=== PATIENT | male | born 1985 | race Caucasian/White ===

== ENCOUNTER 2016-03-18 09:30 | Emergency (ER) | payer OTHER ==
[~2016-03-18] VITALS: Ht 185.4 cm; Wt 101.9 kg
[2016-03-18 09:34] VITALS: TEMP 36.8; Ht 185.4 cm; Wt 101.9 kg
[2016-03-18] MEDS ORDERED: MoRPHine SULFATE 4 MG/ML 1 ML CARP\\VIAL IV STA (10:01)
[2016-03-18] MEDS ORDERED: SODIUM CHLORIDE 0.9% 1000ML 1,000 ML IV STA (10:01)
--- NOTE | 2016-03-18 10:05 | EMERGENCY ROOM VISIT NOTE ---
History First contact with patient: 09:48 Chief Complaint: FLANK PAIN Stated Complaint: KIDNEY PAIN, BLOOD IN URINE History of Present Illness The patient is a 31 year old male who presents to the Emergency Room with complaints of bilateral flank pain. The patient states he has had pain over the last several days but is worse today. The pain radiates into the groin. The patient reports hematuria. He reports nausea secondary to pain. He rates his discomfort a 10/10. He denies any fevers. He denies any diarrhea. He denies any penile rash or discharge. He has a history of kidney stones. He denies any falls or injuries. He states that he just had his prostate checked by his family doctor. 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 He states that it stemmed from bilateral pneumonia. He states he was on dialysis for 2 weeks because of it. Review of Systems A 10 system review of systems was completed with positives and pertinent negatives listed in the HPI. Past Medical/Surgical History Medical Problems: (1) Asthma (2) Postconcussive syndrome (3) PTSD (post-traumatic stress disorder) Social History Smoking Status: Never Smoker Housing Status: lives with family Current/Historical Medications Scheduled Albuterol Hfa (Ventolin Hfa), 2-4 PUFFS INH BID Albuterol Sulf (Proventil 0.083% 2.5MG/3ML), 2.5 MG INH QID Fluticasone Furoate-Vilanterol (Breo Ellipta), 2 PUFFS INH BID Sertraline (Zoloft), 100 MG PO DAILY Scheduled PRN Oxycodone Ir (Roxicodone Ir), 1-2 TAB PO Q4H PRN for Pain Allergies Coded Allergies: Penicillins (Unverified Allergy, Intermediate, ITCHY BLOTCHES, 03/18/16) Physical Exam Vital Signs Date Time Temp Pulse Resp B/P Pulse Ox O2 Delivery O2 Flow Rate FiO2 03/18/16 14:27 101 20 133/75 96 Room Air 03/18/16 13:20 99 20 135/78 97 Room Air 03/18/16 11:30 92 20 128/72 97 Room Air 03/18/16 09:34 36.8 98 18 136/76 99 Room Air Physical Exam VITALS: Vitals are noted on the nurse's note and reviewed by myself. Vital signs stable. The patient afebrile. GENERAL:This is a 31 year old male, in no acute distress, nondiaphoretic, well- developed well-nourished. SKIN: The skin was without rashes, erythema, edema, or bruising. There is no tenting of the skin. Capillary reflex less than 2 seconds. HEAD: Normocephalic atraumatic. EARS: The external ears are normal in appearance. EYES: Pupils equal round and reactive to light and accommodation. Conjunctivae without injection, sclerae without icterus. Extraocular movements intact. NOSE: Patent, turbinates without inflammation or discharge. MOUTH: Mucous membranes moist. Tonsils are not enlarged. Pharynx without erythema or exudate. Uvula midline. Airway patent. Tongue does not deviate. NECK: Supple without nuchal rigidity. No lymphadenopathy. No thyromegaly. Cervical spine is nontender. No JVD. HEART: Regular rate and rhythm without murmurs gallops or rubs. LUNGS: Clear to auscultation bilaterally without wheezes, rales or rhonchi. No retractions or accessory muscle use. ABDOMEN: Positive bowel sounds x 4. Soft, diffuse lower abdominal tenderness, without masses or organomegaly. MUSCULOSKELETAL: No muscle atrophy, erythema, or edema noted. Full range of motion in all extremities. Normal gait. Strength 5/5 throughout. NEURO: Patient was alert and oriented to person place and time No focal neurological deficits. Medical Decision & Procedures ER Provider Diagnostic Interpretation: [~ rep ct add3]] ABDOMEN AND PELVIS CT WITHOUT CONTRAST CT DOSE: 617.04 mGy.cm HISTORY: flank pain, hematuria, h/o kidney stone TECHNIQUE: Multiaxial CT images of the abdomen and pelvis were performed without the use of intravenous and oral contrast according to the standard department stone protocol. COMPARISON STUDY: None. FINDINGS: Lung bases are clear. Liver spleen and pancreas appears unremarkable unremarkable. Several bilateral renal calcifications measuring 2 to 3 mm. No evidence for an obstructing urinary tract calculus. Bladder is midline. Bowel pattern is nonobstructive. Patient is status post prior appendectomy. Several scattered sigmoid diverticuli with no evidence for diverticulitis. IMPRESSION: 1. Several bilateral nonobstructing renal calcifications. 2. No evidence for an obstructing urinary tract calculus. 3. Nonobstructive bowel pattern. 4. Prior appendectomy. 5. Scattered clonic diverticuli with no evidence for acute diverticulitis. Laboratory Results 03/18/16 09:52 Red Blood Count 5.08, Mean Corpuscular Volume 68.3, Mean Corpuscular Hemoglobin 19.5, Mean Corpuscular Hemoglobin Concent 28.5, Mean Platelet Volume 9.6 03/18/16 09:52 Test 03/18/16 09:46 03/18/16 09:52 Urine Color RED Urine Appearance CLOUDY (CLEAR) Urine pH 6.5 (4.5-7.5) Urine Specific [place] 1.025 (1.000-1.030) Urine Protein TRACE (NEG) Urine Glucose (UA) NEG (NEG) Urine Ketones NEG (NEG) Urine Occult Blood 3+ (NEG) Urine Nitrite NEG (NEG) Urine Bilirubin NEG (NEG) Urine Urobilinogen NEG (NEG) Urine Leukocyte Esterase NEG (NEG) Urine RBC >30 /hpf (0-4) Urine WBC 5-10 /hpf (0-5) Urine Epithelial Cells 0-5 /lpf (0-5) Urine Bacteria NEG (NEG) White Blood Count 5.86 K/uL (4.8-10.8) Red Blood Count 5.08 M/uL (4.7-6.1) Hemoglobin 9.9 g/dL (14.0-18.0) Hematocrit 34.7 % (42-52) Mean Corpuscular Volume 68.3 fL (80-100) Mean Corpuscular Hemoglobin 19.5 pg (25-34) Mean Corpuscular Hemoglobin Concent 28.5 g/dl (32-36) Platelet Count 389 K/uL (130-400) Mean Platelet Volume 9.6 fL (7.4-10.4) RDW Standard Deviation 42.1 fL (36.4-46.3) RDW Coefficient of Variation 16.8 % (11.5-14.5) Neutrophils % (Manual) 49.6 % Lymphocytes % (Manual) 19.8 % Variant Lymphocytes % (manual) 24.3 % Monocytes % (Manual) 5.4 % Eosinophils % (Manual) 0.9 % Neutrophils # (Manual) 2.91 K/uL (1.4-6.5) Total Absolute Neutrophils 2.91 K/uL (1.4-6.5) Lymphocytes # (Manual) 1.16 K/uL (1.2-3.4) Absolute Variant Lymphocytes 1.42 K/uL Total Absolute Lymphocytes 2.58 K/uL (1.2-3.4) Monocytes # (Manual) 0.32 K/uL (0.11-0.59) Eosinophils # (Manual) 0.05 K/uL (0-0.5) Microcytosis PRESENT Ovalocytes 1+ Anion Gap 11.0 mmol/L (3-11) Est Creatinine Clear Calc Drug Dose 119.8 ml/min Estimated GFR () 101.7 Estimated GFR (Non- 87.7 BUN/Creatinine Ratio 13.0 (10-20) Calcium Level 8.9 mg/dl (8.5-10.1) Total Bilirubin 1.0 mg/dl (0.2-1) Aspartate Amino Transf (AST/SGOT) 35 U/L (15-37) Alanine Aminotransferase (ALT/SGPT) 50 U/L (12-78) Alkaline Phosphatase 113 U/L (45-117) Total Protein 8.0 gm/dl (6.4-8.2) Albumin 4.0 gm/dl (3.4-5.0) Globulin 4.0 gm/dl (2.5-4.0) Albumin/Globulin Ratio 1.0 (0.9-2) Medications Administered Medications (Trade) Dose Ordered Sig/Reena Route Start Time Stop Time Status Last Admin Dose Admin Sodium Chloride (Nss 1000ml) 1,000 ml @ 999 mls/hr Q1H1M STAT IV 03/18/16 10:01 03/18/16 11:01 DC 03/18/16 10:01 999 MLS/HR Morphine Sulfate (MoRPHine SULFATE INJ) 4 mg NOW STAT IV 03/18/16 10:01 03/18/16 10:04 DC 03/18/16 10:18 4 MG Hydromorphone HCl (Dilaudid Inj) 1 mg NOW STAT IV 03/18/16 12:04 03/18/16 12:05 DC 03/18/16 12:11 1 MG ED Course The patient was seen and examined. Previous visits were reviewed. The patient does not have a fever or leukocytosis. He is anemic with hemoglobin and hematocrit 9.9 and 34.7, respectively. He does not have any significant electrolyte abnormality. Urinalysis reveals hematuria. CT scan of the abdomen and pelvis was obtained as above and does not reveal any obvious cause for the hematuria and bilateral flank pain The patient was given 4 mg IV morphine with only minimal improvement in his pain He was given 1 mg IV Dilaudid with marked improvement in his pain He was hydrated with normal saline 1 L The patient has severe bilateral flank pain, hematuria and anemia. He has a history of "multisystem organ failure" secondary to pneumonia. I cannot find the exact etiology of his symptoms at this time. I did recommend that the patient stay in the hospital for further evaluation and management. He may need cystoscopy. The patient declines admission to the hospital. He prefers to follow-up with his family doctor. I feel that the patient does need to see urology in a timely manner if he will not stay in the hospital. Case management and I spoke with [facility] urology office and had some difficulty obtaining a timely appointment. I did ask Dr. Doshi to see the patient and he recommends that the patient be seen by urology on Monday or Monday in the office; otherwise, urology should come to the emergency Department today to see the patient. We were then able to obtain an appointment on Monday at 12:30 PM. The patient was advised of this. The patient was given a prescription for pain medication. The patient should return to the emergency Department with any worsening symptoms. The patient was also seen and examined by who agrees with the assessment and treatment plan. Medical Decision DIFFERENTIAL DIAGNOSIS: Hepatitis, cholecystitis, cholangitis, biliary colic, pancreatitis, pneumonia, subdiaphragmatic abscess, appendicitis, inguinal hernia , nephrolithiasis, inflammatory bowel disease, mesenteric adenitis, peptic ulcer disease, GERD, gastritis, pancreatitis, myocardial infarction, pericarditis, ruptured aortic aneurysm, appendicitis, gastroenteritis, bowel obstruction, splenic infarct, diverticulitis, mesenteric ischemia, metabolic, peritonitis, among others. [place] Drug Monitoring [place] Search Results: patient reviewed within database, see additional documentation Drug Monitoring Findings: The patient does receive pain medication somewhat regularly. However, given the patient's presentation and symptoms I did elect to give him a small prescription for pain medication. Impression Primary Impression: Flank pain Additional Impressions: Hematuria Anemia Departure Information Dispostion Home / Self-Care Condition GOOD Prescriptions Oxycodone Ir (Roxicodone Ir) 5 Mg Tab 1-2 TAB PO Q4H Y for Pain, #30 TAB For Initial Treatment Prov: Gertrude Perla PA-C 03/18/16 Referrals Michael Lee D.ORussell (PCP) Obed Noyola MD Patient Instructions ED Flank Pain Uncertain Cause, ED Hematuria, [facility] Additional Instructions Oxy IR 1-2 tablets every 4-6 hrs as needed for worse pain. No driving or alcohol use with Oxy IR. Follow-up with urology for further evaluation and management Return with any worsening pain, bleeding or generalized worsening symptoms Problem Qualifiers Additional Impressions:
[2016-03-18 10:27] LABS: CALCIUM 8.9 mg/dl (8.5-10.1); CREATININE 1.1 mg/dl (0.60-1.40); HEMATOCRIT 34.7 % (42-52); MEAN CELL VOLUME 68.3 fL (80-100); MEAN CORPUSCULAR HEMOGLOBIN 19.5 pg (25-34); MEAN CORPUSCULAR HGB CONC 28.5 g/dl (32-36); MEAN PLATELET VOLUME 9.6 fL (7.4-10.4); PLATELET COUNT 389 K/uL (130-400); POTASSIUM 3.8 mmol/L (3.5-5.1); RED BLOOD COUNT 5.08 M/uL (4.7-6.1); WHITE BLOOD COUNT 5.86 K/uL (4.8-10.8)
[2016-03-18 10:45] LABS: MANUAL MICROSCOPIC REQUIRED? YES; URINE APPEARANCE CLOUDY (CLEAR); URINE BILIRUBIN NEG (NEG); URINE COLOR RED; URINE NITRITE NEG (NEG); URINE PH 6.5 (4.5-7.5); URINE SPECIFIC GRAVITY 1.025 (1.000-1.030); UROBILINOGEN NEG (NEG)
[2016-03-18 10:48] LABS: COMPLETE YES; EOSINOPHIL % 0.9 %; LYMPH ABS # 1.16 K/uL (1.2-3.4); LYMPHOCYTE % 19.8 %; MICROCYTOSIS PRESENT; NEUTROPHILS % 49.6 %; OVALOCYTES 1+; VARIANT LYM ABS # 1.42 K/uL; VARIANT LYMPHOCYTE % 24.3 %
[2016-03-18 10:52] LABS: URINE RBC >30 /hpf (0-4)
[2016-03-18 10:53] LABS: REVIEW REQ? NO; URINE BACTERIA NEG (NEG)
[2016-03-18 10:54] LABS: ZZUR CULT IF INDIC CLEAN CATCH NO
--- NOTE | 2016-03-18 11:21 | DIAGNOSTIC IMAGING REPORT ---
ABDOMEN AND PELVIS CT WITHOUT CONTRAST CT DOSE: 617.04 mGy.cm HISTORY: flank pain, hematuria, h/o kidney stone TECHNIQUE: Multiaxial CT images of the abdomen and pelvis were performed without the use of intravenous and oral contrast according to the standard department stone protocol. COMPARISON STUDY: None. FINDINGS: Lung bases are clear. Liver spleen and pancreas appears unremarkable unremarkable. Several bilateral renal calcifications measuring 2 to 3 mm. No evidence for an obstructing urinary tract calculus. Bladder is midline. Bowel pattern is nonobstructive. Patient is status post prior appendectomy. Several scattered sigmoid diverticuli with no evidence for diverticulitis. IMPRESSION: 1. Several bilateral nonobstructing renal calcifications. 2. No evidence for an obstructing urinary tract calculus. 3. Nonobstructive bowel pattern. 4. Prior appendectomy. 5. Scattered clonic diverticuli with no evidence for acute diverticulitis. Electronically signed by: Derik Collier M.D. 03/18/2016 11:20 AM Dictated Date/Time: 03/18/2016 11:15 AM
[2016-03-18] MEDS ORDERED: HYDROmorphone INJ 1 MG/ML SYR IV STA (12:04)
[2016-03-18] MEDS ORDERED: OXYC1TAB3 PO (13:38)
[2016-03-18 14:27] VITALS: BP 133/75; PULSE 101; O2SAT 96
--- NOTE | 2016-03-19 08:20 | EMERGENCY ROOM VISIT NOTE ---
ED Visit Note First contact with patient: 09:48 31-year-old male with bilateral flank pain, hematuria and anemia was fully evaluated by Malathi Perla PA-C. Please see her note. I also independently evaluated the patient. We felt that the patient should be admitted but the patient declined. Urology follow-up was arranged. IMPRESSION: Hematuria Anemia
[2016-04-08] MEDS ORDERED: RXC5 PO (10:43)
[2016-04-08] MEDS ORDERED: SENN-65 PO (10:43)
[2016-05-13] MEDS ORDERED: TRAM-10 PO (09:32)
== END 2016-03-18 14:28 | disposition home or self-care (01) ==
LOC: C.EDB 09:34 → C.EDC 14:28
DX: R10.30 Lower abdominal pain, unspecified (principal); R31.9 Hematuria, unspecified; D64.9 Anemia, unspecified; J45.909 Unspecified asthma, uncomplicated; Z87.820 Personal history of traumatic brain injury; Z79.899 Other long term (current) drug therapy; Z88.0 Allergy status to penicillin

== ENCOUNTER → 2016-03-22 | Outpatient (CLI) | payer OTHER ==
[~2016-03-22] MED LIST: ACET-1311 PO; ADVIN25/60 INH; ALBINS/ INH; DICY20TA35 PO; FLUT1INH INH; ONDA4TAB10 SL; OXYC1TAB3 PO; RXC5 PO; SENN-65 PO; SERT-234 PO; TRAM-10 PO; VNTHFA/IN INH
== END | disposition home or self-care (01) ==
LOC: C.PATHSPEC 17:17
PROVIDERS: ATTEND Urology
DX: R31.0 Gross hematuria (principal); R82.8 Abnormal findings on cytological and histological examination of urine

== ENCOUNTER 2016-04-02 10:09 | Inpatient (IN) | payer OTHER ==
[~2016-04-02] VITALS: Ht 185.4 cm; Wt 96.0 kg
[~2016-04-02 10:09] MED LIST changes: -ACET-1311 PO; -ADVIN25/60 INH; -ALBINS/ INH; -DICY20TA35 PO; -FLUT1INH INH; -ONDA4TAB10 SL; -RXC5 PO; -SENN-65 PO; -SERT-234 PO; -TRAM-10 PO; -VNTHFA/IN INH
[2016-04-02] MEDS ORDERED: ACET-1311 PO (10:35)
[2016-04-02] MEDS ORDERED: SODIUM CHLORIDE 0.9% 1000ML 1,000 ML IV STA ×2 (10:50)
[2016-04-02] MEDS ORDERED: ONDANSETRON INJ 2 MG/ML 2 ML VIAL IV STA (10:50)
[2016-04-02 11:20] LABS: BASO % 0.7 %; BASO ABS # 0.04 K/uL (0-0.2); EOS % 2.2 %; HEMATOCRIT 32.7 % (42-52); IG% 0.5 %; LYMPH % 28.9 %; LYMPH ABS # 1.61 K/uL (1.2-3.4); MEAN CELL VOLUME 64.8 fL (80-100); MEAN CORPUSCULAR HEMOGLOBIN 19.4 pg (25-34); MEAN PLATELET VOLUME 9.2 fL (7.4-10.4); NEUT % 58.7 %; PLATELET COUNT 301 K/uL (130-400); RED BLOOD COUNT 5.05 M/uL (4.7-6.1); WHITE BLOOD COUNT 5.58 K/uL (4.8-10.8)
[2016-04-02] MEDS: MoRPHine SULFATE 10 MG/ML CARP/VIAL IV PRN ×3 (11:23→13:41)
[2016-04-02 11:40] LABS: PARTIAL THROMBOPLASTIN RATIO 0.9
[2016-04-02 11:45] LABS: BUN/CREATININE RATIO 11.6 (10-20); CALCIUM 9.1 mg/dl (8.5-10.1); CREATININE 1.1 mg/dl (0.60-1.40); POTASSIUM 3.6 mmol/L (3.5-5.1)
[2016-04-02 11:45] LABS: MANUAL MICROSCOPIC REQUIRED? YES; REVIEW REQ? NO; URINE APPEARANCE CLOUDY (CLEAR); URINE BILIRUBIN NEG (NEG); URINE COLOR RED; URINE NITRITE NEG (NEG); URINE PH 6.5 (4.5-7.5); UROBILINOGEN NEG (NEG)
[2016-04-02 11:46] LABS: COMPLETE YES; MICROCYTOSIS PRESENT; OVALOCYTES 1+
[2016-04-02 11:48] LABS: ALB/GLOB RATIO 1.1 (0.9-2)
[2016-04-02 11:49] LABS: URINE MUCUS PRESENT (NONE PRSENT); URINE RBC >30 /hpf (0-4); URINE WBC >30 /hpf (0-5)
[2016-04-02 11:50] LABS: URINE BACTERIA NEG (NEG); ZZUR CULT IF INDIC CLEAN CATCH YES
--- NOTE | 2016-04-02 12:14 | DIAGNOSTIC IMAGING REPORT ---
EXAMINATION: RENAL ULTRASOUND CLINICAL HISTORY: FLANK PAIN COMPARISON STUDY: CT scan dated to 1016. FINDINGS: The right kidney measures 12.2 cm. The left kidney measures 12.3 cm. There is no evidence of hydronephrosis. No renal masses are visualized. There is a 6 mm echogenic focus within the lower pole the right kidney suspicious for a calculus. There is an 8 mm echogenic focus within the midpole of the left kidney suspicious for a calculus. The bladder was not well-distended. Neither ureteral jet was visualized. IMPRESSION : Bilateral nephrolithiasis. No evidence of hydronephrosis. Electronically signed by: Ananda Jones M.D. 04/02/2016 12:13 PM Dictated Date/Time: 04/02/2016 12:11 PM
[2016-04-02] MEDS ORDERED: CEFTRIAXONE SOD INJ 1 GM ADDVIAL IV STA (12:57)
[2016-04-02] MEDS ORDERED: ALUMINUM/MAGNESIUM/SIMETH (MAALOX MAX) 30 ML UDC PO PRN (13:45)
[2016-04-02] MEDS ORDERED: ONDANSETRON INJ 2 MG/ML 2 ML VIAL IV PRN (13:45)
[2016-04-02] MEDS ORDERED: MAGNESIUM HYDROXIDE SUSP 30 ML UDC PO PRN (13:45)
[2016-04-02] MEDS ORDERED: ACETAMINOPHEN 325 MG TAB PO PRN (13:45)
[2016-04-02] MEDS ORDERED: POLYETHYLENE (MIRALAX) 17 GM PACK PO PRN (13:45)
[2016-04-02 14:00] VITALS: O2SAT 98; Ht 185.4 cm; Wt 96.0 kg
[2016-04-02 14:47] LABS: FERRITIN 4.6 ng/ml (8.0-388.0)
--- NOTE | 2016-04-02 14:51 | EMERGENCY ROOM VISIT NOTE ---
History Report prepared by Luz: Mone Montano Under the Supervision of: Dr. Compa Ponce M.D. First contact with patient: 10:47 Chief Complaint: URINARY SYMPTOMS Stated Complaint: SEVERE KIDNEY PAIN, BLOOD IN URINE Nursing Triage Summary: I was here couple weeks ago for same symptoms. I did follow up with urology. They placed me on antibiotics. They arent helping. my urine is so bloody it almost looks black in color History of Present Illness The patient is a 31 year old male who presents to the Emergency Room with complaints of worsening bilateral flank pain starting 2 week ago. The patient states his current pain is a 10/10 in severity. He states that he was seen at the ED on March 18 where he was diagnosed with kidney stones. He states that over the last 2 weeks he has been urinating blood and he has only been able to urinate very small amounts. He states that he saw his urologist on March 22 where he was prescribed Bactrim for a possible infection. He states his urologist also checked his prostate and he had a cystoscopy and the urologist was not able to determine where the blood was coming from. The patient denies any testicular pain. Source of History: patient Onset: 2 weeks [employer] Position: other (bilateral flank) Symptom Intensity: 10/10 Timing: worsening Note: Associated symptoms: urinating blood, only able to urinate small amounts. Patient denies testicular pain. Review of Systems See HPI for pertinent positives & negatives. A total of 10 systems reviewed and were otherwise negative. Past Medical & Surgical Medical Problems: (1) Asthma (2) Postconcussive syndrome (3) PTSD (post-traumatic stress disorder) Family History Diabetes mellitus FH: heart disease FHx: lung disease Hypertension Kidney disease Kidney stones Social History Smoking Status: Never Smoker Marital Status: single Housing Status: lives with family Occupation Status: unemployed Current/Historical Medications Scheduled Albuterol Hfa (Ventolin Hfa), 2-4 PUFFS INH BID Albuterol Sulf (Proventil 0.083% 2.5MG/3ML), 2.5 MG INH QID Fluticasone Furoate-Vilanterol (Breo Ellipta), 2 PUFFS INH BID Sertraline (Zoloft), 100 MG PO DAILY Scheduled PRN Acetaminophen (Tylenol), 650 MG PO DAILY PRN for Pain Allergies Coded Allergies: Penicillins (Unverified Allergy, Intermediate, ITCHY BLOTCHES, 04/02/16) Physical Exam Vital Signs Date Time Temp Pulse Resp B/P Pulse Ox O2 Delivery O2 Flow Rate FiO2 04/02/16 14:00 98 Room Air 04/02/16 13:30 85 18 135/95 98 Room Air 04/02/16 11:18 87 18 136/83 96 Room Air 04/02/16 10:19 37.1 99 18 133/101 99 Room Air Physical Exam GENERAL: Patient is in no acute distress. HEENT: No acute trauma, normocephalic atraumatic, mucous membranes moist, no nasal congestion, no scleral icterus. NECK: No stridor, no adenopathy, no meningismus, trachea is midline. LUNGS: Clear to auscultation bilaterally, no wheeze, no rhonchi, breath sounds equal. HEART: Without murmurs gallops or rubs, regular rate and rhythm. ABDOMEN: Soft, diffusely tender, bowel sounds positive, no hernias, no peritonitis. EXTREMITIES: No cyanosis or edema, full range of motion of all the joints without pain or difficulty, no signs for acute trauma. BACK: Bilateral flank discomfort with percussion. NEUROLOGIC: Oriented x 3, no acute motor or sensory deficits, no focal weakness. SKIN: No rash, no jaundice, no diaphoresis. Medical Decision & Procedures ER Provider Diagnostic Interpretation: US results as stated below per my review and radiologist interpretation: EXAMINATION: RENAL ULTRASOUND CLINICAL HISTORY: FLANK PAIN COMPARISON STUDY: CT scan dated to 1016. FINDINGS: The right kidney measures 12.2 cm. The left kidney measures 12.3 cm. There is no evidence of hydronephrosis. No renal masses are visualized. There is a 6 mm echogenic focus within the lower pole the right kidney suspicious for a calculus. There is an 8 mm echogenic focus within the midpole of the left kidney suspicious for a calculus. The bladder was not well-distended. Neither ureteral jet was visualized. IMPRESSION : Bilateral nephrolithiasis. No evidence of hydronephrosis. Electronically signed by: Ananda Jones M.D. 04/02/2016 12:13 PM Dictated Date/Time: 04/02/2016 12:11 PM Laboratory Results 04/02/16 10:40 Red Blood Count 5.05, Mean Corpuscular Volume 64.8, Mean Corpuscular Hemoglobin 19.4, Mean Corpuscular Hemoglobin Concent 30.0, Mean Platelet Volume 9.2, Neutrophils (%) (Auto) 58.7, Lymphocytes (%) (Auto) 28.9, Monocytes (%) (Auto) 9.0, Eosinophils (%) (Auto) 2.2, Basophils (%) (Auto) 0.7, Neutrophils # (Auto) 3.28, Lymphocytes # (Auto) 1.61, Monocytes # (Auto) 0.50, Eosinophils # (Auto) 0.12, Basophils # (Auto) 0.04 04/02/16 10:40 Test 04/02/16 10:30 04/02/16 10:40 04/02/16 13:09 04/02/16 13:51 Urine Color RED Urine Appearance CLOUDY (CLEAR) Urine pH 6.5 (4.5-7.5) Urine Specific [place] 1.020 (1.000-1.030) Urine Protein 2+ (NEG) Urine Glucose (UA) NEG (NEG) Urine Ketones NEG (NEG) Urine Occult Blood 3+ (NEG) Urine Nitrite NEG (NEG) Urine Bilirubin NEG (NEG) Urine Urobilinogen NEG (NEG) Urine Leukocyte Esterase NEG (NEG) Urine RBC >30 /hpf (0-4) Urine WBC >30 /hpf (0-5) Urine Epithelial Cells 5-10 /lpf (0-5) Urine Bacteria NEG (NEG) Urine Mucus PRESENT (NONE PRSENT) White Blood Count 5.58 K/uL (4.8-10.8) Red Blood Count 5.05 M/uL (4.7-6.1) Hemoglobin 9.8 g/dL (14.0-18.0) Hematocrit 32.7 % (42-52) Mean Corpuscular Volume 64.8 fL (80-100) Mean Corpuscular Hemoglobin 19.4 pg (25-34) Mean Corpuscular Hemoglobin Concent 30.0 g/dl (32-36) Platelet Count 301 K/uL (130-400) Mean Platelet Volume 9.2 fL (7.4-10.4) Neutrophils (%) (Auto) 58.7 % Lymphocytes (%) (Auto) 28.9 % Monocytes (%) (Auto) 9.0 % Eosinophils (%) (Auto) 2.2 % Basophils (%) (Auto) 0.7 % Neutrophils # (Auto) 3.28 K/uL (1.4-6.5) Lymphocytes # (Auto) 1.61 K/uL (1.2-3.4) Monocytes # (Auto) 0.50 K/uL (0.11-0.59) Eosinophils # (Auto) 0.12 K/uL (0-0.5) Basophils # (Auto) 0.04 K/uL (0-0.2) RDW Standard Deviation 38.5 fL (36.4-46.3) RDW Coefficient of Variation 16.5 % (11.5-14.5) Immature Granulocyte % (Auto) 0.5 % Immature Granulocyte # (Auto) 0.03 K/uL (0.00-0.02) Microcytosis PRESENT Ovalocytes 1+ Activated Partial Thromboplast Time 23.8 SECONDS (21.0-31.0) Partial Thromboplastin Ratio 0.9 Anion Gap 9.0 mmol/L (3-11) Est Creatinine Clear Calc Drug Dose 120.5 ml/min Estimated GFR () 101.7 Estimated GFR (Non- 87.7 BUN/Creatinine Ratio 11.6 (10-20) Calcium Level 9.1 mg/dl (8.5-10.1) Total Bilirubin 2.1 mg/dl (0.2-1) Aspartate Amino Transf (AST/SGOT) 16 U/L (15-37) Alanine Aminotransferase (ALT/SGPT) 27 U/L (12-78) Alkaline Phosphatase 101 U/L (45-117) Total Creatine Kinase 50 U/L (39-308) C-Reactive Protein < 0.29 mg/dl (0-0.29) Total Protein 7.7 gm/dl (6.4-8.2) Albumin 4.0 gm/dl (3.4-5.0) Globulin 3.7 gm/dl (2.5-4.0) Albumin/Globulin Ratio 1.1 (0.9-2) Lipase 123 U/L (73-393) Procalcitonin 0.08 ng/mL (0-0.5) Transferrin % Saturation % (20-50) Test 04/02/16 14:12 Laboratory results reviewed by me. Medications Administered Medications (Trade) Dose Ordered Sig/Reena Route Start Time Stop Time Status Last Admin Dose Admin Ondansetron HCl 4 mg 4 mg NOW STAT IV 04/02/16 10:50 04/02/16 10:55 DC 04/02/16 11:23 4 MG Sodium Chloride 1,000 ml @ 999 mls/hr Q1H1M STAT IV 04/02/16 10:50 04/02/16 11:50 DC 04/02/16 11:18 999 MLS/HR Sodium Chloride (Nss 1000ml) 1,000 ml @ 200 mls/hr Q5H STAT IV 04/02/16 10:50 04/02/16 15:49 04/02/16 12:11 200 MLS/HR Morphine Sulfate (MoRPHine SULFATE INJ) 6 mg Q15M PRN IV 04/02/16 11:00 04/16/16 10:59 04/02/16 13:41 6 MG Ceftriaxone Sodium (Rocephin Inj) 1 gm NOW STAT IV 04/02/16 12:57 04/02/16 12:59 DC 04/02/16 13:41 1 GM ED Course 1049: The patient was evaluated in room C5. A complete history and physical exam was performed. 1050: Ordered Sodium Chloride 1,000 ml @ 200 mls/hr IV, Sodium Chloride 1,000 ml @ 999 mls/hr IV, Zofran Inj 4 mg IV. 1100: Ordered Morphine Sulfate 6 mg IV. 1243: I discussed the case with Dr. Feng Urology. He review his records from his visit and did not think the patient's symptoms were from a stone but put the patient on Bactrim as a precaution. 1250: I reevaluated the patient and he was resting comfortably. I discussed with him the possibility of staying for further evaluation and he agreed. 1257: Ordered Rocephin Inj 1 gm IV. 1307: I discussed the case with Dr. Mendez [facility] Hospitalist. He agreed to evaluate the patient for further management and care. Medical Decision The patient is a 31 year old male who presents to the ED with complaints of urinary symptoms. Differential diagnoses considered include urinary retention, real colic, dehydration, electrolyte imbalance, anemia, urinary infection, and malignancy. There is no leukocytosis. The patient is quite anemic with a hemoglobin in the range of 9. No significant electrolyte abnormality, kidney failure or hepatitis. There is no pancreatitis, there is no coagulopathy. Urinalysis is consistent with possible infection with white cells and red cells. Urine culture is pending. Renal ultrasound does not show hydronephrosis. The patient presents with bilateral flank pain, hematuria. He is anemic with a dirty-appearing urine. He is already on Bactrim. He has been seen by urology as an outpatient. Given the circumstances, admission/observation is warranted. He may have glomerulonephritis, he may have a bilateral pyelonephritis. Further care and evaluation in the hospital is needed. He received IV saline, IV morphine and IV Zofran, he received IV ceftriaxone. I spoke with the patient and case management. The on-call hospitalist was consulted. Consults Time Called: 1242 Consulting Physician: Urology Returned Call: [phone] I discussed the case with Dr. Jung Quarles. He review his records from his visit and did not think the patient's symptoms were from a stone but put the patient on Bactrim as a precaution. Additional Consults: Time Called: 1257 Consulted Physician: Dr. Vanessa SCHWARTZ Hospitalist Returned Call: [phone] Additional Comments: I discussed the case with Dr. Vanessa SCHWARTZ Hospitalist. He agreed to evaluate the patient for further management and care. Impression Primary Impression: Bilateral flank pain Additional Impressions: Hematuria Anemia Scribe Attestation The scribe's documentation has been prepared under my direction and personally reviewed by me in its entirety. I confirm that the note above accurately reflects all work, treatment, procedures, and medical decision making performed by me. Departure Information Dispostion Being Evaluated By Hospitalist Referrals Michael Lee D.O. (PCP) Patient Instructions My [facility] Problem Qualifiers
[2016-04-02 15:06] LABS: ANTI-STREP O SCR: 5YRS OR > POS IU/ml (<200 IU)
[2016-04-02 15:07] LABS: ANTI-STREP O TITRE: 5YR OR > 800 IU/ml (<200 IU)
[2016-04-02] MEDS ORDERED: HYDROmorphone INJ 0.5 MG/0.5 ML SYR IV STA (15:08)
[2016-04-02] MEDS ORDERED: ALBUTEROL HFA 8 GM INHALER INH PRN (15:15)
--- NOTE | 2016-04-02 15:35 | History and Physical ---
History & Physical Date & Time of Service: Apr 02, 2016 at 15:33 Chief Complaint: Severe Kidney Pain, Blood In Urine Primary Care Physician: Michael Lee D.O. Family History Diabetes mellitus FH: heart disease FHx: lung disease Hypertension Kidney disease Kidney stones Social History Smoking Status: Never Smoker Marital Status: single Occupational Status: unemployed Allergies Coded Allergies: Penicillins (Unverified Allergy, Intermediate, ITCHY BLOTCHES, 04/02/16) Home Medications Scheduled Albuterol Hfa (Ventolin Hfa), 2-4 PUFFS INH BID Albuterol Sulf (Proventil 0.083% 2.5MG/3ML), 2.5 MG INH QID Fluticasone Furoate-Vilanterol (Breo Ellipta), 2 PUFFS INH BID Sertraline (Zoloft), 100 MG PO DAILY Scheduled PRN Acetaminophen (Tylenol), 650 MG PO DAILY PRN for Pain Physical Exam Vital Signs Date Time Temp Pulse Resp B/P Pulse Ox O2 Delivery O2 Flow Rate FiO2 04/02/16 14:54 83 18 162/98 96 Room Air 04/02/16 14:00 98 Room Air 04/02/16 13:30 85 18 135/95 98 Room Air 04/02/16 11:18 87 18 136/83 96 Room Air 04/02/16 10:19 37.1 99 18 133/101 99 Room Air Diagnostics Laboratory Results Results Past 24 Hours Test 04/02/16 10:30 04/02/16 10:40 04/02/16 14:12 Range/Units Urine Color RED Urine Appearance CLOUDY CLEAR Urine pH 6.5 4.5-7.5 Urine Specific [place] 1.020 1.000-1.030 Urine Protein 2+ NEG Urine Glucose (UA) NEG NEG Urine Ketones NEG NEG Urine Occult Blood 3+ NEG Urine Nitrite NEG NEG Urine Bilirubin NEG NEG Urine Urobilinogen NEG NEG Urine Leukocyte Esterase NEG NEG Urine RBC >30 0-4 /hpf Urine WBC >30 0-5 /hpf Urine Epithelial Cells 5-10 0-5 /lpf Urine Bacteria NEG NEG Urine Mucus PRESENT NONE PRSENT White Blood Count 5.58 4.8-10.8 K/uL Red Blood Count 5.05 4.7-6.1 M/uL Hemoglobin 9.8 14.0-18.0 g/dL Hematocrit 32.7 42-52 % Mean Corpuscular Volume 64.8 80-100 fL Mean Corpuscular Hemoglobin 19.4 25-34 pg Mean Corpuscular Hemoglobin Concent 30.0 32-36 g/dl Platelet Count 301 130-400 K/uL Mean Platelet Volume 9.2 7.4-10.4 fL Neutrophils (%) (Auto) 58.7 % Lymphocytes (%) (Auto) 28.9 % Monocytes (%) (Auto) 9.0 % Eosinophils (%) (Auto) 2.2 % Basophils (%) (Auto) 0.7 % Neutrophils # (Auto) 3.28 1.4-6.5 K/uL Lymphocytes # (Auto) 1.61 1.2-3.4 K/uL Monocytes # (Auto) 0.50 0.11-0.59 K/uL Eosinophils # (Auto) 0.12 0-0.5 K/uL Basophils # (Auto) 0.04 0-0.2 K/uL RDW Standard Deviation 38.5 36.4-46.3 fL RDW Coefficient of Variation 16.5 11.5-14.5 % Immature Granulocyte % (Auto) 0.5 % Immature Granulocyte # (Auto) 0.03 0.00-0.02 K/uL Microcytosis PRESENT Ovalocytes 1+ Erythrocyte Sedimentation Rate 4 0-14 mm/hr Absolute Reticulocyte Count 0.09 0.02-0.10 10^6/uL Percent Reticulocyte Count 1.7 0.5-2.0 % Activated Partial Thromboplast Time 23.8 21.0-31.0 SECONDS Partial Thromboplastin Ratio 0.9 Sodium Level 134 136-145 mmol/L Potassium Level 3.6 3.5-5.1 mmol/L Chloride Level 100 98-107 mmol/L Carbon Dioxide Level 25 21-32 mmol/L Anion Gap 9.0 3-11 mmol/L Blood Urea Nitrogen 13 7-18 mg/dl Creatinine 1.10 0.60-1.40 mg/dl Est Creatinine Clear Calc Drug Dose 120.5 ml/min Estimated GFR () 101.7 Estimated GFR (Non- 87.7 BUN/Creatinine Ratio 11.6 10-20 Random Glucose 99 70-99 mg/dl Calcium Level 9.1 8.5-10.1 mg/dl Total Bilirubin 2.1 0.2-1 mg/dl Aspartate Amino Transf (AST/SGOT) 16 15-37 U/L Alanine Aminotransferase (ALT/SGPT) 27 12-78 U/L Alkaline Phosphatase 101 45-117 U/L Total Creatine Kinase 50 39-308 U/L C-Reactive Protein < 0.29 0-0.29 mg/dl Total Protein 7.7 6.4-8.2 gm/dl Albumin 4.0 3.4-5.0 gm/dl Globulin 3.7 2.5-4.0 gm/dl Albumin/Globulin Ratio 1.1 0.9-2 Lipase 123 73-393 U/L Procalcitonin 0.08 0-0.5 ng/mL Iron Level 18 35-175 mcg/dl Total Iron Binding Capacity 429 250-450 mcg/dl Transferrin 344 200-360 mg/dl Transferrin % Saturation 4 20-50 % Ferritin 4.6 8.0-388.0 ng/ml Direct Bilirubin 0.3 0-0.2 mg/dl Lactate Dehydrogenase 136 87-241 U/L Anti-Streptolysin O Antibody Screen POS <200 IU IU/ml Anti-Streptolysin O Antibody Titer 800 <200 IU IU/ml Microbiology Results 04/02/16 Urine Culture, Received Pending Impression Assessment and Plan admit #[id number] Advanced Directives Existing Living Will: No Existing Power of Manager Life: No VTE Prophylaxis VTE Risk Assessment Done? Y/N: Yes Risk Level: Low Given or contraindicated: Contraindicated
[2016-04-02 15:47] VITALS: O2SAT 95
[2016-04-02 16:00] VITALS: BP 146/99; PULSE 83; TEMP 36.5; O2SAT 98
--- NOTE | 2016-04-02 16:25 | HISTORY & PHYSICAL EXAMINATION ---
DATE OF ADMISSION: 04/02/2016 CHIEF COMPLAINT: Flank pain and peeing blood. 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 One time he noted it was almost to the point of looking black. He came to the ER on March 18 after it had been going on he noted, probably 2 days or so. He did relate a history of kidney stones so he just figured he probably had a kidney stone, but once the pain and nausea were worse he came to the ER for further evaluation then. At that point in time CT abdomen and pelvis showed several bilateral renal calcifications measuring 2-3 mm, but no obstructing urinary tract calculus. His bladder was midline, bowel pattern nonobstructed, scattered diverticula without diverticulitis. His hemoglobin was about 10, his creatinine was 1.1. His urinalysis was red, cloudy, greater than 30 red cells, 5-10 white cells. It was recommended given that it was not clear why he was having hematuria and flank pain, it was recommended that he stay in the hospital to have more timely evaluation and treatment, but at that point he declined hospital admission, wanted to follow up with his primary and urology as an outpatient and this was arranged. He then followed up with urology in the office. They did a cystoscopy that was clean, not even seeing evidence of hematuria at the time, but then the patient's symptoms continued and worsened and progressed to where he came back to the ER today with again severe pain radiating bilaterally from his back around to his front and groin, constant pain but goes from probably moderate to severe whenever he has to void. No testicular pain. No penile discharge. No fevers, chills, or sweats. He had related chills and sweats to the ER physician, but after I clarify he notes this is really only whenever he is having severe pain and it seems to be more probably related to the pain than to the disease process itself. He had been on antibiotics, the antibiotics have not really helped at all. I believe he was on Bactrim. Cultures have been negative from the . In review of systems, most specifically he denies any rashes. Denies any upper respiratory symptoms or sore throat or even asthma issues through the fall. He relates probably his last upper respiratory infection was in December. No other focal symptoms. No fevers. REVIEW OF SYSTEMS: Otherwise entirely negative except for as above. PAST MEDICAL HISTORY: Includes asthma that sounds to be mild to moderate persistent, PTSD, post-concussive syndrome, nephrolithiasis, post-traumatic intracranial hemorrhage after a 17 foot fall that appeared to be nonsurgical and about 7 years ago what sounded to be septic shock and multiorgan failure related to bilateral pneumonia during which time he coded 4 times was resuscitated, had renal failure and was on dialysis for several weeks even after discharge before having renal recovery. MEDICATIONS: Brio 1 puff daily, Zoloft daily, albuterol p.r.n. shortness of breath or wheeze. ALLERGIES: INCLUDE PENICILLIN. PAST SURGICAL HISTORY: Includes cystoscopy about a week ago that had no significant findings. He has had previous cystoscopy and ureteral stentings for kidney stones, wisdom teeth extraction, tonsillectomy, adenoidectomy, myringotomy, right knee "reconstruction", a left shoulder "reconstruction", left elbow fracture due to trauma, appendectomy, clavicular fracture and while also not surgical with that fall from 17 feet he also had an L4-5 fracture and what sounds to be a sacral, coccygeal or both fracture. SOCIAL HISTORY: No current alcohol. No smoking. He does chew about a can of tobacco a week. 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 He is . ALLERGIES: LISTED PENICILLINS. FAMILY HISTORY: His father had an MS, it sounds like fairly young and then had carotid disease leading to a stroke which appears to be the reason he . His great grandfather had kidney problems, although it is not clear what, his mom notes that it was in the 1950s and she is not sure they really would have known what was going on with his kidneys then. His mom has some sort of anatomic anomaly with her kidneys, whether it is posterior urethral valves or an extra ureter but she notes that she has lot of kidney infections as a kid, but really nothing since and there is a distant history but apparently fairly strong, but second degree relatives and further of lupus on the maternal side. PHYSICAL EXAMINATION: VITAL SIGNS: Temperature 37.1, pulse 99, respiratory rate 18, blood pressure 133/101, pulse ox 99% on room air. GENERAL: He is awake, alert, oriented x3, pleasant, appears to be in a moderate degree of discomfort with very obvious waves of pain that cause him to appear in severe pain related distress, albeit briefly episodically throughout the interview and exam. HEAD, EYES, EARS, NOSE, AND THROAT: Normocephalic, atraumatic. Mucous membranes are moist. CARDIOVASCULAR: Regular without rubs, murmurs, or gallops. LUNGS: Clear to auscultation bilaterally. No rales, rhonchi, or wheezes with good effort. ABDOMEN: Soft, nondistended. He has tenderness pretty much everywhere, but the tenderness he notes really relates back to the fact that pushing just about anywhere causes back and flank pain. He has rather exquisitely bilateral CVA tenderness and maybe mild suprapubic tenderness. EXTREMITIES: Show no cyanosis, clubbing or edema. No calf tenderness. SKIN: Shows no rashes. No pallor or icterus. NEUROLOGIC: Shows cranial nerves II-XII to be grossly intact. Gross motor and sensory are intact. MUSCULOSKELETAL EXAMINATION: Yields no gross lesions, deformities or abnormalities. MENTAL STATE: Shows good recent and remote recall. Normal mood and affect. Good judgment and insight. LABORATORY AND DIAGNOSTICS: His CBC shows a white count of 5.58 with a hemoglobin of 9.8 with an MCV of 64.8, platelets 301. His previous CBC on record from the showed a hemoglobin of 9.9, MCV at the time was 68.3. Complete metabolic panel with sodium 134, potassium 3.6, chloride 100, CO2 25, BUN 13, creatinine 1.1, calcium 9.1, glucose 99. Iron 18, TIBC 429, transferrin 344%, saturation 4, ferritin 4.6, total bili 2.1 with a direct of 0.3, AST 16, ALT 27, alkaline phosphatase 101. LDH 136, CK total 50, CRP less than 0.29, total protein 7.7, albumin 4, lipase 123, procalcitonin 0.08, PTT of 23.8. Urinalysis is red, cloudy, specific gravity 1.020, 2+ protein, 3+ blood, greater than 30 red cells, greater than 30 white cells, 5-10 epithelial cells, mucous present. ASO titer is positive at greater than 800. Renal ultrasound done today shows the right kidney 12.2 cm and left 12.3, no evidence of hydronephrosis, no renal masses, 6 mm echogenic focus within the lower pole of the right kidney suspicious for a calculus, 8 mm echogenic focus mid pole of the left kidney suspicious for a calculus, bladder not well distended, neither ureteral jet visualized. CT abdomen and pelvis done on the and as described earlier showed several bilateral nonobstructing renal calcifications. No evidence for an obstructing urinary tract calculus, nonobstructive bowel pattern, prior appendectomy, scattered diverticuli but no evidence for diverticulitis. ASSESSMENT AND PLAN: 1. Hematuria and flank pain. 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 Fortunately, he has preserved and stable renal function given his creatinine is 1.1 and was 1.1 two weeks ago. Does not appear likely that he is going to have any acute deterioration in his GFR. With the ASO titer being elevated post-strep glomerulonephritis is possible. Certainly with his age, preserved kidney function and IgA nephropathy is possible. Complement levels are pending and with his somewhat distant but fairly strong family history of lupus, lupus nephritis is also possible, although I would probably expect worse kidney function with that, but an RANOLDO screening is pending. Will for now admit him to med/surg, continue to follow his kidney function, check a strep culture, although he has been given a gram of Rocephin already and he had been on Bactrim already so this may be negative anyway and research further the significance of the ASO. Manage pain with Tylenol, Percocet, or Dilaudid p.r.n. mild, moderate and severe pain respectively and keep him hydrated with maintenance fluids until it is clear that he is eating and drinking well enough to keep up. At some point here we may need to consider a renal biopsy. I discussed this with him, but first certainly will need to follow up on the above noted studies and again probably will need to have a nephrology consult, but given that he has got no deterioration of renal function we will follow closely first. Given his mildly elevated total bilirubin and anemia it is far less likely this is hemolytic process in disguise particularly given that he has got red cells on his urine, not just dipstick blood, but will keep that in mind. 2. Microcytic anemia. He definitely appears to be iron deficient, will need to replace this. Given his extremely small MCV as well as history of a rather surprising amount of comorbidities for what appears to be an otherwise healthy 31-year-old male will send a hemoglobin electrophoresis and follow his CBC. Fortunately, it does not appear he will need transfused and his hemoglobin is fairly stable from previous. Given that this is iron deficiency if no other etiology is unearthed certain for completeness sake he will need a colonoscopy at some point in the future. 3. Elevated bilirubin, see above. It may not be anything given that it is only 2, but will follow his hemoglobin. His LDH was normal. I doubt we have a hemolytic process going on, but will need to follow. 4. Mild hyponatremia. Follow up. 5. Asthma. Continue his Breo and albuterol p.r.n. 6. Pyuria, the white cells in his urine almost certainly relate to the more than likely nephrotic process at play. Given his CRP and procalcitonin values as well as the fact that he has been treated with antibiotics with no improvement in his symptoms, I doubt this is an atypical presentation of a pyelonephritis. 7. Nephrolithiasis. These appear to be silently present in his situation rather than active contributor. Obviously, we will need to continue to follow him clinically. 8. Deep venous thrombosis prophylaxis. Ambulation. Overall, he appears to be low risk and beyond that pharmacologic prophylaxis would be obviously contraindicated given his hematuria. 9. Elevated blood pressures. They have been up and down, as high as 162 systolic and 101 diastolic, although at separate times, but as low as 136/83. Given the episodic nature of it it is more likely related to pain then the nephrotic syndrome but obviously will need to continue to follow. 10. Posttraumatic stress disorder. Continue his Zoloft.
[2016-04-02 17:20] VITALS: BP 159/73; PULSE 79; O2SAT 98
[2016-04-02 17:40] LABS: MANUAL MICROSCOPIC REQUIRED? NO; REVIEW REQ? NO; URINE APPEARANCE TURBID (CLEAR); URINE BILIRUBIN NEG (NEG); URINE COLOR RED; URINE NITRITE POS (NEG); URINE SPECIFIC GRAVITY 1.014 (1.000-1.030); UROBILINOGEN NEG (NEG)
[2016-04-02] MEDS: HYDROmorphone INJ 0.5 MG/0.5 ML SYR IV PRN ×2 (20:01→23:55)
[2016-04-02] MEDS: OXYCODONE/ACETAMINOPHEN 5-325 TAB PO PRN (21:05)
[2016-04-02 23:30] VITALS: BP 156/91; PULSE 88; TEMP 36.8; O2SAT 96
[2016-04-03] MEDS: OXYCODONE/ACETAMINOPHEN 5-325 TAB PO PRN ×4 (02:11→23:24)
[2016-04-03] MEDS: HYDROmorphone INJ 0.5 MG/0.5 ML SYR IV PRN ×2 (05:08→10:47)
[2016-04-03 06:41] LABS: HEMATOCRIT 29.1 % (42-52); MEAN CELL VOLUME 66.9 fL (80-100); MEAN CORPUSCULAR HEMOGLOBIN 19.3 pg (25-34); MEAN CORPUSCULAR HGB CONC 28.9 g/dl (32-36); MEAN PLATELET VOLUME 8.8 fL (7.4-10.4); PLATELET COUNT 233 K/uL (130-400); RED BLOOD COUNT 4.35 M/uL (4.7-6.1); WHITE BLOOD COUNT 4.77 K/uL (4.8-10.8)
[2016-04-03 07:00] LABS: BUN/CREATININE RATIO 8.6 (10-20); CALCIUM 8.6 mg/dl (8.5-10.1); CREATININE 1.2 mg/dl (0.60-1.40)
[2016-04-03 07:01] LABS: BASO % 0.8 %; BASO ABS # 0.04 K/uL (0-0.2); COMPLETE YES; IG% 0.4 %; LYMPH % 44.9 %; LYMPH ABS # 2.14 K/uL (1.2-3.4); MICROCYTOSIS PRESENT; MONO % 7.5 %; NEUT % 41.4 %; OVALOCYTES 1+; POLYCHROMASIA 1+
[2016-04-03 07:09] VITALS: BP 116/74; PULSE 77; TEMP 36.6; O2SAT 99
[2016-04-03] MEDS: SERTRALINE HCL 100 MG TAB PO SCH (07:31)
--- NOTE | 2016-04-03 07:47 | Progress Note ---
Subjective Date of Service: Apr 03, 2016. Subjective this pt is with some persistent flank pain, also persistent hematuria Problem List Medical Problems: (1) Anemia Status: Acute (2) Anemia Status: Acute (3) Bilateral flank pain Status: Acute (4) Flank pain Status: Acute (5) Hematuria Status: Acute (6) Hematuria Status: Acute Review of Systems Constitutional: + weakness, No chills, No fever Respiratory: No cough, No shortness of breath Cardiac: No chest pain, No edema Abdomen: + pain, No diarrhea, No nausea, No vomiting Male : + hematuria, No dysuria Objective Vital Signs Date Time Temp Pulse Resp B/P Pulse Ox O2 Delivery O2 Flow Rate FiO2 04/03/16 07:09 36.6 77 19 116/74 99 Room Air 04/02/16 23:50 Room Air 04/02/16 23:30 36.8 88 18 156/91 96 Room Air 04/02/16 16:50 Room Air 04/02/16 16:00 36.5 83 18 146/99 98 Room Air 04/02/16 15:47 88 18 138/91 95 Room Air 04/02/16 14:54 83 18 162/98 96 Room Air 04/02/16 14:00 98 Room Air 04/02/16 13:30 85 18 135/95 98 Room Air 04/02/16 11:18 87 18 136/83 96 Room Air 04/02/16 10:19 37.1 99 18 133/101 99 Room Air Physical Exam General Appearance: WD/WN, + mild distress Neck: supple, no JVD Respiratory/Chest: chest non-tender, lungs clear, normal breath sounds Cardiovascular: regular rate, rhythm, no murmur Abdomen: normal bowel sounds, soft, + tenderness (cva b/l L>R) Extremities: no pedal edema, no calf tenderness Neurologic/Psychiatric: alert, oriented x 3 Laboratory Results Last 24 Hours Test 04/02/16 10:30 04/02/16 10:40 04/02/16 14:12 04/02/16 17:23 Urine Color RED RED Urine Appearance CLOUDY TURBID Urine pH 6.5 6.0 Urine Specific [place] 1.020 1.014 Urine Protein 2+ 1+ Urine Glucose (UA) NEG NEG Urine Ketones NEG NEG Urine Occult Blood 3+ 3+ Urine Nitrite NEG POS Urine Bilirubin NEG NEG Urine Urobilinogen NEG NEG Urine Leukocyte Esterase NEG SMALL Urine RBC >30 /hpf Urine WBC >30 /hpf Urine Epithelial Cells 5-10 /lpf Urine Bacteria NEG Urine Mucus PRESENT White Blood Count 5.58 K/uL Red Blood Count 5.05 M/uL Hemoglobin 9.8 g/dL Hematocrit 32.7 % Mean Corpuscular Volume 64.8 fL Mean Corpuscular Hemoglobin 19.4 pg Mean Corpuscular Hemoglobin Concent 30.0 g/dl Platelet Count 301 K/uL Mean Platelet Volume 9.2 fL Neutrophils (%) (Auto) 58.7 % Lymphocytes (%) (Auto) 28.9 % Monocytes (%) (Auto) 9.0 % Eosinophils (%) (Auto) 2.2 % Basophils (%) (Auto) 0.7 % Neutrophils # (Auto) 3.28 K/uL Lymphocytes # (Auto) 1.61 K/uL Monocytes # (Auto) 0.50 K/uL Eosinophils # (Auto) 0.12 K/uL Basophils # (Auto) 0.04 K/uL RDW Standard Deviation 38.5 fL RDW Coefficient of Variation 16.5 % Immature Granulocyte % (Auto) 0.5 % Immature Granulocyte # (Auto) 0.03 K/uL Microcytosis PRESENT Ovalocytes 1+ Erythrocyte Sedimentation Rate 4 mm/hr Absolute Reticulocyte Count 0.09 10^6/uL Percent Reticulocyte Count 1.7 % Activated Partial Thromboplast Time 23.8 SECONDS Partial Thromboplastin Ratio 0.9 Sodium Level 134 mmol/L Potassium Level 3.6 mmol/L Chloride Level 100 mmol/L Carbon Dioxide Level 25 mmol/L Anion Gap 9.0 mmol/L Blood Urea Nitrogen 13 mg/dl Creatinine 1.10 mg/dl Est Creatinine Clear Calc Drug Dose 120.5 ml/min Estimated GFR () 101.7 Estimated GFR (Non- 87.7 BUN/Creatinine Ratio 11.6 Random Glucose 99 mg/dl Calcium Level 9.1 mg/dl Total Bilirubin 2.1 mg/dl Aspartate Amino Transf (AST/SGOT) 16 U/L Alanine Aminotransferase (ALT/SGPT) 27 U/L Alkaline Phosphatase 101 U/L Total Creatine Kinase 50 U/L C-Reactive Protein < 0.29 mg/dl Total Protein 7.7 gm/dl Albumin 4.0 gm/dl Globulin 3.7 gm/dl Albumin/Globulin Ratio 1.1 Lipase 123 U/L 25-Hydroxy Vitamin D Total 9.9 ng/ml Procalcitonin 0.08 ng/mL Iron Level 18 mcg/dl Total Iron Binding Capacity 429 mcg/dl Transferrin 344 mg/dl Transferrin % Saturation 4 % Ferritin 4.6 ng/ml Direct Bilirubin 0.3 mg/dl Lactate Dehydrogenase 136 U/L Anti-Streptolysin O Antibody Screen POS IU/ml Anti-Streptolysin O Antibody Titer 800 IU/ml Urine WBC (Auto) 5-10 /hpf Urine RBC (Auto) >30 /hpf Urine Hyaline Casts (Auto) 0 /lpf Urine Epithelial Cells (Auto) 5-10 /lpf Urine Bacteria (Auto) NEG Test 04/03/16 06:10 White Blood Count 4.77 K/uL Red Blood Count 4.35 M/uL Hemoglobin 8.4 g/dL Hematocrit 29.1 % Mean Corpuscular Volume 66.9 fL Mean Corpuscular Hemoglobin 19.3 pg Mean Corpuscular Hemoglobin Concent 28.9 g/dl Platelet Count 233 K/uL Mean Platelet Volume 8.8 fL Neutrophils (%) (Auto) 41.4 % Lymphocytes (%) (Auto) 44.9 % Monocytes (%) (Auto) 7.5 % Eosinophils (%) (Auto) 5.0 % Basophils (%) (Auto) 0.8 % Neutrophils # (Auto) 1.97 K/uL Lymphocytes # (Auto) 2.14 K/uL Monocytes # (Auto) 0.36 K/uL Eosinophils # (Auto) 0.24 K/uL Basophils # (Auto) 0.04 K/uL RDW Standard Deviation 40.5 fL RDW Coefficient of Variation 16.4 % Immature Granulocyte % (Auto) 0.4 % Immature Granulocyte # (Auto) 0.02 K/uL Polychromasia 1+ Microcytosis PRESENT Ovalocytes 1+ Sodium Level 140 mmol/L Potassium Level 4.0 mmol/L Chloride Level 103 mmol/L Carbon Dioxide Level 27 mmol/L Anion Gap 10.0 mmol/L Blood Urea Nitrogen 10 mg/dl Creatinine 1.20 mg/dl Est Creatinine Clear Calc Drug Dose 110.4 ml/min Estimated GFR () 91.5 Estimated GFR (Non- 79.0 BUN/Creatinine Ratio 8.6 Random Glucose 86 mg/dl Calcium Level 8.6 mg/dl Assessment and Plan 31 M presentes with b/l flank pain and gross hematuria for 2 weeks with an outpt cystoscopy by urology that was unrevealing for source and imaging that does not suggest significant stone disease( there are kidney stones present but non obstructing). Has continue to drop hgb, on urine analysis not an "active sediment" but does have only some epi casts and gross blood. Serologically no elevated esr, mild elevated bili, mostly indirect but with normal LDH After discussion with urology they do not feel gross hematuria from renal stones , nephrology does not feel fits with nephritis, will pursue IVP to eval for AVM , supportive are with parenteral opiate pain control I personally reviewed labs and CT scan 04/03 as well has had conversations with Dr Barker from nephrology and Dr Feng from urology for approxamately 30 minutes
--- NOTE | 2016-04-03 11:57 | Urology Consultation ---
History General Date of Service: Apr 03, 2016. Primary Care Physician: Michael Lee D.O. Pt seen a urologist before?: Yes If yes, why?: hematuria; kidney stones History of Present Illness 31y/o male w/ hematuria and b/l flank pain for the past several months - pain begins in the costovertebral area and wraps around his flanks to the groin b/l - similar level of pain on both sides - full hematuria w/u (CT, cysto, cytology, culture) completed in the office without identification of any structural/surgically correctable issues - he does have b/l stones, however, these are small and non-obstructing - he was treated empirically with bactrim after his w/u last week - this did not affect his symptoms at all - he is afebrile - no leukocytosis - he is anemic - which seems to be somewhat chronic - denies any aberrant bowel function or other symptomatology -he has an interesting overall hx related to a fall from height several years ago - subsequent renal failure (rhabdo?) with need for HD Vital Signs Past 12 Hours Date Time Temp Pulse Resp B/P Pulse Ox O2 Delivery O2 Flow Rate FiO2 04/03/16 07:40 Room Air 04/03/16 07:09 36.6 77 19 116/74 99 Room Air 04/03/16 06:10 Red Blood Count 4.35, Mean Corpuscular Volume 66.9, Mean Corpuscular Hemoglobin 19.3, Mean Corpuscular Hemoglobin Concent 28.9, Mean Platelet Volume 8.8, Neutrophils (%) (Auto) 41.4, Lymphocytes (%) (Auto) 44.9, Monocytes (%) (Auto) 7.5, Eosinophils (%) (Auto) 5.0, Basophils (%) (Auto) 0.8, Neutrophils # (Auto) 1.97, Lymphocytes # (Auto) 2.14, Monocytes # (Auto) 0.36, Eosinophils # (Auto) 0.24, Basophils # (Auto) 0.04 04/03/16 06:10 Test 04/02/16 14:12 04/02/16 17:23 04/03/16 06:10 Iron Level 18 mcg/dl (35-175) Total Iron Binding Capacity 429 mcg/dl (250-450) Transferrin 344 mg/dl (200-360) Transferrin % Saturation 4 % (20-50) Ferritin 4.6 ng/ml (8.0-388.0) Direct Bilirubin 0.3 mg/dl (0-0.2) Lactate Dehydrogenase 136 U/L (87-241) Anti-Streptolysin O Antibody Screen POS IU/ml (<200 IU) Anti-Streptolysin O Antibody Titer 800 IU/ml (<200 IU) Urine Color RED Urine Appearance TURBID (CLEAR) Urine pH 6.0 (4.5-7.5) Urine Specific [place] 1.014 (1.000-1.030) Urine Protein 1+ (NEG) Urine Glucose (UA) NEG (NEG) Urine Ketones NEG (NEG) Urine Occult Blood 3+ (NEG) Urine Nitrite POS (NEG) Urine Bilirubin NEG (NEG) Urine Urobilinogen NEG (NEG) Urine Leukocyte Esterase SMALL (NEG) Urine WBC (Auto) 5-10 /hpf (0-5) Urine RBC (Auto) >30 /hpf (0-4) Urine Hyaline Casts (Auto) 0 /lpf (0-5) Urine Epithelial Cells (Auto) 5-10 /lpf (0-5) Urine Bacteria (Auto) NEG (NEG) White Blood Count 4.77 K/uL (4.8-10.8) Red Blood Count 4.35 M/uL (4.7-6.1) Hemoglobin 8.4 g/dL (14.0-18.0) Hematocrit 29.1 % (42-52) Mean Corpuscular Volume 66.9 fL (80-100) Mean Corpuscular Hemoglobin 19.3 pg (25-34) Mean Corpuscular Hemoglobin Concent 28.9 g/dl (32-36) Platelet Count 233 K/uL (130-400) Mean Platelet Volume 8.8 fL (7.4-10.4) Neutrophils (%) (Auto) 41.4 % Lymphocytes (%) (Auto) 44.9 % Monocytes (%) (Auto) 7.5 % Eosinophils (%) (Auto) 5.0 % Basophils (%) (Auto) 0.8 % Neutrophils # (Auto) 1.97 K/uL (1.4-6.5) Lymphocytes # (Auto) 2.14 K/uL (1.2-3.4) Monocytes # (Auto) 0.36 K/uL (0.11-0.59) Eosinophils # (Auto) 0.24 K/uL (0-0.5) Basophils # (Auto) 0.04 K/uL (0-0.2) RDW Standard Deviation 40.5 fL (36.4-46.3) RDW Coefficient of Variation 16.4 % (11.5-14.5) Immature Granulocyte % (Auto) 0.4 % Immature Granulocyte # (Auto) 0.02 K/uL (0.00-0.02) Polychromasia 1+ Microcytosis PRESENT Ovalocytes 1+ Anion Gap 10.0 mmol/L (3-11) Est Creatinine Clear Calc Drug Dose 110.4 ml/min Estimated GFR () 91.5 Estimated GFR (Non- 79.0 BUN/Creatinine Ratio 8.6 (10-20) Calcium Level 8.6 mg/dl (8.5-10.1) Laboratory Labs were reviewed and are within normal limits unless listed below. Labs are available in the chart and at [facility] Problem List Medical Problems: (1) Anemia Status: Acute (2) Anemia Status: Acute (3) Bilateral flank pain Status: Acute (4) Flank pain Status: Acute (5) Hematuria Status: Acute (6) Hematuria Status: Acute Past History asthma, dialysis (previously - but no longer ), kidney stones, other (PTSD) Past Surgical History: orthopedic surgery, other (severe trauma necessitating surgical correction of several associated issues) Family History Diabetes mellitus FH: heart disease FHx: lung disease Hypertension Kidney disease Kidney stones Social History Smoking: no current use Marital status: single Occupation status: unemployed Allergies Coded Allergies: Penicillins (Unverified Allergy, Intermediate, ITCHY BLOTCHES, 04/02/16) Medications Home Medications: Home Meds and Scripts Medications Dose Route/Sig Max Daily Dose Days Date Category Tylenol (Acetaminophen) 325 Mg Tab 650 Mg PO DAILY PRN 04/02/16 Reported Proventil 0.083% 2.5MG/3ML (Albuterol Sulf) 2.5 Mg/3 Ml Nebu 2.5 Mg INH QID 03/18/16 Reported Ventolin Hfa (Albuterol) 200 Puffs/68226 Mcg Aers 2-4 Puffs INH BID 03/18/16 Reported Breo Ellipta (Fluticasone Furoate-Vilanterol) 1 Inh Inh 2 Puffs INH BID 03/18/16 Reported Zoloft (Sertraline HCl) 100 Mg Tab 100 Mg PO DAILY 03/18/16 Reported Inpatient Medications: Current Inpatient Medications Medications (Trade) Dose Ordered Sig/Reena Route Start Time Stop Time Status Last Admin Dose Admin Acetaminophen (Tylenol Tab) 650 mg Q4H PRN PO 04/02/16 13:45 05/02/16 13:44 Al Hydrox/Mg Hydrox/Simethicone (Maalox Max Susp) 15 ml Q4H PRN PO 04/02/16 13:45 05/02/16 13:44 Magnesium Hydroxide (Milk Of Magnesia Susp) 30 ml Q6H PRN PO 04/02/16 13:45 05/02/16 13:44 Polyethylene (Miralax Powder Packet) 17 gm DAILY PRN PO 04/02/16 13:45 05/02/16 13:44 Ondansetron HCl (Zofran Inj) 4 mg Q6H PRN IV 04/02/16 13:45 05/02/16 13:44 Oxycodone/ Acetaminophen (Percocet 5-325mg Tab) 1 tab Q4H PRN PO 04/02/16 15:15 04/16/16 15:14 04/03/16 07:32 1 TAB Hydromorphone HCl (Dilaudid Inj) 0.5 mg Q4 PRN IV 04/02/16 15:15 04/16/16 15:14 04/03/16 10:47 0.5 MG Albuterol (Ventolin Hfa Inhaler) 1 puffs Q4 PRN INH 04/02/16 15:15 05/02/16 15:14 Sertraline HCl (Zoloft Tab) 100 mg DAILY PO 04/03/16 09:00 05/03/16 08:59 04/03/16 07:31 100 MG Miscellaneous Information (Order Awaiting Action) 1 ea QS N/A 04/02/16 16:00 05/02/16 15:59 Review of Systems Review of Systems Constitutional: No chills, No fever, No frequent headaches, No problem reported , No see HPI, No weight loss Eyes: No blurred vision, No double vision, No eye pain, No loss of night vision , No problem reported, No see HPI Neurological: No dizzy, No numbness/tingling, No passing out, No problem reported, No see HPI, No seizures Endocrine: No excessive thirst, No problem reported, No see HPI, No tired/ sluggish, No too cold, No too hot Gastrointestinal: + abdominal pain, No constipation, No diarrhea Cardiovascular: No angina, No chest pain, No heart murmur, No irregular heartbeat, No palpitations, No problem reported, No see HPI, No swelling ankles/ feet Respiratory: No chronic cough, No coughing up blood, No problem reported, No see HPI, No shortness of breath, No wheezing Skin: No boils, No dry skin, No problem reported, No rash, No see HPI Musculoskeletal: No arthritis, No back pain, No joint pain, No neck pain, No problem reported, No see HPI Blood / Lymphatic: No bleed easily, No bruise easily, No problem reported, No see HPI, No swollen glands Ears / Nose / Throat: No hearing loss, No hoarse voice, No problem reported, No see HPI, No sinus, No sore throat Male : + blood in urine, + kidney stones, + problem reported All Other Systems: Reviewed and Negative Physical Exam Vital Signs: Vital Signs Past 12 Hours Date Time Temp Pulse Resp B/P Pulse Ox O2 Delivery O2 Flow Rate FiO2 04/03/16 07:40 Room Air 04/03/16 07:09 36.6 77 19 116/74 99 Room Air 04/02/16 23:50 Room Air Physical Exam: General Appearance: WD/WN, no apparent distress Eyes: bilateral eyes normal inspection ENT: hearing grossly normal Neck: no adenopathy Respiratory/Chest: no respiratory distress, no accessory muscle use Cardiovascular: regular rate, rhythm, no edema Gastrointestinal: Bladder: normal bladder (tender to palpation) Renal: cva tenderness (tender with even light palpation over the skin b/l) Extremities: no pedal edema, no calf tenderness Neurologic/Psychiatric: alert, normal mood/affect, oriented x 3 Skin: normal color, warm/dry Lymphatic: no adenopathy Assessment & Plan Assessment & Plan Hematuria; flank pain - he has recently had a complete w/u that has been unremarkable except for some b/l kidney stones (small in size and non-obstructing) - based on their appearance, I think it is very unlikely that these stones are causal for his symptoms - from a urologic standpoint - there are no particular surgical interventions that seem to be necessary or appropriate - he has had some proteinuria on UA and has some chronic anemia; with his hx of HD and prior renal dysfunction, I wonder if there is an intrinsic renal cause, however, his initial labs are not overwhelming for a major nephropathy - recommend pain control now, uncertain there is more to offer from an interventional standpoint at present
[2016-04-03] MEDS ORDERED: ACETAMINOPHEN 500 MG TAB PO PRN (13:15)
[2016-04-03] MEDS: OXYCODONE HCL IR 5 MG TAB (IMMEDIATE RELEASE) PO PRN (13:24)
[2016-04-03 13:31] LABS: URINE BILIRUBIN NEG (NEG); URINE NITRITE NEG (NEG); URINE PH 5.5 (4.5-7.5); URINE SPECIFIC GRAVITY 1.015 (1.000-1.030); UROBILINOGEN NEG (NEG)
[2016-04-03 13:32] LABS: MANUAL MICROSCOPIC REQUIRED? NO; REVIEW REQ? YES; URINE APPEARANCE CLOUDY (CLEAR); URINE COLOR RED
[2016-04-03 13:40] LABS: URINE PROTIEN/CREAT RATIO 0.5 (0-0.2); URINE TOTAL PROTEIN 84.7 mg/dl (0-11.9)
[2016-04-03] MEDS: SODIUM CHLORIDE 0.9% 1000ML 1,000 ML IV SCH ×2 (13:53→22:01)
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
[2016-04-03 14:52] VITALS: BP 134/79; PULSE 85; TEMP 36.8; O2SAT 97
[2016-04-03] MEDS: HYDROmorphone INJ 1 MG/ML SYR IV PRN ×2 (16:08→20:05)
[2016-04-03 22:52] VITALS: BP 153/98; PULSE 79; TEMP 36.6; O2SAT 96
[2016-04-04] MEDS: HYDROmorphone INJ 1 MG/ML SYR IV PRN ×4 (01:41→19:28)
[2016-04-04 03:00] LABS: URINE APPEARANCE CLEAR (CLEAR); URINE BILIRUBIN NEG (NEG); URINE COLOR RED; URINE EPITHELIAL CELL AUTO 0-5 /lpf (0-5); URINE NITRITE NEG (NEG); URINE SPECIFIC GRAVITY 1.004 (1.000-1.030); UROBILINOGEN NEG (NEG)
[2016-04-04 03:02] LABS: MANUAL MICROSCOPIC REQUIRED? NO; REVIEW REQ? NO
[2016-04-04 03:12] LABS: URINE PROTIEN/CREAT RATIO 2.1 (0-0.2); URINE TOTAL PROTEIN 69.9 mg/dl (0-11.9)
[2016-04-04] MEDS: SODIUM CHLORIDE 0.9% 1000ML 1,000 ML IV SCH ×3 (05:17→21:05)
[2016-04-04] MEDS: OXYCODONE HCL IR 5 MG TAB (IMMEDIATE RELEASE) PO PRN ×2 (05:25→23:35)
[2016-04-04 07:08] LABS: HEMATOCRIT 29.3 % (42-52); MEAN CELL VOLUME 67.5 fL (80-100); MEAN CORPUSCULAR HEMOGLOBIN 19.1 pg (25-34); MEAN CORPUSCULAR HGB CONC 28.3 g/dl (32-36); MEAN PLATELET VOLUME 9.1 fL (7.4-10.4); PLATELET COUNT 232 K/uL (130-400); RED BLOOD COUNT 4.34 M/uL (4.7-6.1); WHITE BLOOD COUNT 4.36 K/uL (4.8-10.8)
[2016-04-04 07:09] VITALS: BP 118/67; PULSE 80; TEMP 36.3; O2SAT 94
[2016-04-04 07:17] LABS: CREATININE 1.1 mg/dl (0.60-1.40)
[2016-04-04 07:18] LABS: BUN/CREATININE RATIO 9.8 (10-20); CALCIUM 8.3 mg/dl (8.5-10.1); POTASSIUM 4.4 mmol/L (3.5-5.1)
[2016-04-04 07:20] LABS: ALB/GLOB RATIO 1.2 (0.9-2)
[2016-04-04] MEDS: SERTRALINE HCL 100 MG TAB PO SCH (07:48)
--- NOTE | 2016-04-04 08:33 | Progress Note ---
Subjective Date of Service: Apr 04, 2016. Subjective Pt evaluation today including: conversation w/ patient, chart review, lab review Voiding: no voiding problems 31 yo male with bilateral back and flank pain and gross hematuria. Pt continues to c/o pain 9/10 this morning in addition to gross hematuria. He also c/o some dysuria today. Cr remains normal. IVP pending this morning. Problem List Medical Problems: (1) Anemia Status: Acute (2) Anemia Status: Acute (3) Bilateral flank pain Status: Acute (4) Flank pain Status: Acute (5) Hematuria Status: Acute (6) Hematuria Status: Acute Review of Systems Constitutional: No chills, No fever Respiratory: No shortness of breath Cardiac: No chest pain Abdomen: + pain (suprapubic and groin pain ), No nausea, No vomiting Male : + dysuria, + hematuria Heme: + abnormal bleeding/bruising Objective Vital Signs Date Time Temp Pulse Resp B/P Pulse Ox O2 Delivery O2 Flow Rate FiO2 04/04/16 07:09 36.3 80 16 118/67 94 Room Air 04/03/16 23:27 Room Air 04/03/16 22:52 36.6 79 17 153/98 96 Room Air 04/03/16 19:59 Room Air 04/03/16 14:52 36.8 85 16 134/79 97 Room Air Physical Exam General Appearance: no apparent distress Eyes: normal inspection ENT: hearing grossly normal Neck: no JVD Respiratory/Chest: no respiratory distress, no accessory muscle use Cardiovascular: no JVD Extremities: normal inspection Neurologic/Psychiatric: alert, normal mood/affect, oriented x 3 Skin: normal color Comments: + bilateral CVA tenderness on exam today Laboratory Results Last 24 Hours Test 04/04/16 00:15 04/04/16 06:15 Urine Color RED Urine Appearance CLEAR Urine pH 6.0 Urine Specific [place] 1.004 Urine Protein 2+ Urine Glucose (UA) NEG Urine Ketones NEG Urine Occult Blood 3+ Urine Nitrite NEG Urine Bilirubin NEG Urine Urobilinogen NEG Urine Leukocyte Esterase TRACE Urine WBC (Auto) 1-5 /hpf Urine RBC (Auto) >30 /hpf Urine Hyaline Casts (Auto) 0 /lpf Urine Epithelial Cells (Auto) 0-5 /lpf Urine Bacteria (Auto) NEG Urine Random Creatinine 33.0 mg/dl Urine Random Total Protein 69.9 mg/dl Urine Protein/Creatinine Ratio 2.1 White Blood Count 4.36 K/uL Red Blood Count 4.34 M/uL Hemoglobin 8.3 g/dL Hematocrit 29.3 % Mean Corpuscular Volume 67.5 fL Mean Corpuscular Hemoglobin 19.1 pg Mean Corpuscular Hemoglobin Concent 28.3 g/dl RDW Standard Deviation 40.5 fL RDW Coefficient of Variation 16.4 % Platelet Count 232 K/uL Mean Platelet Volume 9.1 fL Sodium Level 139 mmol/L Potassium Level 4.4 mmol/L Chloride Level 105 mmol/L Carbon Dioxide Level 27 mmol/L Anion Gap 7.0 mmol/L Blood Urea Nitrogen 11 mg/dl Creatinine 1.10 mg/dl Est Creatinine Clear Calc Drug Dose 120.4 ml/min Estimated GFR () 101.7 Estimated GFR (Non- 87.7 BUN/Creatinine Ratio 9.8 Random Glucose 88 mg/dl Calcium Level 8.3 mg/dl Total Bilirubin 1.7 mg/dl Aspartate Amino Transf (AST/SGOT) 13 U/L Alanine Aminotransferase (ALT/SGPT) 25 U/L Alkaline Phosphatase 74 U/L Total Protein 6.5 gm/dl Albumin 3.5 gm/dl Globulin 3.0 gm/dl Albumin/Globulin Ratio 1.2 Assessment and Plan A/P: Bilateral low back and flank pain, gross hematuria, nephrolithiasis AFVSS. Pt with persistent pain this morning. + bilateral CVA tenderness. Etiology remains unclear. UC&S reincubating at this time. IVP pending. If ureteral stone or obstruction found on IVP, consider stent placement for pain. Otherwise, consider other etiology for pt's pain. Could consider repeating a cath UC&S. Would check for fungal UTI as well. Appreciate nephrology input. ? referral for renal bx. Will continue to follow along with primary service at this time.
--- NOTE | 2016-04-04 10:17 | Nephrology Progress Note ---
Nephrology Progress Note Date of Service Apr 04, 2016. Chief Complaint Hematuria, flank pain Subjective Mr. To was seen and examined in his hospital room with his mother at the bedside. Tip was sleeping initially. His mother reports a family history in her family of neurologic and kidney disease which only affects the men. She describes hematuria associated with the condition but no renal failure. Her brother suffers from chronic pain and ambulatory dysfunction related to the condition. Tip continues to experience intermittent pain. He describes excrutiating pain when he voids his urine. The symptoms prevent him from doing much walking. The pain feels like a knife tearing up his kidneys. He voided bright red blood this morning at 4AM. Review of Systems A complete review of systems was performed. Pertinent positives are noted above. All other systems are negative. Vital Signs Last 8 Hrs Date Time Temp Pulse Resp B/P Pulse Ox O2 Delivery O2 Flow Rate FiO2 04/04/16 07:40 Room Air 04/04/16 07:09 36.3 80 16 118/67 94 Room Air I & O 24-Hour Column 04/04/16 08:00 Intake Total 2204 ml Output Total 700 ml Balance 1504 ml Last Recorded Weight Weight (Kilograms): 103.000 Physical Exam General Appearance: WD/WN, no apparent distress Head: normocephalic, atraumatic Eyes: normal inspection, sclerae normal ENT: normal ENT inspection, pharynx normal Neck: supple, no JVD Respiratory/Chest: lungs clear, no respiratory distress, no accessory muscle use Cardiovascular: regular rate, rhythm, no murmur Back: no muscle spasm, + left CVA tenderness, + right CVA tenderness Abdomen/GI: non tender, soft Extremities/Musculoskelatal: normal inspection, no pedal edema Neurologic/Psych: alert, oriented x 3 Family History Diabetes mellitus FH: heart disease FHx: lung disease Hypertension Kidney disease Kidney stones Negative for CKD / ESRD Social History Marital Status: single Occupation: unemployed . No children. Denies tobacco or alcohol use Laboratory Results Past 24 Hours 04/04/16 06:15 04/04/16 06:15 Test 04/04/16 00:15 04/04/16 06:15 Urine Color RED Urine Appearance CLEAR (CLEAR) Urine pH 6.0 (4.5-7.5) Urine Specific [place] 1.004 (1.000-1.030) Urine Protein 2+ (NEG) Urine Glucose (UA) NEG (NEG) Urine Ketones NEG (NEG) Urine Occult Blood 3+ (NEG) Urine Nitrite NEG (NEG) Urine Bilirubin NEG (NEG) Urine Urobilinogen NEG (NEG) Urine Leukocyte Esterase TRACE (NEG) Urine WBC (Auto) 1-5 /hpf (0-5) Urine RBC (Auto) >30 /hpf (0-4) Urine Hyaline Casts (Auto) 0 /lpf (0-5) Urine Epithelial Cells (Auto) 0-5 /lpf (0-5) Urine Bacteria (Auto) NEG (NEG) Urine Random Creatinine 33.0 mg/dl Urine Random Total Protein 69.9 mg/dl (0-11.9) Urine Protein/Creatinine Ratio 2.1 (0-0.2) Red Blood Count 4.34 M/uL (4.7-6.1) Mean Corpuscular Volume 67.5 fL (80-100) Mean Corpuscular Hemoglobin 19.1 pg (25-34) Mean Corpuscular Hemoglobin Concent 28.3 g/dl (32-36) RDW Standard Deviation 40.5 fL (36.4-46.3) RDW Coefficient of Variation 16.4 % (11.5-14.5) Mean Platelet Volume 9.1 fL (7.4-10.4) Anion Gap 7.0 mmol/L (3-11) Est Creatinine Clear Calc Drug Dose 120.4 ml/min Estimated GFR () 101.7 Estimated GFR (Non- 87.7 BUN/Creatinine Ratio 9.8 (10-20) Calcium Level 8.3 mg/dl (8.5-10.1) Total Bilirubin 1.7 mg/dl (0.2-1) Aspartate Amino Transf (AST/SGOT) 13 U/L (15-37) Alanine Aminotransferase (ALT/SGPT) 25 U/L (12-78) Alkaline Phosphatase 74 U/L (45-117) Total Protein 6.5 gm/dl (6.4-8.2) Albumin 3.5 gm/dl (3.4-5.0) Globulin 3.0 gm/dl (2.5-4.0) Albumin/Globulin Ratio 1.2 (0.9-2) Allergies Coded Allergies: Penicillins (Unverified Allergy, Intermediate, ITCHY BLOTCHES, 04/02/16) Medications Current Inpatient Medications Medications (Trade) Dose Ordered Sig/Reena Route Start Time Stop Time Status Last Admin Dose Admin Al Hydrox/Mg Hydrox/Simethicone (Maalox Max Susp) 15 ml Q4H PRN PO 04/02/16 13:45 05/02/16 13:44 Magnesium Hydroxide (Milk Of Magnesia Susp) 30 ml Q6H PRN PO 04/02/16 13:45 05/02/16 13:44 Polyethylene (Miralax Powder Packet) 17 gm DAILY PRN PO 04/02/16 13:45 05/02/16 13:44 Ondansetron HCl (Zofran Inj) 4 mg Q6H PRN IV 04/02/16 13:45 05/02/16 13:44 Oxycodone/ Acetaminophen (Percocet 5-325mg Tab) 1 tab Q4H PRN PO 04/02/16 15:15 04/16/16 15:14 04/03/16 23:24 1 TAB Hydromorphone HCl (Dilaudid Inj) 0.5 mg Q4 PRN IV 04/02/16 15:15 04/16/16 15:14 04/03/16 10:47 0.5 MG Albuterol (Ventolin Hfa Inhaler) 1 puffs Q4 PRN INH 04/02/16 15:15 05/02/16 15:14 Sertraline HCl (Zoloft Tab) 100 mg DAILY PO 04/03/16 09:00 05/03/16 08:59 04/04/16 07:48 100 MG Miscellaneous Information (Order Awaiting Action) 1 ea QS N/A 04/02/16 16:00 05/02/16 15:59 Hydromorphone HCl (Dilaudid Inj) 1 mg Q4 PRN IV 04/03/16 13:15 04/17/16 13:14 04/04/16 07:49 1 MG Acetaminophen (Tylenol Tab) 1,000 mg Q6H PRN PO 04/03/16 13:15 05/03/16 13:14 Oxycodone HCl 10 mg 10 mg Q6 PRN PO 04/03/16 13:15 04/17/16 13:14 04/04/16 05:25 10 MG Sodium Chloride (Nss 1000ml) 1,000 ml @ 125 mls/hr Q8H IV 04/03/16 13:30 05/03/16 13:29 04/04/16 05:17 125 MLS/HR Fluticasone/ Vilanterol (Breo Ellipta 100-25 Mcg/Inh) 2 puffs BID INH 04/04/16 21:00 05/04/16 20:59 UNV Impression (1) Hematuria (2) Bilateral flank pain (3) Anemia (4) PTSD (post-traumatic stress disorder) (5) Asthma (6) Postconcussive syndrome Patient admitted to the hospital for evaluation of 16 day h/o gross hematuria with bilateral flank pain radiating to the groin. Abodominal CT has revealed bilateral nonobstructing kidney stones. There was no cyst or mass. Cystoscopy 03/22 was negative for bladder lesion. Urine cytology was negative. Urine culture has been negative for infection. Urine microscopy has been negative for RBC casts. He did have pyuria. Kidney function remains well preserved. Clinical picture does not fit with nephritic syndrome (PSGN, SLE) due to the absence of RBC casts, peripheral edema, accelerated HTN and worsening kidney function. Differential diagnosis includes thin basement membrane, IgA nephropathy, AVM, hypercalcuria and hyperuricosuria. Would not pursue kidney biopsy unless kidney function declines (creatinine 1.8 or greater) or the patient develops significant proteinuria. Recommendations -- IVP to evaluate for AVM, renal infarct, ureteral lesion today -- Urology note reviewed and consult appreciated -- Repeat urine CS pending -- Serologic evaluation pending -- Abdominal CT films and US films reviewed. Patient does have bilateral nonobstructing kidney stones. No mass or cyst evident -- Recommend avoiding NSAIDS, RANDA inhibitor, potential nephrotoxic agents -- A diagnosis of exclusion would be Loin Pain Hematuria Syndrome (LPHS). Typically these patients have flank pain related to intratubular crystal deposition. Nonobstructing kidney stones may be present. Patients present with gross or microscopic hematuria and flank pain. Unless kidney function is declining or patient has proteinuria they are usually treated with supportive care. The patient's pain typically resolves within several days. If pain is persistent or cannot be controlled, then consideration should be given to transfer to a tertiary care facility for renal biopsy to confirm intratubular blood and or possible renal denervation.
[2016-04-04] MEDS ORDERED: OPTIRAY 300 IV PRN (15:00)
--- NOTE | 2016-04-04 15:25 | Progress Note ---
Subjective Date of Service: Apr 04, 2016. Subjective Just came back from IVP. Urine in urinal noted to be bright red. Still reports worsening flank pain with voiding. Otherwise, no chest pain, no sob. Problem List Medical Problems: (1) Anemia Status: Acute (2) Anemia Status: Acute (3) Bilateral flank pain Status: Acute (4) Flank pain Status: Acute (5) Hematuria Status: Acute (6) Hematuria Status: Acute Review of Systems All Other Systems: Reviewed and Negative Medications Acetaminophen (Tylenol Tab) 1,000 mg Q6H PRN PO; Start 04/03/16 at 13:15; Stop 05/03/16 at 13:14 Al Hydrox/Mg Hydrox/Simethicone (Maalox Max Susp) 15 ml Q4H PRN PO; Start 04/02 at 13:45; Stop 05/02/16 at 13:44 Albuterol (Ventolin Hfa Inhaler) 1 puffs Q4 PRN INH; Start 04/02/16 at 15:15; Stop 05/02/16 at 15:14 Fluticasone/ Vilanterol (Breo Ellipta 100-25 Mcg/Inh) 2 puffs BID INH; Start at 21:00; Stop 05/04/16 at 20:59 Hydromorphone HCl (Dilaudid Inj) 0.5 mg Q4 PRN IV Last administered on t 10:47; Admin Dose 0.5 MG; Start 04/02/16 at 15:15; Stop 04/16/16 at 15:14 Hydromorphone HCl (Dilaudid Inj) 1 mg Q4 PRN IV Last administered on 04/04/16 13:03; Admin Dose 1 MG; Start 04/03/16 at 13:15; Stop 04/17/16 at 13:14 Ioversol (Optiray 300) 100 ml UD PRN IV; Start 04/04/16 at 15:00; Stop 04/08/16 at 14:59; Status UNV Magnesium Hydroxide (Milk Of Magnesia Susp) 30 ml Q6H PRN PO; Start 04/02/16 at 13:45; Stop 05/02/16 at 13:44 Ondansetron HCl (Zofran Inj) 4 mg Q6H PRN IV; Start 04/02/16 at 13:45; Stop at 13:44 Oxycodone HCl 10 mg 10 mg Q6 PRN PO Last administered on 04/04/16 05:25; Admin Dose 10 MG; Start 04/03/16 at 13:15; Stop 04/17/16 at 13:14 Oxycodone/ Acetaminophen (Percocet 5-325mg Tab) 1 tab Q4H PRN PO Last administered on 04/03/16 23:24; Admin Dose 1 TAB; Start 04/02/16 at 15:15; Stop 04/16/16 at 15:14 Polyethylene (Miralax Powder Packet) 17 gm DAILY PRN PO; Start 04/02/16 at 13: 45; Stop 05/02/16 at 13:44 Sertraline HCl (Zoloft Tab) 100 mg DAILY PO Last administered on 04/04/16 07:48 ; Admin Dose 100 MG; Start 04/03/16 at 09:00; Stop 05/03/16 at 08:59 Sodium Chloride (Nss 1000ml) 1,000 ml @ 125 mls/hr Q8H IV Last administered on 04/04/16 13:03; Admin Dose 125 MLS/HR; Start 04/03/16 at 13:30; Stop 05/03/16 at 13:29 Objective Vital Signs Date Time Temp Pulse Resp B/P Pulse Ox O2 Delivery O2 Flow Rate FiO2 04/04/16 07:40 Room Air 04/04/16 07:09 36.3 80 16 118/67 94 Room Air 04/03/16 23:27 Room Air 04/03/16 22:52 36.6 79 17 153/98 96 Room Air 04/03/16 19:59 Room Air Physical Exam Comments: nad, aox3 eomi, perrl, anicteric s1 s2 rrr, no m/r/g ctab no w/r/r abd soft, nd +BS +cva tenderness b/l no LE edema Laboratory Results Last 24 Hours Test 04/04/16 00:15 04/04/16 06:15 Urine Color RED Urine Appearance CLEAR Urine pH 6.0 Urine Specific [place] 1.004 Urine Protein 2+ Urine Glucose (UA) NEG Urine Ketones NEG Urine Occult Blood 3+ Urine Nitrite NEG Urine Bilirubin NEG Urine Urobilinogen NEG Urine Leukocyte Esterase TRACE Urine WBC (Auto) 1-5 /hpf Urine RBC (Auto) >30 /hpf Urine Hyaline Casts (Auto) 0 /lpf Urine Epithelial Cells (Auto) 0-5 /lpf Urine Bacteria (Auto) NEG Urine Random Creatinine 33.0 mg/dl Urine Random Total Protein 69.9 mg/dl Urine Protein/Creatinine Ratio 2.1 White Blood Count 4.36 K/uL Red Blood Count 4.34 M/uL Hemoglobin 8.3 g/dL Hematocrit 29.3 % Mean Corpuscular Volume 67.5 fL Mean Corpuscular Hemoglobin 19.1 pg Mean Corpuscular Hemoglobin Concent 28.3 g/dl RDW Standard Deviation 40.5 fL RDW Coefficient of Variation 16.4 % Platelet Count 232 K/uL Mean Platelet Volume 9.1 fL Sodium Level 139 mmol/L Potassium Level 4.4 mmol/L Chloride Level 105 mmol/L Carbon Dioxide Level 27 mmol/L Anion Gap 7.0 mmol/L Blood Urea Nitrogen 11 mg/dl Creatinine 1.10 mg/dl Est Creatinine Clear Calc Drug Dose 120.4 ml/min Estimated GFR () 101.7 Estimated GFR (Non- 87.7 BUN/Creatinine Ratio 9.8 Random Glucose 88 mg/dl Calcium Level 8.3 mg/dl Total Bilirubin 1.7 mg/dl Aspartate Amino Transf (AST/SGOT) 13 U/L Alanine Aminotransferase (ALT/SGPT) 25 U/L Alkaline Phosphatase 74 U/L Total Protein 6.5 gm/dl Albumin 3.5 gm/dl Globulin 3.0 gm/dl Albumin/Globulin Ratio 1.2 SPEC #: [id number] ZURDO: 04/03/16-UNK STATUS: RES REQ #: [id number] RECD: 04/03/16 [facility] DR: Boris Barker M.D. SOURCE: UR, CC ENTR: 04/03/16 [facility] DR: Tab Mendoza M.D. SPDESC: Pete Oconnor MD Johnson, Richard A., D.O. Ridenour, Ryan, D.O. Yingling, Christopher T. M.D. ORDERED: CULTURE URCLEAN COMMENTS: Has Specimen Been Obtained/Collected? Y Procedure Result Verified Site URINE CULTURE Preliminary 04/04/16-5522 NO GROWTH - LESS THAN 1,000 COLONIES/ML, Final Report to Follow. Assessment and Plan 31M PTSD, asthma, h/o sepsis with CHEKO req [employer] now admitted with recurrent gross hematuria 1. Gross hematuria - no recent URI or skin/soft tissues infections - persistent hematuria - awaiting IVP results/findings - urology on board - nephrology on board - holding off on renal biopsy especially with preserved renal function; need to r/o obstructive nephrolithiasis first 2. Asthma -stable - prn nebs - cont breo 3. PTSD - cont zoloft 4. HOMERO with blood loss - low iron levels with low Tsat and ferritin - give one dose venofer and q48hrs for 3-5 doses
--- NOTE | 2016-04-04 15:41 | DIAGNOSTIC IMAGING REPORT ---
IVP W/OR W/O TOMOGRAMS CLINICAL HISTORY: Gross hematuria. Kidney stones. COMPARISON STUDY: CT scan dated to 1016 FINDINGS: Is a 5 mm mid pole left renal calculus. The punctate calculi described on the prior CT scan within the right kidney are not visualized. The patient was injected with 100 cc of Optiray 300. The 1 minute film reveals prompt bilateral nephrograms. There is prompt bilateral excretion. Single nondilated ureters drain each kidney. No ureteral filling defects are visualized. There are no obstructive changes. No bladder abnormalities are visualized. The request states there is concern over the presence of an arteriovenous malformation. This would likely not be visualized on IVP. IMPRESSION: Left-sided nephrolithiasis. No evidence of obstruction. No uroepithelial lesions are visualized Electronically signed by: Ananda Jones M.D. 04/04/2016 3:40 PM Dictated Date/Time: 04/04/2016 3:38 PM
[2016-04-04 15:50] VITALS: BP 139/91; PULSE 82; TEMP 36.9; O2SAT 96
[2016-04-04] MEDS: OXYCODONE/ACETAMINOPHEN 5-325 TAB PO PRN (15:50)
[2016-04-04] MEDS ORDERED: IRON SUCROSE INJ 100 MG in SODIUM CHLORIDE 0.9% 100ML 100 ML IV SCH (20:00)
[2016-04-04] MEDS: FLUTICASONE FUROATE-VILANTEROL 30 PUFFS/INHALER INH INH SCH (21:04)
[2016-04-05] MEDS: SODIUM CHLORIDE 0.9% 1000ML 1,000 ML IV SCH (05:01)
[2016-04-05] MEDS: HYDROmorphone INJ 1 MG/ML SYR IV PRN ×4 (07:12→20:03)
[2016-04-05 07:14] VITALS: BP 139/89; PULSE 62; TEMP 36.6; O2SAT 98
--- NOTE | 2016-04-05 07:35 | Progress Note ---
Subjective Date of Service: Apr 05, 2016. Subjective Pt evaluation today including: conversation w/ patient, chart review, lab review Voiding: no voiding problems 31 yo male with bilateral low back pain and gross hematuria. The pt reports his pain persists this AM 10/16. Pain improved with pain medication. He continues to have gross hematuria. IVP yesterday negative for ureteral stone, obstruction, hydronephrosis, or obvious urothelial lesions. Labs pending this morning. Repeat UC&S preliminarily negative. Problem List Medical Problems: (1) Anemia Status: Acute (2) Anemia Status: Acute (3) Bilateral flank pain Status: Acute (4) Flank pain Status: Acute (5) Hematuria Status: Acute (6) Hematuria Status: Acute Review of Systems Constitutional: No chills, No fever Respiratory: No shortness of breath Cardiac: No chest pain Abdomen: No nausea, No pain, No vomiting Musculoskeletal: + problem reported (bilateral mid-low back pain 10/16) Male : + dysuria, + hematuria Heme: No abnormal bleeding/bruising Objective Vital Signs Date Time Temp Pulse Resp B/P Pulse Ox O2 Delivery O2 Flow Rate FiO2 04/05/16 07:15 Room Air 04/04/16 23:38 Room Air 04/04/16 20:00 Room Air 04/04/16 15:50 36.9 82 16 139/91 96 Room Air 04/04/16 07:40 Room Air Physical Exam General Appearance: no apparent distress Eyes: normal inspection ENT: hearing grossly normal Neck: no JVD Respiratory/Chest: no respiratory distress, no accessory muscle use Cardiovascular: no JVD Extremities: normal inspection Neurologic/Psychiatric: alert, normal mood/affect, oriented x 3 Skin: normal color Laboratory Results Last 24 Hours Test 04/05/16 04:44 Assessment and Plan A/P: Bilateral low back and flank pain, gross hematuria, nephrolithiasis AFVSS. Pt with persistent pain this morning. Etiology remains unclear. No obvious obstruction noted on IVP. Surgical management with stent placement not felt warranted in this setting. Repeat UC&S preliminarily negative. Appreciate nephrology input. ? Loin Pain Hematuria Syndrome (LPHS) ? referral for renal bx. Will continue to follow along with primary service.
[2016-04-05 07:56] LABS: HEMATOCRIT 29.4 % (42-52); MEAN CELL VOLUME 66.2 fL (80-100); MEAN CORPUSCULAR HEMOGLOBIN 18.9 pg (25-34); MEAN CORPUSCULAR HGB CONC 28.6 g/dl (32-36); MEAN PLATELET VOLUME 8.8 fL (7.4-10.4); PLATELET COUNT 233 K/uL (130-400); RED BLOOD COUNT 4.44 M/uL (4.7-6.1); WHITE BLOOD COUNT 4.36 K/uL (4.8-10.8)
[2016-04-05 08:09] LABS: BASO % 0.7 %; BASO ABS # 0.03 K/uL (0-0.2); COMPLETE YES; EOS % 6.9 %; IG% 0.2 %; LYMPH % 39.7 %; LYMPH ABS # 1.73 K/uL (1.2-3.4); MICROCYTOSIS PRESENT; MONO % 10.8 %; NEUT % 41.7 %; OVALOCYTES 1+
[2016-04-05 08:10] LABS: BUN/CREATININE RATIO 7.2 (10-20); CALCIUM 8.6 mg/dl (8.5-10.1); CREATININE 1.1 mg/dl (0.60-1.40); POTASSIUM 4.1 mmol/L (3.5-5.1)
[2016-04-05] MEDS: FLUTICASONE FUROATE-VILANTEROL 30 PUFFS/INHALER INH INH SCH ×2 (08:34→20:04)
[2016-04-05] MEDS: SERTRALINE HCL 100 MG TAB PO SCH (08:34)
[2016-04-05] MEDS: OXYCODONE/ACETAMINOPHEN 5-325 TAB PO PRN ×2 (08:37→18:18)
--- NOTE | 2016-04-05 10:49 | Nephrology Progress Note ---
Nephrology Progress Note Date of Service Apr 05, 2016. Chief Complaint Hematuria, flank pain Subjective No acute events overnight. Bilateral flank pain persists. Hematuria persists. Reports persistent pain in both kidneys radiating from flanks to abdomen. Sharp/stabbing pain. Symptoms are worse when standing and when voiding. No fevers or chills. No clots in urine. No additional information regarding family history at this time. Review of Systems A complete review of systems was performed. Pertinent positives are noted above. All other systems are negative. Vital Signs Last 8 Hrs Date Time Temp Pulse Resp B/P Pulse Ox O2 Delivery O2 Flow Rate FiO2 04/05/16 07:15 Room Air 04/05/16 07:14 36.6 62 16 139/89 98 Room Air I & O 24-Hour Column 04/05/16 07:59 Intake Total 2682 ml Output Total 925 ml Balance 1757 ml Last Recorded Weight Weight (Kilograms): 96.000 Physical Exam General Appearance: WD/WN, no apparent distress Head: normocephalic, atraumatic Eyes: normal inspection, sclerae normal ENT: normal ENT inspection, pharynx normal Neck: supple, no JVD Respiratory/Chest: lungs clear, no respiratory distress, no accessory muscle use Cardiovascular: regular rate, rhythm, no murmur Back: normal inspection, no muscle spasm, + left CVA tenderness, + right CVA tenderness Abdomen/GI: non tender, soft Extremities/Musculoskelatal: normal inspection, no pedal edema Neurologic/Psych: alert, oriented x 3 Family History Diabetes mellitus FH: heart disease FHx: lung disease Hypertension Kidney disease Kidney stones Negative for CKD / ESRD Social History Marital Status: single Occupation: unemployed . No children. Denies tobacco or alcohol use Laboratory Results Past 24 Hours 04/05/16 07:26 Red Blood Count 4.44, Mean Corpuscular Volume 66.2, Mean Corpuscular Hemoglobin 18.9, Mean Corpuscular Hemoglobin Concent 28.6, Mean Platelet Volume 8.8, Neutrophils (%) (Auto) 41.7, Lymphocytes (%) (Auto) 39.7, Monocytes (%) (Auto) 10.8, Eosinophils (%) (Auto) 6.9, Basophils (%) (Auto) 0.7, Neutrophils # (Auto ) 1.82, Lymphocytes # (Auto) 1.73, Monocytes # (Auto) 0.47, Eosinophils # (Auto ) 0.30, Basophils # (Auto) 0.03 04/05/16 07:26 Test 04/05/16 07:26 04/05/16 09:47 White Blood Count 4.36 K/uL (4.8-10.8) Red Blood Count 4.44 M/uL (4.7-6.1) Hemoglobin 8.4 g/dL (14.0-18.0) Hematocrit 29.4 % (42-52) Mean Corpuscular Volume 66.2 fL (80-100) Mean Corpuscular Hemoglobin 18.9 pg (25-34) Mean Corpuscular Hemoglobin Concent 28.6 g/dl (32-36) Platelet Count 233 K/uL (130-400) Mean Platelet Volume 8.8 fL (7.4-10.4) Neutrophils (%) (Auto) 41.7 % Lymphocytes (%) (Auto) 39.7 % Monocytes (%) (Auto) 10.8 % Eosinophils (%) (Auto) 6.9 % Basophils (%) (Auto) 0.7 % Neutrophils # (Auto) 1.82 K/uL (1.4-6.5) Lymphocytes # (Auto) 1.73 K/uL (1.2-3.4) Monocytes # (Auto) 0.47 K/uL (0.11-0.59) Eosinophils # (Auto) 0.30 K/uL (0-0.5) Basophils # (Auto) 0.03 K/uL (0-0.2) RDW Standard Deviation 40.1 fL (36.4-46.3) RDW Coefficient of Variation 16.8 % (11.5-14.5) Immature Granulocyte % (Auto) 0.2 % Immature Granulocyte # (Auto) 0.01 K/uL (0.00-0.02) Microcytosis PRESENT Ovalocytes 1+ Anion Gap 9.0 mmol/L (3-11) Est Creatinine Clear Calc Drug Dose 116.6 ml/min Estimated GFR () 101.7 Estimated GFR (Non- 87.7 BUN/Creatinine Ratio 7.2 (10-20) Calcium Level 8.6 mg/dl (8.5-10.1) Allergies Coded Allergies: Penicillins (Unverified Allergy, Intermediate, ITCHY BLOTCHES, 2/25/17) Medications Current Inpatient Medications Medications (Trade) Dose Ordered Sig/Reena Route Start Time Stop Time Status Last Admin Dose Admin Al Hydrox/Mg Hydrox/Simethicone (Maalox Max Susp) 15 ml Q4H PRN PO 04/02/16 13:45 05/02/16 13:44 Magnesium Hydroxide (Milk Of Magnesia Susp) 30 ml Q6H PRN PO 04/02/16 13:45 05/02/16 13:44 Polyethylene (Miralax Powder Packet) 17 gm DAILY PRN PO 04/02/16 13:45 05/02/16 13:44 Ondansetron HCl (Zofran Inj) 4 mg Q6H PRN IV 04/02/16 13:45 05/02/16 13:44 Oxycodone/ Acetaminophen (Percocet 5-325mg Tab) 1 tab Q4H PRN PO 04/02/16 15:15 04/16/16 15:14 04/05/16 08:37 1 TAB Hydromorphone HCl (Dilaudid Inj) 0.5 mg Q4 PRN IV 04/02/16 15:15 04/16/16 15:14 04/03/16 10:47 0.5 MG Albuterol (Ventolin Hfa Inhaler) 1 puffs Q4 PRN INH 04/02/16 15:15 05/02/16 15:14 Sertraline HCl (Zoloft Tab) 100 mg DAILY PO 04/03/16 09:00 05/03/16 08:59 04/05/16 08:34 100 MG Hydromorphone HCl (Dilaudid Inj) 1 mg Q4 PRN IV 04/03/16 13:15 04/17/16 13:14 04/05/16 07:12 1 MG Acetaminophen (Tylenol Tab) 1,000 mg Q6H PRN PO 04/03/16 13:15 05/03/16 13:14 Oxycodone HCl 10 mg 10 mg Q6 PRN PO 04/03/16 13:15 04/17/16 13:14 04/04/16 23:35 10 MG Sodium Chloride (Nss 1000ml) 1,000 ml @ 125 mls/hr Q8H IV 04/03/16 13:30 05/03/16 13:29 04/05/16 05:01 125 MLS/HR Fluticasone/ Vilanterol (Breo Ellipta 100-25 Mcg/Inh) 2 puffs BID INH 04/04/16 21:00 05/04/16 20:59 04/05/16 08:34 2 PUFFS Ioversol (Optiray 300) 100 ml UD PRN IV 04/04/16 15:00 04/08/16 14:59 Impression (1) Hematuria (2) Bilateral flank pain (3) Anemia (4) PTSD (post-traumatic stress disorder) (5) Asthma (6) Postconcussive syndrome Patient admitted to the hospital for evaluation of 16 day h/o gross hematuria with bilateral flank pain radiating to the groin. Abdominal CT revealed nonobstructing kidney stones. There was no cyst or mass. Cystoscopy 03/22 was negative for bladder lesion. Urine cytology was negative. Urine culture has been negative for infection. Urine microscopy was negative for RBC casts. He did have pyuria. Kidney function remains well preserved. Clinical picture does not fit with nephritic syndrome (PSGN, SLE) due to the absence of RBC casts , peripheral edema, accelerated HTN and worsening kidney function. Differential diagnosis includes thin basement membrane, IgA nephropathy, AVM, hypercalcuria and hyperuricosuria. Would not pursue kidney biopsy unless kidney function declines (creatinine 1.8 or greater) or the patient develops significant proteinuria. IVP negative for pathologic lesions. Given family history of neurologic symptoms and kidney disease without any additional information at this time, we could consider Fabry disease but it would be very unusual to present with gross hematuria. Alpha-galactosidase activity level sent today. 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 Would continue to hold renal biopsy option at this time. Recommendations -- IVP reviewed this morning. Cannot exclude AVM or similar undocumented lesion. -- Hematuria with pain to this extent is unlikely to be glomerular. Cannot exclude LPHS but clinical presentation - in which case may continue to observe for potential improvement. -- ARNOLDO and complement levels pending -- Abdominal CT films and US films reviewed. Patient does have nonobstructing kidney stones. No mass or cyst evident -- Will check alpha-galactosidase activity level -- Stop NSS infusion
--- NOTE | 2016-04-05 14:40 | DIAGNOSTIC IMAGING REPORT ---
DOPPLER ULTRASOUND OF THE RENAL ARTERIES CLINICAL HISTORY: Hematuria. Flank pain. COMPARISON STUDY: Abdominal CT dated to. TECHNIQUE: Doppler sonography of the renal arteries was performed to assess renal artery stenosis. Images are reviewed in the transverse and longitudinal planes. FINDINGS: The kidneys appear normal in size and echotexture. Right kidney measures 11.2 cm in length and the left kidney measures 13.1 cm in length. There is no hydronephrosis. On the right, intrarenal arterial resistive indices range from 0.56 to 0.58. Intrarenal arterial waveforms are normal with brisk upstrokes. The right renal arterial waveform is normal, and velocities within the right renal artery measure up to 55 cm/sec. The right renal vein is patent. On the left, intrarenal arterial resistive indices range from 0.56 to 0.60. Intrarenal arterial waveforms are normal with brisk upstrokes. The left renal arterial waveform is normal, and velocities within the left renal artery measure up to 69 cm/sec. The left renal vein is patent. The abdominal aorta is patent. Velocities within the abdominal aorta measure up to 97 cm/s. IMPRESSION: There is no sonographic evidence of renal artery stenosis. Electronically signed by: Compa Ortez M.D. 04/05/2016 2:39 PM Dictated Date/Time: 04/05/2016 2:37 PM
--- NOTE | 2016-04-05 15:22 | Progress Note ---
Subjective Date of Service: Apr 05, 2016. Subjective Pt evaluation today including: conversation w/ patient, conversation w/ family , physical exam, chart review, lab review, review of studies, review of inpatient medication list Just came back from renal US with dopplers. STill has flank pain worse with voiding. STill with hematuria. NO fevers, no chest pain, no sob. Fair appetite. Problem List Medical Problems: (1) Anemia Status: Acute (2) Anemia Status: Acute (3) Bilateral flank pain Status: Acute (4) Flank pain Status: Acute (5) Hematuria Status: Acute (6) Hematuria Status: Acute Review of Systems All Other Systems: Reviewed and Negative Medications Acetaminophen (Tylenol Tab) 1,000 mg Q6H PRN PO; Start 04/03/16 at 13:15; Stop 05/03/16 at 13:14 Al Hydrox/Mg Hydrox/Simethicone (Maalox Max Susp) 15 ml Q4H PRN PO; Start 04/02 at 13:45; Stop 05/02/16 at 13:44 Albuterol (Ventolin Hfa Inhaler) 1 puffs Q4 PRN INH; Start 04/02/16 at 15:15; Stop 05/02/16 at 15:14 Fluticasone/ Vilanterol (Breo Ellipta 100-25 Mcg/Inh) 2 puffs BID INH Last administered on 04/05/16 08:34; Admin Dose 2 PUFFS; Start 04/04/16 at 21:00; Stop 05/04/16 at 20:59 Hydromorphone HCl (Dilaudid Inj) 0.5 mg Q4 PRN IV Last administered on 10:47; Admin Dose 0.5 MG; Start 04/02/16 at 15:15; Stop 04/16/16 at 15:14 Hydromorphone HCl (Dilaudid Inj) 1 mg Q4 PRN IV Last administered on 04/05/16 15:22; Admin Dose 1 MG; Start 04/03/16 at 13:15; Stop 04/17/16 at 13:14 Ioversol (Optiray 300) 100 ml UD PRN IV; Start 04/04/16 at 15:00; Stop 04/08/16 at 14:59 Magnesium Hydroxide (Milk Of Magnesia Susp) 30 ml Q6H PRN PO; Start 04/02/16 at 13:45; Stop 05/02/16 at 13:44 Ondansetron HCl (Zofran Inj) 4 mg Q6H PRN IV; Start 04/02/16 at 13:45; Stop at 13:44 Oxycodone HCl (Roxicodone Immediate Rel Tab) 10 mg Q6 PRN PO Last administered on 04/04/16 23:35; Admin Dose 10 MG; Start 04/03/16 at 13:15; Stop 04/17/16 at 13:14 Oxycodone/ Acetaminophen (Percocet 5-325mg Tab) 1 tab Q4H PRN PO Last administered on 04/05/16 08:37; Admin Dose 1 TAB; Start 04/02/16 at 15:15; Stop 04/16/16 at 15:14 Polyethylene (Miralax Powder Packet) 17 gm DAILY PRN PO; Start 04/02/16 at 13: 45; Stop 05/02/16 at 13:44 Sertraline HCl (Zoloft Tab) 100 mg DAILY PO Last administered on 04/05/16 08:34 ; Admin Dose 100 MG; Start 04/03/16 at 09:00; Stop 05/03/16 at 08:59 Objective Vital Signs Date Time Temp Pulse Resp B/P Pulse Ox O2 Delivery O2 Flow Rate FiO2 04/05/16 07:15 Room Air 04/05/16 07:14 36.6 62 16 139/89 98 Room Air 04/04/16 23:38 Room Air 04/04/16 20:00 Room Air 04/04/16 15:50 36.9 82 16 139/91 96 Room Air Physical Exam Comments: nad, aox3 eomi, perrl, anicteric s1 s2 rrr, no murmurs appreciated ctab no w/r/r abd soft, nd +BS, +cva tenderness b/l no LE edema cn 2-12 grossly intact Laboratory Results Last 24 Hours Test 04/05/16 07:26 04/05/16 09:47 White Blood Count 4.36 K/uL Red Blood Count 4.44 M/uL Hemoglobin 8.4 g/dL Hematocrit 29.4 % Mean Corpuscular Volume 66.2 fL Mean Corpuscular Hemoglobin 18.9 pg Mean Corpuscular Hemoglobin Concent 28.6 g/dl Platelet Count 233 K/uL Mean Platelet Volume 8.8 fL Neutrophils (%) (Auto) 41.7 % Lymphocytes (%) (Auto) 39.7 % Monocytes (%) (Auto) 10.8 % Eosinophils (%) (Auto) 6.9 % Basophils (%) (Auto) 0.7 % Neutrophils # (Auto) 1.82 K/uL Lymphocytes # (Auto) 1.73 K/uL Monocytes # (Auto) 0.47 K/uL Eosinophils # (Auto) 0.30 K/uL Basophils # (Auto) 0.03 K/uL RDW Standard Deviation 40.1 fL RDW Coefficient of Variation 16.8 % Immature Granulocyte % (Auto) 0.2 % Immature Granulocyte # (Auto) 0.01 K/uL Microcytosis PRESENT Ovalocytes 1+ Sodium Level 141 mmol/L Potassium Level 4.1 mmol/L Chloride Level 106 mmol/L Carbon Dioxide Level 26 mmol/L Anion Gap 9.0 mmol/L Blood Urea Nitrogen 8 mg/dl Creatinine 1.10 mg/dl Est Creatinine Clear Calc Drug Dose 116.6 ml/min Estimated GFR () 101.7 Estimated GFR (Non- 87.7 BUN/Creatinine Ratio 7.2 Random Glucose 80 mg/dl Calcium Level 8.6 mg/dl Assessment and Plan 31M PTSD, asthma, h/o sepsis with CHEKO req [employer] now admitted with recurrent gross hematuria 1. Gross hematuria - no recent URI or skin/soft tissues infections - persistent hematuria - IVP without any e/o obstruction, punctate 5mm left renal calculi - no urological intervention would benefit patient at this point - nephrology on board, appreciate recs. awaiting serologies including ARNOLDO, alpha -GLuc1, and complements 2. Asthma - stable - prn nebs - cont breo 3. PTSD - cont zoloft 4. HOMERO with blood loss - low iron levels with low Tsat and ferritin - give one dose venofer and q48hrs for 3-5 doses - will give another dose venofer tomorrow
[2016-04-05 17:28] VITALS: BP 147/86; PULSE 85; TEMP 36.9; O2SAT 96
[2016-04-05 18:15] LABS: BUN/CREATININE RATIO 7.1 (10-20); CALCIUM 8.5 mg/dl (8.5-10.1); CREATININE 1.1 mg/dl (0.60-1.40); POTASSIUM 3.4 mmol/L (3.5-5.1)
[2016-04-05 18:53] LABS: HEMATOCRIT 30.4 % (42-52); MEAN CELL VOLUME 65.9 fL (80-100); MEAN CORPUSCULAR HEMOGLOBIN 18.9 pg (25-34); MEAN CORPUSCULAR HGB CONC 28.6 g/dl (32-36); MEAN PLATELET VOLUME 8.6 fL (7.4-10.4); PLATELET COUNT 247 K/uL (130-400); RED BLOOD COUNT 4.61 M/uL (4.7-6.1); WHITE BLOOD COUNT 4.29 K/uL (4.8-10.8)
[2016-04-05 23:40] VITALS: BP_SYST 145; BP_SYST 151; BP_DIAS 105; BP_DIAS 91; PULSE 77; TEMP 36.9; O2SAT 98
[2016-04-06] MEDS: HYDROmorphone INJ 1 MG/ML SYR IV PRN ×3 (00:03→09:32)
[2016-04-06 05:00] VITALS: BP 134/84; PULSE 71
[2016-04-06] MEDS: SERTRALINE HCL 100 MG TAB PO SCH (07:41)
[2016-04-06] MEDS: FLUTICASONE FUROATE-VILANTEROL 30 PUFFS/INHALER INH INH SCH ×2 (07:42→21:10)
--- NOTE | 2016-04-06 07:55 | Progress Note ---
Subjective Date of Service: Apr 06, 2016. Subjective Pt evaluation today including: conversation w/ patient, chart review, lab review Voiding: no voiding problems Pt continues to c/o bilateral low back pain 09/15 this morning. He reports receiving pain medication at 0530 this morning. He denies improvement in his pain since admission. Gross hematuria persists as well. Denies n/v this morning. Problem List Medical Problems: (1) Anemia Status: Acute (2) Anemia Status: Acute (3) Bilateral flank pain Status: Acute (4) Flank pain Status: Acute (5) Hematuria Status: Acute (6) Hematuria Status: Acute Review of Systems Constitutional: No chills, No fever Respiratory: No shortness of breath Cardiac: No chest pain Abdomen: No nausea, No pain, No vomiting Musculoskeletal: + problem reported (bilateral low back pain ) Male : + hematuria Heme: + abnormal bleeding/bruising Objective Vital Signs Date Time Temp Pulse Resp B/P Pulse Ox O2 Delivery O2 Flow Rate FiO2 04/06/16 05:00 71 134/84 04/05/16 23:40 36.9 77 18 151/105 98 Room Air 145/91 04/05/16 20:00 Room Air 04/05/16 17:28 36.9 85 18 147/86 96 Room Air Physical Exam General Appearance: no apparent distress Eyes: normal inspection ENT: hearing grossly normal Neck: no JVD Respiratory/Chest: no respiratory distress, no accessory muscle use Cardiovascular: no JVD Extremities: normal inspection Neurologic/Psychiatric: alert, normal mood/affect, oriented x 3 Skin: normal color Laboratory Results Last 24 Hours Test 04/05/16 09:47 04/05/16 16:58 White Blood Count 4.29 K/uL Red Blood Count 4.61 M/uL Hemoglobin 8.7 g/dL Hematocrit 30.4 % Mean Corpuscular Volume 65.9 fL Mean Corpuscular Hemoglobin 18.9 pg Mean Corpuscular Hemoglobin Concent 28.6 g/dl RDW Standard Deviation 39.2 fL RDW Coefficient of Variation 16.7 % Platelet Count 247 K/uL Mean Platelet Volume 8.6 fL Sodium Level 136 mmol/L Potassium Level 3.4 mmol/L Chloride Level 103 mmol/L Carbon Dioxide Level 25 mmol/L Anion Gap 8.0 mmol/L Blood Urea Nitrogen 8 mg/dl Creatinine 1.10 mg/dl Est Creatinine Clear Calc Drug Dose 116.6 ml/min Estimated GFR () 101.7 Estimated GFR (Non- 87.7 BUN/Creatinine Ratio 7.1 Random Glucose 126 mg/dl Calcium Level 8.5 mg/dl Assessment and Plan A/P: Bilateral low back and flank pain, gross hematuria, nephrolithiasis AFVSS. Pt with persistent pain this morning. Pt remains calm without distress despite persistent severe pain throughout his admission. Etiology remains unclear. No obvious obstruction noted on IVP. Renal stones noted. Not clear that a URS and stent placement for removal of stones would be of any benefit to the pt at this point. Appreciate nephrology input. ? Loin Pain Hematuria Syndrome (LPHS). Further immunology labs pending for further evaluation of other cause. Could also consider cryptic bacterial or fungal UTI? Urology meeting pending this morning. Will have the urologists discuss this pt' s case for further input. Will continue to follow along with primary service.
[2016-04-06 08:04] VITALS: BP 139/85; PULSE 72; TEMP 36.9; O2SAT 96
[2016-04-06] MEDS: IRON SUCROSE INJ 200 MG in SODIUM CHLORIDE 0.9% 100ML 100 ML IV SCH (09:17)
--- NOTE | 2016-04-06 09:19 | Nephrology Progress Note ---
Nephrology Progress Note Date of Service Apr 06, 2016. Chief Complaint Hematuria, flank pain Subjective No acute events overnight. Persistent bilateral pain. The intensity is slightly worse this morning. Voided red urine at 6 AM. No improvement in hematuria. Small clot strained from urine this morning. Denies fevers or chills. Denies shortness of breath. Review of Systems A complete review of systems was performed. Pertinent positives are noted above. All other systems are negative. Vital Signs Last 8 Hrs Date Time Temp Pulse Resp B/P Pulse Ox O2 Delivery O2 Flow Rate FiO2 04/06/16 08:04 36.9 72 16 139/85 96 Room Air 04/06/16 08:00 Room Air 04/06/16 05:00 71 134/84 I & O 24-Hour Column 04/06/16 08:00 Intake Total 1395 ml Output Total 550 ml Balance 845 ml Last Recorded Weight Weight (Kilograms): 96.000 Physical Exam General Appearance: WD/WN, no apparent distress Head: normocephalic, atraumatic Eyes: normal inspection, sclerae normal ENT: normal ENT inspection, pharynx normal Neck: supple, no JVD Respiratory/Chest: lungs clear, no respiratory distress, no accessory muscle use Cardiovascular: regular rate, rhythm, no murmur Back: normal inspection, no muscle spasm, + left CVA tenderness, + right CVA tenderness Abdomen/GI: soft, + tenderness Extremities/Musculoskelatal: normal inspection, no pedal edema Neurologic/Psych: alert, oriented x 3 Family History Diabetes mellitus FH: heart disease FHx: lung disease Hypertension Kidney disease Kidney stones Negative for CKD / ESRD Social History Marital Status: single Occupation: unemployed . No children. Denies tobacco or alcohol use Laboratory Results Past 24 Hours 04/05/16 16:58 04/05/16 16:58 Test 04/05/16 09:47 04/05/16 16:58 Red Blood Count 4.61 M/uL (4.7-6.1) Mean Corpuscular Volume 65.9 fL (80-100) Mean Corpuscular Hemoglobin 18.9 pg (25-34) Mean Corpuscular Hemoglobin Concent 28.6 g/dl (32-36) RDW Standard Deviation 39.2 fL (36.4-46.3) RDW Coefficient of Variation 16.7 % (11.5-14.5) Mean Platelet Volume 8.6 fL (7.4-10.4) Anion Gap 8.0 mmol/L (3-11) Est Creatinine Clear Calc Drug Dose 116.6 ml/min Estimated GFR () 101.7 Estimated GFR (Non- 87.7 BUN/Creatinine Ratio 7.1 (10-20) Calcium Level 8.5 mg/dl (8.5-10.1) Allergies Coded Allergies: Penicillins (Unverified Allergy, Intermediate, ITCHY BLOTCHES, 04/02/16) Medications Current Inpatient Medications Medications (Trade) Dose Ordered Sig/Reena Route Start Time Stop Time Status Last Admin Dose Admin Al Hydrox/Mg Hydrox/Simethicone (Maalox Max Susp) 15 ml Q4H PRN PO 04/02/16 13:45 05/02/16 13:44 Magnesium Hydroxide (Milk Of Magnesia Susp) 30 ml Q6H PRN PO 04/02/16 13:45 05/02/16 13:44 Polyethylene (Miralax Powder Packet) 17 gm DAILY PRN PO 04/02/16 13:45 05/02/16 13:44 Ondansetron HCl (Zofran Inj) 4 mg Q6H PRN IV 04/02/16 13:45 05/02/16 13:44 Oxycodone/ Acetaminophen (Percocet 5-325mg Tab) 1 tab Q4H PRN PO 04/02/16 15:15 04/16/16 15:14 04/05/16 18:18 1 TAB Hydromorphone HCl (Dilaudid Inj) 0.5 mg Q4 PRN IV 04/02/16 15:15 04/16/16 15:14 04/03/16 10:47 0.5 MG Albuterol (Ventolin Hfa Inhaler) 1 puffs Q4 PRN INH 04/02/16 15:15 05/02/16 15:14 Sertraline HCl (Zoloft Tab) 100 mg DAILY PO 04/03/16 09:00 05/03/16 08:59 04/06/16 07:41 100 MG Hydromorphone HCl (Dilaudid Inj) 1 mg Q4 PRN IV 04/03/16 13:15 04/17/16 13:14 04/06/16 05:25 1 MG Acetaminophen (Tylenol Tab) 1,000 mg Q6H PRN PO 04/03/16 13:15 05/03/16 13:14 Oxycodone HCl (Roxicodone Immediate Rel Tab) 10 mg Q6 PRN PO 04/03/16 13:15 04/17/16 13:14 04/04/16 23:35 10 MG Fluticasone/ Vilanterol (Breo Ellipta 100-25 Mcg/Inh) 2 puffs BID INH 04/04/16 21:00 05/04/16 20:59 04/06/16 07:42 2 PUFFS Ioversol 100 ml 100 ml UD PRN IV 04/04/16 15:00 04/08/16 14:59 Iron Sucrose/ Sodium Chloride (Venofer Inj/Nss 100ml) 110 ml @ 420 mls/hr DAILY@0900 IV 04/06/16 09:00 04/10/16 12:00 Impression (1) Hematuria (2) Bilateral flank pain (3) Anemia (4) PTSD (post-traumatic stress disorder) (5) Asthma (6) Postconcussive syndrome Patient admitted to the hospital for evaluation of 16 day h/o gross hematuria with bilateral flank pain radiating to the groin. Abdominal CT revealed nonobstructing kidney stones. There was no cyst or mass. Cystoscopy 03/22 was negative for bladder lesion. Urine cytology was negative. Urine culture has been negative for infection. Urine microscopy was negative for RBC casts. He did have pyuria. Kidney function remains well preserved. Clinical picture does not fit with nephritic syndrome (PSGN, SLE) due to the absence of RBC casts , peripheral edema, accelerated HTN and worsening kidney function. Differential diagnosis includes thin basement membrane, IgA nephropathy, AVM, hypercalcuria and hyperuricosuria. Would not pursue kidney biopsy unless kidney function declines (creatinine 1.8 or greater) or the patient develops significant proteinuria. IVP negative for pathologic lesions. Given family history of neurologic symptoms and kidney disease without any additional information at this time, we could consider Fabry disease but it would be very unusual to present with gross hematuria. Alpha-galactosidase activity level sent today. 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 Would continue to hold renal biopsy option at this time. Recommendations -- Renal duplex negative for renal artery compression or stenosis. Renal veins patent bilaterally. -- Small clot strained from urine this morning. This is not consistent with glomerular hematuria. -- Still cannot exclude LPHS but but clinical presentation very atypical - in which case may continue to observe for potential improvement. -- ARNOLDO, alpha-galactosidase activity level and complement levels pending -- Discussed with SOURAV Wood this morning. Await additional recs from urology -- For iron deficiency venofer 200 mg daily x 5 ordered
[2016-04-06] MEDS: OXYCODONE/ACETAMINOPHEN 5-325 TAB PO PRN ×3 (11:20→23:23)
--- NOTE | 2016-04-06 13:11 | Progress Note ---
Subjective Date of Service: Apr 06, 2016. Subjective Pt evaluation today including: conversation w/ patient, physical exam, review of studies, review of inpatient medication list Persistent flank pain No chest pain, no sob. Persistent gross hematuria. Otherwise, good appetite. Problem List Medical Problems: (1) Anemia Status: Acute (2) Anemia Status: Acute (3) Bilateral flank pain Status: Acute (4) Flank pain Status: Acute (5) Hematuria Status: Acute (6) Hematuria Status: Acute Review of Systems All Other Systems: Reviewed and Negative Medications Acetaminophen (Tylenol Tab) 1,000 mg Q6H PRN PO; Start 04/03/16 at 13:15; Stop 05/03/16 at 13:14 Al Hydrox/Mg Hydrox/Simethicone (Maalox Max Susp) 15 ml Q4H PRN PO; Start 04/02 at 13:45; Stop 05/02/16 at 13:44 Albuterol (Ventolin Hfa Inhaler) 1 puffs Q4 PRN INH; Start 04/02/16 at 15:15; Stop 05/02/16 at 15:14 Fluticasone/ Vilanterol (Breo Ellipta 100-25 Mcg/Inh) 2 puffs BID INH Last administered on 04/06/16 07:42; Admin Dose 2 PUFFS; Start 04/04/16 at 21:00; Stop 05/04/16 at 20:59 Hydromorphone HCl (Dilaudid Tab) 2 mg Q6H PRN PO Last administered on 04/06/16 13:20; Admin Dose 2 MG; Start 04/06/16 at 13:15; Stop 04/20/16 at 13:14 Ioversol 100 ml 100 ml UD PRN IV; Start 04/04/16 at 15:00; Stop 04/08/16 at 14: 59 Iron Sucrose/ Sodium Chloride (Venofer Inj/Nss 100ml) 110 ml @ 420 mls/hr DAILY @0900 IV Last administered on 04/06/16 09:17; Admin Dose 420 MLS/HR; Start at 09:00; Stop 04/10/16 at 12:00 Magnesium Hydroxide (Milk Of Magnesia Susp) 30 ml Q6H PRN PO; Start 04/02/16 at 13:45; Stop 05/02/16 at 13:44 Ondansetron HCl (Zofran Inj) 4 mg Q6H PRN IV; Start 04/02/16 at 13:45; Stop at 13:44 Oxycodone HCl (Roxicodone Immediate Rel Tab) 10 mg Q6 PRN PO Last administered on 04/04/16 23:35; Admin Dose 10 MG; Start 04/03/16 at 13:15; Stop 04/17/16 at 13:14 Oxycodone/ Acetaminophen (Percocet 5-325mg Tab) 1 tab Q4H PRN PO Last administered on 04/06/16 17:18; Admin Dose 1 TAB; Start 04/02/16 at 15:15; Stop 04/16/16 at 15:14 Polyethylene (Miralax Powder Packet) 17 gm DAILY PRN PO; Start 04/02/16 at 13: 45; Stop 05/02/16 at 13:44 Sertraline HCl (Zoloft Tab) 100 mg DAILY PO Last administered on 04/06/16 07:41 ; Admin Dose 100 MG; Start 04/03/16 at 09:00; Stop 05/03/16 at 08:59 Objective Vital Signs Date Time Temp Pulse Resp B/P Pulse Ox O2 Delivery O2 Flow Rate FiO2 04/06/16 11:18 Room Air 04/06/16 08:04 36.9 72 16 139/85 96 Room Air 04/06/16 08:00 Room Air 04/06/16 05:00 71 134/84 04/05/16 23:40 36.9 77 18 151/105 98 Room Air 145/91 04/05/16 20:00 Room Air 04/05/16 17:28 36.9 85 18 147/86 96 Room Air Physical Exam Comments: nad, aox3 eomi, perrl, anicteric s1 s2 rrr, no murmurs appreciated ctab no w/r/r abd soft, + b/l cva tenderness, +BS no LE edema cn 2-12 grossly intact without facial drooping Laboratory Results Last 24 Hours Test 04/05/16 16:58 White Blood Count 4.29 K/uL Red Blood Count 4.61 M/uL Hemoglobin 8.7 g/dL Hematocrit 30.4 % Mean Corpuscular Volume 65.9 fL Mean Corpuscular Hemoglobin 18.9 pg Mean Corpuscular Hemoglobin Concent 28.6 g/dl RDW Standard Deviation 39.2 fL RDW Coefficient of Variation 16.7 % Platelet Count 247 K/uL Mean Platelet Volume 8.6 fL Sodium Level 136 mmol/L Potassium Level 3.4 mmol/L Chloride Level 103 mmol/L Carbon Dioxide Level 25 mmol/L Anion Gap 8.0 mmol/L Blood Urea Nitrogen 8 mg/dl Creatinine 1.10 mg/dl Est Creatinine Clear Calc Drug Dose 116.6 ml/min Estimated GFR () 101.7 Estimated GFR (Non- 87.7 BUN/Creatinine Ratio 7.1 Random Glucose 126 mg/dl Calcium Level 8.5 mg/dl CLINICAL HISTORY: Hematuria. Flank pain. COMPARISON STUDY: Abdominal CT dated to. TECHNIQUE: Doppler sonography of the renal arteries was performed to assess renal artery stenosis. Images are reviewed in the transverse and longitudinal planes. FINDINGS: The kidneys appear normal in size and echotexture. Right kidney measures 11.2 cm in length and the left kidney measures 13.1 cm in length. There is no hydronephrosis. On the right, intrarenal arterial resistive indices range from 0.56 to 0.58. Intrarenal arterial waveforms are normal with brisk upstrokes. The right renal arterial waveform is normal, and velocities within the right renal artery measure up to 55 cm/sec. The right renal vein is patent. On the left, intrarenal arterial resistive indices range from 0.56 to 0.60. Intrarenal arterial waveforms are normal with brisk upstrokes. The left renal arterial waveform is normal, and velocities within the left renal artery measure up to 69 cm/sec. The left renal vein is patent. The abdominal aorta is patent. Velocities within the abdominal aorta measure up to 97 cm/s. IMPRESSION: There is no sonographic evidence of renal artery stenosis. Electronically signed by: Compa Ortez M.D. 04/05/2016 2:39 PM Assessment and Plan 31M PTSD, asthma, h/o sepsis with CHEKO req [employer] now admitted with recurrent gross hematuria 1. Gross hematuria - no recent URI or skin/soft tissues infections - persistent hematuria - IVP without any e/o obstruction, punctate 5mm left renal calculi - no urological intervention would benefit patient at this point - no [facility] on renal US - would consider MRI for evaluation of RAVM vs digital subtraction angio if available - nephrology on board, appreciate recs. awaiting serologies including alpha- GLuc1 2. Asthma - stable - prn nebs - cont breo 3. PTSD - cont zoloft 4. HOMERO with blood loss - low iron levels with low Tsat and ferritin - venofer per nephro
[2016-04-06] MEDS: HYDROmorphone HCL 2 MG TAB PO PRN ×2 (13:20→19:24)
[2016-04-06 16:23] VITALS: BP 131/83; PULSE 76; TEMP 36.9; O2SAT 98
[2016-04-06 17:35] LABS: HCT 29.3 % (38.5-50.0); HEMOGLOBIN A2 1.9 % (1.8-3.5); HGB 8.6 g/dL (13.2-17.1); MCH 19.1 pg (27.0-33.0); RBC 4.51 Mill/uL (4.20-5.80); RDW 17.8 % (11.0-15.0)
[2016-04-06 23:04] VITALS: BP 144/79; PULSE 75; TEMP 36.8; O2SAT 96
[2016-04-07] MEDS: HYDROmorphone HCL 2 MG TAB PO PRN ×3 (03:25→20:47)
[2016-04-07 06:16] LABS: BUN/CREATININE RATIO 8.4 (10-20); CALCIUM 8.6 mg/dl (8.5-10.1); CREATININE 1.1 mg/dl (0.60-1.40); MAGNESIUM 2.2 mg/dl (1.8-2.4); POTASSIUM 3.8 mmol/L (3.5-5.1)
[2016-04-07 06:18] LABS: ALB/GLOB RATIO 1.2 (0.9-2)
[2016-04-07 07:01] LABS: HEMATOCRIT 30.5 % (42-52); MEAN CELL VOLUME 66.9 fL (80-100); MEAN CORPUSCULAR HEMOGLOBIN 19.1 pg (25-34); MEAN CORPUSCULAR HGB CONC 28.5 g/dl (32-36); MEAN PLATELET VOLUME 9.1 fL (7.4-10.4); PLATELET COUNT 271 K/uL (130-400); RED BLOOD COUNT 4.56 M/uL (4.7-6.1); WHITE BLOOD COUNT 4.72 K/uL (4.8-10.8)
[2016-04-07] MEDS: OXYCODONE/ACETAMINOPHEN 5-325 TAB PO PRN ×4 (08:15→23:36)
[2016-04-07] MEDS: FLUTICASONE FUROATE-VILANTEROL 30 PUFFS/INHALER INH INH SCH ×2 (08:15→20:49)
[2016-04-07] MEDS: IRON SUCROSE INJ 200 MG in SODIUM CHLORIDE 0.9% 100ML 100 ML IV SCH (08:15)
[2016-04-07] MEDS: SERTRALINE HCL 100 MG TAB PO SCH (08:15)
--- NOTE | 2016-04-07 08:19 | Progress Note ---
Subjective Date of Service: Apr 07, 2016. Subjective Pt evaluation today including: conversation w/ patient, chart review, lab review 31 yo male with bilateral back pain, gross hematuria, and nephrolithiasis. Pt continues to report gross hematuria this morning. Urine strainer noted to be bloody in the bathroom, but no other urine available to view. The pt continues to c/o persistent back pain / this morning. Denies n/v. Denies dysuria. H&H and Cr noted to be stable. Positive ARNOLDO. Problem List Medical Problems: (1) Anemia Status: Acute (2) Anemia Status: Acute (3) Bilateral flank pain Status: Acute (4) Flank pain Status: Acute (5) Hematuria Status: Acute (6) Hematuria Status: Acute Review of Systems Constitutional: No chills, No fever Respiratory: No shortness of breath Cardiac: No chest pain Abdomen: No nausea, No pain, No vomiting Musculoskeletal: + problem reported (bilateral low back pain 09/15) Male : + hematuria Heme: + abnormal bleeding/bruising Objective Vital Signs Date Time Temp Pulse Resp B/P Pulse Ox O2 Delivery O2 Flow Rate FiO2 04/06/16 23:20 Room Air 04/06/16 23:04 36.8 75 19 144/79 96 Room Air 04/06/16 16:23 36.9 76 17 131/83 98 Room Air 04/06/16 16:00 Room Air 04/06/16 11:18 Room Air Physical Exam General Appearance: no apparent distress Eyes: normal inspection ENT: hearing grossly normal Neck: no JVD Respiratory/Chest: no respiratory distress, no accessory muscle use Cardiovascular: no JVD Extremities: normal inspection Neurologic/Psychiatric: alert, normal mood/affect, oriented x 3 Skin: normal color Laboratory Results Last 24 Hours Test 04/07/16 05:11 White Blood Count 4.72 K/uL Red Blood Count 4.56 M/uL Hemoglobin 8.7 g/dL Hematocrit 30.5 % Mean Corpuscular Volume 66.9 fL Mean Corpuscular Hemoglobin 19.1 pg Mean Corpuscular Hemoglobin Concent 28.5 g/dl RDW Standard Deviation 40.5 fL RDW Coefficient of Variation 17.7 % Platelet Count 271 K/uL Mean Platelet Volume 9.1 fL Sodium Level 141 mmol/L Potassium Level 3.8 mmol/L Chloride Level 105 mmol/L Carbon Dioxide Level 28 mmol/L Anion Gap 8.0 mmol/L Blood Urea Nitrogen 9 mg/dl Creatinine 1.10 mg/dl Est Creatinine Clear Calc Drug Dose 116.6 ml/min Estimated GFR () 101.7 Estimated GFR (Non- 87.7 BUN/Creatinine Ratio 8.4 Random Glucose 86 mg/dl Calcium Level 8.6 mg/dl Magnesium Level 2.2 mg/dl Total Bilirubin 1.2 mg/dl Aspartate Amino Transf (AST/SGOT) 16 U/L Alanine Aminotransferase (ALT/SGPT) 31 U/L Alkaline Phosphatase 73 U/L Total Protein 6.9 gm/dl Albumin 3.8 gm/dl Globulin 3.1 gm/dl Albumin/Globulin Ratio 1.2 Assessment and Plan A/P: Bilateral low back and flank pain, gross hematuria, nephrolithiasis AFVSS. Pt with persistent pain this morning. Pt remains calm without distress despite persistent severe pain throughout his admission. Etiology for pain and gross hematuria remains unclear. No obvious obstruction, renal or ureteral masses noted on IVP or CT. Renal stones noted. Previous outpatient hematuria eval with cysto noted to be negative. From a perspective , no evidence for surgical management at this time. Renal stones unlikely source for bilateral severe pain and gross hematuria, and a URS with stent placement likely to cause worsening pain and hematuria. Would avoid for now. Appreciate nephrology input. ? Loin Pain Hematuria Syndrome (LPHS). Further immunology labs pending for further evaluation of other cause. ARNOLDO noted to be positive this morning. Could also consider cryptic bacterial or fungal UTI? Consider sending repeat cath UC&S for fungal culture? Unfortunately urology has little more to offer in regards to this case. Would observe for now, and allow further evaluation per nephrology.
[2016-04-07 08:23] VITALS: BP 110/66; PULSE 63; TEMP 36.8; O2SAT 97
--- NOTE | 2016-04-07 09:23 | Nephrology Progress Note ---
Nephrology Progress Note Date of Service Apr 07, 2016. Chief Complaint Hematuria, flank pain Subjective Tip continues to struggle with significant voiding pain. He describes the feeling of razor blades in his kidneys and abdomen when he voids. He has intermittent sharp-stabbing pain throughout the day as well. No fevers or chills. Appetite is good. He was in the bathroom this morning but had recently disposed of his urine. Urine reported as persistent dark red without any additional clots. I discussed the plan of care in detail with his nurse. Review of Systems A complete review of systems was performed. Pertinent positives are noted above. All other systems are negative. Vital Signs Last 8 Hrs Date Time Temp Pulse Resp B/P Pulse Ox O2 Delivery O2 Flow Rate FiO2 04/07/16 08:23 36.8 63 16 110/66 97 Room Air 04/07/16 08:20 Room Air I & O 24-Hour Column 04/07/16 08:00 Intake Total 905 ml Output Total 675 ml Balance 230 ml Last Recorded Weight Weight (Kilograms): 96.000 Physical Exam General Appearance: WD/WN, no apparent distress Head: normocephalic, atraumatic Eyes: normal inspection, sclerae normal ENT: normal ENT inspection, pharynx normal Neck: supple, no JVD Respiratory/Chest: lungs clear, no respiratory distress, no accessory muscle use Cardiovascular: regular rate, rhythm, no murmur Abdomen/GI: non tender, soft Extremities/Musculoskelatal: normal inspection, no pedal edema Neurologic/Psych: alert, oriented x 3 Family History Diabetes mellitus FH: heart disease FHx: lung disease Hypertension Kidney disease Kidney stones Negative for CKD / ESRD Social History Marital Status: single Occupation: unemployed . No children. Denies tobacco or alcohol use Laboratory Results Past 24 Hours 04/07/16 05:11 04/07/16 05:11 Test 04/07/16 05:11 Red Blood Count 4.56 M/uL (4.7-6.1) Mean Corpuscular Volume 66.9 fL (80-100) Mean Corpuscular Hemoglobin 19.1 pg (25-34) Mean Corpuscular Hemoglobin Concent 28.5 g/dl (32-36) RDW Standard Deviation 40.5 fL (36.4-46.3) RDW Coefficient of Variation 17.7 % (11.5-14.5) Mean Platelet Volume 9.1 fL (7.4-10.4) Anion Gap 8.0 mmol/L (3-11) Est Creatinine Clear Calc Drug Dose 116.6 ml/min Estimated GFR () 101.7 Estimated GFR (Non- 87.7 BUN/Creatinine Ratio 8.4 (10-20) Calcium Level 8.6 mg/dl (8.5-10.1) Magnesium Level 2.2 mg/dl (1.8-2.4) Total Bilirubin 1.2 mg/dl (0.2-1) Aspartate Amino Transf (AST/SGOT) 16 U/L (15-37) Alanine Aminotransferase (ALT/SGPT) 31 U/L (12-78) Alkaline Phosphatase 73 U/L (45-117) Total Protein 6.9 gm/dl (6.4-8.2) Albumin 3.8 gm/dl (3.4-5.0) Globulin 3.1 gm/dl (2.5-4.0) Albumin/Globulin Ratio 1.2 (0.9-2) Allergies Coded Allergies: Penicillins (Unverified Allergy, Intermediate, ITCHY BLOTCHES, 04/02/16) Medications Current Inpatient Medications Medications (Trade) Dose Ordered Sig/Reena Route Start Time Stop Time Status Last Admin Dose Admin Al Hydrox/Mg Hydrox/Simethicone (Maalox Max Susp) 15 ml Q4H PRN PO 04/02/16 13:45 05/02/16 13:44 Magnesium Hydroxide (Milk Of Magnesia Susp) 30 ml Q6H PRN PO 04/02/16 13:45 05/02/16 13:44 Polyethylene (Miralax Powder Packet) 17 gm DAILY PRN PO 04/02/16 13:45 05/02/16 13:44 Ondansetron HCl (Zofran Inj) 4 mg Q6H PRN IV 04/02/16 13:45 05/02/16 13:44 Oxycodone/ Acetaminophen (Percocet 5-325mg Tab) 1 tab Q4H PRN PO 04/02/16 15:15 04/16/16 15:14 04/07/16 08:15 1 TAB Albuterol (Ventolin Hfa Inhaler) 1 puffs Q4 PRN INH 04/02/16 15:15 05/02/16 15:14 Sertraline HCl (Zoloft Tab) 100 mg DAILY PO 04/03/16 09:00 05/03/16 08:59 04/07/16 08:15 100 MG Acetaminophen (Tylenol Tab) 1,000 mg Q6H PRN PO 04/03/16 13:15 05/03/16 13:14 Oxycodone HCl (Roxicodone Immediate Rel Tab) 10 mg Q6 PRN PO 04/03/16 13:15 04/17/16 13:14 04/04/16 23:35 10 MG Fluticasone/ Vilanterol (Breo Ellipta 100-25 Mcg/Inh) 2 puffs BID INH 04/04/16 21:00 05/04/16 20:59 04/07/16 08:15 2 PUFFS Ioversol 100 ml 100 ml UD PRN IV 04/04/16 15:00 04/08/16 14:59 Iron Sucrose/ Sodium Chloride (Venofer Inj/Nss 100ml) 110 ml @ 420 mls/hr DAILY@0900 IV 04/06/16 09:00 04/10/16 12:00 04/07/16 08:15 420 MLS/HR Hydromorphone HCl (Dilaudid Tab) 2 mg Q6H PRN PO 04/06/16 13:15 04/20/16 13:14 04/07/16 03:25 2 MG Impression (1) Hematuria (2) Bilateral flank pain (3) Anemia (4) PTSD (post-traumatic stress disorder) (5) Asthma (6) Postconcussive syndrome Patient admitted to the hospital for evaluation of 16 day h/o gross hematuria with bilateral flank pain radiating to the groin. Abdominal CT revealed nonobstructing kidney stones. There was no cyst or mass. Renal duplex negative for renal artery compression or stenosis. Renal veins patent bilaterally. Cystoscopy 03/22 was negative for bladder lesion. Urine cytology was negative. Urine culture has been negative for infection. Urine microscopy was negative for RBC casts or crystals. He did have pyuria. Kidney function remains well preserved. Clinical picture does not fit with nephritic syndrome ( PSGN, SLE) due to the absence of RBC casts, peripheral edema, accelerated HTN and worsening kidney function. ARNOLDO is positive (1:160 homogeneous). ESR was 4 and complement levels are normal. This is not consistent with lupus nephritis. Differential diagnosis for hematuria includes thin basement membrane, LPHS, IgA nephropathy, AVM, hypercalcuria and hyperuricosuria. Glomerular hematuria generally would not persist for this many days. There was a reported clot filtered from the urine yesterday. Obtaining a 24 hour urine collection is complicated by persistent gross hematuria. Urology note reviewed and repeat UA.micro with fungal culture ordered. Would not pursue kidney biopsy unless kidney function declines (creatinine 1.8 or greater) or the patient develops significant proteinuria. IVP negative for pathologic lesions. If urine starts to clear will order 24 hour collection. Recommendations -- Alpha-galactosidase activity level pending -- For iron deficiency venofer 200 mg daily x 5 ordered -- Obtain urine cath sample for fungal culture and repeat UA/microscopy -- 24 hour urine collection when urine starts to clear
[2016-04-07 10:35] LABS: MANUAL MICROSCOPIC REQUIRED? NO; REVIEW REQ? NO; URINE APPEARANCE CLEAR (CLEAR); URINE BILIRUBIN NEG (NEG); URINE COLOR YELLOW; URINE EPITHELIAL CELL AUTO 20-30 /lpf (0-5); URINE NITRITE NEG (NEG); URINE SPECIFIC GRAVITY 1.012 (1.000-1.030); UROBILINOGEN NEG (NEG); ZZURINE CULT IF INDIC CATH NO
--- NOTE | 2016-04-07 11:58 | Progress Note ---
Subjective Date of Service: Apr 07, 2016. Subjective Pt evaluation today including: conversation w/ patient, conversation w/ family , physical exam, lab review, review of studies, conversation w/ banking consultant, review of inpatient medication list Spoke with Dr. Thaddeus Hernandez re: management and plan. Patient has persistent hematuria and bilateral flank pain. Otherwise, no chest pain, no sob. Good appetite. CUrrently having 24-hour urine collection done. Problem List Medical Problems: (1) Anemia Status: Acute (2) Anemia Status: Acute (3) Bilateral flank pain Status: Acute (4) Flank pain Status: Acute (5) Hematuria Status: Acute (6) Hematuria Status: Acute Review of Systems All Other Systems: Reviewed and Negative Medications Acetaminophen (Tylenol Tab) 1,000 mg Q6H PRN PO; Start 04/03/16 at 13:15; Stop 05/03/16 at 13:14 Al Hydrox/Mg Hydrox/Simethicone (Maalox Max Susp) 15 ml Q4H PRN PO; Start 04/02 at 13:45; Stop 05/02/16 at 13:44 Albuterol (Ventolin Hfa Inhaler) 1 puffs Q4 PRN INH; Start 04/02/16 at 15:15; Stop 05/02/16 at 15:14 Fluticasone/ Vilanterol (Breo Ellipta 100-25 Mcg/Inh) 2 puffs BID INH Last administered on 04/07/16 08:15; Admin Dose 2 PUFFS; Start 04/04/16 at 21:00; Stop 05/04/16 at 20:59 Hydromorphone HCl (Dilaudid Tab) 2 mg Q6H PRN PO Last administered on 04/07/16 10:13; Admin Dose 2 MG; Start 04/06/16 at 13:15; Stop 04/20/16 at 13:14 Ioversol 100 ml 100 ml UD PRN IV; Start 04/04/16 at 15:00; Stop 04/08/16 at 14: 59 Iron Sucrose/ Sodium Chloride (Venofer Inj/Nss 100ml) 110 ml @ 420 mls/hr DAILY @0900 IV Last administered on 04/07/16 08:15; Admin Dose 420 MLS/HR; Start at 09:00; Stop 04/10/16 at 12:00 Magnesium Hydroxide (Milk Of Magnesia Susp) 30 ml Q6H PRN PO; Start 04/02/16 at 13:45; Stop 05/02/16 at 13:44 Ondansetron HCl (Zofran Inj) 4 mg Q6H PRN IV; Start 04/02/16 at 13:45; Stop at 13:44 Oxycodone HCl (Roxicodone Immediate Rel Tab) 10 mg Q6 PRN PO Last administered on 04/04/16 23:35; Admin Dose 10 MG; Start 04/03/16 at 13:15; Stop 04/17/16 at 13:14 Oxycodone/ Acetaminophen (Percocet 5-325mg Tab) 1 tab Q4H PRN PO Last administered on 04/07/16 11:48; Admin Dose 1 TAB; Start 04/02/16 at 15:15; Stop 04/16/16 at 15:14 Polyethylene (Miralax Powder Packet) 17 gm DAILY PRN PO; Start 04/02/16 at 13: 45; Stop 05/02/16 at 13:44 Sertraline HCl (Zoloft Tab) 100 mg DAILY PO Last administered on 04/07/16 08:15 ; Admin Dose 100 MG; Start 04/03/16 at 09:00; Stop 05/03/16 at 08:59 Objective Vital Signs Date Time Temp Pulse Resp B/P Pulse Ox O2 Delivery O2 Flow Rate FiO2 04/07/16 08:23 36.8 63 16 110/66 97 Room Air 04/07/16 08:20 Room Air 04/06/16 23:20 Room Air 04/06/16 23:04 36.8 75 19 144/79 96 Room Air 04/06/16 16:23 36.9 76 17 131/83 98 Room Air 04/06/16 16:00 Room Air Physical Exam Comments: nad, aox3 eomi, perrl, anicteric s1 s2 rrr, no murmurs appreciated ctab no w/r/r abd soft ,nt nd +BS +b/l cva tend no LE edema cn2-12 grossly intact without facial drooping Laboratory Results Last 24 Hours Test 04/07/16 05:11 04/07/16 09:25 04/07/16 10:57 White Blood Count 4.72 K/uL Red Blood Count 4.56 M/uL Hemoglobin 8.7 g/dL Hematocrit 30.5 % Mean Corpuscular Volume 66.9 fL Mean Corpuscular Hemoglobin 19.1 pg Mean Corpuscular Hemoglobin Concent 28.5 g/dl RDW Standard Deviation 40.5 fL RDW Coefficient of Variation 17.7 % Platelet Count 271 K/uL Mean Platelet Volume 9.1 fL Sodium Level 141 mmol/L Potassium Level 3.8 mmol/L Chloride Level 105 mmol/L Carbon Dioxide Level 28 mmol/L Anion Gap 8.0 mmol/L Blood Urea Nitrogen 9 mg/dl Creatinine 1.10 mg/dl Est Creatinine Clear Calc Drug Dose 116.6 ml/min Estimated GFR () 101.7 Estimated GFR (Non- 87.7 BUN/Creatinine Ratio 8.4 Random Glucose 86 mg/dl Calcium Level 8.6 mg/dl Magnesium Level 2.2 mg/dl Total Bilirubin 1.2 mg/dl Aspartate Amino Transf (AST/SGOT) 16 U/L Alanine Aminotransferase (ALT/SGPT) 31 U/L Alkaline Phosphatase 73 U/L Total Protein 6.9 gm/dl Albumin 3.8 gm/dl Globulin 3.1 gm/dl Albumin/Globulin Ratio 1.2 Urine Color YELLOW Urine Appearance CLEAR Urine pH 6.0 Urine Specific [place] 1.012 Urine Protein NEG Urine Glucose (UA) NEG Urine Ketones NEG Urine Occult Blood NEG Urine Nitrite NEG Urine Bilirubin NEG Urine Urobilinogen NEG Urine Leukocyte Esterase NEG Urine WBC (Auto) 1-5 /hpf Urine RBC (Auto) 0-4 /hpf Urine Hyaline Casts (Auto) 1-5 /lpf Urine Epithelial Cells (Auto) 20-30 /lpf Urine Bacteria (Auto) NEG Assessment and Plan 31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 Gross hematuria - no recent URI or skin/soft tissues infections - persistent hematuria - IVP without any e/o obstruction, punctate 5mm left renal calculi - no urological intervention would benefit patient at this point - no [facility] on renal US - appreciated nephro and urology input. 24-hour urine collection in progress, fungal ucx pending 2. Asthma - stable - prn nebs - cont breo 3. PTSD - cont zoloft 4. HOMERO with blood loss - low iron levels with low Tsat and ferritin - venofer per nephro
[2016-04-07] MEDS: OXYCODONE HCL IR 5 MG TAB (IMMEDIATE RELEASE) PO PRN (14:26)
[2016-04-07 14:58] VITALS: BP 147/80; PULSE 80; TEMP 36.9; O2SAT 96
[2016-04-07 23:31] VITALS: BP 138/84; PULSE 62; TEMP 36.5; O2SAT 98
[2016-04-08 07:21] LABS: BASO % 0.7 %; BASO ABS # 0.03 K/uL (0-0.2); HEMATOCRIT 31.7 % (42-52); IG% 0.2 %; LYMPH % 43.3 %; LYMPH ABS # 1.91 K/uL (1.2-3.4); MEAN CELL VOLUME 67.7 fL (80-100); MEAN CORPUSCULAR HEMOGLOBIN 19.7 pg (25-34); MEAN PLATELET VOLUME 8.9 fL (7.4-10.4); MONO % 7.9 %; NEUT % 37.9 %; PLATELET COUNT 244 K/uL (130-400); RED BLOOD COUNT 4.68 M/uL (4.7-6.1); WHITE BLOOD COUNT 4.41 K/uL (4.8-10.8)
[2016-04-08] MEDS: OXYCODONE/ACETAMINOPHEN 5-325 TAB PO PRN ×3 (07:27→23:25)
[2016-04-08] MEDS: SERTRALINE HCL 100 MG TAB PO SCH (07:28)
[2016-04-08] MEDS: FLUTICASONE FUROATE-VILANTEROL 30 PUFFS/INHALER INH INH SCH ×2 (07:28→21:03)
[2016-04-08 07:55] LABS: BUN/CREATININE RATIO 10.7 (10-20); CALCIUM 8.9 mg/dl (8.5-10.1); CREATININE 1.1 mg/dl (0.60-1.40); POTASSIUM 3.9 mmol/L (3.5-5.1)
[2016-04-08 08:22] LABS: COMPLETE YES; MICROCYTOSIS PRESENT; POLYCHROMASIA 1+
[2016-04-08] MEDS: HYDROmorphone HCL 2 MG TAB PO PRN ×3 (08:59→21:02)
[2016-04-08] MEDS: IRON SUCROSE INJ 200 MG in SODIUM CHLORIDE 0.9% 100ML 100 ML IV SCH (09:00)
--- NOTE | 2016-04-08 09:24 | Progress Note ---
Subjective Date of Service: Apr 08, 2016. (Emily Robert CRNP) Subjective Pt evaluation today including: conversation w/ patient, physical exam, chart review 31 year old male with gross hematuria Previous workup negative for hematuria. Continues to complain of constant bilateral flank pain that radiates around to front of abdomen. Stabbing not burning pain with voiding. Position change, heat or ice is not helpful to alleviate pain. Has tried pyridium in past for pain with voiding without success. Prelim urine bacterial and fungal cultures showing no growth. CT abd/pelvis- no urologic pathology- no masses, obstructions or stones. Question if Loin Pain Hematuria syndrome- immunology labs pending. ARNOLDO is positive. Afebrile VSS Hemodynamically stable. (Emily Robert CRNP) Problem List Medical Problems: (1) Anemia Status: Acute (2) Anemia Status: Acute (3) Bilateral flank pain Status: Acute (4) Flank pain Status: Acute (5) Hematuria Status: Acute (6) Hematuria Status: Acute (Emily Robert CRNP) Review of Systems Constitutional: No chills, No fever ENT: No hearing loss Respiratory: No cough, No shortness of breath Cardiac: No chest pain Abdomen: + pain, + see HPI Male : + dysuria, + hematuria, + see HPI, + urinary frequency Psychiatric: No depression symptoms Heme: + abnormal bleeding/bruising Endo: + fatigue (Emily Robert CRNP) Objective Vital Signs Date Time Temp Pulse Resp B/P Pulse Ox O2 Delivery O2 Flow Rate FiO2 04/08/16 07:32 Room Air 04/07/16 23:37 Room Air 04/07/16 23:31 36.5 62 18 138/84 98 Room Air 04/07/16 15:45 Room Air 04/07/16 14:58 36.9 80 16 147/80 96 Room Air (Emily Robert CRNP) Physical Exam General Appearance: WD/WN, no apparent distress Eyes: normal inspection ENT: hearing grossly normal Neck: no JVD Respiratory/Chest: no respiratory distress, no accessory muscle use Abdomen: soft Extremities: normal range of motion, non-tender, normal inspection, no pedal edema, no calf tenderness Neurologic/Psychiatric: alert, normal mood/affect, oriented x 3 Skin: normal color, warm/dry, no rash (Emily Robert CRNP) Laboratory Results Last 24 Hours Test 04/07/16 09:25 04/07/16 10:57 04/08/16 06:42 Urine Color YELLOW Urine Appearance CLEAR Urine pH 6.0 Urine Specific [place] 1.012 Urine Protein NEG Urine Glucose (UA) NEG Urine Ketones NEG Urine Occult Blood NEG Urine Nitrite NEG Urine Bilirubin NEG Urine Urobilinogen NEG Urine Leukocyte Esterase NEG Urine WBC (Auto) 1-5 /hpf Urine RBC (Auto) 0-4 /hpf Urine Hyaline Casts (Auto) 1-5 /lpf Urine Epithelial Cells (Auto) 20-30 /lpf Urine Bacteria (Auto) NEG White Blood Count 4.41 K/uL Red Blood Count 4.68 M/uL Hemoglobin 9.2 g/dL Hematocrit 31.7 % Mean Corpuscular Volume 67.7 fL Mean Corpuscular Hemoglobin 19.7 pg Mean Corpuscular Hemoglobin Concent 29.0 g/dl Platelet Count 244 K/uL Mean Platelet Volume 8.9 fL Neutrophils (%) (Auto) 37.9 % Lymphocytes (%) (Auto) 43.3 % Monocytes (%) (Auto) 7.9 % Eosinophils (%) (Auto) 10.0 % Basophils (%) (Auto) 0.7 % Neutrophils # (Auto) 1.67 K/uL Lymphocytes # (Auto) 1.91 K/uL Monocytes # (Auto) 0.35 K/uL Eosinophils # (Auto) 0.44 K/uL Basophils # (Auto) 0.03 K/uL RDW Standard Deviation 41.4 fL RDW Coefficient of Variation 18.7 % Immature Granulocyte % (Auto) 0.2 % Immature Granulocyte # (Auto) 0.01 K/uL Polychromasia 1+ Microcytosis PRESENT Sodium Level 141 mmol/L Potassium Level 3.9 mmol/L Chloride Level 106 mmol/L Carbon Dioxide Level 25 mmol/L Anion Gap 10.0 mmol/L Blood Urea Nitrogen 12 mg/dl Creatinine 1.10 mg/dl Est Creatinine Clear Calc Drug Dose 116.6 ml/min Estimated GFR () 101.7 Estimated GFR (Non- 87.7 BUN/Creatinine Ratio 10.7 Random Glucose 80 mg/dl Calcium Level 8.9 mg/dl (Emily Robert CRNP) Assessment and Plan Hematuria w/pain His urine cultures both bacterial and fungal are showing no growth on the prelim. No urologic surgical intervention. Question of Loin Pain Hematuria Syndrome- immunology labs pending- Given the amount of pain he has with voiding may consider inserting a chapa- this could alleviate pain and could monitor hematuria. Have discussed case with Dr. Martinez. He will stop to see pt later today. (Emily Robert CRNP) Spoke with Dr. Hernandez who plans on discharging pt for possible bx in [place] next week .I suggested a second opinion there as there has not been a clear explanation of this pts symptoms . He agreed with this. Rene Martinez (Rene Martinez M.D.)
--- NOTE | 2016-04-08 10:17 | Discharge Summary ---
Discharge Summary Date of Service Apr 08, 2016. 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 Gross hematuria - no recent URI or skin/soft tissues infections - persistent hematuria - IVP without any e/o obstruction, punctate 5mm left renal calculi - no urological intervention would benefit patient at this point - no [facility] on renal US - appreciated nephro and urology input. 24-hour urine collection in progress, fungal ucx pending 2. Asthma - stable - prn nebs - cont breo 3. PTSD - cont zoloft 4. HOMERO with blood loss - low iron levels with low Tsat and ferritin - venofer per nephro This includes examination of the patient, discharge planning, medication reconciliation, and communication with other providers. Discharge Instructions Please refer to the electronic Patient Visit Report (Discharge Instructions) for additional information.
--- NOTE | 2016-04-08 10:41 | Discharge Summary ---
Discharge Summary Date of Service Apr 08, 2016. Discharge Summary Admission Date: Apr 02, 2016 at 13:44 Discharge Date: Apr 08, 2016 Discharge Disposition: Home Principal Diagnosis: gross hematuria Problems/Secondary Diagnoses: DOPPLER ULTRASOUND OF THE RENAL ARTERIES CLINICAL HISTORY: Hematuria. Flank pain. COMPARISON STUDY: Abdominal CT dated . TECHNIQUE: Doppler sonography of the renal arteries was performed to assess renal artery stenosis. Images are reviewed in the transverse and longitudinal planes. FINDINGS: The kidneys appear normal in size and echotexture. Right kidney measures 11.2 cm in length and the left kidney measures 13.1 cm in length. There is no hydronephrosis. On the right, intrarenal arterial resistive indices range from 0.56 to 0.58. Intrarenal arterial waveforms are normal with brisk upstrokes. The right renal arterial waveform is normal, and velocities within the right renal artery measure up to 55 cm/sec. The right renal vein is patent. On the left, intrarenal arterial resistive indices range from 0.56 to 0.60. Intrarenal arterial waveforms are normal with brisk upstrokes. The left renal arterial waveform is normal, and velocities within the left renal artery measure up to 69 cm/sec. The left renal vein is patent. The abdominal aorta is patent. Velocities within the abdominal aorta measure up to 97 cm/s. IMPRESSION: There is no sonographic evidence of renal artery stenosis. Electronically signed by: Compa Ortez M.D. 04/05/2016 2:39 PM Procedures: IVP W/OR W/O TOMOGRAMS CLINICAL HISTORY: Gross hematuria. Kidney stones. COMPARISON STUDY: CT scan dated to 1016 FINDINGS: Is a 5 mm mid pole left renal calculus. The punctate calculi described on the prior CT scan within the right kidney are not visualized. The patient was injected with 100 cc of Optiray 300. The 1 minute film reveals prompt bilateral nephrograms. There is prompt bilateral excretion. Single nondilated ureters drain each kidney. No ureteral filling defects are visualized. There are no obstructive changes. No bladder abnormalities are visualized. The request states there is concern over the presence of an arteriovenous malformation. This would likely not be visualized on IVP. IMPRESSION: Left-sided nephrolithiasis. No evidence of obstruction. No uroepithelial lesions are visualized Medication Reconciliation New Medications: Oxycodone HCl (Oxycodone HCl) 5 Mg Tab 5 MG PO TID PRN for severe pain for 14 Days, #42 Sennosides-Docusate Sodium (Senokot S) 1 Tab Tab 1 TAB PO DAILY for Constipation for 14 Days, #14 TAB take when taking pain medication Continued Medications: Acetaminophen (Tylenol) 325 Mg Tab 650 MG PO DAILY PRN for Pain, TAB Albuterol Hfa (Ventolin Hfa) 200 Puffs/85710 Mcg Aers 2-4 PUFFS INH BID, #1 INHALER Albuterol Sulf (Proventil 0.083% 2.5MG/3ML) 2.5 Mg/3 Ml Nebu 2.5 MG INH QID, EA Fluticasone Furoate-Vilanterol (Breo Ellipta) 1 Inh Inh 2 PUFFS INH BID Sertraline (Zoloft) 100 Mg Tab 100 MG PO DAILY, TAB Hospital Course 31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 Gross hematuria - no recent URI or skin/soft tissues infections - persistent hematuria, of note however is a straight cath urine sample that had no e/o hematuria - IVP without any e/o obstruction, punctate 5mm left renal calculi - no urological intervention would benefit patient at this point - no [facility] on renal US, ARNOLDO positive but complements wnl and unlikely to be normal if it were active lupus - renal function preserved, holding off on biopsy for now - appreciated nephro and urology input. 24-hour urine collection in progress, will f/u with nephrology as outpatient for results along with results of other serologies - will f/u with urology as well - also advised to f/u with Dr. Lee or establish with another primary care physician 2. Asthma - stable - prn nebs - cont breo 3. PTSD - cont zoloft 4. HOMERO with blood loss - low iron levels with low Tsat and ferritin - venofer per nephro 5. Flank pain - unclear etiology - may be related to gross hematuria however with straight cath UA without e/o hematuria, it is unclear if the two are related - on review of pain medication prescriptions on the database, patient seems to consistently have been on pain medications with oxycodone or percocet or tylenol with codeine since may of 2015 - will provide enough pain medications for 2 weeks until he sees his primary care physician who will resume pain management Total Time Spent: Less than 30 minutes This includes examination of the patient, discharge planning, medication reconciliation, and communication with other providers. Discharge Instructions Please refer to the electronic Patient Visit Report (Discharge Instructions) for additional information. Follow-Up Nephrology [phone] Urology PCP Additional Copies To Michael Lee D.O.
[2016-04-08] MEDS ORDERED: SENN-65 PO (10:43)
[2016-04-08] MEDS ORDERED: RXC5 PO (10:43)
--- NOTE | 2016-04-08 10:45 | Discharge Instructions ---
Discharge Instructions Admission Reason for Admission: Anemia, Hematuria Discharge Discharge Diagnosis / Problem: gross hematuria Discharge Goals Goal(s): Decrease discomfort, Improve disease control Activity Recommendations Activity Limitations: resume your previous activity . Current Hospital Diet Patient's current hospital diet: Regular Diet Discharge Diet Recommended Diet: Regular Diet Pending Studies Studies pending at discharge: yes List of pending studies: 24-hour urine collection, serologies Medical Emergencies . Who to Call and When: Medical Emergencies: If at any time you feel your situation is an emergency, please call 911 immediately. . Non-Emergent Contact Non-Emergency issues call your: Primary Care Provider, Bottle Washer (Dr. [phone]), Urologist Call Non-Emergent contact if: your pain is worsening . . "Provider Documentation" section prepared by Mamta Manrique. VTE Core Measure Inpt VTE Proph given/why not?: Contraindicated
--- NOTE | 2016-04-08 10:49 | Nephrology Progress Note ---
Nephrology Progress Note Date of Service Apr 08, 2016. Chief Complaint Hematuria, flank pain Subjective No acute events overnight. Flank pain persists. The symptoms remain bilateral and worse when he voids. He continues to suffer from intermittent pain radiating to the abdomen as well. Plan of care was discussed in detail with Dr. Manrique as well as urology. Mr. To is comfortable with discharge home today pending he completes his 24 hour urine collection. He states urine remains gross hematuria. He continues to strain all urine. There have not been any additional clots. He does not have fevers or chills. Review of Systems A complete review of systems was performed. Pertinent positives are noted above. All other systems are negative. Vital Signs Last 8 Hrs Date Time Temp Pulse Resp B/P Pulse Ox O2 Delivery O2 Flow Rate FiO2 04/08/16 07:32 Room Air I & O 24-Hour Column 04/08/16 08:00 Intake Total 720 ml Balance 720 ml Last Recorded Weight Weight (Kilograms): 96.000 Physical Exam General Appearance: WD/WN, no apparent distress Head: normocephalic, atraumatic Eyes: normal inspection, sclerae normal ENT: normal ENT inspection, pharynx normal Neck: supple, no JVD Respiratory/Chest: lungs clear, no respiratory distress, no accessory muscle use Cardiovascular: regular rate, rhythm, no gallop Abdomen/GI: non tender, soft Extremities/Musculoskelatal: normal inspection, no pedal edema Neurologic/Psych: alert, oriented x 3 Family History Diabetes mellitus FH: heart disease FHx: lung disease Hypertension Kidney disease Kidney stones Negative for CKD / ESRD Social History Marital Status: single Occupation: unemployed . No children. Denies tobacco or alcohol use Laboratory Results Past 24 Hours 04/08/16 06:42 Red Blood Count 4.68, Mean Corpuscular Volume 67.7, Mean Corpuscular Hemoglobin 19.7, Mean Corpuscular Hemoglobin Concent 29.0, Mean Platelet Volume 8.9, Neutrophils (%) (Auto) 37.9, Lymphocytes (%) (Auto) 43.3, Monocytes (%) (Auto) 7.9, Eosinophils (%) (Auto) 10.0, Basophils (%) (Auto) 0.7, Neutrophils # (Auto ) 1.67, Lymphocytes # (Auto) 1.91, Monocytes # (Auto) 0.35, Eosinophils # (Auto ) 0.44, Basophils # (Auto) 0.03 04/08/16 06:42 Test 04/07/16 10:57 04/08/16 06:42 White Blood Count 4.41 K/uL (4.8-10.8) Red Blood Count 4.68 M/uL (4.7-6.1) Hemoglobin 9.2 g/dL (14.0-18.0) Hematocrit 31.7 % (42-52) Mean Corpuscular Volume 67.7 fL (80-100) Mean Corpuscular Hemoglobin 19.7 pg (25-34) Mean Corpuscular Hemoglobin Concent 29.0 g/dl (32-36) Platelet Count 244 K/uL (130-400) Mean Platelet Volume 8.9 fL (7.4-10.4) Neutrophils (%) (Auto) 37.9 % Lymphocytes (%) (Auto) 43.3 % Monocytes (%) (Auto) 7.9 % Eosinophils (%) (Auto) 10.0 % Basophils (%) (Auto) 0.7 % Neutrophils # (Auto) 1.67 K/uL (1.4-6.5) Lymphocytes # (Auto) 1.91 K/uL (1.2-3.4) Monocytes # (Auto) 0.35 K/uL (0.11-0.59) Eosinophils # (Auto) 0.44 K/uL (0-0.5) Basophils # (Auto) 0.03 K/uL (0-0.2) RDW Standard Deviation 41.4 fL (36.4-46.3) RDW Coefficient of Variation 18.7 % (11.5-14.5) Immature Granulocyte % (Auto) 0.2 % Immature Granulocyte # (Auto) 0.01 K/uL (0.00-0.02) Polychromasia 1+ Microcytosis PRESENT Anion Gap 10.0 mmol/L (3-11) Est Creatinine Clear Calc Drug Dose 116.6 ml/min Estimated GFR () 101.7 Estimated GFR (Non- 87.7 BUN/Creatinine Ratio 10.7 (10-20) Calcium Level 8.9 mg/dl (8.5-10.1) Allergies Coded Allergies: Penicillins (Unverified Allergy, Intermediate, ITCHY BLOTCHES, 04/02/16) Medications Current Inpatient Medications Medications (Trade) Dose Ordered Sig/Reena Route Start Time Stop Time Status Last Admin Dose Admin Al Hydrox/Mg Hydrox/Simethicone (Maalox Max Susp) 15 ml Q4H PRN PO 04/02/16 13:45 05/02/16 13:44 Magnesium Hydroxide (Milk Of Magnesia Susp) 30 ml Q6H PRN PO 04/02/16 13:45 05/02/16 13:44 Polyethylene (Miralax Powder Packet) 17 gm DAILY PRN PO 04/02/16 13:45 05/02/16 13:44 Ondansetron HCl (Zofran Inj) 4 mg Q6H PRN IV 04/02/16 13:45 05/02/16 13:44 Oxycodone/ Acetaminophen (Percocet 5-325mg Tab) 1 tab Q4H PRN PO 04/02/16 15:15 04/16/16 15:14 04/08/16 07:27 1 TAB Albuterol (Ventolin Hfa Inhaler) 1 puffs Q4 PRN INH 04/02/16 15:15 05/02/16 15:14 Sertraline HCl (Zoloft Tab) 100 mg DAILY PO 04/03/16 09:00 05/03/16 08:59 04/08/16 07:28 100 MG Acetaminophen (Tylenol Tab) 1,000 mg Q6H PRN PO 04/03/16 13:15 05/03/16 13:14 Oxycodone HCl (Roxicodone Immediate Rel Tab) 10 mg Q6 PRN PO 04/03/16 13:15 04/17/16 13:14 04/07/16 14:26 10 MG Fluticasone/ Vilanterol (Breo Ellipta 100-25 Mcg/Inh) 2 puffs BID INH 04/04/16 21:00 05/04/16 20:59 04/08/16 07:28 2 PUFFS Ioversol 100 ml 100 ml UD PRN IV 04/04/16 15:00 04/08/16 14:59 Iron Sucrose/ Sodium Chloride (Venofer Inj/Nss 100ml) 110 ml @ 420 mls/hr DAILY@0900 IV 04/06/16 09:00 04/10/16 12:00 04/08/16 09:00 420 MLS/HR Hydromorphone HCl (Dilaudid Tab) 2 mg Q6H PRN PO 04/06/16 13:15 04/20/16 13:14 04/08/16 08:59 2 MG Impression (1) Hematuria (2) Bilateral flank pain (3) Anemia (4) PTSD (post-traumatic stress disorder) (5) Asthma (6) Postconcussive syndrome Patient admitted to the hospital for evaluation of 16 day h/o gross hematuria with bilateral flank pain radiating to the groin. Abdominal CT revealed nonobstructing kidney stones. There was no cyst or mass. Renal duplex negative for renal artery compression or stenosis. Renal veins patent bilaterally. Cystoscopy 03/22 was negative for bladder lesion. Urine cytology was negative. Urine culture has been negative for infection. Urine microscopy was negative for RBC casts or crystals. He did have pyuria. Kidney function remains well preserved. Clinical picture does not fit with nephritic syndrome ( PSGN, SLE) due to the absence of RBC casts, peripheral edema, accelerated HTN and worsening kidney function. ARNOLDO is positive (1:160 homogeneous). ESR was 4 and complement levels are normal. This is not consistent with lupus nephritis. Differential diagnosis for hematuria includes thin basement membrane, LPHS, IgA nephropathy, AVM, hypercalcuria and hyperuricosuria. Glomerular hematuria generally would not persist for this many days. There is a clot that was filtered from the urine 2 days ago. 24 hour urine collection has been started. Fungal culture negative. Interesting that catheterized urine sample from yesterday is negative for any evidence of hematuria. IVP negative for pathologic lesions. Plan to discharge home today. Follow up in the nephrology clinic will be arranged within the next week to follow up pending 24 hour urine studies. After discussion with Dr. Martinez today, it seems the best course would be to pursue second opinion evaluation at [facility] or [facility] with consideration for kidney biopsy at their facility. Recommendations -- Alpha-galactosidase activity level pending -- Complete IV iron infusions for HOMERO today -- Complete 24 hour urine collection -- Arrange outpatient follow up as above
[2016-04-08 14:57] VITALS: BP 119/73; PULSE 70; TEMP 36.9; O2SAT 97
[2016-04-08 16:55] LABS: PATIENT HEIGHT 185.4 cm
[2016-04-08 17:07] LABS: CALCIUM URINE 5.4 mg/dl; URINE TOTAL PROTEIN 33.4 mg/dl (0-11.9)
[2016-04-08] MEDS: OXYCODONE HCL IR 5 MG TAB (IMMEDIATE RELEASE) PO PRN (17:08)
[2016-04-08 17:34] LABS: URINE TOTAL PROTEIN CALC 273.9 mg/24 hr (0-149.1)
[2016-04-08 17:36] LABS: CREATININE 1.1 mg/dl (0.6-1.4)
[2016-04-08 22:52] VITALS: BP 135/79; PULSE 62; TEMP 37; O2SAT 99
[2016-04-09 06:54] VITALS: BP 120/82; PULSE 54; TEMP 36.5; O2SAT 96
[2016-04-09] MEDS: OXYCODONE/ACETAMINOPHEN 5-325 TAB PO PRN ×2 (07:14→15:53)
[2016-04-09 07:17] LABS: CREATININE 1.2 mg/dl (0.60-1.40)
[2016-04-09] MEDS: FLUTICASONE FUROATE-VILANTEROL 30 PUFFS/INHALER INH INH SCH (09:00)
[2016-04-09] MEDS: IRON SUCROSE INJ 200 MG in SODIUM CHLORIDE 0.9% 100ML 100 ML IV SCH (09:18)
[2016-04-09] MEDS: HYDROmorphone HCL 2 MG TAB PO PRN ×2 (09:18→17:44)
--- NOTE | 2016-04-09 09:30 | Discharge Summary ---
Discharge Summary Date of Service Apr 09, 2016. Discharge Summary Admission Date: Apr 02, 2016 at 13:44 Discharge Date: Apr 09, 2016 Discharge Disposition: Home Principal Diagnosis: gross hematuria Procedures: DOPPLER ULTRASOUND OF THE RENAL ARTERIES CLINICAL HISTORY: Hematuria. Flank pain. COMPARISON STUDY: Abdominal CT dated to. TECHNIQUE: Doppler sonography of the renal arteries was performed to assess renal artery stenosis. Images are reviewed in the transverse and longitudinal planes. FINDINGS: The kidneys appear normal in size and echotexture. Right kidney measures 11.2 cm in length and the left kidney measures 13.1 cm in length. There is no hydronephrosis. On the right, intrarenal arterial resistive indices range from 0.56 to 0.58. Intrarenal arterial waveforms are normal with brisk upstrokes. The right renal arterial waveform is normal, and velocities within the right renal artery measure up to 55 cm/sec. The right renal vein is patent. On the left, intrarenal arterial resistive indices range from 0.56 to 0.60. Intrarenal arterial waveforms are normal with brisk upstrokes. The left renal arterial waveform is normal, and velocities within the left renal artery measure up to 69 cm/sec. The left renal vein is patent. The abdominal aorta is patent. Velocities within the abdominal aorta measure up to 97 cm/s. IMPRESSION: There is no sonographic evidence of renal artery stenosis. Electronically signed by: Compa Ortez M.D. 04/05/2016 2:39 PM Procedures: IVP W/OR W/O TOMOGRAMS CLINICAL HISTORY: Gross hematuria. Kidney stones. COMPARISON STUDY: CT scan dated to 101 FINDINGS: Is a 5 mm mid pole left renal calculus. The punctate calculi described on the prior CT scan within the right kidney are not visualized. The patient was injected with 100 cc of Optiray 300. The 1 minute film reveals prompt bilateral nephrograms. There is prompt bilateral excretion. Single nondilated ureters drain each kidney. No ureteral filling defects are visualized. There are no obstructive changes. No bladder abnormalities are visualized. The request states there is concern over the presence of an arteriovenous malformation. This would likely not be visualized on IVP. IMPRESSION: Left-sided nephrolithiasis. No evidence of obstruction. No uroepithelial lesions are visualized Medication Reconciliation New Medications: Oxycodone HCl (Oxycodone HCl) 5 Mg Tab 5 MG PO TID PRN for severe pain for 14 Days, #42 Sennosides-Docusate Sodium (Senokot S) 1 Tab Tab 1 TAB PO DAILY for Constipation for 14 Days, #14 TAB take when taking pain medication Continued Medications: Acetaminophen (Tylenol) 325 Mg Tab 650 MG PO DAILY PRN for Pain, TAB Albuterol Hfa (Ventolin Hfa) 200 Puffs/45372 Mcg Aers 2-4 PUFFS INH BID, #1 INHALER Albuterol Sulf (Proventil 0.083% 2.5MG/3ML) 2.5 Mg/3 Ml Nebu 2.5 MG INH QID, EA Fluticasone Furoate-Vilanterol (Breo Ellipta) 1 Inh Inh 2 PUFFS INH BID Sertraline (Zoloft) 100 Mg Tab 100 MG PO DAILY, TAB Hospital Course 31M PTSD, asthma, h/o sepsis with CHEKO req [employer] now admitted with recurrent gross hematuria Vital Signs Date Time Temp Pulse Resp B/P Pulse Ox O2 Delivery O2 Flow Rate FiO2 04/09/16 07:44 Room Air 04/09/16 06:54 36.5 54 19 120/82 96 On day of discharge, still with persistent hematuria. Few more hours until 2nd 24-hour urine collection will be completed. Still with b/l flank pain and suprapubic pain with voiding. Otherwise, good appetite. No fevers. Fungal urine culture negative. nad, aox3 eomi perrl s1 s2 rrr ctab no w/r/r abd soft, nt/nd +BS no LE edema 1. Gross hematuria - no recent URI or skin/soft tissues infections - persistent hematuria, of note however is a straight cath urine sample that had no e/o hematuria - IVP without any e/o obstruction, punctate 5mm left renal calculi - no urological intervention would benefit patient at this point - no [facility] on renal US, ARNOLDO positive but complements wnl and unlikely to be normal if it were active lupus - renal function preserved, holding off on biopsy for now - appreciated nephro and urology input. 24-hour urine collection in progress, will f/u with nephrology as outpatient for results along with results of other serologies - will f/u with urology as well - also advised to f/u with Dr. Lee or establish with another primary care physician 2. Asthma - stable - prn nebs - cont breo 3. PTSD - cont zoloft 4. HOMERO with blood loss - low iron levels with low Tsat and ferritin - venofer per nephro 5. Flank pain - unclear etiology - may be related to gross hematuria however with straight cath UA without e/o hematuria, it is unclear if the two are related - on review of pain medication prescriptions on the database, patient seems to consistently have been on pain medications with oxycodone or percocet or tylenol with codeine since may of 2015 - will provide enough pain medications for 2 weeks until he sees his primary care physician who will resume pain management Total Time Spent: Less than 30 minutes This includes examination of the patient, discharge planning, medication reconciliation, and communication with other providers. Discharge Instructions Please refer to the electronic Patient Visit Report (Discharge Instructions) for additional information.
[2016-04-09] MEDS: SERTRALINE HCL 100 MG TAB PO SCH (10:00)
[2016-04-09] MEDS: OXYCODONE HCL IR 5 MG TAB (IMMEDIATE RELEASE) PO PRN (12:53)
[2016-04-09 15:09] VITALS: BP 154/83; PULSE 85; TEMP 36.7; O2SAT 96
[2016-04-09 19:29] VITALS: BP 154/83; PULSE 85; TEMP 36.7; O2SAT 96
[2016-04-14 05:27] LABS: OXALATE 24 HR UR/GRAM CREAT 18.3 mg/g creat (1.6-37.0)
[2016-05-13] MEDS ORDERED: TRAM-10 PO (09:32)
== END 2016-04-09 19:50 | disposition home or self-care (01) | DRG 696 ==
LOC: ENRESERVDT → ENRESERVTM → C.EDC 10:10 → C.MSW 13:44
PROVIDERS: ADMIT Family Medicine; ATTEND Internal Medicine
DX: R31.0 Gross hematuria (principal); E87.1 Hypo-osmolality and hyponatremia; D50.9 Iron deficiency anemia, unspecified; J45.909 Unspecified asthma, uncomplicated; F43.10 Post-traumatic stress disorder, unspecified; Z83.3 Family history of diabetes mellitus; Z88.0 Allergy status to penicillin; N20.0 Calculus of kidney

== ENCOUNTER 2016-04-24 11:12 | Emergency (ER) | payer OTHER ==
[~2016-04-24] VITALS: Ht 185.4 cm; Wt 104.5 kg
[~2016-04-24 11:12] MED LIST changes: +ACET-1311 PO; -OXYC1TAB3 PO; +RXC5 PO
[2016-04-24 11:36] VITALS: TEMP 37; Ht 185.4 cm; Wt 104.5 kg
[2016-04-24] MEDS ORDERED: SODIUM CHLORIDE 0.9% 1000ML 500 ML IV ONE (12:30)
[2016-04-24 12:37] LABS: HEMATOCRIT 38.7 % (42-52); MEAN CELL VOLUME 72.3 fL (80-100); MEAN CORPUSCULAR HEMOGLOBIN 21.9 pg (25-34); MEAN CORPUSCULAR HGB CONC 30.2 g/dl (32-36); MEAN PLATELET VOLUME 9.3 fL (7.4-10.4); PLATELET COUNT 302 K/uL (130-400); RED BLOOD COUNT 5.35 M/uL (4.7-6.1); WHITE BLOOD COUNT 6.25 K/uL (4.8-10.8)
[2016-04-24] MEDS ORDERED: MoRPHine SULFATE 10 MG/ML CARP/VIAL IV STA (12:50)
[2016-04-24] MEDS ORDERED: SODIUM CHLORIDE 0.9% 1000ML 1,000 ML IV STA (12:50)
[2016-04-24] MEDS ORDERED: ONDANSETRON INJ 2 MG/ML 2 ML VIAL ONE (12:53)
[2016-04-24 12:54] LABS: BUN/CREATININE RATIO 15.5 (10-20); CALCIUM 8.9 mg/dl (8.5-10.1); CREATININE 0.97 mg/dl (0.60-1.40)
[2016-04-24 12:59] LABS: MANUAL MICROSCOPIC REQUIRED? YES; URINE APPEARANCE TURBID (CLEAR); URINE BILIRUBIN NEG (NEG); URINE NITRITE NEG (NEG); URINE SPECIFIC GRAVITY 1.025 (1.000-1.030); UROBILINOGEN NEG (NEG)
[2016-04-24] MEDS ORDERED: OPTIRAY 320 IV PRN (13:00)
[2016-04-24 13:01] LABS: REVIEW REQ? NO; URINE COLOR RED
[2016-04-24 13:04] LABS: URINE BACTERIA NEG (NEG); URINE RBC >30 /hpf (0-4); ZZUR CULT IF INDIC CLEAN CATCH NO
--- NOTE | 2016-04-24 14:07 | DIAGNOSTIC IMAGING REPORT ---
ABDOMEN AND PELVIS CT WITH IV CONTRAST CT DOSE: 605.08 mGy.cm HISTORY: Hematuria persistent hematuria TECHNIQUE: Multiaxial CT images of the abdomen and pelvis were performed following the use of intravenous contrast. COMPARISON STUDY: 03/18/2016 FINDINGS: Lung bases are clear. Several nonobstructing calcifications are present bilaterally. These are unchanged. There is no evidence for hydronephrosis. The kidneys enhance uniformly. Liver spleen and pancreas are otherwise unremarkable. Bowel pattern is considered nonobstructive throughout. Bladder is midline. IMPRESSION: 1. Several nonobstructing renal calcifications bilaterally. 2. No change from the prior study. 3. No acute process Electronically signed by: Derik Collier M.D. 04/24/2016 2:06 PM Dictated Date/Time: 04/24/2016 2:04 PM
[2016-04-24] MEDS ORDERED: MoRPHine SULFATE 4 MG/ML 1 ML CARP\\VIAL IV STA (14:46)
[2016-04-24 14:50] VITALS: BP 132/91; PULSE 79; O2SAT 96
[2016-04-24] MEDS ORDERED: OXYC1TAB3 PO (15:07)
--- NOTE | 2016-04-24 17:54 | EMERGENCY ROOM VISIT NOTE ---
History Report prepared by Luz: Viraj Mittal Under the Supervision of: Dr. Vic Espinoza D.O. First contact with patient: 12:35 Chief Complaint: URINARY SYMPTOMS Stated Complaint: SEVERE KIDNEY PAIN/BLOOD IN URINE Nursing Triage Summary: pt report bilat kidney pain has frequent urination and has blood in urine was admitted in mar sx have persisted and now worse. has vomited History of Present Illness The patient is a 31 year old male who presents to the Emergency Room with complaints of urinary symptoms that began a couple of weeks ago. The patient rates his pain a 10/10 in severity. He was admitted into the ED a couple of weeks ago with similar symptoms. They believed that he had a kidney stone. He is supposed to get a kidney biopsy in the future but has not received one yet. He is experiencing burning upon urination and he is urinating blood. His pain radiates from his bilateral flanks into his pelvis. He does not have his appendix, but he still has his gallbladder. Patient denies headache, change in vision, fevers, chest pain, shortness of breath, nausea, vomiting, diarrhea, and melena. He notes that his symptoms have not changed since he was discharged and he has slightly more blood in the urine and when he was discharged and that is why he came in today. He has been following with urology and nephrology here and is scheduled to have a biopsy at [facility] next week. Source of History: patient Onset: a couple of weeks ago Position: other () Symptom Intensity: 10/10 Quality: sharp Timing: worsening Associated Symptoms: + back pain, + urinary symptoms, No SOB, No abdominal pain, No chest pain, No cough, No fevers, No headache, No melena, No nausea, No sorethroat, No vomiting Review of Systems See HPI for pertinent positives & negatives. A total of 10 systems reviewed and were otherwise negative. Past Medical & Surgical Medical Problems: (1) Asthma (2) Postconcussive syndrome (3) PTSD (post-traumatic stress disorder) Family History Diabetes mellitus FH: heart disease FHx: lung disease Hypertension Kidney disease Kidney stones Social History Smoking Status: Never Smoker Marital Status: single Housing Status: lives with family Occupation Status: unemployed Current/Historical Medications Scheduled Albuterol Hfa (Ventolin Hfa), 2-4 PUFFS INH BID Albuterol Sulf (Proventil 0.083% 2.5MG/3ML), 2.5 MG INH QID Fluticasone Furoate-Vilanterol (Breo Ellipta), 2 PUFFS INH BID Sertraline (Zoloft), 100 MG PO DAILY Scheduled PRN Oxycodone Immediate Rel Tab (Roxicodone Ir), 5 MG PO Q6H PRN for Pain Allergies Coded Allergies: Penicillins (Unverified Allergy, Intermediate, ITCHY BLOTCHES, 04/24/16) Physical Exam Vital Signs Date Time Temp Pulse Resp B/P Pulse Ox O2 Delivery O2 Flow Rate FiO2 04/24/16 14:50 79 20 132/91 96 Room Air 04/24/16 13:28 87 20 143/101 96 Room Air 04/24/16 11:36 37.0 93 20 152/98 98 Room Air Physical Exam GENERAL: Sitting up in bed, anxious and disheveled, alert, well nourished, non- toxic EYE EXAM: normal conjunctiva OROPHARYNX: no exudate, no erythema, lips, buccal mucosa, and tongue normal and mucous membranes are moist NECK: supple, no nuchal rigidity, no adenopathy, non-tender LUNGS: Clear to auscultation. Normal chest wall mechanics HEART: no murmurs, S1 normal and S2 normal ABDOMEN: abdomen soft, non-tender, normo-active bowel sounds, no masses, no rebound or guarding. BACK: Back is symmetrical on inspection and there is no deformity, no midline tenderness, mild CVA tenderness. SKIN: no rashes and no bruising UPPER EXTREMITIES: upper extremities are grossly normal. LOWER EXTREMITIES: No pitting edema. NEURO EXAM: Normal sensorium, cranial nerves II-XII grossly intact, normal speech, no gross weakness of arms, no gross weakness of legs. Medical Decision & Procedures ER Provider Diagnostic Interpretation: Xray results per the radiologist and my interpretation. Other results have been interpreted by the radiologist and reviewed by me. ABDOMEN AND PELVIS CT WITH IV CONTRAST CT DOSE: 605.08 mGy.cm HISTORY: Hematuria persistent hematuria TECHNIQUE: Multiaxial CT images of the abdomen and pelvis were performed following the use of intravenous contrast. COMPARISON STUDY: 03/18/2016 FINDINGS: Lung bases are clear. Several nonobstructing calcifications are present bilaterally. These are unchanged. There is no evidence for hydronephrosis. The kidneys enhance uniformly. Liver spleen and pancreas are otherwise unremarkable. Bowel pattern is considered nonobstructive throughout. Bladder is midline. IMPRESSION: 1. Several nonobstructing renal calcifications bilaterally. 2. No change from the prior study. 3. No acute process Electronically signed by: Derik Collier M.D. 04/24/2016 2:06 PM Dictated Date/Time: 04/24/2016 2:04 PM Laboratory Results 04/24/16 12:30 04/24/16 12:30 Test 04/24/16 12:20 04/24/16 12:30 Urine Color RED Urine Appearance TURBID (CLEAR) Urine pH 6.0 (4.5-7.5) Urine Specific [place] 1.025 (1.000-1.030) Urine Protein 2+ (NEG) Urine Glucose (UA) NEG (NEG) Urine Ketones NEG (NEG) Urine Occult Blood 3+ (NEG) Urine Nitrite NEG (NEG) Urine Bilirubin NEG (NEG) Urine Urobilinogen NEG (NEG) Urine Leukocyte Esterase NEG (NEG) Urine RBC >30 /hpf (0-4) Urine WBC 5-10 /hpf (0-5) Urine Epithelial Cells 5-10 /lpf (0-5) Urine Bacteria NEG (NEG) Red Blood Count 5.35 M/uL (4.7-6.1) Mean Corpuscular Volume 72.3 fL (80-100) Mean Corpuscular Hemoglobin 21.9 pg (25-34) Mean Corpuscular Hemoglobin Concent 30.2 g/dl (32-36) RDW Standard Deviation 63.5 fL (36.4-46.3) RDW Coefficient of Variation 25.2 % (11.5-14.5) Mean Platelet Volume 9.3 fL (7.4-10.4) Anion Gap 11.0 mmol/L (3-11) Est Creatinine Clear Calc Drug Dose 137.5 ml/min Estimated GFR () 118.4 Estimated GFR (Non- 102.2 BUN/Creatinine Ratio 15.5 (10-20) Calcium Level 8.9 mg/dl (8.5-10.1) Total Bilirubin 0.8 mg/dl (0.2-1) Direct Bilirubin 0.2 mg/dl (0-0.2) Aspartate Amino Transf (AST/SGOT) 16 U/L (15-37) Alanine Aminotransferase (ALT/SGPT) 47 U/L (12-78) Alkaline Phosphatase 78 U/L (45-117) Total Protein 7.7 gm/dl (6.4-8.2) Albumin 4.1 gm/dl (3.4-5.0) Lipase 246 U/L (73-393) Laboratory results per my review. Medications Administered Medications (Trade) Dose Ordered Sig/Reena Route Start Time Stop Time Status Last Admin Dose Admin Sodium Chloride (Nss 1000ml) 1,000 ml @ 999 mls/hr Q1H1M STAT IV 04/24/16 12:50 04/24/16 13:50 DC 04/24/16 13:01 999 MLS/HR Morphine Sulfate (MoRPHine SULFATE INJ) 6 mg NOW STAT IV 04/24/16 12:50 04/24/16 12:51 DC 04/24/16 13:01 6 MG Ondansetron HCl (Zofran Inj) 4 mg STK-MED ONCE .ROUTE 04/24/16 12:53 04/24/16 12:57 DC 04/24/16 13:00 4 MG Morphine Sulfate (MoRPHine SULFATE INJ) 4 mg NOW STAT IV 04/24/16 14:46 04/24/16 14:47 DC 04/24/16 14:56 4 MG ED Course ED COURSE: Vital signs were reviewed and showed hypertension. The patients medical record was reviewed The above diagnostic studies were performed and reviewed. ED treatments and interventions as stated above. 1230: Sodium Chloride 500 ml @ 999 mls/hr IV 1235: The patient was evaluated in room B5. A complete history and physical examination was performed. 1250: Ordered Morphine Sulfate 6 mg IV, Sodium Chloride 1000 ml @ 999 mls/hr IV 1253: Zofran Inj 4 mg .ROUTE 1441: His pain has worsened. 1446: Ordered Morphine Sulfate 4 mg IV 1500: At this time, I spoke with Dr. Barker of Nephrology. The patient had an extensive work up for hematuria. We are unsure of the source. His workups were unremarkable. He has a normal creatinine. He should follow up as out patient unless he needs pain control before then. I offered admission to the patient, he declined. 1520: Upon reevaluation, the patient is resting.I discussed my findings with the patient and he understands and agrees with the treatment plan. The patient remained stable while under my care. The patient appeared well at the time of discharge. Medical Decision Differential diagnoses includes but is not limited to gastritis, peptic ulcer disease, GERD, gallbladder disease, pancreatitis, small bowel obstruction, acute coronary syndrome, pericarditis, ischemic bowel, irritable bowel disease, irritable bowel syndrome, appendicitis, diverticulitis, malignancy, hernia, urinary tract infection, torsion, perforation, trauma, infectious. Patient is a 31-year-old male who presents the ER for bilateral lower back pain associated with hematuria which has been present since his last admission at the end of March. Patient was admitted and evaluated by nephrology and urology. He is still following with nephrology as an outpatient so than this past Monday. Patient notes he presents today as the blood in his urine has slightly worsened. Labs show no significant leukocytosis or anemia. BMP along with LFTs, bilirubin and lipase was unremarkable. UA shows no signs of infection but greater than 30 red cells with the accompanying 5-10 white cells has expected with that many red cells. I discussed this case following a negative CT of the abdomen and pelvis with nephrology. The resource specialist teacher is well aware of this patient and notes that if the gentleman needs pain control he should be admitted but from a medical workup he needs a biopsy and this can be done as an outpatient with his normal creatinine. Following this I discussed this with the patient and he preferred to be discharged and worked up as an outpatient. He is discharged with OxyIR instructed to continue following up with nephrology and urology. He has had multiple testing done here and both nephrology and urology appear to believe that he needs a biopsy to finally complete his workup. As nephrology is the expert I felt it was reasonable to discharge him as patient refused admission to have him follow-up with them as an outpatient. Discussed with Pt concerning signs and symptoms to watch out for. Pt was instructed to follow up with their PCP and discussed with the patient their option to return to the ED at anytime for persistent or worsening symptoms. The appropriate anticipatory guidance and out-patient management, including indications for return to the emergency department, were explained at length to the patient and understood. Consults Time Called: 1515 Consulting Physician: Dr. Barker - Nephrology Returned Call: [phone] We discussed the patient's case. Impression Primary Impression: Hematuria Additional Impression: Back pain Scribe Attestation The scribe's documentation has been prepared under my direction and personally reviewed by me in its entirety. I confirm that the note above accurately reflects all work, treatment, procedures, and medical decision making performed by me. Departure Information Dispostion Home / Self-Care Prescriptions Oxycodone Immediate Rel Tab (ROXICODONE IR) 5 Mg Tab 5 MG PO Q6H Y for Pain, #15 TAB Prov: EspinozaVic, DO 04/24/16 Referrals Michael Lee D.O. (PCP) Boris Barker M.D. Forms HOME CARE DOCUMENTATION FORM, IMPORTANT VISIT INFORMATION Patient Instructions ED Hematuria, My [facility] Additional Instructions Please follow up with your primary care doctor with in the next 24 hours. Any worsening of your symptoms, please return to the ED immediately. This includes fevers greater than 100.4, worsening pain, passing out, chest pain or shortness breath, or any other concerning signs or symptoms from your standpoint. Please make sure you follow up with urology and nephrology as previously set up following your discharge. You were given medications during this visit that will inhibit your ability to drive, operate machinery and work. Please do NOT drive, operate machinery or work for the next 12hrs. You were also given a prescription for a narcotic/oxy ir. While taking this medication you should also not drive, operate machinery and or work. Problem Qualifiers Additional Impression: Back pain Back pain location: low back pain Chronicity: acute Back pain laterality: bilateral Sciatica presence: without sciatica Qualified Codes: M54.5 - Low back pain
[2016-05-13] MEDS ORDERED: TRAM-10 PO (09:32)
== END 2016-04-24 15:10 | disposition home or self-care (01) ==
LOC: C.EDB 11:20
DX: R31.9 Hematuria, unspecified (principal); M54.5 Low back pain; J45.909 Unspecified asthma, uncomplicated; F07.81 Postconcussional syndrome; F43.10 Post-traumatic stress disorder, unspecified; Z83.3 Family history of diabetes mellitus; Z82.49 Family history of ischemic heart disease and other diseases of the circulatory system; Z83.6 Family history of other diseases of the respiratory system; Z84.1 Family history of disorders of kidney and ureter; Z79.899 Other long term (current) drug therapy

== ENCOUNTER 2016-05-09 10:04 | Observation (INO) | payer OTHER ==
[~2016-05-09] VITALS: Ht 185.4 cm; Wt 106.1 kg
[~2016-05-09 10:04] MED LIST changes: -ACET-1311 PO; +OXYC1TAB3 PO; -RXC5 PO
[2016-05-09] MEDS ORDERED: FLUT1INH INH (10:17)
[2016-05-09] MEDS ORDERED: ALBINS/ INH (10:17)
[2016-05-09] MEDS ORDERED: SERT-234 PO (10:17)
[2016-05-09] MEDS ORDERED: VNTHFA/IN INH (10:17)
[2016-05-09] MEDS ORDERED: HYDROmorphone INJ 1 MG/ML SYR IV STA ×3 (10:58→13:13)
[2016-05-09] MEDS ORDERED: SODIUM CHLORIDE 0.9% 1000ML 1,000 ML IV STA (10:58)
--- NOTE | 2016-05-09 11:04 | EMERGENCY ROOM VISIT NOTE ---
History First contact with patient: 10:22 Chief Complaint: URINARY SYMPTOMS Stated Complaint: SEVERE KIDNEY PAIN, SEVERE BLEEDING WHEN URINATING History of Present Illness The patient is a 31 year old male who presents to the Emergency Room with complaints of bilateral flank pain and hematuria. The patient has had ongoing bilateral flank pain and gross hematuria. He has been thoroughly evaluated for similar in the past without diagnosis. He has seen urology and nephrology. He recently saw a specialist at [facility] last week for a renal biopsy. He states that the procedure was not performed because of the hematuria. The patient states the pain worsened last night. He rates his discomfort a 10/10. He denies any fevers. He denies any chest pain or trouble breathing. He sees Dr. Feng. Review of Systems A 10 system review of systems was completed with positives and pertinent negatives listed in the HPI. Past Medical/Surgical History Medical Problems: (1) Asthma (2) Bilateral flank pain (3) Postconcussive syndrome (4) PTSD (post-traumatic stress disorder) Family History Diabetes mellitus FH: heart disease FHx: lung disease Hypertension Kidney disease Kidney stones Social History Smoking Status: Never Smoker Marital Status: single Housing Status: lives with family Occupation Status: unemployed Current/Historical Medications Scheduled Albuterol Hfa (Ventolin Hfa), 2-4 PUFFS INH BID Albuterol Sulf (Proventil 0.083% 2.5MG/3ML), 2.5 MG INH QID Fluticasone Furoate-Vilanterol (Breo Ellipta), 2 PUFFS INH BID Sertraline (Zoloft), 100 MG PO DAILY Allergies Coded Allergies: Penicillins (Unverified Allergy, Intermediate, ITCHY BLOTCHES, 05/09/16) Red Dye (Unverified Allergy, Unknown, HIVES, 05/09/16) Physical Exam Vital Signs Date Time Temp Pulse Resp B/P Pulse Ox O2 Delivery O2 Flow Rate FiO2 05/09/16 13:48 88 16 125/93 95 Room Air 05/09/16 11:20 97 16 149/97 96 Room Air 05/09/16 10:08 37.0 104 20 176/117 100 Room Air Physical Exam VITALS: Vitals are noted on the nurse's note and reviewed by myself. Vital signs stable. The patient is afebrile. GENERAL: This is a 31-year-old male, in no acute distress, nondiaphoretic, well- developed well-nourished. SKIN: The skin was without rashes, erythema, edema, or bruising. There is no tenting of the skin. Capillary reflex less than 2 seconds. HEAD: Normocephalic atraumatic. EARS: The external ears are normal in appearance. EYES: Pupils equal round and reactive to light and accommodation. Conjunctivae without injection, sclerae without icterus. Extraocular movements intact. NOSE: Patent, turbinates without inflammation or discharge. MOUTH: Mucous membranes moist. Tonsils are not enlarged. Pharynx without erythema or exudate. Uvula midline. Airway patent. Tongue does not deviate. NECK: Supple without nuchal rigidity. No lymphadenopathy. No thyromegaly. Cervical spine is nontender. No JVD. HEART: Regular rate and rhythm without murmurs gallops or rubs. LUNGS: Clear to auscultation bilaterally without wheezes, rales or rhonchi. No retractions or accessory muscle use. ABDOMEN: Positive bowel sounds x 4. Soft, diffuse abdominal tenderness, without masses or organomegaly. MUSCULOSKELETAL: No muscle atrophy, erythema, or edema noted. Full range of motion in all extremities. Normal gait. Strength 5/5 throughout. NEURO: Patient was alert and oriented to person place and time. No focal neurological deficits. Medical Decision & Procedures ER Provider Diagnostic Interpretation: KUB CLINICAL HISTORY: flank pain pain COMPARISON STUDY: 04/04/2016 FINDINGS: 4 mm calcification medial left kidney unchanged from the prior study. No significant paravertebral calcifications. Pelvic vascular calcifications on the left unchanged. Nonobstructive bowel pattern. IMPRESSION: 1. 4 mm nonobstructing calcification medial left kidney. 2. No change from the prior study. 3. Nonobstructive bowel pattern. Laboratory Results 05/09/16 11:10 Red Blood Count 5.10, Mean Corpuscular Volume 74.3, Mean Corpuscular Hemoglobin 23.1, Mean Corpuscular Hemoglobin Concent 31.1, Mean Platelet Volume 8.9, Neutrophils (%) (Auto) 56.9, Lymphocytes (%) (Auto) 28.4, Monocytes (%) (Auto) 7.2, Eosinophils (%) (Auto) 6.3, Basophils (%) (Auto) 0.7, Neutrophils # (Auto) 4.16, Lymphocytes # (Auto) 2.08, Monocytes # (Auto) 0.53, Eosinophils # (Auto) 0.46, Basophils # (Auto) 0.05 05/09/16 11:10 Test 05/09/16 10:26 05/09/16 11:10 Urine Color RED Urine Appearance CLOUDY (CLEAR) Urine pH 6.0 (4.5-7.5) Urine Specific [place] >= 1.030 (1.000-1.030) Urine Protein 2+ (NEG) Urine Glucose (UA) NEG (NEG) Urine Ketones NEG (NEG) Urine Occult Blood 3+ (NEG) Urine Nitrite NEG (NEG) Urine Bilirubin NEG (NEG) Urine Urobilinogen NEG (NEG) Urine Leukocyte Esterase NEG (NEG) Urine RBC >30 /hpf (0-4) Urine WBC 1-5 /hpf (0-5) Urine Epithelial Cells 0-5 /lpf (0-5) Urine Bacteria NEG (NEG) White Blood Count 7.32 K/uL (4.8-10.8) Red Blood Count 5.10 M/uL (4.7-6.1) Hemoglobin 11.8 g/dL (14.0-18.0) Hematocrit 37.9 % (42-52) Mean Corpuscular Volume 74.3 fL (80-100) Mean Corpuscular Hemoglobin 23.1 pg (25-34) Mean Corpuscular Hemoglobin Concent 31.1 g/dl (32-36) Platelet Count 257 K/uL (130-400) Mean Platelet Volume 8.9 fL (7.4-10.4) Neutrophils (%) (Auto) 56.9 % Lymphocytes (%) (Auto) 28.4 % Monocytes (%) (Auto) 7.2 % Eosinophils (%) (Auto) 6.3 % Basophils (%) (Auto) 0.7 % Neutrophils # (Auto) 4.16 K/uL (1.4-6.5) Lymphocytes # (Auto) 2.08 K/uL (1.2-3.4) Monocytes # (Auto) 0.53 K/uL (0.11-0.59) Eosinophils # (Auto) 0.46 K/uL (0-0.5) Basophils # (Auto) 0.05 K/uL (0-0.2) RDW Standard Deviation 64.4 fL (36.4-46.3) RDW Coefficient of Variation 24.0 % (11.5-14.5) Immature Granulocyte % (Auto) 0.5 % Immature Granulocyte # (Auto) 0.04 K/uL (0.00-0.02) Anisocytosis PRESENT Microcytosis PRESENT Prothrombin Time 11.0 SECONDS (9.0-12.0) Prothromb Time International Ratio 1.0 (0.9-1.1) Activated Partial Thromboplast Time 24.6 SECONDS (21.0-31.0) Partial Thromboplastin Ratio 0.9 Anion Gap 13.0 mmol/L (3-11) Est Creatinine Clear Calc Drug Dose 103.3 ml/min Estimated GFR () 83.1 Estimated GFR (Non- 71.7 BUN/Creatinine Ratio 8.2 (10-20) Calcium Level 8.2 mg/dl (8.5-10.1) Total Bilirubin 0.9 mg/dl (0.2-1) Aspartate Amino Transf (AST/SGOT) 35 U/L (15-37) Alanine Aminotransferase (ALT/SGPT) 63 U/L (12-78) Alkaline Phosphatase 79 U/L (45-117) Total Creatine Kinase 72 U/L (39-308) Total Protein 7.4 gm/dl (6.4-8.2) Albumin 4.0 gm/dl (3.4-5.0) Globulin 3.4 gm/dl (2.5-4.0) Albumin/Globulin Ratio 1.2 (0.9-2) Lipase 128 U/L (73-393) Medications Administered Medications (Trade) Dose Ordered Sig/Reena Route Start Time Stop Time Status Last Admin Dose Admin Sodium Chloride (Nss 1000ml) 1,000 ml @ 999 mls/hr Q1H1M STAT IV 05/09/16 10:58 05/09/16 11:58 DC 05/09/16 10:58 999 MLS/HR Hydromorphone HCl (Dilaudid Inj) 1 mg NOW STAT IV 05/09/16 10:58 05/09/16 11:00 DC 05/09/16 11:20 1 MG Hydromorphone HCl (Dilaudid Inj) 1 mg NOW STAT IV 05/09/16 12:19 05/09/16 12:20 DC 05/09/16 12:32 1 MG Hydromorphone HCl 1 mg 1 mg NOW STAT IV 05/09/16 13:13 05/09/16 13:14 DC 05/09/16 13:47 1 MG Sodium Chloride (Nss 1000ml) 1,000 ml @ 150 mls/hr Q6H40M IV 05/09/16 14:30 06/08/16 14:29 05/09/16 16:31 150 MLS/HR ED Course The patient was seen and examined. Previous visits were reviewed. The patient does not have a fever or leukocytosis. He does have a stable anemia. There is no significant electrolyte abnormality. Lipase was not elevated. INR was 1.0. Urinalysis reveals hematuria and proteinuria. KUB is similar in appearance to previous The patient was hydrated with normal saline He was given a total of 3 mg IV Dilaudid The patient presents to the emergency department with chronic bilateral flank pain and gross hematuria. The patient has had extensive evaluation without diagnosis. The patient stated his pain persisted and was not controlled at home last night and today. The patient would benefit from further evaluation and management in the hospital. The case was discussed with the [facility] hospitalist service and they will evaluate the patient. The case was discussed with Dr. Triplett who agrees with the assessment and treatment plan Medical Decision DIFFERENTIAL DIAGNOSIS: Hepatitis, cholecystitis, cholangitis, biliary colic, pancreatitis, pneumonia, subdiaphragmatic abscess, appendicitis, inguinal hernia , nephrolithiasis, inflammatory bowel disease, mesenteric adenitis, peptic ulcer disease, GERD, gastritis, pancreatitis, myocardial infarction, pericarditis, ruptured aortic aneurysm, appendicitis, gastroenteritis, bowel obstruction, splenic infarct, diverticulitis, mesenteric ischemia, metabolic, peritonitis, among others. Impression Primary Impression: Bilateral flank pain Additional Impression: Hematuria Departure Information Referrals Michael Lee D.O. (PCP) Patient Instructions My [facility] Problem Qualifiers
[2016-05-09 11:23] LABS: BASO % 0.7 %; BASO ABS # 0.05 K/uL (0-0.2); EOS % 6.3 %; HEMATOCRIT 37.9 % (42-52); IG% 0.5 %; LYMPH % 28.4 %; LYMPH ABS # 2.08 K/uL (1.2-3.4); MEAN CELL VOLUME 74.3 fL (80-100); MEAN CORPUSCULAR HEMOGLOBIN 23.1 pg (25-34); MEAN CORPUSCULAR HGB CONC 31.1 g/dl (32-36); MEAN PLATELET VOLUME 8.9 fL (7.4-10.4); MONO % 7.2 %; NEUT % 56.9 %; PLATELET COUNT 257 K/uL (130-400); WHITE BLOOD COUNT 7.32 K/uL (4.8-10.8)
[2016-05-09 11:27] LABS: MANUAL MICROSCOPIC REQUIRED? YES; URINE APPEARANCE CLOUDY (CLEAR); URINE BILIRUBIN NEG (NEG); URINE COLOR RED; URINE NITRITE NEG (NEG); URINE SPECIFIC GRAVITY >= 1.030 (1.000-1.030); UROBILINOGEN NEG (NEG)
[2016-05-09 11:30] LABS: REVIEW REQ? NO
[2016-05-09 11:35] LABS: PARTIAL THROMBOPLASTIN RATIO 0.9
[2016-05-09 11:40] LABS: URINE RBC >30 /hpf (0-4)
[2016-05-09 11:41] LABS: BUN/CREATININE RATIO 8.2 (10-20); CALCIUM 8.2 mg/dl (8.5-10.1); CREATININE 1.3 mg/dl (0.60-1.40); POTASSIUM 3.5 mmol/L (3.5-5.1)
[2016-05-09 11:42] LABS: URINE BACTERIA NEG (NEG)
[2016-05-09 11:43] LABS: ALB/GLOB RATIO 1.2 (0.9-2)
[2016-05-09 11:43] LABS: ZZUR CULT IF INDIC CLEAN CATCH NO
[2016-05-09 11:53] LABS: ANISOCYTOSIS PRESENT; COMPLETE YES; MICROCYTOSIS PRESENT
--- NOTE | 2016-05-09 11:53 | DIAGNOSTIC IMAGING REPORT ---
KUB CLINICAL HISTORY: flank pain pain COMPARISON STUDY: 04/04/2016 FINDINGS: 4 mm calcification medial left kidney unchanged from the prior study. No significant paravertebral calcifications. Pelvic vascular calcifications on the left unchanged. Nonobstructive bowel pattern. IMPRESSION: 1. 4 mm nonobstructing calcification medial left kidney. 2. No change from the prior study. 3. Nonobstructive bowel pattern. Electronically signed by: Derik Collier M.D. 05/09/2016 11:52 AM Dictated Date/Time: 05/09/2016 11:49 AM
[2016-05-09] MEDS ORDERED: MAGNESIUM HYDROXIDE SUSP 30 ML UDC PO PRN (14:30)
[2016-05-09] MEDS ORDERED: ALUMINUM/MAGNESIUM/SIMETH (MAALOX MAX) 30 ML UDC PO PRN (14:30)
[2016-05-09] MEDS ORDERED: ACETAMINOPHEN 325 MG TAB PO PRN (14:30)
[2016-05-09] MEDS ORDERED: ALBUTEROL HFA 8 GM INHALER INH PRN (14:30)
[2016-05-09] MEDS ORDERED: POLYETHYLENE (MIRALAX) 17 GM PACK PO PRN (14:30)
[2016-05-09] MEDS ORDERED: ONDANSETRON INJ 2 MG/ML 2 ML VIAL IV PRN (14:30)
[2016-05-09] MEDS ORDERED: OPTIRAY 320 IV PRN (14:45)
--- NOTE | 2016-05-09 15:13 | History and Physical ---
History & Physical Date & Time of Service: May 09, 2016 at 14:39 Chief Complaint: Severe Kidney Pain, Severe Bleeding When Urinating Primary Care Physician: Michael Lee D.O. History of Present Illness Source: patient, clinic records, hospital records This is a 31 y/o male with a history of asthma, PTSD and h/o postconcussive syndrome who presented to the ED on 05/09 with severe bilateral flank pain and gross hematuria. The patient has a history of persistent bilateral flank pain and hematuria for the last year and has had extensive workup done by both urology and nephrology without any definitive answers. An outpatient cystoscopy on 03/22/16 was normal. Patient found to have elevated ASO titers as an outpatient. The patient had been referred to nephrology specialist at [facility] in [place] for renal biopsy; however, due to the hematuria, the procedure was not done. The patient was recently admitted to this hospital on April 02 with similar symptoms. The patient presented today after experiencing worsening pain last night prior to arrival. The patient states that when he went to the bathroom last night, his urine was a dark red color and "as thick as molasses." The patient then experienced severe pain in his legs bilaterally during urination which took him to his knees. The patient vomited once after the onset of the pain. The patient denies any nausea and has not vomited since. The patient currently rates his pain as a 9/10 sharp pain in his lower back bilaterally that wraps around his flanks and down into his groin. This pain is exacerbated by urination and standing. The patient is some very minimal relief when sitting or laying down. Patient also notes some wheezing, which he attributes to his asthma. The patient denies fevers, chills, sweats, chest pain, palpitations, claudication, cough, shortness of breath, nausea, urinary retention, paralysis, weakness, numbness and tingling. Past Medical/Surgical History Asthma PTSD History of postconcussive syndrome Family History Asthma Cancer Diabetes mellitus FH: heart disease FHx: lung disease Hypertension Kidney disease Kidney stones Stroke Social History Smoking Status: Never Smoker Smokeless Tobacco Use: No Alcohol Use: none Drug Use: none Marital Status: single Housing status: lives with family (with mother) Occupational Status: unemployed Allergies Coded Allergies: Penicillins (Unverified Allergy, Intermediate, ITCHY BLOTCHES, 05/09/16) Red Dye (Unverified Allergy, Unknown, HIVES, 05/09/16) Home Medications Scheduled Albuterol Hfa (Ventolin Hfa), 2-4 PUFFS INH BID Albuterol Sulf (Proventil 0.083% 2.5MG/3ML), 2.5 MG INH QID Fluticasone Furoate-Vilanterol (Breo Ellipta), 2 PUFFS INH BID Sertraline (Zoloft), 100 MG PO DAILY Review of Systems Constitutional: No chills, No fever, No sweats Eyes: No diplopia, No eye pain, No worsening of vision ENT: No hearing loss, No sore throat, No trouble swallowing Respiratory: + wheezing, No cough, No shortness of breath Cardiovascular: No chest pain, No claudication, No palpitations Abdomen: + pain (bilateral flank pain and lower abdominal pain), + vomiting (1 episode after initial onset of severe pain), No GI bleeding, No constipation, No diarrhea, No nausea Musculoskeletal: No calf pain, No joint pain, No muscle pain Genitourinary - Male: + dysuria (severe pain with urination), + hematuria, No urinary incontinence, No urinary retention Neurologic: No numbness/tingling, No paralysis, No weakness Integumentary: No color change, No itch, No rash Physical Exam Vital Signs Date Time Temp Pulse Resp B/P Pulse Ox O2 Delivery O2 Flow Rate FiO2 05/09/16 13:48 88 16 125/93 95 Room Air 05/09/16 11:20 97 16 149/97 96 Room Air 05/09/16 10:08 37.0 104 20 176/117 100 Room Air General Appearance: WD/WN, + moderate distress (patient appears uncomfortable secondary to pain), + obese Head: normocephalic, atraumatic Eyes: normal inspection, PERRL, EOMI ENT: normal ENT inspection, hearing grossly normal, pharynx normal Neck: supple, no JVD, trachea midline Respiratory/Chest: normal breath sounds, no respiratory distress, + wheezing ( scattered) Cardiovascular: regular rate, rhythm, no gallop, no murmur Abdomen/GI: normal bowel sounds, soft, + tenderness (bilateral flanks and suprapubic area TTP) Back: normal inspection, + left CVA tenderness, + right CVA tenderness Extremities/Musculoskelatal: normal inspection, no calf tenderness, no pedal edema Neurologic/Psych: alert, normal mood/affect, oriented x 3 Skin: normal color, warm/dry, no rash Diagnostics Laboratory Results Results Past 24 Hours Test 05/09/16 10:26 05/09/16 11:10 Range/Units Urine Color RED Urine Appearance CLOUDY CLEAR Urine pH 6.0 4.5-7.5 Urine Specific [place] >= 1.030 1.000-1.030 Urine Protein 2+ NEG Urine Glucose (UA) NEG NEG Urine Ketones NEG NEG Urine Occult Blood 3+ NEG Urine Nitrite NEG NEG Urine Bilirubin NEG NEG Urine Urobilinogen NEG NEG Urine Leukocyte Esterase NEG NEG Urine RBC >30 0-4 /hpf Urine WBC 1-5 0-5 /hpf Urine Epithelial Cells 0-5 0-5 /lpf Urine Bacteria NEG NEG White Blood Count 7.32 4.8-10.8 K/uL Red Blood Count 5.10 4.7-6.1 M/uL Hemoglobin 11.8 14.0-18.0 g/dL Hematocrit 37.9 42-52 % Mean Corpuscular Volume 74.3 80-100 fL Mean Corpuscular Hemoglobin 23.1 25-34 pg Mean Corpuscular Hemoglobin Concent 31.1 32-36 g/dl Platelet Count 257 130-400 K/uL Mean Platelet Volume 8.9 7.4-10.4 fL Neutrophils (%) (Auto) 56.9 % Lymphocytes (%) (Auto) 28.4 % Monocytes (%) (Auto) 7.2 % Eosinophils (%) (Auto) 6.3 % Basophils (%) (Auto) 0.7 % Neutrophils # (Auto) 4.16 1.4-6.5 K/uL Lymphocytes # (Auto) 2.08 1.2-3.4 K/uL Monocytes # (Auto) 0.53 0.11-0.59 K/uL Eosinophils # (Auto) 0.46 0-0.5 K/uL Basophils # (Auto) 0.05 0-0.2 K/uL RDW Standard Deviation 64.4 36.4-46.3 fL RDW Coefficient of Variation 24.0 11.5-14.5 % Immature Granulocyte % (Auto) 0.5 % Immature Granulocyte # (Auto) 0.04 0.00-0.02 K/uL Anisocytosis PRESENT Microcytosis PRESENT Prothrombin Time 11.0 9.0-12.0 SECONDS Prothromb Time International Ratio 1.0 0.9-1.1 Activated Partial Thromboplast Time 24.6 21.0-31.0 SECONDS Partial Thromboplastin Ratio 0.9 Sodium Level 141 136-145 mmol/L Potassium Level 3.5 3.5-5.1 mmol/L Chloride Level 106 98-107 mmol/L Carbon Dioxide Level 22 21-32 mmol/L Anion Gap 13.0 3-11 mmol/L Blood Urea Nitrogen 11 7-18 mg/dl Creatinine 1.30 0.60-1.40 mg/dl Est Creatinine Clear Calc Drug Dose 103.3 ml/min Estimated GFR () 83.1 Estimated GFR (Non- 71.7 BUN/Creatinine Ratio 8.2 10-20 Random Glucose 100 70-99 mg/dl Calcium Level 8.2 8.5-10.1 mg/dl Total Bilirubin 0.9 0.2-1 mg/dl Aspartate Amino Transf (AST/SGOT) 35 15-37 U/L Alanine Aminotransferase (ALT/SGPT) 63 12-78 U/L Alkaline Phosphatase 79 45-117 U/L Total Creatine Kinase 72 39-308 U/L Total Protein 7.4 6.4-8.2 gm/dl Albumin 4.0 3.4-5.0 gm/dl Globulin 3.4 2.5-4.0 gm/dl Albumin/Globulin Ratio 1.2 0.9-2 Lipase 128 73-393 U/L Microbiology Results 05/09/16 Urine Culture, Received Pending Diagnostic Radiology Reviewed the following studies and agree with interpretation as follows: Patient Name: MAIA OBRIEN Unit Number: [id number] Dictated: 05/09/16 114 Transcribed: 05/09/16 114 MS Printed Date/Time: [~ rep prt dt]/[~ rep prt tm] [~ rep ct labl] - [~ rep ct ivnm] [facility] [place] [address] Dictated: 05/09/16 1149 Transcribed: 05/09/16 1149 MS Printed Date/Time: [~ rep prt dt]/[~ rep prt tm] [~ rep ct labl] - [~ rep ct ivnm] Patient: MAIA OBRIEN A Address1: [address] Rec: [id number] Address2: [address] Acct ID: [id number] [facility] Zip: [place] [address] Date: 1985 Sex: M Room/Bed: Ref Phy: Michael Lee D.O. SC: LOGANB Att Phy: Report #: [id number] Kassandra Phy: Michael Lee D.O. Test: KUB Admit Phy: Social Staff Worker: ISABELLA Interpreting Phy: Derik Collier M.D. Diagnosis: SEVERE KIDNEY PAIN, SEVERE BLEEDING WHEN URINATING Ordering Phy: Gertrude Perla PA-C Service Date: 05/09/16 Admit Date: 05/09/16 MNE: [id number] CONF: DICTATED BY: Derik Collier M.D.]] CC: Philippe Triplett, Michael Lara D.O. Royer, Elizabeth A., PA-C Endcc: [~ rep ct add3]] KUB CLINICAL HISTORY: flank pain pain COMPARISON STUDY: 04/04/2016 FINDINGS: 4 mm calcification medial left kidney unchanged from the prior study. No significant paravertebral calcifications. Pelvic vascular calcifications on the left unchanged. Nonobstructive bowel pattern. IMPRESSION: 1. 4 mm nonobstructing calcification medial left kidney. 2. No change from the prior study. 3. Nonobstructive bowel pattern. Electronically signed by: Derik Collier M.D. 05/09/2016 11:52 AM Dictated Date/Time: 05/09/2016 11:49 AM The status of this report is Signed. Draft = Not yet reviewed or approved by Radiologist. Signed = Reviewed and approved by Radiologist. <AttendingPhy></AttendingPhy> <FamilyPhy>Michael Lee D.O.</FamilyPhy> < PrimaryPhy>Michael Lee D.O.</PrimaryPhy> <UnitNumber>[id number]</ UnitNumber> <VisitNumber>[id number]</VisitNumber> <PatientName>MICAHMAIA King</PatientName> <DateOfBirth>1985</DateOfBirth> <Location>C.EDB</Location > <ServiceDate>05/09/16</ServiceDate> <MNE>ESINDI</MNE> <OrderingPhy>Gertrude Perla PA-C</OrderingPhy> <OrderingPhyMNE>f rep ord dr thompson</OrderingPhyMNE > <DictatingPhyMNE>f rep dict dr thompson</DictatingPhyMNE> <CCListMNE>f rep ct josee</ CCListMNE> <AdmittingPhyMNE>f pt admit dr thompson</AdmittingPhyMNE> <AttendingPhyMNE >f pt attend dr thompson</AttendingPhyMNE> <ConsultingPhyMNE>f pt consult dr thompson</ConsultingPhyMNE> <FamilyPhyMNE>f pt fam dr thompson</FamilyPhyMNE> <OtherPhyMNE>f pt other dr thompson</OtherPhyMNE> < PrimaryPhyMNE>f pt prim care dr thompson</PrimaryPhyMNE> <ReferringPhyMNE>f pt referring dr thompson</ReferringPhyMNE> Impression Assessment and Plan 31 y/o male with a history of asthma, PTSD and h/o postconcussive syndrome who presented to the ED on 05/09 with severe bilateral flank pain and gross hematuria. Patient tachycardic and hypertensive on arrival with a heart rate of 104 and BP of 176/117, vital signs otherwise stable, afebrile. Hemoglobin stable at 11.8. No leukocytosis. UA positive for 2+ protein and 3+ blood. Labs otherwise grossly unremarkable. KUB shows 4 mm calcification of medial left kidney that is unchanged from 04/04/16 study. Bilateral flank pain and hematuria--symptoms first began one year ago. Patient has received extensive outpatient workup with no known etiology. Symptoms acutely worse one day prior to arrival -Admit to [facility] for observation -CT abdomen and pelvis with IV contrast only to assess vasculature for possible renal infarct as well as stones -Pain control with Dilaudid 1 mg q3h prn pain -IV fluid hydration with NSS at 150 cc/hr -Consult nephrology, appreciate recs. Patient follows with Dr. Barker. -Consult urology, appreciate recs. Patient follows with Dr. Feng. -Urine culture pending Anemia, likely secondary to acute blood loss--hemoglobin 8-9 in March during last admission. No records prior to determine baseline -Hemoglobin stable at 11.8 on arrival -Continue to monitor Asthma--Patient with wheezes on exam -Duonebs QIDR and q2h prn SOB/wheezing -Continue Breo 2 puffs inh BID and albuterol inhaler q4-6h prn SOB/wheezing PTSD -Continue Zoloft 100 mg PO qd DVT prophylaxis -Hold chemical prophylaxis due to bleeding -NANDINI kelidevin and SCDs Code Status -Level I, FULL RESUSCITATION STATUS This chart was completed in part utilizing [employer] Speech Voice Recognition software. Attempts were made to minimize the grammatical errors, random word insertions, pronoun errors and incomplete sentences. Any formal questions or concerns about the content, text or information contained within the body of this dictation should be directly addressed to the provider for clarification. PA Physician Supervision Note: I interviewed and examined the patient. Discussed with Viry JONES and agree with findings and plan as documented in the note. Any exceptions or clarifications are listed here: None Pt presents with persistent gross hematuria and flank pain failing outpt treatment. Did Recently see [facility] without confirmed diagnosis of issue. Is well known to nephrology and urology here at [facility]. Pt states his pain escalated over last day and that his urine is now as thick as molasses, pain required parenteral pain medication for comfort vitals stable car is regular, CVA is tender L>R I did personally call and discuss this case with Urology PA welding machine operator electron beam and ask about CBI, she stated that would hold on chapa placement in ch of being seem by urology first, will provide IVF, IV pain medication repeat CT of abdomen ( history of stones) and culture urine Documented By: Tab Mendoza Level of Care Med/Surg (observation) Resuscitation Status FULL RESUSCITATION VTE Prophylaxis VTE Risk Assessment Done? Y/N: Yes Risk Level: Moderate Given or contraindicated: T.E.D. Stockings, SCD's
[2016-05-09] MEDS ORDERED: IV FLUIDS COMPLETED PRN (15:30)
[2016-05-09] MEDS ORDERED: HYDROmorphone INJ 0.5 MG/0.5 ML SYR IV PRN (15:30)
[2016-05-09 16:00] VITALS: BP 125/93; PULSE 88; TEMP 37; Ht 185.4 cm; Wt 106.1 kg
[2016-05-09] MEDS: ALBUT/IPRATROP 3MG/0.5MG NEB 3 ML VIAL INH SCH ×2 (16:00→20:04)
[2016-05-09] MEDS: OXYCODONE HCL IR 5 MG TAB (IMMEDIATE RELEASE) PO PRN (16:28)
[2016-05-09] MEDS: SODIUM CHLORIDE 0.9% 1000ML 1,000 ML IV SCH ×2 (16:31→21:34)
--- NOTE | 2016-05-09 17:10 | DIAGNOSTIC IMAGING REPORT ---
CT OF THE ABDOMEN AND PELVIS WITH CONTRAST CLINICAL HISTORY: Bilateral flank pain. Hematuria. COMPARISON STUDY: CT of the abdomen and pelvis April 24, 2016 TECHNIQUE: Following IV administration of 116 mL of Optiray-320, axial images of the abdomen and pelvis were obtained from the lung bases to the proximal femurs. Images were reviewed in the axial, sagittal, and coronal planes. IV contrast was administered without complication. CT DOSE: 748.29 mGy.cm FINDINGS: Lung bases are clear. There is bilateral gynecomastia. A 1.3 cm hypodense right hepatic lobe lesion shown on image 19 of 106 is unchanged since prior exam. The spleen, adrenal glands and pancreas are normal. There are multiple small bilateral renal calculi which measure up to 5 mm. There are no ureteral calculi. There is no hydronephrosis. There are no solid renal lesions. Sensitivity for detection of urothelial lesions is diminished on this exam given lack of delayed phase imaging. The bladder is decompressed and suboptimally assessed. There is no evidence for a bowel obstruction. The appendix is surgically absent. IMPRESSION: 1. Bilateral nephrolithiasis. No ureteral calculi or hydronephrosis. 2. Suboptimal evaluation for urothelial lesions given lack of delayed phase imaging and underdistended bladder. 3. Fatty liver. 4. 1.3 cm hypodense right hepatic lobe lesion. This lesion is unchanged since recent exam but is indeterminate. A follow-up right upper quadrant ultrasound in 6 months is recommended. Electronically signed by: Jose C De Jesus M.D. 05/09/2016 5:09 PM Dictated Date/Time: 05/09/2016 5:02 PM
[2016-05-09] MEDS: HYDROmorphone INJ 1 MG/ML SYR IV PRN ×2 (17:52→21:31)
[2016-05-09 20:05] VITALS: PULSE 73; O2SAT 98
[2016-05-09 23:14] VITALS: BP 139/85; PULSE 84; TEMP 36.7; O2SAT 95
[2016-05-10] VITALS (8 sets, daily range): BP systolic 143–148; BP diastolic 84–89; PULSE 82–97; TEMP 36.6–36.9; O2SAT 94–98
[2016-05-10] MEDS: HYDROmorphone INJ 1 MG/ML SYR IV PRN ×7 (00:45→23:44)
[2016-05-10] MEDS: ALBUT/IPRATROP 3MG/0.5MG NEB 3 ML VIAL INH SCH ×5 (01:21→20:00)
[2016-05-10] MEDS: SODIUM CHLORIDE 0.9% 1000ML 1,000 ML IV SCH ×4 (04:01→23:44)
[2016-05-10] MEDS: [UNRECOGNIZED DRUG - OTHER] SCH ×4 (08:00→23:46)
[2016-05-10] MEDS: SERTRALINE HCL 100 MG TAB PO SCH (09:21)
--- NOTE | 2016-05-10 09:44 | Urology Consultation ---
History General Date of Service: May 10, 2016. Chief Complaint: gross hematuria, back pain Primary Care Physician: Michael Lee D.O. Pt seen a urologist before?: Yes (Dr. Feng, Dr. Noyola) If yes, why?: gross hematuria History of Present Illness 31 yo male presents to [facility] with worsening gross hematuria and back pain. He is known to our service and has been seen both at past inpatient admissions and as an outpatient. He reports intermittent hematuria x 9 months. His urine became dark red over the past 2 days, and has been accompanied by bilateral lower back pain similar to previous occurrences. He reports pain 9/10 this morning. Denies n/v. + dysuria. White count and Cr have been normal. He has been afebrile. Previous outpatient cysto on 03-22 was negative. He was also referred to [facility] for renal bx by nephrology last week. Per the pt, they refused to do a bx. No ureteral stones or hydro seen on CT this admission. Imaging Imaging: CT, KUB Laboratory Last 24 Hours Test 05/09/16 10:26 05/09/16 11:10 05/10/16 04:44 Urine Color RED Urine Appearance CLOUDY Urine pH 6.0 Urine Specific [place] >= 1.030 Urine Protein 2+ Urine Glucose (UA) NEG Urine Ketones NEG Urine Occult Blood 3+ Urine Nitrite NEG Urine Bilirubin NEG Urine Urobilinogen NEG Urine Leukocyte Esterase NEG Urine RBC >30 /hpf Urine WBC 1-5 /hpf Urine Epithelial Cells 0-5 /lpf Urine Bacteria NEG White Blood Count 7.32 K/uL Red Blood Count 5.10 M/uL Hemoglobin 11.8 g/dL Hematocrit 37.9 % Mean Corpuscular Volume 74.3 fL Mean Corpuscular Hemoglobin 23.1 pg Mean Corpuscular Hemoglobin Concent 31.1 g/dl Platelet Count 257 K/uL Mean Platelet Volume 8.9 fL Neutrophils (%) (Auto) 56.9 % Lymphocytes (%) (Auto) 28.4 % Monocytes (%) (Auto) 7.2 % Eosinophils (%) (Auto) 6.3 % Basophils (%) (Auto) 0.7 % Neutrophils # (Auto) 4.16 K/uL Lymphocytes # (Auto) 2.08 K/uL Monocytes # (Auto) 0.53 K/uL Eosinophils # (Auto) 0.46 K/uL Basophils # (Auto) 0.05 K/uL RDW Standard Deviation 64.4 fL RDW Coefficient of Variation 24.0 % Immature Granulocyte % (Auto) 0.5 % Immature Granulocyte # (Auto) 0.04 K/uL Anisocytosis PRESENT Microcytosis PRESENT Prothrombin Time 11.0 SECONDS Prothromb Time International Ratio 1.0 Activated Partial Thromboplast Time 24.6 SECONDS Partial Thromboplastin Ratio 0.9 Sodium Level 141 mmol/L Potassium Level 3.5 mmol/L Chloride Level 106 mmol/L Carbon Dioxide Level 22 mmol/L Anion Gap 13.0 mmol/L Blood Urea Nitrogen 11 mg/dl Creatinine 1.30 mg/dl Est Creatinine Clear Calc Drug Dose 103.3 ml/min Estimated GFR () 83.1 Estimated GFR (Non- 71.7 BUN/Creatinine Ratio 8.2 Random Glucose 100 mg/dl Calcium Level 8.2 mg/dl Total Bilirubin 0.9 mg/dl Aspartate Amino Transf (AST/SGOT) 35 U/L Alanine Aminotransferase (ALT/SGPT) 63 U/L Alkaline Phosphatase 79 U/L Total Creatine Kinase 72 U/L Total Protein 7.4 gm/dl Albumin 4.0 gm/dl Globulin 3.4 gm/dl Albumin/Globulin Ratio 1.2 Lipase 128 U/L Problem List Medical Problems: (1) Anemia Status: Acute (2) Back pain Status: Acute (3) Bilateral flank pain Status: Acute (4) Flank pain Status: Acute (5) Hematuria Status: Acute (6) Hematuria Status: Acute Past History asthma, kidney stones, other (PTSD, post-concussive syndrome) Past Surgical History: lithotripsy, orthopedic surgery, ureteral stent, other Family History Asthma Cancer Diabetes mellitus FH: heart disease FHx: lung disease Hypertension Kidney disease Kidney stones Stroke Social History Hx Tobacco Use In Past Year?: No Smoking: no current use Marital status: single Housing status: lives with family (with mother) Occupation status: unemployed Allergies Coded Allergies: Penicillins (Unverified Allergy, Intermediate, ITCHY BLOTCHES, 05/09/16) Red Dye (Unverified Allergy, Unknown, HIVES, 05/09/16) Medications Home Medications: Home Meds and Scripts Medications Dose Route/Sig Max Daily Dose Days Date Category Proventil 0.083% 2.5MG/3ML (Albuterol Sulf) 2.5 Mg/3 Ml Nebu 2.5 Mg INH QID 03/18/16 Reported Ventolin Hfa (Albuterol) 200 Puffs/45725 Mcg Aers 2-4 Puffs INH BID 03/18/16 Reported Breo Ellipta (Fluticasone Furoate-Vilanterol) 1 Inh Inh 2 Puffs INH BID 03/18/16 Reported Zoloft (Sertraline HCl) 100 Mg Tab 100 Mg PO DAILY 03/18/16 Reported Inpatient Medications: Current Inpatient Medications Medications (Trade) Dose Ordered Sig/Reena Route Start Time Stop Time Status Last Admin Dose Admin Acetaminophen (Tylenol Tab) 650 mg Q4H PRN PO 05/09/16 14:30 06/08/16 14:29 Al Hydrox/Mg Hydrox/Simethicone (Maalox Max Susp) 15 ml Q4H PRN PO 05/09/16 14:30 06/08/16 14:29 Magnesium Hydroxide (Milk Of Magnesia Susp) 30 ml Q6H PRN PO 05/09/16 14:30 06/08/16 14:29 Polyethylene (Miralax Powder Packet) 17 gm DAILY PRN PO 05/09/16 14:30 06/08/16 14:29 Ondansetron HCl (Zofran Inj) 4 mg Q6H PRN IV 05/09/16 14:30 06/08/16 14:29 Albuterol (Ventolin Hfa Inhaler) 2 puffs BID PRN INH 05/09/16 14:30 06/08/16 14:29 Sertraline HCl (Zoloft Tab) 100 mg DAILY PO 05/10/16 09:00 06/09/16 08:59 05/10/16 09:21 100 MG Miscellaneous Information (Order Awaiting Action) 1 ea QS N/A 05/10/16 00:00 06/09/16 00:00 Hydromorphone HCl 1 mg 1 mg Q3H PRN IV 05/09/16 14:30 05/23/16 14:29 05/10/16 08:13 1 MG Sodium Chloride (Nss 1000ml) 1,000 ml @ 150 mls/hr Q6H40M IV 05/09/16 14:30 06/08/16 14:29 05/10/16 04:01 150 MLS/HR Albuterol/ Ipratropium (Duoneb) 3 ml QIDR INH 05/09/16 16:00 06/08/16 15:59 05/10/16 07:41 3 ML Ioversol (Optiray 320) 100 ml UD PRN IV 05/09/16 14:45 05/13/16 14:44 Miscellaneous (Iv Fluids Completed) 1 ea PRN PRN N/A 05/09/16 15:30 05/09/17 15:29 Hydromorphone HCl (Dilaudid Inj) 0.5 mg Q3H PRN IV 05/09/16 15:30 05/23/16 15:29 Oxycodone HCl (Roxicodone Immediate Rel Tab) 10 mg Q6 PRN PO 05/09/16 15:30 05/23/16 15:29 05/09/16 16:28 10 MG Review of Systems Review of Systems Constitutional: No chills, No fever Eyes: No double vision Neurological: No dizzy Endocrine: No excessive thirst Gastrointestinal: No abdominal pain, No nausea, No vomiting Cardiovascular: No chest pain Respiratory: No shortness of breath Skin: No rash Musculoskeletal: + back pain (low back 9/10), + see HPI Male : + blood in urine, + kidney stones, + painful urination Physical Exam Vital Signs: Vital Signs Past 12 Hours Date Time Temp Pulse Resp B/P Pulse Ox O2 Delivery O2 Flow Rate FiO2 05/10/16 07:41 91 16 98 Room Air 05/10/16 07:19 36.6 82 16 143/89 97 Room Air 05/10/16 01:22 89 16 97 Room Air 05/10/16 00:40 Room Air 05/09/16 23:14 36.7 84 16 139/85 95 Room Air Physical Exam: General Appearance: no apparent distress Eyes: bilateral eyes normal inspection ENT: hearing grossly normal Neck: no JVD Respiratory/Chest: no respiratory distress, no accessory muscle use Cardiovascular: no JVD Extremities: normal inspection Neurologic/Psychiatric: alert, normal mood/affect, oriented x 3 Skin: normal color Assessment & Plan Assessment & Plan A/P: Gross hematuria AFVSS. Gross hematuria of uncertain etiology. Suspected as originating from the kidneys. Would avoid chapa and CBI placement for now as bleeding suspected to be originating from the kidneys rather than the bladder. Can offer a repeat cysto as and outpatient, but little more to offer at this time. Will repeat a urine cytology as well. UC&S is pending. Plan of care discussed with Dr. Feng and Dr. Noyola. Thanks for the consult. Will continue to follow along with primary service. Pt seen, still having bilateral flank pain radiating around to abdomen an hematuria out pt work up failed to reveal source of problem will discuss patient with my partners to see if they have any other ideas on further evaluation I reviewed the chart and ct and saw pt . This case is unclear and consideration of pain management should be given until a definitive cause is found
[2016-05-10 10:20] LABS: HEMATOCRIT 35.8 % (42-52); MEAN CELL VOLUME 74.4 fL (80-100); MEAN CORPUSCULAR HEMOGLOBIN 23.1 pg (25-34); MEAN PLATELET VOLUME 8.8 fL (7.4-10.4); PLATELET COUNT 205 K/uL (130-400); RED BLOOD COUNT 4.81 M/uL (4.7-6.1); WHITE BLOOD COUNT 5.48 K/uL (4.8-10.8)
[2016-05-10 10:57] LABS: BUN/CREATININE RATIO 7.1 (10-20); CALCIUM 8.8 mg/dl (8.5-10.1); CREATININE 1.3 mg/dl (0.60-1.40); POTASSIUM 3.5 mmol/L (3.5-5.1)
--- NOTE | 2016-05-10 11:39 | Nephrology Consultation ---
Nephrology Consultation Date & Providers Date of Consultation: May 10, 2016. Primary Care Provider: Michael Lee D.O. Referring Provider: Reason for Consultation Evaluation management for recurrent flank pain and hematuria History of Present Illness Adin is a 31-year-old gentlemen with a history of for of recurrent flank pain and hematuria ppm for last almost 9 months admitted to the hospital with another episode for last few days. Nephrologic consult was requested for further evaluation management. Electronic medical records including labs and imaging are reviewed in detail during patient's visit. Adin has history of for of recurrent gross hematuria and flank pain for last almost 9 months requiring repeated hospital admission. He has been seeing Dr. Barker did extensive workup over last few hospital and office visit all of which came back negative. Was seen by Urology as an outpatient had cystoscopy, urine cytology and IVP, came back negative. Had a CT scan of chest abdomen and pelvis on admission yesterday showing bilateral nephrolithiasis but no ureteral calculi or other pathology. Urinalysis has low grade proteinuria, hematuria but no crystal or pyuria. His has well preserved GFR and baseline creatinine has been 1.1-1.2. Blood pressure has been well controlled, proteinuria low grade. There was concern for possible loin pain hematuria or glomerular pathology such as thin basement membrane disease or IgA nephropathy. He was referred to [facility] for further evaluation with possible renal biopsy. Patient mentioned that he went to [facility] but they refused to do biopsy but unclear why. Currently he continues to have severe bilateral back and flank pain. denies any fever, chills, anorexia, nausea, chest pain or shortness of breath. 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 Has history of posttraumatic stress disorder and asthma. No family history of chronic kidney disease or end-stage renal disease. Allergies Coded Allergies: Penicillins (Unverified Allergy, Intermediate, ITCHY BLOTCHES, 05/09/16) Red Dye (Unverified Allergy, Unknown, HIVES, 05/09/16) Inpatient Medications Current Inpatient Medications Medications (Trade) Dose Ordered Sig/Reena Route Start Time Stop Time Status Last Admin Dose Admin Acetaminophen (Tylenol Tab) 650 mg Q4H PRN PO 05/09/16 14:30 06/08/16 14:29 Al Hydrox/Mg Hydrox/Simethicone (Maalox Max Susp) 15 ml Q4H PRN PO 05/09/16 14:30 06/08/16 14:29 Magnesium Hydroxide (Milk Of Magnesia Susp) 30 ml Q6H PRN PO 05/09/16 14:30 06/08/16 14:29 Polyethylene (Miralax Powder Packet) 17 gm DAILY PRN PO 05/09/16 14:30 06/08/16 14:29 Ondansetron HCl (Zofran Inj) 4 mg Q6H PRN IV 05/09/16 14:30 06/08/16 14:29 Albuterol (Ventolin Hfa Inhaler) 2 puffs BID PRN INH 05/09/16 14:30 06/08/16 14:29 Sertraline HCl (Zoloft Tab) 100 mg DAILY PO 05/10/16 09:00 06/09/16 08:59 05/10/16 09:21 100 MG Miscellaneous Information (Order Awaiting Action) 1 ea QS N/A 05/10/16 00:00 06/09/16 00:00 Hydromorphone HCl 1 mg 1 mg Q3H PRN IV 05/09/16 14:30 05/23/16 14:29 05/10/16 11:22 1 MG Sodium Chloride (Nss 1000ml) 1,000 ml @ 150 mls/hr Q6H40M IV 05/09/16 14:30 06/08/16 14:29 05/10/16 10:30 150 MLS/HR Albuterol/ Ipratropium (Duoneb) 3 ml QIDR INH 05/09/16 16:00 06/08/16 15:59 05/10/16 07:41 3 ML Ioversol (Optiray 320) 100 ml UD PRN IV 05/09/16 14:45 05/13/16 14:44 Miscellaneous (Iv Fluids Completed) 1 ea PRN PRN N/A 05/09/16 15:30 05/09/17 15:29 Hydromorphone HCl (Dilaudid Inj) 0.5 mg Q3H PRN IV 05/09/16 15:30 05/23/16 15:29 Oxycodone HCl (Roxicodone Immediate Rel Tab) 10 mg Q6 PRN PO 05/09/16 15:30 05/23/16 15:29 05/09/16 16:28 10 MG Family History Asthma Cancer Diabetes mellitus FH: heart disease FHx: lung disease Hypertension Kidney disease Kidney stones Stroke Social History Smoking Status: Never Smoker Smokeless Tobacco Use: No Alcohol Use: none Drug Use: none Marital Status: single Housing Status: lives with family (with mother) Occupation: unemployed Review of Systems A complete review of systems was performed. Pertinent positives are noted above. All other systems are negative. Physical Exam Date Time Temp Pulse Resp B/P Pulse Ox O2 Delivery O2 Flow Rate FiO2 05/10/16 07:41 91 16 98 Room Air 05/10/16 07:30 Room Air 05/10/16 07:19 36.6 82 16 143/89 97 Room Air 05/10/16 01:22 89 16 97 Room Air 05/10/16 00:40 Room Air 05/09/16 23:14 36.7 84 16 139/85 95 Room Air 05/09/16 20:05 73 16 98 Room Air 05/09/16 16:00 37.0 88 16 125/93 Room Air 05/09/16 13:48 88 16 125/93 95 Room Air GENERAL: Young male, AAA x 3, pleasant, healthy-appearing, not in any distress. HEENT: Atraumatic, normocephalic. NECK: Supple, no JVD, no carotid bruit appreciated. ENT: No sinus tenderness MOUTH and THROAT: Moist oral mucosa, no oral ulcer or pharyngeal erythema RESPIRATORY: Normal breathing efforts, no accessory muscle use, clear to auscultation bilaterally, no wheezes or rales. CARDIOVASCULAR: S1, S2 normal, rate rhythm regular. ABDOMEN: Soft, nontender, positive bowel sound. MUSCULOSKELETAL: positive for bilateral CVA tenderness. No joint swelling, erythema or tenderness. Normal range of motion. SKIN: No skin rash EXTREMITY: No lower extremity edema NEURO: No gross focal neurological deficit, speech fluent. PSYCHIATRY: Normal mood and judgment Laboratory Results Last 24 Hours Test 05/10/16 10:02 White Blood Count 5.48 K/uL Red Blood Count 4.81 M/uL Hemoglobin 11.1 g/dL Hematocrit 35.8 % Mean Corpuscular Volume 74.4 fL Mean Corpuscular Hemoglobin 23.1 pg Mean Corpuscular Hemoglobin Concent 31.0 g/dl RDW Standard Deviation 63.2 fL RDW Coefficient of Variation 23.4 % Platelet Count 205 K/uL Mean Platelet Volume 8.8 fL Sodium Level 140 mmol/L Potassium Level 3.5 mmol/L Chloride Level 106 mmol/L Carbon Dioxide Level 27 mmol/L Anion Gap 7.0 mmol/L Blood Urea Nitrogen 9 mg/dl Creatinine 1.30 mg/dl Est Creatinine Clear Calc Drug Dose 103.3 ml/min Estimated GFR () 83.1 Estimated GFR (Non- 71.7 BUN/Creatinine Ratio 7.1 Random Glucose 110 mg/dl Calcium Level 8.8 mg/dl Impression (1) Bilateral flank pain (2) Hematuria (3) Anemia (4) PTSD (post-traumatic stress disorder) (5) Asthma 31-year-old young male with of bilateral flank pain and recurrent gross hematuria for last almost 9 months, extensive urological and nephrology workup was unremarkable. Recently he was referred to [facility] for further evaluation and biopsy but according to the patient the refused to do biopsy. he was admitted yesterday with another episode of gross hematuria for 3-4 days and flank pain. Urinalysis on admission positive for low grade proteinuria but hematuria no urinary crystal or pathological casts. Has well preserved GFR, renal function at baseline creatinine 1.12-1.3, blood pressure well control. CT abdomen pelvis with bilateral nephrolithiasis but no ureteral calculi. unclear etiology for ongoing hematuria and flank pain, differentials include loin pain hematuria, thin basement membrane disease, IgA nephropathy however these glomerular pathology should not cause significant flank pain. Recommendations --agree with continuing with supportive care --discussed about possible referral to [facility] for further evaluation and management --patient mention patient will discuss with his family and think about it --no other recommendations at this point as extensive workup has already been done except kidney biopsy --Will continue to follow along while inpatient Thank you for allowing me to participate in your patient's care. It was a pleasure to see Tip This chart was completed utilizing [employer] Speech and voice recognition software. Grammatical errors, random word insertions, pronoun errors and incomplete sentences are occasional consequences of this system. Any questions or concerns about the content, text or information contained within the body of this dictation should be addressed directly to the physician for clarification.
[2016-05-10] MEDS: OXYCODONE HCL IR 5 MG TAB (IMMEDIATE RELEASE) PO PRN (16:13)
--- NOTE | 2016-05-10 22:26 | Family Medicine Progress Note ---
Progress Note Date of Service May 10, 2016. Subjective Pt evaluation today including: conversation w/ patient, physical exam Pain: 8/10 PO Intake: low appetite Patient continues to have pain but medicines are helping. Patient review his course. Has had workup by urology and nephrology at [facility] with recenty referral to [facility] for renal biopsy. Ultimately biopsy was not done. The patient is quite upset and feels that [facility] treated him as a drug addict. States that he has a high pain thresshold but abdominal pain can bring him to tears. States that it feels like someone is reaching into him and tearing his guts out. Notes having molasses color urine that has the color or tomato juice. Patient very hopeful that he can get answers. States that he has bypassed more local hospitals because friends told him [facility] would be able to provide him with answers. Constitutional: No chills, No fever Eyes: No redness, No worsening of vision ENT: No hearing loss, No nasal symptoms, No sore throat Respiratory: No cough, No shortness of breath, No sputum, No wheezing Cardiovascular: No chest pain, No edema, No palpitations Abdomen: No constipation, No diarrhea, No nausea, No pain, No vomiting Musculoskeletal: No joint pain, No muscle pain Male : + dysuria, + hematuria, No incontinence, No slowing stream Neurologic: No numbness/tingling, No vertigo, No weakness Psychiatric: + anxiety Heme: No clotting problems, No swollen lymph nodes Endo: No fatigue Skin: No rash All Other Systems: Reviewed and Negative Medications Current Inpatient Medications Medications (Trade) Dose Ordered Sig/Reena Route Start Time Stop Time Status Last Admin Dose Admin Acetaminophen (Tylenol Tab) 650 mg Q4H PRN PO 05/09/16 14:30 06/08/16 14:29 Al Hydrox/Mg Hydrox/Simethicone (Maalox Max Susp) 15 ml Q4H PRN PO 05/09/16 14:30 06/08/16 14:29 Magnesium Hydroxide (Milk Of Magnesia Susp) 30 ml Q6H PRN PO 05/09/16 14:30 06/08/16 14:29 Polyethylene (Miralax Powder Packet) 17 gm DAILY PRN PO 05/09/16 14:30 06/08/16 14:29 Ondansetron HCl (Zofran Inj) 4 mg Q6H PRN IV 05/09/16 14:30 06/08/16 14:29 Albuterol (Ventolin Hfa Inhaler) 2 puffs BID PRN INH 05/09/16 14:30 06/08/16 14:29 Sertraline HCl (Zoloft Tab) 100 mg DAILY PO 05/10/16 09:00 06/09/16 08:59 05/10/16 09:21 100 MG Miscellaneous Information (Order Awaiting Action) 1 ea QS N/A 05/10/16 00:00 06/09/16 00:00 Hydromorphone HCl 1 mg 1 mg Q3H PRN IV 05/09/16 14:30 05/23/16 14:29 05/10/16 18:08 1 MG Sodium Chloride (Nss 1000ml) 1,000 ml @ 150 mls/hr Q6H40M IV 05/09/16 14:30 06/08/16 14:29 05/10/16 16:09 150 MLS/HR Albuterol/ Ipratropium (Duoneb) 3 ml QIDR INH 05/09/16 16:00 06/08/16 15:59 05/10/16 20:00 3 ML Ioversol (Optiray 320) 100 ml UD PRN IV 05/09/16 14:45 05/13/16 14:44 Miscellaneous (Iv Fluids Completed) 1 ea PRN PRN N/A 05/09/16 15:30 05/09/17 15:29 Hydromorphone HCl (Dilaudid Inj) 0.5 mg Q3H PRN IV 05/09/16 15:30 05/23/16 15:29 Oxycodone HCl (Roxicodone Immediate Rel Tab) 10 mg Q6 PRN PO 05/09/16 15:30 05/23/16 15:29 05/10/16 16:13 10 MG Objective Vital Signs Date Time Temp Pulse Resp B/P Pulse Ox O2 Delivery O2 Flow Rate FiO2 05/10/16 20:54 88 16 98 Room Air 05/10/16 16:15 Room Air 05/10/16 16:02 93 16 96 Room Air 05/10/16 14:59 36.9 97 18 147/84 94 Room Air 05/10/16 11:00 93 16 96 Room Air 05/10/16 07:41 91 16 98 Room Air 05/10/16 07:30 Room Air 05/10/16 07:19 36.6 82 16 143/89 97 Room Air 05/10/16 01:22 89 16 97 Room Air 05/10/16 00:40 Room Air 05/09/16 23:14 36.7 84 16 139/85 95 Room Air Physical Exam General Appearance: WD/WN, + moderate distress Eyes: normal inspection, EOMI ENT: normal ENT inspection, hearing grossly normal, pharynx normal Neck: supple, no adenopathy, no JVD Respiratory/Chest: lungs clear, no respiratory distress Cardiovascular: regular rate, rhythm, no gallop, no murmur Abdomen: normal bowel sounds, soft, + tenderness (diffuse abdominal tenderness ; bilateral CVA tenderness) Extremities: non-tender, no pedal edema Neurologic/Psychiatric: alert, oriented x 3, + depressed affect (and anxious affect) Skin: normal color, warm/dry, no rash Lymphatic: no adenopathy Laboratory Results Last 24 Hours Test 05/10/16 10:02 White Blood Count 5.48 K/uL Red Blood Count 4.81 M/uL Hemoglobin 11.1 g/dL Hematocrit 35.8 % Mean Corpuscular Volume 74.4 fL Mean Corpuscular Hemoglobin 23.1 pg Mean Corpuscular Hemoglobin Concent 31.0 g/dl RDW Standard Deviation 63.2 fL RDW Coefficient of Variation 23.4 % Platelet Count 205 K/uL Mean Platelet Volume 8.8 fL Sodium Level 140 mmol/L Potassium Level 3.5 mmol/L Chloride Level 106 mmol/L Carbon Dioxide Level 27 mmol/L Anion Gap 7.0 mmol/L Blood Urea Nitrogen 9 mg/dl Creatinine 1.30 mg/dl Est Creatinine Clear Calc Drug Dose 103.3 ml/min Estimated GFR () 83.1 Estimated GFR (Non- 71.7 BUN/Creatinine Ratio 7.1 Random Glucose 110 mg/dl Calcium Level 8.8 mg/dl Assessment and Plan 31 year old male who presents for intractable abdominal pain and gross hematuria at home. Patient has had recent evaluation from nephrology standpoint. Noted to have ARNOLDO positive titres with subsequent renal biopsy that was deferred for unknown reasons. Patient presents with abnormal urinalysis and CT that has stable findings of bilateral His problem list includes: - Asthma - PTSD - Chronic anemia Bilateral flank pain and hematuria - Previously followed by nephrology and urology at [facility] Was recommended for biopsy at [facility] which was not done Will re-consult nephrology and urology for further recommendations - CT scan is remarkable for bilateral stones without evidence of obstruction - Has had cystoscopy that was grossly unremarkable and urine cytology that was negative - Continue pain management with Dilaudid and IV rehydration - Patient UA remarkable for urine and protein; has had positive ARNOLDO screen; glomerular pathology would require renal biopsy - Urine culture pending - Creatinine remains stable Anemia - Improving, Hb was as low as 8 as far back as 03/2016 - No records prior to 2016 so baseline remains unclear - Daily CBC Asthma - No wheezing on exam today; - Continue Duonebs - Continue home Breo PTSD -Continue Zoloft DVT prophylaxis - NANDINI and SCD - Pharmacological means are contra-indicated Code Status -Level I Disposition - Med/Surg Discharge planning: uncertain Reviewed: Pt Seen/Exam by Me History continues to have pain. pain medication are helping with pain control Constitutional: denies: fever Respiratory: negative: short of breath Cardiovascular: denies chest pain Gastrointestinal/Abdominal: positive: other (flank and back pain +) General Appearance: mild distress Respiratory: lungs clear, no respiratory distress Cardiovascular: regular rate, rhythm Gastrointestinal: normal bowel sounds, non tender, soft Neurologic/Psychiatric: alert, oriented x 3 Skin Characteristics: warm/dry Assessment/Plan I have reviewed the medical record and performed a history and physical examination of this patient today. I have discussed the case with Dr. Flores. The above note reflects my findings, conclusions, and recommendations.
[2016-05-11] VITALS (9 sets, daily range): BP systolic 120–145; BP diastolic 72–93; PULSE 77–104; TEMP 36.6–36.7; O2SAT 92–98
[2016-05-11] MEDS: OXYCODONE HCL IR 5 MG TAB (IMMEDIATE RELEASE) PO PRN ×4 (01:43→23:41)
[2016-05-11] MEDS: HYDROmorphone INJ 1 MG/ML SYR IV PRN ×5 (05:17→22:25)
[2016-05-11] MEDS: SODIUM CHLORIDE 0.9% 1000ML 1,000 ML IV SCH ×3 (06:37→20:24)
[2016-05-11] MEDS: ALBUT/IPRATROP 3MG/0.5MG NEB 3 ML VIAL INH SCH ×4 (07:45→20:10)
[2016-05-11] MEDS: [UNRECOGNIZED DRUG - OTHER] SCH ×3 (08:00→23:39)
[2016-05-11] MEDS ORDERED: LABETALOL HCL 100 MG TAB PO SCH (08:00)
[2016-05-11 08:07] LABS: HEMATOCRIT 35.2 % (42-52); MEAN CELL VOLUME 75.1 fL (80-100); MEAN CORPUSCULAR HEMOGLOBIN 23.5 pg (25-34); MEAN CORPUSCULAR HGB CONC 31.3 g/dl (32-36); MEAN PLATELET VOLUME 8.8 fL (7.4-10.4); PLATELET COUNT 207 K/uL (130-400); RED BLOOD COUNT 4.69 M/uL (4.7-6.1); WHITE BLOOD COUNT 4.99 K/uL (4.8-10.8)
--- NOTE | 2016-05-11 08:07 | Progress Note ---
Subjective Date of Service: May 11, 2016. Subjective Pt evaluation today including: conversation w/ patient, chart review, lab review Pt continues to c/o gross hematuria this morning. "2 shades darker than V8." Some small clots noted in urine strainer this morning. Bilateral lower back pain 9/10 persists this morning. Denies n/v. H&H pending this morning. Problem List Medical Problems: (1) Anemia Status: Acute (2) Back pain Status: Acute (3) Bilateral flank pain Status: Acute (4) Flank pain Status: Acute (5) Hematuria Status: Acute (6) Hematuria Status: Acute Review of Systems Constitutional: No chills, No fever Respiratory: No shortness of breath Cardiac: No chest pain Abdomen: No nausea, No pain, No vomiting Male : + hematuria Heme: + abnormal bleeding/bruising Objective Vital Signs Date Time Temp Pulse Resp B/P Pulse Ox O2 Delivery O2 Flow Rate FiO2 05/11/16 07:46 77 16 98 Room Air 05/10/16 23:50 Room Air 05/10/16 23:08 36.6 83 20 148/87 95 Room Air 05/10/16 20:54 88 16 98 Room Air 05/10/16 16:15 Room Air 05/10/16 16:02 93 16 96 Room Air 05/10/16 14:59 36.9 97 18 147/84 94 Room Air 05/10/16 11:00 93 16 96 Room Air Physical Exam General Appearance: no apparent distress Eyes: normal inspection ENT: hearing grossly normal Neck: no JVD Respiratory/Chest: no respiratory distress, no accessory muscle use Cardiovascular: no JVD Extremities: normal inspection Neurologic/Psychiatric: alert, normal mood/affect, oriented x 3 Skin: normal color Laboratory Results Last 24 Hours Test 05/10/16 10:02 05/11/16 07:50 White Blood Count 5.48 K/uL Red Blood Count 4.81 M/uL Hemoglobin 11.1 g/dL Hematocrit 35.8 % Mean Corpuscular Volume 74.4 fL Mean Corpuscular Hemoglobin 23.1 pg Mean Corpuscular Hemoglobin Concent 31.0 g/dl RDW Standard Deviation 63.2 fL RDW Coefficient of Variation 23.4 % Platelet Count 205 K/uL Mean Platelet Volume 8.8 fL Sodium Level 140 mmol/L Potassium Level 3.5 mmol/L Chloride Level 106 mmol/L Carbon Dioxide Level 27 mmol/L Anion Gap 7.0 mmol/L Blood Urea Nitrogen 9 mg/dl Creatinine 1.30 mg/dl Est Creatinine Clear Calc Drug Dose 103.3 ml/min Estimated GFR () 83.1 Estimated GFR (Non- 71.7 BUN/Creatinine Ratio 7.1 Random Glucose 110 mg/dl Calcium Level 8.8 mg/dl Assessment and Plan A/P: Gross hematuria AFVSS. Gross hematuria persists. UC&S preliminarily negative. Repeat cytology pending. Recommend supportive management with pain control and transfusions PRN. From perspective we can offer a repeat outpatient cysto for further evaluation of hematuria. Uncertain if this would provide any benefit as previous cystos have been negative. I do not feel his small stones are the source for this type of bleeding. No ureteral stones seen on CT. Appreciate nephrology input. Consider referral to [facility]. Will continue to follow along with primary service at this time. ADDENDUM: Discussed with Dr. Feng today. Will plan for inpatient cysto tomorrow in the OR. Plan for bilateral retrogrades, possible bilateral ureteroscopy and stent placement, possible fulguration, possible bladder biopsy. Continued [facility] stay due to: inadequate oral pain control Discharge planning: uncertain
[2016-05-11 08:54] LABS: BUN/CREATININE RATIO 9.3 (10-20); CALCIUM 8.4 mg/dl (8.5-10.1); CREATININE 0.94 mg/dl (0.60-1.40)
[2016-05-11] MEDS: SERTRALINE HCL 100 MG TAB PO SCH (09:03)
--- NOTE | 2016-05-11 10:54 | Nephrology Progress Note ---
Nephrology Progress Note Date of Service May 11, 2016. Chief Complaint F/U for recurrent flank pain and hematuria Subjective Tip was seen and examined in his room this morning. He feels about the same and continues to have severe bilateral flank pain and gross hematuria and he reports few blood clots this morning. blood pressure remained stable, renal function normal creatinine 0.9, electrolyte stable, hemoglobin stable. Review of Systems A complete review of systems was performed. Pertinent positives are noted above. All other systems are negative. Vital Signs Last 8 Hrs Date Time Temp Pulse Resp B/P Pulse Ox O2 Delivery O2 Flow Rate FiO2 05/11/16 07:46 77 16 98 Room Air 05/11/16 07:30 Room Air 05/11/16 07:20 36.7 87 15 120/72 92 Room Air I & O 24-Hour Column 05/11/16 08:00 Intake Total 4225 ml Output Total 2300 ml Balance 1925 ml Last Recorded Weight Weight (Kilograms): 106.100 Physical Exam GENERAL: young male , AAA x 3, pleasant, healthy-appearing, not in any distress. NECK: Supple, no JVD. RESPIRATORY: Normal breathing efforts, no accessory muscle use, clear to auscultation bilaterally, no wheezes or rales. CARDIOVASCULAR: S1, S2 normal, rate rhythm regular. EXTREMITY: No lower extremity edema NEURO: speech fluent. PSYCHIATRY: Normal mood and judgment Family History Asthma Cancer Diabetes mellitus FH: heart disease FHx: lung disease Hypertension Kidney disease Kidney stones Stroke Social History Smokeless Tobacco Use: No Alcohol Use: none Drug Use: none Marital Status: single Housing Status: lives with family (with mother) Occupation: unemployed Laboratory Results Past 24 Hours 05/10/16 10:02 05/11/16 07:50 05/10/16 10:02 Test 05/10/16 10:02 05/11/16 07:50 Red Blood Count 4.81 M/uL (4.7-6.1) 4.69 M/uL (4.7-6.1) Mean Corpuscular Volume 74.4 fL (80-100) 75.1 fL (80-100) Mean Corpuscular Hemoglobin 23.1 pg (25-34) 23.5 pg (25-34) Mean Corpuscular Hemoglobin Concent 31.0 g/dl (32-36) 31.3 g/dl (32-36) RDW Standard Deviation 63.2 fL (36.4-46.3) 63.1 fL (36.4-46.3) RDW Coefficient of Variation 23.4 % (11.5-14.5) 23.2 % (11.5-14.5) Mean Platelet Volume 8.8 fL (7.4-10.4) 8.8 fL (7.4-10.4) Anion Gap 7.0 mmol/L (3-11) Est Creatinine Clear Calc Drug Dose 103.3 ml/min Estimated GFR () 83.1 Estimated GFR (Non- 71.7 BUN/Creatinine Ratio 7.1 (10-20) Calcium Level 8.8 mg/dl (8.5-10.1) Allergies Coded Allergies: Penicillins (Unverified Allergy, Intermediate, ITCHY BLOTCHES, 05/09/16) Red Dye (Unverified Allergy, Unknown, HIVES, 05/09/16) Medications Current Inpatient Medications Medications (Trade) Dose Ordered Sig/Reena Route Start Time Stop Time Status Last Admin Dose Admin Acetaminophen (Tylenol Tab) 650 mg Q4H PRN PO 05/09/16 14:30 06/08/16 14:29 Al Hydrox/Mg Hydrox/Simethicone (Maalox Max Susp) 15 ml Q4H PRN PO 05/09/16 14:30 06/08/16 14:29 Magnesium Hydroxide (Milk Of Magnesia Susp) 30 ml Q6H PRN PO 05/09/16 14:30 06/08/16 14:29 Polyethylene (Miralax Powder Packet) 17 gm DAILY PRN PO 05/09/16 14:30 06/08/16 14:29 Ondansetron HCl (Zofran Inj) 4 mg Q6H PRN IV 05/09/16 14:30 06/08/16 14:29 Albuterol (Ventolin Hfa Inhaler) 2 puffs BID PRN INH 05/09/16 14:30 06/08/16 14:29 Sertraline HCl (Zoloft Tab) 100 mg DAILY PO 05/10/16 09:00 06/09/16 08:59 05/10/16 09:21 100 MG Miscellaneous Information (Order Awaiting Action) 1 ea QS N/A 05/10/16 00:00 06/09/16 00:00 Hydromorphone HCl 1 mg 1 mg Q3H PRN IV 05/09/16 14:30 05/23/16 14:29 05/11/16 05:17 1 MG Sodium Chloride (Nss 1000ml) 1,000 ml @ 150 mls/hr Q6H40M IV 05/09/16 14:30 06/08/16 14:29 05/11/16 06:37 150 MLS/HR Albuterol/ Ipratropium (Duoneb) 3 ml QIDR INH 05/09/16 16:00 06/08/16 15:59 05/11/16 07:45 3 ML Ioversol (Optiray 320) 100 ml UD PRN IV 05/09/16 14:45 05/13/16 14:44 Miscellaneous (Iv Fluids Completed) 1 ea PRN PRN N/A 05/09/16 15:30 05/09/17 15:29 Hydromorphone HCl (Dilaudid Inj) 0.5 mg Q3H PRN IV 05/09/16 15:30 05/23/16 15:29 Oxycodone HCl (Roxicodone Immediate Rel Tab) 10 mg Q6 PRN PO 05/09/16 15:30 05/23/16 15:29 05/11/16 01:43 10 MG Impression (1) Bilateral flank pain (2) Hematuria (3) Anemia (4) PTSD (post-traumatic stress disorder) (5) Asthma 31-year-old young male with of bilateral flank pain and recurrent gross hematuria for last almost 9 months, extensive urological and nephrology workup was unremarkable. Recently he was referred to [facility] for further evaluation and biopsy but according to the patient the refused to do biopsy. he was admitted yesterday with another episode of gross hematuria for 3-4 days and flank pain. Urinalysis on admission positive for low grade proteinuria but hematuria no urinary crystal or pathological casts. Has well preserved GFR, renal function at baseline creatinine 1.12-1.3, blood pressure well control. CT abdomen pelvis with bilateral nephrolithiasis but no ureteral calculi. unclear etiology for ongoing hematuria and flank pain, differentials include loin pain hematuria, thin basement membrane disease, IgA nephropathy however these glomerular pathology should not cause significant flank pain. Recommendations --reviewed the song writer visit report from [facility]. Waste Collector from [facility] commended evaluation by Urology at the [facility] and follow-up with Nephrology after that and if urology evaluation otherwise unremarkable, they will schedule for biopsy. Also discussed to the patient that if patient is not happy with the [facility] can consider a visit to [facility] for further evaluation --if Urology here wants to do any intervention for his nephrolithiasis, that would be fine from nephrology standpoint and however do not feel that that is going to address patient's symptoms. --no other recommendations at this point as extensive workup has already been done except kidney biopsy Will sign off. patient will continue to follow up with Dr. Barker as an outpatient as scheduled. This chart was completed utilizing [employer] Speech and voice recognition software. Grammatical errors, random word insertions, pronoun errors and incomplete sentences are occasional consequences of this system. Any questions or concerns about the content, text or information contained within the body of this dictation should be addressed directly to the physician for clarification.
--- NOTE | 2016-05-11 11:24 | Family Medicine Progress Note ---
Progress Note Date of Service May 11, 2016. Subjective Pt evaluation today including: conversation w/ patient, physical exam, chart review, lab review Pain: 7 Patient continues to complain of pain Dilaudid is helping Continues to feel that he is being labelled as a drug seeker Continues to have hematuria. Notes he is passing clots Constitutional: No chills, No fever, No sweats Eyes: No eye pain, No redness ENT: No hearing loss, No nasal symptoms, No sore throat, No tinnitus Respiratory: No cough, No shortness of breath, No sputum Cardiovascular: No chest pain, No claudication, No palpitations Abdomen: + pain, No diarrhea, No nausea, No vomiting Musculoskeletal: No joint pain, No muscle pain Male : + dysuria, + hematuria, No urinary frequency Neurologic: No numbness/tingling, No vertigo, No weakness Psychiatric: No depression symptoms Heme: No clotting problems, No swollen lymph nodes Skin: No color change, No new/changing skin lesions, No rash Medications Current Inpatient Medications Medications (Trade) Dose Ordered Sig/Reena Route Start Time Stop Time Status Last Admin Dose Admin Acetaminophen (Tylenol Tab) 650 mg Q4H PRN PO 05/09/16 14:30 06/08/16 14:29 Al Hydrox/Mg Hydrox/Simethicone (Maalox Max Susp) 15 ml Q4H PRN PO 05/09/16 14:30 06/08/16 14:29 Magnesium Hydroxide (Milk Of Magnesia Susp) 30 ml Q6H PRN PO 05/09/16 14:30 06/08/16 14:29 Polyethylene (Miralax Powder Packet) 17 gm DAILY PRN PO 05/09/16 14:30 06/08/16 14:29 Ondansetron HCl (Zofran Inj) 4 mg Q6H PRN IV 05/09/16 14:30 06/08/16 14:29 Albuterol (Ventolin Hfa Inhaler) 2 puffs BID PRN INH 05/09/16 14:30 06/08/16 14:29 Sertraline HCl (Zoloft Tab) 100 mg DAILY PO 05/10/16 09:00 06/09/16 08:59 05/11/16 09:03 100 MG Miscellaneous Information (Order Awaiting Action) 1 ea QS N/A 05/10/16 00:00 06/09/16 00:00 Hydromorphone HCl 1 mg 1 mg Q3H PRN IV 05/09/16 14:30 05/23/16 14:29 05/11/16 10:36 1 MG Sodium Chloride (Nss 1000ml) 1,000 ml @ 150 mls/hr Q6H40M IV 05/09/16 14:30 06/08/16 14:29 05/11/16 06:37 150 MLS/HR Albuterol/ Ipratropium (Duoneb) 3 ml QIDR INH 05/09/16 16:00 06/08/16 15:59 05/11/16 07:45 3 ML Ioversol (Optiray 320) 100 ml UD PRN IV 05/09/16 14:45 05/13/16 14:44 Miscellaneous (Iv Fluids Completed) 1 ea PRN PRN N/A 05/09/16 15:30 05/09/17 15:29 Hydromorphone HCl (Dilaudid Inj) 0.5 mg Q3H PRN IV 05/09/16 15:30 05/23/16 15:29 Oxycodone HCl (Roxicodone Immediate Rel Tab) 10 mg Q6 PRN PO 05/09/16 15:30 05/23/16 15:29 05/11/16 09:26 10 MG Objective Vital Signs Date Time Temp Pulse Resp B/P Pulse Ox O2 Delivery O2 Flow Rate FiO2 05/11/16 09:23 104 05/11/16 09:02 142/92 05/11/16 07:46 77 16 98 Room Air 05/11/16 07:30 Room Air 05/11/16 07:20 36.7 87 15 120/72 92 Room Air 05/10/16 23:50 Room Air 05/10/16 23:08 36.6 83 20 148/87 95 Room Air 05/10/16 20:54 88 16 98 Room Air 05/10/16 16:15 Room Air 05/10/16 16:02 93 16 96 Room Air 05/10/16 14:59 36.9 97 18 147/84 94 Room Air Physical Exam General Appearance: WD/WN, + mild distress Eyes: normal inspection, EOMI ENT: normal ENT inspection, hearing grossly normal, pharynx normal, + nasal congestion Neck: supple, no adenopathy, no JVD Respiratory/Chest: lungs clear, no respiratory distress Cardiovascular: regular rate, rhythm, no gallop, no murmur Abdomen: normal bowel sounds, soft, + tenderness (diffuse tenderness including flanks and CVAs) Extremities: non-tender, no pedal edema Neurologic/Psychiatric: alert, normal mood/affect, oriented x 3, + pertinent finding (upset) Skin: normal color, warm/dry, no rash Lymphatic: no adenopathy Assessment and Plan 31 year old male who presents for intractable abdominal pain and gross hematuria at home Currently day 2 of admission. Minimal improvement in pain despite round the clock dilaudid. History is remarkable for positive ARNOLDO positive titres and proteinuria and hematuria with subsequent renal biopsy that was deferred for unknown reasons. Interestingly, very rare that glomerular disease would cause pain. Subsequent question is whether his proteinuria and hematuria are linked to single etiology or both separate etiologies, are urological etiology may be more likely to cause pain. Patient presents with abnormal urinalysis and CT that has stable findings of bilateral stones. His problem list includes: - Asthma - PTSD - Chronic anemia Bilateral flank pain and hematuria - Previously followed by nephrology and urology at [facility] - Patient UA remarkable for urine and protein; has had positive ARNOLDO screen; glomerular pathology would require renal biopsy - Was recommended for biopsy at [facility] which was not done; patient states that physician labelled him as drug seeking - CT scan is remarkable for bilateral stones without evidence of obstruction - Has had cystoscopy that was grossly unremarkable and urine cytology that was negative - Reviewed UA; patient does have elevated urine specific gravity, which is reassuring in that it suggests kidney have good concentrating capabilities despite concern for underlying glomerular disease; patient also has improved Cr , suggesting intact renal function. - Nephrology recommendations appreciated Supportive treatments recommended at this time Ultimately renal biopsy recommended for definitive diagnosis Will arrange for outpatient follow-up - Urology consulted; recommendations appreciated Repeat urine cytology Plan for repeat cystoscopy tomorrow. - Continue pain management with Dilaudid and IV rehydration - Urine culture pending - Creatinine improved to 0.9 today Elevated BP - Patient has had elevated BPs during admission, going to 140/90 systolically - Likely in-part due to anxiety and pain Consider relation to renal disease, though patient has good Cr and overall renal function - Will continue to monitor - Hydralazine 10 mg q4h PRN for sBP > 160 or dBP > 110 Anemia - Stable since admission, remains at 11 today; was as low as 8 as far back as 2016 - No records prior to 2017 so baseline remains unclear - Daily CBC - No indication for transfusion at this time, continue to monitor Asthma - Wheezing on exam today; - Continue Duonebs and Breo PTSD -Continue Zoloft DVT prophylaxis - NANDINI and SCD - Pharmacological means are contra-indicated Code Status -Level I Disposition - Med/Surg - Anticipate Cystoscopy tomorrow Continued [facility] stay due to: other (awaits procedure) Discharge planning: uncertain Reviewed: Pt Seen/Exam by Me History continues to have back pain Constitutional: denies: fever Respiratory: negative: short of breath Cardiovascular: denies chest pain Genitourinary: positive hematuria, positive pain (flank) General Appearance: no apparent distress Respiratory: lungs clear, no respiratory distress Cardiovascular: regular rate, rhythm Gastrointestinal: normal bowel sounds, non tender, soft, other (flank tenderness) Neurologic/Psychiatric: alert, oriented x 3 Skin Characteristics: warm/dry Assessment/Plan I have reviewed the medical record and performed a history and physical examination of this patient today. I have discussed the case with Dr. Flores. The above note reflects my findings, conclusions, and recommendations.
[2016-05-11] MEDS ORDERED: HydrALAZINE HCL 20 MG/ML VIAL IV. PRN (11:30)
--- NOTE | 2016-05-11 13:11 | Medical Student: [facility] ---
Med Student Progress Note Date of Service May 11, 2016. Subjective Pt evaluation today including: conversation w/ patient, lab review, review of studies Pain: 9/10 This is a 31 year old male with a history of flank pain and hematuria who presented to the ED on 05/09 for worsening bilateral flank pain and hematuria. No improvement overnight. Pain is still 9/10. It drops to 7/10 when he takes medication. Patient is still peeing blood "thick as molasses" and red as " tomato juice." Pain gets worse when he urinates and when he stands up. He has been wheezing a little secondary to his asthma. He denies chest pain, palpitations shortness of breath, nausea, vomiting, and pain or blood with defecation. Review of Systems Constitutional: + weight loss, No chills, No fever, No sweats, No weakness Respiratory: + wheezing, No cough, No dyspnea at rest, No dyspnea on exertion, No shortness of breath, No sputum Cardiac: No chest pain, No edema Abdomen: + pain, No constipation, No diarrhea, No nausea, No vomiting Male : + dysuria, + hematuria ("thick as molasses, red as V8 tomator juice") Objective Vital Signs Date Time Temp Pulse Resp B/P Pulse Ox O2 Delivery O2 Flow Rate FiO2 05/11/16 11:08 78 16 98 Room Air 05/11/16 09:23 104 05/11/16 09:02 142/92 05/11/16 07:46 77 16 98 Room Air 05/11/16 07:30 Room Air 05/11/16 07:20 36.7 87 15 120/72 92 Room Air 05/10/16 23:50 Room Air 05/10/16 23:08 36.6 83 20 148/87 95 Room Air 05/10/16 20:54 88 16 98 Room Air 05/10/16 16:15 Room Air 05/10/16 16:02 93 16 96 Room Air 05/10/16 14:59 36.9 97 18 147/84 94 Room Air Physical Exam General Appearance: WD/WN, + moderate distress ENT: hearing grossly normal Neck: supple, no adenopathy, no JVD, no carotid bruits Respiratory/Chest: chest non-tender, normal breath sounds, no respiratory distress, no accessory muscle use, + wheezing Cardiovascular: regular rate, rhythm, no edema, no gallop, no JVD, no murmur Abdomen: normal bowel sounds, non tender, soft, no organomegaly Extremities: no calf tenderness, + pedal edema (+1 bilaterally) Neurologic/Psychiatric: alert, normal mood/affect, oriented x 3 Skin: normal color, warm/dry, no rash Laboratory Results Last 24 Hours Test 05/11/16 07:50 White Blood Count 4.99 K/uL Red Blood Count 4.69 M/uL Hemoglobin 11.0 g/dL Hematocrit 35.2 % Mean Corpuscular Volume 75.1 fL Mean Corpuscular Hemoglobin 23.5 pg Mean Corpuscular Hemoglobin Concent 31.3 g/dl RDW Standard Deviation 63.1 fL RDW Coefficient of Variation 23.2 % Platelet Count 207 K/uL Mean Platelet Volume 8.8 fL Sodium Level 140 mmol/L Potassium Level 4.0 mmol/L Chloride Level 108 mmol/L Carbon Dioxide Level 25 mmol/L Anion Gap 7.0 mmol/L Blood Urea Nitrogen 9 mg/dl Creatinine 0.94 mg/dl Est Creatinine Clear Calc Drug Dose 142.9 ml/min Estimated GFR () 123.0 Estimated GFR (Non- 106.1 BUN/Creatinine Ratio 9.3 Random Glucose 91 mg/dl Calcium Level 8.4 mg/dl Assessment and Plan Assessment and Plan: ASSESSMENT This is a 31 year old male with a history of flank pain and hematuria who presented to the ED on 05/09 for worsening bilateral flank pain and hematuria. Currently on day 2 of his admission with minimal improvement in pain with Dilaudid. His history is significant proteinuria, hematuria, and positive ARNOLDO titres. It would be unusual for glomerular disease to cause pain. This leads to the question of whether his proteinuria and hematuria are being caused by separate problems. Renal biopsy would be needed to rule out glomerular disease. Patient was denied renal biopsy at [facility] due to possiblity of drug seeking. Patient was seen by nephrology who recommended transfer to [facility] for renal biopsy. Patient was seen by urology who plan to do a cystoscopy in the OR tomorrow with bilateral retrogrades and possible stenting. PLAN 1) bilateral flank pain and hematuria -Previously followed by [facility] nephrology and urology - CT scan showed bilateral stones without evidence of obstruction - UA showed elevated urine specific gravity which suggests good kidney function -Nephrology will follow as outpatient. -Urology plans for repeat cystoscopy tomorrow with possible stents. - Continue pain management with Dilaudid and IV rehydration 2) Hypertension -Continue to monitor - Hydralazine 10 mg q4h PRN for sBP > 160 or dBP > 110 3) Anemia - Stable since admission -11 today - Daily CBC - No indication for transfusion at this time. 4) Asthma -Duoneb -Breo 5) PTSD -Zoloft 6) DVT prophylaxis -SCD -pharmacological anticoagulation contraindicated 7) Code -level I Continued [facility] stay due to: other (awaits procedure) Discharge planning: uncertain
[2016-05-12] VITALS (12 sets, daily range): BP systolic 120–142; BP diastolic 70–80; PULSE 74–90; TEMP 36.5–37; O2SAT 92–97
[2016-05-12] MEDS: ALBUT/IPRATROP 3MG/0.5MG NEB 3 ML VIAL INH SCH ×6 (00:41→18:50)
[2016-05-12] MEDS: SODIUM CHLORIDE 0.9% 1000ML 1,000 ML IV SCH ×4 (01:31→21:25)
[2016-05-12] MEDS: HYDROmorphone INJ 1 MG/ML SYR IV PRN ×2 (02:25→08:08)
[2016-05-12] MEDS: OXYCODONE HCL IR 5 MG TAB (IMMEDIATE RELEASE) PO PRN ×2 (06:15→23:31)
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
[2016-05-12 07:46] LABS: MEAN CELL VOLUME 75.2 fL (80-100); MEAN CORPUSCULAR HEMOGLOBIN 22.6 pg (25-34); MEAN PLATELET VOLUME 9.2 fL (7.4-10.4); PLATELET COUNT 216 K/uL (130-400); RED BLOOD COUNT 4.52 M/uL (4.7-6.1); WHITE BLOOD COUNT 4.82 K/uL (4.8-10.8)
[2016-05-12] MEDS: [UNRECOGNIZED DRUG - OTHER] SCH ×3 (07:49→23:30)
[2016-05-12 07:52] LABS: BUN/CREATININE RATIO 9.4 (10-20); CALCIUM 8.3 mg/dl (8.5-10.1); POTASSIUM 4.1 mmol/L (3.5-5.1)
--- NOTE | 2016-05-12 08:08 | Progress Note ---
Subjective Date of Service: May 12, 2016. Subjective Pt evaluation today including: conversation w/ patient, chart review, lab review Hematuria persists this morning. Back pain 9/10 persists this morning. Pt denies any n/v. H&H of 10.2 and 34.0 this morning. Problem List Medical Problems: (1) Anemia Status: Acute (2) Back pain Status: Acute (3) Bilateral flank pain Status: Acute (4) Flank pain Status: Acute (5) Hematuria Status: Acute (6) Hematuria Status: Acute Review of Systems Constitutional: No chills, No fever Respiratory: No shortness of breath Cardiac: No chest pain Abdomen: No nausea, No pain, No vomiting Musculoskeletal: + problem reported (low back pain /) Male : + hematuria Heme: + abnormal bleeding/bruising Objective Vital Signs Date Time Temp Pulse Resp B/P Pulse Ox O2 Delivery O2 Flow Rate FiO2 05/12/16 07:05 36.5 90 16 127/79 97 Room Air 05/12/16 05:35 74 16 93 Room Air 05/12/16 00:42 79 16 93 Room Air 05/11/16 23:45 Room Air 05/11/16 23:22 36.6 81 16 145/93 94 Room Air 05/11/16 20:10 79 16 97 Room Air 05/11/16 15:50 36.7 88 16 134/78 92 Room Air 05/11/16 15:33 77 16 97 Room Air 05/11/16 15:15 Room Air 05/11/16 11:08 78 16 98 Room Air 05/11/16 09:23 104 05/11/16 09:02 142/92 Physical Exam General Appearance: no apparent distress Eyes: normal inspection ENT: hearing grossly normal Neck: no JVD Respiratory/Chest: no respiratory distress, no accessory muscle use Cardiovascular: no JVD Extremities: normal inspection Neurologic/Psychiatric: alert, normal mood/affect, oriented x 3 Skin: normal color Laboratory Results Last 24 Hours Test 05/12/16 07:00 White Blood Count 4.82 K/uL Red Blood Count 4.52 M/uL Hemoglobin 10.2 g/dL Hematocrit 34.0 % Mean Corpuscular Volume 75.2 fL Mean Corpuscular Hemoglobin 22.6 pg Mean Corpuscular Hemoglobin Concent 30.0 g/dl RDW Standard Deviation 63.9 fL RDW Coefficient of Variation 23.3 % Platelet Count 216 K/uL Mean Platelet Volume 9.2 fL Sodium Level 142 mmol/L Potassium Level 4.1 mmol/L Chloride Level 109 mmol/L Carbon Dioxide Level 27 mmol/L Anion Gap 6.0 mmol/L Blood Urea Nitrogen 9 mg/dl Creatinine 1.00 mg/dl Est Creatinine Clear Calc Drug Dose 134.3 ml/min Estimated GFR () 114.1 Estimated GFR (Non- 98.5 BUN/Creatinine Ratio 9.4 Random Glucose 89 mg/dl Calcium Level 8.3 mg/dl Assessment and Plan A/P: Gross hematuria AFVSS. Gross hematuria persists. UC&S negative. Cytology negative for high grade carcinoma. Recommend supportive management with pain control and transfusions PRN. Will plan for cysto in the OR today with possible fulguration, biopsy, ureteroscopy, and stent placement. Risks and benefits of the procedure discussed with the pt. All questions answered. Pt agrees to the procedure at this time. Consent obtained. Appreciate nephrology input. Consider referral to [facility] if no obvious findings for hematuria during cysto today. Will continue to follow along with primary service at this time. Continued [facility] stay due to: other (awaits procedure) Discharge planning: uncertain
[2016-05-12] MEDS ORDERED: CIPROFLOXACIN 400MG / 200ML D5W IV SCH (08:15)
[2016-05-12] MEDS: SERTRALINE HCL 100 MG TAB PO SCH (09:00)
[2016-05-12] MEDS ORDERED: MoRPHine SULFATE 4 MG/ML 1 ML CARP\\VIAL IV PRN (11:45)
[2016-05-12] MEDS: TRAMADOL HCL 50 MG TAB PO PRN ×2 (14:44→21:25)
[2016-05-12] MEDS ORDERED: CONRAY 30% 150ML BOTTLE ONE (16:31)
[2016-05-12] MEDS ORDERED: LIDOCAINE HCL 2% 2 ML VIAL (20MG/ML) ONE (16:39)
[2016-05-12] MEDS ORDERED: DEXAMETHASONE SOD INJ 4 MG/ML VIAL ONE (16:39)
[2016-05-12] MEDS ORDERED: PROPOFOL IV EMULSION 10 MG/ML 20 ML VIAL IV ONE (16:39)
[2016-05-12] MEDS ORDERED: ONDANSETRON INJ 2 MG/ML 2 ML VIAL ONE (16:39)
[2016-05-12] MEDS ORDERED: MIDAZOLAM HCL 1 MG/ML 2ML VIAL ONE (16:40)
[2016-05-12] MEDS ORDERED: FENTANYL CITRATE INJ 50 MCG/1 ML 2 ML VIAL ONE ×2 (16:40→17:58)
[2016-05-12] MEDS ORDERED: ONDANSETRON INJ 2 MG/ML 2 ML VIAL IV PRN (17:00)
[2016-05-12] MEDS ORDERED: ATROPINE SULFATE 0.1 MG/ML 5ML SYR IV PRN (17:00)
[2016-05-12] MEDS ORDERED: FENTANYL CITRATE INJ 50 MCG/1 ML 2 ML VIAL IV PRN (17:00)
[2016-05-12] MEDS ORDERED: EpHEDrine SULFATE INJ 50 MG/ML AMP IV PRN (17:00)
--- NOTE | 2016-05-12 18:33 | DIAGNOSTIC IMAGING REPORT ---
RETROGRADE INCLUDES KUB CLINICAL HISTORY: Bilateral retrograde and stent placement. Bilateral nephrolithiasis COMPARISON STUDY: CT scan dated 05/09/2016 FINDINGS: 9 fluoroscopic spot images are provided for interpretation. 37 seconds of fluoroscopic time was utilized. The right ureter was catheterized in a retrograde fashion. No filling defects are visualized. The left ureter was catheterized in a retrograde fashion. There is a mid left ureteral filling defect which likely represents either a air bubble or calculus. Image #9 demonstrates the proximal pigtail of a right-sided nephroureteral stent. Image #10 demonstrates the proximal pigtail of a left-sided nephroureteral stent. The pigtail is not fully formed. The distal aspect of either stent was not imaged. IMPRESSION: Intraprocedural fluoroscopic spot images as described above. Electronically signed by: Ananda Jones M.D. 05/12/2016 6:31 PM Dictated Date/Time: 05/12/2016 6:29 PM
--- NOTE | 2016-05-12 18:44 | [facility] Post Operative Brief Note ---
Immediate Operative Summary Operative Date May 12, 2016. Pre-Operative Diagnosis Hematuria Post-Operative Diagnosis Same and bilateral renal stones Procedure(s) Performed Cystoscopy, Bilateral Retrograde Pyelogram, Bilateral Flexible Ureteroscopy, Bilateral Laser lithotripsy renal stones , Bilateral stent placement Surgeon Dr Feng Him Director Surgeon(s) none Estimated Blood Loss 0 ml Findings No abnormalities of the bladder. Clear efflux from each UO. Right ureteroscopy - no evidence of any blood within the kidney, no irritated areas. No abnormalities at all that can explain his hematuria. He has 2-3 extremely small amairani's plaques/stones - these were lasered off of their attachments and fragmented. Left ureteroscopy - no evidence of any blood within the kidney, no irritated areas. No abnormalities at all that can explain his hematuria. He had 2 small stones/amairani's plaques - these were fragmented and freed from their attachments. Of note, as the case progressed and the findings were less and less revealing, I asked the SENIOR CAREGIVER to check his fingers for cuts, etc. He was found to have numerous (10+ finger pricks on the tip of all 10 fingers). I documented this with the intraoperative camera. The lack of findings and the strange symptoms lead me to now suspect his primary pathology may be psychological/malingering. Specimens none per surgeon Drains [id number] bilateral ureteral stents; chapa cath Anesthesia Gen Complication(s) None Disposition Recovery Room / PACU (stable)
[2016-05-12] MEDS ORDERED: ALBUTEROL 0.083% NEBU SOLN 3 ML VIAL INH ONE (19:10)
--- NOTE | 2016-05-12 19:13 | Anesthesiology Progress Note ---
Anesthesia Post Op Note Date & Time May 12, 2016 at 19:10 Vital Signs Pain Intensity: 5 Vital Signs Past 12 Hours Date Time Temp Pulse Resp B/P Pulse Ox O2 Delivery O2 Flow Rate FiO2 05/12/16 19:05 85 14 125/71 94 7 05/12/16 18:55 98 18 126/71 89 7 05/12/16 18:45 83 17 131/89 93 Mask 10 05/12/16 18:35 81 18 125/96 95 Mask 10 05/12/16 18:25 83 17 107/78 94 Mask 10 05/12/16 18:17 36.8 83 21 104/84 94 Mask 10 05/12/16 15:35 88 16 93 Room Air 05/12/16 15:11 36.8 78 18 121/72 95 Room Air 05/12/16 11:23 76 16 93 Room Air 05/12/16 07:45 Room Air 05/12/16 07:34 76 16 93 Room Air Notes Mental Status: alert / awake / arousable, participated in evaluation Pt Amnestic to Procedure: Yes Nausea / Vomiting: adequately controlled Pain: adequately controlled Airway Patency, RR, SpO2: see Notes BP & HR: stable & adequate Hydration State: stable & adequate Anesthetic Complications: no major complications apparent Patient with hx/o asthma who in PACU was noted to have expiratory wheezes. I prescribed breathing treatments for him, which he tolerated well. Wheezing improved and patient's SpO2 improved to mid 90's on [place] oxygen. He is already written for duoneb and albuterol MDI on the floor and I wrote for continuous pulse oximetry for him. Breathing non-labored and his only complaint is the sensation from the chapa catheter. Will be ok for transfer back to the floor soon.
[2016-05-12] MEDS ORDERED: ALBUTEROL 0.083% NEBU SOLN 3 ML VIAL INH PRN (19:15)
[2016-05-12] MEDS ORDERED: ALBUT/IPRATROP 3MG/0.5MG NEB 3 ML VIAL INH PRN (19:15)
--- NOTE | 2016-05-12 22:04 | OPERATIVE REPORT ---
DATE OF OPERATION: 05/12/2016 PREOPERATIVE DIAGNOSIS: Bilateral hematuria. 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 PROCEDURE PERFORMED: Cystoscopy, bilateral retrograde pyelogram, bilateral ureteroscopy, bilateral laser lithotripsy, bilateral ureteral stent placement, 6-Palestinian 26 cm, Harris catheter placement. SPECIMENS: There were no specimens. COMPLICATIONS: There were no complications. DESCRIPTION OF THE PROCEDURE: Tip To was identified in the preoperative holding area. Appropriate informed consents were reviewed and completed and the patient was transported to the operating suite. Following induction of general anesthesia and administration of appropriate antibiotics, I began the case. I passed a 22-Palestinian cystoscope per urethra. There was no abnormality of the urethra noted. He has no stricture disease. He has a small prostate, appropriate for age. A full inspection of the bladder was carried out. There was no blood within the bladder, there were no residual clots or other evidence of past bleeding within the bladder. Ureteral orifices were easily identified in orthotopic position. I observed each of these and saw clear efflux from both the right and left ureteral orifices. This was an entirely normal bladder with normal clear efflux from both kidneys. I then placed a cone tip catheter per the cystoscope. Again, I intubated the distal aspect of the right ureteral orifice and I performed a retrograde pyelogram. There were no filling defects or other abnormalities of the right ureter nor renal pelvis. I pulled the catheter and observed prompt drainage from the right kidney. I then intubated the left ureteral orifice and performed a retrograde pyelogram. There were no filling defects noted within the distal left ureter, mid ureter or proximal ureter. The renal pelvis was entirely normal without hydronephrosis or other abnormality. I pulled this catheter and saw prompt drainage from the left side. I then guided a sensor wire into the right ureteral orifice and up to the kidney. I passed a flexible ureteroscope over the top of this wire and performed a full renoscopy. There was no blood within the kidney and there was no evidence of past or recent bleeding within the kidney. There were no visible abnormalities that could explain bleeding within the kidney. Of note, he has several small Darrian's plaques, which certainly would not explain the bleeding; however, given the past, history of numerous admissions and constant right and left flank pain, I passed a 200 micron laser fiber and I fragmented and treated the small stones in the right kidney. There was still no bleeding at the conclusion of this case and following a careful exit ureteroscopy that revealed no abnormalities of the ureter, I placed a 6-Palestinian, 26 cm double-J ureteral stent. I then turned my attention to the left ureteral orifice. I cannulated this with a sensor wire and advanced it to the kidney. I then placed a flexible ureteroscope over the top of this sensor wire and advanced it to the kidney. I again performed a Harris renoscopy. There was no evidence of any active or recent bleeding within the kidney. There are no abnormalities appreciated to suggest a vascular abnormality or tumor or other source of bleeding. He, again, has several small Darrian's plaques, the largest of which is in the lower pole of the kidney. I used the same 200 micron laser fiber to fragment these Darrian's plaques and free them from their adhesions. These stones and Darrian's plaques, again, do not explain the bleeding that was appreciated preoperatively. I performed a careful exit ureteroscopy and saw no ureteral tumors or other abnormalities. I placed a second 6-Palestinian, 26 cm double-J ureteral stent. Of note, at that time, I began to question whether this presentation of gross hematuria may, in fact, be artifactual or malingering. I asked the RESIDENT ADVISOR to inspect the patient's fingers to see if any cuts or other abnormalities and amazingly, he has numerous pinpricks on each finger tip of both the left and right hands. This leads me to strongly suspect that he may be, in fact, adding blood to his urine, as there is no evidence, intraoperatively, of any source of bleeding from the urinary system. To further confirm this, I did place a Harris catheter with a closed system, which will be left overnight. I do expect some bleeding from the procedure today; however, we will be able to compare to see if this is in line with the bleeding he has had over the past several days. At the conclusion of the case, the patient was extubated and taken to the PACU in stable condition. I attest to the content of the Intraoperative Record and any orders documented therein. Any exceptio ns are noted below.
[2016-05-13] VITALS (7 sets, daily range): BP systolic 127–141; BP diastolic 77–80; PULSE 82–97; TEMP 36.6–36.9; O2SAT 91–95
[2016-05-13] MEDS: SODIUM CHLORIDE 0.9% 1000ML 1,000 ML IV SCH ×2 (02:51→11:33)
[2016-05-13] MEDS: TRAMADOL HCL 50 MG TAB PO PRN ×2 (03:35→12:00)
[2016-05-13] MEDS: ALBUT/IPRATROP 3MG/0.5MG NEB 3 ML VIAL INH SCH ×3 (03:56→11:06)
[2016-05-13 08:07] LABS: HEMATOCRIT 35.9 % (42-52); MEAN CELL VOLUME 76.9 fL (80-100); MEAN CORPUSCULAR HEMOGLOBIN 23.6 pg (25-34); MEAN CORPUSCULAR HGB CONC 30.6 g/dl (32-36); MEAN PLATELET VOLUME 9.2 fL (7.4-10.4); PLATELET COUNT 250 K/uL (130-400); RED BLOOD COUNT 4.67 M/uL (4.7-6.1); WHITE BLOOD COUNT 10.75 K/uL (4.8-10.8)
[2016-05-13] MEDS: [UNRECOGNIZED DRUG - OTHER] SCH (08:31)
--- NOTE | 2016-05-13 08:36 | Anesthesiology Progress Note ---
Anesthesia Post Op Note Date & Time May 13, 2016 at 08:35 Vital Signs Pain Intensity: 8.0 Vital Signs Past 12 Hours Date Time Temp Pulse Resp B/P Pulse Ox O2 Delivery O2 Flow Rate FiO2 05/13/16 07:50 87 16 92 Nasal Cannula 1.0 05/13/16 07:00 36.6 83 16 141/77 94 Nasal Cannula 2.0 05/13/16 03:56 82 16 95 Room Air 05/13/16 03:51 36.9 83 16 127/80 94 Nasal Cannula 2.0 05/12/16 23:30 92 Nasal Cannula 2.0 05/12/16 23:30 16 92 Nasal Cannula 2.0 05/12/16 22:52 36.8 89 18 142/80 94 Nasal Cannula 4.0 05/12/16 21:40 37.0 85 18 123/80 93 Nasal Cannula 4.0 05/12/16 20:42 36.5 86 18 130/70 94 Nasal Cannula 4.0 Notes Mental Status: alert / awake / arousable, participated in evaluation Pt Amnestic to Procedure: Yes Nausea / Vomiting: adequately controlled Pain: adequately controlled Airway Patency, RR, SpO2: stable & adequate BP & HR: stable & adequate Hydration State: stable & adequate Anesthetic Complications: no major complications apparent
[2016-05-13 08:44] LABS: BUN/CREATININE RATIO 10.2 (10-20); CALCIUM 8.7 mg/dl (8.5-10.1); CREATININE 1.2 mg/dl (0.60-1.40); POTASSIUM 4.5 mmol/L (3.5-5.1)
[2016-05-13] MEDS: SERTRALINE HCL 100 MG TAB PO SCH (08:57)
--- NOTE | 2016-05-13 09:31 | Progress Note ---
Subjective Date of Service: May 13, 2016. Subjective Pt evaluation today including: conversation w/ patient, physical exam, chart review Voiding: chapa catheter in place 31 year old male POD#1 cystoscopy bilateral ureteroscopy laser litho of amairani' s plaques with bilateral ureteral stents. No findings to explain his hematuria. He has bilateral ureteral stents and indwelling catheter and urine is very clear this morning. Unfortunately suspect malingering. Pt has multiple pinpricks on his fingers. This morning he complains of discomfort but this has been ongoing. PDMP was checked and pt has had multiple rx for narcotics. Problem List Medical Problems: (1) Anemia Status: Acute (2) Back pain Status: Acute (3) Bilateral flank pain Status: Acute (4) Flank pain Status: Acute (5) Hematuria Status: Acute (6) Hematuria Status: Acute Review of Systems Constitutional: No chills, No fever Eyes: No worsening of vision ENT: No hearing loss Respiratory: No cough, No shortness of breath Cardiac: No chest pain Abdomen: + see HPI, No nausea Male : + see HPI, No hematuria Neurologic: No memory loss Psychiatric: + see HPI Heme: No abnormal bleeding/bruising Endo: No fatigue Objective Vital Signs Date Time Temp Pulse Resp B/P Pulse Ox O2 Delivery O2 Flow Rate FiO2 05/13/16 07:50 87 16 92 Nasal Cannula 1.0 05/13/16 07:00 36.6 83 16 141/77 94 Nasal Cannula 2.0 05/13/16 03:56 82 16 95 Room Air 05/13/16 03:51 36.9 83 16 127/80 94 Nasal Cannula 2.0 05/12/16 23:30 92 Nasal Cannula 2.0 05/12/16 23:30 16 92 Nasal Cannula 2.0 05/12/16 22:52 36.8 89 18 142/80 94 Nasal Cannula 4.0 05/12/16 21:40 37.0 85 18 123/80 93 Nasal Cannula 4.0 05/12/16 20:42 36.5 86 18 130/70 94 Nasal Cannula 4.0 05/12/16 20:20 36.9 87 18 120/76 94 Nasal Cannula 4.0 05/12/16 19:40 94 Nasal Cannula 4.0 05/12/16 19:25 83 17 122/79 94 Nasal Cannula 4 4/6/17 19:15 36.7 96 20 119/84 93 Nasal Cannula 4 05/12/16 19:05 85 14 125/71 94 7 05/12/16 18:55 98 18 126/71 89 7 05/12/16 18:45 83 17 131/89 93 Mask 10 05/12/16 18:35 81 18 125/96 95 Mask 10 05/12/16 18:25 83 17 107/78 94 Mask 10 05/12/16 18:17 36.8 83 21 104/84 94 Mask 10 05/12/16 15:35 88 16 93 Room Air 05/12/16 15:11 36.8 78 18 121/72 95 Room Air 05/12/16 11:23 76 16 93 Room Air Physical Exam General Appearance: WD/WN, no apparent distress Eyes: normal inspection ENT: hearing grossly normal Neck: no JVD Respiratory/Chest: no respiratory distress, no accessory muscle use Abdomen: soft Extremities: normal range of motion, non-tender, normal inspection, no pedal edema, no calf tenderness Neurologic/Psychiatric: alert, normal mood/affect, oriented x 3 Skin: normal color, warm/dry Laboratory Results Last 24 Hours Test 05/13/16 07:42 White Blood Count 10.75 K/uL Red Blood Count 4.67 M/uL Hemoglobin 11.0 g/dL Hematocrit 35.9 % Mean Corpuscular Volume 76.9 fL Mean Corpuscular Hemoglobin 23.6 pg Mean Corpuscular Hemoglobin Concent 30.6 g/dl RDW Standard Deviation 64.4 fL RDW Coefficient of Variation 23.5 % Platelet Count 250 K/uL Mean Platelet Volume 9.2 fL Sodium Level 142 mmol/L Potassium Level 4.5 mmol/L Chloride Level 106 mmol/L Carbon Dioxide Level 25 mmol/L Anion Gap 11.0 mmol/L Blood Urea Nitrogen 12 mg/dl Creatinine 1.20 mg/dl Est Creatinine Clear Calc Drug Dose 111.9 ml/min Estimated GFR () 91.5 Estimated GFR (Non- 79.0 BUN/Creatinine Ratio 10.2 Random Glucose 121 mg/dl Calcium Level 8.7 mg/dl Assessment and Plan Hematuria s/p cysto bilateral ureteroscopy laser litho with bilateral stents. No urologic findings to explain hematuria- suspect malingering- See HPI. Discussed with Dr. Camarena and Dr. Flores. Consider psych consult. Urine is clear today with chapa and bilateral ureteral stents. D/C chapa. If has stent discomfort recommend oxybutynin 5 mg q8h prn Ok to discharge home from urology standpoint. We will follow up in office in 7-10 days to pull stents.Our office will contact. Continued [facility] stay due to: multiple IV medications needed, other (plan for cystoscopy today) Discharge planning: uncertain
[2016-05-13] MEDS ORDERED: TRAM-10 PO (09:32)
--- NOTE | 2016-05-13 09:33 | Discharge Instructions ---
Discharge Instructions Date of Service May 13, 2016. Admission Reason for Admission: Bilateral Flank Pain, Hematuria Discharge Discharge Diagnosis / Problem: Bilateral Flank pain Discharge Goals Goal(s): Improve function Activity Recommendations Activity Limitations: resume your previous activity . Current Hospital Diet Patient's current hospital diet: Regular Diet Discharge Diet Recommended Diet: Regular Diet Procedures Procedures Performed: Cystoscopy, Bilateral Retrograde Pyelogram, Bilateral Flexible Ureteroscopy, Bilateral Laser lithotripsy renal stones , Bilateral stent placement Pending Studies Studies pending at discharge: no Medical Emergencies . Who to Call and When: Medical Emergencies: If at any time you feel your situation is an emergency, please call 911 immediately. . Non-Emergent Contact Non-Emergency issues call your: Primary Care Provider . . "Provider Documentation" section prepared by Charis Camarena. VTE Core Measure Inpt VTE Proph given/why not?: Sherron Latham, SCD's
--- NOTE | 2016-05-13 11:06 | Discharge Summary ---
Discharge Summary Date of Service May 13, 2016. (Andrea Flores MD) Discharge Summary Admission Date: May 09, 2016 at 14:59 Discharge Date: May 13, 2016 Discharge Disposition: Home Principal Diagnosis: Bilateral Flank Pain, Hematuria Procedures: DICTATED BY: Marky Feng M.D. DATE OF OPERATION: 05/12/2016 PREOPERATIVE DIAGNOSIS: Bilateral hematuria. 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 PROCEDURE PERFORMED: Cystoscopy, bilateral retrograde pyelogram, bilateral ureteroscopy, bilateral laser lithotripsy, bilateral ureteral stent placement, 6-Guamanian 26 cm, Harris catheter placement. SPECIMENS: There were no specimens. COMPLICATIONS: There were no complications. DESCRIPTION OF THE PROCEDURE: Tip To was identified in the preoperative holding area. Appropriate informed consents were reviewed and completed and the patient was transported to the operating suite. Following induction of general anesthesia and administration of appropriate antibiotics, I began the case. I passed a 22-Guamanian cystoscope per urethra. There was no abnormality of the urethra noted. He has no stricture disease. He has a small prostate, appropriate for age. A full inspection of the bladder was carried out. There was no blood within the bladder, there were no residual clots or other evidence of past bleeding within the bladder. Ureteral orifices were easily identified in orthotopic position. I observed each of these and saw clear efflux from both the right and left ureteral orifices. This was an entirely normal bladder with normal clear efflux from both kidneys. I then placed a cone tip catheter per the cystoscope. Again, I intubated the distal aspect of the right ureteral orifice and I performed a retrograde pyelogram. There were no filling defects or other abnormalities of the right ureter nor renal pelvis. I pulled the catheter and observed prompt drainage from the right kidney. I then intubated the left ureteral orifice and performed a retrograde pyelogram. There were no filling defects noted within the distal left ureter, mid ureter or proximal ureter. The renal pelvis was entirely normal without hydronephrosis or other abnormality. I pulled this catheter and saw prompt drainage from the left side. I then guided a sensor wire into the right ureteral orifice and up to the kidney. I passed a flexible ureteroscope over the top of this wire and performed a full renoscopy. There was no blood within the kidney and there was no evidence of past or recent bleeding within the kidney. There were no visible abnormalities that could explain bleeding within the kidney. Of note, he has several small Darrian's plaques, which certainly would not explain the bleeding; however, given the past, history of numerous admissions and constant right and left flank pain, I passed a 200 micron laser fiber and I fragmented and treated the small stones in the right kidney. There was still no bleeding at the conclusion of this case and following a careful exit ureteroscopy that revealed no abnormalities of the ureter, I placed a 6-Guamanian, 26 cm double-J ureteral stent. I then turned my attention to the left ureteral orifice. I cannulated this with a sensor wire and advanced it to the kidney. I then placed a flexible ureteroscope over the top of this sensor wire and advanced it to the kidney. I again performed a Harris renoscopy. There was no evidence of any active or recent bleeding within the kidney. There are no abnormalities appreciated to suggest a vascular abnormality or tumor or other source of bleeding. He, again, has several small Darrian's plaques, the largest of which is in the lower pole of the kidney. I used the same 200 micron laser fiber to fragment these Darrian's plaques and free them from their adhesions. These stones and Darrian's plaques, again, do not explain the bleeding that was appreciated preoperatively. I performed a careful exit ureteroscopy and saw no ureteral tumors or other abnormalities. I placed a second 6-Guamanian, 26 cm double-J ureteral stent. Of note, at that time, I began to question whether this presentation of gross hematuria may, in fact, be artifactual or malingering. I asked the [employer] to inspect the patient's fingers to see if any cuts or other abnormalities and amazingly, he has numerous pinpricks on each finger tip of both the left and right hands. This leads me to strongly suspect that he may be, in fact, adding blood to his urine, as there is no evidence, intraoperatively, of any source of bleeding from the urinary system. To further confirm this, I did place a Harris catheter with a closed system, which will be left overnight. I do expect some bleeding from the procedure today; however, we will be able to compare to see if this is in line with the bleeding he has had over the past several days. At the conclusion of the case, the patient was extubated and taken to the PACU in stable condition. I attest to the content of the Intraoperative Record and any orders documented therein. Any exceptions are noted below. Consultations: Urology Nephrology (Andrea Flores MD) Medication Reconciliation New Medications: Tramadol (Ultram) 50 Mg Tab 1 TAB PO TID PRN for Pain for 5 Days, #10 TAB Continued Medications: Albuterol Hfa (Ventolin Hfa) 200 Puffs/73697 Mcg Aers 2-4 PUFFS INH BID, #1 INHALER Albuterol Sulf (Proventil 0.083% 2.5MG/3ML) 2.5 Mg/3 Ml Nebu 2.5 MG INH QID, EA Fluticasone Furoate-Vilanterol (Breo Ellipta) 1 Inh Inh 2 PUFFS INH BID Sertraline (Zoloft) 100 Mg Tab 100 MG PO DAILY, TAB Discharge Exam Review of Systems: Constitutional: No chills, No fever, No sweats Eyes: No eye pain, No redness ENT: No nasal symptoms, No sore throat, No tinnitus Respiratory: No cough, No dyspnea on exertion, No shortness of breath, No sputum, No wheezing Cardiovascular: No chest pain, No orthopnea, No palpitations Abdomen: No constipation, No diarrhea, No nausea, No pain, No vomiting Musculoskeletal: No joint pain, No muscle pain Genitourinary - Male: + dysuria (improved), No hematuria Neurologic: No memory loss, No paralysis Psychiatric: No depression symptoms Endocrine: No fatigue Hematologic / Lymphatic: No abnormal bleeding/bruising, No clotting problems , No night sweats, No swollen lymph nodes Integumentary: No color change, No new/changing skin lesions, No rash Physical Exam: General Appearance: WD/WN, no apparent distress Eyes: normal inspection, EOMI ENT: hearing grossly normal, pharynx normal Neck: supple, no adenopathy, no JVD Respiratory/Chest: lungs clear, no respiratory distress Cardiovascular: regular rate, rhythm, no gallop, no murmur Abdomen / GI: normal bowel sounds, non tender, soft Extremities: no calf tenderness, no pedal edema Neurologic/Psychiatric: alert, normal mood/affect, oriented x 3 Skin: normal color, warm/dry, no rash (Andrea Flores MD) Review of Systems: Constitutional: No fever Respiratory: No shortness of breath Cardiovascular: No chest pain Abdomen: No pain Physical Exam: General Appearance: no apparent distress Respiratory/Chest: lungs clear, no respiratory distress Cardiovascular: regular rate, rhythm Abdomen / GI: normal bowel sounds, non tender, soft Neurologic/Psychiatric: alert, oriented x 3 (Charis Camarena M.D.) Hospital Course The patient is 31-year-old male, presented to the emergency department with acute worsening of ongoing bilateral flank pain. He states that he's been having flank pain for the past year and was being worked up at [facility]. He notes a history of urinating molasses consistency urine, with blood and clot. He has been followed extensively by urology and nephrology, who were consult during this admission. History is remarkable for positive ANAs screen, and he was due to have a renal biopsy done at [facility] but states that they declined to do the procedure because they felt he was "drug-seeking". He did have a negative cystoscopy in March, and is noted to have bilateral nonobstructive renal stones. Due to the ongoing severity of his pain a repeat cystoscopy was performed. Intraoperatively no associated bleeding was identified, however the nurse noted that he had multiple punctures to the tips of his fingers. He did have a catheter placed postop, which ultimately drained clear yellow urine. With these findings, it was felt that the patient was malingering and was not having true hematuria as he maintains. At this point all IV opioids were stopped. When asked about the pinpricks on his fingers, the patient states that his cat bites his fingers constantly. The patient was reviewed and the PDMP and it is noted that he obtains opioids from multiple providers. His creatinine remained steady throughout the admission, and there is no evidence that he has renal dysfunction. He does have a hemoglobin of 11, though review of hemoglobins earlier in the year revealed that his hemoglobin was as low as 8 in March but is actually improving. Unfortunately, this admission was marked with evidence of malingering and drug- seeking behavior. We discharged the patient, who will follow up with urology and nephrology. We will inform the emergency department of this patient's that he can be placed on a narcotic contract if he is to return to the ED. The patient was discharged in stable condition. Total Time Spent: Less than 30 minutes This includes examination of the patient, discharge planning, medication reconciliation, and communication with other providers. (Andrea Flores MD) I have reviewed the medical record and performed a history and physical examination of this patient today. I have discussed the case with Dr. Flores. The above note reflects my findings, conclusions, and recommendations Clear urine drained post operatively in the OR. noted cut reagan in finger. blood in urine is likely added by patient for drug seeking behavior No narcotics given on discharge except 10 tablets of tramadol to avoid withdrawal. f/u with primary care physician. Total Time Spent: Greater than 30 minutes (40) (Charis Camarena M.D.) Discharge Instructions Please refer to the electronic Patient Visit Report (Discharge Instructions) for additional information. (Andrea Flores MD) Follow-Up Urology Nephrology (Andrea Flores MD) Additional Copies To Boris Barker M.D.; Marky Feng M.D.
== END 2016-05-13 14:07 | disposition home or self-care (01) ==
LOC: ENRESERVDT → ENRESERVTM → C.EDB 10:06 → EDBEDREQ 14:59 → C.MSN 14:59
PROVIDERS: ADMIT Internal Medicine; ATTEND Family Medicine
DX: R31.9 Hematuria, unspecified (principal); R10.9 Unspecified abdominal pain; R03.0 Elevated blood-pressure reading, without diagnosis of hypertension; D64.9 Anemia, unspecified; G89.29 Other chronic pain; J45.909 Unspecified asthma, uncomplicated; F43.10 Post-traumatic stress disorder, unspecified; Z83.3 Family history of diabetes mellitus; Z82.49 Family history of ischemic heart disease and other diseases of the circulatory system; Z82.3 Family history of stroke

== ENCOUNTER 2016-05-26 08:55 | Emergency (ER) | payer OTHER ==
[~2016-05-26] VITALS: Ht 185.4 cm; Wt 106.1 kg
[~2016-05-26 08:55] MED LIST changes: +ALBINS/ INH; +FLUT1INH INH; -OXYC1TAB3 PO; +SERT-234 PO; +VNTHFA/IN INH
[2016-05-26 08:59] VITALS: TEMP 37; Ht 185.4 cm; Wt 106.1 kg
[2016-05-26] MEDS ORDERED: SODIUM CHLORIDE 0.9% 1000ML 1,000 ML IV STA (09:09)
[2016-05-26] MEDS ORDERED: KETOROLAC TROMETHAMINE 30 MG/ML VIAL IV STA (09:09)
[2016-05-26] MEDS ORDERED: PROCHLORPERAZINE 5 MG/ML 2 ML VIAL IV STA (09:09)
[2016-05-26] MEDS ORDERED: DiphenhydrAMINE HCL 50 MG/ML VIAL IV STA (09:09)
--- NOTE | 2016-05-26 09:25 | EMERGENCY ROOM VISIT NOTE ---
History Report prepared by Luz: Lulu Crump Under the Supervision of: Dr. Thaddeus Levi M.D. First contact with patient: 09:02 Chief Complaint: URINARY SYMPTOMS Stated Complaint: SEVERE KIDNEY PAIN,BLOOD IN URINE History of Present Illness The patient is a 31 year old male who presents to the Emergency Room with complaints of worsening left flank pain that began a few days ago. The patient states that he has been dealing with kidney stones and hematuria since last May. He was following up with Dr. Vila from [facility] initially and had multiple stents placed; however, his kidney stones were never expelled. The patient was in the emergency room on March 18 for bilateral flank pain and had a abdomen and pelvis CT that revealed renal calcifications, but no obstructing urinary tract calculus. He was discharged on oxycodone. He was hospitalized on April 02 for hematuria and flank pain. He was seen in the emergency room again on April 24 for hematuria and had an abdomen and pelvis CT again, which was unchanged from previous. He was discharged with Oxycodone. The patient was hospitalized on May 09 for hematuria and flank pain. On May 12, Dr. Feng performed a lithotripsy and bilateral stent placement. The patient was feeling well upon discharge from the hospital. A few days ago, he developed left flank pain. He has not had any right flank pain since his surgery. He also has continued to have hematuria.The patient is scheduled for stent removal with Dr. Feng on June 06. The patient has been taking Tylenol for his discomfort, which he describes as a "twisting" pain. Source of History: patient Onset: a few days ago Position: other (left flank pain) Quality: other (twisting) Timing: worsening Associated Symptoms: + urinary symptoms (hematuria) Review of Systems See HPI for pertinent positives & negatives. A total of 10 systems reviewed and were otherwise negative. Past Medical & Surgical Medical Problems: (1) Asthma (2) Bilateral flank pain (3) Malingerer (4) Postconcussive syndrome (5) PTSD (post-traumatic stress disorder) Social History Problems: (1) Drug-seeking behavior Family History Asthma Cancer Diabetes mellitus FH: heart disease FHx: lung disease Hypertension Kidney disease Kidney stones Stroke Social History Smoking Status: Never Smoker Drug Use: none Marital Status: single Housing Status: lives with family Occupation Status: unemployed Current/Historical Medications Scheduled Albuterol Hfa (Ventolin Hfa), 2-4 PUFFS INH BID Albuterol Sulf (Proventil 0.083% 2.5MG/3ML), 2.5 MG INH PRN Dicyclomine Hcl (Bentyl), 20 MG PO Q6 Fluticasone Furoate-Vilanterol (Breo Ellipta), 2 PUFFS INH BID Sertraline (Zoloft), 100 MG PO DAILY Allergies Coded Allergies: Penicillins (Verified Allergy, Intermediate, ITCHY BLOTCHES, 05/26/16) Red Dye (Verified Allergy, Unknown, HIVES, 05/26/16) Physical Exam Vital Signs Date Time Temp Pulse Resp B/P Pulse Ox O2 Delivery O2 Flow Rate FiO2 05/26/16 11:08 89 131/83 97 05/26/16 10:27 86 130/86 98 05/26/16 08:59 37.0 97 18 157/100 99 Room Air Physical Exam GENERAL: Patient is a healthy-appearing well-nourished 31 year old male. HEAD: Normocephalic atraumatic EYES: Ocular movements intact pupils equal and react to light OROPHARYNX mucous membranes are moist no exudates present no erythema or edema present NECK: Supple no nuchal rigidity CHEST: Good equal expansion LUNGS: Clear and equal to auscultation CARDIAC: Normal S1 and S2 ABDOMEN: Soft nontender no guarding BACK: No CVA tenderness EXTREMITIES: No pain upon palpation normal muscle strength in all groups no clubbing cyanosis or edema NEURO: Patient is following commands is answering questions appropriately. Alert and oriented x3 Cranial Nerves 2-12 grossly intact Medical Decision & Procedures ER Provider Diagnostic Interpretation: Radiology results as stated below per my review and radiologist interpretation: KUB CLINICAL HISTORY: Pt c/o left sided flank pin pain COMPARISON STUDY: 05/09/2016 FINDINGS: Interval placement of bilateral ureteral stents. Bilateral punctate nephrocalcinosis. 2.5 mm calcification mid left ureter. IMPRESSION: 2.5 mm calcification mid left ureter adjacent to the left ureteral stent. Interval placement of bilateral ureteral stents. Nephrocalcinosis. Electronically signed by: Derik Collier M.D. 05/26/2016 10:07 AM Dictated Date/Time: 05/26/2016 10:03 AM ULTRASOUND KIDNEYS AND BLADDER CLINICAL HISTORY: Right flank pain. COMPARISON STUDY: Abdominal CT dated 05/09/2016. TECHNIQUE: Real-time, grayscale, and color flow sonography of the kidneys and bladder is performed. Images are reviewed in the transverse and longitudinal planes. FINDINGS: Kidneys: The kidneys are normal in size and echotexture. The right kidney measures 12.7 cm in length and the left kidney measures 13.6 cm in length. Bilateral ureteral stents are noted. There is no hydronephrosis. Tiny nonobstructing calculi are suggested bilaterally. There is no sonographic evidence of contour deforming renal mass lesion. No perinephric fluid is identified. Bladder: The bladder contains the dens of both ureteral stents. The bladder was largely decompressed, and ureteral jets were not seen. Upper abdomen: Survey images of the upper abdomen show evidence of hepatic steatosis. IMPRESSION: 1. The kidneys are normal in size and without hydronephrosis. 2. Bilateral ureteral stents are identified. 3. The bladder was partially decompressed and grossly unremarkable. Electronically signed by: Compa Ortez M.D. 05/26/2016 10:27 AM Dictated Date/Time: 05/26/2016 10:24 AM Laboratory Results 05/26/16 09:30 Red Blood Count 4.88, Mean Corpuscular Volume 76.2, Mean Corpuscular Hemoglobin 24.0, Mean Corpuscular Hemoglobin Concent 31.5, Mean Platelet Volume 9.1, Neutrophils (%) (Auto) 58.3, Lymphocytes (%) (Auto) 32.6, Monocytes (%) (Auto) 5.8, Eosinophils (%) (Auto) 2.3, Basophils (%) (Auto) 0.6, Neutrophils # (Auto) 4.83, Lymphocytes # (Auto) 2.70, Monocytes # (Auto) 0.48, Eosinophils # (Auto) 0.19, Basophils # (Auto) 0.05 05/26/16 09:30 Test 05/26/16 09:30 White Blood Count 8.28 K/uL (4.8-10.8) Red Blood Count 4.88 M/uL (4.7-6.1) Hemoglobin 11.7 g/dL (14.0-18.0) Hematocrit 37.2 % (42-52) Mean Corpuscular Volume 76.2 fL (80-100) Mean Corpuscular Hemoglobin 24.0 pg (25-34) Mean Corpuscular Hemoglobin Concent 31.5 g/dl (32-36) Platelet Count 313 K/uL (130-400) Mean Platelet Volume 9.1 fL (7.4-10.4) Neutrophils (%) (Auto) 58.3 % Lymphocytes (%) (Auto) 32.6 % Monocytes (%) (Auto) 5.8 % Eosinophils (%) (Auto) 2.3 % Basophils (%) (Auto) 0.6 % Neutrophils # (Auto) 4.83 K/uL (1.4-6.5) Lymphocytes # (Auto) 2.70 K/uL (1.2-3.4) Monocytes # (Auto) 0.48 K/uL (0.11-0.59) Eosinophils # (Auto) 0.19 K/uL (0-0.5) Basophils # (Auto) 0.05 K/uL (0-0.2) RDW Standard Deviation 61.8 fL (36.4-46.3) RDW Coefficient of Variation 22.4 % (11.5-14.5) Immature Granulocyte % (Auto) 0.4 % Immature Granulocyte # (Auto) 0.03 K/uL (0.00-0.02) Anisocytosis PRESENT Stomatocytes 1+ Urine Color RED Urine Appearance CLOUDY (CLEAR) Urine pH 6.5 (4.5-7.5) Urine Specific [place] 1.025 (1.000-1.030) Urine Protein 2+ (NEG) Urine Glucose (UA) NEG (NEG) Urine Ketones NEG (NEG) Urine Occult Blood 3+ (NEG) Urine Nitrite NEG (NEG) Urine Bilirubin NEG (NEG) Urine Urobilinogen NEG (NEG) Urine Leukocyte Esterase NEG (NEG) Urine RBC >30 /hpf (0-4) Urine WBC >30 /hpf (0-5) Urine Epithelial Cells 5-10 /lpf (0-5) Urine Bacteria NEG (NEG) Anion Gap 10.0 mmol/L (3-11) Est Creatinine Clear Calc Drug Dose 111.9 ml/min Estimated GFR () 91.5 Estimated GFR (Non- 79.0 BUN/Creatinine Ratio 15.5 (10-20) Calcium Level 8.7 mg/dl (8.5-10.1) Total Bilirubin 1.0 mg/dl (0.2-1) Direct Bilirubin 0.1 mg/dl (0-0.2) Aspartate Amino Transf (AST/SGOT) 34 U/L (15-37) Alanine Aminotransferase (ALT/SGPT) 70 U/L (12-78) Alkaline Phosphatase 86 U/L (45-117) Total Protein 7.0 gm/dl (6.4-8.2) Albumin 3.8 gm/dl (3.4-5.0) Lipase 128 U/L (73-393) Labs reviewed by ED physician. Medications Administered Medications (Trade) Dose Ordered Sig/Reena Route Start Time Stop Time Status Last Admin Dose Admin Sodium Chloride (Nss 1000ml) 1,000 ml @ 999 mls/hr Q1H1M STAT IV 05/26/16 09:09 05/26/16 10:09 DC 05/26/16 09:42 999 MLS/HR Ketorolac Tromethamine (Toradol Inj) 30 mg NOW STAT IV 05/26/16 09:09 05/26/16 09:12 DC 05/26/16 09:44 30 MG Prochlorperazine Edisylate (Compazine Inj) 10 mg NOW STAT IV 05/26/16 09:09 05/26/16 09:13 DC 05/26/16 09:44 10 MG Diphenhydramine HCl (Benadryl Inj) 50 mg NOW STAT IV 05/26/16 09:09 05/26/16 09:13 DC 05/26/16 09:43 50 MG Dicyclomine HCl 20 mg 20 mg NOW STAT IM 05/26/16 10:28 05/26/16 10:30 DC 05/26/16 10:43 20 MG Promethazine HCl/ Sodium Chloride (Phenergan Inj/ Nss 50ml) 51 ml @ 204 mls/hr NOW STAT IV 05/26/16 10:28 05/26/16 10:42 DC 05/26/16 10:42 204 MLS/HR ED Course 0902: Past medical records reviewed. The patient was evaluated in room B4. A complete history and physical examination was performed. 0909: Ordered Benadryl Inj 50 mg IV, Compazine Inj 10 mg IV, Toradol Inj 30 mg IV NSS 1000 ml @ 999 mls/hr IV. 1028: Ordered Promethazine HCl 25 mg/NSS 51 ml @ 204 mls/hr IV, Bentyl Inj 20 mg IM. 1045: Upon reexamination the patient is feeling better. I discussed results and treatment plan with the patient. He verbalizes agreement and understanding. The patient is ready for discharge. Medical Decision Differential diagnosis: Etiologies such as renal colic, appendicitis, diverticulitis, mesenteric ischemia, aortic pathology, infections, inflammatory bowel disease, PUD, biliary pathology, UTI, as well as others were entertained. This is a 31-year-old male who presents emergency department. The patient recently had stents placed in his ureters and had a cystoscopy performed at that time. At the time there is no evidence of bleeding and it was felt that the patient was malingering. The request was made to the emergency department to place the patient on the no narcotics list. The patient presents again with hematuria. He was given normal saline bolus, Toradol, Benadryl and Compazine. Repeat examination revealed improvement patient's symptoms. The patient was also given Bentyl. His ultrasound shows no evidence of hydronephrosis and a KUB shows a 2 mm calcification outside a stent. Based on these findings I feel that the patient is safe enough to be discharged home. He was placed on the no narcotics list. [place] Drug Monitoring Program Search Results: patient reviewed within database Drug Monitoring Findings: 10 tramadol prescribed on May 13, 15 oxycodone on April 25, 42 oxycodone on April 08, 30 Oxycodone on March 18. Impression Primary Impression: Hematuria Scribe Attestation The scribe's documentation has been prepared under my direction and personally reviewed by me in its entirety. I confirm that the note above accurately reflects all work, treatment, procedures, and medical decision making performed by me. Departure Information Dispostion Home / Self-Care Prescriptions Dicyclomine Hcl (BENTYL) 20 Mg Tab 20 MG PO Q6, #14 TAB Prov: Thaddeus Levi MD 05/26/16 Referrals Michael Lee D.O. (PCP) Marky Feng M.D. Forms HOME CARE DOCUMENTATION FORM, IMPORTANT VISIT INFORMATION Patient Instructions ED Hematuria, Hematuria Poss Causes, My [facility] Additional Instructions Take 600 mg Ibuprofen every 6 hours Take Bentyl for breakthrough pain Culture results are usually available in approx 48 hours You have been examined and treated today on an emergency basis only. This is not a substitute for, or an effort to provide, complete comprehensive medical care. It is impossible to recognize and treat all injuries or illnesses in a single emergency department visit. It is therefore important that you follow up closely with Dr Feng. Call as soon as possible for an appointment. Thank you for your time and consideration. I look forward to speaking with you again soon. Please don't hesitate to call us if you have any questions.
[2016-05-26 09:53] LABS: BASO % 0.6 %; BASO ABS # 0.05 K/uL (0-0.2); EOS % 2.3 %; HEMATOCRIT 37.2 % (42-52); IG% 0.4 %; LYMPH % 32.6 %; MEAN CELL VOLUME 76.2 fL (80-100); MEAN CORPUSCULAR HGB CONC 31.5 g/dl (32-36); MEAN PLATELET VOLUME 9.1 fL (7.4-10.4); MONO % 5.8 %; NEUT % 58.3 %; PLATELET COUNT 313 K/uL (130-400); RED BLOOD COUNT 4.88 M/uL (4.7-6.1); WHITE BLOOD COUNT 8.28 K/uL (4.8-10.8)
[2016-05-26 09:54] LABS: MANUAL MICROSCOPIC REQUIRED? YES; URINE APPEARANCE CLOUDY (CLEAR); URINE BILIRUBIN NEG (NEG); URINE COLOR RED; URINE NITRITE NEG (NEG); URINE PH 6.5 (4.5-7.5); URINE SPECIFIC GRAVITY 1.025 (1.000-1.030); UROBILINOGEN NEG (NEG)
[2016-05-26 09:55] LABS: REVIEW REQ? NO
--- NOTE | 2016-05-26 10:10 | DIAGNOSTIC IMAGING REPORT ---
KUB CLINICAL HISTORY: Pt c/o left sided flank pin pain COMPARISON STUDY: 05/09/2016 FINDINGS: Interval placement of bilateral ureteral stents. Bilateral punctate nephrocalcinosis. 2.5 mm calcification mid left ureter. IMPRESSION: 2.5 mm calcification mid left ureter adjacent to the left ureteral stent. Interval placement of bilateral ureteral stents. Nephrocalcinosis. Electronically signed by: Derik Collier M.D. 05/26/2016 10:07 AM Dictated Date/Time: 05/26/2016 10:03 AM
[2016-05-26 10:11] LABS: BUN/CREATININE RATIO 15.5 (10-20); CALCIUM 8.7 mg/dl (8.5-10.1); CREATININE 1.2 mg/dl (0.60-1.40); POTASSIUM 3.4 mmol/L (3.5-5.1)
[2016-05-26 10:20] LABS: ANISOCYTOSIS PRESENT; COMPLETE YES; STOMATOCYTE 1+
[2016-05-26 10:21] LABS: URINE BACTERIA NEG (NEG); URINE RBC >30 /hpf (0-4); URINE WBC >30 /hpf (0-5)
[2016-05-26 10:22] LABS: ZZUR CULT IF INDIC CLEAN CATCH YES
[2016-05-26] MEDS ORDERED: DICYCLOMINE HCL 10 MG/ML 2 ML AMP IM STA (10:28)
[2016-05-26] MEDS ORDERED: PROMETHAZINE HCL INJ 25 MG in SODIUM CHLORIDE 0.9% 50ML 50 ML IV STA (10:28)
--- NOTE | 2016-05-26 10:29 | DIAGNOSTIC IMAGING REPORT ---
ULTRASOUND KIDNEYS AND BLADDER CLINICAL HISTORY: Right flank pain. COMPARISON STUDY: Abdominal CT dated 05/09/2016. TECHNIQUE: Real-time, grayscale, and color flow sonography of the kidneys and bladder is performed. Images are reviewed in the transverse and longitudinal planes. FINDINGS: Kidneys: The kidneys are normal in size and echotexture. The right kidney measures 12.7 cm in length and the left kidney measures 13.6 cm in length. Bilateral ureteral stents are noted. There is no hydronephrosis. Tiny nonobstructing calculi are suggested bilaterally. There is no sonographic evidence of contour deforming renal mass lesion. No perinephric fluid is identified. Bladder: The bladder contains the dens of both ureteral stents. The bladder was largely decompressed, and ureteral jets were not seen. Upper abdomen: Survey images of the upper abdomen show evidence of hepatic steatosis. IMPRESSION: 1. The kidneys are normal in size and without hydronephrosis. 2. Bilateral ureteral stents are identified. 3. The bladder was partially decompressed and grossly unremarkable. Electronically signed by: Compa Ortez M.D. 05/26/2016 10:27 AM Dictated Date/Time: 05/26/2016 10:24 AM
[2016-05-26] MEDS ORDERED: DICY20TA35 PO (10:49)
[2016-05-26 11:08] VITALS: BP 131/83; PULSE 89; O2SAT 97
== END 2016-05-26 11:10 | disposition home or self-care (01) ==
LOC: C.EDB 08:56
DX: R31.9 Hematuria, unspecified (principal); J45.909 Unspecified asthma, uncomplicated; F43.10 Post-traumatic stress disorder, unspecified; Z79.899 Other long term (current) drug therapy; Z88.0 Allergy status to penicillin; Z91.09 Other allergy status, other than to drugs and biological substances; Z80.9 Family history of malignant neoplasm, unspecified; Z83.3 Family history of diabetes mellitus; Z82.49 Family history of ischemic heart disease and other diseases of the circulatory system; Z84.1 Family history of disorders of kidney and ureter; Z82.3 Family history of stroke

== ENCOUNTER 2016-06-18 06:41 | Emergency (ER) | payer OTHER ==
[~2016-06-18] VITALS: Ht 185.4 cm; Wt 106.0 kg
[2016-06-18 06:49] VITALS: TEMP 36.7; Ht 185.4 cm; Wt 106.0 kg
[2016-06-18] MEDS ORDERED: OXYCODONE HCL IR 5 MG TAB (IMMEDIATE RELEASE) PO STA (06:57)
--- NOTE | 2016-06-18 07:25 | EMERGENCY ROOM VISIT NOTE ---
History Report prepared by Luz: Jonathan Stout Under the Supervision of: Dr. Vic Espinoza D.O. First contact with patient: 06:47 Chief Complaint: FOOT PAIN Stated Complaint: POSSIBLE BROKEN LEFT FOOT History of Present Illness The patient is a 31 year old male who presents to the Emergency Room with complaints of persistent left foot pain that started two days ago. The patient stepped down on a step and heard a "crack" in his foot. He did not fall or hit his head. He vomited right afterwards. He has some tingling and numbness in his toes on the left foot. The pain is worsened when he puts weight on the foot. Patient denies headache, neck pain, change in vision, fevers, chest pain, shortness of breath, and nausea.. Source of History: patient Onset: two days ago Position: foot (left) Timing: other (persistent) Modifying Factors (Worsening): other (putting weight on the foot) Associated Symptoms: + numbness, + vomiting, No SOB, No chest pain, No fevers, No headache, No melena, No nausea, No neck pain, No urinary symptoms Review of Systems See HPI for pertinent positives & negatives. A total of 10 systems reviewed and were otherwise negative. Past Medical & Surgical Medical Problems: (1) Asthma (2) Bilateral flank pain (3) Malingerer (4) Postconcussive syndrome (5) PTSD (post-traumatic stress disorder) Social History Problems: (1) Drug-seeking behavior Family History Asthma Cancer Diabetes mellitus FH: heart disease FHx: lung disease Hypertension Kidney disease Kidney stones Stroke Social History Smoking Status: Never Smoker Drug Use: none Marital Status: single Housing Status: lives with family Occupation Status: unemployed Current/Historical Medications Scheduled Albuterol Hfa (Ventolin Hfa), 2-4 PUFFS INH BID Albuterol Sulf (Proventil 0.083% 2.5MG/3ML), 2.5 MG INH PRN Fluticasone Furoate-Vilanterol (Breo Ellipta), 2 PUFFS INH BID Sertraline (Zoloft), 100 MG PO DAILY Allergies Coded Allergies: Penicillins (Verified Allergy, Intermediate, ITCHY BLOTCHES, 06/18/16) Red Dye (Verified Allergy, Unknown, HIVES, 06/18/16) Physical Exam Vital Signs Date Time Temp Pulse Resp B/P Pulse Ox O2 Delivery O2 Flow Rate FiO2 06/18/16 08:00 98 141/107 96 Room Air 06/18/16 06:49 36.7 93 18 164/106 98 Room Air Physical Exam GENERAL: Sitting up in chair, holding left knee, disheveled. EYE EXAM: normal conjunctiva. OROPHARYNX: Moist mucous membranes. LUNGS: Clear to auscultation. Normal chest wall mechanics HEART: no murmurs, S1 normal and S2 normal BACK: Back is symmetrical on inspection and there is no deformity, no midline tenderness, no CVA tenderness. SKIN: no rashes and no bruising UPPER EXTREMITIES: upper extremities are grossly normal. LOWER EXTREMITIES: Left lower extremity with full active and passive range of motion of left hip, knee, and ankle. Acute reproducible tenderness left first MTP to the mid arch of left foot, no bruising or induration. DPs 2/4, gross sensation intact, skin is intact. NEURO EXAM: Normal sensorium. Medical Decision & Procedures ER Provider Diagnostic Interpretation: Radiology results as stated below per my review and the radiologist's interpretation: LEFT FOOT 3 VIEWS HISTORY: severe pain 1st mtp to mid foot step and heard pop COMPARISON: None. FINDINGS: There is no fracture or dislocation. Mild soft tissue swelling along the medial aspect of the foot and first MTP joint. Mild degenerative changes at the first MTP joint. Small bony bunion. No radiopaque foreign bodies. IMPRESSION: No fractures. Soft tissue swelling. Electronically signed by: Edwin Nails M.D. 06/18/2016 7:52 AM Dictated Date/Time: 06/18/2016 7:50 AM Medications Administered Medications (Trade) Dose Ordered Sig/Reena Route Start Time Stop Time Status Last Admin Dose Admin Oxycodone HCl (Roxicodone Immediate Rel Tab) 5 mg NOW STAT PO 06/18/16 06:57 06/18/16 06:58 DC 06/18/16 07:02 5 MG ED Course ED COURSE: Vital signs were reviewed and showed hypertension. The patients medical record was reviewed The above diagnostic studies were performed and reviewed. ED treatments and interventions as stated above. 0653: The patient was evaluated in room A3. A complete history and physical examination was performed. 0657: Oxycodone IR 5 mg PO. 0755: Upon reevaluation, the patient is doing well.I discussed my findings with the patient and he understands and agrees with the treatment plan. Based on the patients age, coexisting illnesses, exam and lab findings the decision to treat as an outpatient was made. The patient remained stable while under my care. The patient appeared well at the time of discharge. Medical Decision Differential diagnosis: Etiologies such as fracture, dislocation, neurovascular compromise, compartment syndrome, soft tissue injury, as well as others were entertained. Patient is a 31-year-old male who presents the ER following a 2 day history of left foot pain. He notes that he stepped off the deck and heard a pop in his foot. He is neurovascularly intact. There is no significant edema or obvious trauma. X-ray shows no acute fracture. Patient was given OxyIR while in the ER was discharged to take Motrin/Tylenol. If his pain continues he was instructed to have repeat x-rays in 4-5 days. Patient was discharged with crutches. I do not feel this consistent with gout since this occurred while stepping downstairs any following audible pop followed by shooting pain. Discussed with Pt concerning signs and symptoms to watch out for. Pt was instructed to follow up with their PCP and discussed with the patient their option to return to the ED at anytime for persistent or worsening symptoms. The appropriate anticipatory guidance and out-patient management, including indications for return to the emergency department, were explained at length to the patient and understood. Impression Primary Impression: Contusion of foot Scribe Attestation The scribe's documentation has been prepared under my direction and personally reviewed by me in its entirety. I confirm that the note above accurately reflects all work, treatment, procedures, and medical decision making performed by me. Departure Information Dispostion Home / Self-Care Referrals Michael Lee D.O. (PCP) Forms HOME CARE DOCUMENTATION FORM, IMPORTANT VISIT INFORMATION Patient Instructions My [facility] Additional Instructions Please follow up with your primary care doctor with in the next 24 hours. Any worsening of your symptoms, please return to the ED immediately. This includes fevers greater than 100.4, worsening pain, passing out, chest pain, shortness breath or any other concerning signs or symptoms from your standpoint. If you continue to have pain over the next 4-5 days you will need repeat x-rays to make sure you do not have a missed fracture. Problem Qualifiers Primary Impression: Contusion of foot Encounter type: initial encounter Laterality: left Qualified Codes: S90.32XA - Contusion of left foot, initial encounter
--- NOTE | 2016-06-18 07:53 | DIAGNOSTIC IMAGING REPORT ---
LEFT FOOT 3 VIEWS HISTORY: severe pain 1st mtp to mid foot step and heard pop COMPARISON: None. FINDINGS: There is no fracture or dislocation. Mild soft tissue swelling along the medial aspect of the foot and first MTP joint. Mild degenerative changes at the first MTP joint. Small bony bunion. No radiopaque foreign bodies. IMPRESSION: No fractures. Soft tissue swelling. Electronically signed by: Edwin Nails M.D. 06/18/2016 7:52 AM Dictated Date/Time: 06/18/2016 7:50 AM
[2016-06-18 08:00] VITALS: BP 141/107; PULSE 98; O2SAT 96
== END 2016-06-18 08:05 | disposition home or self-care (01) ==
LOC: C.EDB 06:42 → C.EDA 08:05
DX: S90.32XA Contusion of left foot, initial encounter (principal); X58.XXXA Exposure to other specified factors, initial encounter; R11.10 Vomiting, unspecified; J45.909 Unspecified asthma, uncomplicated; Z87.820 Personal history of traumatic brain injury; Z83.3 Family history of diabetes mellitus; Z82.49 Family history of ischemic heart disease and other diseases of the circulatory system; Z84.1 Family history of disorders of kidney and ureter; Z82.3 Family history of stroke

== ENCOUNTER 2016-08-14 08:59 | Emergency (ER) | payer OTHER ==
[~2016-08-14] VITALS: Ht 185.4 cm; Wt 109.7 kg
[2016-08-14 09:05] VITALS: TEMP 37; Ht 185.4 cm; Wt 109.7 kg
[2016-08-14] MEDS ORDERED: KETOROLAC TROMETHAMINE 60 MG/2 ML VIAL IM STA (10:08)
[2016-08-14] MEDS ORDERED: PROMETHAZINE HCL INJ 25 MG/ML 1 ML VIAL IM STA (10:08)
[2016-08-14] MEDS ORDERED: HYDROmorphone INJ 1 MG/ML SYR IM STA ×2 (10:08→11:16)
[2016-08-14] MEDS ORDERED: ADVIN25/60 INH (10:20)
[2016-08-14 11:02] VITALS: BP 163/114; PULSE 100; O2SAT 97
[2016-08-14] MEDS ORDERED: ONDA4TAB10 SL (11:48)
--- NOTE | 2016-08-14 12:49 | EMERGENCY ROOM VISIT NOTE ---
History Report prepared by Luz: Marj Choudhury Under the Supervision of: Dr. Philippe Triplett D.O. First contact with patient: 09:56 Chief Complaint: HEADACHE Stated Complaint: HEADACHE AND VOMITING History of Present Illness The patient is a 31 year old male who presents to the Emergency Room with complaints of persistent headache starting 4 days ago. The patient has a history of headaches which started after he fell 17 feet and had a concussion and brain bleed. He has been diagnosed post concussion syndrome. He gets headaches 1-2 times a month. He usually goes to his doctor to receive a shot. He has not seen his doctor in 6-7 months. His headache is in the back of his head where he was injured during his fall. He describes his pain as pounding. He also reports numbness which comes into his face and down his arms with his headaches. He denies any swelling in the legs. He has a history of asthma. Source of History: patient Onset: 4 days ago Position: head Quality: ache, other (poudning) Timing: other (persistent) Associated Symptoms: + numbness Note: Pt denies swelling in the legs. Review of Systems See HPI for pertinent positives & negatives. A total of 10 systems reviewed and were otherwise negative. Past Medical & Surgical Medical Problems: (1) Asthma (2) Bilateral flank pain (3) Malingerer (4) Postconcussive syndrome (5) PTSD (post-traumatic stress disorder) Social History Problems: (1) Drug-seeking behavior Family History Asthma Cancer Diabetes mellitus FH: heart disease FHx: lung disease Hypertension Kidney disease Kidney stones Stroke Social History Smoking Status: Never Smoker Drug Use: none Marital Status: single Housing Status: lives with family Occupation Status: unemployed Current/Historical Medications Scheduled Albuterol Hfa (Ventolin Hfa), 2-4 PUFFS INH BID Albuterol Sulf (Proventil 0.083% 2.5MG/3ML), 2.5 MG INH PRN Fluticasone Prop/Salmeterol (Advair Diskus 250/50 60 Dose), 2 PUFF INH BID Ondasetron Odt (Zofran Odt), 4 MG SL Q6H Sertraline (Zoloft), 100 MG PO DAILY Allergies Coded Allergies: Penicillins (Verified Allergy, Intermediate, ITCHY BLOTCHES, 08/14/16) Naproxen (Unverified Allergy, Unknown, ITCHY, 08/14/16) Red Dye (Verified Allergy, Unknown, HIVES, 08/14/16) Physical Exam Vital Signs Date Time Temp Pulse Resp B/P (MAP) Pulse Ox O2 Delivery O2 Flow Rate FiO2 08/14/16 11:02 100 16 163/114 97 Room Air 08/14/16 09:05 37.0 91 20 148/101 96 Room Air Physical Exam GENERAL: Patient is awake, alert, somewhat anxious and uncomfortable appearing. EYES: The conjunctivae are clear. The pupils are round and reactive. EARS, NOSE, MOUTH AND THROAT: The nose is without any evidence of any deformity. Mucous membranes are moist tongue is midline NECK: The neck is nontender and supple. RESPIRATORY: Normal respiratory effort is noted there is no evidence of wheezing rhonchi or rales CARDIOVASCULAR: Regular rate and rhythm noted there no murmurs rubs or gallops normal S1 normal S2 GASTROINTESTINAL: The abdomen is soft. Bowel sounds are present in all quadrants. Abdomen is nontender MUSCULOSKELETAL/EXTREMITIES: There is no evidence of gross deformity full range of motion is noted in the hips and shoulders SKIN: There is no obvious evidence of any rash. There are no petechiae, pallor or cyanosis noted. NEUROLOGIC: Patient is awake alert and oriented x3 strength is symmetric patellar reflexes are 2+ bilaterally Medical Decision & Procedures Medications Administered Medications (Trade) Dose Ordered Sig/Reena Route Start Time Stop Time Status Last Admin Dose Admin Hydromorphone HCl (Dilaudid Inj) 1 mg NOW STAT IM 08/14/16 10:08 08/14/16 10:09 DC 08/14/16 10:08 1 MG Ketorolac Tromethamine (Toradol Inj) 60 mg NOW STAT IM 08/14/16 10:08 08/14/16 10:09 DC 08/14/16 10:08 60 MG Promethazine HCl (Phenergan Inj) 25 mg NOW STAT IM 08/14/16 10:08 08/14/16 10:09 DC 08/14/16 10:08 25 MG Hydromorphone HCl (Dilaudid Inj) 1 mg NOW STAT IM 08/14/16 11:16 08/14/16 11:17 DC 08/14/16 11:23 1 MG ED Course 1003: The patient was evaluated in room C6. A complete history and physical examination were performed. 1008: Phenergan Inj 25 mg IM, Toradol Inj 60 mg IM, Dilaudid Inj 1 mg IM. 1116: Dilaudid Inj 1 mg IM. 1146: Upon reevaluation, the patient is doing well. I discussed the results and treatment plan with him. He verbalized agreement of the treatment plan. He was discharged home. Medical Decision Prior records/ancillary studies reviewed. Additional history obtained from family. Triage Nursing notes reviewed. The patient's history was concerning for headache. Differential diagnosis: Etiologies such as migraine headache, meningitis, sinusitis, CO exposure, ICH, SAH, infection, tumor, headache, sinus thrombosis, arterial dissection, as well as others were entertained. Medication Reconciliation: I attest that I have personally reviewed the patient' s current medications list. Patient was found to have a slightly elevated blood pressure due to circumstances. I do not believe that the patient requires hypertension monitoring. The patient is a 31-year-old male who presented to the emergency department for an evaluation of headache. The patient complains of headache which she states is chronic in nature. He has had similar episodes in the past. The headache was not acute in onset. The patient did not have any meningismus fever or focal neurologic deficit. He was treated with medications in the emergency department and on subsequent reevaluation was feeling much better. The patient was encouraged to rest and avoid any strenuous activity. He was encouraged to follow -up with his primary neurologist this week and continue to take all medications as prescribed. He was also encouraged to return the emergency Department immediately if symptoms change worsen or if the need arises. [place] Drug Monitoring Program Search Results: patient reviewed within database Drug Monitoring Findings: Patient has had multiple different prescribers in . Impression Primary Impression: Chronic headache Scribe Attestation The scribe's documentation has been prepared under my direction and personally reviewed by me in its entirety. I confirm that the note above accurately reflects all work, treatment, procedures, and medical decision making performed by me. Departure Information Dispostion Home / Self-Care Prescriptions Ondasetron Odt (ZOFRAN ODT) 4 Mg Tab 4 MG SL Q6H for Nausea, #20 TAB Prov: Philippe Triplett, 08/14/16 Referrals Gertrude Lee PA-C (PCP) Forms HOME CARE DOCUMENTATION FORM, IMPORTANT VISIT INFORMATION Patient Instructions My [facility] Additional Instructions Call your neurologist tomorrow to schedule a follow-up appointment. Rest and avoid any strenuous activity. Continue all medications as prescribed. Problem Qualifiers Primary Impression: Chronic headache Headache type: unspecified Intractability: not intractable Qualified Codes : R51 - Headache
== END 2016-08-14 12:02 | disposition home or self-care (01) ==
LOC: C.EDB 09:00 → C.EDC 12:02
DX: R51 Headache (principal); J45.909 Unspecified asthma, uncomplicated; Z87.820 Personal history of traumatic brain injury; F43.10 Post-traumatic stress disorder, unspecified; Z80.9 Family history of malignant neoplasm, unspecified; Z83.3 Family history of diabetes mellitus; Z82.49 Family history of ischemic heart disease and other diseases of the circulatory system; Z84.1 Family history of disorders of kidney and ureter; Z82.3 Family history of stroke; Z82.5 Family history of asthma and other chronic lower respiratory diseases; Z76.5 Malingerer [conscious simulation]; Z72.89 Other problems related to lifestyle; Z79.899 Other long term (current) drug therapy

== ENCOUNTER 2016-09-07 12:21 | Emergency (ER) | payer OTHER ==
[~2016-09-07] VITALS: Ht 185.4 cm; Wt 107.5 kg
[2016-09-07 12:25] VITALS: TEMP 36.8; Ht 185.4 cm; Wt 107.5 kg
[2016-09-07] MEDS ORDERED: PROCHLORPERAZINE 5 MG/ML 2 ML VIAL IV STA (12:46)
--- NOTE | 2016-09-07 12:54 | EMERGENCY ROOM VISIT NOTE ---
History Report prepared by Luz: Adin Sommer Under the Supervision of: Dr. Timothy Doshi M.D. First contact with patient: 12:37 Chief Complaint: HEADACHE Stated Complaint: POST CONCUSSION SYNDROME,VOMITING,NUMBNESS History of Present Illness The patient is a 31 year old male who presents to the Emergency Room with complaints of a constant headache starting earlier this morning. The patient states that 4 years ago he fell and hit the back of his head, and afterwards he was diagnosed with post-concussion syndrome. He states that he commonly gets headaches, though today was much worse than usual. He additionally states that he has been vomiting today, and he cannot keep anything down. Also, he states that sometimes it is very difficult for him to talk, and he has some numbness. He denies any abdominal pain or current nausea. The patient states that he is currently taking Tylenol for the pain since that is all that he has. He states when he was diagnosed he took hydrocodone. Also, the patient states that he was on dialysis for pneumonia and sepsis, though he is no longer on it. He states that he has not been able to see his neurologist lately. Source of History: patient Onset: this morning Position: head Quality: ache Timing: constant Associated Symptoms: + vomiting, + numbness, No nausea, No abdominal pain Note: Associated symptoms: Difficulty speaking Review of Systems All systems have been listed, reviewed, and are negative other than those previously mentioned. Please see Additional Medical History Sheet. Past Medical & Surgical Medical Problems: (1) Asthma (2) Bilateral flank pain (3) Malingerer (4) Postconcussive syndrome (5) PTSD (post-traumatic stress disorder) Social History Problems: (1) Drug-seeking behavior Family History Asthma Cancer Diabetes mellitus FH: heart disease FHx: lung disease Hypertension Kidney disease Kidney stones Stroke Social History Smoking Status: Never Smoker Drug Use: none Marital Status: single Housing Status: lives with family Occupation Status: unemployed Current/Historical Medications Scheduled Albuterol Hfa (Ventolin Hfa), 2-4 PUFFS INH BID Albuterol Sulf (Proventil 0.083% 2.5MG/3ML), 2.5 MG INH PRN Fluticasone Prop/Salmeterol (Advair Diskus 250/50 60 Dose), 2 PUFF INH BID Ondasetron Odt (Zofran Odt), 4 MG SL Q6H Sertraline (Zoloft), 100 MG PO DAILY Allergies Coded Allergies: Penicillins (Verified Allergy, Intermediate, ITCHY BLOTCHES, 08/14/16) Naproxen (Unverified Allergy, Unknown, ITCHY, 08/14/16) Red Dye (Verified Allergy, Unknown, HIVES, 08/14/16) Physical Exam Vital Signs Date Time Temp Pulse Resp B/P (MAP) Pulse Ox O2 Delivery O2 Flow Rate FiO2 09/07/16 14:08 09/07/16 14:08 97 18 156/102 97 Room Air 09/07/16 12:25 36.8 112 20 176/107 97 Room Air Physical Exam GENERAL:Patient appears despondent and in moderate distress. Patient is adequately hydrated and well-nourished. SKIN: No erythema, pallor, cyanosis or rash HEENT: Normal head, pupils equal, reactive to light and accommodation. Ears normal. Oral cavity and posterior pharynx appear normal. Neck: Without adenopathy, no neck vein distention. LUNGS: Clear to auscultation. No wheezes, no rales, no rhonchi. HEART: No murmurs. No gallops. No rubs ABDOMEN: No masses, no rebound, no hepatomegaly or splenomegaly. EXTREMITIES: No signs of trauma. No pedal or pretibial edema. No calf or thigh tenderness. NEUROLOGIC: Awake, alert and appears despondent. The patient does not appear to have suicidal or homicidal ideations. Cranial nerves II-XII within normal limits. No gross motor sensory function deficits. Medical Decision & Procedures Laboratory Results 09/07/16 12:55 09/07/16 12:55 Test 09/07/16 12:55 Red Blood Count 4.84 M/uL (4.7-6.1) Mean Corpuscular Volume 79.8 fL (80-100) Mean Corpuscular Hemoglobin 25.6 pg (25-34) Mean Corpuscular Hemoglobin Concent 32.1 g/dl (32-36) RDW Standard Deviation 51.2 fL (36.4-46.3) RDW Coefficient of Variation 18.9 % (11.5-14.5) Mean Platelet Volume 9.3 fL (7.4-10.4) Anion Gap 9.0 mmol/L (3-11) Est Creatinine Clear Calc Drug Dose 103.9 ml/min Estimated GFR () 83.1 Estimated GFR (Non- 71.7 BUN/Creatinine Ratio 6.1 (10-20) Calcium Level 9.2 mg/dl (8.5-10.1) Laboratory results as stated above per my review. Medications Administered Medications (Trade) Dose Ordered Sig/Reena Route Start Time Stop Time Status Last Admin Dose Admin Prochlorperazine Edisylate (Compazine Inj) 10 mg NOW STAT IV 09/07/16 12:46 09/07/16 12:48 DC 09/07/16 13:15 10 MG Sodium Chloride 1,000 ml @ 1,000 mls/hr Q1H ONCE IV 09/07/16 13:00 09/07/16 13:59 DC 09/07/16 13:15 1,000 MLS/HR ED Course 1237: Past medical records reviewed. The patient was evaluated in room C7. A complete history and physical examination was performed. 1246: Compazine Inj 10mg IV 1300: Sodium Chloride 1000 ml @ 1000 mls/hr IV 1339: I reevaluated the patient, and he was feeling better. He is getting the rest of fluids. Once his fluids are done the patient will be discharged home. He understands his discharge instructions. Medical Decision Nurses notes reviewed. Medical history sheet reviewed. Differential diagnosis includes but is not limited to: post-concussive syndrome, depression, and recurrent headaches. The patient was given IV fluids and Compazine which did seem to help his headache. Multiple labs were evaluated. Please see above. Potassium is slightly low. I do not believe the patient needs another imaging study at this time. His problems began 4 years ago. The patient is on the pain management list and is to receive no narcotics. I believe the patient may have postconcussive syndrome but also has significant depression. He should follow-up with his neurologist and possibly psychiatry. Medication Reconcilliation Current Medication List: was personally reviewed by me Blood Pressure Screening Patient's blood pressure: Elevated blood pressure Blood pressure disposition: Referred to PCP Impression Primary Impression: PTSD (post-traumatic stress disorder) Additional Impressions: Hypokalemia Hypertension Scribe Attestation The scribe's documentation has been prepared under my direction and personally reviewed by me in its entirety. I confirm that the note above accurately reflects all work, treatment, procedures, and medical decision making performed by me. Departure Information Dispostion Home / Self-Care Referrals Gertrude Lee .MAVIS (PCP) Forms HOME CARE DOCUMENTATION FORM, IMPORTANT VISIT INFORMATION Patient Instructions ED Diet High Potassium, My [facility] Additional Instructions Drink extra fluids. Follow-up with your neurologist as soon as possible. Increase potassium in your diet. Follow-up with your family physician regarding your elevated blood pressure. Problem Qualifiers
[2016-09-07] MEDS ORDERED: SODIUM CHLORIDE 0.9% 1000ML 1,000 ML IV ONE (13:00)
[2016-09-07 13:09] LABS: HEMATOCRIT 38.6 % (42-52); MEAN CELL VOLUME 79.8 fL (80-100); MEAN CORPUSCULAR HEMOGLOBIN 25.6 pg (25-34); MEAN CORPUSCULAR HGB CONC 32.1 g/dl (32-36); MEAN PLATELET VOLUME 9.3 fL (7.4-10.4); PLATELET COUNT 199 K/uL (130-400); RED BLOOD COUNT 4.84 M/uL (4.7-6.1); WHITE BLOOD COUNT 6.04 K/uL (4.8-10.8)
[2016-09-07 13:28] LABS: BUN/CREATININE RATIO 6.1 (10-20); CALCIUM 9.2 mg/dl (8.5-10.1); CREATININE 1.3 mg/dl (0.60-1.40); POTASSIUM 3.3 mmol/L (3.5-5.1)
[2016-09-07 14:08] VITALS: BP 156/102; PULSE 97; O2SAT 97
== END 2016-09-07 14:33 | disposition home or self-care (01) ==
LOC: C.EDB 12:23 → C.EDC 14:33
DX: F43.10 Post-traumatic stress disorder, unspecified (principal); E87.6 Hypokalemia; I10 Essential (primary) hypertension; R51 Headache; R11.10 Vomiting, unspecified; R20.0 Anesthesia of skin; J45.909 Unspecified asthma, uncomplicated; Z79.899 Other long term (current) drug therapy; Z82.3 Family history of stroke; Z82.49 Family history of ischemic heart disease and other diseases of the circulatory system; Z83.3 Family history of diabetes mellitus; Z83.6 Family history of other diseases of the respiratory system; Z84.1 Family history of disorders of kidney and ureter

== ENCOUNTER → 2016-09-07 | Outpatient (CLI) | payer OTHER ==
[~2016-09-07] MED LIST changes: +ADVIN25/60 INH; -FLUT1INH INH; +ONDA4TAB10 SL
[2016-09-07 13:03] LABS: ALT/SGPT 96 U/L (12-78); AST/SGOT 95 U/L (15-37); BLOOD UREA NITROGEN 9 mg/dl (7-18); BUN/CREATININE RATIO 6.1 (10-20); CALCIUM 9.3 mg/dl (8.5-10.1); CARBON DIOXIDE 29 mmol/L (21-32); CHLORIDE 102 mmol/L (98-107); CHOLESTEROL 172 mg/dl (0-200); GLUCOSE,FASTING 102 mg/dl (70-99); POTASSIUM 3.4 mmol/L (3.5-5.1); SODIUM 139 mmol/L (136-145)
[2016-09-07 13:06] LABS: ALB/GLOB RATIO 1.1 (0.9-2); ALKALINE PHOSPHATASE 62 U/L (45-117); CHOLESTEROL/HDL RATIO 4.2; HDL CHOLESTEROL 41 mg/dl; TRIGLYCERIDES 401 mg/dl (0-150)
== END | disposition home or self-care (01) ==
LOC: C.LABPBG 10:32
PROVIDERS: ATTEND Physician Assistant
DX: Z00.00 Encounter for general adult medical examination without abnormal findings (principal)

== ENCOUNTER 2016-11-30 11:50 | Emergency (ER) | payer OTHER ==
[~2016-11-30] VITALS: Ht 182.9 cm; Wt 103.0 kg
[2016-11-30 12:00] VITALS: Ht 182.9 cm; Wt 103.0 kg
[2016-11-30] MEDS ORDERED: ONDANSETRON INJ 2 MG/ML 2 ML VIAL IV STA (12:27)
[2016-11-30] MEDS ORDERED: SODIUM CHLORIDE 0.9% 1000ML 1,000 ML IV STA (12:27)
[2016-11-30] MEDS ORDERED: MoRPHine SULFATE 4 MG/ML 1 ML CARP\\VIAL IV STA ×2 (12:27→13:41)
--- NOTE | 2016-11-30 12:30 | EMERGENCY ROOM VISIT NOTE ---
History Report prepared by Luz: Kelin Rivas Under the Supervision of: Dr. Kyle Helm M.D. First contact with patient: 12:18 Chief Complaint: OTHER COMPLAINT Stated Complaint: ILLNESS History of Present Illness The patient is a 31 year old male who presents to the Emergency Room with complaints of generalized illness. The patient notes that he fell 4 years ago and hit the back of his head. The patient has had intermittent numbness on the left side of his body since the fall. He also notes stuttering and slurred speech which has been intermittent for the past week. He went to his family doctor today for a check up and was referred to the ED because his "heart rate and blood pressure were high" . He notes a headache and denies shortness of breath, abdominal pain, or chest pain. The patient states he has had migraines for the past couple years. Source of History: patient Position: other (generalized) Quality: other (illness) Associated Symptoms: No chest pain, No SOB, No abdominal pain Review of Systems See HPI for pertinent positives & negatives. A total of 10 systems reviewed and were otherwise negative. Past Medical & Surgical Medical Problems: (1) Asthma (2) Bilateral flank pain (3) Malingerer (4) Postconcussive syndrome (5) PTSD (post-traumatic stress disorder) Social History Problems: (1) Drug-seeking behavior Old medical records were reviewed. Nurse's notes were reviewed and I agree with. Family History Asthma Cancer Diabetes mellitus FH: heart disease FHx: lung disease Hypertension Kidney disease Kidney stones Stroke Social History Smoking Status: Never Smoker Drug Use: none Marital Status: single Housing Status: lives with family Occupation Status: unemployed Current/Historical Medications Scheduled Albuterol Hfa (Ventolin Hfa), 2-4 PUFFS INH BID Albuterol Sulf (Proventil 0.083% 2.5MG/3ML), 2.5 MG INH PRN Fluticasone Prop/Salmeterol (Advair Diskus 250/50 60 Dose), 2 PUFF INH BID Allergies Coded Allergies: Penicillins (Verified Allergy, Intermediate, ITCHY BLOTCHES, 08/14/16) Naproxen (Unverified Allergy, Unknown, ITCHY, 08/14/16) Red Dye (Verified Allergy, Unknown, HIVES, 08/14/16) Physical Exam Vital Signs Date Time Temp Pulse Resp B/P (MAP) Pulse Ox O2 Delivery O2 Flow Rate FiO2 11/30/16 16:14 36.7 120 151/99 95 Room Air 11/30/16 13:59 120 12 129/96 96 Room Air 11/30/16 13:15 126 136/93 96 11/30/16 12:28 130 11/30/16 12:00 36.7 128 20 153/115 97 Room Air Physical Exam General: Non-ill appearing young male in no acute distress. HEENT: Normal cephalic atraumatic. Pupils are equal round and reactive to light. Extraocular movements are intact. Oropharynx is pink with moist mucous membranes. No swelling of the mouth lips or tongue. Neck: Supple with a midline trachea. No meningeal signs or stiffness, no JVD or bruits. No Stridor. Chest: Clear to auscultation bilaterally. No wheezes or rhonchi. No increased work of breathing. Heart: regular rate and rhythm. Abdomen: Soft nontender, nondistended without rebound guarding or rigidity. Extremities: No cyanosis clubbing or edema. No calf tenderness or assymetry Spine/Back. Non tender to palpation. No CVA tenderness Skin: Good turgor without rashes. Neurologic exam: Cranial nerves two through 12 are intact. Motor and sensation are intact and symmetrical throughout. Subjective left arm numbness. Medical Decision & Procedures ER Provider Diagnostic Interpretation: Radiology results as stated below per my review and radiologist interpretation: CHEST ONE VIEW PORTABLE FINDINGS: The cardiac and mediastinal contours are normal. There is no evidence of focal pulmonary consolidation. There is no evidence of failure. No pleural effusions are visualized.[ IMPRESSION: No active disease in the chest. Electronically signed by: Ananda Jones M.D. CT SCAN OF THE BRAIN WITHOUT IV CONTRAST FINDINGS: Brain parenchyma: The brain parenchyma is normal in appearance. There is no hemorrhage, mass effect, or evidence of acute territorial ischemia by CT criteria. Roldan-white matter is preserved. No extra-axial fluid collection is seen. Ventricles, sulci, cisterns: Normal in configuration. Intracranial vasculature: The visualized intracranial vasculature at the skull base is normal in appearance. Calvarium: Unremarkable. Sinuses and mastoids: The visualized paranasal sinuses are clear. The mastoid air cells are well pneumatized. Orbits: The bony orbits are grossly intact. IMPRESSION: No acute intracranial abnormality. Electronically signed by: Compa Vilbert, M.D. BILIARY ULTRASOUND FINDINGS: There is increased hepatic echogenicity, nonspecific finding most often seen in hepatic steatosis. Hepatic echotexture is also coarsened. There is a 1 cm hypodensity within the right lobe of the liver, similar in size to the prior CT scan. There is no intra or extrahepatic biliary ductal dilatation. The common buttock measures 5 mm. The gallbladder appears sonographically normal. There is no right-sided hydronephrosis. There is a 4 mm echogenic focus in the right kidney likely representing a calculus. The pancreas was poorly visualized. IMPRESSION: 1. Suboptimal evaluation of the pancreas 2. No gallstones identified. No ductal dilatation 3. Suspected 4 mm right renal calculus 5. Increased hepatic echogenicity, most likely secondary to hepatic steatosis. Stable 1 cm lesion within the right hepatic lobe Electronically signed by: Ananda Jones M.D. Laboratory Results 11/30/16 11:22 Red Blood Count 6.15, Mean Corpuscular Volume 83.6, Mean Corpuscular Hemoglobin 26.7, Mean Corpuscular Hemoglobin Concent 31.9, Mean Platelet Volume 10.4, Neutrophils (%) (Auto) 62.8, Lymphocytes (%) (Auto) 27.4, Monocytes (%) (Auto) 7.7, Eosinophils (%) (Auto) 0.8, Basophils (%) (Auto) 0.8, Neutrophils # (Auto) 5.43, Lymphocytes # (Auto) 2.37, Monocytes # (Auto) 0.67, Eosinophils # (Auto) 0.07, Basophils # (Auto) 0.07 11/30/16 13:27 Test 11/30/16 11:22 11/30/16 13:27 White Blood Count 8.65 K/uL (4.8-10.8) Red Blood Count 6.15 M/uL (4.7-6.1) Hemoglobin 16.4 g/dL (14.0-18.0) Hematocrit 51.4 % (42-52) Mean Corpuscular Volume 83.6 fL (80-100) Mean Corpuscular Hemoglobin 26.7 pg (25-34) Mean Corpuscular Hemoglobin Concent 31.9 g/dl (32-36) Platelet Count 364 K/uL (130-400) Mean Platelet Volume 10.4 fL (7.4-10.4) Neutrophils (%) (Auto) 62.8 % Lymphocytes (%) (Auto) 27.4 % Monocytes (%) (Auto) 7.7 % Eosinophils (%) (Auto) 0.8 % Basophils (%) (Auto) 0.8 % Neutrophils # (Auto) 5.43 K/uL (1.4-6.5) Lymphocytes # (Auto) 2.37 K/uL (1.2-3.4) Monocytes # (Auto) 0.67 K/uL (0.11-0.59) Eosinophils # (Auto) 0.07 K/uL (0-0.5) Basophils # (Auto) 0.07 K/uL (0-0.2) RDW Standard Deviation 45.8 fL (36.4-46.3) RDW Coefficient of Variation 15.2 % (11.5-14.5) Immature Granulocyte % (Auto) 0.5 % Immature Granulocyte # (Auto) 0.04 K/uL (0.00-0.02) Nucleated RBC Absolute Count (auto) 0.02 K/uL (0-0) Nucleated Red Blood Cells % 0.3 % Total Bilirubin 2.9 mg/dl (0.2-1) Direct Bilirubin 0.8 mg/dl (0-0.2) Aspartate Amino Transf (AST/SGOT) 138 U/L (15-37) Alanine Aminotransferase (ALT/SGPT) 106 U/L (12-78) Alkaline Phosphatase 103 U/L (45-117) Troponin I < 0.015 ng/ml (0-0.045) Total Protein 8.9 gm/dl (6.4-8.2) Albumin 4.8 gm/dl (3.4-5.0) Lipase 125 U/L (73-393) Anion Gap 12.0 mmol/L (3-11) Est Creatinine Clear Calc Drug Dose 93.2 ml/min Estimated GFR () 76.0 Estimated GFR (Non- 65.5 BUN/Creatinine Ratio 7.4 (10-20) Calcium Level 9.3 mg/dl (8.5-10.1) Laboratory studies as stated above per my review. Medications Administered Medications (Trade) Dose Ordered Sig/Reena Route Start Time Stop Time Status Last Admin Dose Admin Sodium Chloride 1,000 ml @ 999 mls/hr Q1H1M STAT IV 11/30/16 12:27 11/30/16 13:27 DC 11/30/16 12:53 999 MLS/HR Morphine Sulfate (MoRPHine SULFATE INJ) 4 mg NOW STAT IV 11/30/16 12:27 11/30/16 12:29 DC 11/30/16 12:56 4 MG Ondansetron HCl (Zofran Inj) 4 mg NOW STAT IV 11/30/16 12:27 11/30/16 12:29 DC 11/30/16 12:54 4 MG Morphine Sulfate (MoRPHine SULFATE INJ) 4 mg NOW STAT IV 11/30/16 13:41 11/30/16 13:46 DC 11/30/16 13:51 4 MG Hydromorphone HCl (Dilaudid Inj) 1 mg NOW STAT IV 11/30/16 15:09 11/30/16 15:10 DC 11/30/16 15:09 1 MG Potassium Chloride (Klor-Con M10) 40 meq NOW STAT PO 11/30/16 15:38 11/30/16 15:40 DC 11/30/16 16:01 40 MEQ ECG Indication: other (headache) Rate (beats per minute): 120 Rhythm: sinus tachycardia Findings: other (nonspecific ST abnormality) Comparison ECG Date: no prior available ED Course 1219: Past medical records reviewed. The patient was evaluated in room A12A, and a complete history and physical examination were performed. 1227: Zofran HCl 4 mg IV, Morphine Sulfate 4 mg IV, Sodium Chloride 1000 ml @ 999 mls/hr IV. 1341: I talked to patient and his mother. He reports no abdominal pain. 1341: Morphine Sulfate 4 mg IV. 1509: Dilaudid Inj 1 mg IV. 1538: Potassium Chloride 40 meq PO. 1553: Upon reevaluation, the patient is resting. I discussed the results and treatment plan with the patient. He verbalized agreement of the treatment plan. The patient was discharged home. Medical Decision Differential diagnosis includes: intracranial process, acute exacerbation of chronic medical problem, arrhythmia, migraine, electrolyte metabolic abnormality. This patient comes in as described above. He was placed in room a 12. He has some tingling in his left side that's been going on for 4 years . It comes and goes since he had a head injury . He also has trouble finding words again this comes and goes as well as the sensory and nothing acute today. He does not have any new any symptoms that would suggest acute stroke. He had a new doctor' s appointment today and was noted that he was tachycardic is also complains of a headache which he suffers from chronically. He is not driving. IV access established a did a CAT scan of his head EKG and multiple blood testing was obtained he was also given IV hydration as well as morphine 4 mg IV and Zofran 4 mg IV. He was reassessed frequently. EKG does not show any definite ischemic changes or significant arrhythmia. CAT scan his has unremarkable. Chest x-ray was unremarkable. His potassium was mildly low, he was repleted with oral potassium. He shows abnormalities. No other significant electrolyte or metabolic abdomen is. Liver functions are mildly elevated and ultrasound there is no abnormalities. He denies taking any Tylenol. He was given additional IV morphine. He also received Dilaudid 1 mg IV is feeling much better. He is a lot of symptoms which seem to be chronic. I do think he should follow-up with his regular doctor and return if: increasing pain, worsening of symptoms, any new problems or concerns. Medication Reconcilliation Current Medication List: was personally reviewed by me Blood Pressure Screening Patient's blood pressure: Elevated blood pressure Blood pressure disposition: Elevated BP felt to be situational Impression Primary Impression: Headache Scribe Attestation The scribe's documentation has been prepared under my direction and personally reviewed by me in its entirety. I confirm that the note above accurately reflects all work, treatment, procedures, and medical decision making performed by me. Departure Information Dispostion Home / Self-Care Referrals Gertrude Lee .MAVIS (PCP) Forms HOME CARE DOCUMENTATION FORM, IMPORTANT VISIT INFORMATION, WORK / SCHOOL INSTRUCTIONS Patient Instructions [facility] [employer] Additional Instructions Rest. Drink plenty of fluids. Increase your dietary potassium Return to the ER if: Increasing pain, worsening of symptoms, fever or chills, increasing numbness or weakness, any new problems or concerns. Follow-up with your doctor in 1-2 days for recheck
--- NOTE | 2016-11-30 12:48 | DIAGNOSTIC IMAGING REPORT ---
CHEST ONE VIEW PORTABLE CLINICAL HISTORY: Atypical chest pain COMPARISON STUDY: No previous studies for comparison. FINDINGS: The cardiac and mediastinal contours are normal. There is no evidence of focal pulmonary consolidation. There is no evidence of failure. No pleural effusions are visualized.[ IMPRESSION: No active disease in the chest. Electronically signed by: Ananda Jones M.D. 11/30/2016 12:47 PM Dictated Date/Time: 11/30/2016 12:47 PM
[2016-11-30 12:54] LABS: BASO % 0.8 %; BASO ABS # 0.07 K/uL (0-0.2); COMPLETE YES; EOS % 0.8 %; HEMATOCRIT 51.4 % (42-52); IG% 0.5 %; LYMPH % 27.4 %; LYMPH ABS # 2.37 K/uL (1.2-3.4); MEAN CELL VOLUME 83.6 fL (80-100); MEAN CORPUSCULAR HEMOGLOBIN 26.7 pg (25-34); MEAN CORPUSCULAR HGB CONC 31.9 g/dl (32-36); MEAN PLATELET VOLUME 10.4 fL (7.4-10.4); MONO % 7.7 %; NEUT % 62.8 %; PLATELET COUNT 364 K/uL (130-400); RED BLOOD COUNT 6.15 M/uL (4.7-6.1); WHITE BLOOD COUNT 8.65 K/uL (4.8-10.8)
[2016-11-30 13:13] LABS: ALKALINE PHOSPHATASE 103 U/L (45-117); ALT/SGPT 106 U/L (12-78); AST/SGOT 138 U/L (15-37)
--- NOTE | 2016-11-30 13:22 | DIAGNOSTIC IMAGING REPORT ---
CT SCAN OF THE BRAIN WITHOUT IV CONTRAST CLINICAL HISTORY: Headache. Chronic left arm numbness. COMPARISON STUDY: No priors. TECHNIQUE: Unenhanced axial CT scan of the brain is performed from the vertex to the skull base. A dose lowering technique was utilized adhering to the principles of ALARA. CT DOSE: 638.84 mGy.cm FINDINGS: Brain parenchyma: The brain parenchyma is normal in appearance. There is no hemorrhage, mass effect, or evidence of acute territorial ischemia by CT criteria. Roldan-white matter is preserved. No extra-axial fluid collection is seen. Ventricles, sulci, cisterns: Normal in configuration. Intracranial vasculature: The visualized intracranial vasculature at the skull base is normal in appearance. Calvarium: Unremarkable. Sinuses and mastoids: The visualized paranasal sinuses are clear. The mastoid air cells are well pneumatized. Orbits: The bony orbits are grossly intact. IMPRESSION: No acute intracranial abnormality. Electronically signed by: Compa Ortez M.D. 11/30/2016 1:21 PM Dictated Date/Time: 11/30/2016 1:10 PM
[2016-11-30 14:04] LABS: BUN/CREATININE RATIO 7.4 (10-20); CALCIUM 9.3 mg/dl (8.5-10.1); CREATININE 1.4 mg/dl (0.60-1.40); POTASSIUM 3.2 mmol/L (3.5-5.1)
--- NOTE | 2016-11-30 14:57 | DIAGNOSTIC IMAGING REPORT ---
BILIARY ULTRASOUND CLINICAL HISTORY: Epigastric pain COMPARISON STUDY: CT scan dated 05/09/2016 FINDINGS: There is increased hepatic echogenicity, nonspecific finding most often seen in hepatic steatosis. Hepatic echotexture is also coarsened. There is a 1 cm hypodensity within the right lobe of the liver, similar in size to the prior CT scan. There is no intra or extrahepatic biliary ductal dilatation. The common buttock measures 5 mm. The gallbladder appears sonographically normal. There is no right-sided hydronephrosis. There is a 4 mm echogenic focus in the right kidney likely representing a calculus. The pancreas was poorly visualized. IMPRESSION: 1. Suboptimal evaluation of the pancreas 2. No gallstones identified. No ductal dilatation 3. Suspected 4 mm right renal calculus 5. Increased hepatic echogenicity, most likely secondary to hepatic steatosis. Stable 1 cm lesion within the right hepatic lobe Electronically signed by: Ananda Jones M.D. 11/30/2016 2:55 PM Dictated Date/Time: 11/30/2016 2:52 PM
[2016-11-30] MEDS ORDERED: HYDROmorphone INJ 1 MG/ML SYR IV STA (15:09)
[2016-11-30] MEDS ORDERED: POTASSIUM CHLORIDE 10 MEQ TABCR PO STA (15:38)
[2016-11-30 16:14] VITALS: BP 151/99; PULSE 120; TEMP 36.7; O2SAT 95
== END 2016-11-30 16:15 | disposition home or self-care (01) ==
LOC: EDBD 11:50 → C.EDA 11:51
DX: R51 Headache (principal); R00.0 Tachycardia, unspecified; J45.909 Unspecified asthma, uncomplicated; Z87.820 Personal history of traumatic brain injury; Z88.0 Allergy status to penicillin; Z88.8 Allergy status to other drugs, medicaments and biological substances; Z80.9 Family history of malignant neoplasm, unspecified; Z83.3 Family history of diabetes mellitus; Z82.49 Family history of ischemic heart disease and other diseases of the circulatory system; Z84.1 Family history of disorders of kidney and ureter; Z82.3 Family history of stroke; Z82.5 Family history of asthma and other chronic lower respiratory diseases

== ENCOUNTER 2016-12-14 12:18 | Inpatient (IN) | payer OTHER ==
[~2016-12-14] VITALS: Ht 185.4 cm; Wt 97.3 kg
[~2016-12-14 12:18] MED LIST changes: -ONDA4TAB10 SL; -SERT-234 PO
[2016-12-14] MEDS ORDERED: ONDANSETRON INJ 2 MG/ML 2 ML VIAL IV STA (12:53)
[2016-12-14] MEDS ORDERED: SODIUM CHLORIDE 0.9% 500ML 500 ML IV STA ×2 (12:53→14:50)
[2016-12-14] MEDS ORDERED: MoRPHine SULFATE 4 MG/ML 1 ML CARP\\VIAL IV STA ×3 (12:53→17:06)
[2016-12-14] MEDS ORDERED: VERA1CAP5 PO (12:56)
[2016-12-14] MEDS ORDERED: AMIT25TA9 PO (12:56)
[2016-12-14] MEDS ORDERED: D5W AND NSS 1,000 ML IV SCH (13:00)
[2016-12-14 13:35] LABS: BASO % 0.6 %; BASO ABS # 0.06 K/uL (0-0.2); COMPLETE YES; EOS % 0.4 %; HEMATOCRIT 47.7 % (42-52); IG% 0.2 %; LYMPH % 29.3 %; LYMPH ABS # 2.88 K/uL (1.2-3.4); MEAN CELL VOLUME 82.8 fL (80-100); MEAN CORPUSCULAR HEMOGLOBIN 27.3 pg (25-34); MEAN CORPUSCULAR HGB CONC 32.9 g/dl (32-36); MEAN PLATELET VOLUME 10.5 fL (7.4-10.4); MONO % 9.3 %; NEUT % 60.2 %; PLATELET COUNT 317 K/uL (130-400); RED BLOOD COUNT 5.76 M/uL (4.7-6.1); WHITE BLOOD COUNT 9.84 K/uL (4.8-10.8)
[2016-12-14 13:42] LABS: URINE APPEARANCE CLOUDY (CLEAR); URINE COLOR ORANGE; URINE EPITHELIAL CELL AUTO 0-5 /lpf (0-5); URINE NITRITE POS (NEG); URINE PH 8.5 (4.5-7.5); URINE SPECIFIC GRAVITY 1.018 (1.000-1.030); UROBILINOGEN NEG (NEG); ZZUR CULT IF INDIC CLEAN CATCH YES
[2016-12-14 13:55] LABS: BUN/CREATININE RATIO 8.7 (10-20); CALCIUM 9.1 mg/dl (8.5-10.1); CREATININE 1.45 mg/dl (0.60-1.40); MAGNESIUM 1.5 mg/dl (1.8-2.4); POTASSIUM 2.8 mmol/L (3.5-5.1)
[2016-12-14 14:02] LABS: MANUAL MICROSCOPIC REQUIRED? NO; REVIEW REQ? NO; SULFASALICYLIC ACID NEG (NEG); URINE BILIRUBIN 1+ (NEG)
--- NOTE | 2016-12-14 14:12 | EMERGENCY ROOM VISIT NOTE ---
History Report prepared by Luz: Karla Chris Under the Supervision of: Dr. Radha Lira M.D. First contact with patient: 12:40 Chief Complaint: VOMITING Stated Complaint: VOMITING BILE, BLOOD W/SEVERE RT SIDE PAIN Nursing Triage Summary: pt to the ED with RUQ pain with n/v bile and blood for the past 4 days History of Present Illness The patient is a 31 year old male who presents to the Emergency Room with complaints of intermittent vomiting for the past 4 days. He states that he has been projectile vomiting bright green bile. He has noticed some blood in his vomit as well. He has been unable to keep and food or fluids down. The patient also reports nausea, RUQ abdominal pain, and right flank pain. His pain is worsened with palpation. He rates his pain as a 9/10 in severity. The patient denies diarrhea. He was seen in the ED on 11/30/16. He had imaging done at that time that showed a kidney stone within the right kidney. He called his PCP today with his symptoms and was advised to come to the ED for further evaluation. Source of History: patient Onset: 4 days ago Position: abdomen Symptom Intensity: 9/10 Quality: other (vomiting) Timing: intermittent Modifying Factors (Worsening): eating, drinking Associated Symptoms: + nausea, + abdominal pain, No diarrhea Note: Pt has right flank pain. Review of Systems See HPI for pertinent positives & negatives. A total of 10 systems reviewed and were otherwise negative. Past Medical & Surgical Medical Problems: (1) Abdominal pain (2) Asthma (3) Bilateral flank pain (4) Malingerer (5) Postconcussive syndrome (6) PTSD (post-traumatic stress disorder) Social History Problems: (1) Drug-seeking behavior Family History Asthma Cancer Diabetes mellitus FH: heart disease FHx: lung disease Hypertension Kidney disease Kidney stones Stroke Social History Smoking Status: Current Every Day Smoker Drug Use: none Marital Status: single Housing Status: lives with family Occupation Status: unemployed Current/Historical Medications Scheduled Albuterol Hfa (Ventolin Hfa), 2-4 PUFFS INH BID Albuterol Sulf (Proventil 0.083% 2.5MG/3ML), 2.5 MG INH PRN Amitriptyline Hcl (Elavil), 25 MG PO HS Fluticasone Prop/Salmeterol (Advair Diskus 250/50 60 Dose), 2 PUFF INH BID Verapamil (Verelan Pm), 100 MG PO QAM Allergies Coded Allergies: Penicillins (Verified Allergy, Intermediate, ITCHY BLOTCHES, 12/14/16) Naproxen (Unverified Allergy, Unknown, ITCHY, 12/14/16) Red Dye (Verified Allergy, Unknown, HIVES, 12/14/16) Physical Exam Vital Signs Date Time Temp Pulse Resp B/P (MAP) Pulse Ox O2 Delivery O2 Flow Rate FiO2 12/14/16 15:41 118 20 131/108 95 Room Air 12/14/16 14:35 120 18 132/86 92 Room Air 12/14/16 13:36 125 12/14/16 12:26 37.1 140 18 129/95 98 Physical Exam Vital signs reviewed. General: Well-appearing male, in no significant distress. HEENT: No scleral icterus, PERRLA, neck supple. Atraumatic. Cardiovascular: Tachycardic rate and regular rhythm, no extra sounds. Pulmonary: Clear to auscultation bilaterally, normal work of breathing. Abdomen: Soft, positive RUQ tenderness, positive right CVA tenderness, nondistended, positive bowel sounds. Musculoskeletal: Atraumatic, no peripheral edema. Neurologic: Patient awake alert and oriented x 3 Skin: Warm, dry, no rash Medical Decision & Procedures ER Provider Diagnostic Interpretation: Radiology results as stated below per my review and radiologist interpretation: (RENAL)RETROPERITON COMP CLINICAL HISTORY: 31 years-old Male presenting with right renal calculus. TECHNIQUE: Real-time grayscale ultrasound imaging of the kidneys and bladder was performed. COMPARISON: 05/26/2016. FINDINGS: Right kidney: Normal echogenicity. Right kidney measures 11.4 cm. No hydronephrosis. No convincing evidence of calculus or mass. Left kidney: Normal echogenicity. Left kidney measures 11.8 cm. No hydronephrosis. No convincing evidence of calculus or mass. Bladder: Decompressed. Other: Hyperechogenicity of the liver could suggest hepatic steatosis. IMPRESSION: 1. Normal renal ultrasound. No obstruction. 2. Suggestion of hepatic steatosis. Electronically signed by: Mo Parry M.D. 12/14/2016 2:40 PM Dictated Date/Time: 12/14/2016 2:39 PM KUB CLINICAL HISTORY: vomiting, R renal calculus nausea COMPARISON STUDY: 05/26/2016 FINDINGS: Interval removal of the bilateral ureteral stents. No significant current nephrocalcinosis. Density immediately adjacent to the right transverse process of L3 felt to represent artifact with the tip of the transverse process and interposed bowel. No definite urinary tract calcification is appreciated. IMPRESSION: Normal study. Interval removal of the ureteral stents. No definite urinary tract calcifications The above report was generated using voice recognition software. It may contain grammatical, syntax or spelling errors. Electronically signed by: Derik Collier M.D. 12/14/2016 2:14 PM Dictated Date/Time: 12/14/2016 2:12 PM Laboratory Results 12/14/16 13:13 Red Blood Count 5.76, Mean Corpuscular Volume 82.8, Mean Corpuscular Hemoglobin 27.3, Mean Corpuscular Hemoglobin Concent 32.9, Mean Platelet Volume 10.5, Neutrophils (%) (Auto) 60.2, Lymphocytes (%) (Auto) 29.3, Monocytes (%) (Auto) 9.3, Eosinophils (%) (Auto) 0.4, Basophils (%) (Auto) 0.6, Neutrophils # (Auto) 5.92, Lymphocytes # (Auto) 2.88, Monocytes # (Auto) 0.92, Eosinophils # (Auto) 0.04, Basophils # (Auto) 0.06 12/14/16 13:13 Test 12/14/16 13:13 12/14/16 13:20 White Blood Count 9.84 K/uL (4.8-10.8) Red Blood Count 5.76 M/uL (4.7-6.1) Hemoglobin 15.7 g/dL (14.0-18.0) Hematocrit 47.7 % (42-52) Mean Corpuscular Volume 82.8 fL (80-100) Mean Corpuscular Hemoglobin 27.3 pg (25-34) Mean Corpuscular Hemoglobin Concent 32.9 g/dl (32-36) Platelet Count 317 K/uL (130-400) Mean Platelet Volume 10.5 fL (7.4-10.4) Neutrophils (%) (Auto) 60.2 % Lymphocytes (%) (Auto) 29.3 % Monocytes (%) (Auto) 9.3 % Eosinophils (%) (Auto) 0.4 % Basophils (%) (Auto) 0.6 % Neutrophils # (Auto) 5.92 K/uL (1.4-6.5) Lymphocytes # (Auto) 2.88 K/uL (1.2-3.4) Monocytes # (Auto) 0.92 K/uL (0.11-0.59) Eosinophils # (Auto) 0.04 K/uL (0-0.5) Basophils # (Auto) 0.06 K/uL (0-0.2) RDW Standard Deviation 44.9 fL (36.4-46.3) RDW Coefficient of Variation 15.0 % (11.5-14.5) Immature Granulocyte % (Auto) 0.2 % Immature Granulocyte # (Auto) 0.02 K/uL (0.00-0.02) Anion Gap 13.0 mmol/L (3-11) Est Creatinine Clear Calc Drug Dose 90.5 ml/min Estimated GFR () 72.8 Estimated GFR (Non- 62.8 BUN/Creatinine Ratio 8.7 (10-20) Calcium Level 9.1 mg/dl (8.5-10.1) Magnesium Level 1.5 mg/dl (1.8-2.4) Total Bilirubin 4.7 mg/dl (0.2-1) Direct Bilirubin 0.9 mg/dl (0-0.2) Aspartate Amino Transf (AST/SGOT) 83 U/L (15-37) Alanine Aminotransferase (ALT/SGPT) 75 U/L (12-78) Alkaline Phosphatase 126 U/L (45-117) Total Protein 8.0 gm/dl (6.4-8.2) Albumin 4.0 gm/dl (3.4-5.0) Lipase 133 U/L (73-393) Urine Color ORANGE Urine Appearance CLOUDY (CLEAR) Urine pH 8.5 (4.5-7.5) Urine Specific [place] 1.018 (1.000-1.030) Urine Protein NEG (NEG) Urine Glucose (UA) NEG (NEG) Urine Ketones TRACE (NEG) Urine Occult Blood TRACE (NEG) Urine Nitrite POS (NEG) Urine Bilirubin 1+ (NEG) Urine Urobilinogen NEG (NEG) Urine Leukocyte Esterase LARGE (NEG) Urine WBC (Auto) >30 /hpf (0-5) Urine RBC (Auto) 5-10 /hpf (0-4) Urine Hyaline Casts (Auto) 1-5 /lpf (0-5) Urine Epithelial Cells (Auto) 0-5 /lpf (0-5) Urine Bacteria (Auto) NEG (NEG) Laboratory results per my review. Medications Administered Medications (Trade) Dose Ordered Sig/Reena Route Start Time Stop Time Status Last Admin Dose Admin Sodium Chloride 500 ml @ 999 mls/hr Q31M STAT IV 12/14/16 12:53 12/14/16 13:23 DC 12/14/16 13:25 999 MLS/HR Dextrose/Sodium Chloride 1,000 ml @ 150 mls/hr Q6H40M IV 12/14/16 13:00 01/13/17 12:59 12/14/16 13:25 150 MLS/HR Ondansetron HCl (Zofran Inj) 4 mg NOW STAT IV 12/14/16 12:53 12/14/16 12:58 DC 12/14/16 13:24 4 MG Morphine Sulfate (MoRPHine SULFATE INJ) 4 mg NOW STAT IV 12/14/16 12:53 12/14/16 12:58 DC 12/14/16 13:25 4 MG Potassium Chloride (Klor-Con M10) 40 meq NOW STAT PO 12/14/16 14:37 12/14/16 14:38 DC 12/14/16 15:29 40 MEQ Ciprofloxacin/ Dextrose (Cipro / D5W) 400 mg NOW STAT IV 12/14/16 14:49 12/14/16 14:50 DC 12/14/16 15:37 400 MG Morphine Sulfate (MoRPHine SULFATE INJ) 4 mg NOW STAT IV 12/14/16 14:50 12/14/16 14:52 DC 12/14/16 15:27 4 MG Sodium Chloride 500 ml @ 999 mls/hr Q31M STAT IV 12/14/16 14:50 12/14/16 15:20 DC 12/14/16 14:50 999 MLS/HR Magnesium Sulfate (Magnesium Sulfate) 2 gm NOW STAT IV 12/14/16 15:10 12/14/16 15:11 DC 12/14/16 15:30 2 GM Potassium Chloride 10 meq/ Prmx 100 ml @ 100 mls/hr Q1H IV 12/14/16 16:00 12/14/16 17:59 12/14/16 15:51 100 MLS/HR ED Course 1240: Past medical records reviewed. The patient was evaluated in room A3. A complete history and physical examination was performed. 1253: Morphine sulfate 4 mg IV, Zofran 4 mg IV, NSS 500 ml @ 999 mls/hr IV 1300: Dextrose/Sodium 1000 ml @ 150 mls/hr IV 1437: Klor-Con M10 40 meq PO 1448: I reassessed the patient at this time. He is still having pain. I discussed the results and treatment plan with the patient. I answered all pertaining questions that he had. He expressed understanding and verbalized agreement. 1449: Cipro 400 mg IV 1450: NSS 500 ml @ 999 mls/hr IV, Morphine sulfate 4 mg IV 1510: Magnesium Sulfate 2 gm IV, Kcl 10 meq/wtr 20 meq IV 1513: I spoke with Dr. Carlson. We discussed the patient's case. The patient will be evaluated by the [facility] for further management. Medical Decision The patient is a 31 year old male who presents to the ED with complaints of vomiting. Differentials include gastroenteritis, food borne illness, infections , appendicitis, diverticulitis, inflammatory bowel disease, obstruction, GI bleed, biliary pathology, as well as others were entertained. This patient was evaluated and appeared to be in no significant distress. IV access was obtained and laboratory work was drawn. The patient is noted to be tachycardic. He is tender to palpation the right upper quadrant with right CVA tenderness. There is a previously documented kidney stone on ultrasound. A repeat ultrasound was performed and reveals no evidence of urinary obstruction. KUB was performed with no evidence of stone and no significant bowel obstruction. Patient was hydrated with normal saline solution. His laboratory work reveals a hypokalemia at 2.8, hypomagnesemia and an elevated total bilirubin of 4.7. Etiology of the elevated bilirubin is unclear. An ultrasound of right upper quadrant was then performed and reveals no evidence of acute cholecystitis and no obstruction of the common bile duct. Urinalysis reveals UTI. He was given 1 g of IV ceftriaxone. Given the patient's findings and symptoms. He will be evaluated by the hospitalist service for admission and further management. Medication Reconcilliation Current Medication List: was personally reviewed by me Blood Pressure Screening Patient's blood pressure: Normal blood pressure Consults Time Called: 1510 Consulting Physician: Dr. Carlson Returned Call: [address] Carlson. We discussed the patient's case. The patient will be evaluated by the [facility] for further management. Impression Primary Impression: Vomiting Additional Impressions: Elevated bilirubin Hypokalemia Hypomagnesemia UTI (urinary tract infection) Scribe Attestation The scribe's documentation has been prepared under my direction and personally reviewed by me in its entirety. I confirm that the note above accurately reflects all work, treatment, procedures, and medical decision making performed by me. Departure Information Dispostion Being Evaluated By Hospitalist Referrals Noemy Lombardi DO (PCP) Patient Instructions My [facility] Problem Qualifiers
--- NOTE | 2016-12-14 14:16 | DIAGNOSTIC IMAGING REPORT ---
KUB CLINICAL HISTORY: vomiting, R renal calculus nausea COMPARISON STUDY: 05/26/2016 FINDINGS: Interval removal of the bilateral ureteral stents. No significant current nephrocalcinosis. Density immediately adjacent to the right transverse process of L3 felt to represent artifact with the tip of the transverse process and interposed bowel. No definite urinary tract calcification is appreciated. IMPRESSION: Normal study. Interval removal of the ureteral stents. No definite urinary tract calcifications The above report was generated using voice recognition software. It may contain grammatical, syntax or spelling errors. Electronically signed by: Derik Collier M.D. 12/14/2016 2:14 PM Dictated Date/Time: 12/14/2016 2:12 PM
[2016-12-14] MEDS ORDERED: POTASSIUM CHLORIDE 10 MEQ TABCR PO STA (14:37)
--- NOTE | 2016-12-14 14:42 | DIAGNOSTIC IMAGING REPORT ---
(RENAL)RETROPERITON COMP CLINICAL HISTORY: 31 years-old Male presenting with right renal calculus. TECHNIQUE: Real-time grayscale ultrasound imaging of the kidneys and bladder was performed. COMPARISON: 05/26/2016. FINDINGS: Right kidney: Normal echogenicity. Right kidney measures 11.4 cm. No hydronephrosis. No convincing evidence of calculus or mass. Left kidney: Normal echogenicity. Left kidney measures 11.8 cm. No hydronephrosis. No convincing evidence of calculus or mass. Bladder: Decompressed. Other: Hyperechogenicity of the liver could suggest hepatic steatosis. IMPRESSION: 1. Normal renal ultrasound. No obstruction. 2. Suggestion of hepatic steatosis. Electronically signed by: Mo Parry M.D. 12/14/2016 2:40 PM Dictated Date/Time: 12/14/2016 2:39 PM
[2016-12-14] MEDS ORDERED: CIPROFLOXACIN 400MG / 200ML D5W IV STA (14:49)
[2016-12-14] MEDS ORDERED: POTASSIUM CHLORIDE 10 MEQ / 100ML WTR IV STA (15:10)
[2016-12-14] MEDS ORDERED: MAGNESIUM SULFATE 1GM / D5W 1 GM BAG IV STA (15:10)
[2016-12-14] MEDS: POTASSIUM CHLR 10MEQ / WTR IV SCH ×2 (15:51→18:55)
--- NOTE | 2016-12-14 16:36 | DIAGNOSTIC IMAGING REPORT ---
ABDOMEN LIMITED (US) HISTORY: 31 years-old Male RUQ, elevated total bilirubin acute right upper quadrant abdominal pain COMPARISON: Renal ultrasound of same day, right upper quadrant ultrasound 11/30/2016, CT abdomen and pelvis 05/09/2016 TECHNIQUE: Multiple real-time sonographic images of the abdominal right upper quadrant were obtained assessing grayscale appearance and color flow FINDINGS: Pancreas is obscured by bowel gas. Liver demonstrates increased echogenicity measuring up to 21.6 cm in length. There is also poor through transmission of the liver. No intrahepatic biliary ductal dilation. Gallbladder is unremarkable without shadowing cholelithiasis, gallbladder wall thickening or pericholecystic fluid collections. Common bile duct is normal, 0.5 cm. Previously noted right renal calculi are not identified on this study. No right-sided hydronephrosis. IMPRESSION: 1. Probable fatty infiltration of the liver. 2. No cholelithiasis or sonographic evidence of acute cholecystitis. 3. No biliary ductal dilation. The above report was generated using voice recognition software. It may contain grammatical, syntax or spelling errors. Electronically signed by: Ovidio Rodriguez M.D. 12/14/2016 4:35 PM Dictated Date/Time: 12/14/2016 4:32 PM
[2016-12-14] MEDS ORDERED: ALUMINUM/MAGNESIUM/SIMETH (MAALOX MAX) 30 ML UDC PO PRN (17:15)
[2016-12-14] MEDS ORDERED: ALBUTEROL 0.083% NEBU SOLN 3 ML VIAL INH PRN (17:15)
[2016-12-14] MEDS ORDERED: MoRPHine SULFATE 2 MG/ML CARP IV PRN (17:15)
[2016-12-14] MEDS ORDERED: MAGNESIUM HYDROXIDE SUSP 30 ML UDC PO PRN (17:15)
[2016-12-14] MEDS ORDERED: POLYETHYLENE (MIRALAX) 17 GM PACK PO PRN (17:15)
[2016-12-14] MEDS ORDERED: ALBUTEROL HFA 8 GM INHALER INH PRN (17:15)
--- NOTE | 2016-12-14 17:32 | History and Physical ---
History & Physical Date & Time of Service: Dec 14, 2016 at 17:18 Chief Complaint: Vomiting Bile, Blood W/Severe Rt Side Pain Primary Care Physician: Noemy Lombardi DO History of Present Illness Source: patient, family 31 year old male with a PMH of PE, Kidney stones, HTN , Asthma, PTSD, Bipolar, and ADHD presented to [facility] on 12/14 with a 4 day history of vomiting The vomiting started gradually 4 days ago. He has been vomiting several times per day. It has been bile in colour and has had small amount of blood in the vomitus. He has had associated abdominal pain in the RUQ which also started 4 days ago. It radiates around the back and down to his groin. He says that pain meds have helped. He says the pain is constant and he rates it as a 9/10 His only associated symptoms include loss of appetite and he has also felt warm He denies any recent sick contact, recent illness', recent take out food or recent travel or camping Past Medical/Surgical History PE 6 years ago ICU 7 years ago due to bilateral pneumonia Kidney stones 1 year ago HTN Asthma PTSD Bipolar ADHD Family History Asthma Cancer Diabetes mellitus FH: heart disease FHx: lung disease Hypertension Kidney disease Kidney stones Stroke Social History Smoking Status: Never Smoker Alcohol Use: none Drug Use: none Marital Status: single Housing status: lives with family Occupational Status: unemployed Allergies Coded Allergies: Penicillins (Verified Allergy, Intermediate, ITCHY BLOTCHES, 12/14/16) Naproxen (Unverified Allergy, Unknown, ITCHY, 12/14/16) Red Dye (Verified Allergy, Unknown, HIVES, 12/14/16) Home Medications Scheduled Albuterol Hfa (Ventolin Hfa), 2-4 PUFFS INH BID Albuterol Sulf (Proventil 0.083% 2.5MG/3ML), 2.5 MG INH PRN Amitriptyline Hcl (Elavil), 25 MG PO HS Fluticasone Prop/Salmeterol (Advair Diskus 250/50 60 Dose), 2 PUFF INH BID Verapamil (Verelan Pm), 100 MG PO QAM Review of Systems Constitutional: + problem reported (felt warm), No fever, No chills, No sweats Respiratory: No cough, No sputum, No shortness of breath, No dyspnea on exertion Cardiovascular: No chest pain, No palpitations Abdomen: + pain, + nausea, + vomiting, No diarrhea, No constipation, No GI bleeding Musculoskeletal: No joint pain, No muscle pain Genitourinary - Male: No hematuria, No dysuria Endocrine: No fatigue Hematologic / Lymphatic: No abnormal bleeding/bruising, No clotting problems Physical Exam Vital Signs Date Time Temp Pulse Resp B/P (MAP) Pulse Ox O2 Delivery O2 Flow Rate FiO2 12/14/16 15:41 118 20 131/108 95 Room Air 12/14/16 14:35 120 18 132/86 92 Room Air 12/14/16 13:36 125 12/14/16 12:26 37.1 140 18 129/95 98 General Appearance: + mild distress ENT: hearing grossly normal, pharynx normal Respiratory/Chest: lungs clear, normal breath sounds, no respiratory distress, no accessory muscle use Cardiovascular: regular rate, rhythm, no edema, no murmur, normal peripheral pulses Abdomen/GI: normal bowel sounds, soft, + tenderness (in the RUQ and Right middle quadrant) Back: + right CVA tenderness Extremities/Musculoskelatal: no pedal edema, normal range of motion, non-tender Neurologic/Psych: alert, normal mood/affect, oriented x 3 Skin: normal color, warm/dry, no rash Diagnostics Laboratory Results Results Past 24 Hours Test 12/14/16 13:13 12/14/16 13:20 Range/Units White Blood Count 9.84 4.8-10.8 K/uL Red Blood Count 5.76 4.7-6.1 M/uL Hemoglobin 15.7 14.0-18.0 g/dL Hematocrit 47.7 42-52 % Mean Corpuscular Volume 82.8 80-100 fL Mean Corpuscular Hemoglobin 27.3 25-34 pg Mean Corpuscular Hemoglobin Concent 32.9 32-36 g/dl Platelet Count 317 130-400 K/uL Mean Platelet Volume 10.5 7.4-10.4 fL Neutrophils (%) (Auto) 60.2 % Lymphocytes (%) (Auto) 29.3 % Monocytes (%) (Auto) 9.3 % Eosinophils (%) (Auto) 0.4 % Basophils (%) (Auto) 0.6 % Neutrophils # (Auto) 5.92 1.4-6.5 K/uL Lymphocytes # (Auto) 2.88 1.2-3.4 K/uL Monocytes # (Auto) 0.92 0.11-0.59 K/uL Eosinophils # (Auto) 0.04 0-0.5 K/uL Basophils # (Auto) 0.06 0-0.2 K/uL RDW Standard Deviation 44.9 36.4-46.3 fL RDW Coefficient of Variation 15.0 11.5-14.5 % Immature Granulocyte % (Auto) 0.2 % Immature Granulocyte # (Auto) 0.02 0.00-0.02 K/uL Sodium Level 134 136-145 mmol/L Potassium Level 2.8 3.5-5.1 mmol/L Chloride Level 92 98-107 mmol/L Carbon Dioxide Level 29 21-32 mmol/L Anion Gap 13.0 3-11 mmol/L Blood Urea Nitrogen 13 7-18 mg/dl Creatinine 1.45 0.60-1.40 mg/dl Est Creatinine Clear Calc Drug Dose 90.5 ml/min Estimated GFR () 72.8 Estimated GFR (Non- 62.8 BUN/Creatinine Ratio 8.7 10-20 Random Glucose 113 70-99 mg/dl Calcium Level 9.1 8.5-10.1 mg/dl Magnesium Level 1.5 1.8-2.4 mg/dl Total Bilirubin 4.7 0.2-1 mg/dl Direct Bilirubin 0.9 0-0.2 mg/dl Aspartate Amino Transf (AST/SGOT) 83 15-37 U/L Alanine Aminotransferase (ALT/SGPT) 75 12-78 U/L Alkaline Phosphatase 126 45-117 U/L Total Protein 8.0 6.4-8.2 gm/dl Albumin 4.0 3.4-5.0 gm/dl Lipase 133 73-393 U/L Urine Color ORANGE Urine Appearance CLOUDY CLEAR Urine pH 8.5 4.5-7.5 Urine Specific [place] 1.018 1.000-1.030 Urine Protein NEG NEG Urine Glucose (UA) NEG NEG Urine Ketones TRACE NEG Urine Occult Blood TRACE NEG Urine Nitrite POS NEG Urine Bilirubin 1+ NEG Urine Urobilinogen NEG NEG Urine Leukocyte Esterase LARGE NEG Urine WBC (Auto) >30 0-5 /hpf Urine RBC (Auto) 5-10 0-4 /hpf Urine Hyaline Casts (Auto) 1-5 0-5 /lpf Urine Epithelial Cells (Auto) 0-5 0-5 /lpf Urine Bacteria (Auto) NEG NEG Microbiology Results 12/14/16 Urine Culture, Received Pending Impression Assessment and Plan 31 year old female with 4 day history of vomiting. He has a lack of a WCC, and is afebrile. Initial ultrasound of kidneys and gallbladder has been within normal limits. He had a infectious UA and has been started on cipro. Ongoing differential includes gastroenteritis, pyelonephritis, cholecystitis and complicated cystitis. Abdominal pain renal and gallbladder US both wnl HIDA ordered morphine 2mg and 4mg Q2 for pain zofran prn for nausea patient started on IV PPI UTI UA was positive for infection started patient on IV cipro follow cultures HTN continue verapamil Asthma continue advair daily and albuterol prn PTSD/Bipolar/ADHD continue elvil Diet: NPO DVT: SCD's Code: FULL Level of Care Med/Surg Resuscitation Status FULL RESUSCITATION VTE Prophylaxis VTE Risk Assessment Done? Y/N: Yes Risk Level: Low Given or contraindicated: SCD's Assessment/Plan Resident Physician Supervision Note: I was present with Dr. Katz during the history and exam. I discussed the case with the resident and agree with the findings and plan as documented in the note. Any exceptions or clarifications are listed here. 31 y/o male h/o HTN, asthma, bipolar d/o, PTSD presents w/ 4 days N/V/abd pain without apparent trigger or association with food. Bilious, nonbloody vomiting which is copious and with significant eructation. Reports no etOH or substance use, nor changes in diet. On examination, significant TTP of the RUQ without Browning's sign which radiates locally to the flank. No suprapubic TTP. CTAB, S1/ S2 nl RRR no MCG. Abdominal complaint is concerning for gastritis v. cholecystitis upon clinical presentation w/ mild elevation in LFTs without WBC count. UA concerning for UTI. At present, will treat empirically for ascended UTI as well as gastritis w / IV PPI and ondansetron while evaluation for occult GB disease is underway. Pain management to be expanded as needed. Can broaden abx coverage as needed as well.
[2016-12-14 18:37] VITALS: BP 127/87; PULSE 126; TEMP 37; O2SAT 99
[2016-12-14] MEDS: MAGNESIUM SULFATE 1GM / D5W 1 GM in PREMIXED IN D5W 100 ML IV SCH ×2 (19:03→20:26)
[2016-12-14] MEDS: POTASSIUM CHLORIDE INJ 40 MEQ in SODIUM CHLORIDE 0.9% 1000ML 1,000 ML IV SCH (19:10)
[2016-12-14 19:25] VITALS: BP 127/87; PULSE 126; TEMP 37; O2SAT 99; Ht 185.4 cm; Wt 97.3 kg
[2016-12-14] MEDS: AMITRIPTYLINE HCL 25 MG TAB PO SCH (20:26)
[2016-12-14] MEDS: PANTOprazole INJ 40 MG in SYRINGE 0 ML IV SCH (20:26)
[2016-12-14] MEDS: FLUTICASONE/SALMETEROL 250/50 (ADVAIR) 14 PUFF/1 INHALER INH SCH (20:26)
[2016-12-14] MEDS: ONDANSETRON INJ 2 MG/ML 2 ML VIAL IV PRN (20:31)
[2016-12-14] MEDS ORDERED: PANTOprazole INJ 40 MG in DEXTROSE 5% 100ML 100 ML IV SCH (21:00)
[2016-12-14] MEDS: MoRPHine SULFATE 4 MG/ML 1 ML CARP\\VIAL IV PRN (23:58)
[2016-12-15 00:06] VITALS: BP 130/90; PULSE 105; TEMP 36.6; O2SAT 98
[2016-12-15] MEDS: MoRPHine SULFATE 4 MG/ML 1 ML CARP\\VIAL IV PRN ×7 (02:19→23:54)
[2016-12-15] MEDS: CIPROFLOXACIN / D5W 400 MG in PREMIXED IN D5W 200 ML IV SCH ×2 (03:20→15:37)
[2016-12-15] MEDS: POTASSIUM CHLORIDE INJ 40 MEQ in SODIUM CHLORIDE 0.9% 1000ML 1,000 ML IV SCH ×3 (03:21→23:48)
[2016-12-15 07:16] VITALS: BP 133/90; PULSE 98; TEMP 36.6; O2SAT 99
[2016-12-15] MEDS: FLUTICASONE/SALMETEROL 250/50 (ADVAIR) 14 PUFF/1 INHALER INH SCH ×2 (07:49→21:16)
[2016-12-15] MEDS ORDERED: NURSING VERBAL MED ORDER ONE (08:15)
[2016-12-15] MEDS: PANTOprazole INJ 40 MG in SYRINGE 0 ML IV SCH ×2 (08:36→21:16)
[2016-12-15] MEDS: VERAPAMIL HCL 120 MG TABCR PO SCH (09:07)
[2016-12-15 09:19] LABS: BUN/CREATININE RATIO 10.2 (10-20); CALCIUM 8.4 mg/dl (8.5-10.1); CREATININE 1.21 mg/dl (0.60-1.40); POTASSIUM 3.3 mmol/L (3.5-5.1)
[2016-12-15 10:47] LABS: BASO % 0.4 %; BASO ABS # 0.02 K/uL (0-0.2); COMPLETE YES; EOS % 1.4 %; HEMATOCRIT 36.8 % (42-52); IG% 0.2 %; LYMPH % 30.7 %; LYMPH ABS # 1.58 K/uL (1.2-3.4); MEAN CELL VOLUME 84.6 fL (80-100); MEAN CORPUSCULAR HEMOGLOBIN 26.9 pg (25-34); MEAN CORPUSCULAR HGB CONC 31.8 g/dl (32-36); MEAN PLATELET VOLUME 10.1 fL (7.4-10.4); MONO % 10.5 %; NEUT % 56.8 %; PLATELET COUNT 183 K/uL (130-400); RED BLOOD COUNT 4.35 M/uL (4.7-6.1); WHITE BLOOD COUNT 5.14 K/uL (4.8-10.8)
--- NOTE | 2016-12-15 12:54 | Family Medicine Progress Note ---
Progress Note Date of Service Dec 15, 2016.
--- NOTE | 2016-12-15 13:06 | Family Medicine Progress Note ---
Progress Note Date of Service Dec 15, 2016. Subjective Pt evaluation today including: conversation w/ patient, physical exam, chart review, lab review, conversation w/ clinical practice consultant, review of inpatient medication list Pain: moderate PO Intake: NPO Voiding: no voiding problems Patient with continued RUQ pain overnight. Did receive morphine and zofran overnight Has been feeling nauseated but is no longer vomiting HIDA scan results pending this afternoon On further history this morning patient does note that he has had red/orange urine Constitutional: No fever, No chills, No sweats Respiratory: No cough, No sputum, No wheezing, No shortness of breath Cardiovascular: No chest pain, No edema, No palpitations Abdomen: + pain, + nausea, No vomiting, No diarrhea, No constipation, No GI bleeding Male : + hematuria, No dysuria, No urinary frequency, No nocturia more than once/night Heme: + abnormal bleeding/bruising (urine) Skin: No rash, No itch Medications Current Inpatient Medications Medications (Trade) Dose Ordered Sig/Reena Route Start Time Stop Time Status Last Admin Dose Admin Al Hydrox/Mg Hydrox/Simethicone (Maalox Max Susp) 15 ml Q4H PRN PO 12/14/16 17:15 01/13/17 17:14 Magnesium Hydroxide (Milk Of Magnesia Susp) 30 ml Q6H PRN PO 12/14/16 17:15 01/13/17 17:14 Polyethylene (Miralax Powder Packet) 17 gm DAILY PRN PO 12/14/16 17:15 01/13/17 17:14 Ondansetron HCl (Zofran Inj) 4 mg Q6H PRN IV 12/14/16 17:15 01/13/17 17:14 12/14/16 20:31 4 MG Ciprofloxacin/ Dextrose 400 mg/ Prmx 200 ml @ 100 mls/hr Q12@0400,1600 IV 12/15/16 04:00 12/24/16 15:59 12/15/16 03:20 100 MLS/HR Potassium Chloride 40 meq/ Sodium Chloride 1,020 ml @ 125 mls/hr Q8H10M IV 12/14/16 18:48 01/13/17 18:47 12/15/16 03:21 125 MLS/HR Morphine Sulfate (MoRPHine SULFATE INJ) 4 mg Q2HWA PRN IV 12/14/16 17:15 12/28/16 17:14 12/15/16 05:25 4 MG Morphine Sulfate (MoRPHine SULFATE INJ) 2 mg Q2HWA PRN IV 12/14/16 17:15 12/28/16 17:14 12/14/16 21:48 2 MG Albuterol (Ventolin Hfa Inhaler) PRN Q6 PRN INH 12/14/16 17:15 01/13/17 17:14 Albuterol Sulfate (Ventolin 0.083% 2.5MG/3ML Neb) 2.5 mg Q4H PRN INH 12/14/16 17:15 01/13/17 17:14 Amitriptyline HCl (Elavil Tab) 25 mg HS PO 12/14/16 21:00 01/13/17 20:59 12/14/16 20:26 25 MG Salmeterol Xinafoate/ Fluticasone (Advair Diskus 250/50 Inh) 2 puff BID INH 12/14/16 20:00 01/13/17 20:59 12/15/16 07:49 2 PUFF Pantoprazole Sodium 40 mg/ Syringe 10 ml @ 5 mls/min BID@, IV 12/14/16 21:00 01/13/17 20:59 12/15/16 08:36 5 MLS/MIN Verapamil HCl (Calan-Sr Tab) 120 mg DAILY PO 12/15/16 08:30 01/14/17 08:29 12/15/16 09:07 120 MG Objective Vital Signs Date Time Temp Pulse Resp B/P (MAP) Pulse Ox O2 Delivery O2 Flow Rate FiO2 12/15/16 08:30 Room Air 12/15/16 07:16 36.6 98 20 133/90 (104) 99 Room Air 12/15/16 00:06 36.6 105 20 130/90 (103) 98 Room Air 12/15/16 00:00 Room Air 12/14/16 19:25 37.0 126 20 127/87 99 Room Air 12/14/16 18:37 37.0 126 20 127/87 (100) 99 Room Air 12/14/16 18:21 101 19 129/94 95 Room Air 12/14/16 17:00 107 18 127/97 96 Room Air 12/14/16 15:41 118 20 131/108 95 Room Air 12/14/16 14:35 120 18 132/86 92 Room Air 12/14/16 13:36 125 Physical Exam General Appearance: WD/WN, + mild distress Respiratory/Chest: chest non-tender, lungs clear, no respiratory distress, no accessory muscle use Cardiovascular: regular rate, rhythm, no edema, no murmur Abdomen: normal bowel sounds, + tenderness (RUQ), + pertinent finding (no CVA tenderness noted) Extremities: normal range of motion, non-tender, no calf tenderness, normal capillary refill Neurologic/Psychiatric: alert, normal mood/affect, oriented x 3 Skin: normal color, warm/dry, no rash Laboratory Results Results Past 24 Hours Test 12/14/16 13:13 12/14/16 13:20 12/15/16 08:20 Range/Units White Blood Count 9.84 5.14 4.8-10.8 K/uL Red Blood Count 5.76 4.35 4.7-6.1 M/uL Hemoglobin 15.7 11.7 14.0-18.0 g/dL Hematocrit 47.7 36.8 42-52 % Mean Corpuscular Volume 82.8 84.6 80-100 fL Mean Corpuscular Hemoglobin 27.3 26.9 25-34 pg Mean Corpuscular Hemoglobin Concent 32.9 31.8 32-36 g/dl Platelet Count 317 183 130-400 K/uL Mean Platelet Volume 10.5 10.1 7.4-10.4 fL Neutrophils (%) (Auto) 60.2 56.8 % Lymphocytes (%) (Auto) 29.3 30.7 % Monocytes (%) (Auto) 9.3 10.5 % Eosinophils (%) (Auto) 0.4 1.4 % Basophils (%) (Auto) 0.6 0.4 % Neutrophils # (Auto) 5.92 2.92 1.4-6.5 K/uL Lymphocytes # (Auto) 2.88 1.58 1.2-3.4 K/uL Monocytes # (Auto) 0.92 0.54 0.11-0.59 K/uL Eosinophils # (Auto) 0.04 0.07 0-0.5 K/uL Basophils # (Auto) 0.06 0.02 0-0.2 K/uL RDW Standard Deviation 44.9 46.2 36.4-46.3 fL RDW Coefficient of Variation 15.0 15.0 11.5-14.5 % Immature Granulocyte % (Auto) 0.2 0.2 % Immature Granulocyte # (Auto) 0.02 0.01 0.00-0.02 K/uL Sodium Level 134 137 136-145 mmol/L Potassium Level 2.8 3.3 3.5-5.1 mmol/L Chloride Level 92 100 98-107 mmol/L Carbon Dioxide Level 29 27 21-32 mmol/L Anion Gap 13.0 10.0 3-11 mmol/L Blood Urea Nitrogen 13 12 7-18 mg/dl Creatinine 1.45 1.21 0.60-1.40 mg/dl Est Creatinine Clear Calc Drug Dose 90.5 106.7 ml/min Estimated GFR () 72.8 90.6 Estimated GFR (Non- 62.8 78.2 BUN/Creatinine Ratio 8.7 10.2 10-20 Random Glucose 113 90 70-99 mg/dl Calcium Level 9.1 8.4 8.5-10.1 mg/dl Magnesium Level 1.5 1.8-2.4 mg/dl Total Bilirubin 4.7 4.4 0.2-1 mg/dl Direct Bilirubin 0.9 0-0.2 mg/dl Aspartate Amino Transf (AST/SGOT) 83 61 15-37 U/L Alanine Aminotransferase (ALT/SGPT) 75 50 12-78 U/L Alkaline Phosphatase 126 96 45-117 U/L Total Protein 8.0 6.4 6.4-8.2 gm/dl Albumin 4.0 3.2 3.4-5.0 gm/dl Lipase 133 73-393 U/L Urine Color ORANGE Urine Appearance CLOUDY CLEAR Urine pH 8.5 4.5-7.5 Urine Specific [place] 1.018 1.000-1.030 Urine Protein NEG NEG Urine Glucose (UA) NEG NEG Urine Ketones TRACE NEG Urine Occult Blood TRACE NEG Urine Nitrite POS NEG Urine Bilirubin 1+ NEG Urine Urobilinogen NEG NEG Urine Leukocyte Esterase LARGE NEG Urine WBC (Auto) >30 0-5 /hpf Urine RBC (Auto) 5-10 0-4 /hpf Urine Hyaline Casts (Auto) 1-5 0-5 /lpf Urine Epithelial Cells (Auto) 0-5 0-5 /lpf Urine Bacteria (Auto) NEG NEG Globulin 3.2 2.5-4.0 gm/dl Albumin/Globulin Ratio 1.0 0.9-2 Procalcitonin 0.34 0-0.5 ng/ml Microbiology Results 12/14/16 Urine Culture, Received Pending Assessment and Plan Assessment: 31 year old female with 4 day history of vomiting. He has a lack of a WCC, and is afebrile. Initial ultrasound of kidneys and gallbladder has been within normal limits. He had a infectious UA and has been started on cipro. Ongoing differential includes gastroenteritis, pyelonephritis, cholecystitis and complicated cystitis. Patient has continued to have RUQ abdominal pain overnight. We ordered a HIDA scan and are awaiting results. He did have red/orange urine this morning so this could indicate that he may have a kidney stone but kidney US did not show anything and his pain is more indicative of gallbladder pathology than renal pathology. Plan: Abdominal pain renal and gallbladder US both wnl HIDA ordered and results pending morphine 2mg and 4mg Q2 for pain zofran prn for nausea patient started on IV PPI If HIDA normal will consider kidney stone CT scan UTI UA was positive for infection started patient on IV cipro follow cultures HTN continue verapamil Asthma continue advair daily and albuterol prn PTSD/Bipolar/ADHD continue elvil Diet: NPO DVT: SCD's Code: FULL Assessment/Plan Resident Physician Supervision Note: I was present with Dr. Katz during the history and exam. I discussed the case with the resident and agree with the findings and plan as documented in the note. Any exceptions or clarifications are listed here. 31 y/o male h/o HTN, asthma, bipolar d/o, PTSD presents w/ 4 days N/V/abd pain without apparent trigger or association with food. Pt reports mild improvement in RUQ abdominal pain and decreased nausea, no new episodes of vomiting. Significant TTP of the RUQ without Browning's sign which radiates locally to the flank with considerable apprehension and guarding. No suprapubic TTP. CTAB, S1/ S2 nl RRR no MCG. Urine at bedside is ORANGE. Regarding the abdominal pain, nausea and vomiting, HIDA showed no overt abnormalities but a sphincter delay would warrant further investigation by either MRCP or CT, which would be done with renal protocol to evaluate for occult nephrolithiasis in the setting of flank pain and abn UA. Cultures pending. Pain controlled with present regimen and will continue. Still on PPI IV as well
--- NOTE | 2016-12-15 13:33 | DIAGNOSTIC IMAGING REPORT ---
HEPATOBILIARY HIDA IMAGING HISTORY: Pain. Nausea. RUQ pain with nausea and vomiting COMPARISON: None. TECHNIQUE: Immediately following the intravenous administration of 5.2 mCi Tc-99m Choletec, dynamic anterior abdominal imaging was performed. FINDINGS: Uniform hepatic tracer accumulation is shown. Prompt intrahepatic biliary excretion is seen. The gallbladder, common bile duct, and small bowel are all visualized by 55 minutes. IMPRESSION: No evidence for cystic duct obstruction. Slight delay in small bowel activity at 55 minutes. This may indicate a component of distal common bile duct sphincter dysfunction The above report was generated using voice recognition software. It may contain grammatical, syntax or spelling errors. Electronically signed by: Derik Collier M.D. 12/15/2016 1:32 PM Dictated Date/Time: 12/15/2016 1:30 PM
[2016-12-15 15:52] VITALS: BP 145/87; PULSE 96; TEMP 36.8; O2SAT 98
[2016-12-15] MEDS: ONDANSETRON INJ 2 MG/ML 2 ML VIAL IV PRN ×2 (16:48→23:53)
--- NOTE | 2016-12-15 18:32 | DIAGNOSTIC IMAGING REPORT ---
MRCP CLINICAL HISTORY: Right upper quadrant abdominal pain. COMPARISON STUDY: Abdominal ultrasound dated 12/14/2016. Nuclear hepatobiliary scan dated 12/15/2016. Abdominal CT dated 05/09/2016. TECHNIQUE: Abdominal MRCP is performed utilizing various T2-weighted sequences in the axial and coronal planes. IV contrast was not administered for this examination. 3-D reformats are created and assessed. FINDINGS: The gallbladder is normal in appearance. No gallstones are identified. No gallbladder wall thickening is seen. There is no intra or extrahepatic biliary ductal dilatation. The common bile duct measures up to 6 mm. No filling defects are identified to suggest choledocholithiasis. The pancreatic duct is normal in caliber. The liver is enlarged measuring 21.7 cm in length. Steatosis was shown by ultrasound. A 1.3 cm T2 hyperintense focus in the right lobe seen on axial image #10 likely represents a hemangioma when correlated with the prior CT scan. The spleen is enlarged, measuring 14.1 cm in length. The pancreas, adrenal glands, and kidneys are normal as visualized. The abdominal aorta is normal in caliber. There is no abdominal ascites. No evidence of bowel obstruction is seen. No pleural effusion is identified. IMPRESSION: 1. The gallbladder is normal in appearance. There are no gallstones identified, no intra or extrahepatic biliary ductal dilatation is seen, and there is no evidence of choledocholithiasis. 2. The liver is enlarged and steatotic. 3. Mild splenomegaly. Electronically signed by: Compa Ortez M.D. 12/15/2016 6:31 PM Dictated Date/Time: 12/15/2016 6:24 PM
[2016-12-15] MEDS: AMITRIPTYLINE HCL 25 MG TAB PO SCH (21:16)
[2016-12-15 23:14] VITALS: BP 129/86; PULSE 90; TEMP 37; O2SAT 98
[2016-12-16] MEDS ORDERED: NURSING DECISION MEDICATION ORDER SCH (01:15)
[2016-12-16] MEDS: MoRPHine SULFATE 4 MG/ML 1 ML CARP\\VIAL IV PRN ×6 (04:07→21:26)
[2016-12-16] MEDS: CIPROFLOXACIN / D5W 400 MG in PREMIXED IN D5W 200 ML IV SCH ×2 (04:07→16:02)
[2016-12-16 06:08] LABS: HEMATOCRIT 32.6 % (42-52); MEAN CELL VOLUME 86.2 fL (80-100); MEAN CORPUSCULAR HEMOGLOBIN 27.2 pg (25-34); MEAN CORPUSCULAR HGB CONC 31.6 g/dl (32-36); MEAN PLATELET VOLUME 9.4 fL (7.4-10.4); PLATELET COUNT 156 K/uL (130-400); RED BLOOD COUNT 3.78 M/uL (4.7-6.1); WHITE BLOOD COUNT 4.67 K/uL (4.8-10.8)
[2016-12-16 06:48] LABS: BUN/CREATININE RATIO 8.6 (10-20); CALCIUM 7.9 mg/dl (8.5-10.1); CREATININE 1.15 mg/dl (0.60-1.40); POTASSIUM 3.8 mmol/L (3.5-5.1)
[2016-12-16] MEDS: PANTOprazole INJ 40 MG in SYRINGE 0 ML IV SCH ×2 (07:24→20:43)
[2016-12-16] MEDS: FLUTICASONE/SALMETEROL 250/50 (ADVAIR) 14 PUFF/1 INHALER INH SCH ×2 (07:24→20:43)
[2016-12-16] MEDS: VERAPAMIL HCL 120 MG TABCR PO SCH (07:24)
[2016-12-16 08:00] VITALS: BP 147/104; PULSE 93; TEMP 36.7; O2SAT 98
[2016-12-16 13:31] VITALS: BP 138/89
--- NOTE | 2016-12-16 14:29 | Family Medicine Progress Note ---
Progress Note Date of Service Dec 16, 2016. Subjective Pt evaluation today including: conversation w/ patient, conversation w/ family , physical exam, chart review, conversation w/ healthcare risk control consultant, review of inpatient medication list Pain: 9/10 PO Intake: NPO Patient continues to have 9/10 pain at rest Urine continues to remain orange/red Tried eating yesterday but vomited the food up and then vomited bile Patient was made NPO after midnight Constitutional: No fever, No chills, No sweats Respiratory: No cough, No sputum, No wheezing, No shortness of breath Cardiovascular: No chest pain, No orthopnea, No edema, No palpitations Abdomen: + pain, + nausea, + vomiting, No diarrhea, No constipation, No GI bleeding Male : + hematuria, No dysuria, No urinary frequency Medications Current Inpatient Medications Medications (Trade) Dose Ordered Sig/Reena Route Start Time Stop Time Status Last Admin Dose Admin Al Hydrox/Mg Hydrox/Simethicone (Maalox Max Susp) 15 ml Q4H PRN PO 12/14/16 17:15 01/13/17 17:14 Magnesium Hydroxide (Milk Of Magnesia Susp) 30 ml Q6H PRN PO 12/14/16 17:15 01/13/17 17:14 Polyethylene (Miralax Powder Packet) 17 gm DAILY PRN PO 12/14/16 17:15 01/13/17 17:14 Ondansetron HCl (Zofran Inj) 4 mg Q6H PRN IV 12/14/16 17:15 01/13/17 17:14 12/15/16 23:53 4 MG Ciprofloxacin/ Dextrose 400 mg/ Prmx 200 ml @ 100 mls/hr Q12@0400,1600 IV 12/15/16 04:00 12/24/16 15:59 12/16/16 04:07 100 MLS/HR Morphine Sulfate (MoRPHine SULFATE INJ) 4 mg Q2HWA PRN IV 12/14/16 17:15 12/28/16 17:14 12/16/16 13:28 4 MG Morphine Sulfate (MoRPHine SULFATE INJ) 2 mg Q2HWA PRN IV 12/14/16 17:15 12/28/16 17:14 12/14/16 21:48 2 MG Albuterol (Ventolin Hfa Inhaler) PRN Q6 PRN INH 12/14/16 17:15 01/13/17 17:14 Albuterol Sulfate (Ventolin 0.083% 2.5MG/3ML Neb) 2.5 mg Q4H PRN INH 12/14/16 17:15 01/13/17 17:14 Amitriptyline HCl (Elavil Tab) 25 mg HS PO 12/14/16 21:00 01/13/17 20:59 12/15/16 21:16 25 MG Salmeterol Xinafoate/ Fluticasone (Advair Diskus 250/50 Inh) 2 puff BID INH 12/14/16 20:00 01/13/17 20:59 12/16/16 07:24 2 PUFF Pantoprazole Sodium 40 mg/ Syringe 10 ml @ 5 mls/min BID@, IV 12/14/16 21:00 01/13/17 20:59 12/16/16 07:24 5 MLS/MIN Verapamil HCl (Calan-Sr Tab) 120 mg DAILY PO 12/15/16 08:30 01/14/17 08:29 12/16/16 07:24 120 MG Objective Vital Signs Date Time Temp Pulse Resp B/P (MAP) Pulse Ox O2 Delivery O2 Flow Rate FiO2 12/16/16 13:31 138/89 (105) 12/16/16 08:00 36.7 93 20 147/104 (118) 98 12/16/16 08:00 Room Air 12/16/16 00:15 Room Air 12/15/16 23:14 37.0 90 20 129/86 (100) 98 Room Air 12/15/16 19:30 Room Air 12/15/16 17:20 Room Air 12/15/16 15:52 36.8 96 18 145/87 (106) 98 Room Air Physical Exam Notes: General Appearance: WD/WN, + mild distress Respiratory/Chest: chest non-tender, lungs clear, no respiratory distress, no accessory muscle use Cardiovascular: regular rate, rhythm, no edema, no murmur Abdomen: normal bowel sounds, + tenderness (RUQ), + pertinent finding (no CVA tenderness noted) Extremities: normal range of motion, non-tender, no calf tenderness, normal capillary refill Neurologic/Psychiatric: alert, normal mood/affect, oriented x 3 Skin: normal color, warm/dry, no rash Laboratory Results Results Past 24 Hours Test 12/16/16 05:53 Range/Units White Blood Count 4.67 4.8-10.8 K/uL Red Blood Count 3.78 4.7-6.1 M/uL Hemoglobin 10.3 14.0-18.0 g/dL Hematocrit 32.6 42-52 % Mean Corpuscular Volume 86.2 80-100 fL Mean Corpuscular Hemoglobin 27.2 25-34 pg Mean Corpuscular Hemoglobin Concent 31.6 32-36 g/dl RDW Standard Deviation 46.9 36.4-46.3 fL RDW Coefficient of Variation 15.1 11.5-14.5 % Platelet Count 156 130-400 K/uL Mean Platelet Volume 9.4 7.4-10.4 fL Sodium Level 137 136-145 mmol/L Potassium Level 3.8 3.5-5.1 mmol/L Chloride Level 104 98-107 mmol/L Carbon Dioxide Level 25 21-32 mmol/L Anion Gap 8.0 3-11 mmol/L Blood Urea Nitrogen 10 7-18 mg/dl Creatinine 1.15 0.60-1.40 mg/dl Est Creatinine Clear Calc Drug Dose 112.2 ml/min Estimated GFR () 96.4 Estimated GFR (Non- 83.2 BUN/Creatinine Ratio 8.6 10-20 Random Glucose 84 70-99 mg/dl Calcium Level 7.9 8.5-10.1 mg/dl Total Bilirubin 3.5 0.2-1 mg/dl Direct Bilirubin 1.8 0-0.2 mg/dl Aspartate Amino Transf (AST/SGOT) 66 15-37 U/L Alanine Aminotransferase (ALT/SGPT) 46 12-78 U/L Alkaline Phosphatase 91 45-117 U/L Total Protein 6.0 6.4-8.2 gm/dl Albumin 3.0 3.4-5.0 gm/dl Hepatitis B Surface Antigen NEG NEG Hepatitis C Antibody NEG NEG Assessment and Plan Assessment: 31 year old female with 4 day history of vomiting. He has a lack of a WCC, and is afebrile. Initial ultrasound of kidneys and gallbladder has been within normal limits. He had a infectious UA and has been started on cipro. 12/15 : Patient has continued to have RUQ abdominal pain overnight. We ordered a HIDA scan and are awaiting results. He did have red/orange urine this morning so this could indicate that he may have a kidney stone but kidney US did not show anything and his pain is more indicative of gallbladder pathology than renal pathology. 12/16: Patient with continued pain overnight, was unable to eat last night. Had a HIDA scan yesterday which did show slowing at the sphincter of at the bile duct outlet, therefore MRCP was ordered yesterday and that returned as unremarkable. Patient had a decrease in total bili to 3.5 and an increase in his direct bili to 1.8. We are unsure as to what is causing his continued nausea and abdominal pain. We have consulted GI for further workup and possible upper endoscopy Plan: Abdominal pain renal and gallbladder US both wnl HIDA ordered and showed delayed emptying at sphincter tbili slightly decreased to 3.5 morphine 2mg and 4mg Q2 for pain zofran prn for nausea patient on IV PPI GI consult made today UTI UA was positive for infection started patient on IV cipro cultures have shown staph HTN continue verapamil Asthma continue advair daily and albuterol prn PTSD/Bipolar/ADHD continue elvil Diet: NPO DVT: SCD's Code: FULL Continued [facility] stay due to: multiple IV medications needed Assessment/Plan Resident Physician Supervision Note: I was present with Dr. Katz during the history and exam. I discussed the case with the resident and agree with the findings and plan as documented in the note. Any exceptions or clarifications are listed here. 31 y/o male h/o HTN, asthma, bipolar d/o, PTSD presents w/ 4 days N/V/abd pain without apparent trigger or association with food. Unchanged right upper quadrant focal pain w/ single episode of N/V overnight after dinner without apparent impact in pain. Still with TTP of the RUQ without Browning's sign which radiates locally to the flank with considerable apprehension and guarding. No suprapubic TTP. CTAB, S1/S2 nl RRR no MCG. Urine at bedside is ORANGE. Regarding the abdominal pain, nausea and vomiting, US, HIDA, MRCP. Without significant improvement w/ PPI IV, tolerating IV zofran, defers carafate today. Urine culture +ve for coag neg staph. Pain controlled with present regimen and will continue. GI consulted today for further evaluation of abd pain n/v.
[2016-12-16 15:30] VITALS: BP_SYST 156; BP_SYST 160; BP_DIAS 100; BP_DIAS 96; PULSE 104; TEMP 37; O2SAT 98
[2016-12-16 16:00] VITALS: O2SAT 98
--- NOTE | 2016-12-16 16:12 | Gastrointestinal Consultation ---
Gastrointestinal Consultation Date of Consultation: Dec 16, 2016 Attending Physician: DR Marky Sam Consulting Physician: Dr Kyle Baer Reason for Consultation: RUQ pain History of Present Illness Patient is a 31 year old male with CC of RUQ pain. HPI: Pt with problems with n/ v few years ago with unclear etiology but EGD in [place] done then showed yeast in esophagus per patient report. NO further problems until 8 days ago noted to have n/v and RUQ pain. RUQ no improvement except with pain meds. Tried to eat solid food last night and vomited that back up. On 09/07/16 had LFTS TB 1.1 and alk phos 62 normal but AST 95 and ALT 96 elevated. on admit TB 4.7 with some improvement to 3.5, AST 83 improved to 66 and alk phos 126 improved to 91. lipase normal. UA >30 WBCs. Renal u/s fatty liver. KUB normal. RUQ u/s fatty liver. HIDA scan no cystic duct obstruction but some delayed SB image. MRCP hepatomegaly, splenomegaly, fatty liver, liver hemangiioma. Pt denies any ETOH use currently and 5 years ago only occosional use. He is unaware of any liver problems in the past or fhx of liver problems. no dysphagia, no change in bowels, no fever, no gerd, has lost weight. Past Medical/Surgical History Medical Problems: (1) Anemia Status: Acute (2) Back pain Status: Acute (3) Bilateral flank pain Status: Acute (4) Contusion of foot Status: Acute (5) Elevated bilirubin Status: Acute (6) Flank pain Status: Acute (7) Headache Status: Acute (8) Hematuria Status: Acute (9) Hematuria Status: Acute (10) Hypertension Status: Acute (11) Hypokalemia Status: Acute (12) Hypokalemia Status: Acute (13) Hypomagnesemia Status: Acute (14) UTI (urinary tract infection) Status: Acute (15) Vomiting Status: Acute Family History Asthma Cancer Diabetes mellitus FH: heart disease FHx: lung disease Hypertension Kidney disease Kidney stones Stroke Social History Smoking Status: Never Smoker Drug Use: none Marital Status: single Housing Status: lives with family Occupation Status: unemployed Allergies Coded Allergies: Penicillins (Verified Allergy, Intermediate, ITCHY BLOTCHES, 12/14/16) Naproxen (Unverified Allergy, Unknown, ITCHY, 12/14/16) Red Dye (Verified Allergy, Unknown, HIVES, 12/14/16) Current Medications Home Meds and Scripts Medications Dose Route/Sig Max Daily Dose Days Date Category Elavil (Amitriptyline Hcl) 25 Mg Tab 25 Mg PO HS 12/14/16 Reported Verelan Pm (Verapamil HCl) 100 Mg Ercap 100 Mg PO QAM 12/14/16 Reported Advair Diskus 250/50 60 Dose (Fluticasone Prop/Salmeterol) 1 Ea Aerp 2 Puff INH BID 08/14/16 Reported Proventil 0.083% 2.5MG/3ML (Albuterol Sulf) 2.5 Mg/3 Ml Nebu 2.5 Mg INH PRN 03/18/16 Reported Ventolin Hfa (Albuterol) 200 Puffs/39200 Mcg Aers 2-4 Puffs INH BID 03/18/16 Reported Review of Systems see HPI .Otherwise 10 ROS negative. Physical Exam Date Time Temp Pulse Resp B/P (MAP) Pulse Ox O2 Delivery O2 Flow Rate FiO2 12/16/16 13:31 138/89 (105) 12/16/16 08:00 36.7 93 20 147/104 (118) 98 12/16/16 08:00 Room Air 12/16/16 00:15 Room Air 12/15/16 23:14 37.0 90 20 129/86 (100) 98 Room Air 12/15/16 19:30 Room Air 12/15/16 17:20 Room Air General Appearance: WD/WN, no apparent distress ENT: hearing grossly normal, pharynx normal Neck: supple, trachea midline Respiratory/Chest: lungs clear, normal breath sounds Cardiovascular: no edema, no murmur Abdomen: normal bowel sounds, soft, no organomegaly, no pulsatile mass, + guarding (in RUQ but no rebound) Extremities: non-tender, normal inspection Neurologic/Psych: pipe liner II-XII nml as tested, normal mood/affect, oriented x 3 Skin: normal color, warm/dry Laboratory Results Last 24 Hours Test 12/16/16 05:53 White Blood Count 4.67 K/uL Red Blood Count 3.78 M/uL Hemoglobin 10.3 g/dL Hematocrit 32.6 % Mean Corpuscular Volume 86.2 fL Mean Corpuscular Hemoglobin 27.2 pg Mean Corpuscular Hemoglobin Concent 31.6 g/dl RDW Standard Deviation 46.9 fL RDW Coefficient of Variation 15.1 % Platelet Count 156 K/uL Mean Platelet Volume 9.4 fL Sodium Level 137 mmol/L Potassium Level 3.8 mmol/L Chloride Level 104 mmol/L Carbon Dioxide Level 25 mmol/L Anion Gap 8.0 mmol/L Blood Urea Nitrogen 10 mg/dl Creatinine 1.15 mg/dl Est Creatinine Clear Calc Drug Dose 112.2 ml/min Estimated GFR () 96.4 Estimated GFR (Non- 83.2 BUN/Creatinine Ratio 8.6 Random Glucose 84 mg/dl Calcium Level 7.9 mg/dl Total Bilirubin 3.5 mg/dl Direct Bilirubin 1.8 mg/dl Aspartate Amino Transf (AST/SGOT) 66 U/L Alanine Aminotransferase (ALT/SGPT) 46 U/L Alkaline Phosphatase 91 U/L Total Protein 6.0 gm/dl Albumin 3.0 gm/dl Hepatitis B Surface Antigen NEG Hepatitis C Antibody NEG Impression RUQ pain--GB imaging negative so far. Did not do EF on HIDA to look for chronic cholecystitis but otherwise all normal. R/O PUD. Continue PPI. If no significant improvement over the weekend then do EGD monday. Proc and risks explained to patient which include but not limited to med reaction, bleeding, perforation, aspiration. elev LFTS--no obstruction. Acute hep panel so far ok but need rest, Check ARNOLDO ( noted to be elevated to 1:160 on 03/25), ASMA, AMA, EBV, CMV. anemia--no of black or bloody stools, minor hemetemesis--check EGD, also check fe sat, b12, folate and ferritin fatty liver denies ETOH use, can be from increased weight of hyperlipidemia-- check lipid panel abnormal HIDA--delay in flow to SB rather nonspecific and MRCP did not show any obstruction n/v PPI and EGD as above.
[2016-12-16] MEDS: SODIUM CHLORIDE 0.9% 1000ML 1,000 ML IV SCH (18:32)
[2016-12-16] MEDS: AMITRIPTYLINE HCL 25 MG TAB PO SCH (20:43)
[2016-12-16] MEDS: ONDANSETRON INJ 2 MG/ML 2 ML VIAL IV PRN (20:47)
[2016-12-16 20:49] VITALS: BP 144/92; O2SAT 95
[2016-12-17 00:01] VITALS: O2SAT 96
[2016-12-17 00:16] VITALS: BP 159/99; PULSE 106; TEMP 37.2; O2SAT 96
[2016-12-17] MEDS: MoRPHine SULFATE 4 MG/ML 1 ML CARP\\VIAL IV PRN ×6 (00:37→21:31)
[2016-12-17] MEDS: CIPROFLOXACIN / D5W 400 MG in PREMIXED IN D5W 200 ML IV SCH ×2 (03:50→15:54)
[2016-12-17] MEDS: SODIUM CHLORIDE 0.9% 1000ML 1,000 ML IV SCH ×3 (05:26→23:16)
[2016-12-17 05:33] LABS: BASO % 0.5 %; BASO ABS # 0.02 K/uL (0-0.2); COMPLETE YES; EOS % 1.9 %; HEMATOCRIT 32.1 % (42-52); IG% 0.7 %; LYMPH ABS # 1.22 K/uL (1.2-3.4); MEAN CELL VOLUME 85.4 fL (80-100); MEAN CORPUSCULAR HEMOGLOBIN 27.1 pg (25-34); MEAN CORPUSCULAR HGB CONC 31.8 g/dl (32-36); MEAN PLATELET VOLUME 9.7 fL (7.4-10.4); MONO % 9.3 %; NEUT % 58.6 %; PLATELET COUNT 155 K/uL (130-400); RED BLOOD COUNT 3.76 M/uL (4.7-6.1)
[2016-12-17 05:44] LABS: PARTIAL THROMBOPLASTIN RATIO 0.9; PROTHROMBIN TIME (PATIENT) 10.9 SECONDS (9.0-12.0)
[2016-12-17 05:58] LABS: BUN/CREATININE RATIO 8.2 (10-20); CALCIUM 8.3 mg/dl (8.5-10.1); CREATININE 0.95 mg/dl (0.60-1.40); POTASSIUM 3.7 mmol/L (3.5-5.1)
[2016-12-17 06:04] LABS: FERRITIN 301.7 ng/ml (8.0-388.0)
[2016-12-17 08:39] VITALS: BP 159/109; PULSE 99; TEMP 36.4; O2SAT 99
[2016-12-17] MEDS: FLUTICASONE/SALMETEROL 250/50 (ADVAIR) 14 PUFF/1 INHALER INH SCH ×2 (08:58→20:30)
[2016-12-17] MEDS: VERAPAMIL HCL 120 MG TABCR PO SCH (08:58)
[2016-12-17] MEDS: PANTOprazole INJ 40 MG in SYRINGE 0 ML IV SCH ×2 (08:58→20:32)
[2016-12-17] MEDS ORDERED: FAMOTIDINE IV INJ 20 MG in DEXTROSE 5% 100ML 100 ML IV SCH (10:30)
[2016-12-17] MEDS ORDERED: LOSARTAN POTASSIUM 25 MG TAB PO ONE (10:30)
[2016-12-17] MEDS ORDERED: HYDROCHLOROTHIAZIDE 25 MG TAB PO STA (10:36)
--- NOTE | 2016-12-17 10:46 | Family Medicine Progress Note ---
Progress Note Date of Service Dec 17, 2016. Subjective Pt evaluation today including: conversation w/ patient, physical exam, chart review, lab review The patient was seen and examined at bedside. Pt continues to have RUQ pain. He is getting regular doses of 4mg IV Morphine. In the AM he was NPO and was very hungry. Bilirubin continues to trend down. CT Abdomen and Pelvis was suspicious for bronchitis. Pt had 4 BM yesterday that were small and hard. Plan of care was described to the patient and all questions were answered. Constitutional: No fever, No chills, No sweats, No weight loss ENT: No hearing loss Respiratory: No cough, No sputum, No wheezing, No shortness of breath Abdomen: No pain, No nausea, No vomiting, No diarrhea Musculoskeletal: No joint pain Male : No dysuria Objective Physical Exam General Appearance: WD/WN, no apparent distress Respiratory/Chest: chest non-tender, lungs clear, normal breath sounds, no respiratory distress, no accessory muscle use Cardiovascular: regular rate, rhythm, no edema, no JVD, no murmur Abdomen: normal bowel sounds, soft, no pulsatile mass, + pertinent finding ( positive richard's sign - was able to reproduce the pt's pain on epigastric deep palpation.) Extremities: normal range of motion, non-tender, normal inspection, no pedal edema, no calf tenderness 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 Vague groundglass nodularity in the superior segments of the lower lobes raises concern for infectious bronchiolitis. The report will be called/faxed according to standard departmental protocol. Electronically signed by: Mo Parry M.D. 12/17/2016 12:14 PM Dictated Date/Time: 12/17/2016 12:13 PM ORIGINAL REPORT ANGIO ABD/PELVIS WITH CONTRAST CLINICAL HISTORY: 31 years-old Male presenting with abdominal pain, nausea, vomiting. TECHNIQUE: Multidetector CT angiography of the abdomen and pelvis was performed after the administration of intravenous contrast. 3-D volumetric and/or maximum intensity projection (MIP) images were subsequently reconstructed for review. IV contrast: 94 mL of Optiray 320. A dose lowering technique was used consistent with the principles of ALARA (as low as reasonably achievable). Stenosis measurements were based on NASCET-like criteria. COMPARISON: 05/09/2016. CT DOSE (mGy.cm): The estimated cumulative dose is 1096.14 mGy.cm. FINDINGS: [facility] topogram: Unremarkable. Lung bases: Minimal groundglass opacity noted in the superior segments of the bilateral lower lobes with associated bronchial wall thickening. Mosaic attenuation also noted which could suggest small airways disease. Normal heart size. No pericardial or pleural effusion. Liver: Normal morphology. Severe hepatic steatosis, which has progressed since the prior exam. Hyperdense lesion in the right hepatic lobe measuring 12 mm, indeterminate but possibly hemangioma. Patent hepatic vasculature. Conventional hepatic arterial anatomy. Biliary: No intrahepatic or extrahepatic biliary ductal dilatation. Mild distention of the otherwise normal-appearing gallbladder, likely physiologic. Pancreas: Mild parenchymal atrophy. Relative hyperdensity in the region of the pancreatic head may relate to relative sparing of atrophic change within a portion of the pancreas (series 2 image 172). Spleen: Normal. Adrenal glands: Normal. Kidneys and ureters: Normal. No hydronephrosis. Bladder: Mild circumferential bladder wall thickening. Pelvic organs: Prostate and seminal vesicles normal. Bowel: Post surgical changes of prior appendectomy. No bowel obstruction. Intramural fat deposition in the distal small bowel, nonspecific but can be seen in the setting of chronic inflammation, extended exposure steroids, or obesity. Peritoneal cavity: No free fluid or intraperitoneal gas. Lymph nodes: Multiple subcentimeter prominent retroperitoneal and upper abdominal lymph nodes. The largest lymph node is located in the region of the celiac axis and measures 9 mm in the short axis (series 2 image 121). Vasculature: Aorta and major branch vessels patent. No evidence of acute aortic injury or vessel occlusion. Due to the phase of contrast the veins cannot be assessed. Abdominal wall: Normal. Musculoskeletal: Normal. IMPRESSION: 1. Patent vasculature without evidence of acute injury or occlusion. 2. Severe hepatic steatosis, progressed since the prior exam. 3. Indeterminate 12 mm liver lesion, possibly hemangioma. 4. Mild circumstantial bladder wall thickening. This may be due to underdistention, however, correlate with urinalysis to exclude cystitis. 5. Multiple prominent retroperitoneal lymph nodes, possibly reactive. Assessment and Plan 31M p/w RUQ pain and a 4 day history of vomiting. Labs were significant for a bilirubin of 4.7 (direct of 0.9). Pt also had a UTI that is being treated with Cipro. Abdo US, HIDA and MRCP was normal (although no EF was measured). Abdominal US did not visualize a renal calculi that was seen previously. We are treating as PUD on Monday and Monday with Pepsid and PPI IV pushes and NPO to see if that relieves the pain. If that does not relieve the pain likely will have an EGD on Monday. CT Abdo and Pelvis today showed possible bronchitis. Bilirubin is downtrending and we are replacing folate with 1mg daily. RUQ Abdominal Pain 2/2 GI Pathology vs * Continues to have pain, not improving, not worsening. * Patient is getting 4mg of IV Morphine approximately every 3 hours. * Renal and gallbladder US both WNL. * HIDA ordered and showed delayed emptying at sphincter but the EF was not measured. * Total bilirubin downtrending from 4.7 to 2.9 * c/w morphine 2mg and 4mg Q2 for pain * Zofran prn for nausea * GI Recs - * Hepatitis neg, mono neg, ARNOLDO, ASMA,AMA, CMV, rest of EBV pending * anemia--Fe sat low so needs EGD, B12 normal. Folate low * EGD on Monday. * Getting a TSH and Morning Cortisol. * Carafate Solution today. * Repleting Folate with 1mg daily. * Adding Pepsid IV BID + PPI IV Push BID. Anemia * FOBT Today Pending. UTI * Afebrile, pt has no urinary symptoms, no elevated WBC. * UA was positive for infection, * Cultures have shown Coag Negative Staph, resistant to Bactrim, sensitive to Oxacillin (pt is allergic), Tetracycline, Vanco and Dapto. * c/w Cipro 400mg BID IV , Day #3. HTN * Holding the Verapamil because it can cause gastritis. * Starting on HCTZ 25mg daily. Asthma * Continue Advair BID and Albuterol prn PTSD/Bipolar/ADHD * Continue Amitriptyline 25mg daily. Diet: Full Liquid DVT: Hep SQ TID Code: FULL Resident Involvement: Resident Care Provided Care Provided: Adult [facility] Medicine Assessment/Plan Resident Physician Supervision Note: I was present with Dr. Altamirano during the history and exam. I discussed the case with the resident and agree with the findings and plan as documented in the note. Any exceptions or clarifications are listed here. 31 y/o male h/o HTN, asthma, bipolar d/o, PTSD presents w/ 4 days N/V/abd pain without apparent trigger or association with food. Mildly improved pain which pt reports is controlled with present medication with nausea w/o vomiting. RUQ TTP which radiates locally to the flank with considerable apprehension and guarding. No suprapubic TTP. CTAB, S1/S2 nl RRR no MCG. Regarding the abdominal pain, nausea and vomiting, US, HIDA, MRCP completed. GI consulted. CT today shows hepatosteatosis with further lab studies pending. Will likely need EGD on Monday. Continue PPI IV, zofran, with ranitidine and carafate. Urine culture +ve for coag neg staph on cipro day 3. Pain controlled with present regimen and will continue.
[2016-12-17] MEDS: FAMOTIDINE IV INJ 20 MG in SYRINGE 3 ML IV SCH ×2 (11:22→23:32)
--- NOTE | 2016-12-17 11:48 | DIAGNOSTIC IMAGING REPORT ---
ADDENDUM ADDITIONAL IMPRESSION: 6. Vague groundglass nodularity in the superior segments of the lower lobes raises concern for infectious bronchiolitis. The report will be called/faxed according to standard departmental protocol. Electronically signed by: Mo Parry M.D. 12/17/2016 12:14 PM Dictated Date/Time: 12/17/2016 12:13 PM ORIGINAL REPORT ANGIO ABD/PELVIS WITH CONTRAST CLINICAL HISTORY: 31 years-old Male presenting with abdominal pain, nausea, vomiting. TECHNIQUE: Multidetector CT angiography of the abdomen and pelvis was performed after the administration of intravenous contrast. 3-D volumetric and/or maximum intensity projection (MIP) images were subsequently reconstructed for review. IV contrast: 94 mL of Optiray 320. A dose lowering technique was used consistent with the principles of ALARA (as low as reasonably achievable). Stenosis measurements were based on NASCET-like criteria. COMPARISON: 05/09/2016. CT DOSE (mGy.cm): The estimated cumulative dose is 1096.14 mGy.cm. FINDINGS: [employer] topogram: Unremarkable. Lung bases: Minimal groundglass opacity noted in the superior segments of the bilateral lower lobes with associated bronchial wall thickening. Mosaic attenuation also noted which could suggest small airways disease. Normal heart size. No pericardial or pleural effusion. Liver: Normal morphology. Severe hepatic steatosis, which has progressed since the prior exam. Hyperdense lesion in the right hepatic lobe measuring 12 mm, indeterminate but possibly hemangioma. Patent hepatic vasculature. Conventional hepatic arterial anatomy. Biliary: No intrahepatic or extrahepatic biliary ductal dilatation. Mild distention of the otherwise normal-appearing gallbladder, likely physiologic. Pancreas: Mild parenchymal atrophy. Relative hyperdensity in the region of the pancreatic head may relate to relative sparing of atrophic change within a portion of the pancreas (series 2 image 172). Spleen: Normal. Adrenal glands: Normal. Kidneys and ureters: Normal. No hydronephrosis. Bladder: Mild circumferential bladder wall thickening. Pelvic organs: Prostate and seminal vesicles normal. Bowel: Post surgical changes of prior appendectomy. No bowel obstruction. Intramural fat deposition in the distal small bowel, nonspecific but can be seen in the setting of chronic inflammation, extended exposure steroids, or obesity. Peritoneal cavity: No free fluid or intraperitoneal gas. Lymph nodes: Multiple subcentimeter prominent retroperitoneal and upper abdominal lymph nodes. The largest lymph node is located in the region of the celiac axis and measures 9 mm in the short axis (series 2 image 121). Vasculature: Aorta and major branch vessels patent. No evidence of acute aortic injury or vessel occlusion. Due to the phase of contrast the veins cannot be assessed. Abdominal wall: Normal. Musculoskeletal: Normal. IMPRESSION: 1. Patent vasculature without evidence of acute injury or occlusion. 2. Severe hepatic steatosis, progressed since the prior exam. 3. Indeterminate 12 mm liver lesion, possibly hemangioma. 4. Mild circumstantial bladder wall thickening. This may be due to underdistention, however, correlate with urinalysis to exclude cystitis. 5. Multiple prominent retroperitoneal lymph nodes, possibly reactive. Electronically signed by: Mo Parry M.D. 12/17/2016 11:47 AM Dictated Date/Time: 12/17/2016 11:33 AM
--- NOTE | 2016-12-17 12:43 | Gastroenterology Progress Note ---
Progress Note Date of Service: Dec 17, 2016 Subjective Pt evaluation today including: conversation w/ patient, physical exam, chart review, lab review, review of studies, review of inpatient medication list CC f/u RUQ pain HPI Abd pain about the same. Some nausea in last 24 hours but no vomiting. Review of Systems Respiratory: No shortness of breath Cardiac: No chest pain Medications Current Inpatient Medications Medications (Trade) Dose Ordered Sig/Reena Route Start Time Stop Time Status Last Admin Dose Admin Al Hydrox/Mg Hydrox/Simethicone (Maalox Max Susp) 15 ml Q4H PRN PO 12/14/16 17:15 01/13/17 17:14 Magnesium Hydroxide (Milk Of Magnesia Susp) 30 ml Q6H PRN PO 12/14/16 17:15 01/13/17 17:14 Polyethylene (Miralax Powder Packet) 17 gm DAILY PRN PO 12/14/16 17:15 01/13/17 17:14 Ondansetron HCl (Zofran Inj) 4 mg Q6H PRN IV 12/14/16 17:15 01/13/17 17:14 12/16/16 20:47 4 MG Ciprofloxacin/ Dextrose 400 mg/ Prmx 200 ml @ 100 mls/hr Q12@0400,1600 IV 12/15/16 04:00 12/24/16 15:59 12/17/16 03:50 100 MLS/HR Morphine Sulfate (MoRPHine SULFATE INJ) 4 mg Q2HWA PRN IV 12/14/16 17:15 12/28/16 17:14 12/17/16 09:03 4 MG Morphine Sulfate (MoRPHine SULFATE INJ) 2 mg Q2HWA PRN IV 12/14/16 17:15 12/28/16 17:14 12/14/16 21:48 2 MG Albuterol (Ventolin Hfa Inhaler) PRN Q6 PRN INH 12/14/16 17:15 01/13/17 17:14 Albuterol Sulfate (Ventolin 0.083% 2.5MG/3ML Neb) 2.5 mg Q4H PRN INH 12/14/16 17:15 01/13/17 17:14 Amitriptyline HCl (Elavil Tab) 25 mg HS PO 12/14/16 21:00 01/13/17 20:59 12/16/16 20:43 25 MG Salmeterol Xinafoate/ Fluticasone (Advair Diskus 250/50 Inh) 2 puff BID INH 12/14/16 20:00 01/13/17 20:59 12/17/16 08:58 2 PUFF Pantoprazole Sodium 40 mg/ Syringe 10 ml @ 5 mls/min BID@09,21 IV 12/14/16 21:00 01/13/17 20:59 12/17/16 08:58 5 MLS/MIN Sodium Chloride 1,000 ml @ 80 mls/hr [id number] IV 12/16/16 17:00 01/15/17 16:59 12/17/16 05:26 80 MLS/HR Sucralfate (Carafate Tab) 1 gm QID PO 12/17/16 12:00 01/16/17 11:59 Hydrochlorothiazide (Hydrochlorothiazide Tab) 25 mg QAM PO 12/18/16 08:00 01/17/17 07:59 Folic Acid (Folvite Tab) 1 mg QAM PO 12/18/16 08:00 01/17/17 07:59 Famotidine 20 mg/ Syringe 5 ml @ 2.5 mls/min Q12H IV 12/17/16 12:00 01/16/17 11:59 12/17/16 11:22 2.5 MLS/MIN Heparin Sodium (Porcine) (Heparin Sq 5000 Unit/0.5ml) 5,000 unit Q8 SQ 12/17/16 14:00 01/16/17 13:59 Objective Vital Signs Date Time Temp Pulse Resp B/P (MAP) Pulse Ox O2 Delivery O2 Flow Rate FiO2 12/17/16 08:39 36.4 99 20 159/109 (126) 99 12/17/16 07:45 Room Air 12/17/16 00:16 37.2 106 20 159/99 (119) 96 Room Air 12/17/16 00:01 96 Room Air 12/16/16 20:49 17 144/92 (109) 95 Room Air 12/16/16 16:00 98 Room Air 12/16/16 15:30 37.0 104 18 156/100 (118) 98 Room Air 160/96 (117) 12/16/16 13:31 138/89 (105) Physical Exam General Appearance: WD/WN, no apparent distress Respiratory/Chest: lungs clear, no respiratory distress Cardiovascular: regular rate, rhythm, no murmur Abdomen: normal bowel sounds, soft, no organomegaly, no pulsatile mass, + pertinent finding (subjective RUQ pain but no guarding) Neurologic/Psych: alert, normal mood/affect, oriented x 3 Laboratory Results Last 24 Hours Test 12/16/16 16:17 12/17/16 05:16 White Blood Count 4.20 K/uL Red Blood Count 3.76 M/uL Hemoglobin 10.2 g/dL Hematocrit 32.1 % Mean Corpuscular Volume 85.4 fL Mean Corpuscular Hemoglobin 27.1 pg Mean Corpuscular Hemoglobin Concent 31.8 g/dl Platelet Count 155 K/uL Mean Platelet Volume 9.7 fL Neutrophils (%) (Auto) 58.6 % Lymphocytes (%) (Auto) 29.0 % Monocytes (%) (Auto) 9.3 % Eosinophils (%) (Auto) 1.9 % Basophils (%) (Auto) 0.5 % Neutrophils # (Auto) 2.46 K/uL Lymphocytes # (Auto) 1.22 K/uL Monocytes # (Auto) 0.39 K/uL Eosinophils # (Auto) 0.08 K/uL Basophils # (Auto) 0.02 K/uL RDW Standard Deviation 46.9 fL RDW Coefficient of Variation 15.2 % Immature Granulocyte % (Auto) 0.7 % Immature Granulocyte # (Auto) 0.03 K/uL Prothrombin Time 10.9 SECONDS Prothromb Time International Ratio 1.0 Activated Partial Thromboplast Time 22.4 SECONDS Partial Thromboplastin Ratio 0.9 Sodium Level 137 mmol/L Potassium Level 3.7 mmol/L Chloride Level 105 mmol/L Carbon Dioxide Level 24 mmol/L Anion Gap 8.0 mmol/L Blood Urea Nitrogen 8 mg/dl Creatinine 0.95 mg/dl Est Creatinine Clear Calc Drug Dose 135.8 ml/min Estimated GFR () 121.4 Estimated GFR (Non- 104.8 BUN/Creatinine Ratio 8.2 Random Glucose 79 mg/dl Calcium Level 8.3 mg/dl Iron Level 38 mcg/dl Total Iron Binding Capacity 285 mcg/dl Transferrin 236 mg/dl Transferrin % Saturation 12 % Ferritin 301.7 ng/ml Total Bilirubin 2.7 mg/dl Aspartate Amino Transf (AST/SGOT) 84 U/L Alanine Aminotransferase (ALT/SGPT) 52 U/L Alkaline Phosphatase 114 U/L Total Protein 6.2 gm/dl Albumin 3.1 gm/dl Globulin 3.1 gm/dl Albumin/Globulin Ratio 1.0 Vitamin B12 Level 792 pg/mL Folate 4.92 ng/mL Monoscreen NEG Assessment and Plan RUQ pain--CTA A/P I ordered today negative for vascular cause. Continue PPI, Anticipate EGD monday will need done elev LFTS acute hep neg, mono neg, ARNOLDO, ASMA,AMA, CMV, rest of EBV pending-- improved anemia--Fe sat low so needs EGD, B12 normal. Folate low folate deficiency supplement possible Bronchiolitis on CT scan--he denies cough so or other pulm symptoms so clinically does not seem to have it--defer to primary team
[2016-12-17] MEDS: SUCRALFATE 1 GM TAB PO SCH ×3 (14:04→20:31)
[2016-12-17] MEDS: HEPARIN SOD 5000 UNIT/0.5 ML CARP SQ SCH ×2 (14:08→20:30)
[2016-12-17 15:24] VITALS: BP 137/96; PULSE 95; TEMP 37.2; O2SAT 98
[2016-12-17 16:00] VITALS: O2SAT 98
[2016-12-17] MEDS ORDERED: DOCUSATE SODIUM 100 MG/10 ML UDC PO STA (19:28)
[2016-12-17] MEDS ORDERED: POLYETHYLENE (MIRALAX) 17 GM PACK PO ONE (19:30)
[2016-12-17] MEDS: AMITRIPTYLINE HCL 25 MG TAB PO SCH (20:31)
[2016-12-17 23:39] VITALS: BP 146/93; PULSE 95; TEMP 36.7; O2SAT 95
[2016-12-18] MEDS: CIPROFLOXACIN / D5W 400 MG in PREMIXED IN D5W 200 ML IV SCH ×2 (04:15→16:13)
[2016-12-18] MEDS: HEPARIN SOD 5000 UNIT/0.5 ML CARP SQ SCH ×3 (05:50→22:14)
[2016-12-18] MEDS ORDERED: DOCUSATE SODIUM 100 MG/10 ML UDC PO STA (07:12)
--- NOTE | 2016-12-18 07:15 | Family Medicine Progress Note ---
Progress Note Date of Service Dec 18, 2016. Subjective Pt evaluation today including: conversation w/ patient, physical exam, chart review, lab review The patient was seen and examined at bedside. No acute overnight events. Patient is resting comfortably in bed. COntinues to have abdominal pain, slightly improved, 7/10 in the RUQ. Tolerating a full liquid diet. Pooped this AM. FOBT negative. Plan of care was described to the patient and all questions were answered. Constitutional: No fever, No chills, No sweats ENT: No hearing loss Respiratory: No cough, No sputum, No wheezing, No shortness of breath Cardiovascular: No chest pain Abdomen: No pain, No nausea, No vomiting, No diarrhea Musculoskeletal: No joint pain, No muscle pain Male : No dysuria, No incontinence Neurologic: No memory loss Endo: No fatigue Objective Physical Exam Notes: General Appearance: WD/WN, no apparent distress. Similar exam to previous day. 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 Labs were significant for a bilirubin of 4.7 (direct of 0.9). Pt also had a UTI that is being treated with Cipro. Abdo US, HIDA and MRCP was normal (although no EF was measured). Abdominal US did not visualize a renal calculi that was seen previously. We are treating as PUD on Monday and Monday with Pepsid and PPI IV pushes and NPO to see if that relieves the pain. If that does not relieve the pain likely will have an EGD on Monday. CT Abdo and Pelvis today showed possible bronchitis. Bilirubin is downtrending and we are replacing folate with 1mg daily. RUQ Abdominal Pain 2/2 GI Pathology vs * Continues to have pain, not improving, not worsening. * Patient is getting 4mg of IV Morphine approximately every 3 hours. * Renal and gallbladder US both WNL. * HIDA ordered and showed delayed emptying at sphincter but the EF was not measured. * Total bilirubin downtrending from 4.7 to 2.9 * c/w morphine 2mg and 4mg Q2 for pain * Zofran prn for nausea * GI Recs - * Hepatitis neg, mono neg, ARNOLDO, ASMA,AMA, CMV, rest of EBV pending * anemia--Fe sat low so needs EGD, B12 normal. Folate low * EGD on Monday. * TSH and Morning Cortisol within normal limits. * Carafate held because of EGD tomorrow. * c/w Folate with 1mg daily. * c/w Pepsid IV BID + PPI IV Push BID. Anemia * FOBT negative. * c/w Folate. UTI * Afebrile, pt has no urinary symptoms, no elevated WBC. * UA was positive for infection, * Cultures have shown Coag Negative Staph, resistant to Bactrim, sensitive to Oxacillin (pt is allergic), Tetracycline, Vanco and Dapto. * c/w Cipro 400mg BID IV , Day #4. HTN * Holding the Verapamil because it can cause gastritis. * c/w HCTZ 25mg daily. Asthma * Continue Advair BID and Albuterol prn PTSD/Bipolar/ADHD * Continue Amitriptyline 25mg daily. Diet: Full Liquid DVT: Hep SQ TID Code: FULL Resident Involvement: Resident Care Provided Care Provided: Adult Hospital Medicine Assessment/Plan Resident Physician Supervision Note: I was present with Dr. Altamirano during the history and exam. I discussed the case with the resident and agree with the findings and plan as documented in the note. Any exceptions or clarifications are listed here. 31 y/o male h/o HTN, asthma, bipolar d/o, PTSD presents w/ 4 days N/V/abd pain without apparent trigger or association with food. Mildly improved pain which pt reports is controlled with present medication with nausea w/o vomiting. RUQ TTP which radiates locally to the flank with considerable apprehension and guarding. No suprapubic TTP. CTAB, S1/S2 nl RRR no MCG. Regarding the abdominal pain, nausea and vomiting, US, HIDA, MRCP completed. GI consulted. CT w/ hepatosteatosis with further lab studies pending. EGD on Monday. Continue PPI IV, zofran, with ranitidine and carafate. Urine culture + ve for coag neg staph on cipro day 3. Pain controlled with present regimen and will continue.
[2016-12-18 07:20] VITALS: BP 132/86; PULSE 77; TEMP 36.6; O2SAT 98
[2016-12-18 07:28] LABS: BASO ABS # 0.04 K/uL (0-0.2); COMPLETE YES; EOS % 2.9 %; HEMATOCRIT 37.9 % (42-52); IG% 0.8 %; LYMPH % 35.9 %; LYMPH ABS # 1.37 K/uL (1.2-3.4); MEAN CELL VOLUME 86.9 fL (80-100); MEAN CORPUSCULAR HEMOGLOBIN 26.8 pg (25-34); MEAN CORPUSCULAR HGB CONC 30.9 g/dl (32-36); MEAN PLATELET VOLUME 9.8 fL (7.4-10.4); MONO % 11.8 %; NEUT % 47.6 %; PLATELET COUNT 216 K/uL (130-400); RED BLOOD COUNT 4.36 M/uL (4.7-6.1); WHITE BLOOD COUNT 3.82 K/uL (4.8-10.8)
[2016-12-18] MEDS: MoRPHine SULFATE 4 MG/ML 1 ML CARP\\VIAL IV PRN ×4 (07:57→20:08)
[2016-12-18] MEDS ORDERED: LOSARTAN POTASSIUM 25 MG TAB PO SCH (08:00)
[2016-12-18 08:01] LABS: CALCIUM 8.8 mg/dl (8.5-10.1); CREATININE 1.02 mg/dl (0.60-1.40); POTASSIUM 3.8 mmol/L (3.5-5.1)
[2016-12-18] MEDS: HYDROCHLOROTHIAZIDE 25 MG TAB PO SCH (08:02)
[2016-12-18] MEDS: SUCRALFATE 1 GM TAB PO SCH ×2 (08:02→12:11)
[2016-12-18 08:12] LABS: THYROID STIMULATING HORMONE 1.99 uIu/ml (0.300-4.500)
[2016-12-18] MEDS: FLUTICASONE/SALMETEROL 250/50 (ADVAIR) 14 PUFF/1 INHALER INH SCH ×2 (08:57→20:11)
[2016-12-18] MEDS: POLYETHYLENE (MIRALAX) 17 GM PACK PO SCH (08:58)
[2016-12-18] MEDS: PANTOprazole INJ 40 MG in SYRINGE 0 ML IV SCH ×2 (08:58→22:13)
[2016-12-18] MEDS: FAMOTIDINE IV INJ 20 MG in SYRINGE 3 ML IV SCH (12:10)
--- NOTE | 2016-12-18 12:37 | Gastroenterology Progress Note ---
Progress Note Date of Service: Dec 18, 2016 Subjective Pt evaluation today including: conversation w/ patient, conversation w/ family (mother), physical exam, chart review, lab review, review of studies, review of inpatient medication list CC f/u RUQ pain HPI Pt states RUQ pain about the same. Tolerating limited diet but still nausated. No vomiting. Review of Systems Respiratory: No shortness of breath Cardiac: No chest pain Medications Current Inpatient Medications Medications (Trade) Dose Ordered Sig/Reena Route Start Time Stop Time Status Last Admin Dose Admin Al Hydrox/Mg Hydrox/Simethicone (Maalox Max Susp) 15 ml Q4H PRN PO 12/14/16 17:15 01/13/17 17:14 Magnesium Hydroxide (Milk Of Magnesia Susp) 30 ml Q6H PRN PO 12/14/16 17:15 01/13/17 17:14 Polyethylene (Miralax Powder Packet) 17 gm DAILY PRN PO 12/14/16 17:15 01/13/17 17:14 Ondansetron HCl (Zofran Inj) 4 mg Q6H PRN IV 12/14/16 17:15 01/13/17 17:14 12/16/16 20:47 4 MG Ciprofloxacin/ Dextrose 400 mg/ Prmx 200 ml @ 100 mls/hr Q12@0400,1600 IV 12/15/16 04:00 12/24/16 15:59 12/18/16 04:15 100 MLS/HR Morphine Sulfate (MoRPHine SULFATE INJ) 4 mg Q2HWA PRN IV 12/14/16 17:15 12/28/16 17:14 12/18/16 12:10 4 MG Morphine Sulfate (MoRPHine SULFATE INJ) 2 mg Q2HWA PRN IV 12/14/16 17:15 12/28/16 17:14 12/14/16 21:48 2 MG Albuterol (Ventolin Hfa Inhaler) PRN Q6 PRN INH 12/14/16 17:15 01/13/17 17:14 Albuterol Sulfate (Ventolin 0.083% 2.5MG/3ML Neb) 2.5 mg Q4H PRN INH 12/14/16 17:15 01/13/17 17:14 Amitriptyline HCl (Elavil Tab) 25 mg HS PO 12/14/16 21:00 01/13/17 20:59 12/17/16 20:31 25 MG Salmeterol Xinafoate/ Fluticasone (Advair Diskus 250/50 Inh) 2 puff BID INH 12/14/16 20:00 01/13/17 20:59 12/18/16 08:57 2 PUFF Pantoprazole Sodium 40 mg/ Syringe 10 ml @ 5 mls/min BID@09,21 IV 12/14/16 21:00 01/13/17 20:59 12/18/16 08:58 5 MLS/MIN Sodium Chloride 1,000 ml @ 80 mls/hr [id number] IV 12/16/16 17:00 01/15/17 16:59 12/17/16 23:16 80 MLS/HR Sucralfate (Carafate Tab) 1 gm QID PO 12/17/16 12:00 01/16/17 11:59 12/18/16 12:11 1 GM Hydrochlorothiazide (Hydrochlorothiazide Tab) 25 mg QAM PO 12/18/16 08:00 01/17/17 07:59 12/18/16 08:02 25 MG Folic Acid (Folvite Tab) 1 mg QAM PO 12/18/16 08:00 01/17/17 07:59 12/18/16 07:59 1 MG Famotidine 20 mg/ Syringe 5 ml @ 2.5 mls/min Q12H IV 12/17/16 12:00 01/16/17 11:59 12/18/16 12:10 2.5 MLS/MIN Heparin Sodium (Porcine) (Heparin Sq 5000 Unit/0.5ml) 5,000 unit Q8 SQ 12/17/16 14:00 01/16/17 13:59 12/18/16 05:50 5,000 UNIT Folic Acid (Folvite Tab) 1 mg QAM PO 12/17/16 12:45 01/16/17 12:44 12/18/16 08:00 1 MG Polyethylene (Miralax Powder Packet) 17 gm DAILY PO 12/18/16 07:12 01/17/17 07:11 12/18/16 08:58 17 GM Objective Vital Signs Date Time Temp Pulse Resp B/P (MAP) Pulse Ox O2 Delivery O2 Flow Rate FiO2 11/12/17 07:20 36.6 77 20 132/86 (101) 98 12/18/16 00:00 Room Air 12/17/16 23:39 36.7 95 20 146/93 (110) 95 Room Air 12/17/16 16:00 98 Room Air 12/17/16 15:24 37.2 95 18 137/96 (110) 98 Room Air Physical Exam General Appearance: WD/WN, no apparent distress Respiratory/Chest: lungs clear, no respiratory distress Cardiovascular: regular rate, rhythm, no edema, no murmur Abdomen: normal bowel sounds, soft, no organomegaly, no pulsatile mass, + guarding (RUQ but no rebound) Extremities: normal inspection Neurologic/Psych: normal mood/affect, oriented x 3 Laboratory Results Last 24 Hours Test 12/18/16 07:12 12/18/16 11:20 White Blood Count 3.82 K/uL Red Blood Count 4.36 M/uL Hemoglobin 11.7 g/dL Hematocrit 37.9 % Mean Corpuscular Volume 86.9 fL Mean Corpuscular Hemoglobin 26.8 pg Mean Corpuscular Hemoglobin Concent 30.9 g/dl Platelet Count 216 K/uL Mean Platelet Volume 9.8 fL Neutrophils (%) (Auto) 47.6 % Lymphocytes (%) (Auto) 35.9 % Monocytes (%) (Auto) 11.8 % Eosinophils (%) (Auto) 2.9 % Basophils (%) (Auto) 1.0 % Neutrophils # (Auto) 1.82 K/uL Lymphocytes # (Auto) 1.37 K/uL Monocytes # (Auto) 0.45 K/uL Eosinophils # (Auto) 0.11 K/uL Basophils # (Auto) 0.04 K/uL RDW Standard Deviation 48.0 fL RDW Coefficient of Variation 15.4 % Immature Granulocyte % (Auto) 0.8 % Immature Granulocyte # (Auto) 0.03 K/uL Sodium Level 139 mmol/L Potassium Level 3.8 mmol/L Chloride Level 104 mmol/L Carbon Dioxide Level 25 mmol/L Anion Gap 10.0 mmol/L Blood Urea Nitrogen 5 mg/dl Creatinine 1.02 mg/dl Est Creatinine Clear Calc Drug Dose 126.5 ml/min Estimated GFR () 111.4 Estimated GFR (Non- 96.1 BUN/Creatinine Ratio 5.0 Random Glucose 84 mg/dl Calcium Level 8.8 mg/dl Total Bilirubin 2.2 mg/dl Aspartate Amino Transf (AST/SGOT) 124 U/L Alanine Aminotransferase (ALT/SGPT) 72 U/L Alkaline Phosphatase 145 U/L Total Protein 7.1 gm/dl Albumin 3.5 gm/dl Globulin 3.6 gm/dl Albumin/Globulin Ratio 1.0 Thyroid Stimulating Hormone (TSH) 1.990 uIu/ml Cortisol AM Sample 18.90 mcg/dl Assessment and Plan RUQ pain---ongoing, EGD for tomorrow (monday). elev LFTS acute hep neg, mono neg, ARNOLDO, ASMA,AMA, CMV, rest of EBV pending-- improved Fe def anemia--- EGD, folate deficiency--- supplement possible Bronchiolitis on CT scan--he denies cough so or other pulm symptoms so clinically does not seem to have it--defer to primary team DCed carafate because will inhibit viewing of mucosa time of EGD
[2016-12-18 14:50] VITALS: BP 151/100; PULSE 120; TEMP 36.7; O2SAT 97
[2016-12-18] MEDS: SODIUM CHLORIDE 0.9% 1000ML 1,000 ML IV SCH (19:00)
[2016-12-18] MEDS: AMITRIPTYLINE HCL 25 MG TAB PO SCH (22:13)
[2016-12-18 22:57] VITALS: BP 160/105; PULSE 115; TEMP 36.9; O2SAT 98
[2016-12-19] MEDS: FAMOTIDINE IV INJ 20 MG in SYRINGE 3 ML IV SCH ×2 (00:07→11:23)
[2016-12-19] MEDS: MoRPHine SULFATE 4 MG/ML 1 ML CARP\\VIAL IV PRN ×2 (00:38→04:26)
[2016-12-19] MEDS: CIPROFLOXACIN / D5W 400 MG in PREMIXED IN D5W 200 ML IV SCH ×2 (04:25→16:34)
[2016-12-19] MEDS: HEPARIN SOD 5000 UNIT/0.5 ML CARP SQ SCH ×2 (06:06→13:36)
[2016-12-19 06:40] VITALS: BP 130/91; PULSE 81; TEMP 36.5; O2SAT 97
[2016-12-19 06:49] VITALS: BP 130/91; PULSE 81; TEMP 36.5; O2SAT 97
[2016-12-19 07:22] LABS: BASO % 0.8 %; BASO ABS # 0.03 K/uL (0-0.2); COMPLETE YES; EOS % 3.2 %; HEMATOCRIT 33.3 % (42-52); IG% 1.1 %; LYMPH % 38.6 %; LYMPH ABS # 1.44 K/uL (1.2-3.4); MEAN CELL VOLUME 86.5 fL (80-100); MEAN CORPUSCULAR HEMOGLOBIN 27.3 pg (25-34); MEAN CORPUSCULAR HGB CONC 31.5 g/dl (32-36); MEAN PLATELET VOLUME 9.4 fL (7.4-10.4); MONO % 12.3 %; PLATELET COUNT 191 K/uL (130-400); RED BLOOD COUNT 3.85 M/uL (4.7-6.1); WHITE BLOOD COUNT 3.73 K/uL (4.8-10.8)
[2016-12-19] MEDS ORDERED: MoRPHine SULFATE 2 MG/ML CARP IV PRN ×3 (07:45→12:00)
[2016-12-19 08:00] LABS: BUN/CREATININE RATIO 2.4 (10-20); CREATININE 0.94 mg/dl (0.60-1.40); POTASSIUM 3.7 mmol/L (3.5-5.1)
[2016-12-19] MEDS: POLYETHYLENE (MIRALAX) 17 GM PACK PO SCH (08:00)
[2016-12-19] MEDS: HYDROCHLOROTHIAZIDE 25 MG TAB PO SCH (08:21)
[2016-12-19] MEDS: SODIUM CHLORIDE 0.9% 1000ML 1,000 ML IV SCH (08:21)
[2016-12-19] MEDS: FLUTICASONE/SALMETEROL 250/50 (ADVAIR) 14 PUFF/1 INHALER INH SCH (08:21)
[2016-12-19] MEDS: PANTOprazole INJ 40 MG in SYRINGE 0 ML IV SCH (08:22)
[2016-12-19 10:48] LABS: BENZODIAZEPINE, URINE NEG (NEG); COCAINE,URINE NEG (NEG); PHENCYCLIDINE, URINE NEG (NEG)
[2016-12-19] MEDS ORDERED: LIDOCAINE HCL 2% 2 ML VIAL (20MG/ML) ONE (14:39)
[2016-12-19] MEDS ORDERED: MIDAZOLAM HCL 1 MG/ML 2ML VIAL ONE (14:39)
[2016-12-19] MEDS ORDERED: PROPOFOL IV EMULSION 10 MG/ML 20 ML VIAL IV ONE (14:39)
--- NOTE | 2016-12-19 14:42 | Endo History and Physical ---
History & Physical Date of Service: Dec 19, 2016. Chief Complaint: RUq pain Referring Physician: History of Present Illness Ongoing RUQ pain for EGD today Past Surgical History Hx Cardiac Surgery: No Hx Abdominal Surgery: Yes (Appendectomy) Hx Post-Op Nausea and Vomiting: No Hx Cancer Surgery: No Hx Thoracic Surgery: No Hx Orthopedic: Yes (right elbow, left shoulder, right knee) Hx Urinary Tract Surgery: No Social History Smoking Status: Never Smoker Hx Substance Use: No Hx Alcohol Use: No Allergies Coded Allergies: Penicillins (Verified Allergy, Intermediate, ITCHY BLOTCHES, 12/14/16) Naproxen (Unverified Allergy, Unknown, ITCHY, 12/14/16) Red Dye (Verified Allergy, Unknown, HIVES, 12/14/16) Current Medications Reported Home Medications Medications Dose Route/Sig Max Daily Dose Days Date Category Elavil (Amitriptyline Hcl) 25 Mg Tab 25 Mg PO HS 12/14/16 Reported Verelan Pm (Verapamil HCl) 100 Mg Ercap 100 Mg PO QAM 12/14/16 Reported Advair Diskus 250/50 60 Dose (Fluticasone Prop/Salmeterol) 1 Ea Aerp 2 Puff INH BID 08/14/16 Reported Proventil 0.083% 2.5MG/3ML (Albuterol Sulf) 2.5 Mg/3 Ml Nebu 2.5 Mg INH PRN 03/18/16 Reported Ventolin Hfa (Albuterol) 200 Puffs/99179 Mcg Aers 2-4 Puffs INH BID 03/18/16 Reported Vital Signs Weight (Kilograms): 97.270 Height (Feet): 6 Height (Inches): 1.00 Date Time Temp Pulse Resp B/P (MAP) Pulse Ox O2 Delivery O2 Flow Rate FiO2 12/19/16 08:00 Room Air 12/19/16 06:49 36.5 81 16 130/91 (104) 97 Room Air 12/19/16 06:40 36.5 81 16 130/91 97 Room Air 12/19/16 00:00 Room Air 12/18/16 22:57 36.9 115 20 160/105 (123) 98 Room Air 12/18/16 20:00 Room Air 12/18/16 16:00 Room Air 12/18/16 14:50 36.7 120 20 151/100 (117) 97 Physical Exam General Appearance: WD/WN, no apparent distress Respiratory/Chest: Respiratory effort: no dyspnea Auscultation: breath sounds normal Cardiovascular: Heart Auscultation: no murmurs Abdomen: Bowel Sounds: normal Inspection & Palpation: soft, non-distended, pertinent finding (subjective RUQ pain but no guarding.) Assessment and Plan RUQ pain--for EGD today. Proc and risks explained to patient which include but not limited to med reaction, bleeding, perforation, and aspiration.
--- NOTE | 2016-12-19 15:44 | GI REPORT ---
Procedure Date: 12/19/2016 3:05 PM Procedure: Upper GI endoscopy Indications: Abdominal pain in the right upper quadrant Medicines: Monitored Anesthesia Care Complications: No immediate complications. Estimated blood loss: Minimal. Estimated Blood Loss: Estimated blood loss was minimal. Procedure: Pre-Anesthesia Assessment: - The risks and benefits of the procedure and the sedation options and risks were discussed with the patient. All questions were answered and informed consent was obtained. - Patient identification and proposed procedure were verified prior to the procedure by the physician, the nurse and the neck skewer. The procedure was verified in the procedure room. After obtaining informed consent, the endoscope was passed under direct vision. Throughout the procedure, the patient's blood pressure, pulse, and oxygen saturations were monitored continuously. The scope was introduced through the mouth, and advanced to the second part of duodenum. The upper GI endoscopy was accomplished without difficulty. The patient tolerated the procedure well. Procedure and risks explained to patient which include but not limited to medication reaction, bleeding, perforation, aspiration , and missed lesions. Judicious gas insufflation was used and gas removal done on the way out. The lumen was always visualized when advancing the scope. Prep was good. Washes and suctioning used as needed to get good visualization of the mucosa. Retroflexion to look at the fundus and cardia of the stomach and GE junction was done. Findings: LA Grade B (one or more mucosal breaks greater than 5 mm, not extending between the tops of two mucosal folds) esophagitis was found. Biopsies were taken with a cold forceps for histology of GE junction where some nodular eryethema was as well as lower esophagus. Estimated blood loss was minimal. Esophagogastric landmarks were identified: the Z-line was found at 36 cm from the incisors. The gastric antrum was normal. Biopsies were taken with a cold forceps for Helicobacter pylori testing. Estimated blood loss was minimal. The examined duodenum was normal including normal visualized major papilla. The exam was otherwise without abnormality. Impression: - LA Grade B reflux esophagitis. Biopsied. - Esophagogastric landmarks identified. - Normal antrum. Biopsied. - Normal examined duodenum. - The examination was otherwise normal. Recommendation: - Return patient to hospital [facility] for ongoing care. - Continue PPI for esophagitis. Endoscopic findings do not explain the patients abdominal pain so recommend his back be investigated to look for nerve compression causing neuropathic pain. Kyle D. Mcdaniels, M.Michelle Mcdaniels MD 12/19/2016 3:43:30 PM This report has been signed electronically. Note Initiated On: 12/19/2016 3:05 PM I attest to the content of the Intraoperative Record and orders documented therein, exceptions below
--- NOTE | 2016-12-19 16:02 | Anesthesiology Progress Note ---
Anesthesia Post Op Note Date & Time Dec 19, 2016 at 16:02 Vital Signs Pain Intensity: 0 Vital Signs Past 12 Hours Date Time Temp Pulse Resp B/P (MAP) Pulse Ox O2 Delivery O2 Flow Rate FiO2 12/19/16 15:56 80 18 124/78 (93) 95 Room Air 12/19/16 15:40 85 18 124/84 (97) 97 Room Air 12/19/16 14:49 36.9 90 20 154/105 (121) 98 Room Air 12/19/16 08:00 Room Air 12/19/16 06:49 36.5 81 16 130/91 (104) 97 Room Air 12/19/16 06:40 36.5 81 16 130/91 97 Room Air Notes Mental Status: alert / awake / arousable, participated in evaluation Pt Amnestic to Procedure: Yes Nausea / Vomiting: adequately controlled Pain: adequately controlled Airway Patency, RR, SpO2: stable & adequate BP & HR: stable & adequate Hydration State: stable & adequate Anesthetic Complications: no major complications apparent
[2016-12-19 16:23] VITALS: BP 152/100; PULSE 79; TEMP 36.5; O2SAT 100
[2016-12-19] MEDS ORDERED: FLV1 PO (16:24)
[2016-12-19] MEDS ORDERED: CIPR1TAB11 PO (16:24)
[2016-12-19] MEDS ORDERED: PANT40TA PO (16:24)
[2016-12-19] MEDS ORDERED: HYDR25TA5 PO (16:24)
--- NOTE | 2016-12-19 16:28 | Discharge Instructions ---
Discharge Instructions Date of Service Dec 19, 2016. Admission Reason for Admission: Abdominal Pain Discharge Discharge Diagnosis / Problem: RUQ abdominal pain/ esophagitis Discharge Goals Goal(s): Diagnostic testing, Therapeutic intervention Activity Recommendations Activity Limitations: per Instructions/Follow-up section . Instructions / Follow-Up Instructions / Follow-Up You were found to have mild inflammation of your esophagus when you had your endoscopy They recommend that you take a PPI daily in order to prevent worsening reflux We have also changed your blood pressure medication Please follow up with your PCP If you have any worsening abdominal pain, vomiting, fevers, or chills then please come back to the emergency department Current Hospital Diet Patient's current hospital diet: Regular Diet Discharge Diet Recommended Diet: Regular Diet Procedures Procedures Performed: EGD WITH BX Pending Studies Studies pending at discharge: yes List of pending studies: ARNOLDO Anti-smooth muscle antibody CMV EBV Medical Emergencies . Who to Call and When: Medical Emergencies: If at any time you feel your situation is an emergency, please call 911 immediately. . Non-Emergent Contact Non-Emergency issues call your: Primary Care Provider . . "Provider Documentation" section prepared by Bala Katz. . VTE Core Measure Inpt VTE Proph given/why not?: SCD's
[2016-12-19 16:42] VITALS: BP 152/100; PULSE 79; TEMP 36.5; O2SAT 100
--- NOTE | 2016-12-19 16:49 | Discharge Summary ---
Discharge Summary Date of Service Dec 19, 2016. (Bala Katz MD) Discharge Summary Admission Date: Dec 14, 2016 at 17:15 Discharge Date: Dec 19, 2016 Discharge Disposition: Home Principal Diagnosis: Esophagitis Problems/Secondary Diagnoses: UTI, RUQ abdominal pain Procedures: Upper endoscopy Consultations: GI (Bala Katz MD) Medication Reconciliation New Medications: Ciprofloxacin Tab (Cipro) 250 Mg Tab 1 TAB PO BID for 2 Days, #4 TAB Pantoprazole (Protonix) 40 Mg Tab 40 MG PO DAILY, #30 TAB Folic Acid (Folic Acid) 1 Mg Tab 1 MG PO QAM for 30 Days, #30 TAB Hydrochlorothiazide (Hydrochlorothiazide) 25 Mg Tab 25 MG PO QAM for 30 Days, #30 TAB Continued Medications: Albuterol Hfa (Ventolin Hfa) 200 Puffs/50356 Mcg Aers 2-4 PUFFS INH BID, #1 INHALER Albuterol Sulf (Proventil 0.083% 2.5MG/3ML) 2.5 Mg/3 Ml Nebu 2.5 MG INH PRN, EA Amitriptyline Hcl (Elavil) 25 Mg Tab 25 MG PO HS, TAB Fluticasone Prop/Salmeterol (Advair Diskus 250/50 60 Dose) 1 Ea Aerp 2 PUFF INH BID, INHALER Discontinued Medications: Verapamil (Verelan Pm) 100 Mg Ercap 100 MG PO QAM, CAP Discharge Exam Patient able to eat and without any vomiting Rates pain as a 6-9/10 Went for EGD which showed esophagitis Review of Systems: Constitutional: No fever, No chills, No sweats Respiratory: No cough, No sputum, No shortness of breath, No dyspnea on exertion Cardiovascular: No chest pain, No claudication, No palpitations Abdomen: + pain, No nausea, No vomiting, No diarrhea, No constipation Musculoskeletal: No joint pain, No muscle pain Genitourinary - Female: No dysuria, No urinary frequency, No hematuria Physical Exam: General Appearance: WD/WN, no apparent distress Respiratory/Chest: lungs clear, no respiratory distress, no accessory muscle use Cardiovascular: regular rate, rhythm, no murmur, normal peripheral pulses Abdomen / GI: normal bowel sounds, soft, + tenderness (RUQ tenderness) Extremities: normal inspection, no calf tenderness, no pedal edema, non- tender Neurologic/Psychiatric: normal mood/affect, oriented x 3 Skin: normal color, warm/dry, no rash (Bala Katz MD) right upper abdomen pain present but not severe Review of Systems: Constitutional: No fever Respiratory: No shortness of breath Cardiovascular: No chest pain Physical Exam: General Appearance: no apparent distress Respiratory/Chest: lungs clear, no respiratory distress Cardiovascular: regular rate, rhythm Abdomen / GI: normal bowel sounds, soft, + pertinent finding (? RUQ pain) Neurologic/Psychiatric: alert, oriented x 3 Skin: warm/dry (Charis Camarena M.D.) Hospital Course 31M p/w RUQ pain and a 4 day history of vomiting. Labs were significant for a bilirubin of 4.7 (direct of 0.9). Pt also had a UTI that is being treated with Cipro. Abdo US, HIDA and MRCP was normal (although no EF was measured). Abdominal US did not visualize a renal calculi that was seen previously. We were treating as PUD on Monday and Monday with Pepsid and PPI IV pushes and NPO to see if that relieves the pain. Patient went for an upper endoscopy which showed mild esophagitis and it was suggested that the patient continue a PPI as an outpatient RUQ Abdominal Pain 2/2 GI Pathology vs * Renal and gallbladder US both WNL. * HIDA ordered and showed delayed emptying at sphincter but the EF was not measured. * Total bilirubin downtrending from 4.7 to 2.9 and 1.6 on discharge * GI Recs - * Hepatitis neg, mono neg, ARNOLDO, ASMA,AMA, CMV, rest of EBV pending at discharge * EGD showed esophagitis, will be discharged on pantoprazole * TSH and Morning Cortisol within normal limit * Patient will get CMP with PCP on monday- this week. AST, ALT slightly elevated on discharge Anemia * FOBT negative. * c/w Folate. UTI * Afebrile, pt has no urinary symptoms, no elevated WBC. * UA was positive for infection, * Cultures have shown Coag Negative Staph, resistant to Bactrim, sensitive to Oxacillin (pt is allergic), Tetracycline, Vanco and Dapto. * c/w Cipro 400mg BID IV , Day #5 * discharged with 2 more days of cipro PO to finish 7 day course HTN * Holding the Verapamil because it can cause gastritis. * c/w HCTZ 25mg daily on discharge Asthma * Continue Advair BID and Albuterol prn PTSD/Bipolar/ADHD * Continue Amitriptyline 25mg daily. DVT: Hep SQ TID Total Time Spent: Less than 30 minutes This includes examination of the patient, discharge planning, medication reconciliation, and communication with other providers. (Bala Katz MD) Resident Physician Supervision Note: I independently interviewed and examined the patient and verified the barcenas history and physical, reviewed labs and image studies, discussed the case with the resident Dr. Katz and agree with the findings and care plan. Further evaluation of hyperbilirubinemia as outpatient. Bilirubin better on discharge. Tip has h/o pain medicine seeking behavior - In past admission he was admitted for flank pain. He cutting his finger and putting the blood in urine. Total Time Spent: Greater than 30 minutes (35) (Charis Camarena M.D.) Discharge Instructions Please refer to the electronic Patient Visit Report (Discharge Instructions) for additional information. (Bala Katz MD) Additional Copies To Noemy Lombardi DO
[2016-12-20 10:16] LABS: EBV EARLY ANTIGEN AB < 9.00 U/ML; EPSTEIN BARR VIR CAPSID IGG >750.00 U/ML
[2016-12-21 09:41] LABS: COD UR NEGATIVE NG/ML (CUTOFF=50); HYDROCOD UR NEGATIVE NG/ML (CUTOFF=50); HYDROMOR UR NEGATIVE NG/ML (CUTOFF=50); MORPHINE UR 5160 NG/ML (CUTOFF=50); NORHYDROCODONE CONF UR NEGATIVE NG/ML (CUTOFF=50); OXYMORPH UR NEGATIVE NG/ML (CUTOFF=50)
== END 2016-12-19 17:05 | disposition home or self-care (01) | DRG 392 ==
LOC: C.EDB 12:25 → C.MS4W 17:15 → ENRESERV 17:26
PROVIDERS: ADMIT Family Medicine; ATTEND Family Medicine
PROC: 0DB48ZX Excision of Esophagogastric Junction, Via Natural or Artificial Opening Endoscopic, Diagnostic (ICD-10-PCS; principal; 2016-12-19 14:39)
PROC: 0DB68ZX Excision of Stomach, Via Natural or Artificial Opening Endoscopic, Diagnostic (ICD-10-PCS; principal; 2016-12-19 14:39)
PROC: 0DB38ZX Excision of Lower Esophagus, Via Natural or Artificial Opening Endoscopic, Diagnostic (ICD-10-PCS; principal; 2016-12-19 14:39)
DX: K21.0 Gastro-esophageal reflux disease with esophagitis (principal); N39.0 Urinary tract infection, site not specified; R11.10 Vomiting, unspecified; R10.11 Right upper quadrant pain; D50.9 Iron deficiency anemia, unspecified; F43.10 Post-traumatic stress disorder, unspecified; I10 Essential (primary) hypertension; F90.9 Attention-deficit hyperactivity disorder, unspecified type; F31.9 Bipolar disorder, unspecified; J45.909 Unspecified asthma, uncomplicated; Z79.899 Other long term (current) drug therapy; F17.200 Nicotine dependence, unspecified, uncomplicated

== ENCOUNTER → 2016-12-26 | Outpatient (CLI) | payer OTHER ==
[~2016-12-26] MED LIST changes: +AMIT25TA9 PO; +FLV1 PO; +HYDR25TA5 PO; +PANT40TA PO
[2016-12-26 13:34] LABS: ALKALINE PHOSPHATASE 113 U/L (45-117); ALT/SGPT 48 U/L (12-78); AST/SGOT 41 U/L (15-37); BLOOD UREA NITROGEN 10 mg/dl (7-18); BUN/CREATININE RATIO 9.4 (10-20); CALCIUM 8.9 mg/dl (8.5-10.1); CARBON DIOXIDE 27 mmol/L (21-32); CHLORIDE 103 mmol/L (98-107); CREATININE 1.07 mg/dl (0.60-1.40); GLUCOSE 112 mg/dl (70-99); MAGNESIUM 2.1 mg/dl (1.8-2.4); POTASSIUM 3.5 mmol/L (3.5-5.1); SODIUM 139 mmol/L (136-145)
[2016-12-26 13:36] LABS: ALB/GLOB RATIO 0.9 (0.9-2)
== END | disposition home or self-care (01) ==
LOC: C.LABPBG 09:53
PROVIDERS: ATTEND Family Medicine
DX: I10 Essential (primary) hypertension (principal); R74.8 Abnormal levels of other serum enzymes; E87.6 Hypokalemia

== ENCOUNTER → 2017-01-26 | Outpatient (CLI) | payer OTHER ==
[~2017-01-26] MED LIST changes: +CLN150 PO; +CYCL10TA6 PO; +HYDR-5688 PO; +LISI-461 PO; +PRED10TA PO
[2017-01-26 12:59] LABS: ALT/SGPT 67 U/L (12-78); BLOOD UREA NITROGEN 12 mg/dl (7-18); BUN/CREATININE RATIO 9.7 (10-20); CARBON DIOXIDE 28 mmol/L (21-32); CHLORIDE 93 mmol/L (98-107); CREATININE 1.28 mg/dl (0.60-1.40); GLUCOSE 117 mg/dl (70-99); MAGNESIUM 1.8 mg/dl (1.8-2.4); POTASSIUM 3.6 mmol/L (3.5-5.1); SODIUM 133 mmol/L (136-145)
[2017-01-26 13:02] LABS: ALB/GLOB RATIO 1.1 (0.9-2); ALKALINE PHOSPHATASE 120 U/L (45-117); AST/SGOT 95 U/L (15-37)
== END | disposition home or self-care (01) ==
LOC: C.LABPBG 10:26
PROVIDERS: ATTEND Family Medicine
DX: R11.2 Nausea with vomiting, unspecified (principal)

== ENCOUNTER 2017-01-28 11:38 | Emergency (ER) | payer OTHER ==
[~2017-01-28] VITALS: Ht 185.4 cm; Wt 102.4 kg
[~2017-01-28 11:38] MED LIST changes: -CLN150 PO; -CYCL10TA6 PO; -HYDR-5688 PO; -LISI-461 PO; -PRED10TA PO
[2017-01-28 11:41] VITALS: TEMP 37.2; Ht 185.4 cm; Wt 102.4 kg
[2017-01-28] MEDS ORDERED: CYCLOBENZAPRINE HCL 10 MG TAB PO STA (12:29)
[2017-01-28] MEDS ORDERED: ONDANSETRON 4MG OD TAB PO STA (12:29)
[2017-01-28] MEDS ORDERED: HYDROmorphone INJ 1 MG/ML SYR IM STA (12:29)
--- NOTE | 2017-01-28 12:29 | EMERGENCY ROOM VISIT NOTE ---
History Report prepared by Luz: iWll Arboleda Under the Supervision of: Dr. Radha Lira M.D. First contact with patient: 12:06 Chief Complaint: BACK PAIN Stated Complaint: NUMBESS IN LEGS,SEVERE BACK PAIN Nursing Triage Summary: pt reports his legs were numb has hx of broke l4-l5 4-5 years ago. no incontinence. fell this am nerves in spinal cord are being pinch. was admitted 1 month ago and had those findings History of Present Illness The patient is a 31 year old male who presents to the Emergency Room with complaints of constant back pain beginning today. The patient states that he fell 17 feet four years ago, and was diagnosed with a concussion, brain bleed, and a broken back. He notes that he was admitted a month ago, and told that the nerves in his spinal cord were being squeezed from when he broke his back. He reports that his pain is worse along his lower back around his spine. The patient states that his legs began to feel numb this morning, mostly in his left leg. He notes that he is unable to walk, and fell on the way to the bathroom this morning. He also complains of vomiting, but reports that he has not lost control of his bowels and bladder. The patient states that he has been experiencing pain for months, but notes that the pain and the addition of the leg numbness prompted him to come to the emergency department. He rates his pain as a 10/10. Source of History: patient Onset: this morning Position: back Symptom Intensity: 10/10 Timing: constant Associated Symptoms: + vomiting, + numbness (legs) Note: He denies losing control of his bowels and bladder. Review of Systems See HPI for pertinent positives & negatives. A total of 10 systems reviewed and were otherwise negative. Past Medical & Surgical Medical Problems: (1) Abdominal pain (2) Asthma (3) Bilateral flank pain (4) Brain bleed (5) Broken back (6) Malingerer (7) Postconcussive syndrome (8) PTSD (post-traumatic stress disorder) Social History Problems: (1) Drug-seeking behavior Family History Asthma Cancer Diabetes mellitus FH: heart disease FHx: lung disease Hypertension Kidney disease Kidney stones Stroke Social History Smoking Status: Never Smoker Drug Use: none Marital Status: single Housing Status: lives with family Occupation Status: unemployed Current/Historical Medications Scheduled Albuterol Hfa (Ventolin Hfa), 2-4 PUFFS INH BID Albuterol Sulf (Proventil 0.083% 2.5MG/3ML), 2.5 MG INH PRN Amitriptyline Hcl (Elavil), 50 MG PO HS Fluticasone Prop/Salmeterol (Advair Diskus 250/50 60 Dose), 2 PUFF INH BID Folic Acid (Folic Acid), 1 MG PO QAM Lisinopril (Lisinopril), 10 MG PO DAILY Pantoprazole (Protonix), 40 MG PO DAILY Prednisone (Prednisone), 10 MG PO DIRECTED Sulindac (Sulindac), 150 MG PO BID Scheduled PRN Cyclobenzaprine Hcl (Flexeril), 10 MG PO TID PRN for Muscle Spasms Hydrocodone/Acetaminophen 5MG/325MG ([place] 5MG/325MG), 1 TABLET PO Q6 PRN for Pain Allergies Coded Allergies: Penicillins (Verified Allergy, Intermediate, ITCHY BLOTCHES, 01/28/17) Naproxen (Unverified Allergy, Unknown, ITCHY, 01/28/17) Red Dye (Verified Allergy, Unknown, HIVES, 01/28/17) Physical Exam Vital Signs Date Time Temp Pulse Resp B/P (MAP) Pulse Ox O2 Delivery O2 Flow Rate FiO2 01/28/17 15:32 102 20 105/68 97 01/28/17 14:53 101 20 96/64 95 Room Air 01/28/17 13:21 124 16 101/71 96 Room Air 01/28/17 11:41 37.2 145 22 110/72 96 Room Air Physical Exam Vital signs reviewed. General: Well-appearing 31 year old male, in no significant distress. HEENT: No scleral icterus, PERRLA, neck supple. Atraumatic. Cardiovascular: Regular rate and rhythm, no extra sounds. Pulmonary: Clear to auscultation bilaterally, normal work of breathing. Abdomen: Soft, nontender, nondistended, positive bowel sounds. Musculoskeletal: Atraumatic, no peripheral edema. Tender along lumbar spine diffusely with no swelling, stepoff, or deformity, some lumbar perispinal tenderness. Negative straight leg raise bilaterally. Neurologic: Patient awake alert and oriented x 3, full strength in all 4 extremities. Cranial nerves 2 through 12 grossly intact. Skin: Warm, dry, no rash Medical Decision & Procedures ER Provider Diagnostic Interpretation: Radiology results as stated below per my review and radiologist interpretation: LUMBAR SPINE CT FINDINGS: Hepatic steatosis. Bilateral nephrolithiasis. No hydronephrosis. Paraspinal soft tissues are unremarkable. No acute fracture or subluxation within the lumbar spine. No significant central canal or neural foraminal narrowing by CT technique. Bilateral L3 spondylolysis. IMPRESSION: 1. No acute fractures within the lumbar spine. 2. Bilateral L3 spondylolysis. No spondylolisthesis. 3. Bilateral nephrolithiasis. No hydronephrosis. Electronically signed by: Edwin Nails M.D. 01/28/2017 1:16 PM Medications Administered Medications (Trade) Dose Ordered Sig/Reena Route Start Time Stop Time Status Last Admin Dose Admin Cyclobenzaprine HCl (Flexeril Tab) 10 mg NOW STAT PO 01/28/17 12:29 01/28/17 12:33 DC 01/28/17 12:54 10 MG Hydromorphone HCl (Dilaudid Inj) 1 mg NOW STAT IM 01/28/17 12:29 01/28/17 12:33 DC 01/28/17 12:55 1 MG Ondansetron HCl (Zofran Odt) 4 mg NOW STAT PO 01/28/17 12:29 01/28/17 12:33 DC 01/28/17 12:55 4 MG Methylprednisolone Sodium Succinate (Solu-Medrol IV) 125 mg NOW STAT IM 01/28/17 14:31 01/28/17 14:32 DC 01/28/17 14:53 125 MG ED Course 1219: Past medical records reviewed. The patient was evaluated in room A11. A complete history and physical examination was performed. 1229: Zofran Odt 4mg PO, Dilaudid Inj 1mg IM, Flexeril Tab 10mg PO 1431: Solu-Medrol IV 125mg IM 1449: I reevaluated and updated the patient. 1511: Upon reevaluation, the patient appeared to have improvement of his symptoms. I discussed findings with him. He verbalized agreement of the treatment plan. The patient was discharged home. Medical Decision Differential diagnosis: Etiologies such as musculoskeletal, disc herniation, fracture, aortic disease, metastatic disease, cord compression, discitis, infection, renal colic, gastrointestinal, acute exacerbation of chronic back pain, sciatica, cauda equina, as well as others were entertained. This patient was evaluated and appeared to be in some discomfort. Patient was given Dilaudid 1 mg IM, Flexeril 10 mg and Zofran [address] orally initially. [address] scan of the lumbar spine was performed and is read as above. There is no significant acute fracture or malalignment appreciated. The patient has not shown any signs of cauda equina. Patient was reevaluated was feeling improved. He was given Solu-Medrol 125 mg IM. Patient will be discharged with [place] to be used as needed and Flexeril to be used as needed. He was given a short prescription of each medication. The patient will follow-up with his PCP this week and return to the ER for worsening of symptoms or any medical concerns. Medication Reconcilliation Current Medication List: was personally reviewed by me Blood Pressure Screening Patient's blood pressure: Low blood pressure Blood pressure disposition: Elevated BP felt to be situational Impression Primary Impression: Lumbar back pain Scribe Attestation The scribe's documentation has been prepared under my direction and personally reviewed by me in its entirety. I confirm that the note above accurately reflects all work, treatment, procedures, and medical decision making performed by me. Departure Information Dispostion Home / Self-Care Prescriptions Hydrocodone/Acetaminophen 5MG/325MG ([place] 5MG/325MG) Tab 1 TABLET PO Q6 Y for Pain, #10 TAB Prov: Radha Lira M.D. 01/28/17 Prednisone (Prednisone) 10 Mg Tab 10 MG PO DIRECTED, #31 TAB Prov: Radha Lira M.D. 01/28/17 Cyclobenzaprine Hcl (FLEXERIL) 10 Mg Tab 10 MG PO TID Y for Muscle Spasms, #15 TAB Prov: Radha Lira M.D. 01/28/17 Referrals Noemy Lombardi DO (PCP) Forms HOME CARE DOCUMENTATION FORM, IMPORTANT VISIT INFORMATION Patient Instructions My [facility] Additional Instructions Diagnosis: Lumbar back pain Prednisone 40 mg daily for 4 days, 30 mg daily for 3 days, 20 mg daily for 2 days, 10 mg daily for 2 days Flexeril 10 mg every 8 hours as needed for muscular spasm. [place] one tablet every 6 hours as needed for severe pain. Do not drive or take Tylenol with this medication. Warm compresses and gentle stretching for relief of your pain. Follow-up with Dr. Lombardi this week for reevaluation. Return to the ER for worsening of symptoms or any medical concerns.
[2017-01-28] MEDS ORDERED: LISI-461 PO (12:44)
[2017-01-28] MEDS ORDERED: AMIT25TA9 PO (12:44)
[2017-01-28] MEDS ORDERED: CLN150 PO (12:44)
--- NOTE | 2017-01-28 13:17 | DIAGNOSTIC IMAGING REPORT ---
LUMBAR SPINE CT CT DOSE: 804.60 mGy.cm HISTORY: Lumbar radiculopathy TECHNIQUE: Multiaxial CT images of the lumbar spine were performed and reformatted in the sagittal and coronal plane without the use of contrast. A dose lowering technique was utilized adhering to the principles of ALARA. COMPARISON: Lumbar spine 01/05/2017. FINDINGS: Hepatic steatosis. Bilateral nephrolithiasis. No hydronephrosis. Paraspinal soft tissues are unremarkable. No acute fracture or subluxation within the lumbar spine. No significant central canal or neural foraminal narrowing by CT technique. Bilateral L3 spondylolysis. IMPRESSION: 1. No acute fractures within the lumbar spine. 2. Bilateral L3 spondylolysis. No spondylolisthesis. 3. Bilateral nephrolithiasis. No hydronephrosis. Electronically signed by: Edwin Nails M.D. 01/28/2017 1:16 PM Dictated Date/Time: 01/28/2017 1:10 PM
[2017-01-28] MEDS ORDERED: METHYLPREDNISOLONE 125 MG VIAL IM STA (14:31)
[2017-01-28] MEDS ORDERED: PRED10TA PO (15:09)
[2017-01-28] MEDS ORDERED: HYDR-5688 PO (15:09)
[2017-01-28] MEDS ORDERED: CYCL10TA6 PO (15:09)
[2017-01-28 15:32] VITALS: BP 105/68; PULSE 102; O2SAT 97
== END 2017-01-28 15:34 | disposition home or self-care (01) ==
LOC: C.EDB 11:38 → C.EDA 15:34
DX: M54.5 Low back pain (principal); M47.896 Other spondylosis, lumbar region; J45.909 Unspecified asthma, uncomplicated; Z79.51 Long term (current) use of inhaled steroids; Z82.5 Family history of asthma and other chronic lower respiratory diseases; Z80.9 Family history of malignant neoplasm, unspecified; Z83.3 Family history of diabetes mellitus; Z82.49 Family history of ischemic heart disease and other diseases of the circulatory system; Z84.1 Family history of disorders of kidney and ureter; Z82.3 Family history of stroke

== ENCOUNTER 2017-03-08 16:45 | Inpatient (IN) | payer OTHER ==
[~2017-03-08] VITALS: Ht 185.4 cm; Wt 101.5 kg
[~2017-03-08 16:45] MED LIST changes: +CLN150 PO; +HYDR-5688 PO; -HYDR25TA5 PO; +LISI-461 PO; +PRED10TA PO
--- NOTE | 2017-03-08 17:12 | EMERGENCY ROOM VISIT NOTE ---
History Report prepared by Scribe: Barbara Moran Under the Supervision of: Dr. Charles Granados M.D. 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 He believes he has been vomiting up to 10 times a day. Positive headache, back pain, abdominal pain, rash on chest and abdomen. He states the rash started on February 19 after eating blue cheese , and admits to a "dairy allergy". Negative fevers, urinary symptoms. The patient denies any recent travel, bug bites, hunting, camping, hiking or drinking from a stream or well. 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 He denies any ETOH use, drug use or drug allergies. The patient denies any recent loss of bowel or bladder function. He notes he did become dizzy approximately 1 week ago and fell, but denies any LOC. 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 A total of ten systems were reviewed and were otherwise negative. Past Medical & Surgical Medical Problems: (1) Abdominal pain (2) Asthma (3) Bilateral flank pain (4) Brain bleed (5) Broken back (6) Malingerer (7) Postconcussive syndrome (8) PTSD (post-traumatic stress disorder) Social History Problems: (1) Drug-seeking behavior Family History Asthma Cancer Diabetes mellitus FH: heart disease FHx: lung disease Hypertension Kidney disease Kidney stones Stroke Social History Smoking Status: Never Smoker Alcohol Use: none Drug Use: none Marital Status: single Housing Status: lives with family Occupation Status: unemployed Current/Historical Medications Scheduled Albuterol Hfa (Ventolin Hfa), 2-4 PUFFS INH BID Albuterol Sulf (Proventil 0.083% 2.5MG/3ML), 2.5 MG INH PRN Amitriptyline Hcl (Elavil), 50 MG PO HS Fluticasone Prop/Salmeterol (Advair Diskus 250/50 60 Dose), 2 PUFF INH BID Folic Acid (Folic Acid), 1 MG PO QAM Lisinopril (Lisinopril), 10 MG PO DAILY Pantoprazole (Protonix), 40 MG PO DAILY Allergies Coded Allergies: Penicillins (Verified Allergy, Intermediate, ITCHY BLOTCHES, 01/28/17) Naproxen (Unverified Allergy, Unknown, ITCHY, 01/28/17) Red Dye (Verified Allergy, Unknown, HIVES, 01/28/17) Physical Exam Vital Signs Date Time Temp Pulse Resp B/P (MAP) Pulse Ox O2 Delivery O2 Flow Rate FiO2 03/08/17 20:30 102/68 03/08/17 20:24 117 20 122/72 96 Nasal Cannula 2.0 03/08/17 20:22 122/72 03/08/17 20:00 112 14 136/75 97 03/08/17 19:49 101/73 03/08/17 19:00 119 20 129/68 96 03/08/17 18:00 119 20 90/62 95 Room Air 03/08/17 17:45 128 20 93 03/08/17 17:42 110/78 03/08/17 17:13 126 03/08/17 17:00 98/84 03/08/17 16:55 36.9 128 20 110/74 Room Air Physical Exam GENERAL: Awake, alert, well-appearing, NAD HENT: Normocephalic, atraumatic. EYES: Normal conjunctiva. Scleral icterus NECK: Supple. No nuchal rigidity. FROM. No signs of meningismus. RESPIRATORY: CTAB, no rhonchi, wheezing, crackles CARDIAC: Tachycardic and regular, no MRG ABDOMEN: Soft, RUQ TTP, ND, BS+, negative obturator's, negative psoas. MSK: Mild reproducible midline low back pain. No chest wall TTP, no LE edema, NVI distally, no saddle anesthesia, negative straight leg raise bilaterally. NEURO: GCS 15, CN 2-12 intact, moves all 4s on command SKIN: No rash or jaundice noted. Medical Decision & Procedures ER Provider Diagnostic Interpretation: Radiology results as stated below per my review and radiologist interpretation: ABDOMINAL ULTRASOUND, RIGHT UPPER QUADRANT HISTORY: Right upper quadrant pain. Jaundice.. COMPARISON: Abdomen and pelvis CT 12/17/2016. FINDINGS: Pancreas: The pancreatic head is obscured by overlying bowel gas. The remaining portions of the pancreas are within normal limits. Liver: The liver is echogenic consistent with fatty change. The liver is enlarged measuring 25 cm in length. Gallbladder: No gallbladder wall thickening. No gallstones. Gallbladder sludge. CBD: 6 mm. Right kidney: No hydronephrosis. IMPRESSION: 1. No gallbladder wall thickening. No gallstones. Gallbladder sludge is present. 2. Hepatomegaly demonstrating fatty change. Electronically signed by: Edwin Nails M.D. 03/08/2017 7:49 PM CHEST ONE VIEW PORTABLE HISTORY: Generalized abdominal pain. COMPARISON: Chest 11/30/2016. FINDINGS: There are low lung findings with mild elevation of the right hemidiaphragm. The heart is normal in size. Retrocardiac lucency consistent with a moderate hiatus hernia. The lungs are clear. No pleural effusions. No pneumothorax. IMPRESSION: 1. No acute process within the chest. 2. Moderate hiatus hernia. 3. Low lung volumes with mild elevation of the right hemidiaphragm. Electronically signed by: Edwin Nails M.D. 03/08/2017 6:14 PM Laboratory Results 03/08/17 17:09 Red Blood Count 4.59, Mean Corpuscular Volume 85.8, Mean Corpuscular Hemoglobin 28.8, Mean Corpuscular Hemoglobin Concent 33.5, Mean Platelet Volume 10.9, Neutrophils (%) (Auto) 61.4, Lymphocytes (%) (Auto) 27.1, Monocytes (%) (Auto) 7.8, Eosinophils (%) (Auto) 0.1, Basophils (%) (Auto) 0.7, Neutrophils # (Auto) 4.27, Lymphocytes # (Auto) 1.88, Monocytes # (Auto) 0.54, Eosinophils # (Auto) 0.01, Basophils # (Auto) 0.05 03/08/17 17:09 Test 03/08/17 17:09 03/08/17 17:18 03/08/17 18:01 03/08/17 20:20 White Blood Count 6.95 K/uL (4.8-10.8) Red Blood Count 4.59 M/uL (4.7-6.1) Hemoglobin 13.2 g/dL (14.0-18.0) Hematocrit 39.4 % (42-52) Mean Corpuscular Volume 85.8 fL (80-100) Mean Corpuscular Hemoglobin 28.8 pg (25-34) Mean Corpuscular Hemoglobin Concent 33.5 g/dl (32-36) Platelet Count 180 K/uL (130-400) Mean Platelet Volume 10.9 fL (7.4-10.4) Neutrophils (%) (Auto) 61.4 % Lymphocytes (%) (Auto) 27.1 % Monocytes (%) (Auto) 7.8 % Eosinophils (%) (Auto) 0.1 % Basophils (%) (Auto) 0.7 % Neutrophils # (Auto) 4.27 K/uL (1.4-6.5) Lymphocytes # (Auto) 1.88 K/uL (1.2-3.4) Monocytes # (Auto) 0.54 K/uL (0.11-0.59) Eosinophils # (Auto) 0.01 K/uL (0-0.5) Basophils # (Auto) 0.05 K/uL (0-0.2) RDW Standard Deviation 58.9 fL (36.4-46.3) RDW Coefficient of Variation 19.2 % (11.5-14.5) Immature Granulocyte % (Auto) 2.9 % Immature Granulocyte # (Auto) 0.20 K/uL (0.00-0.02) Anion Gap 15.0 mmol/L (3-11) Est Creatinine Clear Calc Drug Dose 56.4 ml/min Estimated GFR () 41.2 Estimated GFR (Non- 35.5 BUN/Creatinine Ratio 4.7 (10-20) Calcium Level 8.7 mg/dl (8.5-10.1) Phosphorus Level 2.6 mg/dl (2.5-4.9) Magnesium Level 1.6 mg/dl (1.8-2.4) Total Bilirubin 7.5 mg/dl (0.2-1) Direct Bilirubin 5.5 mg/dl (0-0.2) Aspartate Amino Transf (AST/SGOT) 351 U/L (15-37) Alanine Aminotransferase (ALT/SGPT) 192 U/L (12-78) Alkaline Phosphatase 182 U/L (45-117) Total Protein 7.0 gm/dl (6.4-8.2) Albumin 3.3 gm/dl (3.4-5.0) Lipase 894 U/L (73-393) Bedside Lactic Acid Venous 3.48 mmol/L (0.90-1.70) Venous Blood pH 7.42 (7.36-7.41) Venous Blood Partial Pressure CO2 41 mmHg (38.0-50.0) Venous Blood Partial Pressure O2 64 mmHg Venous Blood HCO3 26 mmol/L Venous Blood Oxygen Saturation 90.2 % Venous Blood Base Excess 1.1 mEq/L Urine Color DK YELLOW Urine Appearance TURBID (CLEAR) Urine pH 5.0 (4.5-7.5) Urine Specific [place] 1.025 (1.000-1.030) Urine Protein 2+ (NEG) Urine Glucose (UA) NEG (NEG) Urine Ketones TRACE (NEG) Urine Occult Blood 2+ (NEG) Urine Nitrite POS (NEG) Urine Bilirubin 3+ (NEG) Urine Urobilinogen POS (NEG) Urine Leukocyte Esterase MODERATE (NEG) Urine WBC (Auto) >30 /hpf (0-5) Urine RBC (Auto) 10-30 /hpf (0-4) Urine Hyaline Casts (Auto) >30 /lpf (0-5) Urine Epithelial Cells (Auto) >30 /lpf (0-5) Urine Bacteria (Auto) NEG (NEG) Urine Crystals AMORPHOUS SEDIMENT (NONE Urine Pathogenic Casts See comments /lpf (0) Urine Yeast (Auto) (NONE PRSENT) Laboratory results reviewed by me Medications Administered Medications (Trade) Dose Ordered Sig/Reena Route Start Time Stop Time Status Last Admin Dose Admin Sodium Chloride 1,000 ml @ 999 mls/hr Q1H1M STAT IV 03/08/17 17:15 03/08/17 18:15 DC 03/08/17 18:02 999 MLS/HR Ondansetron HCl (Zofran Inj) 4 mg NOW STAT IV 03/08/17 17:15 03/08/17 17:17 DC 03/08/17 18:01 4 MG Sodium Chloride 1,000 ml @ 999 mls/hr Q1H1M STAT IV 03/08/17 17:15 03/08/17 18:15 DC 03/08/17 18:03 999 MLS/HR Cefepime HCl 2000 mg/Dextrose 112.5 ml @ 200 mls/hr ONE STAT IV 03/08/17 17:38 03/08/17 18:11 DC 03/08/17 18:19 200 MLS/HR Metronidazole (Flagyl / Nss) 500 mg NOW STAT IV 03/08/17 17:38 03/08/17 17:41 DC 03/08/17 18:01 500 MG Hydromorphone HCl (Dilaudid Inj) 1 mg NOW STAT IV 03/08/17 17:57 03/08/17 17:58 DC 03/08/17 18:10 1 MG Fentanyl Citrate (Fentanyl Inj) 100 mcg STK-MED ONCE .ROUTE 03/08/17 19:54 03/08/17 19:55 DC 03/08/17 19:58 50 MCG Sodium Chloride 1,000 ml @ 999 mls/hr Q1H1M STAT IV 03/08/17 20:06 03/08/17 21:06 DC 03/08/17 20:06 999 MLS/HR Hydromorphone HCl (Dilaudid Inj) 0.5 mg STK-MED ONCE .ROUTE 03/08/17 20:29 03/08/17 20:30 DC 03/08/17 20:42 0.5 MG ECG Indication: vomiting Rate (beats per minute): 115 Rhythm: sinus tachycardia Findings: T-wave inversion (T-wave flattening in lead 3), other (Prolonged QT) Comparison ECG Date: No other STS or TWI Change: Patient's electrocardiogram interpreted by me. ED Course 170: The patient was evaluated in room B5. A complete history and physical exam was performed. 1849: I reevaluated the patient. He is still in pain but feeling a little better. 2014: I reevaluated the patient. I discussed his results and my recommendation he remain in the hospital for further evaluation and management and he verbalized complete understanding and agreement. 2011: I discussed the patients case with Dr. Live, [facility] Hospitalist. The patient will be further evaluated. 2038: I discussed the patients case with [facility]. She recommends an MRCP tomorrow. 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 Triage Nursing notes reviewed. The patient's presentation and history were concerning for vomiting. Differential diagnosis: Etiologies such as gastroenteritis, food borne illness, infections, appendicitis , diverticulitis, inflammatory bowel disease, obstruction, GI bleed, biliary pathology, as well as others were entertained. Patient was seen and evaluated at the bedside. Patient had been complaining some right upper quadrant pain as well as some low back pain. Patient did have blood work completed along with EKG, and given pain medications IVF and BS abx to cover for abdominal iris. Patient does have normal white blood cell count. Patient showed a fairly normal hemoglobin. Patient did have elevations in his LFTs and T bili. Patient did have a right upper quadrant ultrasound which did show some gallbladder sludge but without any CBD dilatation or gallbladder wall thickness or pericholecystic fluid. Patient did have some acute renal failure. Creatinine of 2.1. Patient still making urine. Patient did have a urinalysis which doesn't show any acute infection. Patient did have a CT noncontrast of the abdomen pelvis given the patient's acute renal failure. This did show a possible lesion in the liver. I did speak with the on-call secret service agent recommended MRCP tomorrow for further evaluation. We also did add an alcohol. Patient's alcohol was normal. I did speak with the primary team going to further evaluate and treat the patient. Patient's UA was crushable for UTIs patient did have multiple findings concerning for possible UTI but without any urine bacteria. The patient's presentation metabolic should cover for this and is pending a urine culture. Of note the patient also did have blood cultures pending. Patient was admitted. Medication Reconcilliation Current Medication List: was personally reviewed by me Blood Pressure Screening Patient's blood pressure: Low blood pressure Consults Time Called: 2011 Consulting Physician: Dr. Live [facility] Hospitalist Returned Call: 2011 I discussed the patients case with Dr. Live [facility] Hospitalist. The patient will be further evaluated. Additional Consults: Time Called: 2034 Consulted Physician: [facility] Returned Call: 2038 Additional Comments: I discussed the patients case with [facility]. She recommends an MRCP tomorrow. Impression Primary Impression: Acute renal failure Additional Impressions: Hyperbilirubinemia Elevated liver enzymes UTI (urinary tract infection) Critical Care I have personally spent greater than 60 minutes of critical care time in the direct management of this patient. This includes bedside care, interpretation of diagnostic studies, and testing, discussion with consultants, patient, and family members, and other required patient management activities. This 60 minutes is in excess of all separately billable procedures. Scribe Attestation The scribe's documentation has been prepared under my direction and personally reviewed by me in its entirety. I confirm that the note above accurately reflects all work, treatment, procedures, and medical decision making performed by me. Departure Information Dispostion Being Evaluated By Hospitalist Referrals Noemy Lombardi DO (PCP) Patient Instructions My [facility] Problem Qualifiers Primary Impression: Acute renal failure Acute renal failure type: unspecified Qualified Codes: N17.9 - Acute kidney failure, unspecified Additional Impressions: UTI (urinary tract infection) Urinary tract infection type: site unspecified Hematuria presence: with hematuria Qualified Codes: N39.0 - Urinary tract infection, site not specified ; R31.9 - Hematuria, unspecified
[2017-03-08] MEDS ORDERED: SODIUM CHLORIDE 0.9% 1000ML 1,000 ML IV STA ×3 (17:15→20:06)
[2017-03-08] MEDS ORDERED: ONDANSETRON INJ 2 MG/ML 2 ML VIAL IV STA (17:15)
[2017-03-08 17:27] LABS: BASO % 0.7 %; BASO ABS # 0.05 K/uL (0-0.2); EOS % 0.1 %; EOS ABS # 0.01 K/uL (0-0.5); HEMATOCRIT 39.4 % (42-52); HEMOGLOBIN 13.2 g/dL (14.0-18.0); LYMPH % 27.1 %; LYMPH ABS # 1.88 K/uL (1.2-3.4); MEAN CELL VOLUME 85.8 fL (80-100); MEAN CORPUSCULAR HEMOGLOBIN 28.8 pg (25-34); MEAN CORPUSCULAR HGB CONC 33.5 g/dl (32-36); MEAN PLATELET VOLUME 10.9 fL (7.4-10.4); MONO % 7.8 %; MONO ABS # 0.54 K/uL (0.11-0.59); NEUT % 61.4 %; NEUT ABS # 4.27 K/uL (1.4-6.5); PLATELET COUNT 180 K/uL (130-400); RED CELL DISTRIBUTION WIDTH CV 19.2 % (11.5-14.5); RED CELL DISTRIBUTION WIDTH SD 58.9 fL (36.4-46.3); WHITE BLOOD COUNT 6.95 K/uL (4.8-10.8)
[2017-03-08] MEDS ORDERED: OPTIRAY 320 IV PRN (17:30)
[2017-03-08] MEDS ORDERED: CEFEPIME IV 2,000 MG in DEXTROSE 5% 100ML 100 ML IV STA (17:38)
[2017-03-08] MEDS ORDERED: METRONIDAZOLE 500MG / 100ML NSS IV STA (17:38)
[2017-03-08] MEDS ORDERED: HYDROmorphone INJ 1 MG/ML SYR IV STA (17:57)
--- NOTE | 2017-03-08 18:15 | DIAGNOSTIC IMAGING REPORT ---
CHEST ONE VIEW PORTABLE HISTORY: Generalized abdominal pain. COMPARISON: Chest 11/30/2016. FINDINGS: There are low lung findings with mild elevation of the right hemidiaphragm. The heart is normal in size. Retrocardiac lucency consistent with a moderate hiatus hernia. The lungs are clear. No pleural effusions. No pneumothorax. IMPRESSION: 1. No acute process within the chest. 2. Moderate hiatus hernia. 3. Low lung volumes with mild elevation of the right hemidiaphragm. Electronically signed by: Edwin Nails M.D. 03/08/2017 6:14 PM Dictated Date/Time: 03/08/2017 6:13 PM
[2017-03-08 18:22] LABS: ALBUMIN 3.3 gm/dl (3.4-5.0); CALCIUM 8.7 mg/dl (8.5-10.1); CREATININE 2.31 mg/dl (0.60-1.40); PHOSPHORUS 2.6 mg/dl (2.5-4.9); POTASSIUM 2.8 mmol/L (3.5-5.1)
--- NOTE | 2017-03-08 19:50 | DIAGNOSTIC IMAGING REPORT ---
ABDOMINAL ULTRASOUND, RIGHT UPPER QUADRANT HISTORY: Right upper quadrant pain. Jaundice.. COMPARISON: Abdomen and pelvis CT 12/17/2016. FINDINGS: Pancreas: The pancreatic head is obscured by overlying bowel gas. The remaining portions of the pancreas are within normal limits. Liver: The liver is echogenic consistent with fatty change. The liver is enlarged measuring 25 cm in length. Gallbladder: No gallbladder wall thickening. No gallstones. Gallbladder sludge. CBD: 6 mm. Right kidney: No hydronephrosis. IMPRESSION: 1. No gallbladder wall thickening. No gallstones. Gallbladder sludge is present. 2. Hepatomegaly demonstrating fatty change. Electronically signed by: Edwin Nails M.D. 03/08/2017 7:49 PM Dictated Date/Time: 03/08/2017 7:47 PM
[2017-03-08] MEDS ORDERED: FENTANYL CITRATE INJ 50 MCG/1 ML 2 ML VIAL ONE (19:54)
[2017-03-08] MEDS ORDERED: NURSING VERBAL MED ORDER ONE ×2 (20:00→20:30)
[2017-03-08] MEDS ORDERED: HYDROmorphone INJ 0.5 MG/0.5 ML SYR ONE (20:29)
[2017-03-08] MEDS ORDERED: ZOLPIDEM TARTRATE 5 MG TAB PO PRN (20:45)
[2017-03-08] MEDS ORDERED: ONDANSETRON INJ 2 MG/ML 2 ML VIAL IV PRN (20:45)
[2017-03-08] MEDS ORDERED: ALBUTEROL HFA 8 GM INHALER INH PRN (20:45)
--- NOTE | 2017-03-08 21:00 | History and Physical ---
History & Physical Date & Time of Service: Mar 08, 2017 at 20:42 Chief Complaint: Nausea, Vomiting, Back Pain Primary Care Physician: Noemy Lombardi DO History of Present Illness Source: patient 32 y/o M Hx HTN, bipolar disease, asthma, low back pain, RUQ pain with LFT abnormalities. Pt was admitted for RUQ pain and elevated LFTs including a Tbili of 4,7 12/23. No etiology was confirmed on extensive workup which included EGD and MRCP. The bilirubin gradually normalized without intervention and the pt was DCd. He presents with recurrence of RUQ pain, nausea and vomiting x 1 week. Initial labs reveal transaminitis and a bilirubin of 7.5 in addition to CHEKO. The pt is visibly jaundice. An US obtained in the ER did not show a dilated CBD or evidence of biliary obstruction. 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 of 17 ft 2012 7) Esophagitis on EGD 12/23 Family History Asthma Cancer Diabetes mellitus FH: heart disease FHx: lung disease Hypertension Kidney disease Kidney stones Stroke Social History Smoking Status: Never Smoker Drug Use: none Marital Status: single Housing status: lives with family Occupational Status: unemployed Allergies Coded Allergies: Penicillins (Verified Allergy, Intermediate, ITCHY BLOTCHES, 01/28/17) Naproxen (Unverified Allergy, Unknown, ITCHY, 01/28/17) Red Dye (Verified Allergy, Unknown, HIVES, 01/28/17) Home Medications Scheduled Albuterol Hfa (Ventolin Hfa), 2-4 PUFFS INH BID Albuterol Sulf (Proventil 0.083% 2.5MG/3ML), 2.5 MG INH PRN Amitriptyline Hcl (Elavil), 50 MG PO HS Fluticasone Prop/Salmeterol (Advair Diskus 250/50 60 Dose), 2 PUFF INH BID Folic Acid (Folic Acid), 1 MG PO QAM Lisinopril (Lisinopril), 10 MG PO DAILY Pantoprazole (Protonix), 40 MG PO DAILY Review of Systems Constitutional: No fever, No chills, No sweats Eyes: No worsening of vision ENT: No hearing loss, No nasal symptoms Respiratory: No cough, No sputum, No wheezing Cardiovascular: No chest pain, No orthopnea, No PND Abdomen: + pain, + nausea, + vomiting Musculoskeletal: + muscle pain (chronic low back pain), No joint pain Genitourinary - Male: No hematuria, No dysuria Neurologic: No memory loss, No paralysis, No weakness Psychiatric: No depression symptoms Endocrine: No fatigue Hematologic / Lymphatic: No abnormal bleeding/bruising Integumentary: No rash Allergic / Immunologic: No environmental allergies Physical Exam Vital Signs Date Time Temp Pulse Resp B/P (MAP) Pulse Ox O2 Delivery O2 Flow Rate FiO2 03/08/17 20:24 117 20 122/72 96 Nasal Cannula 2.0 03/08/17 18:00 119 20 90/62 95 Room Air 03/08/17 17:45 128 20 93 03/08/17 17:42 110/78 03/08/17 17:13 126 03/08/17 17:00 98/84 03/08/17 16:55 36.9 128 20 110/74 Room Air General Appearance: WD/WN, no apparent distress, + pertinent finding (Jaundice) Head: normocephalic, atraumatic Eyes: + pertinent finding (Icterus) ENT: normal ENT inspection, pharynx normal Neck: supple, no JVD Respiratory/Chest: chest non-tender, lungs clear, normal breath sounds Cardiovascular: regular rate, rhythm, no edema, no gallop Abdomen/GI: normal bowel sounds, soft, + pertinent finding (RUQ pain to palpation - no additional findings) Back: normal inspection, no CVA tenderness Extremities/Musculoskelatal: normal inspection, no calf tenderness, normal capillary refill Neurologic/Psych: board certified family physician II-XII nml as tested, no motor/sensory deficits, alert, oriented x 3 Skin: + jaundice Diagnostics Laboratory Results Results Past 24 Hours Test 03/08/17 17:09 03/08/17 17:18 03/08/17 18:01 03/08/17 20:20 Range/Units White Blood Count 6.95 4.8-10.8 K/uL Red Blood Count 4.59 4.7-6.1 M/uL Hemoglobin 13.2 14.0-18.0 g/dL Hematocrit 39.4 42-52 % Mean Corpuscular Volume 85.8 80-100 fL Mean Corpuscular Hemoglobin 28.8 25-34 pg Mean Corpuscular Hemoglobin Concent 33.5 32-36 g/dl Platelet Count 180 130-400 K/uL Mean Platelet Volume 10.9 7.4-10.4 fL Neutrophils (%) (Auto) 61.4 % Lymphocytes (%) (Auto) 27.1 % Monocytes (%) (Auto) 7.8 % Eosinophils (%) (Auto) 0.1 % Basophils (%) (Auto) 0.7 % Neutrophils # (Auto) 4.27 1.4-6.5 K/uL Lymphocytes # (Auto) 1.88 1.2-3.4 K/uL Monocytes # (Auto) 0.54 0.11-0.59 K/uL Eosinophils # (Auto) 0.01 0-0.5 K/uL Basophils # (Auto) 0.05 0-0.2 K/uL RDW Standard Deviation 58.9 36.4-46.3 fL RDW Coefficient of Variation 19.2 11.5-14.5 % Immature Granulocyte % (Auto) 2.9 % Immature Granulocyte # (Auto) 0.20 0.00-0.02 K/uL Sodium Level 135 136-145 mmol/L Potassium Level 2.8 3.5-5.1 mmol/L Chloride Level 98 98-107 mmol/L Carbon Dioxide Level 22 21-32 mmol/L Anion Gap 15.0 3-11 mmol/L Blood Urea Nitrogen 11 7-18 mg/dl Creatinine 2.31 0.60-1.40 mg/dl Est Creatinine Clear Calc Drug Dose 56.4 ml/min Estimated GFR () 41.2 Estimated GFR (Non- 35.5 BUN/Creatinine Ratio 4.7 10-20 Random Glucose 121 70-99 mg/dl Calcium Level 8.7 8.5-10.1 mg/dl Phosphorus Level 2.6 2.5-4.9 mg/dl Magnesium Level 1.6 1.8-2.4 mg/dl Total Bilirubin 7.5 0.2-1 mg/dl Direct Bilirubin 5.5 0-0.2 mg/dl Aspartate Amino Transf (AST/SGOT) 351 15-37 U/L Alanine Aminotransferase (ALT/SGPT) 192 12-78 U/L Alkaline Phosphatase 182 45-117 U/L Total Protein 7.0 6.4-8.2 gm/dl Albumin 3.3 3.4-5.0 gm/dl Lipase 894 73-393 U/L Bedside Lactic Acid Venous 3.48 0.90-1.70 mmol/L Venous Blood pH 7.42 7.36-7.41 Venous Blood Partial Pressure CO2 41 38.0-50.0 mmHg Venous Blood Partial Pressure O2 64 mmHg Venous Blood HCO3 26 mmol/L Venous Blood Oxygen Saturation 90.2 % Venous Blood Base Excess 1.1 mEq/L Microbiology Results 03/08/17 Blood Culture, Received Pending 03/08/17 Blood Culture, Received Pending Diagnostic Radiology Gallbladder US: 1. No gallbladder wall thickening. No gallstones. Gallbladder sludge is present. 2. Hepatomegaly demonstrating fatty change. 3. CBD 6mm Impression Assessment and Plan 32 y/o M Hx HTN, bipolar disease, asthma, low back pain, RUQ pain with LFT abnormalities. Pt was admitted for RUQ pain and elevated LFTs including a Tbili of 4,7 12/23. No etiology was confirmed on extensive workup which included EGD and MRCP. The bilirubin gradually normalized without intervention and the pt was DCd. He presents with recurrence of RUQ pain, nausea and vomiting x 1 week. Initial labs reveal transaminitis and a bilirubin of 7.5 in addition to CHEKO, hypoK, hypoMg. The pt is visibly jaundice. An US obtained in the ER did not show a dilated CBD or evidence of biliary obstruction. 1) Jaundice, RUQ pain - elevated LFTs - We will obtain an additional MRCP and consult GI. He will be kept NPO and aggressively hydrated overnight. Analgesics, antiemetics will provided PRN. LFTs will be trended - there is no current evidence of obstruction on US although labs are consistent with obstructive etiology 2) CHEKO - dehydration - aggressive IVF provided - trend BMP. 3) HypoK, HypoMg - replaced - repeat labs AM 4) Bipolar - cont Amitriptyline 5) Lipase is increased - likely due to vomiting - do not suspect pancreatitis - will trend AM 6) HTN - RANDA held due to CHEKO - resume when corrected Full code - SCDs pending GI eval Total time for this admit including review of labs, meds, imaging - discussion with pt and ER attending - 38 min Level of Care Med/Surg Resuscitation Status FULL RESUSCITATION VTE Prophylaxis VTE Risk Assessment Done? Y/N: Yes Risk Level: Low Given or contraindicated: SCD's
--- NOTE | 2017-03-08 21:07 | DIAGNOSTIC IMAGING REPORT ---
ABDOMEN AND PELVIS CT WITHOUT CONTRAST CT DOSE: 668.92 mGy.cm HISTORY: Right upper quadrant pain. Jaundice. TECHNIQUE: Multiaxial CT images of the abdomen and pelvis were performed without contrast. A dose lowering technique was utilized adhering to the principles of ALARA. COMPARISON STUDY: Abdomen and pelvis CT 12/17/2016. FINDINGS: Groundglass nodular airspace opacities seen within the right middle and lower lobes. This likely represents a pneumonia. Small hiatus hernia. No pneumoperitoneum. No pneumatosis. Bilateral gynecomastia. Mild thickening of the distal esophagus, unchanged. Severe hepatic steatosis. Stable 12 mm hyperdense lesion within the right hepatic lobe. The liver is enlarged. The spleen, adrenal glands, and pancreas are unremarkable. Increased density within the gallbladder lumen likely representing sludge. No gallbladder wall thickening. There are few punctate stones within the kidneys. The kidneys enhance normally. No ureteral stones. No hydronephrosis. The bladder is completely decompressed and not well visualized. No retroperitoneal lymphadenopathy. Prior appendectomy. No bowel wall thickening or obstruction. Minimal fat stranding surrounding the celiac axis, unchanged. This is likely chronic. IMPRESSION: 1. No bowel wall thickening or obstruction. 2. Groundglass nodular densities within the right lung base likely representing a pneumonia. 3. Severe hepatic steatosis and a 12 mm lesion within the right hepatic lobe, unchanged. 4. Greater than expected density within the gallbladder likely representing sludge. No gallbladder wall thickening. 5. Bilateral nephrolithiasis. No ureteral stones. No hydronephrosis. 6. Prior appendectomy. 7. Minimal nonspecific fat stranding surrounding the celiac axis, unchanged. Electronically signed by: Edwin Nails M.D. 03/08/2017 9:06 PM Dictated Date/Time: 03/08/2017 8:44 PM
[2017-03-08] MEDS: AMITRIPTYLINE HCL 50 MG TAB PO SCH (21:18)
[2017-03-08] MEDS: MAGNESIUM SULFATE 1GM / D5W 1 GM in PREMIXED IN D5W 100 ML IV SCH ×2 (21:18→22:32)
[2017-03-08] MEDS: POTASSIUM CHLR 10 MEQ / WTR 10 MEQ in PREMIXED WATER 100 ML IV SCH ×3 (21:19→23:53)
[2017-03-08 22:00] VITALS: BP 120/78; PULSE 109; TEMP 36.8; Ht 185.4 cm; Wt 101.5 kg
[2017-03-08 23:11] VITALS: BP 118/76; PULSE 106; TEMP 36.6; O2SAT 96
[2017-03-08] MEDS: D5NSS + 20MEQ KCL 1,000 ML IV SCH (23:18)
[2017-03-08] MEDS: FLUTICASONE/SALMETEROL 250/50 (ADVAIR) 14 PUFF/1 INHALER INH SCH (23:18)
[2017-03-08] MEDS: MoRPHine SULFATE 4 MG/ML 1 ML CARP\\VIAL IV PRN (23:21)
[2017-03-09 00:06] LABS: INFLUENZA B ANTIGEN Neg for Influ B (NEG)
[2017-03-09] MEDS: POTASSIUM CHLR 10 MEQ / WTR 10 MEQ in PREMIXED WATER 100 ML IV SCH (01:09)
[2017-03-09] MEDS: MoRPHine SULFATE 4 MG/ML 1 ML CARP\\VIAL IV PRN ×5 (03:33→20:00)
[2017-03-09] MEDS: D5NSS + 20MEQ KCL 1,000 ML IV SCH (05:37)
--- NOTE | 2017-03-09 06:48 | DIAGNOSTIC IMAGING REPORT ---
MRCP CLINICAL HISTORY: Abdominal pain, jaundice, nausea, vomiting. COMPARISON STUDY: Noncontrast CT scan dated 03/08/2017 FINDINGS: There is an 11 mm T2 bright lesion within the right hepatic lobe. This remains unchanged in size from the preceding CT scan. There is hepatic steatosis. No gallbladder filling defects are visualized. There is no erosive intra or extrahepatic biliary ductal dilatation. The common bile duct measures 5 mm. No ductal filling defects are visualized. The pancreatic duct appears normal. IMPRESSION: 1. Hepatic steatosis 2. 12 mm T2 bright right lobe hepatic lesion 3. No evidence of ductal dilatation. No ductal filling defects identified. Electronically signed by: Ananda Jones M.D. 03/09/2017 6:47 AM Dictated Date/Time: 03/09/2017 6:43 AM
[2017-03-09 08:07] VITALS: BP 123/84; PULSE 99; TEMP 37.1; O2SAT 100
[2017-03-09 08:10] LABS: HEMATOCRIT 34.5 % (42-52); MEAN CELL VOLUME 89.8 fL (80-100); MEAN CORPUSCULAR HEMOGLOBIN 28.6 pg (25-34); MEAN CORPUSCULAR HGB CONC 31.9 g/dl (32-36); MEAN PLATELET VOLUME 11.4 fL (7.4-10.4); PLATELET COUNT 134 K/uL (130-400); RED CELL DISTRIBUTION WIDTH CV 19.5 % (11.5-14.5); RED CELL DISTRIBUTION WIDTH SD 62.4 fL (36.4-46.3); WHITE BLOOD COUNT 5.99 K/uL (4.8-10.8)
[2017-03-09 08:43] LABS: ALBUMIN 2.9 gm/dl (3.4-5.0); CALCIUM 8.1 mg/dl (8.5-10.1); CREATININE 1.79 mg/dl (0.60-1.40); POTASSIUM 3.2 mmol/L (3.5-5.1)
[2017-03-09 08:48] LABS: TOTAL PROTEIN 6.2 gm/dl (6.4-8.2)
[2017-03-09] MEDS: PANTOprazole SOD 40 MG TAB PO SCH (10:18)
[2017-03-09] MEDS: FLUTICASONE/SALMETEROL 250/50 (ADVAIR) 14 PUFF/1 INHALER INH SCH ×2 (10:18→20:03)
[2017-03-09 15:14] VITALS: BP 135/85; PULSE 105; TEMP 36.9; O2SAT 99
--- NOTE | 2017-03-09 16:42 | Progress Note ---
Subjective Date of Service: Mar 09, 2017. Subjective Pt evaluation today including: conversation w/ patient, physical exam Patient reports having headache which is chronic. And is not worse. Patient also reports having back pain which is also chronic. Patient reports having RUQ abd. pain. This is about the same intensity as it was yesterday. Patient reports having nausea, and vomiting. Patient reports that the vomiting was dark green. Patient denies any fever, chills. Problem List Medical Problems: (1) Acute renal failure Status: Acute (2) Anemia Status: Acute (3) Back pain Status: Acute (4) Bilateral flank pain Status: Acute (5) Biliary obstruction Status: Acute (6) Contusion of foot Status: Acute (7) Elevated bilirubin Status: Acute (8) Flank pain Status: Acute (9) Headache Status: Acute (10) Hematuria Status: Acute (11) Hematuria Status: Acute (12) Hypertension Status: Acute (13) Hypokalemia Status: Acute (14) Hypokalemia Status: Acute (15) Hypomagnesemia Status: Acute (16) Lumbar back pain Status: Acute (17) UTI (urinary tract infection) Status: Acute (18) Vomiting Status: Acute Review of Systems Constitutional: No fever, No chills Eyes: No worsening of vision Respiratory: No cough, No sputum Cardiac: No chest pain, No orthopnea Abdomen: + pain, + nausea, + vomiting Musculoskeletal: No joint pain Neurologic: No memory loss, No paralysis Heme: + abnormal bleeding/bruising Endo: No fatigue Skin: No rash, No itch All Other Systems: Reviewed and Negative Medications Current Inpatient Medications Medications (Trade) Dose Ordered Sig/Reena Route Start Time Stop Time Status Last Admin Dose Admin Ioversol (Optiray 320) 111 ml UD PRN IV 03/08/17 17:30 03/12/17 17:29 Albuterol (Ventolin Hfa Inhaler) 2 puffs Q6H PRN INH 03/08/17 20:45 04/07/17 20:44 Amitriptyline HCl (Elavil Tab) 50 mg HS PO 03/08/17 21:00 04/07/17 20:59 03/09/17 20:03 50 MG Salmeterol Xinafoate/ Fluticasone (Advair Diskus 250/50 Inh) 2 puff BID INH 03/08/17 21:00 04/07/17 20:59 03/10/17 09:31 2 PUFF Folic Acid (Folvite Tab) 1 mg QAM PO 03/09/17 09:00 04/08/17 08:59 03/10/17 09:31 1 MG Pantoprazole Sodium (Protonix Tab) 40 mg DAILY PO 03/09/17 09:00 04/08/17 08:59 03/10/17 09:31 40 MG Zolpidem Tartrate (Ambien Tab) 5 mg HSZ PRN PO 03/08/17 20:45 04/07/17 20:44 Ondansetron HCl (Zofran Inj) 4 mg Q6H PRN IV 03/08/17 20:45 04/07/17 20:44 Morphine Sulfate (MoRPHine SULFATE INJ) 4 mg Q4H PRN IV 03/08/17 22:45 03/22/17 22:44 03/10/17 16:12 4 MG Objective Vital Signs Date Time Temp Pulse Resp B/P (MAP) Pulse Ox O2 Delivery O2 Flow Rate FiO2 03/09/17 15:14 36.9 105 18 135/85 (102) 99 Room Air 03/09/17 08:07 37.1 99 16 123/84 (97) 100 2.0 03/08/17 23:55 Nasal Cannula 2.0 03/08/17 23:11 36.6 106 16 118/76 (90) 96 Nasal Cannula 2.0 03/08/17 22:00 Nasal Cannula 2.0 03/08/17 22:00 36.8 109 16 120/78 Nasal Cannula 2.0 03/08/17 20:30 102/68 03/08/17 20:24 117 20 122/72 96 Nasal Cannula 2.0 03/08/17 20:22 122/72 03/08/17 20:00 112 14 136/75 97 03/08/17 19:49 101/73 03/08/17 19:00 119 20 129/68 96 03/08/17 18:00 119 20 90/62 95 Room Air 03/08/17 17:45 128 20 93 03/08/17 17:42 110/78 03/08/17 17:13 126 03/08/17 17:00 98/84 03/08/17 16:55 36.9 128 20 110/74 Room Air Physical Exam General Appearance: WD/WN, no apparent distress Eyes: EOMI, + abnormal sclerae exam (juandiced) ENT: normal ENT inspection Neck: supple, no adenopathy Respiratory/Chest: chest non-tender, lungs clear, normal breath sounds Cardiovascular: regular rate, rhythm, no edema Abdomen: soft (no rebound), + tenderness (in epigastric and RUQ.) Extremities: normal range of motion Skin: normal color Lymphatic: no adenopathy Laboratory Results Last 24 Hours Test 03/08/17 17:09 03/08/17 17:18 03/08/17 18:01 03/08/17 20:20 White Blood Count 6.95 K/uL Red Blood Count 4.59 M/uL Hemoglobin 13.2 g/dL Hematocrit 39.4 % Mean Corpuscular Volume 85.8 fL Mean Corpuscular Hemoglobin 28.8 pg Mean Corpuscular Hemoglobin Concent 33.5 g/dl Platelet Count 180 K/uL Mean Platelet Volume 10.9 fL Neutrophils (%) (Auto) 61.4 % Lymphocytes (%) (Auto) 27.1 % Monocytes (%) (Auto) 7.8 % Eosinophils (%) (Auto) 0.1 % Basophils (%) (Auto) 0.7 % Neutrophils # (Auto) 4.27 K/uL Lymphocytes # (Auto) 1.88 K/uL Monocytes # (Auto) 0.54 K/uL Eosinophils # (Auto) 0.01 K/uL Basophils # (Auto) 0.05 K/uL RDW Standard Deviation 58.9 fL RDW Coefficient of Variation 19.2 % Immature Granulocyte % (Auto) 2.9 % Immature Granulocyte # (Auto) 0.20 K/uL Sodium Level 135 mmol/L Potassium Level 2.8 mmol/L Chloride Level 98 mmol/L Carbon Dioxide Level 22 mmol/L Anion Gap 15.0 mmol/L Blood Urea Nitrogen 11 mg/dl Creatinine 2.31 mg/dl Est Creatinine Clear Calc Drug Dose 56.4 ml/min Estimated GFR () 41.2 Estimated GFR (Non- 35.5 BUN/Creatinine Ratio 4.7 Random Glucose 121 mg/dl Calcium Level 8.7 mg/dl Phosphorus Level 2.6 mg/dl Magnesium Level 1.6 mg/dl Total Bilirubin 7.5 mg/dl Direct Bilirubin 5.5 mg/dl Aspartate Amino Transf (AST/SGOT) 351 U/L Alanine Aminotransferase (ALT/SGPT) 192 U/L Alkaline Phosphatase 182 U/L Total Protein 7.0 gm/dl Albumin 3.3 gm/dl Lipase 894 U/L Bedside Lactic Acid Venous 3.48 mmol/L Venous Blood pH 7.42 Venous Blood Partial Pressure CO2 41 mmHg Venous Blood Partial Pressure O2 64 mmHg Venous Blood HCO3 26 mmol/L Venous Blood Oxygen Saturation 90.2 % Venous Blood Base Excess 1.1 mEq/L Urine Color DK YELLOW Urine Appearance TURBID Urine pH 5.0 Urine Specific Tyner 1.025 Urine Protein 2+ Urine Glucose (UA) NEG Urine Ketones TRACE Urine Occult Blood 2+ Urine Nitrite POS Urine Bilirubin 3+ Urine Urobilinogen POS Urine Leukocyte Esterase MODERATE Urine WBC (Auto) >30 /hpf Urine RBC (Auto) 10-30 /hpf Urine Hyaline Casts (Auto) >30 /lpf Urine Epithelial Cells (Auto) >30 /lpf Urine Bacteria (Auto) NEG Urine Crystals AMORPHOUS SEDIMENT Urine Pathogenic Casts See comments /lpf Urine Yeast (Auto) Test 03/08/17 21:24 03/08/17 22:26 03/09/17 07:36 Ethyl Alcohol mg/dL < 3.0 mg/dl Influenza Type A Antigen Neg for Influ A Influenza Type B Antigen Neg for Influ B White Blood Count 5.99 K/uL Red Blood Count 3.84 M/uL Hemoglobin 11.0 g/dL Hematocrit 34.5 % Mean Corpuscular Volume 89.8 fL Mean Corpuscular Hemoglobin 28.6 pg Mean Corpuscular Hemoglobin Concent 31.9 g/dl RDW Standard Deviation 62.4 fL RDW Coefficient of Variation 19.5 % Platelet Count 134 K/uL Mean Platelet Volume 11.4 fL Sodium Level 138 mmol/L Potassium Level 3.2 mmol/L Chloride Level 104 mmol/L Carbon Dioxide Level 26 mmol/L Anion Gap 8.0 mmol/L Blood Urea Nitrogen 12 mg/dl Creatinine 1.79 mg/dl Est Creatinine Clear Calc Drug Dose 72.8 ml/min Estimated GFR () 56.1 Estimated GFR (Non- 48.4 BUN/Creatinine Ratio 6.8 Random Glucose 134 mg/dl Calcium Level 8.1 mg/dl Magnesium Level 1.9 mg/dl Total Bilirubin 6.6 mg/dl Direct Bilirubin 5.0 mg/dl Aspartate Amino Transf (AST/SGOT) 216 U/L Alanine Aminotransferase (ALT/SGPT) 153 U/L Alkaline Phosphatase 146 U/L Total Protein 6.2 gm/dl Albumin 2.9 gm/dl Lipase 1702 U/L Assessment and Plan 32 y/o M Hx HTN, bipolar disease, asthma, low back pain, RUQ pain with LFT abnormalities. Pt was admitted for RUQ pain and elevated LFTs including a Tbili of 4,7 12/23. No etiology was confirmed on extensive workup which included EGD and MRCP. The bilirubin gradually normalized without intervention and the pt was DCd. He presents with recurrence of RUQ pain, nausea and vomiting x 1 week. . 1) Jaundice, RUQ pain - elevated LFTs - Initial labs reveal transaminitis and a bilirubin of 7.5 in addition to CHEKO, hypoK, hypoMg. The pt continues to be visably visibly jaundice. An US obtained in the ER did not show a dilated CBD or evidence of biliary obstruction MRCP showed no signs of biliary obstruction He will continue to be NPO. GI saw patient and stated that he may benefit from cholecystectomy. Analgesics, antiemetics will provided PRN. LFTs continue to be elevated Will consult Surgery for cholecystecomy. 2) CHEKO - dehydration - aggressive IVF provided - trend BMP. 3) HypoK, HypoMg - again are replaced - repeat labs AM 4) Bipolar - cont Amitriptyline 5) Lipase is increased - likely due to vomiting - do not suspect pancreatitis - will trend AM 6) HTN - RANDA held due to CHEKO - resume when corrected Spent 40 minutes on the management of this case. Continued [facility] stay due to: abnormal vital signs, inadequate oral pain control , other (abd. pain)
--- NOTE | 2017-03-09 18:35 | Surgery Consultation ---
Consultation Date of Consultation: Mar 09, 2017. Attending Physician: Mulugeta Alvarez M.D. History of Present Illness The patient is a 32 year old white male with a past medical history of asthma, concussion and fracture of L4 and L5, who presents to the ED with a cc of persistent vomiting beginning 1 week BOTTOM [employer] SHO[employer]. He believes he has been vomiting up to 10 times a day. Positive headache, back pain, abdominal pain, rash on chest and abdomen. He states the rash started on February 19 after eating blue cheese , and admits to a "dairy allergy". Negative fevers, urinary symptoms. The patient denies any recent travel, bug bites, hunting, camping, hiking or drinking from a stream or well. 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 He denies any ETOH use, drug use or drug allergies. The patient denies any recent loss of bowel or bladder function. He notes he did become dizzy approximately 1 week ago and fell, but denies any LOC. I saw pt at bedside, I reviewed pt's H/P with pt, pt has high T Bilirubin since 12/2016, some RUQ pain, pt denies fever, no diarrhea, Past Medical/Surgical History Medical Problems: (1) Acute renal failure Status: Acute (2) Anemia Status: Acute (3) Back pain Status: Acute (4) Bilateral flank pain Status: Acute (5) Biliary obstruction Status: Acute (6) Contusion of foot Status: Acute (7) Elevated bilirubin Status: Acute (8) Flank pain Status: Acute (9) Headache Status: Acute (10) Hematuria Status: Acute (11) Hematuria Status: Acute (12) Hypertension Status: Acute (13) Hypokalemia Status: Acute (14) Hypokalemia Status: Acute (15) Hypomagnesemia Status: Acute (16) Lumbar back pain Status: Acute (17) UTI (urinary tract infection) Status: Acute (18) Vomiting Status: Acute Family History Asthma Cancer Diabetes mellitus FH: heart disease FHx: lung disease Hypertension Kidney disease Kidney stones Stroke Social History Smoking Status: Never Smoker Smokeless Tobacco Use: No Alcohol Use: none Drug Use: none Marital Status: single Housing Status: lives with family Occupation Status: unemployed Allergies Coded Allergies: Penicillins (Verified Allergy, Intermediate, ITCHY BLOTCHES, 01/28/17) Naproxen (Unverified Allergy, Unknown, ITCHY, 01/28/17) Red Dye (Verified Allergy, Unknown, HIVES, 01/28/17) Home Medications Scheduled Albuterol Hfa (Ventolin Hfa), 2-4 PUFFS INH BID Albuterol Sulf (Proventil 0.083% 2.5MG/3ML), 2.5 MG INH PRN Amitriptyline Hcl (Elavil), 50 MG PO HS Fluticasone Prop/Salmeterol (Advair Diskus 250/50 60 Dose), 2 PUFF INH BID Folic Acid (Folic Acid), 1 MG PO QAM Lisinopril (Lisinopril), 10 MG PO DAILY Pantoprazole (Protonix), 40 MG PO DAILY Current Inpatient Medications Current Inpatient Medications Medications (Trade) Dose Ordered Sig/Reena Route Start Time Stop Time Status Last Admin Dose Admin Ioversol (Optiray 320) 111 ml UD PRN IV 03/08/17 17:30 03/12/17 17:29 Albuterol (Ventolin Hfa Inhaler) 2 puffs Q6H PRN INH 03/08/17 20:45 04/07/17 20:44 Amitriptyline HCl (Elavil Tab) 50 mg HS PO 03/08/17 21:00 04/07/17 20:59 03/08/17 21:18 50 MG Salmeterol Xinafoate/ Fluticasone (Advair Diskus 250/50 Inh) 2 puff BID INH 03/08/17 21:00 04/07/17 20:59 03/09/17 10:18 2 PUFF Folic Acid (Folvite Tab) 1 mg QAM PO 03/09/17 09:00 04/08/17 08:59 03/09/17 10:18 1 MG Pantoprazole Sodium (Protonix Tab) 40 mg DAILY PO 03/09/17 09:00 04/08/17 08:59 03/09/17 10:18 40 MG Zolpidem Tartrate (Ambien Tab) 5 mg HSZ PRN PO 03/08/17 20:45 04/07/17 20:44 Ondansetron HCl (Zofran Inj) 4 mg Q6H PRN IV 03/08/17 20:45 04/07/17 20:44 Morphine Sulfate (MoRPHine SULFATE INJ) 4 mg Q4H PRN IV 03/08/17 22:45 2 22:44 03/09/17 15:43 4 MG Review of Systems Constitutional: No fever, No chills, No sweats, No weight loss, No weakness, No fatigue, No problem reported Eyes: No worsening of vision, No eye pain, No redness, No discharge, No diplopia, No problem reported ENT: No hearing loss, No unusual epistaxis, No nasal symptoms, No sore throat, No tinnitus, No dental problems, No trouble swallowing, No problem reported Respiratory: No cough, No sputum, No wheezing, No shortness of breath, No dyspnea on exertion, No dyspnea at rest, No hemoptysis, No problem reported Cardiovascular: No chest pain, No orthopnea, No PND, No edema, No claudication , No palpitations, No problem reported Abdomen: + pain, + nausea Musculoskeletal: No joint pain, No muscle pain, No swelling, No calf pain, No problem reported Genitourinary - Male: No hematuria, No dysuria, No urinary frequency, No urinary urgency, No urinary hesitancy, No urinary retention, No urinary incontinence, No penile discharge, No lesions, No impotence, No problem reported Neurologic: No memory loss, No paralysis, No weakness, No numbness/tingling, No vertigo, No balance problems, No problem reported Psychiatric: + problem reported (bipolar) Endocrine: No fatigue, No excessive thirst, No excessive urination, No problem reported Hematologic / Lymphatic: No abnormal bleeding/bruising, No clotting problems, No swollen lymph nodes, No night sweats, No problem reported Physical Exam Date Time Temp Pulse Resp B/P (MAP) Pulse Ox O2 Delivery O2 Flow Rate FiO2 03/09/17 15:14 36.9 105 18 135/85 (102) 99 Room Air 03/09/17 08:07 37.1 99 16 123/84 (97) 100 2.0 03/08/17 23:55 Nasal Cannula 2.0 03/08/17 23:11 36.6 106 16 118/76 (90) 96 Nasal Cannula 2.0 03/08/17 22:00 Nasal Cannula 2.0 03/08/17 22:00 36.8 109 16 120/78 Nasal Cannula 2.0 03/08/17 20:30 102/68 03/08/17 20:24 117 20 122/72 96 Nasal Cannula 2.0 03/08/17 20:22 122/72 03/08/17 20:00 112 14 136/75 97 03/08/17 19:49 101/73 03/08/17 19:00 119 20 129/68 96 General Appearance: WD/WN, no apparent distress Head: normocephalic Eyes: normal inspection (Jundice) ENT: normal ENT inspection Neck: supple, no JVD Respiratory/Chest: chest non-tender, lungs clear Cardiovascular: regular rate, rhythm, no edema, no gallop, no JVD, no murmur Abdomen/GI: normal bowel sounds, non tender, soft, + tenderness (slightly tenderness at RUQ pain, no rebound pain, ) Extremities/Musculoskelatal: normal inspection, no calf tenderness, normal capillary refill Neurologic/Psych: no motor/sensory deficits, alert, normal mood/affect Skin: normal color, warm/dry, no rash Laboratory Results Last 24 Hours Test 03/08/17 20:20 03/08/17 21:24 03/08/17 22:26 03/09/17 07:36 Urine Color DK YELLOW Urine Appearance TURBID Urine pH 5.0 Urine Specific [place] 1.025 Urine Protein 2+ Urine Glucose (UA) NEG Urine Ketones TRACE Urine Occult Blood 2+ Urine Nitrite POS Urine Bilirubin 3+ Urine Urobilinogen POS Urine Leukocyte Esterase MODERATE Urine WBC (Auto) >30 /hpf Urine RBC (Auto) 10-30 /hpf Urine Hyaline Casts (Auto) >30 /lpf Urine Epithelial Cells (Auto) >30 /lpf Urine Bacteria (Auto) NEG Urine Crystals AMORPHOUS SEDIMENT Urine Pathogenic Casts See comments /lpf Urine Yeast (Auto) Ethyl Alcohol mg/dL < 3.0 mg/dl Influenza Type A Antigen Neg for Influ A Influenza Type B Antigen Neg for Influ B White Blood Count 5.99 K/uL Red Blood Count 3.84 M/uL Hemoglobin 11.0 g/dL Hematocrit 34.5 % Mean Corpuscular Volume 89.8 fL Mean Corpuscular Hemoglobin 28.6 pg Mean Corpuscular Hemoglobin Concent 31.9 g/dl RDW Standard Deviation 62.4 fL RDW Coefficient of Variation 19.5 % Platelet Count 134 K/uL Mean Platelet Volume 11.4 fL Sodium Level 138 mmol/L Potassium Level 3.2 mmol/L Chloride Level 104 mmol/L Carbon Dioxide Level 26 mmol/L Anion Gap 8.0 mmol/L Blood Urea Nitrogen 12 mg/dl Creatinine 1.79 mg/dl Est Creatinine Clear Calc Drug Dose 72.8 ml/min Estimated GFR () 56.1 Estimated GFR (Non- 48.4 BUN/Creatinine Ratio 6.8 Random Glucose 134 mg/dl Calcium Level 8.1 mg/dl Magnesium Level 1.9 mg/dl Total Bilirubin 6.6 mg/dl Direct Bilirubin 5.0 mg/dl Aspartate Amino Transf (AST/SGOT) 216 U/L Alanine Aminotransferase (ALT/SGPT) 153 U/L Alkaline Phosphatase 146 U/L Total Protein 6.2 gm/dl Albumin 2.9 gm/dl Lipase 1702 U/L Assessment & Plan U/S-FINDINGS: Pancreas: The pancreatic head is obscured by overlying bowel gas. The remaining portions of the pancreas are within normal limits. Liver: The liver is echogenic consistent with fatty change. The liver is enlarged measuring 25 cm in length. Gallbladder: No gallbladder wall thickening. No gallstones. Gallbladder sludge. CBD: 6 mm. Right kidney: No hydronephrosis. IMPRESSION: 1. No gallbladder wall thickening. No gallstones. Gallbladder sludge is present. 2. Hepatomegaly demonstrating fatty change. CT scan-FINDINGS: Groundglass nodular airspace opacities seen within the right middle and lower lobes. This likely represents a pneumonia. Small hiatus hernia. No pneumoperitoneum. No pneumatosis. Bilateral gynecomastia. Mild thickening of the distal esophagus, unchanged. Severe hepatic steatosis. Stable 12 mm hyperdense lesion within the right hepatic lobe. The liver is enlarged. The spleen, adrenal glands, and pancreas are unremarkable. Increased density within the gallbladder lumen likely representing sludge. No gallbladder wall thickening. There are few punctate stones within the kidneys. The kidneys enhance normally. No ureteral stones. No hydronephrosis. The bladder is completely decompressed and not well visualized. No retroperitoneal lymphadenopathy. Prior appendectomy. No bowel wall thickening or obstruction. Minimal fat stranding surrounding the celiac axis, unchanged. This is likely chronic. IMPRESSION: 1. No bowel wall thickening or obstruction. 2. Groundglass nodular densities within the right lung base likely representing a pneumonia. 3. Severe hepatic steatosis and a 12 mm lesion within the right hepatic lobe, unchanged. 4. Greater than expected density within the gallbladder likely representing sludge. No gallbladder wall thickening. 5. Bilateral nephrolithiasis. No ureteral stones. No hydronephrosis. 6. Prior appendectomy. 7. Minimal nonspecific fat stranding surrounding the celiac axis, unchanged. MRCP:FINDINGS: There is an 11 mm T2 bright lesion within the right hepatic lobe. This remains unchanged in size from the preceding CT scan. There is hepatic steatosis. No gallbladder filling defects are visualized. There is no erosive intra or extrahepatic biliary ductal dilatation. The common bile duct measures 5 mm. No ductal filling defects are visualized. The pancreatic duct appears normal. IMPRESSION: 1. Hepatic steatosis 2. 12 mm T2 bright right lobe hepatic lesion 3. No evidence of ductal dilatation. No ductal filling defects identified. Assessment, pt is a 32 year old male who was admitted to hospital for High Bilirubin,and RUQ pain, IMP: RUQ pain, High bilirubin pt said pt's Mom had same problem,once pt's Mom had cholecystectomy, his mom doing fine, repeat labs in AM, NPO after MN possible to do laparoscopic cholecystectomy, liver lesion biopsy, D/W benefits, risks and alternatives of the procedure, the risks - infection, bleeding, injury CBD, bowel, possible pt is still have RUQ pain and high bilirubin, pt understood, he agrees with the plan, I answered all questions,
--- NOTE | 2017-03-09 18:38 | GASTROINTESTINAL CONSULTATION ---
DATE OF CONSULTATION: 03/09/2017 GASTROENTEROLOGY INPATIENT CONSULTATION NOTE CHIEF COMPLAINT: Right upper quadrant pain, abnormal liver function tests. HISTORY OF PRESENT ILLNESS: Mr. To is a 32-year-old white male accompanied by his mother today in the patient's room. The patient was admitted yesterday with symptoms of right upper quadrant pain, nausea and vomiting. This originally occurred in late November or early December, at which time the patient had a liver test elevations with no specific cause identified. By the patient's history, his symptoms never really resolved over the past 2 months and would get intermittently worse. This became unbearable for him and prompted evaluation in the Emergency Room. In the past, he did have elevations with right upper quadrant pain of LFTs and bilirubin with a workup that included an EGD and MRCP, the bilirubin eventually normalized or became near normalized and was discharged. On admission on yesterday, the patient's liver tests were found to be markedly elevated. The patient has poor tolerance of food and reports weight loss. The pain is focused mostly in the right upper quadrant and for the most part does not radiate to the back, shoulder or anterior to the epigastrium or left side. PAST MEDICAL HISTORY: Includes the prior right upper quadrant pain with of LFT elevations, bipolar disease, lower back pain, neck fracture due to fall from 17 feet. He has a history of asthma, hypertension, vertebral fracture and has esophagitis on EGD in December 2016. FAMILY HISTORY: Significant for mother who also had gallbladder surgery for sludge with similar symptoms. There is also a history of asthma, cancer, diabetes, heart disease, lung disease, renal disorders, hypertension, strokes and kidney stones. SOCIAL HISTORY: The patient denies tobacco use, is single, lives with family, is unemployed. ALLERGIES: INCLUDE PENICILLIN, NAPROXEN, AND RED DYE. HOME MEDICATIONS: Include albuterol, amitriptyline 50 mg at bedtime, fluticasone, folic acid, lisinopril, and pantoprazole. REVIEW OF SYSTEMS: Otherwise noncontributory based on 13-point exam except for mentioned above. He denies any fever or shaking chills. He has had vomiting but no hematemesis or coffee-ground emesis. He does not report diarrhea or constipation and has not had melena or bright red blood per rectum. There is no dysuria or hematuria. PHYSICAL EXAMINATION: VITAL SIGNS: On admission showed a temperature 36.9, blood pressure is 110/74, heart rate 128, respirations 21, on room air. GENERAL: Currently, patient is awake, alert and oriented x3 and sitting in bed with mild discomfort. HEENT: Sclerae are mildly icteric. Oral mucosa is moist. NECK: There is no cervical or supraclavicular adenopathy. I do not appreciate thyromegaly. The neck shows an overall normal range of motion and the head is normocephalic. HEART: Normal S1, S2. LUNGS: Clear to auscultation. ABDOMEN: Soft, moderately tender in the right upper quadrant with a questionable Browning sign. There is no rebound or guarding. There are positive bowel sounds. EXTREMITIES: Show overall normal range of motion. Without clubbing, cyanosis or edema. RECTAL: Deferred at this time. SKIN: Has tattoos, although is dry and intact. NEUROLOGICAL: There are no focal neurologic defects. LABORATORY STUDIES: On admission - white count is 6.95, hemoglobin 13.2, MCV 86, and platelets 180,000. BUN and creatinine 11 and 2.3, which is elevated from prior lab tests; potassium is low at 2.8, magnesium level is low at 1.6, phosphorus 2.6, calcium 8.7. Total and direct bilirubin are 7.5 and 5.5 with an AST of 351, ALT 192, alkaline phosphatase 182, albumin 3.3, lipase is elevated at 894. IMAGING STUDIES: During this admission includes an MRCP from this morning which revealed hepatic steatosis, which has been seen on prior imaging studies and a 12 mm bright lesion in the right hepatic lobe, there is no evidence of ductal dilation or filling defects within the bile duct. The gallbladder does not appreciate filling defects. There is no intra or extrahepatic ductal dilation. The pancreatic duct appears normal. Common bile duct 5 mm. Gallbladder ultrasound yesterday and abdominal CT performed. CT revealed ground-glass nodular densities in the right lung field that may represent pneumonia, severe hepatic steatosis with a right hepatic lobe lesion that is unchanged. There is a density material within the gallbladder that may represent sludge, although gallbladder wall thickening or pericholecystic fluid is not appreciated. There are kidney stones bilaterally, prior appendectomy and there are some fat stranding in the vicinity of the celiac axis. The pancreas appears unremarkable as was the spleen and adrenals. Gallbladder ultrasound yesterday does not show gallbladder wall thickening, but gallbladder sludge is present. Gallstones are not appreciated. There is fatty change with hepatomegaly, common bile duct 6 mm. Prior imaging studies from his hospitalization in December included a normal hepatobiliary scan with a cystic duct. Abdominal ultrasound which showed fatty liver without evidence of gallstones or acute cholecystitis and was without biliary ductal dilatation. LABORATORY STUDIES: Presently show white count 5.9, which is essentially unchanged from admission; hemoglobin 11.0, MCV 89; platelets 134,000, but were 180 yesterday. Serum chemistries show a slight improvement in the bilirubin today, down to 6.6 from 7.5 with mostly direct fraction of 5.0; AST is down to 16, ALT down to 153 and alkaline phosphatase down to 146, lipase, however, is elevated at 17O2 and higher than yesterday at 894. Potassium is still low at 3.2. Creatinine function is slightly better at 1.79. Ethanol level is less than 3 and influenza type A and B are negative. Prior serology from December when a similar event occurred showed evidence of an EBV, elevated IgG level, although IgM was negative. EBV nuclear antigen antibody was also elevated. However, hepatitis A IgM, hepatitis B surface antigen, hepatitis B core IgM and hepatitis C were all negative and nonreactive. [place] screen was also negative. There was evidence for antistreptolysin screen that was positive with a titer of 800, that was earlier in March of 2016. The patient during his previous hospitalization had any an antismooth muscle of less than 120, AMA less than 120, ARNOLDO 1:80 titer which is homogeneous with a positive ARNOLDO screen. IMPRESSION AND PLAN: There is no evidence for acute hepatitis A, B or C, as of December and these pattern of liver tests although began to resolve, did not fully resolve and have now rebounded with acute symptoms. The differential diagnosis for this includes chronic cholecystitis, possibly sludge-related changes in the bile duct that are causing intermittent obstruction short of ductal dilation. Although, there is a dense fatty liver appearance, the pattern of liver testing would not strongly suggest this is the cause and there appears to be a much more intense acute process. I believe autoimmune hepatitis is less likely in this setting, although still remains in the differential. I made the following recommendations: I would obtain a serum protein electrophoresis, a surgical evaluation this evening to see if the exam and clinical presentation suggests a chronic cholecystitis. At that time, a liver biopsy can be obtained and possibly intraoperative cholangiogram given the absence of ductal dilation on MRCP and imaging studies during this and previous hospitalization. At presently, as his numbers are coming down, I would not favor ERCP unless there was clearly a filling defect appreciated that could not be removed inappropriately. Would check SPEP. Would keep patient n.p.o. Presently and throughout this admission, the patient has not had a fever; however, if the patient does have leukocytosis or fever developed, would consider blood cultures and empiric antibiotics that covers for biliary sources. We will follow with you. All questions answered.
[2017-03-09] MEDS: AMITRIPTYLINE HCL 50 MG TAB PO SCH (20:03)
[2017-03-09 23:09] VITALS: BP 117/81; PULSE 107; TEMP 37; O2SAT 98
[2017-03-10] MEDS: MoRPHine SULFATE 4 MG/ML 1 ML CARP\\VIAL IV PRN ×6 (00:16→19:53)
[2017-03-10 07:31] VITALS: BP 138/93; PULSE 104; TEMP 37.2; O2SAT 98
[2017-03-10] MEDS: PANTOprazole SOD 40 MG TAB PO SCH (09:31)
[2017-03-10] MEDS: FLUTICASONE/SALMETEROL 250/50 (ADVAIR) 14 PUFF/1 INHALER INH SCH ×2 (09:31→20:35)
[2017-03-10 11:06] LABS: HEMATOCRIT 31.1 % (42-52); HEMOGLOBIN 9.8 g/dL (14.0-18.0); MEAN CELL VOLUME 90.4 fL (80-100); MEAN CORPUSCULAR HEMOGLOBIN 28.5 pg (25-34); MEAN CORPUSCULAR HGB CONC 31.5 g/dl (32-36); MEAN PLATELET VOLUME 10.6 fL (7.4-10.4); PLATELET COUNT 107 K/uL (130-400); RED CELL DISTRIBUTION WIDTH CV 19.7 % (11.5-14.5); RED CELL DISTRIBUTION WIDTH SD 63.6 fL (36.4-46.3); WHITE BLOOD COUNT 5.64 K/uL (4.8-10.8)
[2017-03-10 11:32] LABS: ALBUMIN 2.7 gm/dl (3.4-5.0); CALCIUM 8.3 mg/dl (8.5-10.1); CREATININE 0.97 mg/dl (0.60-1.40); POTASSIUM 2.9 mmol/L (3.5-5.1); TOTAL PROTEIN 5.9 gm/dl (6.4-8.2)
[2017-03-10] MEDS: POTASSIUM CHLR 10 MEQ / WTR 10 MEQ in PREMIXED WATER 100 ML IV SCH ×4 (12:44→16:12)
[2017-03-10] MEDS ORDERED: POTASSIUM CHLORIDE 10 MEQ TABCR PO STA (13:15)
--- NOTE | 2017-03-10 13:23 | Surgery Progress Note ---
Surgery Progress Note Date of Service Mar 10, 2017. Subjective pt is still have some RUQ pain, with nausea, no vomiting, no fever, more jundice today, (T) Bili 8.3, Direct Bili 5.7. Objective Vital Signs: Date Time Temp Pulse Resp B/P (MAP) Pulse Ox O2 Delivery O2 Flow Rate FiO2 03/10/17 07:31 37.2 104 16 138/93 (108) 98 Room Air 03/10/17 07:25 Room Air 03/09/17 23:09 37.0 107 16 117/81 (93) 98 Room Air 03/09/17 19:55 Room Air 03/09/17 15:14 36.9 105 18 135/85 (102) 99 Room Air General Appearance: WD/WN, no apparent distress Head: normocephalic Neck: supple, no JVD Respiratory/Chest: chest non-tender, lungs clear, normal breath sounds Cardiovascular: regular rate, rhythm, no edema, no gallop, no JVD, no murmur Abdomen: normal bowel sounds, non distended, soft, no organomegaly, + tenderness (at RUQ , no rebound pain) Extremities: normal range of motion, non-tender, normal inspection Laboratory Results: Results Past 24 Hours Test 03/10/17 10:52 Range/Units White Blood Count 5.64 4.8-10.8 K/uL Red Blood Count 3.44 4.7-6.1 M/uL Hemoglobin 9.8 14.0-18.0 g/dL Hematocrit 31.1 42-52 % Mean Corpuscular Volume 90.4 80-100 fL Mean Corpuscular Hemoglobin 28.5 25-34 pg Mean Corpuscular Hemoglobin Concent 31.5 32-36 g/dl RDW Standard Deviation 63.6 36.4-46.3 fL RDW Coefficient of Variation 19.7 11.5-14.5 % Platelet Count 107 130-400 K/uL Mean Platelet Volume 10.6 7.4-10.4 fL Sodium Level 135 136-145 mmol/L Potassium Level 2.9 3.5-5.1 mmol/L Chloride Level 100 98-107 mmol/L Carbon Dioxide Level 24 21-32 mmol/L Anion Gap 11.0 3-11 mmol/L Blood Urea Nitrogen 6 7-18 mg/dl Creatinine 0.97 0.60-1.40 mg/dl Est Creatinine Clear Calc Drug Dose 134.4 ml/min Estimated GFR () 117.6 Estimated GFR (Non- 101.4 BUN/Creatinine Ratio 6.0 10-20 Random Glucose 78 70-99 mg/dl Calcium Level 8.3 8.5-10.1 mg/dl Total Bilirubin 8.3 0.2-1 mg/dl Direct Bilirubin 5.8 0-0.2 mg/dl Aspartate Amino Transf (AST/SGOT) 194 15-37 U/L Alanine Aminotransferase (ALT/SGPT) 131 12-78 U/L Alkaline Phosphatase 123 45-117 U/L Total Protein 5.9 6.4-8.2 gm/dl Albumin 2.7 3.4-5.0 gm/dl Globulin 3.2 2.5-4.0 gm/dl Albumin/Globulin Ratio 0.9 0.9-2 Lipase 372 73-393 U/L Assessment & Plan base on high (T) bilirubin, and direct bilirubin, most likely Biliary obstruction, pt needs ERCP first, cancer cholecystectomy, if there is no OR room available for ERCP, pt should transfer to higher level care, pt and his Mom understood, I answered all questions, correct low K, po K-dur 20 MEQ now, then 10 MEQ bid, will F/U
[2017-03-10 14:52] VITALS: BP 125/84; PULSE 115; TEMP 37.2; O2SAT 96
[2017-03-10] MEDS: NSS + 20MEQ KCL 1000ML 1,000 ML IV SCH (18:17)
--- NOTE | 2017-03-10 19:00 | PROGRESS NOTE ---
DATE: 03/10/2017 SUBJECTIVE: The patient continues to have pain in the right upper abdomen. He also has decreased appetite and some nausea. Vital signs show blood pressure 125/84, pulse 115, temperature is 37.2. LABORATORY DATA: White count 5.64, hemoglobin 9.8, platelets 107,000. Bilirubin has gone from 6.6 to 8.3 overnight. AST and ALT slightly lower. Alkaline phosphatase slightly lower at 123, albumin is 2.7. His lipase yesterday was 1702, today it is 372, I am not sure how to explain that, could be some hemoconcentration. There is nothing to indicate acute pancreatitis on his x-rays. I reviewed his previous hospitalizations, lab work and x-rays with the radiologist including all the films from previously and this hospitalization. He has a markedly enlarged and very very densely fatty liver with no obvious explanation either metabolically or by medications. He does not drink any alcohol. His gallbladder is functioning normally, it is of normal size without stones. There is no pericholecystic fluid or wall thickening. His hepatobiliary tree is also normal caliber without filling defects. I do not believe he has cholecystitis or common duct stone or sludge that would require an ERCP or cholecystectomy. The worsening bilirubin is concerning and I suspect that he may have autoimmune hepatitis as his ARNOLDO was slightly elevated at 1:80 titer with a homogeneous pattern during his last hospitalization, I plan on repeating that now along with antismooth muscle antibody and an IgG level. We will also get a ceruloplasmin level and I plan on beginning empiric treatment with IV Solu-Medrol 20 mg twice a day to see if it offers any clinical improvement. Dr. Figueroa will be rounding on patient over the weekend.
[2017-03-10] MEDS: AMITRIPTYLINE HCL 50 MG TAB PO SCH (20:35)
[2017-03-10] MEDS: METHYLPREDNISOLONE IV 20 MG in SYRINGE 0 ML IV SCH (20:35)
[2017-03-10] MEDS ORDERED: POTASSIUM CHLORIDE 10 MEQ TABCR PO SCH (21:00)
[2017-03-10 22:57] VITALS: BP 131/87; PULSE 107; TEMP 37.1; O2SAT 99
--- NOTE | 2017-03-10 22:59 | Progress Note ---
Subjective Date of Service: Mar 10, 2017. Subjective Pt evaluation today including: conversation w/ patient, physical exam Patient reports that he continues to have right upper quadrant abdominal pain. He states the intensity has not worsened. Patient reports some nausea. Patient denies fever, chills, diarrhea. Problem List Medical Problems: (1) Acute renal failure Status: Acute (2) Anemia Status: Acute (3) Back pain Status: Acute (4) Bilateral flank pain Status: Acute (5) Biliary obstruction Status: Acute (6) Contusion of foot Status: Acute (7) Elevated bilirubin Status: Acute (8) Flank pain Status: Acute (9) Headache Status: Acute (10) Hematuria Status: Acute (11) Hematuria Status: Acute (12) Hypertension Status: Acute (13) Hypokalemia Status: Acute (14) Hypokalemia Status: Acute (15) Hypomagnesemia Status: Acute (16) Lumbar back pain Status: Acute (17) UTI (urinary tract infection) Status: Acute (18) Vomiting Status: Acute Review of Systems Constitutional: No fever, No chills ENT: No hearing loss Respiratory: No cough Cardiac: No chest pain Breast: No breast lump Abdomen: No pain Neurologic: No memory loss Psychiatric: No depression symptoms Endo: No fatigue Skin: No rash All Other Systems: Reviewed and Negative Objective Vital Signs Date Time Temp Pulse Resp B/P (MAP) Pulse Ox O2 Delivery O2 Flow Rate FiO2 03/10/17 22:57 37.1 107 14 131/87 (102) 99 Room Air 03/10/17 15:10 Room Air 03/10/17 14:52 37.2 115 16 125/84 (98) 96 Room Air 03/10/17 07:31 37.2 104 16 138/93 (108) 98 Room Air 03/10/17 07:25 Room Air 03/09/17 23:09 37.0 107 16 117/81 (93) 98 Room Air Physical Exam Comments: General Appearance: WD/WN, no apparent distress Eyes: EOMI, + abnormal sclerae exam (juandiced) ENT: normal ENT inspection Neck: supple, no adenopathy Respiratory/Chest: chest non-tender, lungs clear, normal breath sounds Cardiovascular: regular rate, rhythm, no edema Abdomen: soft (no rebound), + tenderness (in epigastric and RUQ.) Extremities: normal range of motion Skin: normal color Lymphatic: no adenopathy Laboratory Results Last 24 Hours Test 03/10/17 10:52 03/10/17 18:29 White Blood Count 5.64 K/uL Red Blood Count 3.44 M/uL Hemoglobin 9.8 g/dL Hematocrit 31.1 % Mean Corpuscular Volume 90.4 fL Mean Corpuscular Hemoglobin 28.5 pg Mean Corpuscular Hemoglobin Concent 31.5 g/dl RDW Standard Deviation 63.6 fL RDW Coefficient of Variation 19.7 % Platelet Count 107 K/uL Mean Platelet Volume 10.6 fL Sodium Level 135 mmol/L Potassium Level 2.9 mmol/L Chloride Level 100 mmol/L Carbon Dioxide Level 24 mmol/L Anion Gap 11.0 mmol/L Blood Urea Nitrogen 6 mg/dl Creatinine 0.97 mg/dl Est Creatinine Clear Calc Drug Dose 134.4 ml/min Estimated GFR () 117.6 Estimated GFR (Non- 101.4 BUN/Creatinine Ratio 6.0 Random Glucose 78 mg/dl Calcium Level 8.3 mg/dl Total Bilirubin 8.3 mg/dl Direct Bilirubin 5.8 mg/dl Aspartate Amino Transf (AST/SGOT) 194 U/L Alanine Aminotransferase (ALT/SGPT) 131 U/L Alkaline Phosphatase 123 U/L Total Protein 5.9 gm/dl Albumin 2.7 gm/dl Globulin 3.2 gm/dl Albumin/Globulin Ratio 0.9 Lipase 372 U/L Immunoglobulin G 757.0 mg/dL Assessment and Plan 32 y/o M Hx HTN, bipolar disease, asthma, low back pain, RUQ pain with LFT abnormalities. Pt was admitted for RUQ pain and elevated LFTs including a Tbili of 4,7 12/23. No etiology was confirmed on extensive workup which included EGD and MRCP. The bilirubin gradually normalized without intervention and the pt was DCd. He presents with recurrence of RUQ pain, nausea and vomiting x 1 week. . 1) Jaundice, RUQ pain - elevated LFTs - Initial labs reveal transaminitis and a bilirubin of 7.5 in addition to CHEKO, hypoK, hypoMg. Bilirubin is rising from 6.3 to 8 However, no sings of acute abdomen. An US obtained in the ER did not show a dilated CBD or evidence of biliary obstruction MRCP showed no signs of biliary obstruction He will continue to be NPO. Patient though has signs of fatty liver. Autoimmune hepatitis is a possibility. Analgesics, antiemetics will provided PRN. LFTs will continue to be monitored 2) CHEKO - dehydration - aggressive IVF provided - trend BMP. 3) HypoK, HypoMg - again are replaced - repeat labs AM 4) Bipolar - cont Amitriptyline 5) Lipase is increased - likely due to vomiting - do not suspect pancreatitis - will trend AM 6) HTN - RANDA held due to CHEKO - resume when corrected Spent 45 minutes on the management of this case, informing family while discussing case with GI and General surgery Continued [facility] stay due to: abnormal vital signs, inadequate oral pain control , other (abd. pain)
[2017-03-11] MEDS: MoRPHine SULFATE 4 MG/ML 1 ML CARP\\VIAL IV PRN ×6 (00:10→22:10)
[2017-03-11] MEDS: NSS + 20MEQ KCL 1000ML 1,000 ML IV SCH ×2 (04:15→14:01)
--- NOTE | 2017-03-11 06:25 | Surgery Progress Note ---
Surgery Progress Note Date of Service Mar 11, 2017. Subjective + complaints (Still in some pain and having intermittent nausea/vomiting episodes), + ambulating, + bowel movement, + flatus, + pain controlled, + nausea (last episode yesterday afternoon), + vomiting, + diet (Currently NPO) Objective Vital Signs: Date Time Temp Pulse Resp B/P (MAP) Pulse Ox O2 Delivery O2 Flow Rate FiO2 03/11/17 00:15 Room Air 03/10/17 22:57 37.1 107 14 131/87 (102) 99 Room Air 03/10/17 15:10 Room Air 03/10/17 14:52 37.2 115 16 125/84 (98) 96 Room Air 03/10/17 07:31 37.2 104 16 138/93 (108) 98 Room Air 03/10/17 07:25 Room Air General Appearance: WD/WN, no apparent distress Head: normocephalic, atraumatic Neck: trachea midline Respiratory/Chest: no respiratory distress, no accessory muscle use Cardiovascular: no edema Abdomen: no organomegaly, no pulsatile mass, + distended (Mild), + tenderness ( RUQ) Laboratory Results: Results Past 24 Hours Test 03/10/17 10:52 03/10/17 18:29 03/11/17 04:44 Range/Units White Blood Count 5.64 4.8-10.8 K/uL Red Blood Count 3.44 4.7-6.1 M/uL Hemoglobin 9.8 14.0-18.0 g/dL Hematocrit 31.1 42-52 % Mean Corpuscular Volume 90.4 80-100 fL Mean Corpuscular Hemoglobin 28.5 25-34 pg Mean Corpuscular Hemoglobin Concent 31.5 32-36 g/dl RDW Standard Deviation 63.6 36.4-46.3 fL RDW Coefficient of Variation 19.7 11.5-14.5 % Platelet Count 107 130-400 K/uL Mean Platelet Volume 10.6 7.4-10.4 fL Sodium Level 135 136-145 mmol/L Potassium Level 2.9 3.5-5.1 mmol/L Chloride Level 100 98-107 mmol/L Carbon Dioxide Level 24 21-32 mmol/L Anion Gap 11.0 3-11 mmol/L Blood Urea Nitrogen 6 7-18 mg/dl Creatinine 0.97 0.60-1.40 mg/dl Est Creatinine Clear Calc Drug Dose 134.4 ml/min Estimated GFR () 117.6 Estimated GFR (Non- 101.4 BUN/Creatinine Ratio 6.0 10-20 Random Glucose 78 70-99 mg/dl Calcium Level 8.3 8.5-10.1 mg/dl Total Bilirubin 8.3 0.2-1 mg/dl Direct Bilirubin 5.8 0-0.2 mg/dl Aspartate Amino Transf (AST/SGOT) 194 15-37 U/L Alanine Aminotransferase (ALT/SGPT) 131 12-78 U/L Alkaline Phosphatase 123 45-117 U/L Total Protein 5.9 6.4-8.2 gm/dl Albumin 2.7 3.4-5.0 gm/dl Globulin 3.2 2.5-4.0 gm/dl Albumin/Globulin Ratio 0.9 0.9-2 Lipase 372 73-393 U/L Immunoglobulin G 757.0 700-1600 mg/dL Assessment & Plan High Tbili and direct bili, Biliary obstruction? Autoimmune hepatitis? No evidence of ductal dilatation or ductal filling defects on MRCP - biliary obstruction unlikely. ARNOLDO previously elevated - Repeat ARNOLDO, anti-smooth muscle antibody and IgG level per GI to further assess for possible autoimmune Hepatitis, started on IV Solu-medrol. No acute surgical intervention required at this time. Continue medical management as directed. Findings discussed with Dr. Hayes. Will continue to follow. 03/11/17- pt examined- gb looks relatively normal on studies Dr Aguilar's plan noted- will cont to follow Dr Hayes
[2017-03-11 06:27] LABS: HEMATOCRIT 32.4 % (42-52); HEMOGLOBIN 10.2 g/dL (14.0-18.0); MEAN CELL VOLUME 91.3 fL (80-100); MEAN CORPUSCULAR HEMOGLOBIN 28.7 pg (25-34); MEAN CORPUSCULAR HGB CONC 31.5 g/dl (32-36); MEAN PLATELET VOLUME 10.3 fL (7.4-10.4); PLATELET COUNT 127 K/uL (130-400); RED CELL DISTRIBUTION WIDTH CV 19.9 % (11.5-14.5); RED CELL DISTRIBUTION WIDTH SD 65.7 fL (36.4-46.3); WHITE BLOOD COUNT 5.09 K/uL (4.8-10.8)
[2017-03-11 07:08] LABS: ALBUMIN 2.8 gm/dl (3.4-5.0); CALCIUM 8.4 mg/dl (8.5-10.1); CREATININE 0.82 mg/dl (0.60-1.40); POTASSIUM 3.8 mmol/L (3.5-5.1); TOTAL PROTEIN 6.2 gm/dl (6.4-8.2)
[2017-03-11 07:31] VITALS: BP 127/84; PULSE 98; TEMP 36.7; O2SAT 99
[2017-03-11 08:30] LABS: BASO % 0.2 %; BASO ABS # 0.01 K/uL (0-0.2); EOS % 0.2 %; EOS ABS # 0.01 K/uL (0-0.5); IG# 0.41 K/uL (0.00-0.02); LYMPH % 15.3 %; LYMPH ABS # 0.78 K/uL (1.2-3.4); MONO % 3.5 %; MONO ABS # 0.18 K/uL (0.11-0.59); NEUT % 72.7 %
[2017-03-11] MEDS: FLUTICASONE/SALMETEROL 250/50 (ADVAIR) 14 PUFF/1 INHALER INH SCH ×2 (08:32→22:08)
[2017-03-11] MEDS: PANTOprazole SOD 40 MG TAB PO SCH (08:32)
[2017-03-11] MEDS: METHYLPREDNISOLONE IV 20 MG in SYRINGE 0 ML IV SCH ×2 (09:21→22:09)
[2017-03-11 11:37] LABS: INR 1.1 (0.9-1.1)
--- NOTE | 2017-03-11 12:01 | GASTROENTEROLOGY PROGRESS NOTE ---
DATE: 03/11/2017 SUBJECTIVE: Chart reviewed, patient examined. Discussed the case with Dr. Aguilar, who was rounding on his service yesterday. A gallbladder surgery was postponed due to rising liver tests. Today, the old imaging study has not suggested either intra or extrahepatic bile duct dilation or obvious filling defects within the biliary system. Initially, there was consideration of sludge in the gallbladder, although review has apparently called this and did question. There is a pronounced fatty appearance to the liver of uncertain etiology and evidence of hepatomegaly. The patient is not known to have any lipid abnormalities historically or family history to his understanding and has never been told of any chronic liver conditions. Pain has been present off and on since December with prior elevations in LFTs. VITAL SIGNS: Today, the patient is afebrile at 36.7, blood pressure 127/84, pulse ox 99 on room air, respirations 16. REVIEW OF SYSTEMS: Otherwise noncontributory. Stools are acholic. Urine is dark. The patient feels hungry, but (is currently n.p.o.) is without nausea or vomiting, but remains exquisitely tender in the right upper quadrant. PHYSICAL EXAMINATION: GENERAL: The patient is awake, alert and oriented x3. HEENT: Icteric sclerae are present. Buccal mucosa is moist. HEART: Normal S1, S2. LUNGS: Clear to auscultation. ABDOMEN: Soft. Exquisitely tender in the right upper quadrant with mild palpation. There is no costal tenderness associated. The left side of the abdomen is without tenderness. EXTREMITIES: Without clubbing, cyanosis or edema. RECTAL: Exam is deferred. LABORATORY STUDIES: Today, show white count 5.0, hemoglobin 10.2, which is overall stable, MCV normal at 91, platelets 127,000 up from yesterday at 107. Chemistries show the bilirubin is increased at 10.1, AST is slightly increased at 201, ALT 137, alk phos stable at 124. Current immunology, the IgG level is 757 within the normal range. Repeat ARNOLDO and smooth muscle antibody are pending at this time. In December, ARNOLDO had been slightly elevated at 180 in a homogenous pattern, although the smooth muscle antibody was negative. There is no evidence for influenza type A or B and on prior admission, had excluded acute hepatitis A or B or C infection. The origin of the patient's significant hepatic steatosis is unclear. The patient does not have evidence of adenopathy elsewhere in the abdomen, but the bright signal that is present likely reflects liver, although it questions whether another infiltrative process is occurring. Alkaline phosphatase, however, is not overly elevated. PLAN AND RECOMMENDATIONS: I made the following recommendations: The patient was started on IV steroids yesterday in an attempt to empirically treat what may be autoimmune hepatitis. I added a lipid panel today and await the results of the repeat ARNOLDO and smooth muscle antibody. We would follow the labs serially and continue the steroid protocol. At some point, a reconsideration for a cholecystectomy along with a liver biopsy and intraoperative cholangiogram may be needed. There has been a pattern of weight loss with the patient since the symptoms started and at some point, a liver biopsy may be particularly important to exclude an infiltrative process such as a lymphoma, although I believe this is less likely (absence of night sweats or significant chills). The patient does not have diabetes that would be a source of the patient's significant fatty infiltration in the liver and toxic sources of hepatitis and cholestatic pattern have not been identified. We will attempt to review a prior medication history to see if there are any agents that may have led to a cholestatic picture, such as a prior use of Augmentin or Bactrim over the last few months before the initial presentation. All questions answered. We will continue to follow with you. We would also check an INR today.
[2017-03-11 15:15] VITALS: BP 148/86; PULSE 112; TEMP 36.7; O2SAT 99
--- NOTE | 2017-03-11 17:20 | DIAGNOSTIC IMAGING REPORT ---
NUCLEAR MEDICINE HEPATOBILIARY SCAN CLINICAL HISTORY: Increased liver function tests. COMPARISON: Hepatobiliary scan December 15, 2016, CT of the abdomen and pelvis and right upper quadrant ultrasound March 08, 2017 and MRCP March 09, 2017. TECHNIQUE: 5 mCi of technetium 99m Choletec IV was injected at 4:00 PM on March 11, 2017. Immediately following injection, imaging of the abdomen was carried out for 75 minutes in the anterior projection. FINDINGS: Gallbladder and common bile duct activity is first noted at 25 minutes. There is delayed visualization of small bowel activity. Small bowel activity is noted at 75 minutes. Note is made of persistent blood pool activity at 60 minutes. This is longer than expected. IMPRESSION: 1. No evidence of acute or chronic cholecystitis. Normal visualization of gallbladder activity. 2. Persistent blood pool activity at 60 minutes which is longer than expected. This may be related to hepatic dysfunction. 3. Delayed visualization of small bowel activity, a nonspecific finding which can be due to spasm, hepatic dysfunction, sphincter dysfunction or partial common bile duct obstruction. Electronically signed by: Jose C De Jesus M.D. 03/11/2017 5:19 PM Dictated Date/Time: 03/11/2017 5:12 PM
[2017-03-11 17:36] VITALS: PULSE 104; O2SAT 96
--- NOTE | 2017-03-11 21:44 | Progress Note ---
Subjective Date of Service: Mar 11, 2017. Subjective Pt evaluation today including: conversation w/ patient, physical exam Patient reports having abd. pain in the right upper quadrant. No change from prior day in regards to intensity and characteristics. Patient also complains of back pain and headache which he denotes are chronic issues. Problem List Medical Problems: (1) Acute renal failure Status: Acute (2) Anemia Status: Acute (3) Back pain Status: Acute (4) Bilateral flank pain Status: Acute (5) Biliary obstruction Status: Acute (6) Contusion of foot Status: Acute (7) Elevated bilirubin Status: Acute (8) Flank pain Status: Acute (9) Headache Status: Acute (10) Hematuria Status: Acute (11) Hematuria Status: Acute (12) Hypertension Status: Acute (13) Hypokalemia Status: Acute (14) Hypokalemia Status: Acute (15) Hypomagnesemia Status: Acute (16) Lumbar back pain Status: Acute (17) UTI (urinary tract infection) Status: Acute (18) Vomiting Status: Acute Review of Systems Constitutional: No fever, No chills Respiratory: No cough, No sputum Cardiac: No chest pain Abdomen: + pain, + nausea Neurologic: No memory loss, No paralysis Psychiatric: No depression symptoms Endo: No fatigue Skin: No rash, No itch All Other Systems: Reviewed and Negative Medications Current Inpatient Medications Medications (Trade) Dose Ordered Sig/Reena Route Start Time Stop Time Status Last Admin Dose Admin Ioversol (Optiray 320) 111 ml UD PRN IV 03/08/17 17:30 03/12/17 17:29 Albuterol (Ventolin Hfa Inhaler) 2 puffs Q6H PRN INH 03/08/17 20:45 04/07/17 20:44 Amitriptyline HCl (Elavil Tab) 50 mg HS PO 03/08/17 21:00 04/07/17 20:59 03/11/17 22:09 50 MG Salmeterol Xinafoate/ Fluticasone (Advair Diskus 250/50 Inh) 2 puff BID INH 03/08/17 21:00 04/07/17 20:59 03/11/17 08:17 2 PUFF Folic Acid (Folvite Tab) 1 mg QAM PO 03/09/17 09:00 04/08/17 08:59 03/11/17 08:18 1 MG Pantoprazole Sodium (Protonix Tab) 40 mg DAILY PO 03/09/17 09:00 04/08/17 08:59 03/11/17 08:18 40 MG Zolpidem Tartrate (Ambien Tab) 5 mg HSZ PRN PO 03/08/17 20:45 04/07/17 20:44 Ondansetron HCl (Zofran Inj) 4 mg Q6H PRN IV 03/08/17 20:45 04/07/17 20:44 Morphine Sulfate (MoRPHine SULFATE INJ) 4 mg Q4H PRN IV 03/08/17 22:45 03/22/17 22:44 03/11/17 08:18 4 MG Potassium Chloride/Sodium Chloride 1,000 ml @ 100 mls/hr Q10H IV 03/10/17 18:00 04/09/17 17:59 03/11/17 09:48 100 MLS/HR Methylprednisolone Sodium Succinate 20 mg/Syringe 0.32 ml @ 1.5 mls/min BID IV 03/10/17 21:00 04/09/17 20:59 03/11/17 08:18 1.5 MLS/MIN Objective Vital Signs Date Time Temp Pulse Resp B/P (MAP) Pulse Ox O2 Delivery O2 Flow Rate FiO2 03/11/17 17:36 104 96 Room Air 03/11/17 17:30 Room Air 03/11/17 15:15 36.7 112 18 148/86 (106) 99 Room Air 03/11/17 07:45 Room Air 03/11/17 07:31 36.7 98 16 127/84 (98) 99 Room Air 03/11/17 00:15 Room Air 03/10/17 22:57 37.1 107 14 131/87 (102) 99 Room Air Physical Exam Comments: General Appearance: WD/WN, no apparent distress Eyes: EOMI, + abnormal sclerae exam (juandiced) ENT: normal ENT inspection Neck: supple, no adenopathy Respiratory/Chest: chest non-tender, lungs clear, normal breath sounds Cardiovascular: regular rate, rhythm, no edema Abdomen: soft (no rebound), + tenderness (in epigastric and RUQ.) Extremities: normal range of motion Skin: normal color Lymphatic: no adenopathy Laboratory Results Last 24 Hours Test 03/11/17 06:16 03/11/17 10:38 03/11/17 11:14 White Blood Count 5.09 K/uL Red Blood Count 3.55 M/uL Hemoglobin 10.2 g/dL Hematocrit 32.4 % Mean Corpuscular Volume 91.3 fL Mean Corpuscular Hemoglobin 28.7 pg Mean Corpuscular Hemoglobin Concent 31.5 g/dl Platelet Count 127 K/uL Mean Platelet Volume 10.3 fL Neutrophils (%) (Auto) 72.7 % Lymphocytes (%) (Auto) 15.3 % Monocytes (%) (Auto) 3.5 % Eosinophils (%) (Auto) 0.2 % Basophils (%) (Auto) 0.2 % Neutrophils # (Auto) 3.70 K/uL Lymphocytes # (Auto) 0.78 K/uL Monocytes # (Auto) 0.18 K/uL Eosinophils # (Auto) 0.01 K/uL Basophils # (Auto) 0.01 K/uL RDW Standard Deviation 65.7 fL RDW Coefficient of Variation 19.9 % Immature Granulocyte % (Auto) 8.1 % Immature Granulocyte # (Auto) 0.41 K/uL Polychromasia 1+ Anisocytosis PRESENT Stomatocytes 1+ Sodium Level 137 mmol/L Potassium Level 3.8 mmol/L Chloride Level 103 mmol/L Carbon Dioxide Level 20 mmol/L Anion Gap 14.0 mmol/L Blood Urea Nitrogen 3 mg/dl Creatinine 0.82 mg/dl Est Creatinine Clear Calc Drug Dose 158.9 ml/min Estimated GFR () 133.7 Estimated GFR (Non- 115.4 BUN/Creatinine Ratio 4.0 Random Glucose 84 mg/dl Lactic Acid Level 0.7 mmol/L Calcium Level 8.4 mg/dl Total Bilirubin 10.1 mg/dl Aspartate Amino Transf (AST/SGOT) 201 U/L Alanine Aminotransferase (ALT/SGPT) 137 U/L Alkaline Phosphatase 124 U/L Total Protein 6.2 gm/dl Albumin 2.8 gm/dl Globulin 3.4 gm/dl Albumin/Globulin Ratio 0.8 Prothrombin Time 11.4 SECONDS Prothromb Time International Ratio 1.1 Assessment and Plan 32 y/o M Hx HTN, bipolar disease, asthma, low back pain, RUQ pain with LFT abnormalities. Pt was admitted for RUQ pain and elevated LFTs including a Tbili of 4,7 12/23. No etiology was confirmed on extensive workup which included EGD and MRCP. The bilirubin gradually normalized without intervention and the pt was DCd. He presents with recurrence of RUQ pain, nausea and vomiting x 1 week. . 1) Jaundice, RUQ pain - elevated LFTs - Initial labs reveal transaminitis and a bilirubin of 7.5 in addition to CHEKO, hypoK, hypoMg. The pt continues to be visably visibly jaundice. An US obtained in the ER did not show a dilated CBD or evidence of biliary obstruction MRCP showed no signs of biliary obstruction HIDA scan was done. It showed normal gallbladder. There was an issue with delayed reuptake in liver which likely points to liver dysfunction. He does show signs of fatty liver on other imaging. HIDA scan also showed Delayed visualization of small bowel activity, a nonspecific finding which can be due to spasm, or sphincter dysfunction. GI saw patient and stated that he may benefit from liver biopsy Patient is empirically on IV steroids will place patient on a clear liquid diet. Analgesics, antiemetics will provided PRN. LFTs continue to be elevated Appreciate GI and surgery input. 2) CHEKO - dehydration - aggressive IVF provided - trend BMP. 3) HypoK, HypoMg - again are replaced - repeat labs AM 4) Bipolar - cont Amitriptyline 5) Lipase is increased - improved 6) HTN - RANDA held due to CHEKO - resume when corrected Spent 35 minutes on the management of this case. Continued [facility] stay due to: abnormal vital signs, inadequate oral pain control , other (abd. pain)
[2017-03-11] MEDS: AMITRIPTYLINE HCL 50 MG TAB PO SCH (22:09)
[2017-03-11 23:18] VITALS: BP 148/90; PULSE 93; TEMP 36.4; O2SAT 97
[2017-03-12] MEDS: NSS + 20MEQ KCL 1000ML 1,000 ML IV SCH ×3 (00:29→20:29)
[2017-03-12] MEDS: MoRPHine SULFATE 4 MG/ML 1 ML CARP\\VIAL IV PRN ×5 (02:05→21:32)
--- NOTE | 2017-03-12 05:09 | Surgery Progress Note ---
Surgery Progress Note Date of Service Mar 12, 2017. Subjective No acute changes- Hida scan- cystic duct patent, ++ visualization of gb pooling in blood, delayed activity in bowel Objective Vital Signs: Date Time Temp Pulse Resp B/P (MAP) Pulse Ox O2 Delivery O2 Flow Rate FiO2 03/12/17 00:15 Room Air 03/11/17 23:18 36.4 93 16 148/90 (109) 97 Room Air 03/11/17 17:36 104 96 Room Air 03/11/17 17:30 Room Air 03/11/17 15:15 36.7 112 18 148/86 (106) 99 Room Air 03/11/17 07:45 Room Air 03/11/17 07:31 36.7 98 16 127/84 (98) 99 Room Air Laboratory Results: Results Past 24 Hours Test 03/11/17 06:16 03/11/17 10:38 03/11/17 11:14 Range/Units White Blood Count 5.09 4.8-10.8 K/uL Red Blood Count 3.55 4.7-6.1 M/uL Hemoglobin 10.2 14.0-18.0 g/dL Hematocrit 32.4 42-52 % Mean Corpuscular Volume 91.3 80-100 fL Mean Corpuscular Hemoglobin 28.7 25-34 pg Mean Corpuscular Hemoglobin Concent 31.5 32-36 g/dl Platelet Count 127 130-400 K/uL Mean Platelet Volume 10.3 7.4-10.4 fL Neutrophils (%) (Auto) 72.7 % Lymphocytes (%) (Auto) 15.3 % Monocytes (%) (Auto) 3.5 % Eosinophils (%) (Auto) 0.2 % Basophils (%) (Auto) 0.2 % Neutrophils # (Auto) 3.70 1.4-6.5 K/uL Lymphocytes # (Auto) 0.78 1.2-3.4 K/uL Monocytes # (Auto) 0.18 0.11-0.59 K/uL Eosinophils # (Auto) 0.01 0-0.5 K/uL Basophils # (Auto) 0.01 0-0.2 K/uL RDW Standard Deviation 65.7 36.4-46.3 fL RDW Coefficient of Variation 19.9 11.5-14.5 % Immature Granulocyte % (Auto) 8.1 % Immature Granulocyte # (Auto) 0.41 0.00-0.02 K/uL Polychromasia 1+ Anisocytosis PRESENT Stomatocytes 1+ Sodium Level 137 136-145 mmol/L Potassium Level 3.8 3.5-5.1 mmol/L Chloride Level 103 98-107 mmol/L Carbon Dioxide Level 20 21-32 mmol/L Anion Gap 14.0 3-11 mmol/L Blood Urea Nitrogen 3 7-18 mg/dl Creatinine 0.82 0.60-1.40 mg/dl Est Creatinine Clear Calc Drug Dose 158.9 ml/min Estimated GFR () 133.7 Estimated GFR (Non- 115.4 BUN/Creatinine Ratio 4.0 10-20 Random Glucose 84 70-99 mg/dl Lactic Acid Level 0.7 0.4-2.0 mmol/L Calcium Level 8.4 8.5-10.1 mg/dl Total Bilirubin 10.1 0.2-1 mg/dl Aspartate Amino Transf (AST/SGOT) 201 15-37 U/L Alanine Aminotransferase (ALT/SGPT) 137 12-78 U/L Alkaline Phosphatase 124 45-117 U/L Total Protein 6.2 6.4-8.2 gm/dl Albumin 2.8 3.4-5.0 gm/dl Globulin 3.4 2.5-4.0 gm/dl Albumin/Globulin Ratio 0.8 0.9-2 Prothrombin Time 11.4 9.0-12.0 SECONDS Prothromb Time International Ratio 1.1 0.9-1.1 Assessment & Plan High Tbili and direct bili, Biliary obstruction? Autoimmune hepatitis? No evidence of ductal dilatation or ductal filling defects on MRCP - biliary obstruction unlikely. ARNOLDO previously elevated - Repeat ARNOLDO, anti-smooth muscle antibody and IgG level per GI to further assess for possible autoimmune Hepatitis, started on IV Solu-medrol. No acute surgical intervention required at this time. Continue medical management as directed. Findings discussed with Dr. Hyaes. Will continue to follow. 03/11/17- pt examined- gb looks relatively normal on studies Dr Aguilar's plan noted- will cont to follow Dr Hayes 03/12/17- Hida suggests Hepatic dysfunction- no evidence of cystic duct obstruction, relatively normal appearing gb on CT and U/S. Covering for Dr Jacobs- pt does not req urgent surgery- will discuss need for cholecystectomy with him possible liver bx. High Tbili and direct bili, Biliary obstruction? Autoimmune hepatitis? No evidence of ductal dilatation or ductal filling defects on MRCP - biliary obstruction unlikely. ARNOLDO previously elevated - Repeat ARNOLDO, anti-smooth muscle antibody and IgG level per GI to further assess for possible autoimmune Hepatitis, started on IV Solu-medrol. No acute surgical intervention required at this time. Continue medical management as directed. Findings discussed with Dr. Hayes. Will continue to follow. 03/11/17- pt examined- gb looks relatively normal on studies Dr Aguilar's plan noted- will cont to follow Dr Hayes
[2017-03-12 07:17] VITALS: BP 126/85; PULSE 93; TEMP 36.6; O2SAT 96
[2017-03-12] MEDS: FLUTICASONE/SALMETEROL 250/50 (ADVAIR) 14 PUFF/1 INHALER INH SCH ×2 (08:17→20:37)
[2017-03-12] MEDS: METHYLPREDNISOLONE IV 20 MG in SYRINGE 0 ML IV SCH ×2 (08:18→20:37)
[2017-03-12] MEDS: PANTOprazole SOD 40 MG TAB PO SCH (08:18)
[2017-03-12 10:21] LABS: HEMATOCRIT 30.8 % (42-52); HEMOGLOBIN 9.8 g/dL (14.0-18.0); MEAN CELL VOLUME 91.7 fL (80-100); MEAN CORPUSCULAR HEMOGLOBIN 29.2 pg (25-34); MEAN CORPUSCULAR HGB CONC 31.8 g/dl (32-36); MEAN PLATELET VOLUME 10.5 fL (7.4-10.4); NUCLEATED RED BLOOD CELL ABS 0.03 K/uL (0-0); PLATELET COUNT 154 K/uL (130-400); RED CELL DISTRIBUTION WIDTH CV 21.3 % (11.5-14.5); WHITE BLOOD COUNT 4.27 K/uL (4.8-10.8)
--- NOTE | 2017-03-12 10:57 | GASTROENTEROLOGY PROGRESS NOTE ---
DATE: 03/12/2017 SUBJECTIVE: Chart reviewed, patient examined. The patient is feeling about the same, perhaps slightly better. There are no laboratory values pending for today and these will need to be ordered for tracking of his liver panel. I spoke with Dr. De Jesus from radiology shuttle preparation supervisor yesterday regarding review of all of the patient's imaging studies. Except for a significant hepatomegaly with at dense fatty component it, there was a question of some delay on the prior HIDA scan from December during the initial presentation of this ongoing issue. This was repeated yesterday and although there was some delay in the blood pool that could suggest hepatic dysfunction. The gallbladder seemed to take up tracer properly without evidence of acute cholecystitis. There may have been some delay in the contents of the Radiotracer hitting the duodenum and raised the possibility of spasm. However, one would imagine that with this ongoing level of spasm or obstruction, would have eventually led to a biliary dilation over the last couple of months, which has not occurred. There is no suggestion of any portal vein or hepatic vein thrombosis and although the vessels in the liver are somewhat smaller in size, this may be disproportionate. This may reflect the disparity between normal size and the patient's significant hepatomegaly. It is not likely that the vascular process is driving this. Most of the blood tests are pending at this time to assess for autoimmune hepatitis. MEDICATIONS: Currently include methylprednisolone 20 mg b.i.d., folic acid, pantoprazole 40 mg daily, morphine, amitriptyline, albuterol, Zofran, and Ambien. REVIEW OF SYSTEMS: Otherwise noncontributory based on a 13-point exam except for mentioned above. OBJECTIVE: VITAL SIGNS: Today, the patient is afebrile 36.6, blood pressure 126/85, respirations 16, heart rate 96% on room air. GENERAL: The patient is awake, alert and oriented x3. He is resting in bed comfortably, although with any movement and certainly with palpation on physical examination, there was exquisite tenderness in the right upper abdomen. This does not occur over the costal margin. The patient's sclerae are anicteric. Oral mucosa is moist. LUNGS: Clear to auscultation without rales, rhonchi or wheezes. ABDOMEN: Soft and moderately tender with minimal palpation in the right upper quadrant down to the level of the umbilicus distally, but no tenderness in the right lower quadrant or on the left side of the abdomen. EXTREMITIES: Without clubbing, cyanosis or edema. RECTAL: Deferred. IMPRESSION AND PLAN: At the present time, the source of the patient's intense fatty liver is unclear along with his hepatomegaly and abnormal liver test. There does not appear to be a dysfunctional gallbladder or evidence of biliary obstruction based on all of the imaging studies reviewed from both December and this hospitalization. An autoimmune hepatitis remains a possibility. We will continue the prednisone at the current dose and await the results of the other markers to see if these would suggest and corroborate autoimmune hepatitis as a cause. Ultimately, I believe a liver biopsy would be prudent and we will need to coordinate this with radiology. The patient's INR yesterday was normal at 1.1, so synthetic function appears to be reasonable, although his albumin level is low at 2.8. The lipid panel that was ordered yesterday appears to have been cancelled for reasons unclear and we will reorder this today along with liver panel and CBC. March 10 lipase was normal at 372. If LFTs can show a pattern of continued rise or if there is a concern about performing a liver biopsy percutaneously, then it may be prudent to transfer the patient to [place] for continued care and consideration of transjugular liver biopsy. All questions answered and we will continue to follow. YANIRAD
[2017-03-12 11:23] LABS: ALBUMIN 2.8 gm/dl (3.4-5.0); TOTAL PROTEIN 6.1 gm/dl (6.4-8.2)
--- NOTE | 2017-03-12 12:39 | Progress Note ---
Subjective Date of Service: Mar 12, 2017. Subjective Patient reports tolerating lunch however he did have an episode of vomting described below Patient vomited Bile and food particles 2 HOURS AGO (10:30) Patient states the amount was likely a cup.No blood in vomit. Patient reports that his abd. pain has not improved. Patient also reports having a headache and back pain which are chronic. Problem List Medical Problems: (1) Acute renal failure Status: Acute (2) Anemia Status: Acute (3) Back pain Status: Acute (4) Bilateral flank pain Status: Acute (5) Biliary obstruction Status: Acute (6) Contusion of foot Status: Acute (7) Elevated bilirubin Status: Acute (8) Flank pain Status: Acute (9) Headache Status: Acute (10) Hematuria Status: Acute (11) Hematuria Status: Acute (12) Hypertension Status: Acute (13) Hypokalemia Status: Acute (14) Hypokalemia Status: Acute (15) Hypomagnesemia Status: Acute (16) Lumbar back pain Status: Acute (17) UTI (urinary tract infection) Status: Acute (18) Vomiting Status: Acute Review of Systems Constitutional: No fever, No chills Eyes: No worsening of vision ENT: No hearing loss Respiratory: No cough Cardiac: No chest pain Abdomen: + pain, + nausea, + vomiting Musculoskeletal: + joint pain, + muscle pain Neurologic: No memory loss Psychiatric: No depression symptoms Heme: No abnormal bleeding/bruising Endo: No fatigue Skin: + color change (jaundiced), No rash, No itch Current Inpatient Medications Medications (Trade) Dose Ordered Sig/Reena Route Start Time Stop Time Status Last Admin Dose Admin Albuterol (Ventolin Hfa Inhaler) 2 puffs Q6H PRN INH 03/08/17 20:45 04/07/17 20:44 Amitriptyline HCl (Elavil Tab) 50 mg HS PO 03/08/17 21:00 04/07/17 20:59 03/12/17 20:37 50 MG Salmeterol Xinafoate/ Fluticasone (Advair Diskus 250/50 Inh) 2 puff BID INH 03/08/17 21:00 04/07/17 20:59 03/12/17 20:37 2 PUFF Folic Acid (Folvite Tab) 1 mg QAM PO 03/09/17 09:00 04/08/17 08:59 03/12/17 08:18 1 MG Pantoprazole Sodium (Protonix Tab) 40 mg DAILY PO 03/09/17 09:00 04/08/17 08:59 03/12/17 08:18 40 MG Zolpidem Tartrate (Ambien Tab) 5 mg HSZ PRN PO 03/08/17 20:45 04/07/17 20:44 Ondansetron HCl (Zofran Inj) 4 mg Q6H PRN IV 03/08/17 20:45 04/07/17 20:44 Morphine Sulfate (MoRPHine SULFATE INJ) 4 mg Q4H PRN IV 03/08/17 22:45 03/22/17 22:44 03/13/17 05:20 4 MG Potassium Chloride/Sodium Chloride 1,000 ml @ 100 mls/hr Q10H IV 03/10/17 18:00 04/09/17 17:59 03/13/17 05:20 100 MLS/HR Methylprednisolone Sodium Succinate 20 mg/Syringe 0.32 ml @ 1.5 mls/min BID IV 03/10/17 21:00 04/09/17 20:59 03/12/17 20:37 1.5 MLS/MIN Objective Vital Signs Date Time Temp Pulse Resp B/P (MAP) Pulse Ox O2 Delivery O2 Flow Rate FiO2 03/12/17 07:30 Room Air 03/12/17 07:17 36.6 93 16 126/85 (99) 96 03/12/17 00:15 Room Air 03/11/17 23:18 36.4 93 16 148/90 (109) 97 Room Air 03/11/17 17:36 104 96 Room Air 03/11/17 17:30 Room Air 03/11/17 15:15 36.7 112 18 148/86 (106) 99 Room Air Physical Exam Comments: General Appearance: WD/WN, no apparent distress, jaundiced Eyes: EOMI, + abnormal sclerae exam (juandiced) ENT: normal ENT inspection Neck: supple, no adenopathy Respiratory/Chest: chest non-tender, lungs clear, normal breath sounds Cardiovascular: regular rate, rhythm, no edema Abdomen: soft (no rebound), + tenderness (in epigastric and RUQ.) Extremities: normal range of motion Skin: normal color Lymphatic: no adenopathy Laboratory Results Last 24 Hours Test 03/12/17 10:00 White Blood Count 4.27 K/uL Red Blood Count 3.36 M/uL Hemoglobin 9.8 g/dL Hematocrit 30.8 % Mean Corpuscular Volume 91.7 fL Mean Corpuscular Hemoglobin 29.2 pg Mean Corpuscular Hemoglobin Concent 31.8 g/dl RDW Standard Deviation 69.0 fL RDW Coefficient of Variation 21.3 % Platelet Count 154 K/uL Mean Platelet Volume 10.5 fL Nucleated RBC Absolute Count (auto) 0.03 K/uL Nucleated Red Blood Cells % 0.8 % Total Bilirubin 9.7 mg/dl Direct Bilirubin 7.9 mg/dl Aspartate Amino Transf (AST/SGOT) 168 U/L Alanine Aminotransferase (ALT/SGPT) 128 U/L Alkaline Phosphatase 114 U/L Total Protein 6.1 gm/dl Albumin 2.8 gm/dl Assessment and Plan 32 y/o M Hx HTN, bipolar disease, asthma, low back pain, RUQ pain with LFT abnormalities. Pt was admitted for RUQ pain and elevated LFTs including a Tbili of 4,7 12/23. No etiology was confirmed on extensive workup which included EGD and MRCP. The bilirubin gradually normalized without intervention and the pt was DCd. He presents with recurrence of RUQ pain, nausea and vomiting x 1 week. . 1) Jaundice, RUQ pain - elevated LFTs - Initial labs reveal transaminitis and a bilirubin of 7.5 in addition to CHEKO, hypoK, hypoMg. Billirubin did peak at 10.1 yesterday, it is trending down this AM at 9.7 The pt continues to be visibly jaundice. An US obtained in the ER did not show a dilated CBD or evidence of biliary obstruction MRCP showed no signs of biliary obstruction HIDA scan was done. It showed normal gallbladder. There was an issue with delayed reuptake in liver which likely points to liver dysfunction. He does show signs of fatty liver on other imaging. HIDA scan also showed Delayed visualization of small bowel activity, a nonspecific finding which can be due to spasm, or sphincter dysfunction. GI saw patient and stated that he may benefit from liver biopsy Patient is empirically on IV steroids will place patient on a clear liquid diet. Analgesics, antiemetics will provided PRN. LFTs continue to be elevated Appreciate GI and surgery input. Monday will determine plan, if liver biopsy can be done in House. If not will need to be sent to tertiary center. 2) CHEKO - dehydration - resolved 3) HypoK, HypoMg - resolved 4) Bipolar - cont Amitriptyline 5) Lipase is increased - improved 6) HTN - will resume isiah-inh tomorrow. Spent 25 minutes on the management of this case. Continued [facility] stay due to: abnormal vital signs, inadequate oral pain control , other (abd. pain)
[2017-03-12 15:00] VITALS: BP 146/93; PULSE 96; TEMP 36.6; O2SAT 99
[2017-03-12 16:30] VITALS: BP 148/99; PULSE 83
[2017-03-12] MEDS: AMITRIPTYLINE HCL 50 MG TAB PO SCH (20:37)
[2017-03-12 23:17] VITALS: BP 137/83; PULSE 90; TEMP 36.6; O2SAT 96
[2017-03-13] VITALS (9 sets, daily range): BP systolic 135–175; BP diastolic 96–134; PULSE 70–123; TEMP 36.6–37.1; O2SAT 94–99
[2017-03-13] MEDS: MoRPHine SULFATE 4 MG/ML 1 ML CARP\\VIAL IV PRN ×6 (01:36→21:42)
[2017-03-13] MEDS: NSS + 20MEQ KCL 1000ML 1,000 ML IV SCH ×2 (05:20→15:47)
[2017-03-13] MEDS ORDERED: HydrALAZINE HCL 20 MG/ML VIAL IV. PRN (08:30)
[2017-03-13] MEDS: METHYLPREDNISOLONE IV 20 MG in SYRINGE 0 ML IV SCH ×2 (08:46→20:37)
[2017-03-13] MEDS: FLUTICASONE/SALMETEROL 250/50 (ADVAIR) 14 PUFF/1 INHALER INH SCH ×2 (08:47→20:37)
[2017-03-13] MEDS: PANTOprazole SOD 40 MG TAB PO SCH (08:47)
[2017-03-13] MEDS: LISINOPRIL 10 MG TAB PO SCH (09:31)
[2017-03-13 12:29] LABS: TOTAL PROTEIN 6.3 gm/dl (6.4-8.2)
[2017-03-13] MEDS ORDERED: HydrALAZINE HCL 20 MG/ML VIAL IV. STA (12:50)
--- NOTE | 2017-03-13 13:02 | Surgery Progress Note ---
Surgery Progress Note Date of Service Mar 13, 2017. Subjective pt is still have RUQ pain, pt denies fever, no diarrhea, (T) bili 9.4, HIDA scan- IMPRESSION: 1. No evidence of acute or chronic cholecystitis. Normal visualization of gallbladder activity. 2. Persistent blood pool activity at 60 minutes which is longer than expected. This may be related to hepatic dysfunction. 3. Delayed visualization of small bowel activity, a nonspecific finding which can be due to spasm, hepatic dysfunction, sphincter dysfunction or partial Objective Vital Signs: Date Time Temp Pulse Resp B/P (MAP) Pulse Ox O2 Delivery O2 Flow Rate FiO2 03/13/17 12:16 37.0 70 18 169/133 (145) 99 Room Air 03/13/17 09:25 71 149/99 (116) 03/13/17 08:40 71 174/134 (147) 03/13/17 08:21 36.6 18 175/115 (135) 99 Room Air 03/13/17 07:30 99 Room Air 03/13/17 00:15 Room Air 03/12/17 23:17 36.6 90 16 137/83 (101) 96 Room Air 03/12/17 16:30 83 148/99 (115) 03/12/17 16:15 Room Air 03/12/17 15:00 36.6 96 18 146/93 (110) 99 Room Air General Appearance: WD/WN, no apparent distress Head: normocephalic Neck: supple, no JVD Respiratory/Chest: chest non-tender, lungs clear Cardiovascular: regular rate, rhythm, no edema, no gallop, no JVD, no murmur Abdomen: normal bowel sounds, soft, no organomegaly, + tenderness (RUQ, no rebound pain) Extremities: normal range of motion, non-tender, normal inspection Laboratory Results: Results Past 24 Hours Test 03/13/17 11:37 Range/Units Total Bilirubin 9.4 0.2-1 mg/dl Direct Bilirubin 7.4 0-0.2 mg/dl Aspartate Amino Transf (AST/SGOT) 189 15-37 U/L Alanine Aminotransferase (ALT/SGPT) 146 12-78 U/L Alkaline Phosphatase 125 45-117 U/L Total Protein 6.3 6.4-8.2 gm/dl Albumin 3.0 3.4-5.0 gm/dl Assessment & Plan base on high (T) bilirubin, and direct bilirubin, most likely Biliary obstruction, pt needs ERCP first, cancer cholecystectomy, if there is no OR room available for ERCP, pt should transfer to higher level care, pt and his Mom understood, I answered all questions, correct low K, po K-dur 20 MEQ now, then 10 MEQ bid, will F/U 03/13/2017, GI recommend to liver biopsy I recommend to transfer higher level care, hepatic surgeon to do liver biopsy, D /W benefits, risks and alternatives transfer, pt and his Mom understood, they agree with transfer, sign off please call me, if any questions, base on high (T) bilirubin, and direct bilirubin, most likely Biliary obstruction, pt needs ERCP first, cancer cholecystectomy, if there is no OR room available for ERCP, pt should transfer to higher level care, pt and his Mom understood, I answered all questions, correct low K, po K-dur 20 MEQ now, then 10 MEQ bid, will F/U
--- NOTE | 2017-03-13 17:20 | Progress Note ---
Subjective Date of Service: Mar 13, 2017. Subjective Pt evaluation today including: conversation w/ patient, conversation w/ family (mother), physical exam, lab review, review of studies, conversation w/ fundraising consultant, review of inpatient medication list Pain: increased RUQ pain today PO Intake: clears Voiding: no voiding problems patient with increased pain today, better with morphine reviewed LFT, consistently elevated but overall not going up, bili at 9.4 today reviewed all the prior imaging and recommendations from specialists Dr. Jacobs recommending transfer to tertiary care if ERCP cannot be done, recommends open liver biopsy, cancer cholecystectomy Problem List Medical Problems: (1) Acute renal failure Status: Acute (2) Anemia Status: Acute (3) Back pain Status: Acute (4) Bilateral flank pain Status: Acute (5) Biliary obstruction Status: Acute (6) Contusion of foot Status: Acute (7) Elevated bilirubin Status: Acute (8) Flank pain Status: Acute (9) Headache Status: Acute (10) Hematuria Status: Acute (11) Hematuria Status: Acute (12) Hypertension Status: Acute (13) Hypokalemia Status: Acute (14) Hypokalemia Status: Acute (15) Hypomagnesemia Status: Acute (16) Lumbar back pain Status: Acute (17) UTI (urinary tract infection) Status: Acute (18) Vomiting Status: Acute Review of Systems Abdomen: + pain, + nausea, + vomiting All Other Systems: Reviewed and Negative Medications Current Inpatient Medications Medications (Trade) Dose Ordered Sig/Reena Route Start Time Stop Time Status Last Admin Dose Admin Albuterol (Ventolin Hfa Inhaler) 2 puffs Q6H PRN INH 03/08/17 20:45 04/07/17 20:44 Amitriptyline HCl (Elavil Tab) 50 mg HS PO 03/08/17 21:00 04/07/17 20:59 03/12/17 20:37 50 MG Salmeterol Xinafoate/ Fluticasone (Advair Diskus 250/50 Inh) 2 puff BID INH 03/08/17 21:00 04/07/17 20:59 03/13/17 08:47 2 PUFF Folic Acid (Folvite Tab) 1 mg QAM PO 03/09/17 09:00 04/08/17 08:59 03/13/17 08:46 1 MG Pantoprazole Sodium (Protonix Tab) 40 mg DAILY PO 03/09/17 09:00 04/08/17 08:59 03/13/17 08:47 40 MG Zolpidem Tartrate (Ambien Tab) 5 mg HSZ PRN PO 03/08/17 20:45 04/07/17 20:44 Ondansetron HCl (Zofran Inj) 4 mg Q6H PRN IV 03/08/17 20:45 04/07/17 20:44 Morphine Sulfate (MoRPHine SULFATE INJ) 4 mg Q4H PRN IV 03/08/17 22:45 03/22/17 22:44 03/13/17 13:35 4 MG Potassium Chloride/Sodium Chloride 1,000 ml @ 100 mls/hr Q10H IV 03/10/17 18:00 04/09/17 17:59 03/13/17 15:47 100 MLS/HR Methylprednisolone Sodium Succinate 20 mg/Syringe 0.32 ml @ 1.5 mls/min BID IV 03/10/17 21:00 04/09/17 20:59 03/13/17 08:46 1.5 MLS/MIN Lisinopril (Zestril Tab) 10 mg QAM PO 03/13/17 09:00 04/12/17 08:59 03/13/17 09:31 10 MG Hydralazine HCl (HydrALAZINE INJ) 10 mg Q4 PRN IV. 03/13/17 13:00 04/12/17 08:29 Objective Vital Signs Date Time Temp Pulse Resp B/P (MAP) Pulse Ox O2 Delivery O2 Flow Rate FiO2 03/13/17 16:20 Room Air 03/13/17 15:02 37.1 117 20 135/96 (109) 97 Room Air 03/13/17 12:16 37.0 70 18 169/133 (145) 99 Room Air 03/13/17 09:25 71 149/99 (116) 03/13/17 08:40 71 174/134 (147) 03/13/17 08:21 36.6 18 175/115 (135) 99 Room Air 03/13/17 07:30 99 Room Air 03/13/17 00:15 Room Air 03/12/17 23:17 36.6 90 16 137/83 (101) 96 Room Air Physical Exam General Appearance: WD/WN, no apparent distress Eyes: + abnormal sclerae exam (icterus) ENT: normal ENT inspection, hearing grossly normal, pharynx normal Neck: supple, no adenopathy, no JVD, trachea midline Respiratory/Chest: chest non-tender, lungs clear, normal breath sounds, no respiratory distress, no accessory muscle use Cardiovascular: regular rate, rhythm, no edema, no gallop, no JVD, no murmur Abdomen: normal bowel sounds, soft, no organomegaly, + tenderness (RUQ) Extremities: normal range of motion, non-tender, normal inspection, no pedal edema, no calf tenderness, pelvis stable Neurologic/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 Pt was admitted for RUQ pain and elevated LFTs including a Tbili of 4,7 12/23. No etiology was confirmed on extensive workup which included EGD and MRCP. The bilirubin gradually normalized without intervention and the pt was DCd. He presents with recurrence of RUQ pain, nausea and vomiting x 1 week. . 1) Jaundice, RUQ pain - elevated bilirubin Initial labs reveal transaminitis and a bilirubin of 7.5 in addition to CHEKO, hypoK, hypoMg. Billirubin did peaked at 10.1 yesterday, it is trending down at 9.4 Work up thus far... US obtained in the ER did not show a dilated CBD or evidence of biliary obstruction MRCP showed no signs of biliary obstruction HIDA scan There was an issue with delayed reuptake in liver which likely points to liver dysfunction. patient needs biopsy, will wait to see if GI can perform ERCP here patient and his mom resistant to transfer but understand it may be necessary repeat CBC, CMP, Mag and INR tomorrow AM clears for now, NPO after midnight if ERCP needed 2) CHEKO - dehydration - resolved 3) HypoK, HypoMg - resolved 4) Bipolar - cont Amitriptyline 5) Lipase is increased - improved 6) HTN - resume Lisinopril, use Hydralazine PRN Continued [facility] stay due to: abnormal vital signs, inadequate oral pain control , other (abd. pain)
--- NOTE | 2017-03-13 17:52 | GASTROENTEROLOGY PROGRESS NOTE ---
DATE: 03/13/2017 GASTROENTEROLOGY INPATIENT PROGRESS NOTE Chart reviewed, patient examined. I spoke with patient and his mother at length today. The patient continues to experience abdominal pain. No changes in his liver enzymes as of today. He continues to have right upper quadrant pain. Has been tolerating clear liquids well and ambulating. The patient has not had any fever or shaking chills, and continues on Solu-Medrol 20 mg twice daily in addition to hydralazine, lisinopril, potassium, Elavil, Ambien, Zofran. PHYSICAL EXAMINATION: VITAL SIGNS: Afebrile 135/96, respirations 20, heart rate 117, 37.1, 97% on room air. GENERAL: The patient is awake, alert and oriented x3. HEENT: Sclerae are icteric. Oral mucosa moist. HEART: Normal S1, S2. LUNGS: Clear to auscultation. ABDOMEN: Tender in right upper quadrant without rebound or guarding. Abdomen is soft, flat without evidence of ascites or shifting dullness. EXTREMITIES: Without clubbing, cyanosis or edema. There are positive bowel sounds. RECTAL: Deferred. IMPRESSION AND PLAN: The source of patient's continued LFT elevations that today include bilirubin 9.4, direct 7.4, AST up to 189, ALT up 146, alkaline phosphatase is up 125, albumin is slightly higher at 3.0 today, hemoglobin A1c is 5. All of patient's markers including SPEP, ARNOLDO, smooth muscle antibody, and liver kidney microsomal antibody are all pending. Ceruloplasmin also appears to be pending. I spoke with patient and his mother at length today. Because of transportation and social reasons, patient and his mother would prefer to stay locally for any workup including liver biopsy. I spoke with the radiologist today and again the most prominent aspect of patient's imaging studies today are the hepatomegaly with intensely bright signal consistent with fatty liver. The patient and his mother are agreeable to pursuing liver biopsy here and we will tentatively plan for liver biopsy through radiology by either CT and ultrasound guidance. Orders have been placed. This will be to assess for fatty liver, cirrhosis, Hernán disease, hemochromatosis, autoimmune hepatitis, possibly lymphoma, or other infiltrative disorder. Await the results of other markers. The only marker that may suggest autoimmune hepatitis at the present time includes a mildly positive ARNOLDO of 1-180, that is homogeneous in pattern. The IgG level was normal. The patient does not report any neurologic history that would suggest Hernán disease, but it may be reasonable for patient to have an ophthalmology examination to exclude Luis Enrique-Gallito Rings as well as a 24-hour urinary copper excretion. Ceruloplasmin had been ordered, but is not back yet as are many other markers that had been ordered. We will continue to follow with you. At the present time, we will not adjust the Solu-Medrol, although this may need a slight adjustment upward perhaps to 30 mg q. 12. All questions answered. Again, I did inform them that we may be reaching limitations of what can be offered at this facility, but they are quite adamant about staying locally if at all possible. Hopefully, a liver biopsy if achievable at [facility] and will provide better understanding of patient's current liver process. [place]
[2017-03-13] MEDS: AMITRIPTYLINE HCL 50 MG TAB PO SCH (20:37)
[2017-03-13] MEDS: HydrALAZINE HCL 20 MG/ML VIAL IV. PRN (23:18)
[2017-03-14] VITALS (11 sets, daily range): BP systolic 130–166; BP diastolic 85–113; PULSE 88–113; TEMP 36.6–37.1; O2SAT 95–98
[2017-03-14] MEDS: NSS + 20MEQ KCL 1000ML 1,000 ML IV SCH ×3 (01:15→21:29)
[2017-03-14] MEDS: MoRPHine SULFATE 4 MG/ML 1 ML CARP\\VIAL IV PRN ×3 (02:14→18:29)
[2017-03-14] MEDS: HydrALAZINE HCL 20 MG/ML VIAL IV. PRN ×3 (03:32→16:08)
[2017-03-14 07:11] LABS: ANA SCREEN TC 249X POSITIVE (NEGATIVE)
[2017-03-14 07:20] LABS: BASO % 0.2 %; BASO ABS # 0.01 K/uL (0-0.2); EOS % 0.2 %; EOS ABS # 0.01 K/uL (0-0.5); HEMATOCRIT 31.5 % (42-52); IG# 0.16 K/uL (0.00-0.02); LYMPH % 29.1 %; LYMPH ABS # 1.43 K/uL (1.2-3.4); MEAN CELL VOLUME 91.8 fL (80-100); MEAN CORPUSCULAR HEMOGLOBIN 29.2 pg (25-34); MEAN CORPUSCULAR HGB CONC 31.7 g/dl (32-36); MEAN PLATELET VOLUME 10.7 fL (7.4-10.4); MONO % 8.9 %; MONO ABS # 0.44 K/uL (0.11-0.59); NEUT % 58.3 %; NEUT ABS # 2.87 K/uL (1.4-6.5); PLATELET COUNT 184 K/uL (130-400); RED CELL DISTRIBUTION WIDTH CV 22.5 % (11.5-14.5); RED CELL DISTRIBUTION WIDTH SD 73.4 fL (36.4-46.3); WHITE BLOOD COUNT 4.92 K/uL (4.8-10.8)
[2017-03-14 07:59] LABS: ALBUMIN 2.7 gm/dl (3.4-5.0); CALCIUM 8.8 mg/dl (8.5-10.1); CREATININE 0.82 mg/dl (0.60-1.40); POTASSIUM 3.9 mmol/L (3.5-5.1); TOTAL PROTEIN 6.1 gm/dl (6.4-8.2)
[2017-03-14] MEDS ORDERED: MAGNESIUM SULFATE 1GM / D5W 1 GM in PREMIXED IN D5W 100 ML IV SCH (08:45)
[2017-03-14] MEDS: FLUTICASONE/SALMETEROL 250/50 (ADVAIR) 14 PUFF/1 INHALER INH SCH ×2 (08:55→21:01)
[2017-03-14] MEDS: METHYLPREDNISOLONE IV 20 MG in SYRINGE 0 ML IV SCH ×2 (08:56→21:01)
[2017-03-14] MEDS: PANTOprazole SOD 40 MG TAB PO SCH (09:00)
[2017-03-14] MEDS: LISINOPRIL 10 MG TAB PO SCH ×2 (09:00→14:17)
--- NOTE | 2017-03-14 09:32 | GASTROENTEROLOGY PROGRESS NOTE ---
DATE: 03/14/2017 Chart reviewed. The patient examined. The patient overall doing about the same. No significant abdominal pain although right upper quadrant pain persists. 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 He is scheduled for a liver biopsy today. This has been discussed with several radiologists yesterday and again this morning as to his intention hopefully this will be accomplished today. He continues on Solu-Medrol 20 mg b.i.d. as well as his other chronic medications including hydralazine, lisinopril, folic acid, pantoprazole 40 mg daily, amitriptyline 50 mg at bedtime. His laboratory studies today show an actual decrease in his bilirubin down to 6.9 from 9.4 yesterday, direct 5.4, down from 7.4. AST is also declining at 155, ALT stable at 147, alk phos stable 123. Potassium 3.9, BUN and creatinine of 3 and 0.82. His blood sugar is 104. White count 4.9, hemoglobin 10.0 unstable, platelets are up to 184,000. INR today of 1.0. Serologies show again a positive ARNOLDO screen without a titer mentioned, titer is pending. Smooth muscle antibody is pending. Ceruloplasmin is slightly low at 17 (normal 18-36). This raises the possibility of copper overload state, although is marginally and is resolved. It may be reasonable to perform a 24-hour urinary copper. REVIEW OF SYSTEMS: Are otherwise noncontributory based on 13-point exam except for mentioned above. PHYSICAL EXAMINATION: VITAL SIGNS: Blood pressure 143/100, heart rate 88, respirations 16, and 98% on room air. GENERAL: The patient is awake, alert and oriented x3, sclerae are icteric perhaps less though than yesterday. HEENT: Oral mucosa moist. Normocephalic, atraumatic. NECK: Normal range of motion. LUNGS: Clear to auscultation. ABDOMEN: Soft. Again, tender in the right side of the abdomen below the right costal margin and extending down to the level of the umbilicus. The left side of the abdomen does not exam with any tenderness. There are positive bowel sounds. EXTREMITIES: Normal range of motion. Without edema. RECTAL: Deferred. IMPRESSION AND PLAN: We will order a 24-hour urinary copper collection and await liver biopsy today. The Solu-Medrol is in place and bilirubin seems to be declining at this time. Yesterday questioning revealed no neuropsychiatric abnormalities to suggest Hernán's disease. However, it may be reasonable for optimal to perform a Luis Enrique-Gallito ring assessment. There is again an elevation of ARNOLDO of unknown titter, although in December this was 1-80 in a homogenous pattern. All questions answered.
[2017-03-14] MEDS: HYDROmorphone INJ 1 MG/ML SYR IV PRN ×4 (11:24→23:50)
--- NOTE | 2017-03-14 13:28 | Progress Note ---
Subjective Date of Service: Mar 14, 2017. Subjective Pt evaluation today including: conversation w/ patient, physical exam, lab review, review of inpatient medication list Pain: moderate RUQ pain PO Intake: clears Voiding: no voiding problems patient is the same as yesterday, moderate pain no vomiting reviewed labs, total and direct bili actually going down, AST/ALT and alk phos the same appreciate note from Dr. Figueroa planning on biopsy today will collect ceruloplasmin/copper levels Problem List Medical Problems: (1) Acute renal failure Status: Acute (2) Anemia Status: Acute (3) Back pain Status: Acute (4) Bilateral flank pain Status: Acute (5) Biliary obstruction Status: Acute (6) Contusion of foot Status: Acute (7) Elevated bilirubin Status: Acute (8) Flank pain Status: Acute (9) Headache Status: Acute (10) Hematuria Status: Acute (11) Hematuria Status: Acute (12) Hypertension Status: Acute (13) Hypokalemia Status: Acute (14) Hypokalemia Status: Acute (15) Hypomagnesemia Status: Acute (16) Lumbar back pain Status: Acute (17) UTI (urinary tract infection) Status: Acute (18) Vomiting Status: Acute Review of Systems Abdomen: + pain (RUQ) All Other Systems: Reviewed and Negative Medications Current Inpatient Medications Medications (Trade) Dose Ordered Sig/Reena Route Start Time Stop Time Status Last Admin Dose Admin Albuterol (Ventolin Hfa Inhaler) 2 puffs Q6H PRN INH 03/08/17 20:45 04/07/17 20:44 Amitriptyline HCl (Elavil Tab) 50 mg HS PO 03/08/17 21:00 04/07/17 20:59 03/13/17 20:37 50 MG Salmeterol Xinafoate/ Fluticasone (Advair Diskus 250/50 Inh) 2 puff BID INH 03/08/17 21:00 04/07/17 20:59 03/14/17 08:55 2 PUFF Folic Acid (Folvite Tab) 1 mg QAM PO 03/09/17 09:00 04/08/17 08:59 03/13/17 08:46 1 MG Pantoprazole Sodium (Protonix Tab) 40 mg DAILY PO 03/09/17 09:00 04/08/17 08:59 03/13/17 08:47 40 MG Zolpidem Tartrate (Ambien Tab) 5 mg HSZ PRN PO 03/08/17 20:45 04/07/17 20:44 Ondansetron HCl (Zofran Inj) 4 mg Q6H PRN IV 03/08/17 20:45 04/07/17 20:44 Morphine Sulfate (MoRPHine SULFATE INJ) 4 mg Q4H PRN IV 03/08/17 22:45 03/22/17 22:44 03/14/17 02:14 4 MG Potassium Chloride/Sodium Chloride 1,000 ml @ 100 mls/hr Q10H IV 03/10/17 18:00 04/09/17 17:59 03/14/17 11:27 100 MLS/HR Methylprednisolone Sodium Succinate 20 mg/Syringe 0.32 ml @ 1.5 mls/min BID IV 03/10/17 21:00 04/09/17 20:59 03/14/17 08:56 1.5 MLS/MIN Lisinopril (Zestril Tab) 10 mg QAM PO 03/13/17 09:00 04/12/17 08:59 03/13/17 09:31 10 MG Hydralazine HCl (HydrALAZINE INJ) 10 mg Q4 PRN IV. 03/13/17 13:00 04/12/17 08:29 03/14/17 09:15 10 MG Hydromorphone HCl (Dilaudid Inj) 1 mg Q4 PRN IV 03/14/17 10:45 03/28/17 10:44 03/14/17 11:24 1 MG Objective Vital Signs Date Time Temp Pulse Resp B/P (MAP) Pulse Ox O2 Delivery O2 Flow Rate FiO2 03/14/17 09:12 156/113 (127) 03/14/17 07:34 36.6 88 16 143/100 (114) 98 Room Air 03/14/17 07:20 Room Air 03/14/17 03:32 102 16 156/112 (127) 03/13/17 23:15 Room Air 03/13/17 23:10 36.8 109 20 169/130 (143) 97 Room Air 175/134 (148) 03/13/17 20:47 102 97 Room Air 03/13/17 19:59 123 148/97 (114) 94 Room Air 03/13/17 16:20 Room Air 03/13/17 15:02 37.1 117 20 135/96 (109) 97 Room Air Physical Exam General Appearance: WD/WN, no apparent distress Eyes: normal inspection, EOMI, + abnormal sclerae exam (icterus) ENT: normal ENT inspection, hearing grossly normal, pharynx normal Neck: supple, no adenopathy, no JVD, trachea midline Respiratory/Chest: chest non-tender, lungs clear, normal breath sounds, no respiratory distress, no accessory muscle use Cardiovascular: regular rate, rhythm, no edema, no gallop, no JVD, no murmur Abdomen: normal bowel sounds, soft, no organomegaly, + tenderness (RUQ, no rebound or rigidity) Extremities: normal range of motion, non-tender, normal inspection, no pedal edema, no calf tenderness, pelvis stable 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, no motor/sensory deficits, alert, normal mood/affect, oriented x 3 Skin: warm/dry, no rash, + jaundice Lymphatic: no adenopathy Laboratory Results Last 24 Hours Test 03/14/17 06:54 03/14/17 09:29 White Blood Count 4.92 K/uL Red Blood Count 3.43 M/uL Hemoglobin 10.0 g/dL Hematocrit 31.5 % Mean Corpuscular Volume 91.8 fL Mean Corpuscular Hemoglobin 29.2 pg Mean Corpuscular Hemoglobin Concent 31.7 g/dl Platelet Count 184 K/uL Mean Platelet Volume 10.7 fL Neutrophils (%) (Auto) 58.3 % Lymphocytes (%) (Auto) 29.1 % Monocytes (%) (Auto) 8.9 % Eosinophils (%) (Auto) 0.2 % Basophils (%) (Auto) 0.2 % Neutrophils # (Auto) 2.87 K/uL Lymphocytes # (Auto) 1.43 K/uL Monocytes # (Auto) 0.44 K/uL Eosinophils # (Auto) 0.01 K/uL Basophils # (Auto) 0.01 K/uL RDW Standard Deviation 73.4 fL RDW Coefficient of Variation 22.5 % Immature Granulocyte % (Auto) 3.3 % Immature Granulocyte # (Auto) 0.16 K/uL Hypersegmented Polys 1+ Giant Platelets 1+ Hypochromasia PRESENT Microcytosis PRESENT Prothrombin Time 10.6 SECONDS Prothromb Time International Ratio 1.0 Sodium Level 139 mmol/L Potassium Level 3.9 mmol/L Chloride Level 105 mmol/L Carbon Dioxide Level 28 mmol/L Anion Gap 5.0 mmol/L Blood Urea Nitrogen 3 mg/dl Creatinine 0.82 mg/dl Est Creatinine Clear Calc Drug Dose 158.9 ml/min Estimated GFR () 133.7 Estimated GFR (Non- 115.4 BUN/Creatinine Ratio 4.0 Random Glucose 104 mg/dl Calcium Level 8.8 mg/dl Magnesium Level 1.5 mg/dl Total Bilirubin 6.9 mg/dl Direct Bilirubin 5.4 mg/dl Aspartate Amino Transf (AST/SGOT) 155 U/L Alanine Aminotransferase (ALT/SGPT) 147 U/L Alkaline Phosphatase 123 U/L Total Protein 6.1 gm/dl Albumin 2.7 gm/dl Assessment and Plan 32 y/o M Hx HTN, bipolar disease, asthma, low back pain, RUQ pain with LFT abnormalities. Pt was admitted for RUQ pain and elevated LFTs including a Tbili of 4,7 12/23. No etiology was confirmed on extensive workup which included EGD and MRCP. The bilirubin gradually normalized without intervention and the pt was DCd. He presents with recurrence of RUQ pain, nausea and vomiting x 1 week. . 1) Jaundice, RUQ pain - elevated bilirubin Initial labs reveal transaminitis and a bilirubin of 7.5 in addition to CHEKO, hypoK, hypoMg. Total and direct bilirubin trending down today, AST, ALT, Alk phos stable Work up thus far... US obtained in the ER did not show a dilated CBD or evidence of biliary obstruction MRCP showed no signs of biliary obstruction HIDA scan There was an issue with delayed reuptake in liver which likely points to liver dysfunction. ceruloplasmin slightly low, no neurologic deficits to suggest Copper metabolism issues patient needs biopsy, plan for biopsy today with radiology transfer to [place] has been discussed patient and his mother prefer to stay here at [facility] for work up 2) CHKEO - dehydration - resolved 3) HypoK, HypoMg - resolved 4) Bipolar - cont Amitriptyline 5) Lipase is increased - improved 6) HTN - resume Lisinopril, use Hydralazine PRN Continued [facility] stay due to: abnormal vital signs, inadequate oral pain control , other (abd. pain)
--- NOTE | 2017-03-14 14:06 | DIAGNOSTIC IMAGING REPORT ---
ULTRASOUND-GUIDED CORE BIOPSY LIVER CLINICAL HISTORY: Hepatitis. Biliary obstruction. Hepatic steatosis. COMPARISON STUDY: Abdominal CT dated 03/08/2017. PROCEDURE: The risks, benefits, and alternatives to the procedure were discussed with the patient. Written informed consent was obtained. The patient was placed supine in ultrasound, and a safe window for core biopsy in the right hepatic lobe was selected by ultrasound. The right upper quadrant of the abdomen was prepped and draped in the usual sterile fashion. The skin and soft tissues were anesthetized with 1% lidocaine. The liver was biopsied under ultrasound guidance with 1 pass utilizing a 19-gauge 2 cm core device. The specimen was submitted in formalin. The patient tolerated the procedure well and left the department in satisfactory condition. IMPRESSION: Completed core biopsy of the liver as above. Electronically signed by: Compa Ortez M.D. 03/14/2017 2:05 PM Dictated Date/Time: 03/14/2017 2:02 PM
--- NOTE | 2017-03-14 18:11 | Ophthalmology Consultation ---
Ophthalmology Consultation Date of Service: Mar 14, 2017. Requested By: [facility] History of Present Illness: 32 y/o admitted for elevated LFTs. CC: r/o KF rings Vision: unchanged Location (of CC): OU Quality/Severity: asymptomatic Duration: unknown Timing: recently Context: elevated LFTs/enlarged liver Associated Signs/Symptoms: none Modifying Factors: none No other eye complaints. Mood and Affect: normal Past Ocular History: Right Eye: 1. glasses Left Eye: 1. glasses Medications: see [facility] cc Near Card OD: 20/25 OS: 20/25 IOP: wnl by palpation VF: full to count fingers OU Motility: full OU External: The ocular adnexae are unremarkable. SLE: Lids/Lashes: wnl OU Conjunctiva/Sclera: +icterus OU Cornea: clear OU Anterior Chamber: deep and quiet OU Iris: normal OU; no NVI OU Lens: clear OU Dilated fundus exam OD: not performed Dilated fundus exam OS: no performed Assessment and Plan: 1. 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
[2017-03-14] MEDS: AMITRIPTYLINE HCL 50 MG TAB PO SCH (21:01)
[2017-03-15 03:41] VITALS: BP 126/78; PULSE 94; TEMP 36.7; O2SAT 96
[2017-03-15 07:32] VITALS: BP 141/89; PULSE 77; TEMP 36.6; O2SAT 98
[2017-03-15] MEDS: HYDROmorphone INJ 1 MG/ML SYR IV PRN ×4 (07:33→19:40)
[2017-03-15] MEDS: NSS + 20MEQ KCL 1000ML 1,000 ML IV SCH (07:37)
[2017-03-15] MEDS: METHYLPREDNISOLONE IV 20 MG in SYRINGE 0 ML IV SCH ×2 (08:40→20:53)
[2017-03-15] MEDS: FLUTICASONE/SALMETEROL 250/50 (ADVAIR) 14 PUFF/1 INHALER INH SCH ×2 (08:40→20:53)
[2017-03-15] MEDS: PANTOprazole SOD 40 MG TAB PO SCH (08:40)
[2017-03-15] MEDS: LISINOPRIL 10 MG TAB PO SCH (08:40)
[2017-03-15 09:54] LABS: ALBUMIN 3.2 gm/dl (3.4-5.0); TOTAL PROTEIN 6.6 gm/dl (6.4-8.2)
--- NOTE | 2017-03-15 11:31 | GASTROENTEROLOGY PROGRESS NOTE ---
DATE: 03/15/2017 Chart reviewed and the patient examined. The patient is with continued right upper quadrant pain. LFTs performed today show a slight increase in bilirubin. Transaminases essentially stable as his alkaline phosphatase. The patient underwent a liver biopsy yesterday. Results are pending at this time. He is also in the process of collecting 24-hour urine for copper. The patient had evaluation by ophthalmology. There is no evidence for Luis Enrique-Gallito ring on ocular exam. OBJECTIVE: VITAL SIGNS: Today afebrile at 36.6, blood pressure 141/89, respirations 18, pulse 77, and sats 98% on room air. GENERAL: The patient is awake, alert and oriented x3. HEENT: Sclerae icteric. Conjunctivae moist. Oral mucosa moist. HEART: Normal S1 and S2. LUNGS: Clear to auscultation. ABDOMEN: Soft. Tender in right upper quadrant without rebound or guarding. EXTREMITIES: Without clubbing, cyanosis or edema. RECTAL: Deferred at this time. IMPRESSION AND PLAN: 1. Await liver biopsy results and additional laboratory testing that is still pending at this time. Liver and kidney microsomal antibody was negative at less than 20 as his anti-smooth muscle antibody. ARNOLDO screen was positive and had been slightly positive in the past with 1:80 homogeneous pattern. Immunoelectrophoresis did not reveal any abnormal IgM, IgG, and IgA that would suggest monoclonal gammopathy. Serum IgG level was normal at 757. 2. The patient should continue on his Solu-Medrol along with his pantoprazole, amitriptyline, albuterol, Zofran as needed, hydralazine, and lisinopril. Further recommendations to follow. He would follow liver tests at least 3 times weekly. YANIRAD
[2017-03-15] MEDS: OXYCODONE HCL IR 5 MG TAB (IMMEDIATE RELEASE) PO PRN (13:41)
--- NOTE | 2017-03-15 14:50 | Progress Note ---
Subjective Date of Service: Mar 15, 2017. 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 w/ system sales consultant, review of inpatient medication list Pain: RUQ pain, slightly worse after biopsy PO Intake: tolerating regular food Voiding: no voiding problems patient same as yesterday labs reviewed, stable but still elevated LFT still with jaundice no pathology results back yet Problem List Medical Problems: (1) Acute renal failure Status: Acute (2) Anemia Status: Acute (3) Back pain Status: Acute (4) Bilateral flank pain Status: Acute (5) Biliary obstruction Status: Acute (6) Contusion of foot Status: Acute (7) Elevated bilirubin Status: Acute (8) Flank pain Status: Acute (9) Headache Status: Acute (10) Hematuria Status: Acute (11) Hematuria Status: Acute (12) Hypertension Status: Acute (13) Hypokalemia Status: Acute (14) Hypokalemia Status: Acute (15) Hypomagnesemia Status: Acute (16) Lumbar back pain Status: Acute (17) UTI (urinary tract infection) Status: Acute (18) Vomiting Status: Acute Review of Systems Abdomen: + pain All Other Systems: Reviewed and Negative Medications Current Inpatient Medications Medications (Trade) Dose Ordered Sig/Reena Route Start Time Stop Time Status Last Admin Dose Admin Albuterol (Ventolin Hfa Inhaler) 2 puffs Q6H PRN INH 03/08/17 20:45 04/07/17 20:44 Amitriptyline HCl (Elavil Tab) 50 mg HS PO 03/08/17 21:00 04/07/17 20:59 03/14/17 21:01 50 MG Salmeterol Xinafoate/ Fluticasone (Advair Diskus 250/50 Inh) 2 puff BID INH 03/08/17 21:00 04/07/17 20:59 03/15/17 08:40 2 PUFF Folic Acid (Folvite Tab) 1 mg QAM PO 03/09/17 09:00 04/08/17 08:59 03/15/17 08:40 1 MG Pantoprazole Sodium (Protonix Tab) 40 mg DAILY PO 03/09/17 09:00 04/08/17 08:59 03/15/17 08:40 40 MG Zolpidem Tartrate (Ambien Tab) 5 mg HSZ PRN PO 03/08/17 20:45 04/07/17 20:44 Ondansetron HCl (Zofran Inj) 4 mg Q6H PRN IV 03/08/17 20:45 04/07/17 20:44 Methylprednisolone Sodium Succinate 20 mg/Syringe 0.32 ml @ 1.5 mls/min BID IV 03/10/17 21:00 04/09/17 20:59 03/15/17 08:40 1.5 MLS/MIN Lisinopril (Zestril Tab) 10 mg QAM PO 03/13/17 09:00 04/12/17 08:59 03/15/17 08:40 10 MG Hydralazine HCl (HydrALAZINE INJ) 10 mg Q4 PRN IV. 03/13/17 13:00 04/12/17 08:29 03/14/17 16:08 10 MG Hydromorphone HCl (Dilaudid Inj) 1 mg Q4 PRN IV 03/14/17 10:45 03/28/17 10:44 03/15/17 11:46 1 MG Oxycodone HCl (Roxicodone Immediate Rel Tab) 5 mg Q4 PRN PO 03/15/17 13:15 03/29/17 13:14 03/15/17 13:41 5 MG Objective Vital Signs Date Time Temp Pulse Resp B/P (MAP) Pulse Ox O2 Delivery O2 Flow Rate FiO2 03/15/17 07:32 36.6 77 18 141/89 (106) 98 Room Air 03/15/17 07:15 Room Air 03/15/17 03:41 36.7 94 20 126/78 (94) 96 Room Air 03/14/17 23:45 Room Air 03/14/17 22:48 37.1 113 16 144/97 (113) 96 Room Air 03/14/17 19:19 36.8 113 18 144/95 (111) 97 Room Air 03/14/17 17:12 130/85 (100) 03/14/17 16:03 37.0 97 16 159/112 (128) 95 Room Air 03/14/17 15:40 Room Air 03/14/17 15:37 37.0 96 18 163/104 (123) 97 Room Air 03/14/17 15:10 36.9 100 20 165/105 (125) 97 Room Air Physical Exam General Appearance: WD/WN, no apparent distress Eyes: normal inspection, EOMI, + abnormal sclerae exam (icterus) ENT: normal ENT inspection, hearing grossly normal, pharynx normal Neck: supple, no adenopathy, no JVD, trachea midline Respiratory/Chest: chest non-tender, lungs clear, normal breath sounds, no respiratory distress, no accessory muscle use Cardiovascular: regular rate, rhythm, no edema, no gallop, no JVD, no murmur Abdomen: normal bowel sounds, soft, no organomegaly, + tenderness (RUQ) Extremities: normal range of motion, non-tender, normal inspection, no pedal edema, no calf tenderness, pelvis stable Neurologic/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 Pt was admitted for RUQ pain and elevated LFTs including a Tbili of 4,7 12/23. No etiology was confirmed on extensive workup which included EGD and MRCP. The bilirubin gradually normalized without intervention and the pt was DCd. He presents with recurrence of RUQ pain, nausea and vomiting x 1 week. . 1) Jaundice, RUQ pain - elevated bilirubin Initial labs reveal transaminitis and a bilirubin of 7.5 in addition to CHEKO, hypoK, hypoMg. Total and direct bilirubin remain elevated but stable, AST/ALT and alk phos slightly high but also stable INR normal Work up thus far... US obtained in the ER did not show a dilated CBD or evidence of biliary obstruction MRCP showed no signs of biliary obstruction HIDA scan There was an issue with delayed reuptake in liver which likely points to liver dysfunction. ceruloplasmin slightly low, no neurologic deficits to suggest Copper metabolism issues, no Martinez-Gallito rings on exam getting 24 hour copper collection US guided biopsy performed on 03/14, pathology pending transfer to [place] has been discussed patient and his mother prefer to stay here at [facility] for work up continue Solu Medrol to treat possible autoimmune hepatitis allow regular food today 2) CHEKO - dehydration - resolved 3) HypoK, HypoMg - resolved 4) Bipolar - cont Amitriptyline 5) Lipase is increased - improved 6) HTN - resume Lisinopril, use Hydralazine PRN Continued [facility] stay due to: abnormal vital signs, inadequate oral pain control , other (abd. pain)
[2017-03-15 15:21] VITALS: BP 151/104; PULSE 112; TEMP 37.1; O2SAT 97
[2017-03-15 20:20] VITALS: PULSE 97
[2017-03-15] MEDS: AMITRIPTYLINE HCL 50 MG TAB PO SCH (20:53)
[2017-03-15 22:52] VITALS: BP 145/92; PULSE 96; TEMP 36.7; O2SAT 98
[2017-03-16] MEDS: HYDROmorphone INJ 1 MG/ML SYR IV PRN (01:13)
[2017-03-16 07:45] VITALS: BP 138/86; PULSE 76; TEMP 36.7; O2SAT 98
[2017-03-16] MEDS: METHYLPREDNISOLONE IV 20 MG in SYRINGE 0 ML IV SCH ×2 (08:06→20:56)
[2017-03-16] MEDS: PANTOprazole SOD 40 MG TAB PO SCH (08:06)
[2017-03-16] MEDS: FLUTICASONE/SALMETEROL 250/50 (ADVAIR) 14 PUFF/1 INHALER INH SCH ×2 (08:06→20:55)
[2017-03-16] MEDS: OXYCODONE HCL IR 5 MG TAB (IMMEDIATE RELEASE) PO PRN ×2 (08:07→17:57)
[2017-03-16] MEDS: LISINOPRIL 10 MG TAB PO SCH (08:07)
[2017-03-16 08:30] LABS: ALBUMIN 3.1 gm/dl (3.4-5.0); TOTAL PROTEIN 6.4 gm/dl (6.4-8.2)
--- NOTE | 2017-03-16 13:27 | Progress Note ---
Subjective Date of Service: Mar 16, 2017. Subjective Pt evaluation today including: conversation w/ patient, conversation w/ family , physical exam, lab review, review of inpatient medication list Pain: severe at times, RUQ PO Intake: adequate Voiding: no voiding problems patient feeling okay, still with intermittent sharp, severe RUQ pain no relief with Oxy IR 5mg, Dilaudid helps eating okay, no vomiting Bilirubin continues to drift down, 5 today other enzymes slowly coming down no pathology results yet updated patient's mother at the bedside Problem List Medical Problems: (1) Acute renal failure Status: Acute (2) Anemia Status: Acute (3) Back pain Status: Acute (4) Bilateral flank pain Status: Acute (5) Biliary obstruction Status: Acute (6) Contusion of foot Status: Acute (7) Elevated bilirubin Status: Acute (8) Flank pain Status: Acute (9) Headache Status: Acute (10) Hematuria Status: Acute (11) Hematuria Status: Acute (12) Hypertension Status: Acute (13) Hypokalemia Status: Acute (14) Hypokalemia Status: Acute (15) Hypomagnesemia Status: Acute (16) Lumbar back pain Status: Acute (17) UTI (urinary tract infection) Status: Acute (18) Vomiting Status: Acute Review of Systems All Other Systems: Reviewed and Negative Medications Current Inpatient Medications Medications (Trade) Dose Ordered Sig/Reena Route Start Time Stop Time Status Last Admin Dose Admin Albuterol (Ventolin Hfa Inhaler) 2 puffs Q6H PRN INH 03/08/17 20:45 04/07/17 20:44 Amitriptyline HCl (Elavil Tab) 50 mg HS PO 03/08/17 21:00 04/07/17 20:59 03/15/17 20:53 50 MG Salmeterol Xinafoate/ Fluticasone (Advair Diskus 250/50 Inh) 2 puff BID INH 03/08/17 21:00 04/07/17 20:59 03/16/17 08:06 2 PUFF Folic Acid (Folvite Tab) 1 mg QAM PO 03/09/17 09:00 04/08/17 08:59 03/16/17 08:07 1 MG Pantoprazole Sodium (Protonix Tab) 40 mg DAILY PO 03/09/17 09:00 04/08/17 08:59 03/16/17 08:06 40 MG Zolpidem Tartrate (Ambien Tab) 5 mg HSZ PRN PO 03/08/17 20:45 04/07/17 20:44 Ondansetron HCl (Zofran Inj) 4 mg Q6H PRN IV 03/08/17 20:45 04/07/17 20:44 Methylprednisolone Sodium Succinate 20 mg/Syringe 0.32 ml @ 1.5 mls/min BID IV 03/10/17 21:00 04/09/17 20:59 03/16/17 08:06 1.5 MLS/MIN Lisinopril (Zestril Tab) 10 mg QAM PO 03/13/17 09:00 04/12/17 08:59 03/16/17 08:07 10 MG Hydralazine HCl (HydrALAZINE INJ) 10 mg Q4 PRN IV. 03/13/17 13:00 04/12/17 08:29 03/14/17 16:08 10 MG Hydromorphone HCl (Dilaudid Inj) 1 mg Q4 PRN IV 03/14/17 10:45 03/28/17 10:44 03/16/17 01:13 1 MG Oxycodone HCl (Roxicodone Immediate Rel Tab) 10 mg Q4 PRN PO 03/16/17 11:00 03/29/17 13:14 Objective Vital Signs Date Time Temp Pulse Resp B/P (MAP) Pulse Ox O2 Delivery O2 Flow Rate FiO2 03/16/17 08:00 Room Air 03/16/17 07:45 36.7 76 16 138/86 (103) 98 Room Air 03/15/17 23:25 Room Air 03/15/17 22:52 36.7 96 18 145/92 (109) 98 Room Air 03/15/17 20:20 97 03/15/17 15:50 Room Air 03/15/17 15:21 37.1 112 20 151/104 (120) 97 Room Air Physical Exam General Appearance: WD/WN, no apparent distress Eyes: normal inspection, EOMI, + abnormal sclerae exam (icterus) ENT: normal ENT inspection, hearing grossly normal, pharynx normal Neck: supple, no adenopathy, no JVD, trachea midline Respiratory/Chest: chest non-tender, lungs clear, normal breath sounds, no respiratory distress, no accessory muscle use Cardiovascular: regular rate, rhythm, no edema, no gallop, no JVD, no murmur Abdomen: normal bowel sounds, non tender, soft, no organomegaly Extremities: normal range of motion, non-tender, normal inspection, no pedal edema, no calf tenderness, pelvis stable Neurologic/Psychiatric: [employer] research [employer] director II-XII nml as tested, no motor/sensory deficits, alert, normal mood/affect, oriented x 3 Skin: warm/dry, no rash, + jaundice Lymphatic: no adenopathy Laboratory Results Last 24 Hours Test 03/16/17 07:36 Total Bilirubin 5.4 mg/dl Direct Bilirubin 4.0 mg/dl Aspartate Amino Transf (AST/SGOT) 126 U/L Alanine Aminotransferase (ALT/SGPT) 144 U/L Alkaline Phosphatase 135 U/L Total Protein 6.4 gm/dl Albumin 3.1 gm/dl Assessment and Plan 32 y/o M Hx HTN, bipolar disease, asthma, low back pain, RUQ pain with LFT abnormalities. Pt was admitted for RUQ pain and elevated LFTs including a Tbili of 4,7 12/23. No etiology was confirmed on extensive workup which included EGD and MRCP. The bilirubin gradually normalized without intervention and the pt was DCd. He presents with recurrence of RUQ pain, nausea and vomiting x 1 week. . 1) Jaundice, RUQ pain - elevated bilirubin Initial labs reveal transaminitis and a bilirubin of 7.5 in addition to CHEKO, hypoK, hypoMg. Total and direct bilirubin trending down steadily, AST/ALT and alk phos slightly high but also stable INR normal Work up thus far... US obtained in the ER did not show a dilated CBD or evidence of biliary obstruction MRCP showed no signs of biliary obstruction HIDA scan There was an issue with delayed reuptake in liver which likely points to liver dysfunction. ceruloplasmin slightly low, no neurologic deficits to suggest Copper metabolism issues, no Martinez-Gallito rings on exam getting 24 hour copper collection US guided biopsy performed on 03/14, pathology pending transfer to [place] has been discussed patient and his mother prefer to stay here at [facility] for work up continue Solu Medrol to treat possible autoimmune hepatitis allow regular food today treating pain with Oxy IR, will increase to 10mg since 5mg not working decrease Dilaudid dose, will need to wean off 2) CHEKO - dehydration - resolved 3) HypoK, HypoMg - resolved 4) Bipolar - cont Amitriptyline 5) Lipase is increased - improved 6) HTN - resume Lisinopril, use Hydralazine PRN Continued [facility] stay due to: abnormal vital signs, inadequate oral pain control , other (abd. pain)
[2017-03-16] MEDS: HYDROmorphone INJ 0.5 MG/0.5 ML SYR IV PRN ×2 (13:56→19:23)
[2017-03-16 15:14] VITALS: BP 155/95; PULSE 115; TEMP 36.9; O2SAT 97
--- NOTE | 2017-03-16 19:25 | GASTROENTEROLOGY PROGRESS NOTE ---
DATE: 03/16/2017 Chart reviewed, the patient examined. The patient is resting in bed. Still with right-sided discomfort which is intermittent for him, which can occur with movements and any kind of palpation or pressure against the upper abdomen. The patient's mother is accompanying him this evening. Chart was reviewed and laboratory studies show that the bilirubin did decrease today from 7.1 down to 5.4 and direct from 5.1 to 4.0. Transaminases, the AST fell slightly to 126 from 141 and ALT 144 down from 152. Alkaline phosphatase also tracked down minimally at 135 down from 141. His serologies showed that the ARNOLDO again is positive with 1:160 homogeneous titer. Antismooth muscle LKM antibody is negative. IgG level is negative for excess gamma globulins. Miscellaneous study, the patient's cholesterol pattern which was a send out, shows triglycerides of 351 (normal range is less than 150) with an HDL that is very low at 6 (normal range greater than 40). However, cholesterol levels are not reported on this and references a result comment which is not apparent on this study. Again, this sample was icteric and may limit its utility. I did speak with the pathologist at length today, and although the final diagnosis is not completed, we did discuss that the most relevant feature to this biopsy is the impressive and intensive fat accumulation in the sample admitted. The portal triads that are available actually look normal and there was no evidence for cholestasis, acute or chronic inflammation, and no abnormal population of lymphocytes or plasma cells. Autoimmune hepatitis is not suspected except for the fact that the liver parenchyma itself seems to be overall normal. A 24-hour urine copper collection is pending as ceruloplasmin was just slightly below the normal range. I spoke with the patient and his mother at length regarding his prior history. All of these occurrences were as of December. The only medication that started before that time was his Elavil that was initiated for depression in August or September of this year. He has not been on any antibiotic such as Bactrim or Augmentin or other medication started. He also takes no supplements that would have led to this, does not drink heavy alcohol, and generally has not had alcoholic beverages for a couple of years by his recollection except for his birthday. Prior to this, historically the patient had no known liver problems, abnormal liver tests or abnormal imaging by their recollection. PHYSICAL EXAMINATION: Otherwise unchanged. HEENT: Sclerae are slightly icteric, although this seems to be fading. HEART: Normal S1, S2. LUNGS: Clear to auscultation. ABDOMEN: Soft, tender in the right upper quadrant, again, with mild to moderate palpation. There is no evidence of ascites or shifting dullness. EXTREMITIES: Without clubbing, cyanosis or edema. RECTAL: Deferred. IMPRESSION AND PLAN: The source of the patient's intense fatty infiltration of the liver remains unclear. There is no toxin effect that can be identified and the only medication that was started was Elavil which possibly may be related to this. Therefore, it may be worthwhile to slowly taper the Elavil off over the next few weeks to see if this has any benefit in his liver patterns. In the absence of any convincing evidence for autoimmune hepatitis, it may also be reasonable to begin to slowly taper his steroid dose which is currently Solu-Medrol 20 mg IV q. 12, this potentially can be converted to p.o. prednisone at 30 mg daily and brought down by 10 mg every week and then by 5 mg when finishing the 10-mg per day dosing schedule. I believe it may be worthwhile for the patient to have an evaluation by hepatology at an outside facility and ask the patient to consider going down to [place] as an outpatient. I also will attempt to speak with one of the hepatologists down at [place] to see if they have any additional recommendations as far as laboratory testing. We await the results of the copper workup. The patient should continue to ambulate, continue to advance diet as tolerated and avoid the intake of high fats. If the bilirubin level continues to subside, it may be worthwhile to repeat a lipid panel in order that we can ensure that there is not a high level of cholesterol, LDL-VLDL type, and reassess the triglycerides. It is reasonable that a statin may be of advantage but I would like to see if perhaps tapering the Elavil may help resolve some of this issue. All questions answered.
[2017-03-16 19:31] VITALS: PULSE 98
[2017-03-16] MEDS: AMITRIPTYLINE HCL 50 MG TAB PO SCH (20:55)
[2017-03-16 22:50] VITALS: BP 132/89; PULSE 90; TEMP 36.6; O2SAT 97
[2017-03-17] MEDS: OXYCODONE HCL IR 5 MG TAB (IMMEDIATE RELEASE) PO PRN ×4 (00:02→20:35)
[2017-03-17] MEDS: HYDROmorphone INJ 0.5 MG/0.5 ML SYR IV PRN (05:19)
[2017-03-17 07:27] VITALS: BP 119/75; PULSE 93; TEMP 36.6; O2SAT 97
[2017-03-17] MEDS: METHYLPREDNISOLONE IV 20 MG in SYRINGE 0 ML IV SCH (08:17)
[2017-03-17] MEDS: LISINOPRIL 10 MG TAB PO SCH (08:17)
[2017-03-17] MEDS: PANTOprazole SOD 40 MG TAB PO SCH (08:17)
[2017-03-17] MEDS: FLUTICASONE/SALMETEROL 250/50 (ADVAIR) 14 PUFF/1 INHALER INH SCH ×2 (08:17→20:36)
[2017-03-17 09:48] LABS: ALBUMIN 3.3 gm/dl (3.4-5.0); TOTAL PROTEIN 6.9 gm/dl (6.4-8.2)
[2017-03-17 15:10] VITALS: BP 151/82; PULSE 105; TEMP 36.1; O2SAT 98
--- NOTE | 2017-03-17 15:10 | Progress Note ---
Subjective Date of Service: Mar 17, 2017. Subjective Pt evaluation today including: conversation w/ patient, physical exam, lab review, review of inpatient medication list Pain: moderate RUQ PO Intake: adequate Voiding: no voiding problems reviewed labs, LFT continue to trend down reviewed pathology results, Dr. Figueroa discussed with patient yesterday discussed that he needs to be referred to a zoology teacher at [place] discussed going home and he agreed, only he cannot get a ride today, mother will pick him up tomorrow Problem List Medical Problems: (1) Acute renal failure Status: Acute (2) Anemia Status: Acute (3) Back pain Status: Acute (4) Bilateral flank pain Status: Acute (5) Biliary obstruction Status: Acute (6) Contusion of foot Status: Acute (7) Elevated bilirubin Status: Acute (8) Flank pain Status: Acute (9) Headache Status: Acute (10) Hematuria Status: Acute (11) Hematuria Status: Acute (12) Hypertension Status: Acute (13) Hypokalemia Status: Acute (14) Hypokalemia Status: Acute (15) Hypomagnesemia Status: Acute (16) Lumbar back pain Status: Acute (17) UTI (urinary tract infection) Status: Acute (18) Vomiting Status: Acute Review of Systems Abdomen: + pain (RUQ) All Other Systems: Reviewed and Negative Medications Current Inpatient Medications Medications (Trade) Dose Ordered Sig/Reena Route Start Time Stop Time Status Last Admin Dose Admin Albuterol (Ventolin Hfa Inhaler) 2 puffs Q6H PRN INH 03/08/17 20:45 04/07/17 20:44 Amitriptyline HCl (Elavil Tab) 50 mg HS PO 03/08/17 21:00 04/07/17 20:59 03/16/17 20:55 50 MG Salmeterol Xinafoate/ Fluticasone (Advair Diskus 250/50 Inh) 2 puff BID INH 03/08/17 21:00 04/07/17 20:59 03/17/17 08:17 2 PUFF Folic Acid (Folvite Tab) 1 mg QAM PO 03/09/17 09:00 04/08/17 08:59 03/17/17 08:17 1 MG Pantoprazole Sodium (Protonix Tab) 40 mg DAILY PO 03/09/17 09:00 04/08/17 08:59 03/17/17 08:17 40 MG Zolpidem Tartrate (Ambien Tab) 5 mg HSZ PRN PO 03/08/17 20:45 04/07/17 20:44 Ondansetron HCl (Zofran Inj) 4 mg Q6H PRN IV 03/08/17 20:45 04/07/17 20:44 Lisinopril (Zestril Tab) 10 mg QAM PO 03/13/17 09:00 04/12/17 08:59 03/17/17 08:17 10 MG Hydralazine HCl (HydrALAZINE INJ) 10 mg Q4 PRN IV. 03/13/17 13:00 04/12/17 08:29 03/14/17 16:08 10 MG Oxycodone HCl (Roxicodone Immediate Rel Tab) 10 mg Q4 PRN PO 03/16/17 11:00 03/29/17 13:14 03/17/17 10:25 10 MG Hydromorphone HCl (Dilaudid Inj) 0.5 mg Q6 PRN IV 03/16/17 13:30 03/28/17 10:44 03/17/17 05:19 0.5 MG Prednisone (PredniSONE TAB) 30 mg QAM PO 03/18/17 09:00 04/17/17 08:59 Objective Vital Signs Date Time Temp Pulse Resp B/P (MAP) Pulse Ox O2 Delivery O2 Flow Rate FiO2 03/17/17 08:15 Room Air 03/17/17 07:27 36.6 93 17 119/75 (90) 97 Room Air 03/17/17 00:05 Room Air 03/16/17 22:50 36.6 90 16 132/89 (103) 97 Room Air 03/16/17 19:31 98 03/16/17 15:40 Room Air 03/16/17 15:14 36.9 115 18 155/95 (115) 97 Room Air Physical Exam General Appearance: WD/WN, no apparent distress Eyes: normal inspection, EOMI, sclerae normal ENT: normal ENT inspection, hearing grossly normal, pharynx normal Neck: supple, no adenopathy, no JVD, trachea midline Respiratory/Chest: chest non-tender, lungs clear, normal breath sounds, no respiratory distress, no accessory muscle use Cardiovascular: regular rate, rhythm, no edema, no gallop, no JVD, no murmur Abdomen: normal bowel sounds, non tender, soft, no organomegaly Extremities: normal range of motion, non-tender, normal inspection, no pedal edema, no calf tenderness, pelvis stable Neurologic/Psychiatric: director of primary care II-XII nml as tested, no motor/sensory deficits, alert, normal mood/affect, oriented x 3 Skin: warm/dry, no rash, + jaundice (mild) Lymphatic: no adenopathy Laboratory Results Last 24 Hours Test 03/17/17 09:01 Total Bilirubin 5.1 mg/dl Direct Bilirubin 3.3 mg/dl Aspartate Amino Transf (AST/SGOT) 105 U/L Alanine Aminotransferase (ALT/SGPT) 144 U/L Alkaline Phosphatase 135 U/L Total Protein 6.9 gm/dl Albumin 3.3 gm/dl Assessment and Plan 32 y/o M Hx HTN, bipolar disease, asthma, low back pain, RUQ pain with LFT abnormalities. Pt was admitted for RUQ pain and elevated LFTs including a Tbili of 4,7 12/23. No etiology was confirmed on extensive workup which included EGD and MRCP. The bilirubin gradually normalized without intervention and the pt was DCd. He presents with recurrence of RUQ pain, nausea and vomiting x 1 week. . 1) Jaundice, RUQ pain - elevated bilirubin Initial labs reveal transaminitis and a bilirubin of 7.5 in addition to CHEKO, hypoK, hypoMg. bili and transaminases continue to go down, safe for discharge Work up thus far... US obtained in the ER did not show a dilated CBD or evidence of biliary obstruction MRCP showed no signs of biliary obstruction HIDA scan There was an issue with delayed reuptake in liver which likely points to liver dysfunction. ceruloplasmin slightly low, no neurologic deficits to suggest Copper metabolism issues, no Martinez-Gallito rings on exam getting 24 hour copper collection US guided biopsy performed on 03/14, pathology showed steatosis, no inflammation, still no clear diagnosis patient should see hepatology as outpatient at [place] change to Prednisone 30mg daily and plan to taper allow regular food, tolerating well treating pain with Oxy IR, will increase to 10mg since 5mg not working stop Dilaudid 2) CHEKO - dehydration - resolved 3) HypoK, HypoMg - resolved 4) Bipolar - cont Amitriptyline 5) Lipase is increased - improved 6) HTN - resume Lisinopril, use Hydralazine PRN Continued [facility] stay due to: abnormal vital signs, inadequate oral pain control , other (abd. pain)
[2017-03-17 16:31] VITALS: BP 138/91; PULSE 94
--- NOTE | 2017-03-17 17:55 | GASTROENTEROLOGY PROGRESS NOTE ---
DATE: 03/17/2017 SUBJECTIVE: Chart reviewed and the patient examined. The patient doing perhaps a little better, although continues with intermittent right-sided abdominal pain with light palpation. He seems to be tolerating food well. PHYSICAL EXAMINATION: VITAL SIGNS: Unremarkable. He is afebrile 36.1, blood pressure 151/82, respirations 16, heart rate 105, 98% on room air. GENERAL: The patient is awake, alert and oriented x3. HEENT: Sclerae minimally anicteric. Oral mucosa moist. HEART: Normal S1, S2. LUNGS: Clear to auscultation. ABDOMEN: Soft, tender in the right upper quadrant with mild palpation, perhaps less tender than over the preceding days. EXTREMITIES: Without clubbing, cyanosis or edema. Positive bowel sounds. RECTAL: Deferred. REVIEW OF SYSTEMS: Otherwise noncontributory based on 13-point exam except for mentioned above. The reports bowel movements that are normal and tolerating p.o. LABORATORY STUDIES: Today show white count of 4.9, hemoglobin is stable at 10. His platelets are 184,000. His total bilirubin continues to slowly decline and is 5.1 today down from 5.4 yesterday and direct bilirubin 3.3 down from 4.0. AST also fell slightly to 105 from 126, but ALT remains stable at 144. Alk phos also stable at 135. The 24-hour urine copper study is pending at this time. IMPRESSION AND PLAN: I spoke with the patient today at length again regarding the results of the biopsies, please see yesterday's note. after review of the patient's medication, the one item that he started a few months before the onset of the symptoms in December is Elavil. In reviewing this agent, it is possible that both a primary hepatocellular or cholestatic picture can develop in inpatients. Therefore, as this is the only obvious new agent that was started and his LFTs essentially have persisted, although fluctuated over the last few months, I believe it is reasonable to slowly wean the patient off of Elavil and avoid tricyclics agents in the future. SSRIs would be an alternative if antidepressant therapy is needed. He did tolerate Zoloft in the past and it is unclear why this was stopped. There is also another marker that may look for any extremely uncommon source of intense fatty liver for which I did again review the pathology report and this appears to be the majority, although there is a paucity of liver tissue on the specimen submitted, nevertheless were normal appearing portal triads without any significant inflammation, fibrosis and the majority of the biopsy assessment shows a macrovesicular fat. I will obtain a JEANETTE serum test to see if this uncommon genetic metabolism disorder is present. This will be a send out and may not be available before the patient's discharge, but at least would give us some idea if there is a genetic component to this. In the meantime, when his labs continue to fall, at least his bilirubin it may be prudent to repeat a lipid panel to see if there is evidence of elevated cholesterol and the status of his triglycerides as a component of the patient's symptoms. Lastly, there is no strong evidence to suggest that autoimmune hepatitis is present and therefore it may be reasonable to reduce and wean the Solu-Medrol. Therefore, I would ask that you reduce the Elavil tonight to 25 mg at bedtime, continue this for a week and if the patient does well, then this can be further reduced over the subsequent week with the intention to have it completely off over the next 14 days. I will defer it to the patient's PCP and the primary service if an alternative SSRI is needed. Regarding the Solu-Medrol which is currently 20 q.12, it may be reasonable to begin the prednisone taper which is currently at 30 mg and I would also taper this to have it off over the next 2 weeks or so. All questions answered. If the patient is discharged over the weekend, we will make arrangements in the office for followup and he should have serial LFTs over time in order to track his progress. Lastly, Dr. Mcdaniels is covering this weekend who is familiar with the patient from his initial admission in December.
[2017-03-17] MEDS: AMITRIPTYLINE HCL 50 MG TAB PO SCH (20:36)
[2017-03-17 23:10] VITALS: BP 126/81; PULSE 103; TEMP 36.8; O2SAT 98
[2017-03-18] MEDS: OXYCODONE HCL IR 5 MG TAB (IMMEDIATE RELEASE) PO PRN ×3 (00:42→08:50)
[2017-03-18 07:16] VITALS: BP 124/79; PULSE 101; TEMP 36.7; O2SAT 99
[2017-03-18] MEDS: PANTOprazole SOD 40 MG TAB PO SCH (09:14)
[2017-03-18] MEDS: FLUTICASONE/SALMETEROL 250/50 (ADVAIR) 14 PUFF/1 INHALER INH SCH (09:14)
[2017-03-18] MEDS: LISINOPRIL 10 MG TAB PO SCH (09:15)
[2017-03-18] MEDS ORDERED: AMT10 PO (11:11)
[2017-03-18] MEDS ORDERED: AMT25 PO (11:11)
[2017-03-18] MEDS ORDERED: PRD10 PO (11:12)
[2017-03-18] MEDS ORDERED: RXC5 PO (11:12)
--- NOTE | 2017-03-18 11:18 | Discharge Instructions ---
Discharge Instructions Date of Service Mar 18, 2017. Admission Reason for Admission: Elevated liver enzymes Discharge Discharge Diagnosis / Problem: Elevated liver enzymes, unclear etiology Discharge Goals Goal(s): Improve function, Improve disease control, Diagnostic testing ( referral to [place]) Activity Recommendations Activity Limitations: resume your previous activity Driving or Machine Use: no driving after taking Oxycodone . Instructions / Follow-Up Instructions / Follow-Up Medications: - PREDNISONE: starting tomorrow, 30mg daily x 2 days, 20mg daily x 2 days, 10mg daily x 2 days - AMITRIPTYLINE: start this evening, 25mg at bedtime for 7 days then 10mg at bedtime for 7 days then stop - OXYCODONE: you can take 10mg every 4 hours as needed, try to use 5mg if possible and try to space out further than 4 hours pain should subside as liver improves Elevated liver enzymes, unclear etiology enzymes trending down, not quite normal, need to be follow outpatient please get liver enzymes twice a week (Monday and ) with results to Dr. Figueroa as we discussed, liver biopsy showed steatosis, no inflammation, no scarring serology studies did not clearly show a diagnosis Dr. Figueroa would like to refer you to hepatology at [place], call his office to arrange FOLLOW UP - Dr. Lombardi in one week, call for appointment - [place] hepatology at , call Dr. Figueroa's office this week to assist with this referral, Current Hospital Diet Patient's current hospital diet: Regular Diet Discharge Diet Recommended Diet: Regular Diet Procedures Procedures Performed: Liver biopsy Pending Studies Studies pending at discharge: no Laboratory Results Hemoglobin A1c Test 03/12/17 10:00 Range/Units Estimated Average Glucose 97 mg/dl Hemoglobin A1c 5.0 4.5-5.6 % Medical Emergencies . Who to Call and When: Medical Emergencies: If at any time you feel your situation is an emergency, please call 911 immediately. . Non-Emergent Contact Non-Emergency issues call your: Primary Care Provider, Dough Braker Call Non-Emergent contact if: your pain is not controlled, you have any medication questions . . "Provider Documentation" section prepared by Matt Barth. . VTE Core Measure Inpt VTE Proph given/why not?: SCD's [place] Drug Monitoring Program Search Results: no issues identified
[2017-03-18 11:59] VITALS: BP 124/79; PULSE 101; TEMP 36.7; O2SAT 99
[2017-03-18] MEDS ORDERED: AMITRIPTYLINE HCL 50 MG TAB PO SCH (21:00)
--- NOTE | 2017-03-19 09:14 | Discharge Summary ---
Discharge Summary Date of Service Mar 18, 2017. Discharge Summary Admission Date: Mar 08, 2017 at 20:41 Discharge Date: Mar 18, 2017 Discharge Disposition: Home Principal Diagnosis: Elevated bilirubin Problems/Secondary Diagnoses: Hepatic steatosis Hypertension Procedures: Transcutaneous, US guided liver biopsy Consultations: Gastroenterology Radiology for biopsy Medication Reconciliation New Medications: Amitriptyline HCl (Amitriptyline HCl) 10 Mg Tab 10 MG PO HS for 7 Days, #7 TABS 0 Refills Amitriptyline HCl (Amitriptyline HCl) 25 Mg Tab 25 MG PO HS for 7 Days, #7 TABS 0 Refills Oxycodone HCl (Oxycodone HCl) 5 Mg Tab 10 MG PO Q4 PRN for Pain, #20 TAB 0 Refills Prednisone (Prednisone) 10 Mg Tab 30 MG PO QAM, #12 TAB 0 Refills 30mg (3 tabs) daily x 2 days then 20mg daily x 2 days then 10mg daily x 2 days then stop Continued Medications: Albuterol Hfa (Ventolin Hfa) 200 Puffs/55263 Mcg Aers 2-4 PUFFS INH BID, #1 INHALER Albuterol Sulf (Proventil 0.083% 2.5MG/3ML) 2.5 Mg/3 Ml Nebu 2.5 MG INH PRN, EA Fluticasone Prop/Salmeterol (Advair Diskus 250/50 60 Dose) 1 Ea Aerp 2 PUFF INH BID, INHALER Folic Acid (Folic Acid) 1 Mg Tab 1 MG PO QAM for 30 Days, #30 TAB Lisinopril (Lisinopril) 10 Mg Tab 10 MG PO DAILY Pantoprazole (Protonix) 40 Mg Tab 40 MG PO DAILY, #30 TAB Discontinued Medications: Amitriptyline Hcl (Elavil) 25 Mg Tab 50 MG PO HS, TAB Discharge Exam Patient feeling better on the day of discharge, eating well, pain controlled on Oxycodone 10mg, feels ready to go home. Review of Systems: Constitutional: No fever, No chills, No sweats, No weight loss, No weakness , No fatigue, No problem reported Eyes: No worsening of vision, No eye pain, No redness, No discharge, No diplopia, No problem reported ENT: No hearing loss, No unusual epistaxis, No nasal symptoms, No sore throat, No tinnitus, No dental problems, No trouble swallowing, No problem reported Respiratory: No cough, No sputum, No wheezing, No shortness of breath, No dyspnea on exertion, No dyspnea at rest, No hemoptysis, No problem reported Cardiovascular: No chest pain, No orthopnea, No PND, No edema, No claudication, No palpitations, No problem reported Abdomen: + pain (RUQ), No nausea, No vomiting, No diarrhea, No constipation , No GI bleeding, No problem reported Musculoskeletal: No joint pain, No muscle pain, No swelling, No calf pain, No problem reported Genitourinary - Male: No hematuria, No dysuria, No urinary frequency, No urinary urgency Neurologic: No memory loss, No paralysis, No weakness, No numbness/tingling , No vertigo, No balance problems, No problem reported Psychiatric: No depression symptoms, No anhedonism, No anxiety, No insomnia , No substance abuse, No problem reported Endocrine: No fatigue, No excessive thirst, No excessive urination, No problem reported Hematologic / Lymphatic: No abnormal bleeding/bruising, No clotting problems , No swollen lymph nodes, No night sweats, No problem reported Integumentary: No rash, No itch, No new/changing skin lesions, No color change, No bleeding, No problem reported Physical Exam: General Appearance: WD/WN, no apparent distress Eyes: normal inspection, EOMI, sclerae normal ENT: normal ENT inspection, hearing grossly normal, pharynx normal Neck: supple, no adenopathy, no JVD, trachea midline Respiratory/Chest: chest non-tender, lungs clear, normal breath sounds, no respiratory distress, no accessory muscle use Cardiovascular: regular rate, rhythm, no edema, no gallop, no JVD, no murmur , normal peripheral pulses Abdomen / GI: normal bowel sounds, non tender, soft, no organomegaly Extremities: normal inspection, no calf tenderness, normal capillary refill , no pedal edema, normal range of motion, pelvis stable Neurologic/Psychiatric: chorus master II-XII nml as tested, no motor/sensory deficits , alert, normal mood/affect, normal reflexes, oriented x 3 Skin: normal color, warm/dry, no rash, + jaundice (mild) Lymphatic: no adenopathy Hospital Course 32 y/o M Hx HTN, bipolar disease, asthma, low back pain, RUQ pain with LFT abnormalities. Pt was admitted for RUQ pain and elevated LFTs including a Tbili of 4,7 12/23. No etiology was confirmed on extensive workup which included EGD and MRCP. The bilirubin gradually normalized without intervention and the pt was DCd. He presents with recurrence of RUQ pain, nausea and vomiting x 1 week. . 1) Jaundice, RUQ pain - elevated bilirubin Initial labs revealed a transaminitis and a bilirubin of 7.5 in addition to CHEKO , hypoK, hypoMg. bilirubin and AST/ALT continue to trend down, acceptable for discharge Work up during admission... US obtained in the ER did not show a dilated CBD or evidence of biliary obstruction MRCP showed no signs of biliary obstruction HIDA scan There was an issue with delayed reuptake in liver which likely points to liver dysfunction. ceruloplasmin slightly low, no neurologic deficits to suggest Copper metabolism issues, no Martinez-Gallito rings on exam copper level is low, not high US guided biopsy performed on 03/14, pathology showed steatosis, no inflammation, still no clear diagnosis patient should see hepatology as outpatient at [place] change to Prednisone 30mg daily and plan to taper over the next week allow regular food, tolerating well treating pain with Oxy IR 10mg possible that it is caused by Elavil, was taking 50mg qHS will taper to 25mg qHS for one week then 10mg qHS for a week and then stop 2) CHEKO - dehydration - resolved 3) HypoK, HypoMg - resolved 4) Bipolar - cont Amitriptyline 5) Lipase is increased - improved 6) HTN - resumed Lisinopril once renal failure resolved Total Time Spent: Greater than 30 minutes This includes examination of the patient, discharge planning, medication reconciliation, and communication with other providers. Discharge Instructions Please refer to the electronic Patient Visit Report (Discharge Instructions) for additional information. Follow-Up Dr. Lombardi in one week Hepatology in [place], referral by [facility] here in [place] will get LFT twice a week with results to Dr. Lombardi and Dr. Figueroa Additional Copies To Robert Figueroa M.D.; Noemy Lombardi,
== END 2017-03-18 12:18 | disposition home or self-care (01) | DRG 442 ==
LOC: EDBD 16:45 → C.EDB 16:47 → C.MSW 20:41 → ENRESERV 21:13
PROVIDERS: ADMIT Internal Medicine; ATTEND Internal Medicine
PROC: 0FB13ZX Excision of Right Lobe Liver, Percutaneous Approach, Diagnostic (ICD-10-PCS; principal; 2017-03-14)
DX: R17 Unspecified jaundice (principal); N17.9 Acute kidney failure, unspecified; F31.9 Bipolar disorder, unspecified; J45.909 Unspecified asthma, uncomplicated; M54.5 Low back pain; Z83.3 Family history of diabetes mellitus; Z82.49 Family history of ischemic heart disease and other diseases of the circulatory system; Z88.1 Allergy status to other antibiotic agents; Z82.3 Family history of stroke; E87.6 Hypokalemia; E83.42 Hypomagnesemia; I10 Essential (primary) hypertension; R74.0 Nonspecific elevation of levels of transaminase and lactic acid dehydrogenase [LDH]; K76.0 Fatty (change of) liver, not elsewhere classified

== ENCOUNTER 2017-04-27 04:22 | Inpatient (IN) | payer OTHER ==
[~2017-04-27] VITALS: Ht 185.4 cm; Wt 100.0 kg
[~2017-04-27 04:22] MED LIST changes: -ADVIN25/60 INH; -ALBINS/ INH; -AMIT25TA9 PO; +AMT10 PO; +AMT25 PO; -CLN150 PO; -HYDR-5688 PO; -LISI-461 PO; +PRD10 PO; -PRED10TA PO; +RXC5 PO; -VNTHFA/IN INH
[2017-04-27] MEDS ORDERED: MoRPHine SULFATE 4 MG/ML 1 ML CARP\\VIAL IV STA (04:34)
[2017-04-27] MEDS ORDERED: ONDANSETRON INJ 2 MG/ML 2 ML VIAL IV STA (04:34)
[2017-04-27] MEDS ORDERED: SODIUM CHLORIDE 0.9% 1000ML 1,000 ML IV STA ×3 (04:34→06:53)
[2017-04-27] MEDS ORDERED: OPTIRAY 320 IV PRN (05:15)
[2017-04-27 05:17] LABS: BASO % 0.1 %; BASO ABS # 0.01 K/uL (0-0.2); EOS % 0.1 %; EOS ABS # 0.01 K/uL (0-0.5); HEMATOCRIT 43.5 % (42-52); HEMOGLOBIN 15.2 g/dL (14.0-18.0); IG# 0.03 K/uL (0.00-0.02); LYMPH % 19.7 %; LYMPH ABS # 2.05 K/uL (1.2-3.4); MEAN CELL VOLUME 88.6 fL (80-100); MEAN CORPUSCULAR HGB CONC 34.9 g/dl (32-36); MEAN PLATELET VOLUME 10.4 fL (7.4-10.4); MONO ABS # 1.35 K/uL (0.11-0.59); NEUT % 66.8 %; NEUT ABS # 6.93 K/uL (1.4-6.5); PLATELET COUNT 333 K/uL (130-400); RED CELL DISTRIBUTION WIDTH CV 14.7 % (11.5-14.5); RED CELL DISTRIBUTION WIDTH SD 47.6 fL (36.4-46.3); WHITE BLOOD COUNT 10.38 K/uL (4.8-10.8)
[2017-04-27] MEDS ORDERED: HYDROmorphone INJ 1 MG/ML SYR IV STA (05:23)
[2017-04-27 05:29] LABS: ISTAT CREATININE 1.1 mg/dl (0.6-1.3); ISTAT IONIZED CALCIUM 1.02 mmol/l (1.12-1.32); ISTAT POTASSIUM 8.1 mEq/L (3.3-5.0)
[2017-04-27 05:35] LABS: ALBUMIN 3.6 gm/dl (3.4-5.0); CALCIUM 11.2 mg/dl (8.5-10.1); CREATININE 1.45 mg/dl (0.60-1.40)
[2017-04-27 05:38] LABS: TOTAL PROTEIN 7.8 gm/dl (6.4-8.2)
[2017-04-27] MEDS ORDERED: METOCLOPRAMIDE HCL INJ 5 MG/ML 2 ML VIAL IV STA (06:02)
[2017-04-27] MEDS ORDERED: ALUMINUM/MAGNESIUM SUSP 30 ML UDC PO STA (06:25)
[2017-04-27] MEDS ORDERED: LIDOCAINE HCL 2% VISC SOLN 20 ML UDC PO STA (06:25)
[2017-04-27] MEDS ORDERED: HYDROmorphone INJ 2 MG/ML SYR/VIAL IV STA (06:37)
--- NOTE | 2017-04-27 07:07 | DIAGNOSTIC IMAGING REPORT ---
CT ABD/PELVIS IV CONTRAST ONLY CLINICAL HISTORY: Severe epigastric pain and vomiting COMPARISON STUDY: 03/08/2017 TECHNIQUE: Following the IV administration of 91 mL of Optiray-320, CT scan of the abdomen and pelvis was performed from the lung bases to the proximal femurs. Images are reviewed in the axial, sagittal, and coronal planes. IV contrast was administered without complication. A dose lowering technique was utilized adhering to the principles of ALARA. CT DOSE: 551.48 mGy.cm FINDINGS: Lower chest: The heart is normal in size and configuration, without pericardial effusion. The lung bases and pleural spaces are clear. There is a small hiatal hernia with distal esophageal wall thickening Liver: There is severe hepatic steatosis. There is a stable indeterminate 12 mm hyperdense nodule within the right lobe of the liver. Gallbladder: Unremarkable. Spleen: Normal in size and attenuation. Pancreas: Unremarkable. Adrenal glands: Unremarkable. Kidneys: There is a punctate nonobstructing upper pole left renal calculus. No solid renal masses are visualized. There is no hydronephrosis. Bowel: There are no transition zones indicate bowel obstruction. There is no evidence of acute diverticulitis. There are no findings to indicate acute appendicitis. Peritoneum: There is no intraperitoneal free air or abdominal ascites. Vasculature: The abdominal aorta is normal in course and caliber. Adenopathy: None. Pelvic viscera: The bladder, and pelvic viscera are unremarkable. Skeletal structures: No destructive osseous lesions are seen. IMPRESSION: 1. No evidence of bowel obstruction. No evidence of free air 2. Severe hepatic steatosis. Stable indeterminate 12 mm hyperdense nodule within the right lobe of the liver. 3. Punctate nonobstructing left renal calculus 4. No evidence of diverticulitis. No evidence of acute appendicitis. 5. Small hiatal hernia with distal esophageal wall thickening. This may indicate a nonspecific esophagitis. Electronically signed by: Ananda Jones M.D. 04/27/2017 7:05 AM Dictated Date/Time: 04/27/2017 7:00 AM
--- NOTE | 2017-04-27 07:16 | DIAGNOSTIC IMAGING REPORT ---
CHEST ONE VIEW PORTABLE CLINICAL HISTORY: Pain, radiating to the abdomen. COMPARISON STUDY: 03/08/2017 FINDINGS: The cardiac and mediastinal contours are normal. There is no evidence of focal pulmonary consolidation. There is no evidence of failure. No pleural effusions are visualized.[ No free intraperitoneal air is visualized IMPRESSION: No active disease in the chest. Electronically signed by: Ananda Jones M.D. 04/27/2017 7:15 AM Dictated Date/Time: 04/27/2017 7:14 AM
[2017-04-27] MEDS ORDERED: ALBUTEROL HFA 8 GM INHALER INH PRN (09:15)
[2017-04-27] MEDS ORDERED: ONDANSETRON INJ 2 MG/ML 2 ML VIAL IV PRN (09:15)
[2017-04-27] MEDS ORDERED: MAGNESIUM HYDROXIDE SUSP 30 ML UDC PO PRN (09:15)
[2017-04-27] MEDS ORDERED: ALUMINUM/MAGNESIUM/SIMETH (MAALOX MAX) 30 ML UDC PO PRN (09:15)
[2017-04-27] MEDS ORDERED: ACETAMINOPHEN 325 MG TAB PO PRN (09:15)
[2017-04-27] MEDS ORDERED: POLYETHYLENE (MIRALAX) 17 GM PACK PO PRN (09:15)
--- NOTE | 2017-04-27 09:38 | History and Physical ---
History & Physical Date & Time of Service: Apr 27, 2017 at 09:16 Chief Complaint: Severe Vomiting,Yellow Tint To Skin And Eyes Primary Care Physician: Noemy Lombardi DO History of Present Illness Source: patient, family (mother at bedside), clinic records, hospital records This is a 32 y/o male with a history of severe hepatic steatosis, esophagitis, HTN, asthma, depression, and PTSD who presented to the ED on 04/27 with RUQ pain , nausea, and vomiting. The patient has a history of ongoing RUQ pain. This became acutely worse around 0200 this morning. The patient complains of a 10/ 10 sharp, squeezing pain in his RUQ that is constant and does not radiate. He also states that he has had nausea and vomiting since 04/24 and has not been able to keep any food or liquids down. He notes intermittent tinges of blood and "black bits" in his vomitus to me, although he had denied this to the ED provider. The patient was diagnosed with severe hepatic steatosis of unclear etiology via liver biopsy last month but has been unable to follow up with hepatology. The patient denies fevers, chills, sweats, chest pain, palpitations , claudication, cough, wheezing, shortness of breath, dysuria, hematuria, urinary retention, paralysis, focal motor weakness, numbness and tingling. Past Medical/Surgical History Medical Problems: (1) Abdominal pain (2) Acute renal failure (3) Anemia (4) Anemia (5) Asthma (6) Back pain (7) Back pain (8) Bilateral flank pain (9) Bilateral flank pain (10) Biliary obstruction (11) Brain bleed (12) Broken back (13) Chronic headache (14) Contusion of foot (15) Elevated bilirubin (16) Flank pain (17) Flank pain (18) Headache (19) Hematuria (20) Hematuria (21) Hypertension (22) Hypokalemia (23) Hypokalemia (24) Hypomagnesemia (25) Lumbar back pain (26) Malingerer (27) Postconcussive syndrome (28) PTSD (post-traumatic stress disorder) (29) UTI (urinary tract infection) (30) Vomiting (31) Vomiting Family History Asthma Cancer Diabetes mellitus FH: heart disease FHx: lung disease Hypertension Kidney disease Kidney stones Stroke Social History Smoking Status: Never Smoker Smokeless Tobacco Use: No (history of chewing) Alcohol Use: none (previous social drinker, no ETOH for 5 years) Drug Use: none Marital Status: single Housing status: lives with family (with mother) Occupational Status: unemployed Allergies Coded Allergies: Lactose Intolerance (GI) (Verified Allergy, Intermediate, abdomainal cramps, diarrhea, 04/27/17) Mold (Blue) Cheese (Verified Allergy, Intermediate, rash, 04/27/17) Penicillins (Verified Allergy, Intermediate, ITCHY BLOTCHES, 04/27/17) Amitriptyline (Unverified Allergy, Unknown, chest tightness difficulty breathing unable to function, 04/27/17) Naproxen (Unverified Allergy, Unknown, ITCHY, 04/27/17) Red Dye (Verified Allergy, Unknown, HIVES, 04/27/17) Home Medications Scheduled Albuterol Hfa (Ventolin Hfa), 2-4 PUFFS INH BID Albuterol Sulf (Proventil 0.083% 2.5MG/3ML), 2.5 MG INH PRN Fluticasone Prop/Salmeterol (Advair Diskus 250/50 60 Dose), 2 PUFF INH BID Lisinopril (Lisinopril), 10 MG PO DAILY Pantoprazole (Protonix), 40 MG PO DAILY Scheduled PRN Oxycodone HCl (Oxycodone HCl), 10 MG PO Q4 PRN for Pain Review of Systems Constitutional: No fever, No chills, No sweats Eyes: No worsening of vision, No eye pain, No diplopia ENT: No hearing loss, No nasal symptoms, No trouble swallowing Respiratory: No cough, No wheezing, No shortness of breath Cardiovascular: No chest pain, No claudication, No palpitations Abdomen: +Nausea, vomiting, RUQ pain Musculoskeletal: No joint pain, No muscle pain, No swelling Genitourinary - Male: No dysuria, No urinary retention, No hematuria Neurologic: No paralysis, No weakness, No numbness/tingling Integumentary: No rash, No itch, No color change Physical Exam Vital Signs Date Time Temp Pulse Resp B/P (MAP) Pulse Ox O2 Delivery O2 Flow Rate FiO2 04/27/17 08:05 37.0 113 18 116/82 94 Room Air 04/27/17 06:43 120 13 127/78 93 Room Air 04/27/17 05:46 118 04/27/17 05:43 121 16 126/94 98 Room Air 04/27/17 05:27 Room Air 04/27/17 04:26 36.9 139 20 122/88 97 Room Air General appearance: Well-developed, well-nourished, no apparent distress Head: Normocephalic, atraumatic Eyes: Normal inspection, PERRL, EOMI ENT: +Dry oral mucosa. Normal ENT inspection, hearing grossly normal, pharynx normal Neck: Supple, no JVD, trachea midline Respiratory/Chest: Lungs clear to auscultation, normal breath sounds, no respiratory distress Cardiovascular: Regular rate & rhythm, no gallop, no murmur Abdomen/GI: +RUQ and epigastrium TTP. Normal bowel sounds, soft Extremities/Musculoskeletal: Normal inspection, no calf tenderness, no pedal edema Neurological/Psych: Alert, normal mood/affect, oriented x 3 Skin: Normal color, warm/dry, no rash Diagnostics Laboratory Results Results Past 24 Hours Test 04/27/17 04:56 04/27/17 05:04 04/27/17 05:13 04/27/17 05:16 Range/Units White Blood Count 10.38 4.8-10.8 K/uL Red Blood Count 4.91 4.7-6.1 M/uL Hemoglobin 15.2 14.0-18.0 g/dL Hematocrit 43.5 42-52 % Mean Corpuscular Volume 88.6 80-100 fL Mean Corpuscular Hemoglobin 31.0 25-34 pg Mean Corpuscular Hemoglobin Concent 34.9 32-36 g/dl Platelet Count 333 130-400 K/uL Mean Platelet Volume 10.4 7.4-10.4 fL Neutrophils (%) (Auto) 66.8 % Lymphocytes (%) (Auto) 19.7 % Monocytes (%) (Auto) 13.0 % Eosinophils (%) (Auto) 0.1 % Basophils (%) (Auto) 0.1 % Neutrophils # (Auto) 6.93 1.4-6.5 K/uL Lymphocytes # (Auto) 2.05 1.2-3.4 K/uL Monocytes # (Auto) 1.35 0.11-0.59 K/uL Eosinophils # (Auto) 0.01 0-0.5 K/uL Basophils # (Auto) 0.01 0-0.2 K/uL RDW Standard Deviation 47.6 36.4-46.3 fL RDW Coefficient of Variation 14.7 11.5-14.5 % Immature Granulocyte % (Auto) 0.3 % Immature Granulocyte # (Auto) 0.03 0.00-0.02 K/uL Sodium Level 131 136-145 mmol/L Potassium Level 3.0 3.5-5.1 mmol/L Chloride Level 84 98-107 mmol/L Carbon Dioxide Level 31 21-32 mmol/L Anion Gap 16.0 18.0 16-25 mmol/L Blood Urea Nitrogen 6 7-18 mg/dl Creatinine 1.45 0.60-1.40 mg/dl Est Creatinine Clear Calc Drug Dose 89.3 ml/min Estimated GFR () 72.3 Estimated GFR (Non- 62.4 BUN/Creatinine Ratio 4.0 10-20 Random Glucose 127 70-99 mg/dl Calcium Level 11.2 8.5-10.1 mg/dl Total Bilirubin 2.6 0.2-1 mg/dl Direct Bilirubin 0.6 0-0.2 mg/dl Aspartate Amino Transf (AST/SGOT) 47 15-37 U/L Alanine Aminotransferase (ALT/SGPT) 75 12-78 U/L Alkaline Phosphatase 119 45-117 U/L Total Protein 7.8 6.4-8.2 gm/dl Albumin 3.6 3.4-5.0 gm/dl Lipase 100 73-393 U/L Bedside Lactic Acid Venous 6.30 0.90-1.70 mmol/L Bedside Troponin I 0.030 0-0.045 ng/ml Bedside Hemoglobin 15.0 14.0-18.0 g/dl Bedside Hematocrit 44 42-52 % Bedside Sodium 128 135-144 mEq/L Bedside Potassium 8.1 3.3-5.0 mEq/L Bedside Chloride 83 101-112 mEq/L Bedside Total CO2 36 24-31 mEq/l Bedside Blood Urea Nitrogen 6 7-18 mg/dl Bedside Creatinine 1.1 0.6-1.3 mg/dl Bedside Glucose (other) 134 70-99 mg/dl Bedside Ionized Calcium (To) 1.02 1.12-1.32 mmol/l Test 04/27/17 05:59 04/27/17 09:06 Range/Units Lactic Acid Level 5.0 0.4-2.0 mmol/L Diagnostic Radiology Reviewed the following studies and agree with interpretation as follows: CHEST ONE VIEW PORTABLE CLINICAL HISTORY: Pain, radiating to the abdomen. COMPARISON STUDY: 03/08/2017 FINDINGS: The cardiac and mediastinal contours are normal. There is no evidence of focal pulmonary consolidation. There is no evidence of failure. No pleural effusions are visualized.[ No free intraperitoneal air is visualized IMPRESSION: No active disease in the chest. CT ABD/PELVIS IV CONTRAST ONLY CLINICAL HISTORY: Severe epigastric pain and vomiting COMPARISON STUDY: 03/08/2017 TECHNIQUE: Following the IV administration of 91 mL of Optiray-320, CT scan of the abdomen and pelvis was performed from the lung bases to the proximal femurs. Images are reviewed in the axial, sagittal, and coronal planes. IV contrast was administered without complication. A dose lowering technique was utilized adhering to the principles of ALARA. CT DOSE: 551.48 mGy.cm FINDINGS: Lower chest: The heart is normal in size and configuration, without pericardial effusion. The lung bases and pleural spaces are clear. There is a small hiatal hernia with distal esophageal wall thickening Liver: There is severe hepatic steatosis. There is a stable indeterminate 12 mm hyperdense nodule within the right lobe of the liver. Gallbladder: Unremarkable. Spleen: Normal in size and attenuation. Pancreas: Unremarkable. Adrenal glands: Unremarkable. Kidneys: There is a punctate nonobstructing upper pole left renal calculus. No solid renal masses are visualized. There is no hydronephrosis. Bowel: There are no transition zones indicate bowel obstruction. There is no evidence of acute diverticulitis. There are no findings to indicate acute appendicitis. Peritoneum: There is no intraperitoneal free air or abdominal ascites. Vasculature: The abdominal aorta is normal in course and caliber. Adenopathy: None. Pelvic viscera: The bladder, and pelvic viscera are unremarkable. Skeletal structures: No destructive osseous lesions are seen. IMPRESSION: 1. No evidence of bowel obstruction. No evidence of free air 2. Severe hepatic steatosis. Stable indeterminate 12 mm hyperdense nodule within the right lobe of the liver. 3. Punctate nonobstructing left renal calculus 4. No evidence of diverticulitis. No evidence of acute appendicitis. 5. Small hiatal hernia with distal esophageal wall thickening. This may indicate a nonspecific esophagitis. EKG Reviewed EKG and agree with interpretation as follows: 129 bpm, sinus tachycardia Impression Assessment and Plan 32 y/o male with a history of severe hepatic steatosis, esophagitis, HTN, asthma , depression, and PTSD who presented to the ED on 04/27 with RUQ pain, nausea, and vomiting. Pt tachycardic in ED but afebrile and vital signs otherwise stable. EKG no ischemic changes. CXR no acute disease. CT abdomen/pelvis shows severe hepatic steatosis and distal esophageal wall thickening which may indicate a nonspecific esophagitis. Potassium 3.0, sodium 131. Creatinine elevated above baseline at 1.45. Bilirubin elevated, but improving. Lipase normal. RUQ pain, nausea, vomiting, hepatic steatosis of unknown etiology -Admit to med/surg -Consult GI, appreciate recs. Pt was scheduled to see Dr. Mcdaniels this morning -Hepatic steatosis by liver biopsy last month. Hepatitis panel negative Dec 2016 -Dilaudid 1 mg IV q4h prn pain -Zofran 4 mg IV q6h prn nausea -Total bilirubin elevated at 2.6 but much improved compared to the last few months -Clear liquid diet if tolerates -NSS + 20 KCl at 125 cc/hr -Continue Protonix CHEKO secondary to dehydration -Creatinine 1.45 on admission, baseline around 1 -Lactic acid 5.0 secondary to dehydration, no s/s sepsis, recheck in am -IVF as above -Hold lisinopril -Continue to monitor Hypokalemia, hyponatremia in setting of dehydration/vomiting -IVF as above -KCl 10 mEq IV q1h x 4 doses -Check magnesium now, replace prn HTN--stable -Lisinopril held due to CHEKO -Cover with hydralazine 10 mg IV q6h prn SBP >180 Asthma--stable -Continue Advair BID and albuterol prn Depression/PTSD--formerly on amitriptyline, this was tapered off last admission in case it was contributing to liver disease Esophagitis per EGD in December -PPI as above DVT prophylaxis -Enoxaparin 40 mg SC q24h -NANDINI Sinha Code Status -Level I, FULL RESUSCITATION STATUS Patient has a history of hepatitis of undetermined etiology he did miss his outpatient follow-up appointment this week he presents with increased abdominal pain nausea and vomiting gastroenterology did see the patient they do feel this likely could be just a viral gastritis exacerbating underlying symptoms Patient's vitals are stable on presentation he is awake alert he did tolerate some liquid nutrition however he did vomit also of yellow liquid his abdomen is with hyperactive bowel sounds he is soft he is diffusely uncomfortable there is no guarding no rebound organomegaly he is anicteric and there is no jaundice on presentation Nausea vomiting abdominal pain in a patient with history of sterile hepatitis as per GI recommendations supportive care antiemetics and pain control be employed as well as hydration Resuscitation Status VTE Prophylaxis Will order VTE Prophylaxis: Yes
[2017-04-27 09:45] VITALS: BP 132/90; PULSE 124; TEMP 37; O2SAT 95; Ht 185.4 cm; Wt 100.0 kg
[2017-04-27] MEDS ORDERED: HydrALAZINE HCL 20 MG/ML VIAL IV. PRN (09:45)
[2017-04-27] MEDS ORDERED: ALBINS/ INH (10:17)
[2017-04-27] MEDS ORDERED: VNTHFA/IN INH (10:17)
[2017-04-27] MEDS ORDERED: ADVIN25/60 INH (10:20)
[2017-04-27] MEDS: HYDROmorphone INJ 1 MG/ML SYR IV PRN ×3 (10:32→23:17)
[2017-04-27] MEDS: POTASSIUM CHLR 10 MEQ / WTR 10 MEQ in PREMIXED WATER 100 ML IV SCH ×4 (10:44→14:02)
[2017-04-27 10:56] LABS: INR 1.1 (0.9-1.1)
[2017-04-27] MEDS: NSS + 20MEQ KCL 1000ML 1,000 ML IV SCH ×2 (11:59→20:35)
[2017-04-27] MEDS ORDERED: LISI-461 PO (12:44)
--- NOTE | 2017-04-27 13:15 | GASTROINTESTINAL CONSULTATION ---
DATE OF CONSULTATION: 04/27/2017 REASON FOR EVALUATION: Hepatic steatosis and vomiting. HISTORY: The patient is a 32-year-old with a previous history of hepatic steatosis and hepatomegaly. He had a liver biopsy during his last admission, documenting macrosteatosis without fibrosis or biliary changes. The etiology of his steatosis is unclear. The patient had outpatient followup scheduled but failed to follow through. He does not drink any alcohol. He is not on any medications linked to his steatosis. He is not diabetic. He is not overweight. I am not sure what his lipid profile shows. The patient presents with vomiting which is what he presented with during his last hospitalization. He has been unable to keep food or liquids down and is getting dehydrated and his magnesium level was low when he presented to the ER. PAST MEDICAL HISTORY: Remarkable for hepatic steatosis, posttraumatic stress disorder, some bronchospasm. MEDICATIONS: Ventolin, Proventil, Advair Diskus, lisinopril and Protonix. ALLERGIES: LACTOSE, MOLD, PENICILLIN, AMITRIPTYLINE, NAPROSYN, RED DYE. FAMILY HISTORY: Positive for asthma, cancer, diabetes, heart disease, lung disease, hypertension, kidney disease, kidney stones and CVA. SOCIAL HISTORY: The patient is single, lives with his mother. He is unemployed. Does not smoke, does not drink. REVIEW OF SYSTEMS: Positive for right upper quadrant pain and epigastric pain and vomiting. The remainder is negative. PHYSICAL EXAMINATION: GENERAL: The patient appears in no acute distress. VITAL SIGNS: Blood pressure is 116/82, pulse is 100, room air saturation is 94%. ABDOMEN: Shows tenderness throughout the upper abdomen. The liver is palpably enlarged and appears to be tender. MUSCULOSKELETAL: Normal. NEUROLOGIC: Shows him to be awake, alert and oriented. LABORATORY DATA: Shows normal CBC. Normal BUN and creatinine. Alkaline phosphatase is 119. Total protein 7.8, albumin 3.6. Total bilirubin 2.6 with direct of 0.6. AST is 47, ALT 75. Lipase is 100. Lactic acid is elevated at 5. IMPRESSION: The patient has hepatomegaly with significant hepatic steatosis of unclear etiology, documented on liver biopsy during his last hospitalization. Plan on checking a lipid profile. Also start him on vitamin E 400 units a day for its antioxidant effect on the liver. I suspect that his nausea and vomiting may be some intercurrent illness such as a viral gastroenteritis. The patient will be supported with IV rehydration and bowel rest and antiemetics in the meantime. We will follow the patient during his hospital stay.
[2017-04-27 15:29] VITALS: BP 131/88; PULSE 103; TEMP 36.9; O2SAT 94
[2017-04-27] MEDS ORDERED: IV FLUIDS COMPLETED PRN (16:45)
[2017-04-27] MEDS: ENOXAPARIN 40 MG/0.4 ML SYR SQ SCH (17:40)
[2017-04-27] MEDS ORDERED: HYDROmorphone INJ 1 MG/ML SYR ONE (19:03)
[2017-04-27] MEDS: FLUTICASONE/SALMETEROL 250/50 (ADVAIR) 14 PUFF/1 INHALER INH SCH (21:02)
[2017-04-27 23:24] VITALS: BP 114/82; PULSE 100; TEMP 36.4; O2SAT 97
[2017-04-28] MEDS: HYDROmorphone INJ 1 MG/ML SYR IV PRN ×6 (03:06→21:20)
[2017-04-28] MEDS: NSS + 20MEQ KCL 1000ML 1,000 ML IV SCH ×3 (03:06→23:04)
--- NOTE | 2017-04-28 04:35 | EMERGENCY ROOM VISIT NOTE ---
History First contact with patient: 04:30 Chief Complaint: VOMITING Stated Complaint: SEVERE VOMITING,YELLOW TINT TO SKIN AND EYES Nursing Triage Summary: Pt started vomiting on Monday and has been unable to keep anything down since. Pt reports right upper abdominal pain. Pt reports that last time he was here, the doctor said his liver was enlarged. History of Present Illness The patient is a 32 year old male who presents to the Emergency Room with complaints of severe epigastric pain with nausea and vomiting for the past 2 days. Pain is 10 out of 10. Nothing makes it better or worse. It does not radiate. Patient has appointment today with Dr. Holly from GI. He has been suffering with problems with his liver and bilirubin. He has had an extensive workup in the past. Patient with multiple episodes of vomiting without blood or black in it. No diarrhea. Patient denies chest pain, dyspnea, fever, chills , cough, congestion. No recent EGD. Review of Systems An 10 system review of systems was completed with positives and pertinent negatives listed in the HPI. Past Medical/Surgical History Medical Problems: (1) Abdominal pain (2) Asthma (3) Bilateral flank pain (4) Brain bleed (5) Broken back (6) Malingerer (7) Postconcussive syndrome (8) PTSD (post-traumatic stress disorder) (9) Vomiting Social History Problems: (1) Drug-seeking behavior Family History Asthma Cancer Diabetes mellitus FH: heart disease FHx: lung disease Hypertension Kidney disease Kidney stones Stroke Social History Smoking Status: Never Smoker Alcohol Use: none Drug Use: none Marital Status: single Housing Status: lives with family Occupation Status: unemployed Current/Historical Medications Scheduled Albuterol Hfa (Ventolin Hfa), 2-4 PUFFS INH BID Albuterol Sulf (Proventil 0.083% 2.5MG/3ML), 2.5 MG INH PRN Fluticasone Prop/Salmeterol (Advair Diskus 250/50 60 Dose), 2 PUFF INH BID Lisinopril (Lisinopril), 10 MG PO DAILY Pantoprazole (Protonix), 40 MG PO DAILY Scheduled PRN Oxycodone HCl (Oxycodone HCl), 10 MG PO Q4 PRN for Pain Physical Exam Vital Signs Date Time Temp Pulse Resp B/P (MAP) Pulse Ox O2 Delivery O2 Flow Rate FiO2 04/27/17 08:05 37.0 113 18 116/82 94 Room Air 04/27/17 06:43 120 13 127/78 93 Room Air 04/27/17 05:46 118 04/27/17 05:43 121 16 126/94 98 Room Air 04/27/17 05:27 Room Air 04/27/17 04:26 36.9 139 20 122/88 97 Room Air Physical Exam VITALS: Vitals are noted on the nurse's note and reviewed by myself. Vital signs mildly tachycardic. GENERAL: Pleasant male who appears in pain, in no acute distress, nondiaphoretic , well-developed well-nourished. SKIN: The skin was without rashes, erythema, edema, or bruising. There is no tenting of the skin. Capillary reflex less than 2 seconds. HEAD: Normocephalic atraumatic. EARS: External auditory canals clear, tympanic membranes pearly woodward without erythema or effusion bilaterally. EYES: Pupils equal round and reactive to light and accommodation. Conjunctivae without injection, sclerae without icterus. Extraocular movements intact. NOSE: Patent, turbinates without inflammation or discharge. MOUTH: Mucous membranes mildly dry pharynx without erythema or exudate. Uvula midline. Airway patent. Tongue does not deviate. NECK: Supple without nuchal rigidity. No lymphadenopathy. No thyromegaly. Cervical spine is nontender. No JVD. HEART: Regular rate and rhythm without murmurs gallops or rubs. LUNGS: Clear to auscultation bilaterally without wheezes, rales or rhonchi. No retractions or accessory muscle use. ABDOMEN: Positive bowel sounds x 4. Normal tympanic percussion. Soft, tender to palpation epigastric region, without masses or organomegaly. Browning sign negative. No guarding or rebound tenderness. No CVA tenderness MUSCULOSKELETAL: No muscle atrophy, erythema, or edema noted. NEURO: Patient was alert and oriented to person place and time. Normal sensation to light and sharp touch. No focal neurological deficits. Medical Decision & Procedures Laboratory Results 04/27/17 04:56 Red Blood Count 4.91, Mean Corpuscular Volume 88.6, Mean Corpuscular Hemoglobin 31.0, Mean Corpuscular Hemoglobin Concent 34.9, Mean Platelet Volume 10.4, Neutrophils (%) (Auto) 66.8, Lymphocytes (%) (Auto) 19.7, Monocytes (%) (Auto) 13.0, Eosinophils (%) (Auto) 0.1, Basophils (%) (Auto) 0.1, Neutrophils # (Auto ) 6.93, Lymphocytes # (Auto) 2.05, Monocytes # (Auto) 1.35, Eosinophils # (Auto ) 0.01, Basophils # (Auto) 0.01 04/27/17 04:56 Test 04/27/17 04:56 04/27/17 05:04 04/27/17 05:13 04/27/17 05:16 White Blood Count 10.38 K/uL (4.8-10.8) Red Blood Count 4.91 M/uL (4.7-6.1) Hemoglobin 15.2 g/dL (14.0-18.0) Hematocrit 43.5 % (42-52) Mean Corpuscular Volume 88.6 fL (80-100) Mean Corpuscular Hemoglobin 31.0 pg (25-34) Mean Corpuscular Hemoglobin Concent 34.9 g/dl (32-36) Platelet Count 333 K/uL (130-400) Mean Platelet Volume 10.4 fL (7.4-10.4) Neutrophils (%) (Auto) 66.8 % Lymphocytes (%) (Auto) 19.7 % Monocytes (%) (Auto) 13.0 % Eosinophils (%) (Auto) 0.1 % Basophils (%) (Auto) 0.1 % Neutrophils # (Auto) 6.93 K/uL (1.4-6.5) Lymphocytes # (Auto) 2.05 K/uL (1.2-3.4) Monocytes # (Auto) 1.35 K/uL (0.11-0.59) Eosinophils # (Auto) 0.01 K/uL (0-0.5) Basophils # (Auto) 0.01 K/uL (0-0.2) RDW Standard Deviation 47.6 fL (36.4-46.3) RDW Coefficient of Variation 14.7 % (11.5-14.5) Immature Granulocyte % (Auto) 0.3 % Immature Granulocyte # (Auto) 0.03 K/uL (0.00-0.02) Est Creatinine Clear Calc Drug Dose 89.3 ml/min Estimated GFR () 72.3 Estimated GFR (Non- 62.4 BUN/Creatinine Ratio 4.0 (10-20) Calcium Level 11.2 mg/dl (8.5-10.1) Magnesium Level 1.3 mg/dl (1.8-2.4) Total Bilirubin 2.6 mg/dl (0.2-1) Direct Bilirubin 0.6 mg/dl (0-0.2) Aspartate Amino Transf (AST/SGOT) 47 U/L (15-37) Alanine Aminotransferase (ALT/SGPT) 75 U/L (12-78) Alkaline Phosphatase 119 U/L (45-117) Total Protein 7.8 gm/dl (6.4-8.2) Albumin 3.6 gm/dl (3.4-5.0) Triglycerides Level 200 mg/dl (0-150) Cholesterol Level 172 mg/dl (0-200) HDL Cholesterol 35 mg/dl LDL Cholesterol, Calculated 97 mg/dl VLDL Cholesterol, Calculated 40 mg/dl Cholesterol/HDL Ratio 4.9 Lipase 100 U/L (73-393) Bedside Lactic Acid Venous 6.30 mmol/L (0.90-1.70) Bedside Troponin I 0.030 ng/ml (0-0.045) Bedside Hemoglobin 15.0 g/dl (14.0-18.0) Bedside Hematocrit 44 % (42-52) Bedside Sodium 128 mEq/L (135-144) Bedside Potassium 8.1 mEq/L (3.3-5.0) Bedside Chloride 83 mEq/L (101-112) Bedside Total CO2 36 mEq/l (24-31) Anion Gap 18.0 mmol/L (16-25) Bedside Blood Urea Nitrogen 6 mg/dl (7-18) Bedside Creatinine 1.1 mg/dl (0.6-1.3) Bedside Glucose (other) 134 mg/dl (70-99) Bedside Ionized Calcium (To) 1.02 mmol/l (1.12-1.32) Test 04/27/17 05:59 Lactic Acid Level 5.0 mmol/L (0.4-2.0) Medications Administered Medications (Trade) Dose Ordered Sig/Reena Route Start Time Stop Time Status Last Admin Dose Admin Sodium Chloride 1,000 ml @ 999 mls/hr Q1H1M STAT IV 04/27/17 04:34 3/22/18 05:34 DC 04/27/17 05:19 999 MLS/HR Ondansetron HCl (Zofran Inj) 4 mg NOW STAT IV 04/27/17 04:34 04/27/17 04:36 DC 04/27/17 05:15 4 MG Morphine Sulfate (MoRPHine SULFATE INJ) 4 mg NOW STAT IV 04/27/17 04:34 04/27/17 04:36 DC 04/27/17 05:15 4 MG Sodium Chloride 1,000 ml @ 999 mls/hr Q1H1M STAT IV 04/27/17 05:06 04/27/17 06:06 DC 04/27/17 05:19 999 MLS/HR Hydromorphone HCl (Dilaudid Inj) 1 mg NOW STAT IV 04/27/17 05:23 04/27/17 05:25 DC 04/27/17 05:50 1 MG Metoclopramide HCl (Reglan Inj) 10 mg NOW STAT IV 04/27/17 06:02 04/27/17 06:03 DC 04/27/17 06:06 10 MG Lidocaine HCl (Viscous Lidocaine 2% Soln) 10 ml NOW STAT PO 04/27/17 06:25 04/27/17 06:26 DC 04/27/17 06:41 10 ML Al Hydroxide/Mg Hydroxide (Maalox Susp) 30 ml NOW STAT PO 04/27/17 06:25 04/27/17 06:26 DC 04/27/17 06:41 30 ML Hydromorphone HCl (Dilaudid Inj) 1 mg ONE STAT IV 04/27/17 06:37 04/27/17 06:38 DC 04/27/17 06:41 1 MG Sodium Chloride 1,000 ml @ 999 mls/hr Q1H1M STAT IV 04/27/17 06:53 04/27/17 07:53 DC 04/27/17 07:03 999 MLS/HR ED Course Prior records/ancillary studies reviewed. Triage Nursing notes reviewed. Additional history obtained from family The patient's history was concerning for abdominal pain. Differential diagnosis: Etiologies such as appendicitis, diverticulitis, PUD, biliary pathology, UTI, pancreatitis, obstruction, mesenteric ischemia, aortic pathology, infections, inflammatory bowel disease, renal colic, as well as others were entertained. Physical examination findings: As above. ER treatment provided: Morphine, Zofran, Dilaudid, Reglan, GI cocktail On reassessment the patient felt better. Diagnostics interpreted by me: ECG: Normal sinus, normal intervals, no acute ST-T wave changes, rate of 129. Impression sinus tachycardia interpreted by myself The labs revealed elevated lactic acid. I-STAT POC seems like it was a lab error so repeat testing was done on the labs and lactic acid improved. POC BNP panel is improved. Imaging studies: CT scans concerning for esophagitis per stat radiology Chest x-ray no acute consolidation, pneumothorax free of my interpretation Consultation: A consultation was placed with the hospitalist, Dr. Monterroso. the case was discussed and diagnostics were reviewed. The patient was evaluated in the ER for further treatment. Exam and history seem consistent with esophagitis with intractable vomiting and pain. Patient will be evaluated by medicine for possible admission. He was medicated as above and still was in severe discomfort. I believe there was a lab error for the POC testing as his labs in the lab are much improved. He had no acute changes on his EKG with POC potassium being 8.1. I feel like this is a lab error. He was hydrated as above. Patient is agreeable to admit treatment plan of admission. By the evaluation outlined above emergent etiologies such as appendicitis, diverticulitis, PUD, biliary pathology, UTI, pancreatitis, obstruction, mesenteric ischemia, aortic pathology, inflammatory bowel disease, renal colic , as well as others were deemed relatively unlikely. The pt informed about the findings as listed above. All questions were answered and pleased with the treatment. Case reviewed with my attending The chart was completed utilizing [employer] Speech voice recognition software. Grammatical errors, random word insertions, pronoun errors, and incomplete sentences are an occassional consequence of this system due to software limitations, ambient noise, and hardware issues. Any formal questions or concerns about the content, text, or information contained within the body of this dictation should be directly addressed to the physician podiatrist assistant for clarification. Medical Decision as above Medication Reconcilliation Current Medication List: was personally reviewed by me Blood Pressure Screening Patient's blood pressure: Normal blood pressure Impression Primary Impression: Esophagitis Additional Impressions: Intractable vomiting Dehydration Departure Information Dispostion Being Evaluated By Hospitalist Condition FAIR Referrals Noemy Lombardi DO (PCP) Patient Instructions My [facility] Problem Qualifiers
[2017-04-28 07:15] VITALS: BP 132/88; PULSE 87; TEMP 36.6; O2SAT 98
[2017-04-28] MEDS: FLUTICASONE/SALMETEROL 250/50 (ADVAIR) 14 PUFF/1 INHALER INH SCH ×2 (07:21→20:51)
[2017-04-28] MEDS: TOCOPHERYL, DL-ALPHA 400 INTER.UNIT CAP PO SCH (07:22)
[2017-04-28] MEDS: PANTOprazole SOD 40 MG TAB PO SCH (07:22)
[2017-04-28 08:35] LABS: HEMATOCRIT 32.5 % (42-52); HEMOGLOBIN 10.4 g/dL (14.0-18.0); MEAN CELL VOLUME 90.3 fL (80-100); MEAN CORPUSCULAR HEMOGLOBIN 28.9 pg (25-34); MEAN PLATELET VOLUME 9.6 fL (7.4-10.4); PLATELET COUNT 160 K/uL (130-400); RED CELL DISTRIBUTION WIDTH CV 14.7 % (11.5-14.5); RED CELL DISTRIBUTION WIDTH SD 49.3 fL (36.4-46.3); WHITE BLOOD COUNT 3.89 K/uL (4.8-10.8)
[2017-04-28 08:43] LABS: CREATININE 1.06 mg/dl (0.60-1.40); POTASSIUM 3.2 mmol/L (3.5-5.1)
[2017-04-28] MEDS: POTASSIUM CHLR 10 MEQ / WTR 10 MEQ in PREMIXED WATER 100 ML IV SCH ×4 (09:48→15:15)
[2017-04-28] MEDS: MAGNESIUM SULFATE 1GM / D5W 1 GM in PREMIXED IN D5W 100 ML IV SCH ×2 (09:48→11:06)
--- NOTE | 2017-04-28 11:50 | Hospitalist Progress Note ---
Hospitalist Progress Note Date of Service Apr 28, 2017. (Viry Peguero ., JEANINEC) Subjective Pt evaluation today including: conversation w/ patient, conversation w/ family (mother at bedside), physical exam, chart review, lab review, review of inpatient medication list Patient reports no improvement of his RUQ. He is, however, now tolerating a clear liquid diet without vomiting. He does not feel up to a regular diet yet but is agreeable to full liquids. Per nursing, the patient was doing well this morning and then began to complain of more pain after his mother came to bedside. He does have a history of malingering and drug seeking behavior per outpatient and inpatient records. The patient denies fevers, chills, sweats, chest pain, palpitations, claudication, cough, wheezing, shortness of breath, nausea, vomiting, dysuria, hematuria, urinary retention, paralysis, weakness, numbness and tingling. Additional Comments: See HPI for pertinent positives and negatives. All other systems reviewed and negative. (Viry ePguero ., JEANINEC) Objective Vital Signs Date Time Temp Pulse Resp B/P (MAP) Pulse Ox O2 Delivery O2 Flow Rate FiO2 04/28/17 07:27 Room Air 04/28/17 07:15 36.6 87 16 132/88 (103) 98 Room Air 04/27/17 23:24 36.4 100 20 114/82 (93) 97 Room Air 04/27/17 19:30 Room Air 04/27/17 16:40 Room Air 04/27/17 15:29 36.9 103 18 131/88 (102) 94 Room Air (Viry Peguero PA-C) Physical Exam Notes: General appearance: Well-developed, well-nourished, no apparent distress Head: Normocephalic, atraumatic Eyes: Normal inspection, PERRL, EOMI ENT: Normal ENT inspection, hearing grossly normal, pharynx normal Neck: Supple, no JVD, trachea midline Respiratory/Chest: Lungs clear to auscultation, normal breath sounds, no respiratory distress Cardiovascular: Regular rate & rhythm, no gallop, no murmur Abdomen/GI: +RUQ TTP. Normal bowel sounds, soft Extremities/Musculoskeletal: Normal inspection, no calf tenderness, no pedal edema Neurological/Psych: Alert, normal mood/affect, oriented x 3 Skin: Normal color, warm/dry, no rash (Viry Peguero ., PA-C) Laboratory Results Last 24 Hours Test 04/28/17 07:53 White Blood Count 3.89 K/uL Red Blood Count 3.60 M/uL Hemoglobin 10.4 g/dL Hematocrit 32.5 % Mean Corpuscular Volume 90.3 fL Mean Corpuscular Hemoglobin 28.9 pg Mean Corpuscular Hemoglobin Concent 32.0 g/dl RDW Standard Deviation 49.3 fL RDW Coefficient of Variation 14.7 % Platelet Count 160 K/uL Mean Platelet Volume 9.6 fL Platelet Estimate NORMAL Sodium Level 134 mmol/L Potassium Level 3.2 mmol/L Chloride Level 97 mmol/L Carbon Dioxide Level 30 mmol/L Anion Gap 7.0 mmol/L Blood Urea Nitrogen 8 mg/dl Creatinine 1.06 mg/dl Est Creatinine Clear Calc Drug Dose 122.1 ml/min Estimated GFR () 105.6 Estimated GFR (Non- 91.1 BUN/Creatinine Ratio 7.1 Random Glucose 91 mg/dl Lactic Acid Level 0.9 mmol/L Calcium Level 8.0 mg/dl Magnesium Level 1.4 mg/dl (Viry Peguero ., PA-C) Assessment and Plan 32 y/o male with a history of severe hepatic steatosis, esophagitis, HTN, asthma , depression, and PTSD who presented to the ED on 04/27 with RUQ pain, nausea, and vomiting. Pt tachycardic in ED but afebrile and vital signs otherwise stable. EKG no ischemic changes. CXR no acute disease. CT abdomen/pelvis shows severe hepatic steatosis and distal esophageal wall thickening which may indicate a nonspecific esophagitis. Potassium 3.0, sodium 131. Creatinine elevated above baseline at 1.45. Bilirubin elevated, but improving. Lipase normal. RUQ pain, nausea, vomiting, hepatic steatosis of unknown etiology--improving -Admit to med/surg -Consult GI, appreciate recs: Will check lipid panel and start vitamin E for antioxidant effect on liver. Current symptoms likely due to viral gastroenteritis, continue supportive care. -Hepatic steatosis by liver biopsy last month. Hepatitis panel negative Dec 2016 -Lipid panel shows triglycerides elevated at 200, total cholesterol 172, non- HDL 137 -Dilaudid increased to 1 mg IV q3h prn pain -Zofran 4 mg IV q6h prn nausea -Bilirubin elevated but improved compared to previous -Increase to full liquid diet as tolerated -Decrease IVF to NSS + 20 KCl at 75 cc/hr as now tolerating some diet -Continue Protonix -Pt had been unable to follow up/establish with hepatology at [place] due to [facility] insurance, Nurse Navigator will set up referral for hepatology at [facility] [place] secondary to dehydration--resolved -Creatinine 1.06 on 04/28, down from 1.45 -Lactic acid 0.9 on 04/28, down from 5.0 -IVF as above -Resume lisinopril -Continue to monitor Hypokalemia, hypomagnesemia, hyponatremia in setting of dehydration/vomiting-- ongoing -IVF as above -Potassium 3.2 on 04/28, up from 3.0. IVF as above, KCl 10 mEq IV q1h x 4 doses -Magnesium 1.4 on 04/28, up from 1.3. Give magnesium sulfate 2 gm IV -Hyponatremia resolving with IVF HTN--stable -Resume lisinopril -Cover with hydralazine 10 mg IV q6h prn SBP >180 Asthma--stable -Continue Advair BID and albuterol prn Depression/PTSD--formerly on amitriptyline, this was tapered off last admission in case it was contributing to liver disease Esophagitis per EGD in December -PPI as above DVT prophylaxis -Enoxaparin 40 mg SC q24h -NANDINI overton and SCDs Code Status -Level I, FULL RESUSCITATION STATUS (Viry Peguero ., PA-C) PA Physician Supervision Note: I interviewed and examined the patient. Discussed with Viry Peguero PAC and agree with findings and plan as documented in the note. Any exceptions or clarifications are listed here: None Patient is clinically improved with hydration. GI medicine started antioxidants to help his liver inflammation he has had variable improvement in his electrolytes the requiring supplementation is tolerating advancing diet Temperature 36 8 pulse 86 respiration 16 BP 132/86 His physical exam he still appears to be in pain is a flat affect his abdomen is normal active bowel sounds soft mildly distended and tender throughout Patient with unexplained steatohepatitis being worked up by [facility] gastroenterology here with a gastrointestinal symptoms that GI med feels is secondary to a viral illness with supportive care replacing electrolytes hopeful the patient of advancing diet and return to outpatient workup Documented By: Tab Mendoza (Tab Mendoza M.D.)
[2017-04-28 15:09] VITALS: BP 153/90; PULSE 105; TEMP 36.9; O2SAT 96
--- NOTE | 2017-04-28 15:16 | Gastroenterology Progress Note ---
Progress Note Date of Service: Apr 28, 2017 Subjective Pt evaluation today including: conversation w/ patient, conversation w/ family (mother), physical exam, chart review, lab review, review of studies, review of inpatient medication list cc f/u abd pain, n/v HPI Pt states abd pain 8-9/10 but tolerated clear liquids without vomiting and can get up and walk some. Review of Systems Respiratory: No shortness of breath Cardiac: No chest pain Medications Current Inpatient Medications Medications (Trade) Dose Ordered Sig/Reena Route Start Time Stop Time Status Last Admin Dose Admin Ioversol (Optiray 320) 100 ml UD PRN IV 04/27/17 05:15 05/01/17 05:14 Enoxaparin Sodium (Lovenox Inj) 40 mg Q24H SQ 04/27/17 18:00 05/27/17 17:59 04/27/17 17:40 40 MG Acetaminophen (Tylenol Tab) 650 mg Q4H PRN PO 04/27/17 09:15 05/27/17 09:14 Al Hydrox/Mg Hydrox/Simethicone (Maalox Max Susp) 15 ml Q4H PRN PO 04/27/17 09:15 05/27/17 09:14 Magnesium Hydroxide (Milk Of Magnesia Susp) 30 ml Q6H PRN PO 04/27/17 09:15 05/27/17 09:14 Polyethylene (Miralax Powder Packet) 17 gm DAILY PRN PO 04/27/17 09:15 05/27/17 09:14 Ondansetron HCl (Zofran Inj) 4 mg Q6H PRN IV 04/27/17 09:15 05/27/17 09:14 04/27/17 19:28 4 MG Potassium Chloride/Sodium Chloride 1,000 ml @ 75 mls/hr [id number] IV 04/27/17 10:30 05/27/17 10:29 04/28/17 03:06 125 MLS/HR Albuterol (Ventolin Hfa Inhaler) 2 puffs Q4H PRN INH 04/27/17 09:15 05/27/17 09:14 Salmeterol Xinafoate/ Fluticasone (Advair Diskus 250/50 Inh) 2 puff BID INH 04/27/17 21:00 05/27/17 20:59 04/28/17 07:21 2 PUFF Pantoprazole Sodium (Protonix Tab) 40 mg DAILY PO 04/28/17 09:00 05/28/17 08:59 04/28/17 07:22 40 MG Hydralazine HCl (HydrALAZINE INJ) 10 mg Q6H PRN IV. 04/27/17 09:45 05/27/17 09:44 [id number] Acetate (Vitamin E Cap) 400 interunit QAM PO 04/28/17 09:00 05/28/17 08:59 04/28/17 07:22 400 INTERUNIT Miscellaneous (Iv Fluids Completed) 1 ea PRN PRN N/A 04/27/17 16:45 04/27/18 16:44 Hydromorphone HCl (Dilaudid Inj) 1 mg Q3H PRN IV 04/27/17 18:30 05/11/17 09:14 04/28/17 14:56 1 MG Objective Vital Signs Date Time Temp Pulse Resp B/P (MAP) Pulse Ox O2 Delivery O2 Flow Rate FiO2 04/28/17 07:27 Room Air 04/28/17 07:15 36.6 87 16 132/88 (103) 98 Room Air 04/27/17 23:24 36.4 100 20 114/82 (93) 97 Room Air 04/27/17 19:30 Room Air 04/27/17 16:40 Room Air 04/27/17 15:29 36.9 103 18 131/88 (102) 94 Room Air Physical Exam General Appearance: WD/WN, no apparent distress Respiratory/Chest: lungs clear, no respiratory distress Cardiovascular: regular rate, rhythm, no edema Abdomen: normal bowel sounds, soft, no organomegaly, no pulsatile mass, + guarding (RUQ but no rebound) Neurologic/Psych: alert, normal mood/affect, oriented x 3 Skin: normal color Laboratory Results Last 24 Hours Test 04/28/17 07:53 White Blood Count 3.89 K/uL Red Blood Count 3.60 M/uL Hemoglobin 10.4 g/dL Hematocrit 32.5 % Mean Corpuscular Volume 90.3 fL Mean Corpuscular Hemoglobin 28.9 pg Mean Corpuscular Hemoglobin Concent 32.0 g/dl RDW Standard Deviation 49.3 fL RDW Coefficient of Variation 14.7 % Platelet Count 160 K/uL Mean Platelet Volume 9.6 fL Platelet Estimate NORMAL Sodium Level 134 mmol/L Potassium Level 3.2 mmol/L Chloride Level 97 mmol/L Carbon Dioxide Level 30 mmol/L Anion Gap 7.0 mmol/L Blood Urea Nitrogen 8 mg/dl Creatinine 1.06 mg/dl Est Creatinine Clear Calc Drug Dose 122.1 ml/min Estimated GFR () 105.6 Estimated GFR (Non- 91.1 BUN/Creatinine Ratio 7.1 Random Glucose 91 mg/dl Lactic Acid Level 0.9 mmol/L Calcium Level 8.0 mg/dl Magnesium Level 1.4 mg/dl Assessment and Plan RUQ pain--stretch of liver capsule from steatosis vs acalculous cholecystitis-- recommend HIDA with GB EF but needs to be NPO and off narcotics and all oral and IV meds for minimum 6 hours prior. Not available on weekend. HIDA in past not accurate given severity of liver process. If patient still inpt then do monday. Discussed with nuc med and will order it in case he is still inpt. . Otherwise as outpt nausea/vomiting--secondary to process above improved elevated LFTS--severe steatosis, possibly Elavil severe steatosis--unclear etiology, sober for 5 years, Trigs elevated but not to extent to explain. Recommend [facility] hepatology since [facility] not taking his insurance.
[2017-04-28] MEDS ORDERED: LISINOPRIL 10 MG TAB PO ONE (16:15)
[2017-04-28] MEDS: ENOXAPARIN 40 MG/0.4 ML SYR SQ SCH (18:08)
[2017-04-28 22:48] VITALS: BP 134/86; PULSE 104; TEMP 36.8; O2SAT 96
[2017-04-29] MEDS: HYDROmorphone INJ 1 MG/ML SYR IV PRN ×8 (00:22→22:43)
[2017-04-29] MEDS: NSS + 20MEQ KCL 1000ML 1,000 ML IV SCH ×3 (06:29→19:55)
[2017-04-29 07:13] VITALS: BP 141/87; PULSE 83; TEMP 37; O2SAT 98
[2017-04-29 07:57] LABS: BASO % 0.3 %; BASO ABS # 0.01 K/uL (0-0.2); EOS % 1.4 %; EOS ABS # 0.05 K/uL (0-0.5); HEMATOCRIT 31.1 % (42-52); HEMOGLOBIN 10.1 g/dL (14.0-18.0); IG# 0.02 K/uL (0.00-0.02); LYMPH % 32.4 %; MEAN CELL VOLUME 91.5 fL (80-100); MEAN CORPUSCULAR HEMOGLOBIN 29.7 pg (25-34); MEAN CORPUSCULAR HGB CONC 32.5 g/dl (32-36); MEAN PLATELET VOLUME 9.6 fL (7.4-10.4); MONO % 10.3 %; MONO ABS # 0.38 K/uL (0.11-0.59); NEUT % 55.1 %; NEUT ABS # 2.04 K/uL (1.4-6.5); PLATELET COUNT 153 K/uL (130-400); RED CELL DISTRIBUTION WIDTH CV 14.6 % (11.5-14.5); RED CELL DISTRIBUTION WIDTH SD 48.8 fL (36.4-46.3)
[2017-04-29] MEDS: LISINOPRIL 10 MG TAB PO SCH (08:34)
[2017-04-29] MEDS: TOCOPHERYL, DL-ALPHA 400 INTER.UNIT CAP PO SCH (08:34)
[2017-04-29] MEDS: PANTOprazole SOD 40 MG TAB PO SCH (08:34)
[2017-04-29] MEDS: FLUTICASONE/SALMETEROL 250/50 (ADVAIR) 14 PUFF/1 INHALER INH SCH ×2 (08:34→20:59)
[2017-04-29 08:43] LABS: ALBUMIN 2.8 gm/dl (3.4-5.0); CALCIUM 7.8 mg/dl (8.5-10.1); CREATININE 0.87 mg/dl (0.60-1.40); POTASSIUM 3.7 mmol/L (3.5-5.1); TOTAL PROTEIN 5.9 gm/dl (6.4-8.2)
--- NOTE | 2017-04-29 11:35 | Gastroenterology Progress Note ---
Progress Note Date of Service: Apr 29, 2017 Subjective Pt evaluation today including: conversation w/ patient, physical exam, chart review, lab review, review of studies, review of inpatient medication list CC f/u abd pain HPI Pt states abd pain still bad in RUQ feels like someone squeezing a football. Nausea but not trinity vomiting on full liquid diet. Review of Systems Respiratory: No shortness of breath Cardiac: No chest pain Medications Current Inpatient Medications Medications (Trade) Dose Ordered Sig/Reena Route Start Time Stop Time Status Last Admin Dose Admin Ioversol (Optiray 320) 100 ml UD PRN IV 04/27/17 05:15 05/01/17 05:14 Enoxaparin Sodium (Lovenox Inj) 40 mg Q24H SQ 04/27/17 18:00 05/27/17 17:59 04/28/17 18:08 40 MG Acetaminophen (Tylenol Tab) 650 mg Q4H PRN PO 04/27/17 09:15 05/27/17 09:14 Al Hydrox/Mg Hydrox/Simethicone (Maalox Max Susp) 15 ml Q4H PRN PO 04/27/17 09:15 05/27/17 09:14 Magnesium Hydroxide (Milk Of Magnesia Susp) 30 ml Q6H PRN PO 04/27/17 09:15 05/27/17 09:14 Polyethylene (Miralax Powder Packet) 17 gm DAILY PRN PO 04/27/17 09:15 05/27/17 09:14 Ondansetron HCl (Zofran Inj) 4 mg Q6H PRN IV 04/27/17 09:15 05/27/17 09:14 04/27/17 19:28 4 MG Potassium Chloride/Sodium Chloride 1,000 ml @ 75 mls/hr [id number] IV 04/27/17 10:30 05/27/17 10:29 04/29/17 06:29 75 MLS/HR Albuterol (Ventolin Hfa Inhaler) 2 puffs Q4H PRN INH 04/27/17 09:15 05/27/17 09:14 Salmeterol Xinafoate/ Fluticasone (Advair Diskus 250/50 Inh) 2 puff BID INH 04/27/17 21:00 05/27/17 20:59 04/29/17 08:34 2 PUFF Pantoprazole Sodium (Protonix Tab) 40 mg DAILY PO 04/28/17 09:00 05/28/17 08:59 04/29/17 08:34 40 MG Hydralazine HCl (HydrALAZINE INJ) 10 mg Q6H PRN IV. 04/27/17 09:45 05/27/17 09:44 [id number] Acetate (Vitamin E Cap) 400 interunit QAM PO 04/28/17 09:00 05/28/17 08:59 04/29/17 08:34 400 INTERUNIT Miscellaneous (Iv Fluids Completed) 1 ea PRN PRN N/A 04/27/17 16:45 04/27/18 16:44 Hydromorphone HCl (Dilaudid Inj) 1 mg Q3H PRN IV 04/27/17 18:30 05/11/17 09:14 04/29/17 09:46 1 MG Lisinopril (Zestril Tab) 10 mg DAILY PO 04/29/17 09:00 05/29/17 08:59 04/29/17 08:34 10 MG Hydromorphone HCl (Dilaudid Inj) 1.5 mg Q3H PRN IV 04/29/17 11:00 05/13/17 10:59 Objective Vital Signs Date Time Temp Pulse Resp B/P (MAP) Pulse Ox O2 Delivery O2 Flow Rate FiO2 04/29/17 07:50 Room Air 04/29/17 07:13 37.0 83 18 141/87 (105) 98 Room Air 04/28/17 23:46 Room Air 04/28/17 22:48 36.8 104 16 134/86 (102) 96 Room Air 04/28/17 15:12 Room Air 04/28/17 15:09 36.9 105 18 153/90 (111) 96 Room Air Physical Exam General Appearance: WD/WN, no apparent distress Respiratory/Chest: lungs clear, no respiratory distress Cardiovascular: regular rate, rhythm, no edema Abdomen: normal bowel sounds, soft, no organomegaly, no pulsatile mass, + pertinent finding (subjective RUQ pain but no guarding nor rebound with light palpation) Neurologic/Psych: alert, normal mood/affect, oriented x 3 Skin: normal color Laboratory Results Last 24 Hours Test 04/29/17 07:33 White Blood Count 3.70 K/uL Red Blood Count 3.40 M/uL Hemoglobin 10.1 g/dL Hematocrit 31.1 % Mean Corpuscular Volume 91.5 fL Mean Corpuscular Hemoglobin 29.7 pg Mean Corpuscular Hemoglobin Concent 32.5 g/dl Platelet Count 153 K/uL Mean Platelet Volume 9.6 fL Neutrophils (%) (Auto) 55.1 % Lymphocytes (%) (Auto) 32.4 % Monocytes (%) (Auto) 10.3 % Eosinophils (%) (Auto) 1.4 % Basophils (%) (Auto) 0.3 % Neutrophils # (Auto) 2.04 K/uL Lymphocytes # (Auto) 1.20 K/uL Monocytes # (Auto) 0.38 K/uL Eosinophils # (Auto) 0.05 K/uL Basophils # (Auto) 0.01 K/uL RDW Standard Deviation 48.8 fL RDW Coefficient of Variation 14.6 % Immature Granulocyte % (Auto) 0.5 % Immature Granulocyte # (Auto) 0.02 K/uL Sodium Level 138 mmol/L Potassium Level 3.7 mmol/L Chloride Level 104 mmol/L Carbon Dioxide Level 29 mmol/L Anion Gap 5.0 mmol/L Blood Urea Nitrogen 4 mg/dl Creatinine 0.87 mg/dl Est Creatinine Clear Calc Drug Dose 148.8 ml/min Estimated GFR () 130.5 Estimated GFR (Non- 112.6 BUN/Creatinine Ratio 4.5 Random Glucose 82 mg/dl Calcium Level 7.8 mg/dl Magnesium Level 2.0 mg/dl Total Bilirubin 1.5 mg/dl Aspartate Amino Transf (AST/SGOT) 55 U/L Alanine Aminotransferase (ALT/SGPT) 49 U/L Alkaline Phosphatase 75 U/L Total Protein 5.9 gm/dl Albumin 2.8 gm/dl Globulin 3.1 gm/dl Albumin/Globulin Ratio 0.9 Assessment and Plan RUQ pain--stretch of liver capsule from steatosis vs acalculous cholecystitis-- recommend HIDA with GB EF but needs to be NPO and off narcotics and all oral and IV meds for minimum 6 hours prior. HIDA with EF monday if patient still inpatient nausea/vomiting--not vomiting elevated LFTS--severe steatosis, possibly Elavil--improved severe steatosis--unclear etiology, sober for 5 years, Trigs elevated but not to extent to explain. Recommend [facility] hepatology since [facility] not taking [facility] insurance. Discussed with DR Mendoza. Supportive care for now.
[2017-04-29 15:48] VITALS: BP 145/93; PULSE 92; TEMP 37; O2SAT 99
--- NOTE | 2017-04-29 16:30 | Progress Note ---
Subjective Date of Service: Apr 29, 2017. Subjective this pt has RUQ pain that is a squeezing and post prandial pain, GI medicine is considering HIDA scan this week. Problem List Medical Problems: (1) Acute renal failure Status: Acute (2) Anemia Status: Acute (3) Back pain Status: Acute (4) Bilateral flank pain Status: Acute (5) Biliary obstruction Status: Acute (6) Contusion of foot Status: Acute (7) Dehydration Status: Acute (8) Elevated bilirubin Status: Acute (9) Esophagitis Status: Acute (10) Flank pain Status: Acute (11) Headache Status: Acute (12) Hematuria Status: Acute (13) Hematuria Status: Acute (14) Hypertension Status: Acute (15) Hypokalemia Status: Acute (16) Hypokalemia Status: Acute (17) Hypomagnesemia Status: Acute (18) Intractable vomiting Status: Acute (19) Lumbar back pain Status: Acute (20) UTI (urinary tract infection) Status: Acute (21) Vomiting Status: Acute Review of Systems Constitutional: No fever, No chills, No weakness, No fatigue Respiratory: No cough, No shortness of breath Cardiac: No chest pain, No edema Abdomen: + pain, + nausea, No vomiting, No diarrhea Male : No dysuria, No urinary frequency, No incontinence Psychiatric: No depression symptoms, No anhedonism, No anxiety Objective Vital Signs Date Time Temp Pulse Resp B/P (MAP) Pulse Ox O2 Delivery O2 Flow Rate FiO2 04/29/17 15:48 37.0 92 16 145/93 (110) 99 04/29/17 07:50 Room Air 04/29/17 07:13 37.0 83 18 141/87 (105) 98 Room Air 04/28/17 23:46 Room Air 04/28/17 22:48 36.8 104 16 134/86 (102) 96 Room Air Physical Exam General Appearance: WD/WN, + mild distress Eyes: normal inspection, sclerae normal Neck: supple, no JVD Respiratory/Chest: chest non-tender, lungs clear, normal breath sounds Cardiovascular: regular rate, rhythm, no murmur Abdomen: normal bowel sounds, + guarding, + tenderness Extremities: no pedal edema, no calf tenderness Neurologic/Psychiatric: alert, oriented x 3 Laboratory Results Last 24 Hours Test 04/29/17 07:33 White Blood Count 3.70 K/uL Red Blood Count 3.40 M/uL Hemoglobin 10.1 g/dL Hematocrit 31.1 % Mean Corpuscular Volume 91.5 fL Mean Corpuscular Hemoglobin 29.7 pg Mean Corpuscular Hemoglobin Concent 32.5 g/dl Platelet Count 153 K/uL Mean Platelet Volume 9.6 fL Neutrophils (%) (Auto) 55.1 % Lymphocytes (%) (Auto) 32.4 % Monocytes (%) (Auto) 10.3 % Eosinophils (%) (Auto) 1.4 % Basophils (%) (Auto) 0.3 % Neutrophils # (Auto) 2.04 K/uL Lymphocytes # (Auto) 1.20 K/uL Monocytes # (Auto) 0.38 K/uL Eosinophils # (Auto) 0.05 K/uL Basophils # (Auto) 0.01 K/uL RDW Standard Deviation 48.8 fL RDW Coefficient of Variation 14.6 % Immature Granulocyte % (Auto) 0.5 % Immature Granulocyte # (Auto) 0.02 K/uL Sodium Level 138 mmol/L Potassium Level 3.7 mmol/L Chloride Level 104 mmol/L Carbon Dioxide Level 29 mmol/L Anion Gap 5.0 mmol/L Blood Urea Nitrogen 4 mg/dl Creatinine 0.87 mg/dl Est Creatinine Clear Calc Drug Dose 148.8 ml/min Estimated GFR () 130.5 Estimated GFR (Non- 112.6 BUN/Creatinine Ratio 4.5 Random Glucose 82 mg/dl Calcium Level 7.8 mg/dl Magnesium Level 2.0 mg/dl Total Bilirubin 1.5 mg/dl Aspartate Amino Transf (AST/SGOT) 55 U/L Alanine Aminotransferase (ALT/SGPT) 49 U/L Alkaline Phosphatase 75 U/L Total Protein 5.9 gm/dl Albumin 2.8 gm/dl Globulin 3.1 gm/dl Albumin/Globulin Ratio 0.9 Assessment and Plan 32 y/o male with a history of severe hepatic steatosis, esophagitis, HTN, asthma , depression, and PTSD who presented to the ED on 04/27 with RUQ pain, nausea, and vomiting. CT abdomen/pelvis shows severe hepatic steatosis and distal esophageal wall thickening which may indicate a nonspecific esophagitis. RUQ pain, nausea, vomiting, hepatic steatosis -Consult GI, started vitamin E for antioxidant effect on liver, continue supportive care. -Hepatic steatosis by liver biopsy last month. Hepatitis panel negative Dec 2016 -Continue Protonix CHEKO secondary to dehydration--resolved -Resume lisinopril Hypokalemia, hypomagnesemia, hyponatremia in setting of dehydration/vomiting evaluate and replete HTN--stable on lisinopril, plus hydralazine 10 mg IV q6h prn SBP >180 Asthma--Advair BID and albuterol prn Depression/PTSD--formerly on amitriptyline, this was tapered off last admission in case it was contributing to liver disease Esophagitis per EGD in December-PPI DVT prophylaxis-Enoxaparin 40 mg SC q24h Code Status-Level I, FULL RESUSCITATION STATUS
[2017-04-29] MEDS: ENOXAPARIN 40 MG/0.4 ML SYR SQ SCH (19:16)
[2017-04-29] MEDS ORDERED: NURSING VERBAL MED ORDER ONE (20:00)
[2017-04-29 22:55] VITALS: BP 155/95; PULSE 100; TEMP 37.3; O2SAT 97
[2017-04-30] MEDS: HYDROmorphone INJ 1 MG/ML SYR IV PRN ×7 (02:51→23:07)
[2017-04-30 07:14] LABS: BASO % 0.4 %; BASO ABS # 0.02 K/uL (0-0.2); EOS % 2.2 %; EOS ABS # 0.11 K/uL (0-0.5); HEMATOCRIT 34.2 % (42-52); HEMOGLOBIN 10.9 g/dL (14.0-18.0); IG# 0.02 K/uL (0.00-0.02); LYMPH % 26.1 %; LYMPH ABS # 1.29 K/uL (1.2-3.4); MEAN CELL VOLUME 93.7 fL (80-100); MEAN CORPUSCULAR HEMOGLOBIN 29.9 pg (25-34); MEAN CORPUSCULAR HGB CONC 31.9 g/dl (32-36); MEAN PLATELET VOLUME 9.8 fL (7.4-10.4); MONO % 10.9 %; MONO ABS # 0.54 K/uL (0.11-0.59); NEUT ABS # 2.97 K/uL (1.4-6.5); PLATELET COUNT 182 K/uL (130-400); RED CELL DISTRIBUTION WIDTH CV 14.9 % (11.5-14.5); RED CELL DISTRIBUTION WIDTH SD 50.5 fL (36.4-46.3); WHITE BLOOD COUNT 4.95 K/uL (4.8-10.8)
[2017-04-30 07:17] VITALS: BP 161/99; PULSE 93; TEMP 37.4; O2SAT 98
[2017-04-30] MEDS: LISINOPRIL 10 MG TAB PO SCH (07:39)
[2017-04-30] MEDS: PANTOprazole SOD 40 MG TAB PO SCH (07:39)
[2017-04-30] MEDS: TOCOPHERYL, DL-ALPHA 400 INTER.UNIT CAP PO SCH (07:39)
[2017-04-30] MEDS: FLUTICASONE/SALMETEROL 250/50 (ADVAIR) 14 PUFF/1 INHALER INH SCH ×2 (07:40→20:27)
[2017-04-30 07:56] LABS: ALBUMIN 2.9 gm/dl (3.4-5.0); CREATININE 0.94 mg/dl (0.60-1.40); POTASSIUM 3.9 mmol/L (3.5-5.1)
[2017-04-30 07:59] LABS: TOTAL PROTEIN 6.3 gm/dl (6.4-8.2)
[2017-04-30] MEDS: NSS + 20MEQ KCL 1000ML 1,000 ML IV SCH (08:03)
--- NOTE | 2017-04-30 13:10 | Gastroenterology Progress Note ---
Progress Note Date of Service: Apr 30, 2017 Subjective Pt evaluation today including: conversation w/ patient, conversation w/ family (mother), physical exam, chart review, lab review, review of studies, review of inpatient medication list CC f/u RUQ pain, nausea HPI Nausea the same but no vomiting. Abd pain still bad and no change. Review of Systems Respiratory: No shortness of breath Cardiac: No chest pain Medications Current Inpatient Medications Medications (Trade) Dose Ordered Sig/Reena Route Start Time Stop Time Status Last Admin Dose Admin Ioversol (Optiray 320) 100 ml UD PRN IV 04/27/17 05:15 05/01/17 05:14 Enoxaparin Sodium (Lovenox Inj) 40 mg Q24H SQ 04/27/17 18:00 05/27/17 17:59 04/29/17 19:16 40 MG Acetaminophen (Tylenol Tab) 650 mg Q4H PRN PO 04/27/17 09:15 05/27/17 09:14 Al Hydrox/Mg Hydrox/Simethicone (Maalox Max Susp) 15 ml Q4H PRN PO 04/27/17 09:15 05/27/17 09:14 Magnesium Hydroxide (Milk Of Magnesia Susp) 30 ml Q6H PRN PO 04/27/17 09:15 05/27/17 09:14 Polyethylene (Miralax Powder Packet) 17 gm DAILY PRN PO 04/27/17 09:15 05/27/17 09:14 Ondansetron HCl (Zofran Inj) 4 mg Q6H PRN IV 04/27/17 09:15 05/27/17 09:14 04/27/17 19:28 4 MG Potassium Chloride/Sodium Chloride 1,000 ml @ 75 mls/hr [id number] IV 04/27/17 10:30 05/27/17 10:29 04/30/17 08:03 75 MLS/HR Albuterol (Ventolin Hfa Inhaler) 2 puffs Q4H PRN INH 04/27/17 09:15 05/27/17 09:14 Salmeterol Xinafoate/ Fluticasone (Advair Diskus 250/50 Inh) 2 puff BID INH 04/27/17 21:00 05/27/17 20:59 04/30/17 07:40 2 PUFF Pantoprazole Sodium (Protonix Tab) 40 mg DAILY PO 04/28/17 09:00 05/28/17 08:59 04/30/17 07:39 40 MG Hydralazine HCl (HydrALAZINE INJ) 10 mg Q6H PRN IV. 04/27/17 09:45 05/27/17 09:44 [id number] Acetate (Vitamin E Cap) 400 interunit QAM PO 04/28/17 09:00 05/28/17 08:59 04/30/17 07:39 400 INTERUNIT Miscellaneous (Iv Fluids Completed) 1 ea PRN PRN N/A 04/27/17 16:45 04/27/18 16:44 Hydromorphone HCl (Dilaudid Inj) 1 mg Q3H PRN IV 04/27/17 18:30 05/11/17 09:14 04/29/17 19:17 1 MG Lisinopril (Zestril Tab) 10 mg DAILY PO 04/29/17 09:00 05/29/17 08:59 04/30/17 07:39 10 MG Hydromorphone HCl (Dilaudid Inj) 1.5 mg Q3H PRN IV 04/29/17 11:00 05/13/17 10:59 04/30/17 12:29 1.5 MG Objective Vital Signs Date Time Temp Pulse Resp B/P (MAP) Pulse Ox O2 Delivery O2 Flow Rate FiO2 04/30/17 07:35 Room Air 04/30/17 07:17 37.4 93 16 161/99 (119) 98 Room Air 04/29/17 23:14 Room Air 04/29/17 22:55 37.3 100 18 155/95 (115) 97 Room Air 04/29/17 16:00 Room Air 04/29/17 15:48 37.0 92 16 145/93 (110) 99 Physical Exam General Appearance: WD/WN, no apparent distress Respiratory/Chest: lungs clear, no respiratory distress Cardiovascular: regular rate, rhythm, no edema Abdomen: normal bowel sounds, soft, no organomegaly, no pulsatile mass, + guarding (guarding RUQ but no rebound) Neurologic/Psych: no motor/sensory deficits, alert, normal mood/affect, oriented x 3 Skin: normal color, no jaundice Laboratory Results Last 24 Hours Test 04/30/17 06:31 White Blood Count 4.95 K/uL Red Blood Count 3.65 M/uL Hemoglobin 10.9 g/dL Hematocrit 34.2 % Mean Corpuscular Volume 93.7 fL Mean Corpuscular Hemoglobin 29.9 pg Mean Corpuscular Hemoglobin Concent 31.9 g/dl Platelet Count 182 K/uL Mean Platelet Volume 9.8 fL Neutrophils (%) (Auto) 60.0 % Lymphocytes (%) (Auto) 26.1 % Monocytes (%) (Auto) 10.9 % Eosinophils (%) (Auto) 2.2 % Basophils (%) (Auto) 0.4 % Neutrophils # (Auto) 2.97 K/uL Lymphocytes # (Auto) 1.29 K/uL Monocytes # (Auto) 0.54 K/uL Eosinophils # (Auto) 0.11 K/uL Basophils # (Auto) 0.02 K/uL RDW Standard Deviation 50.5 fL RDW Coefficient of Variation 14.9 % Immature Granulocyte % (Auto) 0.4 % Immature Granulocyte # (Auto) 0.02 K/uL Sodium Level 137 mmol/L Potassium Level 3.9 mmol/L Chloride Level 104 mmol/L Carbon Dioxide Level 29 mmol/L Anion Gap 4.0 mmol/L Blood Urea Nitrogen 3 mg/dl Creatinine 0.94 mg/dl Est Creatinine Clear Calc Drug Dose 137.7 ml/min Estimated GFR () 122.1 Estimated GFR (Non- 105.4 BUN/Creatinine Ratio 3.1 Random Glucose 74 mg/dl Calcium Level 8.0 mg/dl Magnesium Level 2.0 mg/dl Total Bilirubin 1.6 mg/dl Aspartate Amino Transf (AST/SGOT) 60 U/L Alanine Aminotransferase (ALT/SGPT) 56 U/L Alkaline Phosphatase 82 U/L Total Protein 6.3 gm/dl Albumin 2.9 gm/dl Globulin 3.4 gm/dl Albumin/Globulin Ratio 0.9 Assessment and Plan RUQ pain--stretch of liver capsule from steatosis vs acalculous cholecystitis-- recommend HIDA with GB EF but needs to be NPO and off narcotics and all oral and IV meds for minimum 6 hours prior. HIDA with EF monday . nausea/vomiting--not vomiting elevated LFTS--severe steatosis, possibly Elavil--improved severe steatosis--unclear etiology, sober for 5 years, Trigs elevated but not to extent to explain. Recommend [facility] hepatology since [facility] not taking [facility]. I am going off service tomorrow 05/[address] Aguilar assuming GI care then.
--- NOTE | 2017-04-30 13:26 | Progress Note ---
Subjective Date of Service: Apr 30, 2017. Subjective this pt is with persistent pain in the right upper quadrant, worsened post prandially taking fairly frequent Dilaudid treatment Problem List Medical Problems: (1) Acute renal failure Status: Acute (2) Anemia Status: Acute (3) Back pain Status: Acute (4) Bilateral flank pain Status: Acute (5) Biliary obstruction Status: Acute (6) Contusion of foot Status: Acute (7) Dehydration Status: Acute (8) Elevated bilirubin Status: Acute (9) Esophagitis Status: Acute (10) Flank pain Status: Acute (11) Headache Status: Acute (12) Hematuria Status: Acute (13) Hematuria Status: Acute (14) Hypertension Status: Acute (15) Hypokalemia Status: Acute (16) Hypokalemia Status: Acute (17) Hypomagnesemia Status: Acute (18) Intractable vomiting Status: Acute (19) Lumbar back pain Status: Acute (20) UTI (urinary tract infection) Status: Acute (21) Vomiting Status: Acute Review of Systems Constitutional: No fever, No chills, No weakness, No fatigue Respiratory: No cough, No shortness of breath Cardiac: No chest pain, No edema Abdomen: + pain, + nausea, No vomiting, No diarrhea, No constipation Musculoskeletal: No joint pain, No muscle pain Psychiatric: + depression symptoms, + anxiety Objective Vital Signs Date Time Temp Pulse Resp B/P (MAP) Pulse Ox O2 Delivery O2 Flow Rate FiO2 04/29/17 23:14 Room Air 04/29/17 22:55 37.3 100 18 155/95 (115) 97 Room Air 04/29/17 16:00 Room Air 04/29/17 15:48 37.0 92 16 145/93 (110) 99 04/29/17 07:50 Room Air Physical Exam General Appearance: WD/WN, + mild distress Eyes: normal inspection, sclerae normal Neck: supple, no carotid bruits Respiratory/Chest: chest non-tender, lungs clear, normal breath sounds Cardiovascular: regular rate, rhythm, no murmur Abdomen: normal bowel sounds, soft, + guarding, + tenderness Extremities: no pedal edema, no calf tenderness Neurologic/Psychiatric: alert, oriented x 3 Laboratory Results Last 24 Hours Test 04/29/17 07:33 04/30/17 06:31 White Blood Count 3.70 K/uL 4.95 K/uL Red Blood Count 3.40 M/uL 3.65 M/uL Hemoglobin 10.1 g/dL 10.9 g/dL Hematocrit 31.1 % 34.2 % Mean Corpuscular Volume 91.5 fL 93.7 fL Mean Corpuscular Hemoglobin 29.7 pg 29.9 pg Mean Corpuscular Hemoglobin Concent 32.5 g/dl 31.9 g/dl Platelet Count 153 K/uL 182 K/uL Mean Platelet Volume 9.6 fL 9.8 fL Neutrophils (%) (Auto) 55.1 % 60.0 % Lymphocytes (%) (Auto) 32.4 % 26.1 % Monocytes (%) (Auto) 10.3 % 10.9 % Eosinophils (%) (Auto) 1.4 % 2.2 % Basophils (%) (Auto) 0.3 % 0.4 % Neutrophils # (Auto) 2.04 K/uL 2.97 K/uL Lymphocytes # (Auto) 1.20 K/uL 1.29 K/uL Monocytes # (Auto) 0.38 K/uL 0.54 K/uL Eosinophils # (Auto) 0.05 K/uL 0.11 K/uL Basophils # (Auto) 0.01 K/uL 0.02 K/uL RDW Standard Deviation 48.8 fL 50.5 fL RDW Coefficient of Variation 14.6 % 14.9 % Immature Granulocyte % (Auto) 0.5 % 0.4 % Immature Granulocyte # (Auto) 0.02 K/uL 0.02 K/uL Sodium Level 138 mmol/L Potassium Level 3.7 mmol/L Chloride Level 104 mmol/L Carbon Dioxide Level 29 mmol/L Anion Gap 5.0 mmol/L Blood Urea Nitrogen 4 mg/dl Creatinine 0.87 mg/dl Est Creatinine Clear Calc Drug Dose 148.8 ml/min Estimated GFR () 130.5 Estimated GFR (Non- 112.6 BUN/Creatinine Ratio 4.5 Random Glucose 82 mg/dl Calcium Level 7.8 mg/dl Magnesium Level 2.0 mg/dl Total Bilirubin 1.5 mg/dl Aspartate Amino Transf (AST/SGOT) 55 U/L Alanine Aminotransferase (ALT/SGPT) 49 U/L Alkaline Phosphatase 75 U/L Total Protein 5.9 gm/dl Albumin 2.8 gm/dl Globulin 3.1 gm/dl Albumin/Globulin Ratio 0.9 Assessment and Plan 32 y/o male with a history of hepatic steatosis, esophagitis, HTN, asthma, depression, and PTSD who presented to the ED on 04/27 with RUQ pain, nausea, and vomiting. CT abdomen/pelvis shows hepatic steatosis and distal esophageal wall thickening which may indicate a nonspecific esophagitis. RUQ pain, nausea, vomiting, hepatic steatosis -Consult GI, started vitamin E for antioxidant effect on liver, continue supportive care. -Hepatic steatosis by liver biopsy last month. Hepatitis panel negative Dec 2016 -Continue Protonix, pt with persistent RUQ pain without LFT changes, will consider HIDA scan and continued GI follow up CHEKO secondary to dehydration--resolved -Resume lisinopril Hypokalemia, hypomagnesemia, hyponatremia in setting of dehydration/vomiting evaluate and replete HTN--stable on lisinopril, plus hydralazine 10 mg IV q6h prn SBP >180 Asthma--Advair BID and albuterol prn Depression/PTSD--formerly on amitriptyline, this was tapered off last admission in case it was contributing to liver disease, there likely is some anxiety component amplifying his pain coping tolerance Esophagitis per EGD in December-PPI DVT prophylaxis-Enoxaparin 40 mg SC q24h Code Status-Level I, FULL RESUSCITATION STATUS
[2017-04-30] MEDS: LACTATED RINGER'S 1000ML 1,000 ML IV SCH ×2 (14:39→23:33)
[2017-04-30 15:30] VITALS: O2SAT 99
[2017-04-30 15:36] VITALS: BP 144/84; PULSE 98; TEMP 37; O2SAT 99
[2017-04-30] MEDS: ENOXAPARIN 40 MG/0.4 ML SYR SQ SCH (17:44)
[2017-04-30 23:13] VITALS: BP 146/92; PULSE 100; TEMP 37.2; O2SAT 97
[2017-05-01 07:09] VITALS: BP 143/89; PULSE 91; TEMP 36.4; O2SAT 98
[2017-05-01] MEDS: LACTATED RINGER'S 1000ML 1,000 ML IV SCH ×2 (09:38→19:40)
[2017-05-01] MEDS ORDERED: SINCALIDE INJ 2 MCG in SODIUM CHLORIDE 0.9% 100ML 100 ML IV ONE (11:00)
[2017-05-01] MEDS: PANTOprazole SOD 40 MG TAB PO SCH (12:07)
[2017-05-01] MEDS: HYDROmorphone INJ 1 MG/ML SYR IV PRN ×4 (12:07→21:10)
[2017-05-01] MEDS: FLUTICASONE/SALMETEROL 250/50 (ADVAIR) 14 PUFF/1 INHALER INH SCH ×3 (12:07→19:39)
[2017-05-01] MEDS: LISINOPRIL 10 MG TAB PO SCH (12:08)
[2017-05-01] MEDS: TOCOPHERYL, DL-ALPHA 400 INTER.UNIT CAP PO SCH (12:08)
--- NOTE | 2017-05-01 12:42 | DIAGNOSTIC IMAGING REPORT ---
HEPATOBILIARY EF IMAGING HISTORY: Pain. Nausea. n/v, RUQ pain COMPARISON: 03/11/2017 TECHNIQUE: Immediately following the intravenous administration of 5.5 mCi Tc-99m Choletec, dynamic anterior abdominal imaging pre/post 2 mcg of Kinevac was performed. FINDINGS: Uniform hepatic tracer accumulation is shown. Prompt intrahepatic biliary excretion is seen. The gallbladder, common bile duct, and small bowel are all visualized by 45 minutes. This appearance represents a slight delay in gallbladder opacification The gallbladder ejection fraction following administration of Kinevac was 85 % (normal >35%). IMPRESSION: 1. No evidence for cystic duct obstruction. Slight delay in gallbladder opacification 2. Gallbladder ejection fraction calculated to be 85 %. The above report was generated using voice recognition software. It may contain grammatical, syntax or spelling errors. Electronically signed by: Derik Collier M.D. 05/01/2017 12:41 PM Dictated Date/Time: 05/01/2017 12:37 PM
[2017-05-01 15:23] VITALS: BP 146/89; PULSE 101; TEMP 37.1; O2SAT 99
--- NOTE | 2017-05-01 17:11 | PROGRESS NOTE ---
DATE: 05/01/2017 SUBJECTIVE: The patient continues to complain of epigastric and right upper quadrant pain. He underwent a biliary scan today which was normal with an ejection fraction of 85%. OBJECTIVE: VITAL SIGNS: Normal. LABORATORY DATA: Show bilirubin is 1.6, AST 60, ALT 56, and alkaline phosphatase 82. IMPRESSION: The patient has a significantly enlarged liver from steatosis, particularly the left lobe. This undoubtedly is stretching the Dian capsule, which is probably the source of his upper abdominal and right upper quadrant pain. Unfortunately, this was probably not going to go away unless his liver shrinks back down. 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 I do not think any further intervention is necessary related to his liver at this time. YANIRAD
[2017-05-01] MEDS: ENOXAPARIN 40 MG/0.4 ML SYR SQ SCH (18:06)
--- NOTE | 2017-05-01 21:05 | Progress Note ---
Subjective Date of Service: May 01, 2017. Subjective Pt evaluation today including: conversation w/ patient 32 yo male who is known to me from prior admission continues to complain of his RUQ abd pain. He reports that his pain is severe and has required dilaudid around the clock. Patient denies any nausea, vomiting, diarrhea. Problem List Medical Problems: (1) Acute renal failure Status: Acute (2) Anemia Status: Acute (3) Back pain Status: Acute (4) Bilateral flank pain Status: Acute (5) Biliary obstruction Status: Acute (6) Contusion of foot Status: Acute (7) Dehydration Status: Acute (8) Elevated bilirubin Status: Acute (9) Esophagitis Status: Acute (10) Flank pain Status: Acute (11) Headache Status: Acute (12) Hematuria Status: Acute (13) Hematuria Status: Acute (14) Hypertension Status: Acute (15) Hypokalemia Status: Acute (16) Hypokalemia Status: Acute (17) Hypomagnesemia Status: Acute (18) Intractable vomiting Status: Acute (19) Lumbar back pain Status: Acute (20) UTI (urinary tract infection) Status: Acute (21) Vomiting Status: Acute Review of Systems Constitutional: No fever, No chills Eyes: No worsening of vision ENT: No hearing loss Respiratory: No cough Cardiac: No chest pain Abdomen: + pain Musculoskeletal: No joint pain Neurologic: No memory loss Psychiatric: No depression symptoms Heme: No abnormal bleeding/bruising Endo: No fatigue Skin: No rash All Other Systems: Reviewed and Negative Objective Vital Signs Date Time Temp Pulse Resp B/P (MAP) Pulse Ox O2 Delivery O2 Flow Rate FiO2 05/01/17 15:23 37.1 101 18 146/89 (108) 99 Room Air 05/01/17 07:20 Room Air 05/01/17 07:09 36.4 91 16 143/89 (107) 98 Room Air 04/30/17 23:56 Room Air 04/30/17 23:13 37.2 100 18 146/92 (110) 97 Room Air Physical Exam General Appearance: WD/WN, no apparent distress Eyes: normal inspection ENT: normal ENT inspection Neck: supple, no adenopathy Respiratory/Chest: chest non-tender, lungs clear, normal breath sounds Cardiovascular: regular rate, rhythm, no edema Abdomen: normal bowel sounds, + distended, + tenderness (in ruq) Extremities: normal range of motion, non-tender Neurologic/Psychiatric: alert, oriented x 3 Skin: normal color Lymphatic: no adenopathy Assessment and Plan 32 y/o male with a history of hepatic steatosis, esophagitis, HTN, asthma, depression, and PTSD who presented to the ED on 04/27 with RUQ pain, nausea, and vomiting. CT abdomen/pelvis shows hepatic steatosis and distal esophageal wall thickening which may indicate a nonspecific esophagitis. RUQ pain, nausea, vomiting, hepatic steatosis -Consulted GI, started vitamin E for antioxidant effect on liver, continue supportive care. -Hepatic steatosis by liver biopsy last month. Hepatitis panel negative Dec 2016 -Continue Protonix, pt with persistent RUQ pain without LFT changes, -HIDA scan is negative. No further recommendations from GI at this time. -will need to manage his pain. CHEKO secondary to dehydration--resolved -Resume lisinopril Hypokalemia, hypomagnesemia, hyponatremia in setting of dehydration/vomiting evaluate and replete resolved. will repeat in a few days. HTN--stable on lisinopril, plus hydralazine 10 mg IV q6h prn SBP >180 Asthma--Advair BID and albuterol prn Depression/PTSD-- formerly on amitriptyline, this was tapered off last admission in case it was contributing to liver disease, there likely is some anxiety component amplifying his pain coping tolerance Esophagitis per EGD in December-PPI DVT prophylaxis-Enoxaparin 40 mg SC q24h Code Status-Level I, FULL RESUSCITATION STATUS spent 45 minutes in the management of this case, which also included encounter with patient and reviewing chart.
[2017-05-01 23:25] VITALS: BP 137/92; PULSE 96; TEMP 37.5; O2SAT 100
[2017-05-02] MEDS: HYDROmorphone INJ 1 MG/ML SYR IV PRN ×8 (00:15→22:05)
[2017-05-02] MEDS: LACTATED RINGER'S 1000ML 1,000 ML IV SCH ×2 (05:24→15:42)
[2017-05-02 07:21] VITALS: BP 145/89; PULSE 89; TEMP 36.9; O2SAT 97
[2017-05-02] MEDS: FLUTICASONE/SALMETEROL 250/50 (ADVAIR) 14 PUFF/1 INHALER INH SCH ×2 (09:03→20:53)
[2017-05-02] MEDS: PANTOprazole SOD 40 MG TAB PO SCH (09:04)
[2017-05-02] MEDS: TOCOPHERYL, DL-ALPHA 400 INTER.UNIT CAP PO SCH (09:04)
[2017-05-02] MEDS: LISINOPRIL 10 MG TAB PO SCH (09:04)
[2017-05-02 15:01] VITALS: BP 138/88; PULSE 95; TEMP 37.3; O2SAT 98
--- NOTE | 2017-05-02 16:55 | GASTROENTEROLOGY PROGRESS NOTE ---
DATE: 05/02/2017 GASTROENTEROLOGY INPATIENT PROGRESS NOTE SUBJECTIVE: Chart reviewed, patient examined. The patient continues to experience upper abdominal pain, mostly in the right upper quadrant epigastrium and slightly to the left side. The pain below the umbilicus is not overly bothersome. I did review the patient's laboratory studies, both from this hospitalization and previous hospitalizations. Actually, his bilirubin, LFTs have declined considerably and only a slight elevation in bilirubin which is mostly indirect and AST is elevated. Currently, today the patient's laboratories are white count 4.9, hemoglobin 10.9, platelets are 182,000; MCV is 93, RDW is minimally elevated at 14.9. Total bilirubin 1.6, AST 60, ALT 56 normal, alkaline phosphatase 82 normal, albumin is low at 2.9. The BUN and creatinine are 3 and 0.94, potassium normal at 3.9. Coagulation panel: INR on April 27 is 1.1. In the past, ceruloplasmin was slightly low but a 24-hour urine copper was in the normal range. In addition, a JEANETTE enzyme assay was within the normal range. The patient's lipid panel was repeated during this hospitalization now that LFTs are more reasonable and these show only a mild elevation in triglycerides at 200, total cholesterol 172, LDL cholesterol 97, and HDL of 35. The patient had a HIDA scan yesterday which showed an ejection fraction of approximately 85% without evidence of cystic duct obstruction, although there was a slight delay in gallbladder opacification. CT on April 27 again showed severe hepatic steatosis, no evidence for diverticulitis, small hiatal hernia, possible mild distal esophagitis. Gallbladder was unremarkable with a normal size spleen. The patient reported that his foot under the door on the night of admission. He has had difficulty with weightbearing is swollen, erythematous on the dorsum of the foot just below the digits. There is also swelling in the dorsum. The patient has no history of gout. REVIEW OF SYSTEMS: Otherwise noncontributory based on 13-point exam except for mentioned above. CURRENT MEDICATIONS: Include lactated Ringer's, hydromorphone, lisinopril, pantoprazole 40 mg daily, vitamin E, Advair, Dilaudid p.r.n., Lovenox, hydralazine, albuterol inhaler p.r.n., and Zofran p.r.n. PHYSICAL EXAMINATION: GENERAL: The patient is awake, alert and oriented x3, accompanied by his mother. HEENT: Sclerae are anicteric, conjunctivae moist. Oral mucosa moist. HEART: Normal S1, S2. LUNGS: Clear to auscultation without rales, rhonchi or wheezes. ABDOMEN: Soft, flat; tender in the right upper quadrant, epigastrium and to a lesser extent in the left upper quadrant area below the left costal margin. Palpation below the level of the umbilicus bilaterally is nonfocal and not overly tender. There are positive bowel sounds. EXTREMITIES: As described above. The left extremity is satisfactory without swelling, tenderness or erythema on the skin. RECTAL: Deferred. NEUROLOGICAL: The patient was awake, alert and oriented x3. IMPRESSION AND PLAN: Source of the patient's right upper quadrant pain remains unknown other than the profound fatty appearance to the liver. This may represent the source with a stretch of Dian capsule. The patient's lipid profile prior JEANETTE assessment would not seem to favor a lipid disorder as a prime source of the patient's steatosis. Biopsy in the past although showing a markedly increased fat staining, did not show any significant abnormalities to the hepatic parenchyma for the limited specimens that were obtained. A disorder of the gallbladder is unlikely as a source of this patient's pain. The patient did have a prior upper endoscopy during the last hospitalizations and this in December and esophagitis was identified, grade B. No other abnormalities were seen. I did speak with Dr. Alvarez today of the primary team. I am not sure that we can perform any additional workup locally at this point as studies and repeat studies have generally failed to disclose an obvious cause other than the extreme fatty appearance to the liver. The patient has had an MRCP in early March and this again showed hepatic steatosis without evidence of ductal dilation, filling defects in the biliary system. Consider transfer to a referral center. I believe the patient's insurance will permit [facility]. In addition, regarding the patient's foot, it may be reasonable to test some imaging studies to exclude any fracture or acute arthritis that is causing this extreme pain and swelling. This may have been traumatic as the patient reports jamming his foot underneath the door in his bedroom on the night of the admission. The patient has been off Elavil since mid March and although his liver tests did seem to improve overall since discontinuing this, the steatosis likely persists. This may require additional time to see if the steatosis can reverse itself. Would continue a low fat diet, hydrate the patient as tolerated, PPI therapy. Decision for a statin agent is difficult, but may need to be considered at some point. All of the patient's questions were answered. MTDD
[2017-05-02] MEDS: ENOXAPARIN 40 MG/0.4 ML SYR SQ SCH (18:38)
--- NOTE | 2017-05-02 20:59 | DIAGNOSTIC IMAGING REPORT ---
R FOOT MIN 3 VIEWS ROUTINE CLINICAL HISTORY: swelling right foot pain. Edema. COMPARISON: None. DISCUSSION: The bones and joint spaces appear intact. There is no evidence of fracture, dislocation or bony disease. Mild soft tissue edema IMPRESSION: Mild soft tissue edema. No acute bony abnormality. The above report was generated using voice recognition software. It may contain grammatical, syntax or spelling errors. Electronically signed by: Derik Collier M.D. 05/02/2017 8:58 PM Dictated Date/Time: 05/02/2017 8:58 PM
--- NOTE | 2017-05-02 22:03 | Progress Note ---
Subjective Date of Service: May 02, 2017. Subjective No change in symptoms. Patient continues to complain of RUQ abd. pain. Problem List Medical Problems: (1) Acute renal failure Status: Acute (2) Anemia Status: Acute (3) Back pain Status: Acute (4) Bilateral flank pain Status: Acute (5) Biliary obstruction Status: Acute (6) Contusion of foot Status: Acute (7) Dehydration Status: Acute (8) Elevated bilirubin Status: Acute (9) Esophagitis Status: Acute (10) Flank pain Status: Acute (11) Headache Status: Acute (12) Hematuria Status: Acute (13) Hematuria Status: Acute (14) Hypertension Status: Acute (15) Hypokalemia Status: Acute (16) Hypokalemia Status: Acute (17) Hypomagnesemia Status: Acute (18) Intractable vomiting Status: Acute (19) Lumbar back pain Status: Acute (20) UTI (urinary tract infection) Status: Acute (21) Vomiting Status: Acute Review of Systems Constitutional: No fever, No chills Eyes: No worsening of vision ENT: No hearing loss Respiratory: No cough Cardiac: No chest pain Abdomen: + pain Musculoskeletal: No joint pain Neurologic: No memory loss Psychiatric: No depression symptoms Heme: No abnormal bleeding/bruising Endo: No fatigue Skin: No rash All Other Systems: Reviewed and Negative Objective Vital Signs Date Time Temp Pulse Resp B/P (MAP) Pulse Ox O2 Delivery O2 Flow Rate FiO2 05/02/17 19:15 Room Air 05/02/17 15:01 37.3 95 16 138/88 (105) 98 Room Air 05/02/17 07:25 Room Air 05/02/17 07:21 36.9 89 16 145/89 (107) 97 Room Air 05/01/17 23:25 37.5 96 18 137/92 (107) 100 Room Air Physical Exam Comments: General Appearance: WD/WN, no apparent distress Eyes: normal inspection ENT: normal ENT inspection Neck: supple, no adenopathy Respiratory/Chest: chest non-tender, lungs clear, normal breath sounds Cardiovascular: regular rate, rhythm, no edema Abdomen: normal bowel sounds, + distended, + tenderness (in ruq) Extremities: normal range of motion, non-tender Neurologic/Psychiatric: alert, oriented x 3 Skin: normal color Lymphatic: no adenopathy Assessment and Plan 32 y/o male with a history of hepatic steatosis, esophagitis, HTN, asthma, depression, and PTSD who presented to the ED on 04/27 with RUQ pain, nausea, and vomiting. CT abdomen/pelvis shows hepatic steatosis and distal esophageal wall thickening which may indicate a nonspecific esophagitis. RUQ pain, nausea, vomiting, hepatic steatosis -Consulted GI, started vitamin E for antioxidant effect on liver, continue supportive care. -Hepatic steatosis by liver biopsy last month. Hepatitis panel negative Dec 2016 -Continue Protonix, pt with persistent RUQ pain without LFT changes, -HIDA scan is negative. No further recommendations from GI at this time. -will need to manage his pain. -GI recommends to transfer patient to tertiary center. -Will call in AM CHEKO secondary to dehydration--resolved -Resumed lisinopril. Labs have been stable Right foot injury Patient reports smacking foot against door on monday. Patient does not state why he did not discuss this injury before. He states he was preoccupied with his abd. pain. will obtain x-ray of his right foot. and will consider ortho consult. Hypokalemia, hypomagnesemia, hyponatremia in setting of dehydration/vomiting evaluate and replete resolved. will repeat in a few days. HTN--stable on lisinopril, plus hydralazine 10 mg IV q6h prn SBP >180 Asthma--Advair BID and albuterol prn Depression/PTSD-- formerly on amitriptyline, this was tapered off last admission in case it was contributing to liver disease, there likely is some anxiety component amplifying his pain coping tolerance Esophagitis per EGD in December-PPI DVT prophylaxis-Enoxaparin 40 mg SC q24h Code Status-Level I, FULL RESUSCITATION STATUS Continued [facility] stay due to: inadequate oral pain control, multiple IV medications needed Discharge planning: acute transfer
[2017-05-02 22:57] VITALS: BP 141/95; PULSE 96; TEMP 37.5; O2SAT 99
[2017-05-02 23:50] VITALS: O2SAT 99
[2017-05-03] MEDS: HYDROmorphone INJ 1 MG/ML SYR IV PRN ×5 (01:05→15:07)
[2017-05-03] MEDS: LACTATED RINGER'S 1000ML 1,000 ML IV SCH ×3 (01:21→22:39)
[2017-05-03 07:39] VITALS: BP 123/79; PULSE 94; TEMP 36.8; O2SAT 97
[2017-05-03] MEDS: FLUTICASONE/SALMETEROL 250/50 (ADVAIR) 14 PUFF/1 INHALER INH SCH ×3 (07:52→21:32)
[2017-05-03] MEDS: PANTOprazole SOD 40 MG TAB PO SCH (07:52)
[2017-05-03] MEDS: LISINOPRIL 10 MG TAB PO SCH (07:52)
[2017-05-03] MEDS: TOCOPHERYL, DL-ALPHA 400 INTER.UNIT CAP PO SCH (07:52)
--- NOTE | 2017-05-03 08:52 | Consultant Recommendations ---
Riprap Placing Supervisor Recommendations Date of Service May 03, 2017. Riprap Placing Supervisor Recommendations Ice to right foot as needed for pain/swelling. Elevate right foot above heart as needed for pain/swelling. Post op shoe right foot as needed to assist with ambulation for comfort Crutches as needed to assist with ambulation. Applied RANDA bandage to right foot to help with swelling and comfort. May wrap and re-wrap PRN. May weight bear as tolerated right lower extremity. Would recommend x-rays right foot in 7-10 days if continues to have pain/ swelling and difficulty weight bearing. Follow up with Dr. Brooks as outpatient in 7-10 days if no longer admitted to the hospital. If still admitted in [place] would recommend repeat x-rays in 7-10 days and evaluation by orthopedist in [place]. Please call [phone] with any questions or concerns.
[2017-05-03 09:01] LABS: CREATININE 0.79 mg/dl (0.60-1.40)
--- NOTE | 2017-05-03 09:26 | Medical Consult ---
Consultation Note Date of Service May 03, 2017. Consultation Note Consulted by: Dr. Alvarez. CHIEF COMPLAINT: Right foot pain. HISTORY OF PRESENT ILLNESS: Tip is a 32-year-old male who was admitted on April 27, 2017 to the hospital for right upper quadrant pain. He has a history of severe hepatic steatosis, esophagitis, HTN, asthma, depression, and PTSD. He states that on his first night in the hospital he caught his right foot under the bathroom door as the lights were off and since has had severe right foot pain, inability to bear weight. He is used ice. He recently had x-rays and I was consulted for further evaluation and treatment. Past Medical History: (1) Abdominal pain (2) Acute renal failure (3) Anemia (4) Asthma (5) Bilateral flank pain (6) Biliary obstruction (7) Brain bleed (8) Broken back (9) Chronic headache (10) Contusion of foot (11) Elevated bilirubin (12) Hematuria (13) Hypertension (14) Hypokalemia (15) Hypomagnesemia (16) Lumbar back pain (17) Postconcussive syndrome (18) PTSD (post-traumatic stress disorder) (19) UTI (urinary tract infection) (20) Vomiting (21) Malingerer Past Surgical History: None. MEDICATIONS: Change from the EMR. Scheduled Albuterol Hfa (Ventolin Hfa), 2-4 PUFFS INH BID Albuterol Sulf (Proventil 0.083% 2.5MG/3ML), 2.5 MG INH PRN Fluticasone Prop/Salmeterol (Advair Diskus 250/50 60 Dose), 2 PUFF INH BID Lisinopril (Lisinopril), 10 MG PO DAILY Pantoprazole (Protonix), 40 MG PO DAILY Scheduled PRN Oxycodone HCl (Oxycodone HCl), 10 MG PO Q4 PRN for Pain ALLERGIES: Obtained from the EMR. Coded Allergies: Lactose Intolerance (GI) (Verified Allergy, Intermediate, abdomainal cramps, diarrhea, 04/27/17) Mold (Blue) Cheese (Verified Allergy, Intermediate, rash, 04/27/17) Penicillins (Verified Allergy, Intermediate, ITCHY BLOTCHES, 04/27/17) Amitriptyline (Unverified Allergy, Unknown, chest tightness difficulty breathing unable to function, 04/27/17) Naproxen (Unverified Allergy, Unknown, ITCHY, 04/27/17) Red Dye (Verified Allergy, Unknown, HIVES, 04/27/17) FAMILY HISTORY: Obtained from the EMR. Asthma Cancer Diabetes mellitus FH: heart disease FHx: lung disease Hypertension Kidney disease Kidney stones Stroke SOCIAL HISTORY: Denies smoking and has ceased alcohol use for 5 years. He is single and lives with his mother. He is unemployed. Denies recreational drug use. REVIEW OF SYSTEMS: A 10-point review of systems is noted in the shared EMR from his admission April 27, 2017 and was positive for nausea vomiting and right upper quadrant pain. PHYSICAL EXAM: Patient is in no acute distress breathing resting comfortably in his hospital bed. They have an appropriate mood and affect. They weigh 100 and are 185.4 centimeters tall. Focusing on his right lower extremity, his sensation to light touch is intact distally and he has brisk cap refill. He was unable to wiggle his toes up and down secondarily to pain. He was hypersensitive to the touch diffusely over the mid to distal foot. He did have some swelling over the distal aspect of the foot with some mild erythema. The foot was otherwise soft. RADIOGRAPHS: Normal right foot x-ray study. IMPRESSION: Right foot contusion versus occult fracture. PLAN: After a lengthy discussion with the patient today regarding my above clinical findings, as well as reviewing his radiographs, he will be treated conservatively with compressive Delmar bandage, ice, elevation, weightbearing as tolerated in a postop shoe. He understands that he may require crutches. PT/ OT evaluation for gait training and daily activities. He can follow up as an outpatient. He will require x-rays in 1-2 weeks to rule out an occult fracture , these can be done as an outpatient, if he is still in a hospital, they could be done in that setting and recommend weightbearing films. Recommend continued pain control. Due to his enlarged liver or eliminates the use of Tylenol. Unsure if there is any planned general surgical procedure and will hold off on any anti-inflammatories. From an orthopedic standpoint he could be discharged home or to another facility and follow-up as an outpatient. The patient understood all my instructions and explanation; all their questions were satisfactorily addressed. Thank you for me to participate in Tip's care. Please recall if there is any other orthopedic issues.
[2017-05-03] MEDS ORDERED: HYDROmorphone INJ 2 MG/ML SYR/VIAL IV PRN (15:15)
[2017-05-03 15:35] VITALS: BP 146/94; PULSE 101; TEMP 37.1; O2SAT 96
[2017-05-03] MEDS: ENOXAPARIN 40 MG/0.4 ML SYR SQ SCH (18:00)
[2017-05-03] MEDS: HYDROmorphone INJ 2 MG/ML SYR/VIAL IV PRN ×2 (18:40→21:56)
[2017-05-03 22:54] VITALS: BP 146/97; PULSE 91; TEMP 37.2; O2SAT 100
[2017-05-04] MEDS: HYDROmorphone INJ 2 MG/ML SYR/VIAL IV PRN ×2 (02:00→08:16)
[2017-05-04 03:03] VITALS: BP 146/97; PULSE 91; TEMP 37.2; O2SAT 100
[2017-05-04 07:31] VITALS: BP 123/82; PULSE 79; TEMP 36.9; O2SAT 98
--- NOTE | 2017-05-04 07:46 | Discharge Instructions ---
Discharge Instructions Date of Service May 04, 2017. Admission Reason for Admission: Abdominal Pain, Vomiting Discharge Discharge Diagnosis / Problem: RUQ abd. pain/ fatty liver Discharge Goals Goal(s): Decrease discomfort, Improve function Activity Recommendations Activity Limitations: resume your previous activity . Instructions / Follow-Up Instructions / Follow-Up will be transferred to [facility] Diet Patient's current hospital diet: Full Liquid Diet Discharge Diet Recommended Diet: Full Liquid Diet Pending Studies Studies pending at discharge: no Laboratory Results Hemoglobin A1c Test 03/12/17 10:00 Range/Units Estimated Average Glucose 97 mg/dl Hemoglobin A1c 5.0 4.5-5.6 % Lipid Panel Test 04/27/17 04:56 Range/Units Triglycerides Level 200 H 0-150 mg/dl Cholesterol Level 172 0-200 mg/dl HDL Cholesterol 35 mg/dl Cholesterol/HDL Ratio 4.9 LDL Cholesterol, Calculated 97 mg/dl Medical Emergencies . Who to Call and When: Medical Emergencies: If at any time you feel your situation is an emergency, please call 911 immediately. . Non-Emergent Contact Non-Emergency issues call your: Primary Care Provider Call Non-Emergent contact if: you have any medication questions . . "Provider Documentation" section prepared by Mulugeta Alvarez. . Optical Store Manager Recommendations Optical Store Manager Recommendations: Ice to right foot as needed for pain/swelling. Elevate right foot above heart as needed for pain/swelling. Post op shoe right foot as needed to assist with ambulation for comfort Crutches as needed to assist with ambulation. Applied RANDA bandage to right foot to help with swelling and comfort. May wrap and re-wrap PRN. May weight bear as tolerated right lower extremity. Would recommend x-rays right foot in 7-10 days if continues to have pain/ swelling and difficulty weight bearing. Follow up with Dr. Brooks as outpatient in 7-10 days if no longer admitted to the hospital. If still admitted in [place] would recommend repeat x-rays in 7-10 days and evaluation by orthopedist in [place]. Please call [phone] with any questions or concerns.
--- NOTE | 2017-05-04 07:47 | Discharge Summary ---
Discharge Summary Date of Service May 04, 2017. Discharge Summary Admission Date: Apr 28, 2017 at 11:38 Discharge Date: May 04, 2017 Discharge Disposition: Acute care facility Principal Diagnosis: Hepatic steatosis Medication Reconciliation Continued Medications: Albuterol Hfa (Ventolin Hfa) 200 Puffs/[id number] Mcg Aers 2-4 PUFFS INH BID, #1 INHALER Albuterol Sulf (Proventil 0.083% 2.5MG/3ML) 2.5 Mg/3 Ml Nebu 2.5 MG INH PRN, EA Fluticasone Prop/Salmeterol (Advair Diskus 250/50 60 Dose) 1 Ea Aerp 2 PUFF INH BID, INHALER Lisinopril (Lisinopril) 10 Mg Tab 10 MG PO DAILY Oxycodone HCl (Oxycodone HCl) 5 Mg Tab 10 MG PO Q4 PRN for Pain, #20 TAB 0 Refills Pantoprazole (Protonix) 40 Mg Tab 40 MG PO DAILY, #30 TAB Discharge Exam Review of systems Constitutional: No fever, No chills Eyes: No worsening of vision ENT: No hearing loss Respiratory: No cough Cardiac: No chest pain Abdomen: + pain Musculoskeletal: No joint pain Neurologic: No memory loss Psychiatric: No depression symptoms Heme: No abnormal bleeding/bruising Endo: No fatigue Skin: No rash All Other Systems: Reviewed and Negative Physical Exam General Appearance: WD/WN, no apparent distress Eyes: normal inspection ENT: normal ENT inspection Neck: supple, no adenopathy Respiratory/Chest: chest non-tender, lungs clear, normal breath sounds Cardiovascular: regular rate, rhythm, no edema Abdomen: normal bowel sounds, + distended, + tenderness (in ruq) Extremities: normal range of motion, non-tender Neurologic/Psychiatric: alert, oriented x 3 Skin: normal color Lymphatic: no adenopathy Hospital Course 32 y/o male with a history of hepatic steatosis, esophagitis, HTN, asthma, depression, and PTSD who presented to the ED on 04/27 with RUQ pain, nausea, and vomiting. CT abdomen/pelvis shows hepatic steatosis and distal esophageal wall thickening which may indicate a nonspecific esophagitis. RUQ pain, nausea, vomiting, hepatic steatosis -Consulted GI, started vitamin E for antioxidant effect on liver, continue supportive care. -Hepatic steatosis by liver biopsy last month. Hepatitis panel negative Dec 2016 -Continue Protonix, pt with persistent RUQ pain without LFT changes, -HIDA scan is negative. No further recommendations from GI at this time. -will need to manage his pain. Called [facility] for transfer. They accepted patient. Patient understands cost of transfer. , but he still wants to be discharged and transferred. Patient is leaving today. Acute kidney injury secondary to dehydration--resolved -Resume lisinopril Right foot injury Patient reports smacking foot against door on monday. Patient does not state why he did not discuss this injury before. He states he was preoccupied with his abd. pain. x-ray negative. no need to postpone transfer Hypokalemia, hypomagnesemia, hyponatremia in setting of dehydration/vomiting evaluate and replete resolved. will repeat in a few days. HTN--stable on lisinopril, plus hydralazine 10 mg IV q6h prn SBP >180 Asthma--Advair BID and albuterol prn Depression/PTSD-- formerly on amitriptyline, this was tapered off last admission in case it was contributing to liver disease, there likely is some anxiety component amplifying his pain coping tolerance Esophagitis per EGD in December-PPI DVT prophylaxis-Enoxaparin 40 mg SC q24h Code Status-Level I, FULL RESUSCITATION STATUS Total Time Spent: Greater than 30 minutes This includes examination of the patient, discharge planning, medication reconciliation, and communication with other providers. Discharge Instructions Please refer to the electronic Patient Visit Report (Discharge Instructions) for additional information. Additional Copies To Noemy Lombardi DO
--- NOTE | 2017-05-04 07:47 | Progress Note ---
Subjective Date of Service: May 03, 2017. Subjective Pt evaluation today including: conversation w/ patient, physical exam, review of inpatient medication list LATE ENTRY DUE TO DOWN SYSTEM. Patient reports no improvement in pain in his RUQ. Patient denies any nausea, vomiting. Problem List Medical Problems: (1) Acute renal failure Status: Acute (2) Anemia Status: Acute (3) Back pain Status: Acute (4) Bilateral flank pain Status: Acute (5) Biliary obstruction Status: Acute (6) Contusion of foot Status: Acute (7) Dehydration Status: Acute (8) Elevated bilirubin Status: Acute (9) Esophagitis Status: Acute (10) Flank pain Status: Acute (11) Headache Status: Acute (12) Hematuria Status: Acute (13) Hematuria Status: Acute (14) Hypertension Status: Acute (15) Hypokalemia Status: Acute (16) Hypokalemia Status: Acute (17) Hypomagnesemia Status: Acute (18) Intractable vomiting Status: Acute (19) Lumbar back pain Status: Acute (20) UTI (urinary tract infection) Status: Acute (21) Vomiting Status: Acute Review of Systems Review of Systems Constitutional: No fever, No chills Eyes: No worsening of vision ENT: No hearing loss Respiratory: No cough Cardiac: No chest pain Abdomen: + pain Musculoskeletal: No joint pain Neurologic: No memory loss Psychiatric: No depression symptoms Heme: No abnormal bleeding/bruising Endo: No fatigue Skin: No rash All Other Systems: Reviewed and Negative Objective Vital Signs Date Time Temp Pulse Resp B/P (MAP) Pulse Ox O2 Delivery O2 Flow Rate FiO2 05/04/17 07:31 36.9 79 16 123/82 (96) 98 Room Air 05/04/17 03:03 37.2 91 16 100 Room Air 05/03/17 23:50 Room Air 05/03/17 22:54 37.2 91 16 146/97 (113) 100 Room Air 05/03/17 15:35 37.1 101 18 146/94 (111) 96 Room Air 05/03/17 15:05 Room Air Physical Exam Comments: General Appearance: WD/WN, no apparent distress Eyes: normal inspection ENT: normal ENT inspection Neck: supple, no adenopathy Respiratory/Chest: chest non-tender, lungs clear, normal breath sounds Cardiovascular: regular rate, rhythm, no edema Abdomen: normal bowel sounds, + distended, + tenderness (in ruq) Extremities: normal range of motion, non-tender Neurologic/Psychiatric: alert, oriented x 3 Skin: normal color Lymphatic: no adenopathy Assessment and Plan 32 y/o male with a history of hepatic steatosis, esophagitis, HTN, asthma, depression, and PTSD who presented to the ED on 04/27 with RUQ pain, nausea, and vomiting. CT abdomen/pelvis shows hepatic steatosis and distal esophageal wall thickening which may indicate a nonspecific esophagitis. RUQ pain, nausea, vomiting, hepatic steatosis -Consulted GI, started vitamin E for antioxidant effect on liver, continue supportive care. -Hepatic steatosis by liver biopsy last month. Hepatitis panel negative Dec 2016 -Continue Protonix, pt with persistent RUQ pain without LFT changes, -HIDA scan is negative. No further recommendations from GI at this time. -will need to manage his pain. Called [facility] for transfer. They accepted patient. Patient understands cost of transfer. , but he still wants to be discharged. Acute kidney insufficiency secondary to dehydration--resolved -Resume lisinopril Right foot injury Patient reports smacking foot against door on monday. Patient does not state why he did not discuss this injury before. He states he was preoccupied with his abd. pain. will obtain x-ray of his right foot. and will consider ortho consult. Hypokalemia, hypomagnesemia, hyponatremia in setting of dehydration/vomiting evaluate and replete resolved. will repeat in a few days. HTN--stable on lisinopril, plus hydralazine 10 mg IV q6h prn SBP >180 Asthma--Advair BID and albuterol prn Depression/PTSD-- formerly on amitriptyline, this was tapered off last admission in case it was contributing to liver disease, there likely is some anxiety component amplifying his pain coping tolerance Esophagitis per EGD in December-PPI DVT prophylaxis-Enoxaparin 40 mg SC q24h Code Status-Level I, FULL RESUSCITATION STATUS spent 105 minutes in the management of this case, which also included encounter with patient and reviewing chart, and discussing case with transfer team Continued [facility] stay due to: inadequate oral pain control Discharge planning: acute transfer
--- NOTE | 2017-05-04 08:13 | GASTROENTEROLOGY PROGRESS NOTE ---
DATE: 05/03/2017 Chart reviewed, the patient examined. The patient was seen and underwent x-rays of his right foot. Although there is no obvious fracture, a small hairline fracture cannot be fully excluded. Treatment recommendations noted. Regarding the patient's pain, he continues to experience exquisite upper abdominal pain in the right upper quadrant, epigastrium and toward the left side. He reports that he has been tolerating liquids reasonably well and bowel movements have been liquid and nonbloody. Most of the x-ray showed soft tissue edema. MEDICATIONS: Reviewed and include hydromorphone, lisinopril, pantoprazole, Lovenox subcu for DVT prophylaxis, p.r.n. Zofran. LABORATORY STUDIES: Show a creatinine of 0.79. There are no recent liver tests. PHYSICAL EXAMINATION: VITAL SIGNS: Temperature 37.1, heart rate 101, respirations 18, blood pressure 146/94, 96% on room air. GENERAL: Today, the patient is awake, alert and oriented x3, accompanied by his mother. The patient is resting in bed. Overall comfortable unless he is moving or there is palpation applied to the abdomen. HEART: Normal S1, S2. LUNGS: Clear to auscultation. ABDOMEN: Tender in the distribution noted above. There is no rebound or guarding. Positive bowel sounds. EXTREMITIES: Without edema on the left side. Right side shows pedal edema with erythema. RECTAL: Deferred. IMPRESSION AND PLAN: The source of the patient's pain remains unclear, although the stretch on Dian's capsule is considered. There is no evidence to suggest an infectious etiology or inflammatory etiology. He did have a trial of steroids in the past which have not had a meaningful impact on his symptoms. LFTs did trend downward; however, this had occurred in the past in December without intervention. The pain persists, however. There is no evidence for a significant hyperlipidemia as a primary source of the patient's intense fatty liver appearance. At this time, as I discussed with the patient and his mother, I am not sure that we have any additional workup that can be performed locally or recommended and it may be in his advantage to consider transfer to a referral center such as [facility] which is covered by his insurance. Would obtain a set of liver tests tomorrow if not already ordered. We will try to slowly advance diet as tolerated. All questions answered.
--- NOTE | 2017-05-05 13:42 | EDITING REQUIRED CODING QUERY ---
CODING QUERY To promote full compliance with coding requirements relating to patient care, provider participation is requested in all cases of manager testing uncertainty. Please assist us with the question(s) below: Please clarify the meaning of CHEKO. CHEKO is not a valid abbreviation. Thank you. ( ) Acute Kidney Injury ( x ) Acute Kidney Insufficiency ( ) Other (Specify): Principal Diagnosis: "_that condition established after study, to be chiefly responsible for occasioning the admission of the patient to the hospital for care." Co-Existing Principal Diagnosis: "_when two or more diagnoses equally meet the criteria for principal diagnosis as determined by the circumstances of admission, diagnostic work up, and/or therapy provided, and the Alphabetic Index, Tabular List, or another coding guideline does not provide sequencing direction, any one of the diagnoses may be sequenced first." "When the physician has documented what appears to be a current diagnosis in the body of the record, but has not included the diagnosis in the final diagnostic statement, the physician should be asked whether the diagnosis should be added." (Source [facility] 2 QTR90. p3-4)
== END 2017-05-04 08:37 | disposition short-term general hospital (02) | DRG 442 ==
LOC: C.EDB 04:24 → C.MSN 09:14 → ENRESERV 09:27 → OBSVTOIN 04-28 11:38
PROVIDERS: ADMIT Internal Medicine; ATTEND Internal Medicine Sports Medicine
DX: K76.0 Fatty (change of) liver, not elsewhere classified (principal); E87.1 Hypo-osmolality and hyponatremia; A08.4 Viral intestinal infection, unspecified; E87.6 Hypokalemia; E83.42 Hypomagnesemia; R79.89 Other specified abnormal findings of blood chemistry; N28.9 Disorder of kidney and ureter, unspecified; S90.31XA Contusion of right foot, initial encounter; S92.901A Unspecified fracture of right foot, initial encounter for closed fracture; W22.09XA Striking against other stationary object, initial encounter; Y92.230 Patient room in hospital as the place of occurrence of the external cause; Y93.01 Activity, walking, marching and hiking; Y99.8 Other external cause status; I10 Essential (primary) hypertension; J45.909 Unspecified asthma, uncomplicated; F32.9 Major depressive disorder, single episode, unspecified; F43.10 Post-traumatic stress disorder, unspecified; K20.9 Esophagitis, unspecified; E73.9 Lactose intolerance, unspecified; Z86.59 Personal history of other mental and behavioral disorders; Z87.891 Personal history of nicotine dependence; Z79.899 Other long term (current) drug therapy; Z88.0 Allergy status to penicillin; Z88.6 Allergy status to analgesic agent; Z88.8 Allergy status to other drugs, medicaments and biological substances; Z91.048 Other nonmedicinal substance allergy status; Z82.5 Family history of asthma and other chronic lower respiratory diseases; Z83.3 Family history of diabetes mellitus; Z82.49 Family history of ischemic heart disease and other diseases of the circulatory system; Z84.1 Family history of disorders of kidney and ureter; Z82.3 Family history of stroke

== ENCOUNTER 2017-05-30 10:35 | Inpatient (IN) | payer OTHER ==
[~2017-05-30] VITALS: Ht 185.4 cm; Wt 100.4 kg
[~2017-05-30 10:35] MED LIST changes: +ADVIN25/60 INH; +ALBINS/ INH; -AMT10 PO; -AMT25 PO; -FLV1 PO; +LISI-461 PO; -PRD10 PO; +VNTHFA/IN INH
[2017-05-30] MEDS ORDERED: PANT40TA PO (11:01)
[2017-05-30] MEDS ORDERED: PROMETHAZINE HCL INJ 12.5 MG in SODIUM CHLORIDE 0.9% 50ML 50 ML IV SCH (11:08)
[2017-05-30] MEDS ORDERED: PROMETHAZINE HCL INJ 25 MG/ML 1 ML VIAL IV STA (11:08)
[2017-05-30] MEDS: MoRPHine SULFATE 10 MG/ML CARP/VIAL IV PRN ×3 (11:21→13:02)
--- NOTE | 2017-05-30 11:22 | EMERGENCY ROOM VISIT NOTE ---
History Report prepared by Luz: Adin Sommer Under the Supervision of: Dr. Compa Ponce M.D. First contact with patient: 11:05 Chief Complaint: ABDOMINAL PAIN Stated Complaint: ABDOMINAL PAIN Nursing Triage Summary: Patient arrives via ems from [facility] in [place] where patient was being seen for severe RUQ abdominal pain. Pain originally started on Monday around 0530 and has been constant ever since. Patient has history of blood clots, enlarged liver, HTN, pneumonia with organ failure in which he needed dialysis at that point. Patient recevied total of 100mcg of IV Fentanyl & 4mg iV zofran en route. +N/V. PT reports passing gas and moving bowels good. History of Present Illness The patient is a 32 year old male who presents to the Emergency Room with complaints of constant right upper quadrant abdominal pain for the last 4 days. He states that it is a pulling and sharp pain, and he currently rates his discomfort as a 10/10 in severity and is worsened with eating and drinking. The patient notes that he has also been vomiting, and he is unable to keep anything down including food and water. He states that he has seen different GI doctors, and he has had an endoscopy in the past. The patient notes that he was found to have a high bilirubin count and a swollen liver. He has also had an MRCP and a biopsy of his liver. The patient denies any diarrhea or fever. The patient states that he has a history of an appendectomy, though he has not had a cholecystectomy. He notes that he has a family history of right upper quadrant pain which was resolved after a cholecystectomy. The patient states that he does not drink any alcohol. He states that he takes blood pressure medication, and he has been able to take them the past few days. The patient was given Zofran and Fentanyl en route to the hospital. Source of History: patient Onset: three days ago Position: abdomen (RUQ) Symptom Intensity: 10/10 Quality: sharp, other (pulling) Timing: constant Modifying Factors (Worsening): eating, drinking Associated Symptoms: + vomiting, No fevers, No diarrhea Review of Systems See HPI for pertinent positives & negatives. A total of 10 systems reviewed and were otherwise negative. Past Medical & Surgical Medical Problems: (1) Abdominal pain (2) Asthma (3) Bilateral flank pain (4) Brain bleed (5) Broken back (6) Hepatitis (7) Malingerer (8) Postconcussive syndrome (9) PTSD (post-traumatic stress disorder) (10) Vomiting Social History Problems: (1) Drug-seeking behavior Family History Asthma Cancer Diabetes mellitus FH: heart disease FHx: lung disease Hypertension Kidney disease Kidney stones Stroke Social History Smoking Status: Never Smoker Alcohol Use: none Drug Use: none Marital Status: single Housing Status: lives with family Occupation Status: unemployed Current/Historical Medications Scheduled Albuterol Hfa (Ventolin Hfa), 2-4 PUFFS INH BID Albuterol Sulf (Proventil 0.083% 2.5MG/3ML), 2.5 MG INH PRN Fluticasone Prop/Salmeterol (Advair Diskus 250/50 60 Dose), 2 PUFF INH BID Lisinopril (Lisinopril), 10 MG PO QAM Pantoprazole (Protonix), 40 MG PO QAM Allergies Coded Allergies: Lactose Intolerance (GI) (Verified Allergy, Intermediate, abdomainal cramps, diarrhea, 05/30/17) Mold (Blue) Cheese (Verified Allergy, Intermediate, rash, 05/30/17) Penicillins (Verified Allergy, Intermediate, ITCHY BLOTCHES, 05/30/17) Amitriptyline (Verified Allergy, Unknown, chest tightness difficulty breathing unable to function, 05/30/17) Naproxen (Verified Allergy, Unknown, ITCHY, 05/30/17) Red Dye (Verified Allergy, Unknown, HIVES, 05/30/17) Physical Exam Vital Signs Date Time Temp Pulse Resp B/P (MAP) Pulse Ox O2 Delivery O2 Flow Rate FiO2 05/30/17 16:58 95 15 148/96 95 Room Air 05/30/17 16:46 92 123/103 05/30/17 14:48 97 18 151/109 95 Room Air 05/30/17 13:56 95 18 145/109 96 05/30/17 13:25 94 18 147/109 93 Room Air 05/30/17 13:03 98 18 148/122 96 Room Air 05/30/17 12:51 103 18 150/107 93 Room Air 05/30/17 11:58 108 18 168/127 96 Room Air 05/30/17 10:56 111 16 149/125 96 Room Air 05/30/17 10:48 111 05/30/17 10:42 37.3 114 18 148/118 97 Room Air Physical Exam GENERAL: Patient is in no acute distress. HEENT: No acute trauma, normocephalic atraumatic, mucous membranes moist, no nasal congestion, no scleral icterus. NECK: No stridor, no adenopathy, no meningismus, trachea is midline. LUNGS: Clear to auscultation bilaterally, no wheeze, no rhonchi, breath sounds equal. HEART: Tachycardic with regular rhythm. No murmurs. ABDOMEN: Soft, significantly tender in the epigastrium and right upper quadrant , bowel sounds positive, no hernias, no peritonitis. EXTREMITIES: No cyanosis or edema, full range of motion of all the joints without pain or difficulty, no signs for acute trauma. NEUROLOGIC: Oriented x 3, no acute motor or sensory deficits, no focal weakness. SKIN: No rash, no jaundice, no diaphoresis. Medical Decision & Procedures ER Provider Diagnostic Interpretation: Radiology results as stated below per my review and radiologist interpretation: ABDOMINAL ULTRASOUND, RIGHT UPPER QUADRANT HISTORY: Generalized abdominal pain.. COMPARISON: Abdomen and pelvis CT 04/27/2017. FINDINGS: Pancreas: The pancreatic head and tail are obscured by overlying bowel gas. The remaining portions of the pancreas are within normal limits. Liver: The liver is echogenic consistent with fatty change. 21 cm in length. The hepatic lesion seen on the prior abdomen and pelvis CT is not identified on this study. Gallbladder: No gallbladder wall thickening. No gallstones. CBD: Difficult to visualize due to the patency steatosis but likely measures 6 mm. Right kidney: No hydronephrosis. IMPRESSION: 1. Hepatomegaly demonstrating fatty change. 2. Normal gallbladder. No gallstones. 3. The pancreas was not well visualized. Electronically signed by: Edwin Nails M.D. 05/30/2017 2:00 PM Dictated Date/Time: 05/30/2017 1:58 PM ABDOMEN 2VIEW W/PA CHEST RTN CLINICAL HISTORY: ABDOMINAL PAIN/GI pain. Nausea. COMPARISON STUDY: No previous studies for comparison. FINDINGS: The soft tissues, psoas shadows, renal outlines and intestinal gas pattern appear normal. There is no evidence for bowel obstruction. There is no evidence for free intraperitoneal air. No abnormal abdominal calcifications are seen. A frontal view of the chest was performed and is unremarkable. IMPRESSION: Normal study. The above report was generated using voice recognition software. It may contain grammatical, syntax or spelling errors. Electronically signed by: Derik Collier M.D. 05/30/2017 12:00 PM Dictated Date/Time: 05/30/2017 11:59 AM Laboratory Results 05/30/17 10:42 Red Blood Count 4.99, Mean Corpuscular Volume 84.6, Mean Corpuscular Hemoglobin 28.1, Mean Corpuscular Hemoglobin Concent 33.2, Mean Platelet Volume 9.6, Neutrophils (%) (Auto) 58.8, Lymphocytes (%) (Auto) 28.9, Monocytes (%) (Auto) 8.8, Eosinophils (%) (Auto) 2.2, Basophils (%) (Auto) 0.9, Neutrophils # (Auto) 3.19, Lymphocytes # (Auto) 1.57, Monocytes # (Auto) 0.48, Eosinophils # (Auto) 0.12, Basophils # (Auto) 0.05 05/30/17 10:42 Test 05/30/17 10:42 05/30/17 17:47 05/30/17 17:58 White Blood Count 5.43 K/uL (4.8-10.8) Red Blood Count 4.99 M/uL (4.7-6.1) Hemoglobin 14.0 g/dL (14.0-18.0) Hematocrit 42.2 % (42-52) Mean Corpuscular Volume 84.6 fL (80-100) Mean Corpuscular Hemoglobin 28.1 pg (25-34) Mean Corpuscular Hemoglobin Concent 33.2 g/dl (32-36) Platelet Count 238 K/uL (130-400) Mean Platelet Volume 9.6 fL (7.4-10.4) Neutrophils (%) (Auto) 58.8 % Lymphocytes (%) (Auto) 28.9 % Monocytes (%) (Auto) 8.8 % Eosinophils (%) (Auto) 2.2 % Basophils (%) (Auto) 0.9 % Neutrophils # (Auto) 3.19 K/uL (1.4-6.5) Lymphocytes # (Auto) 1.57 K/uL (1.2-3.4) Monocytes # (Auto) 0.48 K/uL (0.11-0.59) Eosinophils # (Auto) 0.12 K/uL (0-0.5) Basophils # (Auto) 0.05 K/uL (0-0.2) RDW Standard Deviation 45.1 fL (36.4-46.3) RDW Coefficient of Variation 14.7 % (11.5-14.5) Immature Granulocyte % (Auto) 0.4 % Immature Granulocyte # (Auto) 0.02 K/uL (0.00-0.02) Prothrombin Time 10.6 SECONDS (9.0-12.0) Prothromb Time International Ratio 1.0 (0.9-1.1) Activated Partial Thromboplast Time 22.6 SECONDS (21.0-31.0) Partial Thromboplastin Ratio 0.9 Anion Gap 11.0 mmol/L (3-11) Est Creatinine Clear Calc Drug Dose 113.8 ml/min Estimated GFR () 96.7 Estimated GFR (Non- 83.4 BUN/Creatinine Ratio 4.5 (10-20) Calcium Level 8.7 mg/dl (8.5-10.1) Magnesium Level 1.5 mg/dl (1.8-2.4) Total Bilirubin 1.2 mg/dl (0.2-1) Aspartate Amino Transf (AST/SGOT) 160 U/L (15-37) Alanine Aminotransferase (ALT/SGPT) 90 U/L (12-78) Alkaline Phosphatase 131 U/L (45-117) Total Protein 7.7 gm/dl (6.4-8.2) Albumin 3.6 gm/dl (3.4-5.0) Globulin 4.1 gm/dl (2.5-4.0) Albumin/Globulin Ratio 0.9 (0.9-2) Laboratory results reviewed by me. Medications Administered Medications (Trade) Dose Ordered Sig/Reena Route Start Time Stop Time Status Last Admin Dose Admin Morphine Sulfate (MoRPHine SULFATE INJ) 6 mg Q30M PRN IV 05/30/17 11:15 06/13/17 11:14 05/30/17 13:02 6 MG Promethazine HCl 12.5 mg/Sodium Chloride 50.5 ml @ 202 mls/hr TODAY@1108 IV 05/30/17 11:08 05/30/17 16:00 DC 05/30/17 11:21 202 MLS/HR Magnesium Sulfate (Magnesium Sulfate 1gm / D5W) 2 gm NOW STAT IV 05/30/17 11:44 05/30/17 11:45 DC 05/30/17 12:04 2 GM Labetalol HCl (Normodyne IV) 20 mg NOW STAT IV 05/30/17 12:04 05/30/17 12:05 DC 05/30/17 12:49 20 MG Labetalol HCl (Normodyne IV) 20 mg NOW STAT IV 05/30/17 14:07 05/30/17 14:09 DC 05/30/17 14:47 20 MG Sodium Chloride 500 ml @ 999 mls/hr Q31M STAT IV 05/30/17 14:07 05/30/17 14:37 DC 05/30/17 14:44 999 MLS/HR Hydromorphone HCl (Dilaudid Inj) 0.5 mg NOW STAT IV 05/30/17 14:14 05/30/17 14:15 DC 05/30/17 14:44 0.5 MG Hydromorphone HCl (Dilaudid Inj) 0.5 mg NOW STAT IV 05/30/17 16:51 05/30/17 16:52 DC 05/30/17 16:58 0.5 MG ED Course 1105: The patient was evaluated in room C9. A complete history and physical exam was performed. 1108: Promethazine HCl 12.5mg/ Sodium Chloride 50.5ml @ 202mls/hr IV 1115: Morphine Sulfate 6mg IV 1144: Magnesium Sulfate 2gm IV 1204: Labetalol 20mg IV 1407: Sodium Chloride 500 ml @ 999 mls/hr IV, Labetalol HCl 20mg IV 1408: I reevaluated the patient, and he was still having pain. I discussed the treatment plan with him. He is going to be evaluated for further management by the hospitalist. 1414: Dilaudid 0.5mg IV 1442: Discussed the patient's case with Dr. Wilfrid Mejia - [facility] [place] , and he wants the patient to be transferred to [facility]. 1452: I discussed the patient's case with Dr. Carolina ALVA, and he recommends talking to Dr. Mcdaniels of since he knows the patient well. 1456: I discussed the patient's case with Dr. Mcdaniels - ARTIE, he said to call [facility] for transfer. 1511: I reevaluated the patient, and he was unhappy about going to [facility]. 1515: I reassessed the patient, and he is refusing to go to [facility]. His mother called, and said that he is absolutely not gong there, and she wants Dr. Mcdaniels to call her. 1527: Discussed the patient's case with Dr. Wilfrid Calzada [facility] [place] Hospitalist. He will evaluate the patient. 1608: I talked with Dr. Wilfrid Calzada [facility] [place], and he states that the patient is now willing to go to [facility] 1612: Dr. Mcdaniels states that the patient is willing to go to [facility], and he wants me to call [facility] to see if they are willing to accept the patient. 1651: Dilaudid 0.5mg IV 1702: I discussed the patient's case with Dr. Duffy - Internal Medicine [facility], and he said that there is nothing tertiary care is able to offer the patient. 1710: Discussed the patient's case with Dr. Wilfrid Calzada [facility] [place] Hospitalist. The patient will be evaluated at out facility for further management. Medical Decision Differential diagnoses include: dehydration, electrolyte imbalance, anemia, gastritis, ulcer, biliary colic, liver disease, bowel obstruction, acute cholecystitis. There is no leukocytosis or concerning anemia. No kidney failure. Magnesium is low at 1.5. His liver enzymes are elevated. Pancreatic enzymes are normal. Obstruction series shows no pneumonia, free air or bowel obstruction. Gallbladder ultrasound does not show gallstones or acute cholecystitis. On exam , the patient was significantly tender in the right upper quadrant. He was tachycardic and hypertensive. Patient received IV saline, IV morphine, he received several doses of IV morphine with minimal effect. He then was ordered for IV Dilaudid for pain control. He received 2 doses of IV labetalol to help with the blood pressure control. He received IV Phenergan for control of nausea. Patient received IV magnesium. The cause for the patient's presentation is unclear. He has had similar presentations in the past without a true diagnosis. I spoke to GI, I spoke with the on-call hospitalist. They recommended transfer to [facility] in [place]. I spoke with the patient and his mother about the transfer. I did consult with the hospitalist at [facility], they did not feel tertiary care was required and felt the patient could stay in our facility. I then spoke again with the on- call [facility] hospitalist. The patient will be hospitalized at our facility for further care. Medication Reconcilliation Current Medication List: was personally reviewed by me Blood Pressure Screening Patient's blood pressure: Elevated blood pressure Monitored by the hospitalist. Consults Time Called: 1417 Consulting Physician: Dr. Wilfrid SCHWARTZ Hospitalist Returned Call: 1442, 1527 Discussed the patient's case with Dr. Wilfrid SCHWARTZ Hospitalist, and he wants the patient to be transferred to [facility]. Discussed the patient's case with Dr. Wilfrid SCHWARTZ Hospitalist. The patient will be evaluated for further management. Additional Consults: Time Called: 1448 Consulted Physician: Dr. Carolina ALVA Returned Call: 1452 Additional Comments: I discussed the patient's case with Dr. Carolina ALVA, and he recommends talking to Dr. Flores since he knows the patient well. Time Called: 1454, 1516 Consulted Physician: Dr. Enedelia ALVA Returned Call: 1456, 1520 Additional Comments: I discussed the patient's case with Dr. Enedelia ALVA, he said to call [facility] for transfer. Impression Primary Impression: Vomiting Additional Impressions: Right upper quadrant abdominal pain HTN (hypertension) Dehydration Elevated liver enzymes Critical Care I have personally spent greater than 30 minutes of critical care time in the direct management of this patient. This includes bedside care, interpretation of diagnostic studies and testing, discussion with consultants, the patient, and family members, and other required patient management activities. This 30 minutes is in excess of all separately billable procedures. Scribe Attestation The scribe's documentation has been prepared under my direction and personally reviewed by me in its entirety. I confirm that the note above accurately reflects all work, treatment, procedures, and medical decision making performed by me. Departure Information Dispostion Being Evaluated By Hospitalist Referrals Noemy Lombardi DO (PCP) Patient Instructions My [facility] Problem Qualifiers
[2017-05-30 11:28] LABS: BASO % 0.9 %; BASO ABS # 0.05 K/uL (0-0.2); EOS % 2.2 %; EOS ABS # 0.12 K/uL (0-0.5); HEMATOCRIT 42.2 % (42-52); IG# 0.02 K/uL (0.00-0.02); LYMPH % 28.9 %; LYMPH ABS # 1.57 K/uL (1.2-3.4); MEAN CELL VOLUME 84.6 fL (80-100); MEAN CORPUSCULAR HEMOGLOBIN 28.1 pg (25-34); MEAN CORPUSCULAR HGB CONC 33.2 g/dl (32-36); MEAN PLATELET VOLUME 9.6 fL (7.4-10.4); MONO % 8.8 %; MONO ABS # 0.48 K/uL (0.11-0.59); NEUT % 58.8 %; NEUT ABS # 3.19 K/uL (1.4-6.5); PLATELET COUNT 238 K/uL (130-400); RED CELL DISTRIBUTION WIDTH CV 14.7 % (11.5-14.5); RED CELL DISTRIBUTION WIDTH SD 45.1 fL (36.4-46.3); WHITE BLOOD COUNT 5.43 K/uL (4.8-10.8)
[2017-05-30 11:32] LABS: PTT PATIENT 22.6 SECONDS (21.0-31.0)
[2017-05-30 11:35] LABS: ALBUMIN 3.6 gm/dl (3.4-5.0); CALCIUM 8.7 mg/dl (8.5-10.1); CREATININE 1.14 mg/dl (0.60-1.40); POTASSIUM 3.2 mmol/L (3.5-5.1)
[2017-05-30 11:38] LABS: TOTAL PROTEIN 7.7 gm/dl (6.4-8.2)
[2017-05-30] MEDS ORDERED: MAGNESIUM SULFATE 1GM / D5W 1 GM BAG IV STA (11:44)
--- NOTE | 2017-05-30 12:01 | DIAGNOSTIC IMAGING REPORT ---
ABDOMEN 2VIEW W/PA CHEST RTN CLINICAL HISTORY: ABDOMINAL PAIN/GI pain. Nausea. COMPARISON STUDY: No previous studies for comparison. FINDINGS: The soft tissues, psoas shadows, renal outlines and intestinal gas pattern appear normal. There is no evidence for bowel obstruction. There is no evidence for free intraperitoneal air. No abnormal abdominal calcifications are seen. A frontal view of the chest was performed and is unremarkable. IMPRESSION: Normal study. The above report was generated using voice recognition software. It may contain grammatical, syntax or spelling errors. Electronically signed by: Derik Collier M.D. 05/30/2017 12:00 PM Dictated Date/Time: 05/30/2017 11:59 AM
[2017-05-30] MEDS ORDERED: LABETALOL HCL IV 5 MG/ML 20ML IV STA ×2 (12:04→14:07)
--- NOTE | 2017-05-30 14:01 | DIAGNOSTIC IMAGING REPORT ---
ABDOMINAL ULTRASOUND, RIGHT UPPER QUADRANT HISTORY: Generalized abdominal pain.. COMPARISON: Abdomen and pelvis CT 04/27/2017. FINDINGS: Pancreas: The pancreatic head and tail are obscured by overlying bowel gas. The remaining portions of the pancreas are within normal limits. Liver: The liver is echogenic consistent with fatty change. 21 cm in length. The hepatic lesion seen on the prior abdomen and pelvis CT is not identified on this study. Gallbladder: No gallbladder wall thickening. No gallstones. CBD: Difficult to visualize due to the patency steatosis but likely measures 6 mm. Right kidney: No hydronephrosis. IMPRESSION: 1. Hepatomegaly demonstrating fatty change. 2. Normal gallbladder. No gallstones. 3. The pancreas was not well visualized. Electronically signed by: Edwin Nails M.D. 05/30/2017 2:00 PM Dictated Date/Time: 05/30/2017 1:58 PM
[2017-05-30] MEDS ORDERED: SODIUM CHLORIDE 0.9% 500ML 500 ML IV STA (14:07)
[2017-05-30] MEDS ORDERED: HYDROmorphone INJ 2 MG/ML SYR/VIAL IV STA ×2 (14:14→16:51)
--- NOTE | 2017-05-30 16:33 | Gastrointestinal Consultation ---
Gastrointestinal Consultation Date of Consultation: May 30, 2017 Attending Physician: DR Rodney Consulting Physician: Dr Kyle Mcdaniels Reason for Consultation: abd pain,elevatedLFTS History of Present Illness Patient is a 32 year old male with cc n/v, and abd pain. HPI Pt has had multiple admits for RUQ pain, n/v and elevated Lfts with hepatomegaly and liver biopsy showing severe steatosis. Last admit he was transferred to [facility] but do not have records on what was done there. He had EGD102/09/1617 grade B esohagitis, MRCP 03/2017 neg for biliary obtruction but 12 mm R hepatic lesion and fatty liver. GB EF was 85% on HIDA 05/01/17. He is not a drinker of ETOH. LFTs were coming down but are up again today. Today acute onset of n/v and worsening RUQ pain. Lipase normal. LFTS worse thatn 04/30/17. Vomited stomach contents and bile and only small amount of possible coffee ground material. He is moving his bowels with normal brown stools. Surgeon in past asked to see him for GB removal but declined. 12/2016 am cortisol normal. One imaging study suggested GB sludge but stones never mentioned. Past Medical/Surgical History Medical Problems: (1) Acute renal failure Status: Acute (2) Anemia Status: Acute (3) Back pain Status: Acute (4) Bilateral flank pain Status: Acute (5) Biliary obstruction Status: Acute (6) Contusion of foot Status: Acute (7) Dehydration Status: Acute (8) Dehydration Status: Acute (9) Elevated bilirubin Status: Acute (10) Elevated liver enzymes Status: Acute (11) Esophagitis Status: Acute (12) Flank pain Status: Acute (13) Headache Status: Acute (14) Hematuria Status: Acute (15) Hematuria Status: Acute (16) HTN (hypertension) Status: Acute (17) Hypertension Status: Acute (18) Hypokalemia Status: Acute (19) Hypokalemia Status: Acute (20) Hypomagnesemia Status: Acute (21) Intractable vomiting Status: Acute (22) Lumbar back pain Status: Acute (23) Right upper quadrant abdominal pain Status: Acute (24) UTI (urinary tract infection) Status: Acute (25) Vomiting Status: Acute Family History Asthma Cancer Diabetes mellitus FH: heart disease FHx: lung disease Hypertension Kidney disease Kidney stones Stroke Social History Smoking Status: Never Smoker Alcohol Use: none Drug Use: none Marital Status: single Housing Status: lives with family Occupation Status: unemployed Allergies Coded Allergies: Lactose Intolerance (GI) (Verified Allergy, Intermediate, abdomainal cramps, diarrhea, 05/30/17) Mold (Blue) Cheese (Verified Allergy, Intermediate, rash, 05/30/17) Penicillins (Verified Allergy, Intermediate, ITCHY BLOTCHES, 05/30/17) Amitriptyline (Verified Allergy, Unknown, chest tightness difficulty breathing unable to function, 05/30/17) Naproxen (Verified Allergy, Unknown, ITCHY, 05/30/17) Red Dye (Verified Allergy, Unknown, HIVES, 05/30/17) Current Medications Home Meds and Scripts Medications Dose Route/Sig Max Daily Dose Days Date Category Protonix (Pantoprazole Sodium) 40 Mg Tab 40 Mg PO QAM 05/30/17 Reported Lisinopril 10 Mg Tab 10 Mg PO QAM 01/28/17 Reported Advair Diskus 250/50 60 Dose (Fluticasone Prop/Salmeterol) 1 Ea Aerp 2 Puff INH BID 08/14/16 Reported Proventil 0.083% 2.5MG/3ML (Albuterol Sulf) 2.5 Mg/3 Ml Nebu 2.5 Mg INH PRN 03/18/16 Reported Ventolin Hfa (Albuterol) 200 Puffs/17526 Mcg Aers 2-4 Puffs INH BID 03/18/16 Reported Review of Systems see HPI. Otherwise 10 ROS negative. Physical Exam Date Time Temp Pulse Resp B/P (MAP) Pulse Ox O2 Delivery O2 Flow Rate FiO2 05/30/17 14:48 97 18 151/109 95 Room Air 05/30/17 13:56 95 18 145/109 96 05/30/17 13:25 94 18 147/109 93 Room Air 05/30/17 13:03 98 18 148/122 96 Room Air 05/30/17 12:51 103 18 150/107 93 Room Air 05/30/17 11:58 108 18 168/127 96 Room Air 05/30/17 10:56 111 16 149/125 96 Room Air 05/30/17 10:48 111 05/30/17 10:42 37.3 114 18 148/118 97 Room Air General Appearance: WD/WN, no apparent distress Eyes: normal inspection, PERRL ENT: hearing grossly normal, pharynx normal Neck: supple, trachea midline Respiratory/Chest: lungs clear, no respiratory distress Cardiovascular: regular rate, rhythm, no edema Abdomen: normal bowel sounds, soft, + guarding (RUQ guarding but no rebound) Extremities: normal range of motion Neurologic/Psych: director of learning II-XII nml as tested, normal mood/affect, oriented x 3 Skin: warm/dry Laboratory Results Last 24 Hours Test 05/30/17 10:42 White Blood Count 5.43 K/uL Red Blood Count 4.99 M/uL Hemoglobin 14.0 g/dL Hematocrit 42.2 % Mean Corpuscular Volume 84.6 fL Mean Corpuscular Hemoglobin 28.1 pg Mean Corpuscular Hemoglobin Concent 33.2 g/dl Platelet Count 238 K/uL Mean Platelet Volume 9.6 fL Neutrophils (%) (Auto) 58.8 % Lymphocytes (%) (Auto) 28.9 % Monocytes (%) (Auto) 8.8 % Eosinophils (%) (Auto) 2.2 % Basophils (%) (Auto) 0.9 % Neutrophils # (Auto) 3.19 K/uL Lymphocytes # (Auto) 1.57 K/uL Monocytes # (Auto) 0.48 K/uL Eosinophils # (Auto) 0.12 K/uL Basophils # (Auto) 0.05 K/uL RDW Standard Deviation 45.1 fL RDW Coefficient of Variation 14.7 % Immature Granulocyte % (Auto) 0.4 % Immature Granulocyte # (Auto) 0.02 K/uL Prothrombin Time 10.6 SECONDS Prothromb Time International Ratio 1.0 Activated Partial Thromboplast Time 22.6 SECONDS Partial Thromboplastin Ratio 0.9 Sodium Level 138 mmol/L Potassium Level 3.2 mmol/L Chloride Level 101 mmol/L Carbon Dioxide Level 26 mmol/L Anion Gap 11.0 mmol/L Blood Urea Nitrogen 5 mg/dl Creatinine 1.14 mg/dl Est Creatinine Clear Calc Drug Dose 113.8 ml/min Estimated GFR () 96.7 Estimated GFR (Non- 83.4 BUN/Creatinine Ratio 4.5 Random Glucose 101 mg/dl Calcium Level 8.7 mg/dl Magnesium Level 1.5 mg/dl Total Bilirubin 1.2 mg/dl Aspartate Amino Transf (AST/SGOT) 160 U/L Alanine Aminotransferase (ALT/SGPT) 90 U/L Alkaline Phosphatase 131 U/L Total Protein 7.7 gm/dl Albumin 3.6 gm/dl Globulin 4.1 gm/dl Albumin/Globulin Ratio 0.9 Lipase 120 U/L Impression severe fatty liver--unclear etiiology elevated LFTS--worse recurrent RUQ pain--unclear etiology hepatomegaly--secondary to severe fatty liver n/v--unclear etiology GB sludge R hepatic lesion 12 mm first noted on CT 03/08/1718 grade B esophagitis--PPI Etiology of RUQ pain and severe steatosis unclear. Surgery in past has declined to do GB surgery. After ok from patient discussed case with patients mother on phone. She thinks he needs his GB removed and might eliminate the n/v and abd pain which may in fact be correct. However, I can only consult them but cannot force them to remove GB. I told both patient and mother if they want him admitted here for pain meds, IV and surgery consult then fine but I feel like our GI group has racked their brains over multiple admits and would like him to go to [facility] (insurance pays to go there) as transfer if they will take him to get help with his workup and treatment. Discussed with Dr Mejia and Dr Rodney. If he is inpt here then one of our group will follow in the hospital. Pt seems in agreement to go to [facility] but whether they will take him is as yet unkwown.
[2017-05-30] MEDS ORDERED: ZOLPIDEM TARTRATE 5 MG TAB PO PRN ×2 (18:00)
[2017-05-30] MEDS ORDERED: ALBUTEROL 0.083% NEBU SOLN 3 ML VIAL INH PRN (18:00)
[2017-05-30] MEDS ORDERED: POLYETHYLENE (MIRALAX) 17 GM PACK PO PRN (18:00)
[2017-05-30] MEDS ORDERED: ONDANSETRON INJ 2 MG/ML 2 ML VIAL IV PRN (18:00)
[2017-05-30] MEDS ORDERED: ALUMINUM/MAGNESIUM/SIMETH (MAALOX MAX) 30 ML UDC PO PRN (18:00)
[2017-05-30] MEDS ORDERED: MAGNESIUM HYDROXIDE SUSP 30 ML UDC PO PRN (18:00)
[2017-05-30] MEDS ORDERED: HydrALAZINE HCL 20 MG/ML VIAL IV. PRN (18:15)
[2017-05-30 18:43] VITALS: Ht 185.4 cm; Wt 100.4 kg
[2017-05-30] MEDS ORDERED: HYDROmorphone INJ 0.5 MG/0.5 ML SYR IV ONE (19:00)
[2017-05-30 19:15] VITALS: BP 111/78; PULSE 99; TEMP 36.7; O2SAT 91
--- NOTE | 2017-05-30 19:20 | History and Physical ---
History & Physical Date & Time of Service: May 30, 2017 at 18:27 Chief Complaint: Abdominal Pain Primary Care Physician: Noemy Lombardi DO History of Present Illness Source: patient, hospital records 52-year-old man with complicated past medical history, hypertension, asthma, posttraumatic stress disorder, bipolar disorder, renal stones, ADHD, history of bilateral pneumonia and history of bilateral pulmonary embolism 7 years ago . Patient has multiple admissions to the hospital with exacerbated right upper quadrant pain, vomiting, elevated liver enzymes. Last admission patient was transferred to [facility]. His liver enzymes improved slowly in [facility] and he was discharged from there with an appointment with human capital analyst Dr. Cortes on June 05 , at 11:30 AM. Today patient presented with acute onset right upper quadrant and epigastric pain associated with projectile vomiting. Denies any hematemesis. Denies any fever or chills. Reported his pain 8 out of 10. Squeezing/crampy. No other relieving or aggravating factors. Patient takes lisinopril at home for His blood pressure was unable to take his medications due to the nausea and vomiting. Blood pressure on arrival was 168/127. As patient was sent to [facility] in the past we tried to transfer him to [facility] as per doctor's Dadson recommendation. Unfortunately [facility] did not think that they have anything to do differently as patient already has an appointment with human capital analyst reference article; Neth J Med. 1994;46(2):95-8. Chronic hepatitis caused by lisinopril. Past Medical/Surgical History Medical Problems: (1) Abdominal pain (2) Acute renal failure (3) Anemia (4) Anemia (5) Asthma (6) Back pain (7) Back pain (8) Bilateral flank pain (9) Bilateral flank pain (10) Biliary obstruction (11) Brain bleed (12) Broken back (13) Chronic headache (14) Contusion of foot (15) Dehydration (16) Elevated bilirubin (17) Esophagitis (18) Flank pain (19) Flank pain (20) Headache (21) Hematuria (22) Hematuria (23) Hepatitis (24) Hypertension (25) Hypokalemia (26) Hypokalemia (27) Hypomagnesemia (28) Intractable vomiting (29) Lumbar back pain (30) Malingerer (31) Postconcussive syndrome (32) PTSD (post-traumatic stress disorder) (33) UTI (urinary tract infection) (34) Vomiting (35) Vomiting Family History Asthma Cancer Diabetes mellitus FH: heart disease FHx: lung disease Hypertension Kidney disease Kidney stones Stroke Social History Smoking Status: Never Smoker Drug Use: none Marital Status: single Housing status: lives with family Occupational Status: unemployed Allergies Coded Allergies: Lactose Intolerance (GI) (Verified Allergy, Intermediate, abdomainal cramps, diarrhea, 05/30/17) Mold (Blue) Cheese (Verified Allergy, Intermediate, rash, 05/30/17) Penicillins (Verified Allergy, Intermediate, ITCHY BLOTCHES, 05/30/17) Amitriptyline (Verified Allergy, Unknown, chest tightness difficulty breathing unable to function, 05/30/17) Naproxen (Verified Allergy, Unknown, ITCHY, 05/30/17) Red Dye (Verified Allergy, Unknown, HIVES, 05/30/17) Home Medications Scheduled Albuterol Hfa (Ventolin Hfa), 2-4 PUFFS INH BID Albuterol Sulf (Proventil 0.083% 2.5MG/3ML), 2.5 MG INH PRN Fluticasone Prop/Salmeterol (Advair Diskus 250/50 60 Dose), 2 PUFF INH BID Lisinopril (Lisinopril), 10 MG PO QAM Pantoprazole (Protonix), 40 MG PO QAM Review of Systems Review of system Constitutional: No fever / no chills / no sweats / no weakness / no fatigue Eyes: no blurring of vision / no eye pain / no discharge / no redness ENT: no hearing loss / no epistaxis /no swallowing problems Respiratory: no cough / no wheezing / no SOB / no hemoptysis Cardiovascular: no Chest pain / no lower extremity edema / no palpitation Abdomen: Right upper quadrant pain associated with nausea/vomiting as mentioned in HPI/ no constipation Musculoskeletal: no joint pain / no muscle pain / no joint swelling Genitourinary: no dysuria / no incontinence / no urinary retention Neurologic: no focal weakness / no numbness/tingling / no ataxia Psychiatric: no depression symptoms / no anxiety / no insomnia Endocrine: no excessive thirst / no excessive urination Hematologic: no abnormal bleeding / no bruising / no LN swelling Skin: No rash / no pallor Physical Exam Vital Signs Date Time Temp Pulse Resp B/P (MAP) Pulse Ox O2 Delivery O2 Flow Rate FiO2 05/30/17 16:58 95 15 148/96 95 Room Air 05/30/17 16:46 92 123/103 05/30/17 14:48 97 18 151/109 95 Room Air 05/30/17 13:56 95 18 145/109 96 05/30/17 13:25 94 18 147/109 93 Room Air 05/30/17 13:03 98 18 148/122 96 Room Air 05/30/17 12:51 103 18 150/107 93 Room Air 05/30/17 11:58 108 18 168/127 96 Room Air 05/30/17 10:56 111 16 149/125 96 Room Air 05/30/17 10:48 111 05/30/17 10:42 37.3 114 18 148/118 97 Room Air Physical examination General patient appears to be comfortable, not in acute distress HEENT: Atraumatic , normocephalic /no jaundice /no pallor /anicteric /no dry mucous membrane /normal external ear inspection Neck: Supple /no swelling /central trach Heart: S1/S2 normal/regular rate and rhythm/no gallop /no rub /no murmur Lungs: Clear to auscultation bilaterally/normal chest with expansion/no rhonchi/ no rales/no wheezing/no use of accessory muscles of respiration Abdomen: Significant right upper quadrant tenderness on palpation no rebound/no organomegaly/no pulsatile mass Musculoskeletal: No swelling/no edema/no tenderness/normal range of motion Neuro exam: Awake alert oriented 3/cranial nerves II through XII appear to be intact/sensation intact/moves all extremities/no abnormal movements Psychiatric evaluation: No depressed mood/normal affect Skin: No rash on exposed skin area/no erythema Extremity: Normal pulse/no pitting edema/no clubbing or cyanosis Endocrine/lymphatic: No obvious lymphadenopathy /no lymphedema Diagnostics Laboratory Results Results Past 24 Hours Test 05/30/17 10:42 05/30/17 17:47 05/30/17 17:58 Range/Units White Blood Count 5.43 4.8-10.8 K/uL Red Blood Count 4.99 4.7-6.1 M/uL Hemoglobin 14.0 14.0-18.0 g/dL Hematocrit 42.2 42-52 % Mean Corpuscular Volume 84.6 80-100 fL Mean Corpuscular Hemoglobin 28.1 25-34 pg Mean Corpuscular Hemoglobin Concent 33.2 32-36 g/dl Platelet Count 238 130-400 K/uL Mean Platelet Volume 9.6 7.4-10.4 fL Neutrophils (%) (Auto) 58.8 % Lymphocytes (%) (Auto) 28.9 % Monocytes (%) (Auto) 8.8 % Eosinophils (%) (Auto) 2.2 % Basophils (%) (Auto) 0.9 % Neutrophils # (Auto) 3.19 1.4-6.5 K/uL Lymphocytes # (Auto) 1.57 1.2-3.4 K/uL Monocytes # (Auto) 0.48 0.11-0.59 K/uL Eosinophils # (Auto) 0.12 0-0.5 K/uL Basophils # (Auto) 0.05 0-0.2 K/uL RDW Standard Deviation 45.1 36.4-46.3 fL RDW Coefficient of Variation 14.7 11.5-14.5 % Immature Granulocyte % (Auto) 0.4 % Immature Granulocyte # (Auto) 0.02 0.00-0.02 K/uL Prothrombin Time 10.6 9.0-12.0 SECONDS Prothromb Time International Ratio 1.0 0.9-1.1 Activated Partial Thromboplast Time 22.6 21.0-31.0 SECONDS Partial Thromboplastin Ratio 0.9 Sodium Level 138 136-145 mmol/L Potassium Level 3.2 3.5-5.1 mmol/L Chloride Level 101 98-107 mmol/L Carbon Dioxide Level 26 21-32 mmol/L Anion Gap 11.0 3-11 mmol/L Blood Urea Nitrogen 5 7-18 mg/dl Creatinine 1.14 0.60-1.40 mg/dl Est Creatinine Clear Calc Drug Dose 113.8 ml/min Estimated GFR () 96.7 Estimated GFR (Non- 83.4 BUN/Creatinine Ratio 4.5 10-20 Random Glucose 101 70-99 mg/dl Calcium Level 8.7 8.5-10.1 mg/dl Magnesium Level 1.5 1.8-2.4 mg/dl Total Bilirubin 1.2 0.2-1 mg/dl Aspartate Amino Transf (AST/SGOT) 160 15-37 U/L Alanine Aminotransferase (ALT/SGPT) 90 12-78 U/L Alkaline Phosphatase 131 45-117 U/L Total Protein 7.7 6.4-8.2 gm/dl Albumin 3.6 3.4-5.0 gm/dl Globulin 4.1 2.5-4.0 gm/dl Albumin/Globulin Ratio 0.9 0.9-2 Lipase 120 73-393 U/L Diagnostic Radiology ABDOMINAL ULTRASOUND, RIGHT UPPER QUADRANT HISTORY: Generalized abdominal pain.. COMPARISON: Abdomen and pelvis CT 04/27/2017. FINDINGS: Pancreas: The pancreatic head and tail are obscured by overlying bowel gas. The remaining portions of the pancreas are within normal limits. Liver: The liver is echogenic consistent with fatty change. 21 cm in length. The hepatic lesion seen on the prior abdomen and pelvis CT is not identified on this study. Gallbladder: No gallbladder wall thickening. No gallstones. CBD: Difficult to visualize due to the patency steatosis but likely measures 6 mm. Right kidney: No hydronephrosis. IMPRESSION: 1. Hepatomegaly demonstrating fatty change. 2. Normal gallbladder. No gallstones. 3. The pancreas was not well visualized. Impression Assessment and Plan 52-year-old man with complicated past medical history, hypertension, asthma, posttraumatic stress disorder, bipolar disorder, renal stones, ADHD, history of bilateral pneumonia and history of bilateral pulmonary embolism 7 years ago . Presented with recurrent right upper quadrant pain/nausea vomiting and elevated liver enzymes. Assessment Hypertension urgency secondary to inability to take oral blood pressure meds recurrent idiopathic hepatitis Hepatic steatosis, but liver biopsy proven Nausea/vomiting/right upper quadrant pain History of asthma without exacerbation Posttraumatic stress syndrome bipolar disorder Renal stones ADHD History of bilateral pulmonary embolism plan: Admit patient to [facility] Currently blood pressure is under control Based on literature research, lisinopril was associated with cases of chronic hepatitis. Discussed with patient the above-mentioned fact, stopped lisinopril and started patient on metoprolol twice a day Consult farm mechanic was appreciated case discussed with Angela Hurst who recommended transferred to [facility], unfortunately [facility] refused transfer based on the fact that the patient has an appointment with her human capital analyst on May, and they did not think they can do anything differently. Dr. Miller also recommended surgical consult for potential removal of gallbladder. One previous study showed sludge in the gallbladder, otherwise all of his imaging and studies were negative for any abnormality in the gallbladder including HIDA scan which was normal. Pain management by oxycodone. Patient was instructed to follow-up with his appointment at [facility] and was given a letter with his human capital analyst team, Dr. Rucker on June 05 at 11:30 AM and [facility]. Currently the goal is to control patient's symptoms Zofran for vomiting Protonix IV twice daily for gastritis DVT prophylaxis GI and surgical consult appreciated. has multiple admissions to the hospital with exacerbated right upper quadrant pain, vomiting, elevated liver enzymes. Last admission patient was transferred to [facility]. His liver enzymes improved slowly in [facility] and he was discharged from there with an appointment with human capital analyst Dr. Cortes on June 05, at 11:30 AM. Today patient presented with acute onset right upper quadrant and epigastric pain associated with projectile vomiting. Denies any hematemesis. Denies any fever or chills. Reported his pain 8 out of 10. Squeezing/crampy. No other relieving or aggravating factors. Patient takes lisinopril at home for His blood pressure was unable to take his medications due to the nausea and vomiting. Blood pressure on arrival was 168/127. As patient was sent to [facility] in the past we tried to transfer him to [facility] as per doctor's Angela recommendation. Unfortunately [facility] did not think that they have anything to do differently as patient already has an appointment with human capital analyst Resuscitation Status VTE Prophylaxis Will order VTE Prophylaxis: Yes
[2017-05-30] MEDS ORDERED: FLUTICASONE/SALMETEROL 250/50 (ADVAIR) 14 PUFF/1 INHALER INH SCH (21:00)
[2017-05-30] MEDS: OXYCODONE HCL IR 5 MG TAB (IMMEDIATE RELEASE) PO PRN (21:04)
[2017-05-30] MEDS: FLUTICASONE/SALMETEROL 250/50 (ADVAIR) 14 PUFF/1 INHALER INH SCH (21:05)
[2017-05-30] MEDS: ALBUTEROL HFA 8 GM INHALER INH SCH (21:05)
[2017-05-30] MEDS: PANTOprazole INJ 40 MG in SYRINGE 0 ML IV SCH (21:06)
[2017-05-30] MEDS: METOPROLOL TARTRATE 25 MG TAB PO SCH (21:07)
[2017-05-30] MEDS: ENOXAPARIN 40 MG/0.4 ML SYR SQ SCH (22:00)
[2017-05-31] VITALS: BP 120/88; PULSE 95; TEMP 37.3; O2SAT 97
[2017-05-31] MEDS: OXYCODONE HCL IR 5 MG TAB (IMMEDIATE RELEASE) PO PRN ×3 (03:29→15:46)
[2017-05-31 06:32] LABS: BASO % 0.4 %; BASO ABS # 0.03 K/uL (0-0.2); EOS % 1.8 %; EOS ABS # 0.13 K/uL (0-0.5); HEMATOCRIT 35.7 % (42-52); HEMOGLOBIN 11.3 g/dL (14.0-18.0); IG# 0.02 K/uL (0.00-0.02); LYMPH % 28.1 %; LYMPH ABS # 1.99 K/uL (1.2-3.4); MEAN CELL VOLUME 87.1 fL (80-100); MEAN CORPUSCULAR HEMOGLOBIN 27.6 pg (25-34); MEAN CORPUSCULAR HGB CONC 31.7 g/dl (32-36); MEAN PLATELET VOLUME 9.3 fL (7.4-10.4); MONO % 9.6 %; MONO ABS # 0.68 K/uL (0.11-0.59); NEUT % 59.8 %; NEUT ABS # 4.23 K/uL (1.4-6.5); PLATELET COUNT 165 K/uL (130-400); RED CELL DISTRIBUTION WIDTH CV 15.1 % (11.5-14.5); RED CELL DISTRIBUTION WIDTH SD 47.9 fL (36.4-46.3); WHITE BLOOD COUNT 7.08 K/uL (4.8-10.8)
[2017-05-31 07:06] LABS: ALBUMIN 3.2 gm/dl (3.4-5.0); CALCIUM 8.5 mg/dl (8.5-10.1); CREATININE 1.11 mg/dl (0.60-1.40); POTASSIUM 3.5 mmol/L (3.5-5.1)
[2017-05-31 07:10] LABS: TOTAL PROTEIN 6.4 gm/dl (6.4-8.2)
[2017-05-31 07:21] VITALS: BP 120/74; PULSE 88; TEMP 36.8; O2SAT 95
[2017-05-31] MEDS: ALBUTEROL HFA 8 GM INHALER INH SCH ×2 (08:22→19:27)
[2017-05-31] MEDS: FLUTICASONE/SALMETEROL 250/50 (ADVAIR) 14 PUFF/1 INHALER INH SCH ×2 (08:22→19:27)
[2017-05-31] MEDS: METOPROLOL TARTRATE 25 MG TAB PO SCH ×2 (08:23→19:28)
[2017-05-31] MEDS: PANTOprazole INJ 40 MG in SYRINGE 0 ML IV SCH ×2 (08:24→19:27)
[2017-05-31] MEDS ORDERED: PANTOprazole SOD 40 MG TAB PO SCH (09:00)
[2017-05-31] MEDS ORDERED: HYDROmorphone INJ 2 MG/ML SYR/VIAL IV ONE (11:15)
--- NOTE | 2017-05-31 13:42 | Hospitalist Progress Note ---
Hospitalist Progress Note Date of Service May 31, 2017. Subjective Pt evaluation today including: conversation w/ patient, conversation w/ family (mother at bedside), physical exam, lab review, review of studies, conversation w/ information security consultant (Dr. Rodgers), review of inpatient medication list Voiding: no voiding problems Patient resting in bed. Complaining of 9/10 RUQ pain and nausea. States Oxycodone only works for a few hours and Dilaudid works best. Currently NPO. States he was told by [facility] at his last visit not to follow-up on the because "they have nothing else to offer and did everything." Patient denies any fever, chills, sweats, lightheadedness, dizziness, vision changes, CP, palpitations, edema, SOB, wheezing, cough, vomiting, diarrhea, urinary symptoms, melena, numbness/tingling, weakness, muscle/joint pain, anxiety/depression, active bleeding, or new skin discoloration/changes. Discussed w/ General surgery- no indication that symptoms are related to gallbladder. Going to discuss further w/ GI. Medications Current Inpatient Medications Medications (Trade) Dose Ordered Sig/Reena Route Start Time Stop Time Status Last Admin Dose Admin Albuterol (Ventolin Hfa Inhaler) 2 puffs BID INH 05/30/17 21:00 06/29/17 20:59 05/31/17 08:22 2 PUFFS Albuterol Sulfate (Ventolin 0.083% 2.5MG/3ML Neb) 2.5 mg Q4H PRN INH 05/30/17 18:00 06/29/17 17:59 Pantoprazole Sodium (Protonix Tab) 40 mg QAM PO 05/31/17 09:00 06/30/17 08:59 Future Hold Enoxaparin Sodium (Lovenox Inj) 40 mg QPM SQ 05/30/17 21:00 06/29/17 20:59 Al Hydrox/Mg Hydrox/Simethicone (Maalox Max Susp) 15 ml Q4H PRN PO 05/30/17 18:00 06/29/17 17:59 Magnesium Hydroxide (Milk Of Magnesia Susp) 30 ml Q6H PRN PO 05/30/17 18:00 06/29/17 17:59 Polyethylene (Miralax Powder Packet) 17 gm DAILY PRN PO 05/30/17 18:00 5/24/18 17:59 Zolpidem Tartrate (Ambien Tab) 5 mg HSZ PRN PO 05/30/17 18:00 06/29/17 17:59 Ondansetron HCl (Zofran Inj) 4 mg Q6H PRN IV 05/30/17 18:00 06/29/17 17:59 Zolpidem Tartrate (Ambien Tab) 5 mg HSZ PRN PO 05/30/17 18:00 06/29/17 17:59 Oxycodone HCl (Roxicodone Immediate Rel Tab) 5 mg Q6H PRN PO 05/30/17 18:00 06/13/17 17:59 05/31/17 09:46 5 MG Metoprolol Tartrate (Lopressor Tab) 25 mg BID PO 05/30/17 21:00 06/29/17 20:59 05/31/17 08:23 25 MG Hydralazine HCl (HydrALAZINE INJ) 15 mg Q6H PRN IV. 05/30/17 18:15 06/29/17 18:14 Pantoprazole Sodium 40 mg/ Syringe 10 ml @ 5 mls/min BID@0900,2100 IV 05/30/17 21:00 06/29/17 20:59 05/31/17 08:24 5 MLS/MIN Salmeterol Xinafoate/ Fluticasone (Advair Diskus 250/50 Inh) 1 puff BID INH 05/30/17 21:00 06/29/17 20:59 05/31/17 08:22 1 PUFF Vancomycin HCl 1500 mg/Sodium Chloride 530 ml @ 200 mls/hr Q8H IV 05/31/17 22:00 06/10/17 13:59 Miscellaneous Information (Consult) 1 ea UD PRN N/A 05/31/17 13:45 06/30/17 13:44 Vancomycin HCl 2500 mg/Sodium Chloride 550 ml @ 200 mls/hr TODAY@1400 ONCE IV 05/31/17 14:00 05/31/17 16:44 Objective Vital Signs Date Time Temp Pulse Resp B/P (MAP) Pulse Ox O2 Delivery O2 Flow Rate FiO2 05/31/17 08:00 Room Air 05/31/17 07:21 36.8 88 22 120/74 (89) 95 Room Air 05/31/17 00:40 Room Air 05/31/17 00:00 37.3 95 20 120/88 (99) 97 Room Air 05/30/17 19:15 36.7 99 16 111/78 (89) 91 Room Air 05/30/17 19:04 78 20 117/89 98 Room Air 05/30/17 18:46 95 143/107 91 05/30/17 18:43 Room Air 05/30/17 16:58 95 15 148/96 95 Room Air 05/30/17 16:46 92 123/103 05/30/17 14:48 97 18 151/109 95 Room Air 05/30/17 13:56 95 18 145/109 96 Physical Exam General Appearance: no apparent distress, + obese Eyes: normal inspection, PERRL ENT: hearing grossly normal Neck: supple Respiratory/Chest: lungs clear, no respiratory distress, no accessory muscle use Abdomen: normal bowel sounds, soft, + guarding, + tenderness (severe ttp of RUQ - barely touched w/ stethoscope and winced in pain) Extremities: no pedal edema, no calf tenderness Neurologic/Psychiatric: alert, normal mood/affect, oriented x 3 Skin: normal color, warm/dry, no rash Laboratory Results Last 24 Hours Test 05/30/17 17:58 05/30/17 20:24 05/31/17 06:04 Urine Color DK YELLOW Urine Appearance CLOUDY Urine pH 5.5 Urine Specific [place] 1.022 Urine Protein 1+ Urine Glucose (UA) NEG Urine Ketones NEG Urine Occult Blood TRACE Urine Nitrite POS Urine Bilirubin NEG Urine Urobilinogen NEG Urine Leukocyte Esterase MODERATE Urine WBC (Auto) >30 /hpf Urine RBC (Auto) 0-4 /hpf Urine Hyaline Casts (Auto) 1-5 /lpf Urine Epithelial Cells (Auto) 0-5 /lpf Urine Bacteria (Auto) 2+ Urine Yeast (Auto) Lipase 1217 U/L 635 U/L White Blood Count 7.08 K/uL Red Blood Count 4.10 M/uL Hemoglobin 11.3 g/dL Hematocrit 35.7 % Mean Corpuscular Volume 87.1 fL Mean Corpuscular Hemoglobin 27.6 pg Mean Corpuscular Hemoglobin Concent 31.7 g/dl Platelet Count 165 K/uL Mean Platelet Volume 9.3 fL Neutrophils (%) (Auto) 59.8 % Lymphocytes (%) (Auto) 28.1 % Monocytes (%) (Auto) 9.6 % Eosinophils (%) (Auto) 1.8 % Basophils (%) (Auto) 0.4 % Neutrophils # (Auto) 4.23 K/uL Lymphocytes # (Auto) 1.99 K/uL Monocytes # (Auto) 0.68 K/uL Eosinophils # (Auto) 0.13 K/uL Basophils # (Auto) 0.03 K/uL RDW Standard Deviation 47.9 fL RDW Coefficient of Variation 15.1 % Immature Granulocyte % (Auto) 0.3 % Immature Granulocyte # (Auto) 0.02 K/uL Sodium Level 133 mmol/L Potassium Level 3.5 mmol/L Chloride Level 97 mmol/L Carbon Dioxide Level 29 mmol/L Anion Gap 7.0 mmol/L Blood Urea Nitrogen 7 mg/dl Creatinine 1.11 mg/dl Est Creatinine Clear Calc Drug Dose 116.8 ml/min Estimated GFR () 99.9 Estimated GFR (Non- 86.2 BUN/Creatinine Ratio 6.5 Random Glucose 86 mg/dl Calcium Level 8.5 mg/dl Total Bilirubin 3.2 mg/dl Aspartate Amino Transf (AST/SGOT) 65 U/L Alanine Aminotransferase (ALT/SGPT) 61 U/L Alkaline Phosphatase 106 U/L Total Protein 6.4 gm/dl Albumin 3.2 gm/dl Globulin 3.2 gm/dl Albumin/Globulin Ratio 1.0 Assessment and Plan 52-year-old man with complicated past medical history, hypertension, asthma, posttraumatic stress disorder, bipolar disorder, renal stones, ADHD, history of bilateral pneumonia and history of bilateral pulmonary embolism 7 years ago . Presented with recurrent right upper quadrant pain/nausea vomiting and elevated liver enzymes. HTN urgency- STABLE: - Lisinopril stopped due research showing correlation w/ chronic hepatitis - Started Metoprolol 25 mg BID - IV Hydralazine PRN N/V, RUQ pain, recurrent idiopathic hepatitis, hepatic steatosis: - Elevated LFTs at admission- now trending downward - Lipase 1200 --> 600 - IV NSS @ 125 ml/hr while NPO - Oxycodone q6 hrs PRN for pain management - IV Zofran PRN for nausea - Toxicology screen pending - Has f/u w/ Back Filler Operator, Dr. Rucker on June 05 at 11:30 AM - General surgery consulted, appreciate recommendations- no surgical intervention - GI consulted, appreciate recommendations- check MRCP, ?transfer UTI POA: - UCx growing staph species- past records show CoNS - Start IV Vancomycin pending final UCx and sensitives Hypokalemia- RESOLVED: Continue to follow and replace PRN Hypomagnesium: Treated w/ IV Mag supplement- follow and replace PRN Asthma w/out exacerbation- STABLE: Continue home inhalers h/o posttraumatic stress syndrome , bipolar disorder, ADHD- noted h/o bilateral pulmonary embolism- noted GERD w/ esophagitis: Continue Protonix DVT prophylaxis: Lovenox SQ daily Code status: LEVEL I, FULL Dispo: From home- no discharge needs anticipated
[2017-05-31] MEDS ORDERED: VANCOMYCIN CONSULT ACTIVE PRN (13:45)
[2017-05-31] MEDS ORDERED: VANCOMYCIN IV 2,500 MG in SODIUM CHLORIDE 0.9% 500ML 500 ML IV ONE (14:00)
--- NOTE | 2017-05-31 14:16 | Pharmacy Progress Note ---
Pharmacy Antibiotic Consult Date of Service: May 31, 2017. Pharmacy Dosing Scope Pharmacy is consulted to initiate Vancomycin IV dosing therapy, order appropriate labs and adjust drug dose/frequency. Subjective The patient is a 32 year old male admitted on May 30, 2017 at 18:01. Objective Height (Feet): 6 Height (Inches): 1.00 Weight (Kilograms): 100.400 Lab Results (24hrs): Test 05/30/17 17:58 05/30/17 20:24 05/31/17 06:04 Urine Color DK YELLOW Urine Appearance CLOUDY (CLEAR) Urine pH 5.5 (4.5-7.5) Urine Specific [place] 1.022 (1.000-1.030) Urine Protein 1+ (NEG) Urine Glucose (UA) NEG (NEG) Urine Ketones NEG (NEG) Urine Occult Blood TRACE (NEG) Urine Nitrite POS (NEG) Urine Bilirubin NEG (NEG) Urine Urobilinogen NEG (NEG) Urine Leukocyte Esterase MODERATE (NEG) Urine WBC (Auto) >30 /hpf (0-5) Urine RBC (Auto) 0-4 /hpf (0-4) Urine Hyaline Casts (Auto) 1-5 /lpf (0-5) Urine Epithelial Cells (Auto) 0-5 /lpf (0-5) Urine Bacteria (Auto) 2+ (NEG) Urine Yeast (Auto) (NONE PRSENT) Lipase 1217 U/L (73-393) 635 U/L (73-393) White Blood Count 7.08 K/uL (4.8-10.8) Red Blood Count 4.10 M/uL (4.7-6.1) Hemoglobin 11.3 g/dL (14.0-18.0) Hematocrit 35.7 % (42-52) Mean Corpuscular Volume 87.1 fL (80-100) Mean Corpuscular Hemoglobin 27.6 pg (25-34) Mean Corpuscular Hemoglobin Concent 31.7 g/dl (32-36) Platelet Count 165 K/uL (130-400) Mean Platelet Volume 9.3 fL (7.4-10.4) Neutrophils (%) (Auto) 59.8 % Lymphocytes (%) (Auto) 28.1 % Monocytes (%) (Auto) 9.6 % Eosinophils (%) (Auto) 1.8 % Basophils (%) (Auto) 0.4 % Neutrophils # (Auto) 4.23 K/uL (1.4-6.5) Lymphocytes # (Auto) 1.99 K/uL (1.2-3.4) Monocytes # (Auto) 0.68 K/uL (0.11-0.59) Eosinophils # (Auto) 0.13 K/uL (0-0.5) Basophils # (Auto) 0.03 K/uL (0-0.2) RDW Standard Deviation 47.9 fL (36.4-46.3) RDW Coefficient of Variation 15.1 % (11.5-14.5) Immature Granulocyte % (Auto) 0.3 % Immature Granulocyte # (Auto) 0.02 K/uL (0.00-0.02) Sodium Level 133 mmol/L (136-145) Potassium Level 3.5 mmol/L (3.5-5.1) Chloride Level 97 mmol/L (98-107) Carbon Dioxide Level 29 mmol/L (21-32) Anion Gap 7.0 mmol/L (3-11) Blood Urea Nitrogen 7 mg/dl (7-18) Creatinine 1.11 mg/dl (0.60-1.40) Est Creatinine Clear Calc Drug Dose 116.8 ml/min Estimated GFR () 99.9 Estimated GFR (Non- 86.2 BUN/Creatinine Ratio 6.5 (10-20) Random Glucose 86 mg/dl (70-99) Calcium Level 8.5 mg/dl (8.5-10.1) Total Bilirubin 3.2 mg/dl (0.2-1) Aspartate Amino Transf (AST/SGOT) 65 U/L (15-37) Alanine Aminotransferase (ALT/SGPT) 61 U/L (12-78) Alkaline Phosphatase 106 U/L (45-117) Total Protein 6.4 gm/dl (6.4-8.2) Albumin 3.2 gm/dl (3.4-5.0) Globulin 3.2 gm/dl (2.5-4.0) Albumin/Globulin Ratio 1.0 (0.9-2) Assessment & Plan Assessment Pharmacy consulted by Anita Mayorga to dose vancomycin for complicated UTI. * Pt was recently admitted in Feb and April 2017. In april he was transferred to [facility]. * Urine culture growing staph species. * Baseline Scr~0.8 * PMH: asthma, Hepatitis, history of b/l PE, PTSD, bipolar disorder Plan Vancomycin * Loading dose: 2500 mg (25mg/kg) IV X 1 dose then: * 1500 mg (15mg/kg) IV every 8 hours. * Goal trough level for UTI: ~15mcg/mL * Trough level ordered for 06/01 @2130 Pharmacy will continue to follow and will adjust dose/frequency as necessary. Thank you
--- NOTE | 2017-05-31 14:46 | Surgery Consultation ---
Consultation Date of Consultation: May 31, 2017. Attending Physician: Bala Mayers MD, PhD Reason for Consultation: RUQ abdominal pain, elevated LFTS (Therese Yao PA-C) History of Present Illness Tip is a 32 year-old male who presented to the emergency room with chronic RUQ abdominal pain, nausea, and vomiting. Tip has been admitted to [facility] 3 times since December of 2016. Tip states his problems started in December. States he started having projectile vomiting and then started having RUQ abdominal pain. Had an EGD in December which showed biopsies proving esophagitis however no other abnormalities. During his admissions here at [facility] he has had a few CT scans, HIDA scans, and ultrasounds which have showed no evidence of gallstones, gallbladder wall thickening, or signs of gallbladder etiology for his RUQ pain and symptoms. Last admission in February he was found to have elevated t. bili at 7.0 and was transferred to [facility] for further evaluation and management. States they did not do anything different at [facility] and told him that him being transferred there was a waste of his time and money. Since discharge from [facility] he is still complaining of chronic RUQ pain with episodes of sharp stabbing pain. Nausea and vomiting occurs frequently. Eating a bland diet, mostly grilled tilapia and vegetables. No fatty/greasy foods. Emergency room work up included gallbladder US which showed no stones and normal gallbladder with hepatomegaly consistent with fatty change. Labs showed no leukocytosis. LFTS elevated: AST-160 , ALT-90, Alk Phos-131. T. bili at 1.2. Lipase 120 but bumped to 1217. Todays labs: AST-65 ALT-61 ALk Phos-106 Lipase- 635 (Therese Yao PA-C) Past Medical/Surgical History Medical Problems: (1) Bilateral pneumonia causing sepsis and organ failure (2) Bilateral pulmonary embolism (3) Chronic RUQ abdominal pain (4) Asthma (5) Steatosis (6) Hepatomegaly (7) Elevated liver enzymes Past Surgical History: 1. Open appendectomy 2. Left shoulder surgery 3. Left elbow repair 4. Right knee arthroscopy (Therese Yao PA-C) Family History Asthma Cancer Diabetes mellitus FH: heart disease FHx: lung disease Hypertension Kidney disease Kidney stones Stroke (Therese Yao PA-C) Asthma Cancer Diabetes mellitus FH: heart disease FHx: lung disease Hypertension Kidney disease Kidney stones Stroke (Derik Rodgers M.D.) Social History Smoking Status: Never Smoker Drug Use: none Marital Status: single Housing Status: lives with family Occupation Status: unemployed (Therese Yao PA-C) Allergies Coded Allergies: Lactose Intolerance (GI) (Verified Allergy, Intermediate, abdomainal cramps, diarrhea, 05/30/17) Mold (Blue) Cheese (Verified Allergy, Intermediate, rash, 05/30/17) Penicillins (Verified Allergy, Intermediate, ITCHY BLOTCHES, 05/30/17) Amitriptyline (Verified Allergy, Unknown, chest tightness difficulty breathing unable to function, 05/30/17) Naproxen (Verified Allergy, Unknown, ITCHY, 05/30/17) Red Dye (Verified Allergy, Unknown, HIVES, 05/30/17) Home Medications Scheduled Albuterol Hfa (Ventolin Hfa), 2-4 PUFFS INH BID Albuterol Sulf (Proventil 0.083% 2.5MG/3ML), 2.5 MG INH PRN Fluticasone Prop/Salmeterol (Advair Diskus 250/50 60 Dose), 1 PUFF INH BID Lisinopril (Lisinopril), 10 MG PO QAM Pantoprazole (Protonix), 40 MG PO QAM Current Inpatient Medications Current Inpatient Medications Medications (Trade) Dose Ordered Sig/Reena Route Start Time Stop Time Status Last Admin Dose Admin Albuterol (Ventolin Hfa Inhaler) 2 puffs BID INH 05/30/17 21:00 06/29/17 20:59 05/31/17 08:22 2 PUFFS Albuterol Sulfate (Ventolin 0.083% 2.5MG/3ML Neb) 2.5 mg Q4H PRN INH 05/30/17 18:00 06/29/17 17:59 Pantoprazole Sodium (Protonix Tab) 40 mg QAM PO 05/31/17 09:00 06/30/17 08:59 Future Hold Enoxaparin Sodium (Lovenox Inj) 40 mg QPM SQ 05/30/17 21:00 06/29/17 20:59 Al Hydrox/Mg Hydrox/Simethicone (Maalox Max Susp) 15 ml Q4H PRN PO 05/30/17 18:00 06/29/17 17:59 Magnesium Hydroxide (Milk Of Magnesia Susp) 30 ml Q6H PRN PO 05/30/17 18:00 06/29/17 17:59 Polyethylene (Miralax Powder Packet) 17 gm DAILY PRN PO 05/30/17 18:00 06/29/17 17:59 Zolpidem Tartrate (Ambien Tab) 5 mg HSZ PRN PO 05/30/17 18:00 06/29/17 17:59 Ondansetron HCl (Zofran Inj) 4 mg Q6H PRN IV 05/30/17 18:00 06/29/17 17:59 Zolpidem Tartrate (Ambien Tab) 5 mg HSZ PRN PO 05/30/17 18:00 06/29/17 17:59 Oxycodone HCl (Roxicodone Immediate Rel Tab) 5 mg Q6H PRN PO 05/30/17 18:00 06/13/17 17:59 05/31/17 09:46 5 MG Metoprolol Tartrate (Lopressor Tab) 25 mg BID PO 05/30/17 21:00 06/29/17 20:59 05/31/17 08:23 25 MG Hydralazine HCl (HydrALAZINE INJ) 15 mg Q6H PRN IV. 05/30/17 18:15 06/29/17 18:14 Pantoprazole Sodium 40 mg/ Syringe 10 ml @ 5 mls/min BID@0900,2100 IV 05/30/17 21:00 06/29/17 20:59 05/31/17 08:24 5 MLS/MIN Salmeterol Xinafoate/ Fluticasone (Advair Diskus 250/50 Inh) 1 puff BID INH 05/30/17 21:00 06/29/17 20:59 05/31/17 08:22 1 PUFF (Therese Yao ., MAVIS) Review of Systems Constitutional: No fever, No chills Respiratory: No cough, No shortness of breath Cardiovascular: No chest pain Abdomen: + pain, + nausea, + vomiting, No diarrhea, No constipation, No GI bleeding Genitourinary - Male: No hematuria Hematologic / Lymphatic: No abnormal bleeding/bruising Integumentary: No rash, No new/changing skin lesions, No color change (Therese Yao PA-C) Physical Exam Date Time Temp Pulse Resp B/P (MAP) Pulse Ox O2 Delivery O2 Flow Rate FiO2 05/31/17 08:00 Room Air 05/31/17 07:21 36.8 88 22 120/74 (89) 95 Room Air 05/31/17 00:40 Room Air 05/31/17 00:00 37.3 95 20 120/88 (99) 97 Room Air 05/30/17 19:15 36.7 99 16 111/78 (89) 91 Room Air 05/30/17 19:04 78 20 117/89 98 Room Air 05/30/17 18:46 95 143/107 91 05/30/17 18:43 Room Air 05/30/17 16:58 95 15 148/96 95 Room Air 05/30/17 16:46 92 123/103 05/30/17 14:48 97 18 151/109 95 Room Air 05/30/17 13:56 95 18 145/109 96 05/30/17 13:25 94 18 147/109 93 Room Air 05/30/17 13:03 98 18 148/122 96 Room Air 05/30/17 12:51 103 18 150/107 93 Room Air 05/30/17 11:58 108 18 168/127 96 Room Air General Appearance: WD/WN, + mild distress Head: normocephalic, atraumatic Eyes: sclerae normal ENT: hearing grossly normal Neck: trachea midline Respiratory/Chest: lungs clear, normal breath sounds, no respiratory distress, no accessory muscle use Cardiovascular: regular rate, rhythm, no murmur Abdomen/GI: soft, no pulsatile mass, + tenderness (RUQ just with auscultation with stethoscope), + guarding (RUQ), + rebound (RUQ), + pertinent finding ( unable to assess for hepatomegaly as pt is extremely tender to palpation in the RUQ) Back: normal inspection Extremities/Musculoskelatal: normal inspection, no pedal edema Neurologic/Psych: alert, normal mood/affect, oriented x 3 Skin: normal color, warm/dry, no rash (Therese Yao PA-C) Laboratory Results Last 24 Hours Test 05/30/17 17:58 05/30/17 20:24 05/31/17 06:04 Urine Color DK YELLOW Urine Appearance CLOUDY Urine pH 5.5 Urine Specific [place] 1.022 Urine Protein 1+ Urine Glucose (UA) NEG Urine Ketones NEG Urine Occult Blood TRACE Urine Nitrite POS Urine Bilirubin NEG Urine Urobilinogen NEG Urine Leukocyte Esterase MODERATE Urine WBC (Auto) >30 /hpf Urine RBC (Auto) 0-4 /hpf Urine Hyaline Casts (Auto) 1-5 /lpf Urine Epithelial Cells (Auto) 0-5 /lpf Urine Bacteria (Auto) 2+ Urine Yeast (Auto) Lipase 1217 U/L 635 U/L White Blood Count 7.08 K/uL Red Blood Count 4.10 M/uL Hemoglobin 11.3 g/dL Hematocrit 35.7 % Mean Corpuscular Volume 87.1 fL Mean Corpuscular Hemoglobin 27.6 pg Mean Corpuscular Hemoglobin Concent 31.7 g/dl Platelet Count 165 K/uL Mean Platelet Volume 9.3 fL Neutrophils (%) (Auto) 59.8 % Lymphocytes (%) (Auto) 28.1 % Monocytes (%) (Auto) 9.6 % Eosinophils (%) (Auto) 1.8 % Basophils (%) (Auto) 0.4 % Neutrophils # (Auto) 4.23 K/uL Lymphocytes # (Auto) 1.99 K/uL Monocytes # (Auto) 0.68 K/uL Eosinophils # (Auto) 0.13 K/uL Basophils # (Auto) 0.03 K/uL RDW Standard Deviation 47.9 fL RDW Coefficient of Variation 15.1 % Immature Granulocyte % (Auto) 0.3 % Immature Granulocyte # (Auto) 0.02 K/uL Sodium Level 133 mmol/L Potassium Level 3.5 mmol/L Chloride Level 97 mmol/L Carbon Dioxide Level 29 mmol/L Anion Gap 7.0 mmol/L Blood Urea Nitrogen 7 mg/dl Creatinine 1.11 mg/dl Est Creatinine Clear Calc Drug Dose 116.8 ml/min Estimated GFR () 99.9 Estimated GFR (Non- 86.2 BUN/Creatinine Ratio 6.5 Random Glucose 86 mg/dl Calcium Level 8.5 mg/dl Total Bilirubin 3.2 mg/dl Aspartate Amino Transf (AST/SGOT) 65 U/L Alanine Aminotransferase (ALT/SGPT) 61 U/L Alkaline Phosphatase 106 U/L Total Protein 6.4 gm/dl Albumin 3.2 gm/dl Globulin 3.2 gm/dl Albumin/Globulin Ratio 1.0 [~ rep ct add3]] ABDOMINAL ULTRASOUND, RIGHT UPPER QUADRANT HISTORY: Generalized abdominal pain.. COMPARISON: Abdomen and pelvis CT 04/27/2017. FINDINGS: Pancreas: The pancreatic head and tail are obscured by overlying bowel gas. The remaining portions of the pancreas are within normal limits. Liver: The liver is echogenic consistent with fatty change. 21 cm in length. The hepatic lesion seen on the prior abdomen and pelvis CT is not identified on this study. Gallbladder: No gallbladder wall thickening. No gallstones. CBD: Difficult to visualize due to the patency steatosis but likely measures 6 mm. Right kidney: No hydronephrosis. IMPRESSION: 1. Hepatomegaly demonstrating fatty change. 2. Normal gallbladder. No gallstones. 3. The pancreas was not well visualized. (Therese Yao ., PA-C) Assessment & Plan 32 year-old male with chronic RUQ abdominal pain, projectile nausea and vomiting since December 2016 presented to emergency room with increasing RUQ abdominal pain, nausea, and vomiting. Extensive work-up at this institution on three previous admissions including ct scan of abd/pelvis, multiple gallbladder ultrasounds, MRCPs, HIDA scans and US guidance liver biopsy proved no evidence of cholecystitis, cholelithiasis, choledocholithiasis as the cause of elevated LFTs and patients RUQ abdominal pain. Liver biopsy showed steatosis however no other findings. This admission LFTS again elevated, have improved to within normal limits today. Total bilirubin has however increased to 3.2 today (1.2 yesterday) Lipase elevated at 1217 yesterday and 635 today. Assessment: 1. Chronic RUQ abdominal pain 2. Steatosis 3. Hepatomegaly 4. elevated LFTs Differential Diagnosis: Sphincter of Oddi dysfunction, Hepatomegaly causing stretch on Dian Capsule Plan: Dr. Rodgers has discussed case with Dr. Mcdaniels. Did not recommend ERCP as there are associated risks with ERCP and no true diagnosis of biliary obstruction. Dr. Rodgers had long discussion with patient and his mother in regards to his chronic symptoms of RUQ abdominal pain and nausea and vomiting and no findings on multiple imaging studies and tests relating his symptoms to be gallbladder etiology. Discussed that cholecystectomy as a diagnostic procedure to see if his symptoms improve is not in the best interest of the patient as there are risks associated with the procedure and there is no true indication for cholecystectomy. Patient has follow-up with track inspector June 05. continue current medical management, pain management, iv fluids. Will await further recommendations from Dr. Enedelia Rodgers has seen and examined patient, agrees with above. (Therese Yao ., MAVIS) I have interviewed this patient and examined him. I reviewed his radiology images and reports as well as the laboratory studies and I agree with the above note. This patient has right upper quadrant pain with significant tenderness. This is unchanged from previous evaluations. He is undergone multiple ultrasounds of the right upper quadrant as well as multiple HIDA scans and CT scans. He has had an MRCP. None of these reveal any issue with the gallbladder. There is question as to whether or not there was sludge on 1 of those studies but that is not available to me. The most recent ultrasound shows no abnormalities. He has an enlarged liver. He was to be seen at [facility] with the hepatology department. Recommendation was made to transfer him to [facility] but they did not feel that it was necessary to except him. He has many reasons for the right upper quadrant pain including enlarged liver with significant steatosis. There are no abnormal findings associated with the gallbladder. The patient's mother was present in the room during our discussion. I explained that there is at this time no indication for cholecystectomy. I explained that I do not feel that there will be symptom relief with that procedure. Considering his other medical problems and enlarged liver that can be additional complications with the procedure and I do not feel that the benefit of cholecystectomy would outweigh the possible complications especially considering there been no abnormal radiologic findings and he has other reasons for the discomfort. (Derik Rodgers M.D.)
--- NOTE | 2017-05-31 14:48 | Gastroenterology Progress Note ---
Progress Note Date of Service: May 31, 2017 Subjective Pt evaluation today including: conversation w/ patient, conversation w/ family (mother), physical exam, chart review, lab review, review of studies, review of inpatient medication list cc f/u abd pain, n/v HPI Pt states abd pain the same. Somewhat less nausea. Review of Systems Respiratory: No shortness of breath Cardiac: No chest pain Medications Current Inpatient Medications Medications (Trade) Dose Ordered Sig/Reena Route Start Time Stop Time Status Last Admin Dose Admin Albuterol (Ventolin Hfa Inhaler) 2 puffs BID INH 05/30/17 21:00 06/29/17 20:59 05/31/17 08:22 2 PUFFS Albuterol Sulfate (Ventolin 0.083% 2.5MG/3ML Neb) 2.5 mg Q4H PRN INH 05/30/17 18:00 06/29/17 17:59 Pantoprazole Sodium (Protonix Tab) 40 mg QAM PO 05/31/17 09:00 06/30/17 08:59 Future Hold Enoxaparin Sodium (Lovenox Inj) 40 mg QPM SQ 05/30/17 21:00 06/29/17 20:59 Al Hydrox/Mg Hydrox/Simethicone (Maalox Max Susp) 15 ml Q4H PRN PO 05/30/17 18:00 06/29/17 17:59 Magnesium Hydroxide (Milk Of Magnesia Susp) 30 ml Q6H PRN PO 05/30/17 18:00 06/29/17 17:59 Polyethylene (Miralax Powder Packet) 17 gm DAILY PRN PO 05/30/17 18:00 06/29/17 17:59 Zolpidem Tartrate (Ambien Tab) 5 mg HSZ PRN PO 05/30/17 18:00 06/29/17 17:59 Ondansetron HCl (Zofran Inj) 4 mg Q6H PRN IV 05/30/17 18:00 06/29/17 17:59 Zolpidem Tartrate (Ambien Tab) 5 mg HSZ PRN PO 05/30/17 18:00 06/29/17 17:59 Oxycodone HCl (Roxicodone Immediate Rel Tab) 5 mg Q6H PRN PO 05/30/17 18:00 06/13/17 17:59 05/31/17 09:46 5 MG Metoprolol Tartrate (Lopressor Tab) 25 mg BID PO 05/30/17 21:00 06/29/17 20:59 05/31/17 08:23 25 MG Hydralazine HCl (HydrALAZINE INJ) 15 mg Q6H PRN IV. 05/30/17 18:15 06/29/17 18:14 Pantoprazole Sodium 40 mg/ Syringe 10 ml @ 5 mls/min BID@0900,2100 IV 05/30/17 21:00 06/29/17 20:59 05/31/17 08:24 5 MLS/MIN Salmeterol Xinafoate/ Fluticasone (Advair Diskus 250/50 Inh) 1 puff BID INH 05/30/17 21:00 06/29/17 20:59 05/31/17 08:22 1 PUFF Vancomycin HCl 1500 mg/Sodium Chloride 530 ml @ 200 mls/hr Q8H IV 05/31/17 22:00 06/10/17 13:59 Miscellaneous Information (Consult) 1 ea UD PRN N/A 05/31/17 13:45 06/30/17 13:44 Vancomycin HCl 2500 mg/Sodium Chloride 550 ml @ 200 mls/hr TODAY@1400 ONCE IV 05/31/17 14:00 05/31/17 16:44 05/31/17 14:13 200 MLS/HR Sodium Chloride 1,000 ml @ 125 mls/hr Q8H IV 05/31/17 14:30 06/30/17 14:29 Objective Vital Signs Date Time Temp Pulse Resp B/P (MAP) Pulse Ox O2 Delivery O2 Flow Rate FiO2 05/31/17 08:00 Room Air 05/31/17 07:21 36.8 88 22 120/74 (89) 95 Room Air 05/31/17 00:40 Room Air 05/31/17 00:00 37.3 95 20 120/88 (99) 97 Room Air 05/30/17 19:15 36.7 99 16 111/78 (89) 91 Room Air 05/30/17 19:04 78 20 117/89 98 Room Air 05/30/17 18:46 95 143/107 91 05/30/17 18:43 Room Air 05/30/17 16:58 95 15 148/96 95 Room Air 05/30/17 16:46 92 123/103 05/30/17 14:48 97 18 151/109 95 Room Air Physical Exam General Appearance: WD/WN, no apparent distress Respiratory/Chest: lungs clear, no respiratory distress Cardiovascular: regular rate, rhythm, no edema Abdomen: normal bowel sounds, soft, no organomegaly, + guarding (guarding RUQ but no rebound) Neurologic/Psych: alert, normal mood/affect, oriented x 3 Skin: warm/dry Laboratory Results Last 24 Hours Test 05/30/17 17:58 05/30/17 20:24 05/31/17 06:04 Urine Color DK YELLOW Urine Appearance CLOUDY Urine pH 5.5 Urine Specific [place] 1.022 Urine Protein 1+ Urine Glucose (UA) NEG Urine Ketones NEG Urine Occult Blood TRACE Urine Nitrite POS Urine Bilirubin NEG Urine Urobilinogen NEG Urine Leukocyte Esterase MODERATE Urine WBC (Auto) >30 /hpf Urine RBC (Auto) 0-4 /hpf Urine Hyaline Casts (Auto) 1-5 /lpf Urine Epithelial Cells (Auto) 0-5 /lpf Urine Bacteria (Auto) 2+ Urine Yeast (Auto) Lipase 1217 U/L 635 U/L White Blood Count 7.08 K/uL Red Blood Count 4.10 M/uL Hemoglobin 11.3 g/dL Hematocrit 35.7 % Mean Corpuscular Volume 87.1 fL Mean Corpuscular Hemoglobin 27.6 pg Mean Corpuscular Hemoglobin Concent 31.7 g/dl Platelet Count 165 K/uL Mean Platelet Volume 9.3 fL Neutrophils (%) (Auto) 59.8 % Lymphocytes (%) (Auto) 28.1 % Monocytes (%) (Auto) 9.6 % Eosinophils (%) (Auto) 1.8 % Basophils (%) (Auto) 0.4 % Neutrophils # (Auto) 4.23 K/uL Lymphocytes # (Auto) 1.99 K/uL Monocytes # (Auto) 0.68 K/uL Eosinophils # (Auto) 0.13 K/uL Basophils # (Auto) 0.03 K/uL RDW Standard Deviation 47.9 fL RDW Coefficient of Variation 15.1 % Immature Granulocyte % (Auto) 0.3 % Immature Granulocyte # (Auto) 0.02 K/uL Sodium Level 133 mmol/L Potassium Level 3.5 mmol/L Chloride Level 97 mmol/L Carbon Dioxide Level 29 mmol/L Anion Gap 7.0 mmol/L Blood Urea Nitrogen 7 mg/dl Creatinine 1.11 mg/dl Est Creatinine Clear Calc Drug Dose 116.8 ml/min Estimated GFR () 99.9 Estimated GFR (Non- 86.2 BUN/Creatinine Ratio 6.5 Random Glucose 86 mg/dl Calcium Level 8.5 mg/dl Total Bilirubin 3.2 mg/dl Aspartate Amino Transf (AST/SGOT) 65 U/L Alanine Aminotransferase (ALT/SGPT) 61 U/L Alkaline Phosphatase 106 U/L Total Protein 6.4 gm/dl Albumin 3.2 gm/dl Globulin 3.2 gm/dl Albumin/Globulin Ratio 1.0 Assessment and Plan severe fatty liver--unclear etiiology elevated lipase-- elevated LFTS--worse recurrent RUQ pain--unclear etiology hepatomegaly--secondary to severe fatty liver n/v--unclear etiology GB sludge R hepatic lesion 12 mm first noted on CT 03/08/1718 grade B esophagitis--PPI Lipase on admit negative then markedly elevated last night with improvement this am. Check MRCP because of elevated lipase to look for any bile duct issue not present before. Per my discussion with Dr Rodgers, he does not feel strong enough indication to remove GB. I discussed with patient that if he is still interested in being transferred to [facility] in [place] to call his [facility] insurance rep and tell them he wants to go there and they did not accept him when called--perhaps they can intervene.
[2017-05-31 14:50] VITALS: BP_SYST 124; BP_SYST 93; BP_DIAS 51; BP_DIAS 88; PULSE 59; PULSE 89; TEMP 36.7; TEMP 36.8; O2SAT 92; O2SAT 95
[2017-05-31 16:03] VITALS: O2SAT 92
--- NOTE | 2017-05-31 17:04 | DIAGNOSTIC IMAGING REPORT ---
MRCP CLINICAL HISTORY: Right upper quadrant pain, elevated liver function tests and elevated lipase. COMPARISON STUDY: MRCP March 09, 2017, CT of the abdomen and pelvis April 27, 2017 and right upper quadrant ultrasound May 30, 2017. TECHNIQUE: Utilizing a 1.5 Rosio magnet and dedicated coil, multiplanar, multi echo imaging of the upper abdomen was performed utilizing heavily T2 weighted pulsing sequences. No intravenous contrast was administered. FINDINGS: No intra or extrahepatic biliary ductal dilatation is noted. The liver is moderately enlarged. Fatty infiltration is better depicted on previous ultrasound and CT. Spleen is normal in size. A 1.2 cm T2 hyperintense right hepatic lobe lesion is unchanged since CT of April 14, 2016. This is likely benign given stability. No additional hepatic lesions are present. No gallstones are identified within the gallbladder. There is no peripancreatic or pericholecystic infiltration. The course and caliber of the main pancreatic duct is normal. No abdominal lymphadenopathy or ascites is present. Unenhanced images of the adrenal glands and kidneys are unremarkable. No common bile duct calculi are identified. IMPRESSION: 1. No intra or extrahepatic biliary ductal dilatation. No choledocholithiasis or cholelithiasis identified. 2. Hepatomegaly and severe fatty infiltration of the liver. 3. Stable 1.2 cm right hepatic lobe lesion which is likely benign Electronically signed by: Jose C De Jesus M.D. 05/31/2017 5:03 PM Dictated Date/Time: 05/31/2017 4:56 PM
[2017-05-31] MEDS: SODIUM CHLORIDE 0.9% 1000ML 1,000 ML IV SCH (18:12)
[2017-05-31] MEDS ORDERED: NURSING VERBAL MED ORDER ONE (18:45)
[2017-05-31] MEDS ORDERED: OXYCODONE HCL IR 5 MG TAB (IMMEDIATE RELEASE) PO ONE (19:00)
[2017-05-31] MEDS: ENOXAPARIN 40 MG/0.4 ML SYR SQ SCH (19:27)
[2017-05-31] MEDS: VANCOMYCIN IV 1,500 MG in SODIUM CHLORIDE 0.9% 500ML 500 ML IV SCH (22:00)
[2017-05-31 23:06] VITALS: BP 124/87; PULSE 87; TEMP 36.8; O2SAT 94
[2017-06-01] MEDS: OXYCODONE HCL IR 5 MG TAB (IMMEDIATE RELEASE) PO PRN ×3 (00:24→12:17)
[2017-06-01] MEDS: SODIUM CHLORIDE 0.9% 1000ML 1,000 ML IV SCH ×2 (04:38→07:53)
[2017-06-01] MEDS: VANCOMYCIN IV 1,500 MG in SODIUM CHLORIDE 0.9% 500ML 500 ML IV SCH ×2 (06:11→13:27)
[2017-06-01] MEDS: METOPROLOL TARTRATE 25 MG TAB PO SCH (07:53)
[2017-06-01] MEDS: PANTOprazole INJ 40 MG in SYRINGE 0 ML IV SCH (07:53)
[2017-06-01] MEDS: FLUTICASONE/SALMETEROL 250/50 (ADVAIR) 14 PUFF/1 INHALER INH SCH (07:55)
[2017-06-01] MEDS: ALBUTEROL HFA 8 GM INHALER INH SCH (07:55)
[2017-06-01 07:56] VITALS: BP 127/88; PULSE 94; TEMP 36.6; O2SAT 94
[2017-06-01 08:18] LABS: BASO % 0.2 %; BASO ABS # 0.01 K/uL (0-0.2); EOS % 3.1 %; EOS ABS # 0.13 K/uL (0-0.5); HEMATOCRIT 32.1 % (42-52); HEMOGLOBIN 10.1 g/dL (14.0-18.0); IG# 0.01 K/uL (0.00-0.02); LYMPH % 37.4 %; LYMPH ABS # 1.57 K/uL (1.2-3.4); MEAN CELL VOLUME 87.5 fL (80-100); MEAN CORPUSCULAR HEMOGLOBIN 27.5 pg (25-34); MEAN CORPUSCULAR HGB CONC 31.5 g/dl (32-36); MEAN PLATELET VOLUME 9.4 fL (7.4-10.4); MONO % 8.3 %; MONO ABS # 0.35 K/uL (0.11-0.59); NEUT % 50.8 %; NEUT ABS # 2.13 K/uL (1.4-6.5); PLATELET COUNT 130 K/uL (130-400); RED CELL DISTRIBUTION WIDTH CV 15.1 % (11.5-14.5); RED CELL DISTRIBUTION WIDTH SD 47.9 fL (36.4-46.3)
[2017-06-01 09:02] LABS: ALBUMIN 2.8 gm/dl (3.4-5.0); CREATININE 0.73 mg/dl (0.60-1.40); POTASSIUM 3.6 mmol/L (3.5-5.1); TOTAL PROTEIN 5.8 gm/dl (6.4-8.2)
--- NOTE | 2017-06-01 09:36 | Surgery Progress Note ---
Surgery Progress Note Date of Service Jun 01, 2017. Subjective No vomiting Pain unchanged Objective Vital Signs: Date Time Temp Pulse Resp B/P (MAP) Pulse Ox O2 Delivery O2 Flow Rate FiO2 06/01/17 08:00 Room Air 06/01/17 07:56 36.6 94 18 127/88 (101) 94 Room Air 06/01/17 00:00 Room Air 05/31/17 23:06 36.8 87 18 124/87 (99) 94 Room Air 05/31/17 16:03 92 Room Air 05/31/17 14:50 36.7 89 20 124/88 (100) 92 Room Air Laboratory Results: Results Past 24 Hours Test 05/31/17 16:20 06/01/17 07:59 Range/Units Urine Opiates Screen POS NEG Urine Methadone, Qualitative NEG NEG Urine Barbiturates NEG NEG Urine Phencyclidine (PCP) Level NEG NEG Ur Amphetamine/Methamphetamine NEG NEG MDMA (Ecstasy) Screen NEG NEG Urine Benzodiazepines Screen NEG NEG Urine Cocaine Metabolite NEG NEG Urine Marijuana (THC) NEG NEG White Blood Count 4.20 4.8-10.8 K/uL Red Blood Count 3.67 4.7-6.1 M/uL Hemoglobin 10.1 14.0-18.0 g/dL Hematocrit 32.1 42-52 % Mean Corpuscular Volume 87.5 80-100 fL Mean Corpuscular Hemoglobin 27.5 25-34 pg Mean Corpuscular Hemoglobin Concent 31.5 32-36 g/dl Platelet Count 130 130-400 K/uL Mean Platelet Volume 9.4 7.4-10.4 fL Neutrophils (%) (Auto) 50.8 % Lymphocytes (%) (Auto) 37.4 % Monocytes (%) (Auto) 8.3 % Eosinophils (%) (Auto) 3.1 % Basophils (%) (Auto) 0.2 % Neutrophils # (Auto) 2.13 1.4-6.5 K/uL Lymphocytes # (Auto) 1.57 1.2-3.4 K/uL Monocytes # (Auto) 0.35 0.11-0.59 K/uL Eosinophils # (Auto) 0.13 0-0.5 K/uL Basophils # (Auto) 0.01 0-0.2 K/uL RDW Standard Deviation 47.9 36.4-46.3 fL RDW Coefficient of Variation 15.1 11.5-14.5 % Immature Granulocyte % (Auto) 0.2 % Immature Granulocyte # (Auto) 0.01 0.00-0.02 K/uL Sodium Level 140 136-145 mmol/L Potassium Level 3.6 3.5-5.1 mmol/L Chloride Level 107 98-107 mmol/L Carbon Dioxide Level 22 21-32 mmol/L Anion Gap 11.0 3-11 mmol/L Blood Urea Nitrogen 5 7-18 mg/dl Creatinine 0.73 0.60-1.40 mg/dl Est Creatinine Clear Calc Drug Dose 177.7 ml/min Estimated GFR () 140.3 Estimated GFR (Non- 121.0 BUN/Creatinine Ratio 6.4 10-20 Random Glucose 63 70-99 mg/dl Calcium Level 8.0 8.5-10.1 mg/dl Total Bilirubin 2.4 0.2-1 mg/dl Aspartate Amino Transf (AST/SGOT) 35 15-37 U/L Alanine Aminotransferase (ALT/SGPT) 39 12-78 U/L Alkaline Phosphatase 82 45-117 U/L Total Protein 5.8 6.4-8.2 gm/dl Albumin 2.8 3.4-5.0 gm/dl Globulin 3.0 2.5-4.0 gm/dl Albumin/Globulin Ratio 0.9 0.9-2 Lipase 193 73-393 U/L Assessment & Plan Upper abdominal pain that cannot easily be attributed to gallbladder issue Agree with need to be seen at [facility] No indication for cholecystectomy at this time Will sign off Please let us know if there is anything else we can help with
[2017-06-01 11:49] VITALS: BP 127/88; PULSE 94; TEMP 36.6; O2SAT 94
--- NOTE | 2017-06-01 12:12 | Gastroenterology Progress Note ---
Progress Note Date of Service: Jun 01, 2017 Subjective Pt evaluation today including: conversation w/ patient, conversation w/ family (mother), physical exam, chart review, lab review, review of studies, review of inpatient medication list cc f/u abd pain, elev LFTs HPI Pts abd pain has improved. LFTSand lipase better. He is tolerting solid diet. Medications Current Inpatient Medications Medications (Trade) Dose Ordered Sig/Reena Route Start Time Stop Time Status Last Admin Dose Admin Albuterol (Ventolin Hfa Inhaler) 2 puffs BID INH 05/30/17 21:00 06/29/17 20:59 06/01/17 07:55 2 PUFFS Albuterol Sulfate (Ventolin 0.083% 2.5MG/3ML Neb) 2.5 mg Q4H PRN INH 05/30/17 18:00 06/29/17 17:59 Pantoprazole Sodium (Protonix Tab) 40 mg QAM PO 05/31/17 09:00 06/30/17 08:59 Future Hold Enoxaparin Sodium (Lovenox Inj) 40 mg QPM SQ 05/30/17 21:00 06/29/17 20:59 Al Hydrox/Mg Hydrox/Simethicone (Maalox Max Susp) 15 ml Q4H PRN PO 05/30/17 18:00 06/29/17 17:59 Magnesium Hydroxide (Milk Of Magnesia Susp) 30 ml Q6H PRN PO 05/30/17 18:00 06/29/17 17:59 Polyethylene (Miralax Powder Packet) 17 gm DAILY PRN PO 05/30/17 18:00 06/29/17 17:59 Zolpidem Tartrate (Ambien Tab) 5 mg HSZ PRN PO 05/30/17 18:00 06/29/17 17:59 Ondansetron HCl (Zofran Inj) 4 mg Q6H PRN IV 05/30/17 18:00 06/29/17 17:59 Zolpidem Tartrate (Ambien Tab) 5 mg HSZ PRN PO 05/30/17 18:00 06/29/17 17:59 Oxycodone HCl (Roxicodone Immediate Rel Tab) 5 mg Q6H PRN PO 05/30/17 18:00 06/13/17 17:59 06/01/17 06:15 5 MG Metoprolol Tartrate (Lopressor Tab) 25 mg BID PO 05/30/17 21:00 06/29/17 20:59 06/01/17 07:53 25 MG Hydralazine HCl (HydrALAZINE INJ) 15 mg Q6H PRN IV. 05/30/17 18:15 06/29/17 18:14 Pantoprazole Sodium 40 mg/ Syringe 10 ml @ 5 mls/min BID@0900,2100 IV 05/30/17 21:00 06/29/17 20:59 06/01/17 07:53 5 MLS/MIN Salmeterol Xinafoate/ Fluticasone (Advair Diskus 250/50 Inh) 1 puff BID INH 05/30/17 21:00 06/29/17 20:59 06/01/17 07:55 1 PUFF Vancomycin HCl 1500 mg/Sodium Chloride 530 ml @ 200 mls/hr Q8H IV 05/31/17 22:00 06/10/17 13:59 06/01/17 06:11 200 MLS/HR Miscellaneous Information (Consult) 1 ea UD PRN N/A 05/31/17 13:45 06/30/17 13:44 Sodium Chloride 1,000 ml @ 125 mls/hr Q8H IV 05/31/17 14:30 06/30/17 14:29 06/01/17 07:53 125 MLS/HR Objective Vital Signs Date Time Temp Pulse Resp B/P (MAP) Pulse Ox O2 Delivery O2 Flow Rate FiO2 06/01/17 11:49 36.6 94 18 94 Room Air 06/01/17 08:00 Room Air 06/01/17 07:56 36.6 94 18 127/88 (101) 94 Room Air 06/01/17 00:00 Room Air 05/31/17 23:06 36.8 87 18 124/87 (99) 94 Room Air 05/31/17 16:03 92 Room Air 05/31/17 14:50 36.7 89 20 124/88 (100) 92 Room Air Physical Exam General Appearance: WD/WN, no apparent distress Respiratory/Chest: lungs clear, no respiratory distress Cardiovascular: regular rate, rhythm, no murmur Abdomen: normal bowel sounds, soft, no organomegaly, + guarding (RUQ but improved and no rebound) Neurologic/Psych: normal mood/affect, oriented x 3 Laboratory Results Last 24 Hours Test 05/31/17 16:20 06/01/17 07:59 Urine Opiates Screen POS Urine Methadone, Qualitative NEG Urine Barbiturates NEG Urine Phencyclidine (PCP) Level NEG Ur Amphetamine/Methamphetamine NEG MDMA (Ecstasy) Screen NEG Urine Benzodiazepines Screen NEG Urine Cocaine Metabolite NEG Urine Marijuana (THC) NEG White Blood Count 4.20 K/uL Red Blood Count 3.67 M/uL Hemoglobin 10.1 g/dL Hematocrit 32.1 % Mean Corpuscular Volume 87.5 fL Mean Corpuscular Hemoglobin 27.5 pg Mean Corpuscular Hemoglobin Concent 31.5 g/dl Platelet Count 130 K/uL Mean Platelet Volume 9.4 fL Neutrophils (%) (Auto) 50.8 % Lymphocytes (%) (Auto) 37.4 % Monocytes (%) (Auto) 8.3 % Eosinophils (%) (Auto) 3.1 % Basophils (%) (Auto) 0.2 % Neutrophils # (Auto) 2.13 K/uL Lymphocytes # (Auto) 1.57 K/uL Monocytes # (Auto) 0.35 K/uL Eosinophils # (Auto) 0.13 K/uL Basophils # (Auto) 0.01 K/uL RDW Standard Deviation 47.9 fL RDW Coefficient of Variation 15.1 % Immature Granulocyte % (Auto) 0.2 % Immature Granulocyte # (Auto) 0.01 K/uL Sodium Level 140 mmol/L Potassium Level 3.6 mmol/L Chloride Level 107 mmol/L Carbon Dioxide Level 22 mmol/L Anion Gap 11.0 mmol/L Blood Urea Nitrogen 5 mg/dl Creatinine 0.73 mg/dl Est Creatinine Clear Calc Drug Dose 177.7 ml/min Estimated GFR () 140.3 Estimated GFR (Non- 121.0 BUN/Creatinine Ratio 6.4 Random Glucose 63 mg/dl Calcium Level 8.0 mg/dl Total Bilirubin 2.4 mg/dl Aspartate Amino Transf (AST/SGOT) 35 U/L Alanine Aminotransferase (ALT/SGPT) 39 U/L Alkaline Phosphatase 82 U/L Total Protein 5.8 gm/dl Albumin 2.8 gm/dl Globulin 3.0 gm/dl Albumin/Globulin Ratio 0.9 Lipase 193 U/L Assessment and Plan severe fatty liver--unclear etiiology elevated lipase--MRCP negative for CBD pathology elevated LFTS--worse recurrent RUQ pain--unclear etiology hepatomegaly--secondary to severe fatty liver n/v--unclear etiology GB sludge R hepatic lesion 12 mm first noted on CT 03/08/17--stable grade B esophagitis--PPI Symptoms improved and may be ready for DC. Told him to keep appt with administration physician in [place]. If patient still inpt tomorrow then Dr Aguilar is assuming care 06/02/17 at 0730.
[2017-06-01] MEDS ORDERED: CEPH-571 PO (13:32)
[2017-06-01] MEDS ORDERED: LPR25 PO (13:32)
[2017-06-01] MEDS ORDERED: RXC5 PO (13:32)
--- NOTE | 2017-06-01 13:44 | Discharge Instructions ---
Discharge Instructions Date of Service Jun 01, 2017. Admission Reason for Admission: Hepatitis Discharge Discharge Diagnosis / Problem: RUQ pain Discharge Goals Goal(s): Decrease discomfort, Improve function, Increase independence, Improve disease control, Learn about illness, Diagnostic testing, Therapeutic intervention, Prevent Disease Progression Activity Recommendations Activity Limitations: resume your previous activity . Instructions / Follow-Up Instructions / Follow-Up Urinary tract infection: Keflex 500 mg twice daily until prescription is completed RUQ pain: The cause of your RUQ pain is unknown at this time. Roxicodone 1 tablet every 6 hours as needed for pain Keep Data Sme f/u High blood pressure: STOP Lisinopril Metoprolol 25 mg twice daily Resume all other regular home medications FOLLOW-UPS: Please follow-up with your PCP within 5-7 days Please follow-up with Hepatology as scheduled on 06/05 Please follow-up/keep all of your subspecialty appointments Current Hospital Diet Patient's current hospital diet: Low Fiber Diet, Low Fat Diet Discharge Diet Recommended Diet: Low Fiber Diet, Low Fat Diet Pending Studies Studies pending at discharge: yes List of pending studies: Final urine culture and sensitives Laboratory Results Hemoglobin A1c Test 03/12/17 10:00 Range/Units Estimated Average Glucose 97 mg/dl Hemoglobin A1c 5.0 4.5-5.6 % Lipid Panel Test 04/27/17 04:56 Range/Units Triglycerides Level 200 H 0-150 mg/dl Cholesterol Level 172 0-200 mg/dl HDL Cholesterol 35 mg/dl Cholesterol/HDL Ratio 4.9 LDL Cholesterol, Calculated 97 mg/dl Medical Emergencies . Who to Call and When: Medical Emergencies: If at any time you feel your situation is an emergency, please call 911 immediately. . Non-Emergent Contact Non-Emergency issues call your: Primary Care Provider, Specialist ( Data Sme ) Call Non-Emergent contact if: you have a fever, your pain is not controlled, your pain is worsening, your pain is unusual for you, your pain is concerning you, you have any medication questions . . "Provider Documentation" section prepared by Anita Mayorga. .
--- NOTE | 2017-06-01 13:53 | Discharge Summary ---
Discharge Summary Date of Service Jun 01, 2017. Discharge Summary Admission Date: May 30, 2017 at 18:01 Discharge Date: Jun 01, 2017 Discharge Disposition: Home Principal Diagnosis: RUQ pain, UTI, HTN Problems/Secondary Diagnoses: HTN urgency N/V RUQ pain recurrent idiopathic hepatitis hepatic steatosis 1.2 cm right hepatic lobe lesion hyperbilirubinemia UTI POA Hypokalemia Hypomagnesium Asthma w/out exacerbation h/o posttraumatic stress syndrome bipolar disorder ADHD h/o bilateral pulmonary embolism GERD w/ esophagitis Procedures: ABDOMINAL ULTRASOUND, RIGHT UPPER QUADRANT HISTORY: Generalized abdominal pain.. COMPARISON: Abdomen and pelvis CT 04/27/2017. FINDINGS: Pancreas: The pancreatic head and tail are obscured by overlying bowel gas. The remaining portions of the pancreas are within normal limits. Liver: The liver is echogenic consistent with fatty change. 21 cm in length. The hepatic lesion seen on the prior abdomen and pelvis CT is not identified on this study. Gallbladder: No gallbladder wall thickening. No gallstones. CBD: Difficult to visualize due to the patency steatosis but likely measures 6 mm. Right kidney: No hydronephrosis. IMPRESSION: 1. Hepatomegaly demonstrating fatty change. 2. Normal gallbladder. No gallstones. 3. The pancreas was not well visualized. Electronically signed by: Edwin Nails M.D. 05/30/2017 2:00 PM Dictated Date/Time: 05/30/2017 1:58 PM The status of this report is Signed. Draft = Not yet reviewed or approved by Radiologist. Signed = Reviewed and approved by Radiologist ABDOMEN 2VIEW W/PA CHEST RTN CLINICAL HISTORY: ABDOMINAL PAIN/GI pain. Nausea. COMPARISON STUDY: No previous studies for comparison. FINDINGS: The soft tissues, psoas shadows, renal outlines and intestinal gas pattern appear normal. There is no evidence for bowel obstruction. There is no evidence for free intraperitoneal air. No abnormal abdominal calcifications are seen. A frontal view of the chest was performed and is unremarkable. IMPRESSION: Normal study. The above report was generated using voice recognition software. It may contain grammatical, syntax or spelling errors. Electronically signed by: Derik Collier M.D. 05/30/2017 12:00 PM Dictated Date/Time: 05/30/2017 11:59 AM The status of this report is Signed. Draft = Not yet reviewed or approved by Radiologist. Signed = Reviewed and approved by Radiologist MRCP CLINICAL HISTORY: Right upper quadrant pain, elevated liver function tests and elevated lipase. COMPARISON STUDY: MRCP March 09, 2017, CT of the abdomen and pelvis April 27, 2017 and right upper quadrant ultrasound May 30, 2017. TECHNIQUE: Utilizing a 1.5 Rosio magnet and dedicated coil, multiplanar, multi echo imaging of the upper abdomen was performed utilizing heavily T2 weighted pulsing sequences. No intravenous contrast was administered. FINDINGS: No intra or extrahepatic biliary ductal dilatation is noted. The liver is moderately enlarged. Fatty infiltration is better depicted on previous ultrasound and CT. Spleen is normal in size. A 1.2 cm T2 hyperintense right hepatic lobe lesion is unchanged since CT of April 14, 2016. This is likely benign given stability. No additional hepatic lesions are present. No gallstones are identified within the gallbladder. There is no peripancreatic or pericholecystic infiltration. The course and caliber of the main pancreatic duct is normal. No abdominal lymphadenopathy or ascites is present. Unenhanced images of the adrenal glands and kidneys are unremarkable. No common bile duct calculi are identified. IMPRESSION: 1. No intra or extrahepatic biliary ductal dilatation. No choledocholithiasis or cholelithiasis identified. 2. Hepatomegaly and severe fatty infiltration of the liver. 3. Stable 1.2 cm right hepatic lobe lesion which is likely benign Electronically signed by: Jose C De Jesus M.D. 05/31/2017 5:03 PM Dictated Date/Time: 05/31/2017 4:56 PM The status of this report is Signed. Draft = Not yet reviewed or approved by Radiologist. Signed = Reviewed and approved by Radiologist Consultations: GI- Dr. Mcdaniels General surgery- Dr. Rodgers Medication Reconciliation New Medications: Cephalexin (Keflex) 500 Mg Cap 1 CAP PO BID for 7 Days, #14 CAP Metoprolol Tartrate (Lopressor) 25 Mg Tab 25 MG PO BID for 30 Days, #60 TAB Oxycodone HCl (Oxycodone HCl) 5 Mg Tab 5 MG PO Q6H PRN for Pain for 3 Days, #12 TAB Continued Medications: Albuterol Hfa (Ventolin Hfa) 200 Puffs/85995 Mcg Aers 2-4 PUFFS INH BID Albuterol Sulf (Proventil 0.083% 2.5MG/3ML) 2.5 Mg/3 Ml Nebu 2.5 MG INH PRN Fluticasone Prop/Salmeterol (Advair Diskus 250/50 60 Dose) 1 Ea Aerp 1 PUFF INH BID Pantoprazole (Protonix) 40 Mg Tab 40 MG PO QAM Discontinued Medications: Lisinopril (Lisinopril) 10 Mg Tab 10 MG PO QAM Discharge Exam Review of Systems: Constitutional: No fever, No chills, No sweats, No weakness, No fatigue Eyes: No worsening of vision ENT: No hearing loss Respiratory: No cough, No shortness of breath, No hemoptysis Cardiovascular: No chest pain, No edema, No palpitations Abdomen: + pain, No nausea, No vomiting, No diarrhea, No constipation, No GI bleeding Musculoskeletal: No joint pain, No muscle pain, No swelling, No calf pain Genitourinary - Male: No hematuria, No dysuria, No urinary frequency, No urinary urgency, No urinary hesitancy, No urinary retention Neurologic: No weakness, No numbness/tingling Psychiatric: No depression symptoms, No anxiety Endocrine: No fatigue Hematologic / Lymphatic: No abnormal bleeding/bruising Integumentary: No rash, No itch, No new/changing skin lesions Physical Exam: General Appearance: no apparent distress, + obese Eyes: normal inspection, PERRL ENT: hearing grossly normal Neck: supple Respiratory/Chest: lungs clear, no respiratory distress, no accessory muscle use Cardiovascular: regular rate, rhythm Abdomen / GI: normal bowel sounds, soft, + tenderness (severe light ttp of RUQ ), + guarding Extremities: no pedal edema, normal range of motion Neurologic/Psychiatric: alert, normal mood/affect, oriented x 3 Skin: normal color, warm/dry, no rash Hospital Course 52-year-old man with complicated past medical history, hypertension, asthma, posttraumatic stress disorder, bipolar disorder, renal stones, ADHD, history of bilateral pneumonia and history of bilateral pulmonary embolism 7 years ago . Presented with recurrent right upper quadrant pain/nausea vomiting and elevated liver enzymes. HTN urgency- STABLE: - Lisinopril stopped due research showing correlation w/ chronic hepatitis - Started Metoprolol 25 mg BID - IV Hydralazine PRN N/V, RUQ pain, recurrent idiopathic hepatitis, hepatic steatosis, hyperbilirubinemia: - Elevated LFTs at admission- now trending downward- WNL - Bilirubin 3.4 --> 2.4 - Lipase 1200 --> 600 - RUQ U/S, MRCP- w/out acute findings - IV NSS @ 125 ml/hr while NPO- advance diet prior to discharge, tolerated well - Oxycodone q6 hrs PRN for pain management - IV Zofran PRN for nausea - Toxicology screen- reviewed - Has f/u w/ Human Resources Compensation Analyst, Dr. Rucker on June 05 at 11:30 AM - General surgery consulted, appreciate recommendations- no surgical intervention - GI consulted, appreciate recommendations- no further recommendations UTI POA: - UCx growing staph species- past records show CoNS - Start IV Vancomycin- Keflex 500 mg BID at discharge (has taken Keflex in past with no issues)- pending final UCx and sensitives, f/u w/ PCP Hypokalemia- RESOLVED: Continue to follow and replace PRN Hypomagnesium: Treated w/ IV Mag supplement- follow and replace PRN Asthma w/out exacerbation- STABLE: Continue home inhalers h/o posttraumatic stress syndrome , bipolar disorder, ADHD- noted h/o bilateral pulmonary embolism- noted GERD w/ esophagitis: Continue Protonix DVT prophylaxis: Lovenox SQ daily Code status: LEVEL I, FULL Dispo: Discharge to home Total Time Spent: Greater than 30 minutes This includes examination of the patient, discharge planning, medication reconciliation, and communication with other providers. Discharge Instructions Please refer to the electronic Patient Visit Report (Discharge Instructions) for additional information. Follow-Up Please follow-up with your PCP within 5-7 days Please follow-up with Hepatology as scheduled on 06/05 Please follow-up/keep all of your subspecialty appointments Additional Copies To Noemy Lombardi DO
[2017-06-01] MEDS ORDERED: VANCOMYCIN TROUGH ONE (21:30)
== END 2017-06-01 14:15 | disposition home or self-care (01) | DRG 442 ==
LOC: EDBD 10:35 → C.EDC 10:35 → C.MS2W 18:01 → ENRESERV 18:09
PROVIDERS: ADMIT Internal Medicine; ATTEND Hospitalist
DX: K75.9 Inflammatory liver disease, unspecified (principal); N39.0 Urinary tract infection, site not specified; B95.8 Unspecified staphylococcus as the cause of diseases classified elsewhere; I16.0 Hypertensive urgency; K76.0 Fatty (change of) liver, not elsewhere classified; R10.11 Right upper quadrant pain; E80.6 Other disorders of bilirubin metabolism; E86.0 Dehydration; R11.2 Nausea with vomiting, unspecified; E87.6 Hypokalemia; E83.42 Hypomagnesemia; K21.0 Gastro-esophageal reflux disease with esophagitis; I10 Essential (primary) hypertension; J45.909 Unspecified asthma, uncomplicated; E73.9 Lactose intolerance, unspecified; Z51.81 Encounter for therapeutic drug level monitoring; Z79.899 Other long term (current) drug therapy; Z86.711 Personal history of pulmonary embolism; Z87.01 Personal history of pneumonia (recurrent); Z86.59 Personal history of other mental and behavioral disorders; Z88.8 Allergy status to other drugs, medicaments and biological substances; Z88.0 Allergy status to penicillin; Z88.6 Allergy status to analgesic agent; Z91.048 Other nonmedicinal substance allergy status; Z82.5 Family history of asthma and other chronic lower respiratory diseases; Z83.3 Family history of diabetes mellitus; Z82.49 Family history of ischemic heart disease and other diseases of the circulatory system; Z84.1 Family history of disorders of kidney and ureter; Z82.3 Family history of stroke

== ENCOUNTER → 2017-06-29 | Outpatient (CLI) | payer OTHER ==
[~2017-06-29] MED LIST changes: -LISI-461 PO; +LPR25 PO
[2017-06-29 13:59] LABS: BASO % 2.1 %; BASO ABS # 0.09 K/uL (0-0.2); EOS % 5.5 %; EOS ABS # 0.23 K/uL (0-0.5); HEMATOCRIT 40.3 % (42-52); HEMOGLOBIN 12.9 g/dL (14.0-18.0); IG# 0.06 K/uL (0.00-0.02); LYMPH % 36.8 %; LYMPH ABS # 1.54 K/uL (1.2-3.4); MEAN CELL VOLUME 86.1 fL (80-100); MEAN CORPUSCULAR HEMOGLOBIN 27.6 pg (25-34); MONO % 11.2 %; MONO ABS # 0.47 K/uL (0.11-0.59); PLATELET COUNT 321 K/uL (130-400); RED CELL DISTRIBUTION WIDTH CV 17.8 % (11.5-14.5); RED CELL DISTRIBUTION WIDTH SD 55.3 fL (36.4-46.3); WHITE BLOOD COUNT 4.19 K/uL (4.8-10.8)
[2017-06-29 14:46] LABS: ALBUMIN 3.5 gm/dl (3.4-5.0); ALKALINE PHOSPHATASE 156 U/L (45-117); ALT/SGPT 140 U/L (12-78); AST/SGOT 114 U/L (15-37); BLOOD UREA NITROGEN 5 mg/dl (7-18); CALCIUM 8.8 mg/dl (8.5-10.1); CARBON DIOXIDE 24 mmol/L (21-32); CREATININE 0.78 mg/dl (0.60-1.40); GLUCOSE 111 mg/dl (70-99); POTASSIUM 3.5 mmol/L (3.5-5.1); SODIUM 139 mmol/L (136-145)
== END | disposition home or self-care (01) ==
LOC: C.LABPBG 09:39
PROVIDERS: ATTEND Family Medicine
DX: B17.9 Acute viral hepatitis, unspecified (principal); D61.818 Other pancytopenia

== ENCOUNTER 2017-09-05 08:23 | Emergency (ER) | payer OTHER ==
[~2017-09-05] VITALS: Ht 185.4 cm; Wt 96.9 kg
[~2017-09-05 08:23] MED LIST changes: +ONDA8TAB62 SL; -RXC5 PO; +SUCR5SUS PO; +TRAM-10 PO
[2017-09-05 08:27] VITALS: TEMP 37.4; Ht 185.4 cm; Wt 96.9 kg
[2017-09-05] MEDS ORDERED: FAMO20TA9 PO (08:54)
[2017-09-05] MEDS ORDERED: PROM25TA9 PO (08:54)
[2017-09-05] MEDS ORDERED: ONDANSETRON 4MG OD TAB PO STA (09:21)
[2017-09-05] MEDS ORDERED: TRAMADOL HCL 50 MG TAB PO STA (09:26)
--- NOTE | 2017-09-05 09:51 | DIAGNOSTIC IMAGING REPORT ---
L SHOULDER MIN 2 VIEWS ROUTINE CLINICAL HISTORY: L shoulder and forearm pain pain COMPARISON: None. DISCUSSION: The bones and joint spaces appear intact. There is no evidence of fracture, dislocation or bony disease. There is no evidence for soft tissue swelling. Findings consistent with old healed fracture distal clavicle and IMPRESSION: No acute process. The above report was generated using voice recognition software. It may contain grammatical, syntax or spelling errors. Electronically signed by: Derik Collier M.D. 09/05/2017 9:50 AM Dictated Date/Time: 09/05/2017 9:49 AM
--- NOTE | 2017-09-05 09:51 | DIAGNOSTIC IMAGING REPORT ---
LEFT FOREARM 2 VIEWS CLINICAL HISTORY: Left forearm pain. FINDINGS: AP and lateral views of the left forearm are obtained. No prior studies are available for comparison at the time of dictation. The skeletal structures are well mineralized. There is no radiographic evidence of left forearm fracture. The wrist and elbow joints are grossly maintained. Soft tissue edema is noted in the forearm. IMPRESSION: Soft tissue edema with no radiographic evidence of left forearm fracture. Electronically signed by: Compa Ortez M.D. 09/05/2017 9:50 AM Dictated Date/Time: 09/05/2017 9:48 AM
[2017-09-05 10:03] VITALS: BP 143/92; PULSE 88; O2SAT 98
[2017-09-05] MEDS ORDERED: TRAM-10 PO (10:18)
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
== END 2017-09-05 10:30 | disposition home or self-care (01) ==
LOC: C.EDB 08:24
DX: M25.512 Pain in left shoulder (principal); M79.632 Pain in left forearm; X50.1XXA Overexertion from prolonged static or awkward postures, initial encounter; Y92.89 Other specified places as the place of occurrence of the external cause; I10 Essential (primary) hypertension; J45.909 Unspecified asthma, uncomplicated; Z86.711 Personal history of pulmonary embolism; Z79.899 Other long term (current) drug therapy; Z88.8 Allergy status to other drugs, medicaments and biological substances; Z91.011 Allergy to milk products; Z88.0 Allergy status to penicillin; Z91.048 Other nonmedicinal substance allergy status

== ENCOUNTER 2017-09-12 09:27 | Emergency (ER) | payer OTHER ==
[~2017-09-12] VITALS: Ht 185.4 cm; Wt 94.0 kg
[~2017-09-12 09:27] MED LIST changes: +FAMO20TA9 PO; +PROM25TA9 PO; -TRAM-10 PO
[2017-09-12 09:35] VITALS: TEMP 36.5; Ht 185.4 cm; Wt 94.0 kg
[2017-09-12] MEDS ORDERED: MoRPHine SULFATE 10 MG/ML CARP/VIAL IV STA (09:46)
[2017-09-12] MEDS ORDERED: ACETAMINOPHEN 500 MG TAB PO STA (09:46)
--- NOTE | 2017-09-12 10:11 | EMERGENCY ROOM VISIT NOTE ---
History Report prepared by Luz: Bertrand Luis Under the Supervision of: Dr. Charles Granados M.D. First contact with patient: 09:37 Chief Complaint: SHOULDER PAIN Stated Complaint: SHOULDER PAIN/VOMITING History of Present Illness The patient is a 32 year old male with a past medical history of abdominal pain, asthma, bilateral flank pain, brain bleed, broken back, hepatitis, malingerer, postconcussive syndrome, PTSD, and vomiting who presents to the ED with a cc of constant left shoulder pain beginning on August 27. The notes that the pain started after he tried to help his mother off the ground. He states that the pain feels like a burning sensation that felt and sounded like "dried rubber bands being pulled" and is causing him to vomit. He states that he tried to ice the injury which provided mild relief. The patient states that he is left handed. Positive vomiting. Negative fever. Source of History: patient Onset: August 27 Position: shoulder (left) Quality: burning Timing: constant Modifying Factors (Relieving): ice (Mild) Associated Symptoms: + vomiting, No fevers Review of Systems See HPI for pertinent positives and negatives. A total of ten systems were reviewed and were otherwise negative. Past Medical & Surgical Medical Problems: (1) Abdominal pain (2) Asthma (3) Bilateral flank pain (4) Brain bleed (5) Broken back (6) Hepatitis (7) Malingerer (8) Postconcussive syndrome (9) PTSD (post-traumatic stress disorder) (10) Vomiting Social History Problems: (1) Drug-seeking behavior Family History Asthma Cancer Diabetes mellitus FH: heart disease FHx: lung disease Hypertension Kidney disease Kidney stones Stroke Social History Smoking Status: Never Smoker Alcohol Use: none Drug Use: none Marital Status: single Housing Status: lives with family Occupation Status: unemployed Current/Historical Medications Scheduled Albuterol Hfa (Ventolin Hfa), 2-4 PUFFS INH BID Albuterol Sulf (Proventil 0.083% 2.5MG/3ML), 2.5 MG INH PRN Famotidine (Pepcid), 20 MG PO BID Fluticasone Prop/Salmeterol (Advair Diskus 250/50 60 Dose), 1 PUFF INH BID Metoprolol Tartrate (Lopressor), 25 MG PO BID Pantoprazole (Protonix), 40 MG PO QAM Sertraline (Zoloft), 1 TAB PO BID Sucralfate (Carafate), 10 MG PO QID Scheduled PRN Ondansetron Hcl (Zofran), 4 MG PO Q8H PRN for Nausea Ondansetron Odt (Zofran Odt), 1 TAB SL UD PRN for Nausea Oxycodone Immediate Rel Tab (Roxicodone Ir), 5 MG PO Q6H PRN for Pain Promethazine Hcl (Phenergan), 25 MG PO Q6H PRN for Nausea Allergies Coded Allergies: Lactose Intolerance (GI) (Verified Allergy, Intermediate, abdomainal cramps, diarrhea, 09/12/17) Mold (Blue) Cheese (Verified Allergy, Intermediate, rash, 09/12/17) Penicillins (Verified Allergy, Intermediate, ITCHY BLOTCHES, 09/12/17) Amitriptyline (Verified Allergy, Unknown, chest tightness difficulty breathing unable to function, 09/12/17) Naproxen (Verified Allergy, Unknown, ITCHY, 09/12/17) Red Dye (Verified Allergy, Unknown, HIVES, 09/12/17) Physical Exam Vital Signs Date Time Temp Pulse Resp B/P (MAP) Pulse Ox O2 Delivery O2 Flow Rate FiO2 09/12/17 12:15 105 16 159/132 96 09/12/17 11:17 99 16 153/105 95 Room Air 09/12/17 09:35 36.5 90 16 141/108 98 Room Air Physical Exam GENERAL: Awake, alert, well-appearing, NAD, wearing glasses HENT: Normocephalic, atraumatic. EYES: Normal conjunctiva. Sclera non-icteric. PERRL. No anisocoria. NECK: Supple. No nuchal rigidity. FROM. RESPIRATORY: CTAB, no rhonchi, wheezing, crackles CARDIAC: RRR, no MRG ABDOMEN: Soft, NTND, BS+ MSK: No chest wall TTP, Left sided shoulder, clavicular, and upper arm pain NEURO: GCS 15, CN 2-12 intact, moves all 4s on command, NVI distally, MUR good, good radial pulse SKIN: No rash or jaundice noted. No effusion or erythema over left shoulder. Medical Decision & Procedures ER Provider Diagnostic Interpretation: Radiology results as stated below per my review and radiologist interpretation: LEFT CLAVICLE RADIOGRAPHS CLINICAL HISTORY: Left clavicle pain. COMPARISON: Left shoulder radiographs September 05, 2017. FINDINGS: Alignment of the left acromioclavicular and glenohumeral joints is anatomic. There is no acute left clavicular fracture. Irregularity distal left clavicle suggest old injury. IMPRESSION: 1. No acute left clavicular fracture. 2. Distal left clavicular irregularity which is chronic and may favors an old injury. Electronically signed by: Jose C De Jesus M.D. 09/12/2017 10:18 AM Dictated Date/Time: 09/12/2017 10:16 AM L SHOULDER MIN 2 VIEWS ROUTINE CLINICAL HISTORY: Left shoulder pain. COMPARISON: Shoulder radiographs September 05, 2017. FINDINGS: Alignment of the left shoulder is anatomic. No fracture or suspicious lesion is noted. Mild deformity of the distal left clavicle is chronic. IMPRESSION: No acute fracture or dislocation of the left shoulder. Electronically signed by: Jose C De Jesus M.D. 09/12/2017 10:15 AM Dictated Date/Time: 09/12/2017 10:13 AM Medications Administered Medications (Trade) Dose Ordered Sig/Reena Route Start Time Stop Time Status Last Admin Dose Admin Morphine Sulfate (MoRPHine SULFATE INJ) 8 mg NOW STAT IV 09/12/17 09:46 09/12/17 09:48 DC 09/12/17 10:43 8 MG Hydromorphone HCl (Dilaudid Inj) 0.5 mg NOW STAT IV 09/12/17 11:02 09/12/17 11:03 DC 09/12/17 11:16 0.5 MG Ondansetron HCl (Zofran Inj) 4 mg NOW STAT IV 09/12/17 11:02 09/12/17 11:03 DC 09/12/17 11:16 4 MG Oxycodone HCl (Roxicodone Immediate Rel Tab) 5 mg NOW STAT PO 09/12/17 11:02 09/12/17 11:03 DC 09/12/17 11:29 5 MG ED Course 0940: The patient was evaluated in room C12B. A complete history and physical exam was performed. 1147: I reevaluated the patient. Discussed results and discharge instructions: He verbalized understanding and agreement. The patient is ready for discharge. Medical Decision Nursing notes reviewed. Ancillary studies and prior records reviewed. The patient is a 32 year old male with a past medical history of abdominal pain, asthma, bilateral flank pain, brain bleed, broken back, hepatitis, malingerer, postconcussive syndrome, PTSD, and vomiting who presents to the ED with a cc of constant left shoulder pain beginning on August 27. Differential diagnosis: Etiologies such as fracture, dislocation, neurovascular compromise, compartment syndrome, soft tissue injury, as well as others were entertained. Patient was seen and evaluated the bedside. Patient was recently seen late last month on the with the patient did have plain films of the shoulder and forearm completed without any evidence of fracture. Patient states that this initial episode happened greater than 1 week ago where he tried to pull his mother up off the ground after she had fallen. The patient is neurovascularly intact distally. The patient did have films of the shoulder and clavicle obtained. The patient was given pain medication. Of note the patient has had a prior history of surgical repair of his rotator cuff. Patient's plain films are unremarkable. The patient was given follow-up with orthopedics here. Patient was told to continue additional treatment to follow- up with his PCP for additional imaging, physical therapy, and/or pain control. Patient was given strict follow-up, discharge, and return precautions. All questions were answered. Patient was deemed suitable for outpatient follow-up at this time. Patient agreed with the plan of care and was safely discharged home. Blood Pressure Screening Patient's blood pressure: Elevated blood pressure Blood pressure disposition: Elevated BP felt to be situational Impression Primary Impression: Shoulder pain, left Scribe Attestation The scribe's documentation has been prepared under my direction and personally reviewed by me in its entirety. I confirm that the note above accurately reflects all work, treatment, procedures, and medical decision making performed by me. Departure Information Dispostion Home / Self-Care Prescriptions Ondansetron Hcl (ZOFRAN) 4 Mg Tab 4 MG PO Q8H Y for Nausea, #12 TAB Prov: Charles Granados M.D. 09/12/17 Oxycodone Immediate Rel Tab (ROXICODONE IR) 5 Mg Tab 5 MG PO Q6H Y for Pain, #12 TAB Prov: Charles Granados M.D. 09/12/17 Referrals Noemy Lombardi DO (PCP) [facility] Forms HOME CARE DOCUMENTATION FORM, IMPORTANT VISIT INFORMATION Patient Instructions Anatomy Shoulder, ED Shoulder Pain Carmen DUTTA [facility] Additional Instructions Please return to the emergency department if you have worsening or recurrent symptoms not amenable to at-home treatment. Please call for a follow-up appointment with her primary care physician. Please take your medications as prescribed. If you have other concerns and/or complaints please feel free to also call your primary care physician's office or return the ED for further evaluation, management, and treatment. You were found to have an elevated blood pressure today (>120 sytolic or >90 diastolic). Per medicare guidelines, you need to follow up with this blood pressure screening with your Primary Care Physician (PCP). For a new PCP call [phone]. You received narcotic or benzodiazepene medication while in the emergency room today. This is an addictive medication that may cause drowziness as well as constipation. Do not drive, operate heavy machinery, or drink alcohol under the influence of this medication. You may take tylenol 650 mg every 6 hours as needed for pain/fever unless told by your physician to not take it or have liver problems. Take your medications as prescribed. Please follow-up with your primary care physician for further evaluation, pain control, physical therapy, and/or referral. You have been examined and treated today on an emergency basis only. This is not a substitute for, or an effort to provide, complete comprehensive medical care. It is impossible to recognize and treat all injuries or illnesses in a single emergency department visit. It is therefore important that you follow up closely with [facility], your PCP, and/or your specialist(s). Call as soon as possible for an appointment. Thank you for your time and consideration. I look forward to speaking with you again soon. Please don't hesitate to call us if you have any questions. Problem Qualifiers Primary Impression: Shoulder pain, left Chronicity: chronic Qualified Codes: M25.512 - Pain in left shoulder; G89.29 - Other chronic pain
--- NOTE | 2017-09-12 10:17 | DIAGNOSTIC IMAGING REPORT ---
L SHOULDER MIN 2 VIEWS ROUTINE CLINICAL HISTORY: Left shoulder pain. COMPARISON: Shoulder radiographs September 05, 2017. FINDINGS: Alignment of the left shoulder is anatomic. No fracture or suspicious lesion is noted. Mild deformity of the distal left clavicle is chronic. IMPRESSION: No acute fracture or dislocation of the left shoulder. Electronically signed by: Jose C De Jesus M.D. 09/12/2017 10:15 AM Dictated Date/Time: 09/12/2017 10:13 AM
--- NOTE | 2017-09-12 10:19 | DIAGNOSTIC IMAGING REPORT ---
LEFT CLAVICLE RADIOGRAPHS CLINICAL HISTORY: Left clavicle pain. COMPARISON: Left shoulder radiographs September 05, 2017. FINDINGS: Alignment of the left acromioclavicular and glenohumeral joints is anatomic. There is no acute left clavicular fracture. Irregularity distal left clavicle suggest old injury. IMPRESSION: 1. No acute left clavicular fracture. 2. Distal left clavicular irregularity which is chronic and may favors an old injury. Electronically signed by: Jose C De Jesus M.D. 09/12/2017 10:18 AM Dictated Date/Time: 09/12/2017 10:16 AM
[2017-09-12] MEDS ORDERED: SERT-234 PO (10:41)
[2017-09-12] MEDS ORDERED: HYDROmorphone INJ 0.5 MG/0.5 ML SYR IV STA (11:02)
[2017-09-12] MEDS ORDERED: ONDANSETRON INJ 2 MG/ML 2 ML VIAL IV STA (11:02)
[2017-09-12] MEDS ORDERED: OXYCODONE HCL IR 5 MG TAB (IMMEDIATE RELEASE) PO STA (11:02)
[2017-09-12] MEDS ORDERED: ONDA4TAB46 PO (11:21)
[2017-09-12] MEDS ORDERED: OXYC-737 PO (11:21)
[2017-09-12 12:15] VITALS: BP 159/132; PULSE 105; O2SAT 96
== END 2017-09-12 12:05 | disposition home or self-care (01) ==
LOC: EDBD 09:27 → C.EDC 09:28
DX: M25.512 Pain in left shoulder (principal); G89.29 Other chronic pain; Z98.890 Other specified postprocedural states; J45.909 Unspecified asthma, uncomplicated; Z79.51 Long term (current) use of inhaled steroids; F43.12 Post-traumatic stress disorder, chronic; Z88.8 Allergy status to other drugs, medicaments and biological substances; Z88.0 Allergy status to penicillin; Z91.018 Allergy to other foods; Z91.09 Other allergy status, other than to drugs and biological substances

== ENCOUNTER 2017-09-19 07:58 | Inpatient (IN) | payer OTHER ==
[~2017-09-19] VITALS: Ht 185.4 cm; Wt 96.0 kg
[~2017-09-19 07:58] MED LIST changes: +ONDA4TAB46 PO; +OXYC-737 PO; +SERT-234 PO
[2017-09-19] MEDS ORDERED: SODIUM CHLORIDE 0.9% 1000ML 1,000 ML IV STA (08:12)
[2017-09-19] MEDS ORDERED: ONDANSETRON INJ 2 MG/ML 2 ML VIAL IV STA (08:27)
[2017-09-19] MEDS ORDERED: HYDROmorphone INJ 1 MG/ML SYR IV STA ×2 (08:27→10:05)
[2017-09-19 08:28] LABS: BASO % 0.1 %; BASO ABS # 0.01 K/uL (0-0.2); HEMATOCRIT 44.2 % (42-52); HEMOGLOBIN 14.4 g/dL (14.0-18.0); IG# 0.04 K/uL (0.00-0.02); LYMPH % 9.7 %; LYMPH ABS # 1.28 K/uL (1.2-3.4); MEAN CELL VOLUME 83.4 fL (80-100); MEAN CORPUSCULAR HEMOGLOBIN 27.2 pg (25-34); MEAN CORPUSCULAR HGB CONC 32.6 g/dl (32-36); MEAN PLATELET VOLUME 10.5 fL (7.4-10.4); MONO % 6.5 %; MONO ABS # 0.86 K/uL (0.11-0.59); NEUT % 83.4 %; NEUT ABS # 11.02 K/uL (1.4-6.5); PLATELET COUNT 412 K/uL (130-400); RED CELL DISTRIBUTION WIDTH CV 18.5 % (11.5-14.5); RED CELL DISTRIBUTION WIDTH SD 56.3 fL (36.4-46.3); WHITE BLOOD COUNT 13.21 K/uL (4.8-10.8)
[2017-09-19 08:37] LABS: ISTAT CREATININE 0.9 mg/dl (0.6-1.3); ISTAT IONIZED CALCIUM 0.97 mmol/l (1.12-1.32); ISTAT POTASSIUM 3.2 mEq/L (3.3-5.0)
[2017-09-19] MEDS ORDERED: PANTOprazole SOD 40 MG TAB PO STA (08:45)
[2017-09-19 08:53] LABS: ALBUMIN 3.6 gm/dl (3.4-5.0); CALCIUM 9.3 mg/dl (8.5-10.1); CREATININE 1.28 mg/dl (0.60-1.40); POTASSIUM 3.2 mmol/L (3.5-5.1); TOTAL PROTEIN 7.8 gm/dl (6.4-8.2)
[2017-09-19] MEDS ORDERED: OPTIRAY 320 IV PRN ×2 (09:00→09:15)
[2017-09-19] MEDS ORDERED: POTASSIUM CHLORIDE 20 MEQ TABCR PO STA (09:01)
--- NOTE | 2017-09-19 09:07 | DIAGNOSTIC IMAGING REPORT ---
CT SCAN OF THE ABDOMEN AND PELVIS WITH IV CONTRAST CLINICAL HISTORY: Generalized abdominal pain. Vomiting. COMPARISON STUDY: Abdominal CT dated 04/27/2017 and 04/24/2016. TECHNIQUE: Following the IV administration of 92 cc of Optiray 320, CT scan of the abdomen and pelvis is performed from the lung bases to the proximal femora. Images are reviewed in the axial, sagittal, and coronal planes. IV contrast was administered without complication. A dose lowering technique was utilized adhering to the principles of ALARA. CT DOSE: 536.83 mGy.cm FINDINGS: Lung bases: There are extensive bilateral lower lobe pulmonary emboli. The heart is normal in size and without pericardial effusion. The lung bases are clear. A moderate hiatal hernia is observed. Gynecomastia is noted. Liver: The contrast-enhanced liver is enlarged, measuring 21.6 cm in length. The liver demonstrates diffusely diminished attenuation consistent with severe hepatic steatosis. There is no intrahepatic biliary ductal dilatation. The hepatic veins and portal veins are patent. A 14 mm hypervascular/hyperdense lesion is again seen in the right hepatic lobe on image #105. Gallbladder: Surgically absent noting clips in the gallbladder fossa. Spleen: Normal in size and attenuation. Pancreas: Unremarkable. Adrenal glands: Unremarkable. Kidneys: The contrast enhanced kidneys are normal in size and without hydronephrosis. The kidneys enhance symmetrically. Small bilateral nonobstructing renal calculi measuring up to 3 mm. Abdominal vasculature: The abdominal aorta is normal in course and caliber. Bowel: The small bowel and colon are normal in course and caliber. The appendix is not identified and reported surgically absent. Peritoneum: There is no intraperitoneal free air or abdominal ascites. There is a fat-containing umbilical hernia. Lymphadenopathy: None. Pelvic viscera: The bladder, prostate, and seminal vesicles are normal as visualized. Skeletal structures: No lytic or blastic lesions are seen. There are mild compression deformities of T9, T10, and T12. IMPRESSION: 1. Extensive bilateral pulmonary emboli are identified at the lung bases. 2. There are no acute infectious or inflammatory findings in the abdomen or pelvis. 3. Hepatomegaly and severe hepatic steatosis. 4. Small bilateral nonobstructing renal calculi. 5. Hiatal hernia. 6. A 14 mm hyperdense/hypervascular lesion in the right lobe of the liver is unchanged. This is incompletely characterized but likely represents a hemangioma. This has not significantly changed from prior studies. 7. Additional findings as above. Findings were discussed with Dr. Levi in the emergency department at the time of interpretation. Electronically signed by: Compa Ortez M.D. 09/19/2017 9:06 AM Dictated Date/Time: 09/19/2017 8:56 AM
--- NOTE | 2017-09-19 09:14 | EMERGENCY ROOM VISIT NOTE ---
History First contact with patient: 08:07 Chief Complaint: VOMITING Stated Complaint: VOMITING, ABD PAIN, KIDNEY PAIN History of Present Illness The patient is a 32 year old male who presents to the Emergency Room with complaints of vomiting. Patient has a complicated medical history including hepatitis. He reports he has not been able to keep anything down for the past 3 days. He is complaining of kidney pain and states that his urine smells like sulfur. Is also complaining of an orange tint to it. The patient is concerned about his potassium. He denies any chest pain or shortness of breath. Review of Systems See HPI for pertinent positives & negatives. A total of 10 systems reviewed and were otherwise negative. Past Medical/Surgical History Medical Problems: (1) Abdominal pain (2) Asthma (3) Bilateral flank pain (4) Brain bleed (5) Broken back (6) Hepatitis (7) Intractable nausea and vomiting (8) Malingerer (9) Postconcussive syndrome (10) PTSD (post-traumatic stress disorder) (11) Vomiting Social History Problems: (1) Drug-seeking behavior Family History Asthma Cancer Diabetes mellitus FH: heart disease FHx: lung disease Hypertension Kidney disease Kidney stones Stroke Social History Smoking Status: Former Smoker Alcohol Use: none Drug Use: none Marital Status: single Housing Status: lives with family Occupation Status: unemployed Current/Historical Medications Scheduled Albuterol Hfa (Ventolin Hfa), 2-4 PUFFS INH BID Albuterol Sulf (Proventil 0.083% 2.5MG/3ML), 2.5 MG INH PRN Famotidine (Pepcid), 20 MG PO BID Fluticasone Prop/Salmeterol (Advair Diskus 250/50 60 Dose), 1 PUFF INH BID Metoprolol Tartrate (Lopressor), 25 MG PO BID Pantoprazole (Protonix), 40 MG PO QAM Sertraline (Zoloft), 1 TAB PO BID Sucralfate (Carafate), 10 MG PO QID Scheduled PRN Ondansetron Hcl (Zofran), 4 MG PO Q8H PRN for Nausea Promethazine Hcl (Phenergan), 25 MG PO Q6H PRN for Nausea Physical Exam Vital Signs Date Time Temp Pulse Resp B/P (MAP) Pulse Ox O2 Delivery O2 Flow Rate FiO2 09/19/17 10:00 106 27 98 Room Air 09/19/17 09:43 139/94 09/19/17 08:02 36.8 125 20 126/92 98 Room Air Physical Exam GENERAL: Awake, alert, well-appearing, in no acute distress HENT: Normocephalic, atraumatic. Oropharynx unremarkable. EYES: Normal conjunctiva. Sclera non-icteric. NECK: Supple. No nuchal rigidity. FROM. No JVD. RESPIRATORY: Clear to auscultation. CARDIAC: Regular rate, normal rhythm. Extremities warm and well perfused. Pulses equal. ABDOMEN: Soft, non-distended. No tenderness to palpation. No rebound or guarding. No masses. RECTAL: Deferred. MUSCULOSKELETAL: Chest examination reveals no tenderness. The back is symmetrical on inspection without obvious abnormality. There is Rt sided CVA tenderness to palpation. No joint edema. LOWER EXTREMITIES: Calves are equal size bilaterally and non-tender. No edema. No discoloration. NEURO: Normal sensorium. No sensory or motor deficits noted. SKIN: No rash or jaundice noted. Medical Decision & Procedures Laboratory Results 09/19/17 08:20 Red Blood Count 5.30, Mean Corpuscular Volume 83.4, Mean Corpuscular Hemoglobin 27.2, Mean Corpuscular Hemoglobin Concent 32.6, Mean Platelet Volume 10.5, Neutrophils (%) (Auto) 83.4, Lymphocytes (%) (Auto) 9.7, Monocytes (%) (Auto) 6.5, Eosinophils (%) (Auto) 0.0, Basophils (%) (Auto) 0.1, Neutrophils # (Auto) 11.02, Lymphocytes # (Auto) 1.28, Monocytes # (Auto) 0.86, Eosinophils # (Auto) 0.00, Basophils # (Auto) 0.01 09/19/17 08:20 Test 09/19/17 08:20 09/19/17 08:24 09/19/17 09:21 White Blood Count 13.21 K/uL (4.8-10.8) Red Blood Count 5.30 M/uL (4.7-6.1) Hemoglobin 14.4 g/dL (14.0-18.0) Hematocrit 44.2 % (42-52) Mean Corpuscular Volume 83.4 fL (80-100) Mean Corpuscular Hemoglobin 27.2 pg (25-34) Mean Corpuscular Hemoglobin Concent 32.6 g/dl (32-36) Platelet Count 412 K/uL (130-400) Mean Platelet Volume 10.5 fL (7.4-10.4) Neutrophils (%) (Auto) 83.4 % Lymphocytes (%) (Auto) 9.7 % Monocytes (%) (Auto) 6.5 % Eosinophils (%) (Auto) 0.0 % Basophils (%) (Auto) 0.1 % Neutrophils # (Auto) 11.02 K/uL (1.4-6.5) Lymphocytes # (Auto) 1.28 K/uL (1.2-3.4) Monocytes # (Auto) 0.86 K/uL (0.11-0.59) Eosinophils # (Auto) 0.00 K/uL (0-0.5) Basophils # (Auto) 0.01 K/uL (0-0.2) RDW Standard Deviation 56.3 fL (36.4-46.3) RDW Coefficient of Variation 18.5 % (11.5-14.5) Immature Granulocyte % (Auto) 0.3 % Immature Granulocyte # (Auto) 0.04 K/uL (0.00-0.02) Prothrombin Time 11.2 SECONDS (9.0-12.0) Prothromb Time International Ratio 1.1 (0.9-1.1) Activated Partial Thromboplast Time 22.8 SECONDS (21.0-31.0) Partial Thromboplastin Ratio 0.9 Est Creatinine Clear Calc Drug Dose 91.9 ml/min Estimated GFR () 84.1 Estimated GFR (Non- 72.5 BUN/Creatinine Ratio 5.7 (10-20) Calcium Level 9.3 mg/dl (8.5-10.1) Total Bilirubin 2.7 mg/dl (0.2-1) Direct Bilirubin 0.8 mg/dl (0-0.2) Aspartate Amino Transf (AST/SGOT) 85 U/L (15-37) Alanine Aminotransferase (ALT/SGPT) 65 U/L (12-78) Alkaline Phosphatase 181 U/L (45-117) Total Creatine Kinase 31 U/L (39-308) Creatine Kinase MB < 1.0 ng/ml (0.5-3.6) Creatine Kinase MB Ratio (0-3.0) Troponin I < 0.015 ng/ml (0-0.045) Total Protein 7.8 gm/dl (6.4-8.2) Albumin 3.6 gm/dl (3.4-5.0) Lipase 80 U/L (73-393) Bedside Hemoglobin 15.6 g/dl (14.0-18.0) Bedside Hematocrit 46 % (42-52) Bedside Sodium 138 mEq/L (135-144) Bedside Potassium 3.2 mEq/L (3.3-5.0) Bedside Chloride 90 mEq/L (101-112) Bedside Total CO2 29 mEq/l (24-31) Anion Gap 24.0 mmol/L (16-25) Bedside Blood Urea Nitrogen 5 mg/dl (7-18) Bedside Creatinine 0.9 mg/dl (0.6-1.3) Bedside Glucose (other) 141 mg/dl (70-99) Bedside Ionized Calcium (To) 0.97 mmol/l (1.12-1.32) Medications Administered Medications (Trade) Dose Ordered Sig/Reena Route Start Time Stop Time Status Last Admin Dose Admin Sodium Chloride 1,000 ml @ 999 mls/hr Q1H1M STAT IV 09/19/17 08:12 09/19/17 09:12 DC 09/19/17 08:12 999 MLS/HR Hydromorphone HCl (Dilaudid Inj) 1 mg NOW STAT IV 09/19/17 08:27 09/19/17 08:28 DC 09/19/17 08:38 1 MG Ondansetron HCl (Zofran Inj) 4 mg NOW STAT IV 09/19/17 08:27 09/19/17 08:28 DC 09/19/17 08:38 4 MG Pantoprazole Sodium (Protonix Tab) 40 mg NOW STAT PO 09/19/17 08:45 09/19/17 08:46 DC 09/19/17 08:55 40 MG Potassium Chloride (Klor-Con Tab) 40 meq NOW STAT PO 09/19/17 09:01 09/19/17 09:02 DC 09/19/17 09:01 40 MEQ Heparin Sodium/ Dextrose (Heparin 25,000 Unit/500ml D5W) 25,000 unit STK-MED ONCE .ROUTE 09/19/17 09:20 09/19/17 09:21 DC 09/19/17 09:44 25,000 UNIT Hydromorphone HCl (Dilaudid Inj) 1 mg NOW STAT IV 09/19/17 10:05 09/19/17 10:06 DC 09/19/17 10:11 1 MG Metoclopramide HCl (Reglan Inj) 10 mg NOW STAT IV. 09/19/17 10:05 09/19/17 10:07 DC 09/19/17 10:11 10 MG ECG Per My Interpretation Indication: abdominal pain Rate (beats per minute): 109 Rhythm: normal sinus Findings: no acute ischemic change, no ectopy Medical Decision Prior records/ancillary studies reviewed. Triage Nursing notes reviewed. Additional history obtained from mother. The patient's history was concerning for abdominal pain. Differential diagnosis: Etiologies such as appendicitis, diverticulitis, PUD, biliary pathology, UTI, pancreatitis, obstruction, mesenteric ischemia, aortic pathology, infections, inflammatory bowel disease, renal colic, as well as others were entertained. Physical examination findings: As above. This is a 32-year-old male who presents emergency department complaining of vomiting along with epigastric pain and back pain. Patient was sent for CAT scan of his abdomen and pelvis because he was concerned that this is the worst pain of his life. The CAT scan is concerning for multiple PEs. The patient does have a history of PEs. He denied chest pain and shortness of breath on questioning however on further questioning the patient reports pain with deep inspiration. His heart rate is high. For this a EKG as well as cardiac enzymes were obtained. I did cancel the patient's fluid due to the PEs. The patient was given 1 mg of Dilaudid for his pain. Using shared medical decision making with the patient and his mother he has never had a hypercoagulable workup performed therefore this will be drawn prior to starting heparin. I did discuss the case with the hospitalist who agreed to admit the patient. Patient and family were in agreement with the treatment plan. Medication Reconcilliation Current Medication List: was personally reviewed by me Blood Pressure Screening Patient's blood pressure: Normal blood pressure Impression Primary Impression: Vomiting Additional Impression: Pulmonary embolism Departure Information Dispostion Still a Patient Referrals Noemy Lombardi DO (PCP) Patient Instructions My [facility] Health Problem Qualifiers Primary Impression: Vomiting Vomiting type: unspecified Vomiting Intractability: unspecified Nausea presence: unspecified Qualified Codes: R11.10 - Vomiting, unspecified Additional Impression: Pulmonary embolism Pulmonary embolism type: other Chronicity: acute Acute cor pulmonale presence: without acute cor pulmonale Qualified Codes: I26.99 - Other pulmonary embolism without acute cor pulmonale
[2017-09-19] MEDS ORDERED: HEPARIN 25000 UNIT/500 ML D5W ONE (09:20)
[2017-09-19 09:22] LABS: INR 1.1 (0.9-1.1); PTT PATIENT 22.8 SECONDS (21.0-31.0)
[2017-09-19] MEDS ORDERED: POTASSIUM CHLORIDE 10 MEQ TABCR ONE (09:44)
[2017-09-19 09:46] LABS: CKMB < 1.0 ng/ml (0.5-3.6)
--- NOTE | 2017-09-19 09:50 | DIAGNOSTIC IMAGING REPORT ---
CT ANGIOGRAM OF THE CHEST CLINICAL HISTORY: Dyspnea. Nausea. Pulmonary emboli seen on today's abdominal CT. COMPARISON STUDY: Abdominal CT performed the same day 09/19/2017. Chest x-ray dated 07/27/2017. TECHNIQUE: Following the IV administration of 95 cc of Optiray 320, CT angiogram of the chest was performed from the upper abdomen to the thoracic inlet utilizing the pulmonary embolus protocol. Images are reviewed in the axial, sagittal, and coronal planes. 3-D MIPS images are created and assessed. IV contrast was administered without complication. A dose lowering technique was utilized adhering to the principles of ALARA. CT DOSE: 398.96 mGy.cm FINDINGS: Thyroid: Imaged portions of the thyroid gland are normal in size and attenuation. Thoracic aorta: The thoracic aorta is normal in caliber and demonstrates standard 3-vessel arch anatomy. No dissection is seen. Pulmonary vasculature: The pulmonary trunk is normal in caliber. There is pulmonary was identified within the right lower lobe pulmonary artery. This extends into segmental and subsegmental branches. Segmental and subsegmental pulmonary emboli are also seen within branches of the right upper and right lower lobe pulmonary arteries. On the left, there is pulmonary embolus seen within the distal left main pulmonary artery. This extends into the lingular branches into segmental and subsegmental branches. Pulmonary emboli are also seen within segmental and subsegmental branches of the left lower lobe. Heart: The heart is normal in size and without pericardial effusion. Lungs and pleural spaces: Mild emphysematous change is suggested. There is no airspace consolidation or pleural effusion. Mild diffuse peribronchial thickening suggests reactive airway disease. The trachea and central airways are clear. Mediastinum: There is no mediastinal lymphadenopathy. Brit: Clear. Axillae: There is no axillary lymphadenopathy. Upper abdomen: The liver is enlarged and there is severe hepatic steatosis. A 14 mm hypervascular focus in the right lobe of the liver is unchanged. A small to moderate hiatal hernia is observed. Skeletal structures: No lytic or blastic bony lesions are seen. Mild superior endplate compression deformities are seen at all thoracic levels between T2 and T12. Soft tissues: Gynecomastia is noted. IMPRESSION: 1. Extensive bilateral pulmonary emboli as above. 2. There is no airspace consolidation or pleural effusion. 3. Mild diffuse peribronchial thickening suggests reactive air disease. Clinical correlation will be required. 4. Hepatomegaly and severe hepatic steatosis. 5. Additional findings as above. Electronically signed by: Compa Ortez M.D. 09/19/2017 9:49 AM Dictated Date/Time: 09/19/2017 9:42 AM
[2017-09-19] MEDS ORDERED: METOCLOPRAMIDE HCL INJ 5 MG/ML 2 ML VIAL IV. STA (10:05)
--- NOTE | 2017-09-19 10:48 | History and Physical ---
History & Physical Date & Time of Service: Sep 19, 2017 at 10:30 Chief Complaint: Vomiting, Abd Pain, Kidney Pain Primary Care Physician: Noemy Lombardi DO History of Present Illness Source: patient, hospital records, other 32 y/o M Hx HTN, asthma, depression, BL PEs 2010, hepatic steatosis, chronically elevated LFTs, recurrent episodes of RUQ pain with intractable nausea and vomiting. Presented with abdominal pain, nausea and vomiting. A CT chest and abdomen were ordered in the ER which demonstrated extensive BL pulmonary emboli including emboli in the L main artery, RLL artery and multiple segmental and subsegmental branches on either side. The pt had not c/o CP or SOB and the findings were in fact incidental, detected on a CT abdomen in the lung bases. The pt is hemodynamically stable, however, he continued to exhibit nausea and vomiting and is therefore placed on a Heparin drip until the time as to which he can tolerate PO anticoagulation. 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 Family History Asthma Cancer Diabetes mellitus FH: heart disease FHx: lung disease Hypertension Kidney disease Kidney stones Stroke Father following a CVA Mother reports a spontaneous PE in her youth Social History Does not drink or smoke - presently unemployed Smoking Status: Former Smoker Drug Use: none Marital Status: single Housing status: lives with family Occupational Status: unemployed Allergies Coded Allergies: Lactose Intolerance (GI) (Verified Allergy, Intermediate, abdomainal cramps, diarrhea, 09/19/17) Mold (Blue) Cheese (Verified Allergy, Intermediate, rash, 09/19/17) Penicillins (Verified Allergy, Intermediate, ITCHY BLOTCHES, 09/19/17) Amitriptyline (Verified Allergy, Unknown, chest tightness difficulty breathing unable to function, 09/19/17) Naproxen (Verified Allergy, Unknown, ITCHY, 09/19/17) Red Dye (Verified Allergy, Unknown, HIVES, 09/19/17) Home Medications Scheduled Albuterol Hfa (Ventolin Hfa), 2-4 PUFFS INH BID Albuterol Sulf (Proventil 0.083% 2.5MG/3ML), 2.5 MG INH PRN Famotidine (Pepcid), 20 MG PO BID Fluticasone Prop/Salmeterol (Advair Diskus 250/50 60 Dose), 1 PUFF INH BID Metoprolol Tartrate (Lopressor), 25 MG PO BID Pantoprazole (Protonix), 40 MG PO QAM Sertraline (Zoloft), 1 TAB PO BID Sucralfate (Carafate), 10 MG PO QID Scheduled PRN Ondansetron Hcl (Zofran), 4 MG PO Q8H PRN for Nausea Promethazine Hcl (Phenergan), 25 MG PO Q6H PRN for Nausea Review of Systems Constitutional: No fever, No chills, No sweats Eyes: No worsening of vision ENT: No hearing loss, No unusual epistaxis, No nasal symptoms Respiratory: No cough, No sputum, No wheezing Cardiovascular: No chest pain Abdomen: + pain, + nausea, + vomiting Musculoskeletal: No joint pain Genitourinary - Male: No hematuria, No dysuria Neurologic: No memory loss, No paralysis, No weakness Psychiatric: No depression symptoms Endocrine: No fatigue Hematologic / Lymphatic: No abnormal bleeding/bruising Integumentary: No rash Allergic / Immunologic: No environmental allergies Physical Exam Vital Signs Date Time Temp Pulse Resp B/P (MAP) Pulse Ox O2 Delivery O2 Flow Rate FiO2 09/19/17 10:00 106 27 98 Room Air 09/19/17 09:43 139/94 09/19/17 08:02 36.8 125 20 126/92 98 Room Air General Appearance: WD/WN Head: normocephalic Eyes: normal inspection ENT: normal ENT inspection, pharynx normal Neck: supple, no JVD Respiratory/Chest: chest non-tender, lungs clear, normal breath sounds Cardiovascular: + tachycardia, + pertinent finding (Reg, tachy rhythm - no murmurs) Back: normal inspection, no CVA tenderness Extremities/Musculoskelatal: normal inspection, no calf tenderness, normal capillary refill Neurologic/Psych: 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 II-XII nml as tested, no motor/sensory deficits, alert, oriented x 3 Skin: normal color Diagnostics Laboratory Results Results Past 24 Hours Test 09/19/17 08:20 09/19/17 08:24 8/14/18 09:21 Range/Units White Blood Count 13.21 4.8-10.8 K/uL Red Blood Count 5.30 4.7-6.1 M/uL Hemoglobin 14.4 14.0-18.0 g/dL Hematocrit 44.2 42-52 % Mean Corpuscular Volume 83.4 80-100 fL Mean Corpuscular Hemoglobin 27.2 25-34 pg Mean Corpuscular Hemoglobin Concent 32.6 32-36 g/dl Platelet Count 412 130-400 K/uL Mean Platelet Volume 10.5 7.4-10.4 fL Neutrophils (%) (Auto) 83.4 % Lymphocytes (%) (Auto) 9.7 % Monocytes (%) (Auto) 6.5 % Eosinophils (%) (Auto) 0.0 % Basophils (%) (Auto) 0.1 % Neutrophils # (Auto) 11.02 1.4-6.5 K/uL Lymphocytes # (Auto) 1.28 1.2-3.4 K/uL Monocytes # (Auto) 0.86 0.11-0.59 K/uL Eosinophils # (Auto) 0.00 0-0.5 K/uL Basophils # (Auto) 0.01 0-0.2 K/uL RDW Standard Deviation 56.3 36.4-46.3 fL RDW Coefficient of Variation 18.5 11.5-14.5 % Immature Granulocyte % (Auto) 0.3 % Immature Granulocyte # (Auto) 0.04 0.00-0.02 K/uL Prothrombin Time 11.2 9.0-12.0 SECONDS Prothromb Time International Ratio 1.1 0.9-1.1 Activated Partial Thromboplast Time 22.8 21.0-31.0 SECONDS Partial Thromboplastin Ratio 0.9 Sodium Level 134 136-145 mmol/L Potassium Level 3.2 3.5-5.1 mmol/L Chloride Level 93 98-107 mmol/L Carbon Dioxide Level 28 21-32 mmol/L Anion Gap 13.0 24.0 16-25 mmol/L Blood Urea Nitrogen 7 7-18 mg/dl Creatinine 1.28 0.60-1.40 mg/dl Est Creatinine Clear Calc Drug Dose 91.9 ml/min Estimated GFR () 84.1 Estimated GFR (Non- 72.5 BUN/Creatinine Ratio 5.7 10-20 Random Glucose 132 70-99 mg/dl Calcium Level 9.3 8.5-10.1 mg/dl Total Bilirubin 2.7 0.2-1 mg/dl Direct Bilirubin 0.8 0-0.2 mg/dl Aspartate Amino Transf (AST/SGOT) 85 15-37 U/L Alanine Aminotransferase (ALT/SGPT) 65 12-78 U/L Alkaline Phosphatase 181 45-117 U/L Total Creatine Kinase 31 39-308 U/L Creatine Kinase MB < 1.0 0.5-3.6 ng/ml Creatine Kinase MB Ratio 0-3.0 Troponin I < 0.015 0-0.045 ng/ml Total Protein 7.8 6.4-8.2 gm/dl Albumin 3.6 3.4-5.0 gm/dl Lipase 80 73-393 U/L Bedside Hemoglobin 15.6 14.0-18.0 g/dl Bedside Hematocrit 46 42-52 % Bedside Sodium 138 135-144 mEq/L Bedside Potassium 3.2 3.3-5.0 mEq/L Bedside Chloride 90 101-112 mEq/L Bedside Total CO2 29 24-31 mEq/l Bedside Blood Urea Nitrogen 5 7-18 mg/dl Bedside Creatinine 0.9 0.6-1.3 mg/dl Bedside Glucose (other) 141 70-99 mg/dl Bedside Ionized Calcium (To) 0.97 1.12-1.32 mmol/l Diagnostic Radiology CTA: 1. Extensive bilateral pulmonary emboli as above. 2. There is no airspace consolidation or pleural effusion. 3. Mild diffuse peribronchial thickening suggests reactive air disease. 4. Hepatomegaly and severe hepatic steatosis. Impression Assessment and Plan 32 y/o M Hx HTN, asthma, depression, BL PEs 2010, hepatic steatosis, chronically elevated LFTs, recurrent episodes of RUQ pain with intractable nausea and vomiting. Presented with abdominal pain, nausea and vomiting. A CT chest and abdomen were ordered in the ER which demonstrated extensive BL pulmonary emboli including emboli in the L main artery, RLL artery and multiple segmental and subsegmental branches on either side. The pt had not c/o CP or SOB and the findings were in fact incidental, detected on a CT abdomen in the lung bases. The pt is hemodynamically stable, however, he continued to exhibit nausea and vomiting and is therefore placed on a Heparin drip until the time as to which he can tolerate PO anticoagulation. 1) BL PEs - placed on a Heparin drip. Consider converting to PO anticoagulation when NV resolves. This is the second such episode, both of which were seemingly unprovoked so that he will likely need life-long anticoagulation. He will need f/u with a endoscopy support specialist upon DC. 2) Recurrent nausea and vomiting - currently intractable - IVF, antiemetics, clear diet when tolerating 3) Severe hepatic steatosis - the pt follows with a manager [facility] in [place] - we do not appreciate any acute changes regarding his liver at present 4) Depression - cont Sertraline Full code - full-dose Heparin Total time for this admit including review of labs, meds, imaging, records - discussion with pt and ER attending - 38 min Resuscitation Status VTE Prophylaxis Will order VTE Prophylaxis: Yes
[2017-09-19] MEDS ORDERED: ONDANSETRON INJ 2 MG/ML 2 ML VIAL IV PRN (11:00)
[2017-09-19] MEDS ORDERED: METOCLOPRAMIDE HCL INJ 5 MG/ML 2 ML VIAL IV. PRN (11:00)
[2017-09-19] MEDS ORDERED: ACETAMINOPHEN 325 MG TAB PO PRN (11:00)
[2017-09-19] MEDS ORDERED: ZOLPIDEM TARTRATE 5 MG TAB PO PRN (11:00)
--- NOTE | 2017-09-19 11:04 | DIAGNOSTIC IMAGING REPORT ---
ULTRASOUND BILATERAL LOWER EXTREMITY VENOUS CLINICAL HISTORY: Pulmonary embolus. COMPARISON STUDY: No priors. TECHNIQUE: Real-time, grayscale, and color Doppler sonography of the deep veins of the right and left lower extremity was performed from the inguinal crease to the calf. Compression and augmentation were utilized. FINDINGS: There is no sonographic evidence of deep venous thrombosis identified in the right or left lower extremity. The common femoral, superficial femoral, and popliteal veins are patent and normally compressible bilaterally. The greater saphenous vein and the profunda femoris vein at the junction with the common femoral vein are clear in both legs. The visualized calf veins are patent bilaterally. IMPRESSION: There is no sonographic evidence of deep venous thrombosis identified in the right or left lower extremity. Electronically signed by: Compa Ortez M.D. 09/19/2017 11:03 AM Dictated Date/Time: 09/19/2017 11:02 AM
[2017-09-19 11:58] VITALS: BP 139/94; TEMP 36.8; Ht 185.4 cm; Wt 96.0 kg
[2017-09-19 12:00] VITALS: BP 138/105; PULSE 113; TEMP 36.3; O2SAT 95
[2017-09-19] MEDS ORDERED: MAGNESIUM SULFATE 1GM / D5W 100 ML IV ONE (13:00)
[2017-09-19] MEDS: D5NSS + 20MEQ KCL 1,000 ML IV SCH ×2 (13:15→20:29)
[2017-09-19] MEDS: POTASSIUM CHLR 10 MEQ / WTR 100 ML IV SCH ×3 (13:16→15:26)
[2017-09-19] MEDS: HEPARIN 25,000 UNIT/500ML D5W 500 ML IV SCH ×2 (13:30→16:43)
[2017-09-19 15:18] VITALS: BP 132/89; PULSE 91; TEMP 36.6; O2SAT 95
[2017-09-19 15:43] LABS: PTT PATIENT 44.6 SECONDS (21.0-31.0)
[2017-09-19] MEDS ORDERED: HEPARIN IV BOLUS 3,000 UNIT in SYRINGE 0 ML IV ONE (16:15)
[2017-09-19] MEDS: HYDROmorphone INJ 0.5 MG/0.5 ML SYR IV PRN ×2 (18:19→22:07)
[2017-09-19 19:04] VITALS: BP 114/87; PULSE 99; TEMP 36.7; O2SAT 95
[2017-09-19 23:10] VITALS: BP 133/90; PULSE 87; TEMP 36.8; O2SAT 96
[2017-09-19 23:32] LABS: PTT PATIENT 53.7 SECONDS (21.0-31.0)
[2017-09-20] VITALS (8 sets, daily range): BP systolic 119–150; BP diastolic 84–100; PULSE 84–105; TEMP 36.5–36.7; O2SAT 94–99
[2017-09-20] MEDS: HEPARIN 25,000 UNIT/500ML D5W 500 ML IV SCH ×2 (02:04→16:47)
[2017-09-20] MEDS: HYDROmorphone INJ 0.5 MG/0.5 ML SYR IV PRN ×5 (03:04→20:11)
[2017-09-20 07:04] LABS: HEMATOCRIT 39.2 % (42-52); HEMOGLOBIN 12.4 g/dL (14.0-18.0); MEAN CORPUSCULAR HEMOGLOBIN 26.9 pg (25-34); MEAN CORPUSCULAR HGB CONC 31.6 g/dl (32-36); MEAN PLATELET VOLUME 10.8 fL (7.4-10.4); PLATELET COUNT 273 K/uL (130-400); RED CELL DISTRIBUTION WIDTH CV 18.1 % (11.5-14.5); RED CELL DISTRIBUTION WIDTH SD 55.9 fL (36.4-46.3)
[2017-09-20 07:20] LABS: PTT PATIENT 66.7 SECONDS (21.0-31.0)
[2017-09-20 07:36] LABS: CALCIUM 8.3 mg/dl (8.5-10.1); CREATININE 1.02 mg/dl (0.60-1.40); POTASSIUM 3.5 mmol/L (3.5-5.1)
--- NOTE | 2017-09-20 12:58 | Hospitalist Progress Note ---
Hospitalist Progress Note Date of Service Sep 20, 2017. Subjective Pt evaluation today including: conversation w/ patient, conversation w/ family (mother at bedside), physical exam, chart review, lab review, review of inpatient medication list PO Intake: Tolerating regular diet Patient complains of RUQ pain, which is chronic. His nausea and vomiting are improved and he was able to eat a regular diet for breakfast this morning which has so far stayed down. He does complain of some shortness of breath as well as a central chest pressure that is worse with deep breaths. The patient denies fevers, chills, sweats, palpitations, claudication, cough, wheezing, nausea, vomiting, dysuria, hematuria, urinary retention, paralysis, weakness, numbness and tingling. Additional Comments: See HPI for pertinent positives and negatives. All other systems reviewed and negative. Objective Vital Signs Date Time Temp Pulse Resp B/P (MAP) Pulse Ox O2 Delivery O2 Flow Rate FiO2 09/20/17 11:04 36.5 96 20 137/100 (112) 98 Room Air 09/20/17 08:00 Room Air 09/20/17 07:18 36.6 84 18 127/95 (106) 97 Room Air 09/20/17 04:28 36.7 09/20/17 04:24 36.7 88 18 150/96 (114) 94 Room Air 09/20/17 00:00 Room Air 09/19/17 23:10 36.8 87 17 133/90 (104) 96 Room Air 09/19/17 19:04 36.7 99 18 114/87 (96) 95 Room Air 09/19/17 16:00 Room Air 09/19/17 15:18 36.6 91 20 132/89 (103) 95 Room Air Physical Exam Notes: General appearance: Well-developed, well-nourished, no apparent distress Head: Normocephalic, atraumatic Eyes: Normal inspection, PERRL, EOMI ENT: Normal ENT inspection, hearing grossly normal, pharynx normal Neck: Supple, no JVD, trachea midline Respiratory/Chest: Lungs clear to auscultation, normal breath sounds, no respiratory distress Cardiovascular: Regular rate & rhythm, no gallop, no murmur Abdomen/GI: +RUQ TTP. Normal bowel sounds, soft Extremities/Musculoskeletal: Normal inspection, no calf tenderness, no pedal edema Neurological/Psych: Alert, normal mood/affect, oriented x 3 Skin: Normal color, warm/dry, no rash Laboratory Results Last 24 Hours Test 09/19/17 15:15 09/19/17 22:54 09/20/17 06:45 Activated Partial Thromboplast Time 44.6 SECONDS 53.7 SECONDS 66.7 SECONDS Partial Thromboplastin Ratio 1.7 2.1 2.6 White Blood Count 7.80 K/uL Red Blood Count 4.61 M/uL Hemoglobin 12.4 g/dL Hematocrit 39.2 % Mean Corpuscular Volume 85.0 fL Mean Corpuscular Hemoglobin 26.9 pg Mean Corpuscular Hemoglobin Concent 31.6 g/dl RDW Standard Deviation 55.9 fL RDW Coefficient of Variation 18.1 % Platelet Count 273 K/uL Mean Platelet Volume 10.8 fL Sodium Level 135 mmol/L Potassium Level 3.5 mmol/L Chloride Level 96 mmol/L Carbon Dioxide Level 30 mmol/L Anion Gap 9.0 mmol/L Blood Urea Nitrogen 5 mg/dl Creatinine 1.02 mg/dl Est Creatinine Clear Calc Drug Dose 115.3 ml/min Estimated GFR () 110.6 Estimated GFR (Non- 95.5 BUN/Creatinine Ratio 5.1 Random Glucose 89 mg/dl Calcium Level 8.3 mg/dl Magnesium Level 1.8 mg/dl Assessment and Plan 32 y/o male with a history of HTN, asthma, depression, fatty liver and hepatomegaly, chronic RUQ and recurrent N/V, and h/o bilateral PEs in 2010 who presents with intractable nausea and vomiting. Incidentally found to have extensive bilateral PEs. Bilateral PEs--stable -Admit to telemetry. No acute events overnight. Pt in sinus rhythm with HR 80s -90s -Hemodynamically stable, tachycardia resolved -2nd episode of unprovoked PE, will require lifelong anticoagulation -Elder checking NOACs, continue heparin drip for now. Pt used Coumadin last time -Hypercoagulable panel pending, can f/u with PCP Intractable nausea and vomiting--received Zofran and Reglan in ED, now resolved -Tolerating regular diet -D/C IVF -Resume home oral meds. Reconciled med list via outpatient records Severe hepatic steatosis and hepatomegaly -14 mm hyperdense/hypervascular lesion in the right lobe of the liver seen on CT , unchanged from previous studies -Sees hepatology in [place], confirmed no cancer present -LFTs stable at this time HTN -Resume Lopressor 25 mg PO BID Depression -Resume Zoloft 100 mg PO qd Asthma--stable, no acute exacerbation although reports mild SOB which may relate to acute PEs -Resume Advair BID and albuterol inhaler q12h prn SOB/wheezing Chronic RUQ pain, GERD -Resume Carafate 10 mg PO QID, Pepcid 20 mg PO BID, Protonix 40 mg PO qd -Pt given Dilaudid per admitting physician but would not continue opioids at discharge as pt has documented drug seeking behavior per both EMR and outpatient records DVT prophylaxis -Heparin drip Code Status -Level I, FULL RESUSCITATION STATUS
[2017-09-20] MEDS ORDERED: ALBUTEROL HFA 8 GM INHALER INH PRN (13:00)
[2017-09-20] MEDS: SUCRALFATE 1 GM/10 ML UDC PO SCH ×3 (13:46→20:08)
[2017-09-20 14:35] LABS: ALBUMIN 3.1 gm/dl (3.4-5.0); TOTAL PROTEIN 6.6 gm/dl (6.4-8.2)
[2017-09-20] MEDS: WARFARIN SOD 5 MG TAB PO SCH (16:07)
[2017-09-20] MEDS: FLUTICASONE/SALMETEROL 250/50 (ADVAIR) 14 PUFF/1 INHALER INH SCH (20:08)
[2017-09-20] MEDS: METOPROLOL TARTRATE 25 MG TAB PO SCH (20:09)
[2017-09-20] MEDS: FAMOTIDINE 20 MG TAB PO SCH (20:09)
[2017-09-21] MEDS: HYDROmorphone INJ 0.5 MG/0.5 ML SYR IV PRN ×5 (00:28→15:59)
[2017-09-21 03:53] VITALS: BP 139/90; PULSE 85; TEMP 36.7; O2SAT 97
[2017-09-21 06:24] LABS: HEMATOCRIT 34.1 % (42-52); HEMOGLOBIN 10.7 g/dL (14.0-18.0); MEAN CELL VOLUME 85.5 fL (80-100); MEAN CORPUSCULAR HEMOGLOBIN 26.8 pg (25-34); MEAN CORPUSCULAR HGB CONC 31.4 g/dl (32-36); MEAN PLATELET VOLUME 10.4 fL (7.4-10.4); PLATELET COUNT 203 K/uL (130-400); RED CELL DISTRIBUTION WIDTH CV 18.3 % (11.5-14.5); RED CELL DISTRIBUTION WIDTH SD 56.4 fL (36.4-46.3)
[2017-09-21 06:42] LABS: INR 1.1 (0.9-1.1)
[2017-09-21 06:46] LABS: PTT PATIENT 56.9 SECONDS (21.0-31.0)
[2017-09-21 07:02] LABS: CALCIUM 8.2 mg/dl (8.5-10.1); CREATININE 0.92 mg/dl (0.60-1.40); POTASSIUM 3.3 mmol/L (3.5-5.1)
[2017-09-21 07:11] VITALS: BP 117/72; PULSE 82; TEMP 36.7; O2SAT 99
[2017-09-21] MEDS ORDERED: POTASSIUM CHLORIDE 20 MEQ TABCR PO ONE (08:15)
[2017-09-21] MEDS: METOPROLOL TARTRATE 25 MG TAB PO SCH (08:26)
[2017-09-21] MEDS: FAMOTIDINE 20 MG TAB PO SCH (08:26)
[2017-09-21] MEDS: FLUTICASONE/SALMETEROL 250/50 (ADVAIR) 14 PUFF/1 INHALER INH SCH (08:27)
[2017-09-21] MEDS: SUCRALFATE 1 GM/10 ML UDC PO SCH ×2 (08:27→12:19)
[2017-09-21] MEDS: HEPARIN 25,000 UNIT/500ML D5W 500 ML IV SCH (08:30)
[2017-09-21] MEDS ORDERED: SERTRALINE HCL 100 MG TAB PO SCH (09:00)
[2017-09-21] MEDS ORDERED: PANTOprazole SOD 40 MG TAB PO SCH (09:00)
[2017-09-21] MEDS ORDERED: ULT/50 PO (12:53)
[2017-09-21] MEDS ORDERED: LVNIS100 SC (12:53)
[2017-09-21] MEDS ORDERED: CMD5 PO (12:53)
--- NOTE | 2017-09-21 14:46 | Discharge Instructions ---
Discharge Instructions Date of Service Sep 21, 2017. Admission Reason for Admission: Intractable Nausea And Vomiting, Pe Discharge Discharge Diagnosis / Problem: (1) Pulmonary embolism VTE Date & Time Date of VTE Diagnosis: Sep 19, 2017 (0942) Time of VTE Diagnosis: 09:42 Discharge Goals Goal(s): Decrease discomfort, Diagnostic testing, Therapeutic intervention Activity Recommendations Activity Limitations: resume your previous activity . Instructions / Follow-Up Instructions / Follow-Up You were admitted to the hospital after being incidentally found to have bilateral pulmonary emboli, or clots in the lungs. As this is now the second episode of unprovoked PE, it is recommended that you stay on anticoagulation ( blood thinners) lifelong. There are blood tests pending to check to see if you have any disorders that make you more prone to clotting. You are now medically stable for discharge. Medications: *Please take Lovenox 100 mg subcutaneously every 12 hours for 5 days. Your first dose was given at 4 pm at the hospital. Please take your next dose right when you wake up at 7 am tomorrow. Then take the following dose at 9 pm at night. From then on, you can follow a 9 am/9 pm schedule. *Please take warfarin 5 mg daily. Take this in addition to the Lovenox injections. *You may take tramadol 50 mg every 4 hours as needed for pain. *Continue your home medications as prescribed. Follow up: *You have been scheduled to follow up with your primary care provider on September 27 at 10 am. *You have been given a script for a blood test called an INR to monitor your warfarin. Please take this to a lab or hospital to get drawn on Monday or Monday. These results will be faxed to your primary care provider who can then adjust your warfarin as needed. *You were also incidentally found to have a urinary tract infection, but as you are not having symptoms and the bacteria found in culture is part of your normal skin iris, no antibiotics were started at this time. If you begin to develop symptoms such as increased urinary frequency, burning/pain with urination, blood in the urine, or fevers and chills, please call your primary care provider who can then initiate antibiotics at that time. Medication Instructions: * Warfarin is a medicine prescribed to prevent blood clots * Warfarin will thin your blood and help prevent new clots * Take your medications exactly as directed * Never skip a dose. Never take a double dose. If you miss a dose, take it as soon as you remember * It is important for your doctor to monitor your prothrombin time (PT). This is a lab test * Keep your appointment for lab tests Risk of Adverse Drug Reactions and Interactions: * Warfarin increases your risk of bleeding * The food you eat and other medications you take can affect how Warfarin works in your body * Ask your doctor about daily aspirin therapy * It is very important to talk with your doctor about all of the other medicines , antibiotics, vitamins or herbal products that you are taking * All of your medication must be approved by your doctor, including new medicines, as well as medicines you have taken before you started taking Warfarin Diet: * In order for Warfarin to work properly, it is important to keep your intake of Vitamin K as consistent as possible * You should avoid any sudden change in Vitamin K intake * Report any significant changes in your diet or weight to your doctor Call your Primary Care doctor if you experience any of the following: * Swelling or Pain in your leg * Sudden, continuous pain deep in a muscle * Pain that worsens when you are active or when you stand still for a long time * Chest Pain * Sudden Shortness of Breath * Rapid or pounding heart beat * Fainting * Dizziness * Cough with blood or bloody sputum * Sweating more than normal * Bruises * Heavy or uncontrolled bleeding * Blood in your urine, stool or vomit * Black or tarry stools Caring for Your Self at Home: * Avoid sitting, standing or lying down for long periods without moving your legs and feet * When traveling by car, stop to get out and move around at least once every 3 hours * On long airplane, train or bus rides, get up and move around when possible * If you can't get up, wiggle your toes and tighten your calves to keep your blood moving Follow Up: It is important for you to keep your follow up appointments with your medical provider. Current Hospital Diet Patient's current hospital diet: Regular Diet Discharge Diet Recommended Diet: Regular Diet Pending Studies Studies pending at discharge: yes List of pending studies: Hypercoagulable studies Laboratory Results Hemoglobin A1c Test 08/17/17 10:12 Range/Units Estimated Average Glucose 82 mg/dl Hemoglobin A1c 4.5 4.5-5.6 % Medical Emergencies . Who to Call and When: Medical Emergencies: If at any time you feel your situation is an emergency, please call 911 immediately. . Non-Emergent Contact Non-Emergency issues call your: Primary Care Provider Call Non-Emergent contact if: you have a fever, you have any medication questions . Past History Medical & Surgical History: (1) Pulmonary embolism . "Provider Documentation" section prepared by Viry Peguero. . VTE Core Measure Reason no anticoag overlap I/P: Treatment provided - N/A Reason no anticoag overlap @DC: Treatment provided - N/A [place] Drug Monitoring Program Search Results: patient reviewed within database, see additional documentation Drug Monitoring Findings: Patient has multitudes of narcotic prescriptions from 12 different prescribers in from November 2016 to present. Locations range from [facility] to [place]. All but 2 of these prescriptions are short term courses
--- NOTE | 2017-09-21 14:58 | Discharge Summary ---
Discharge Summary Date of Service Sep 21, 2017. Discharge Summary Admission Date: Sep 19, 2017 at 10:50 Discharge Date: Sep 21, 2017 Discharge Disposition: Home Principal Diagnosis: Bilateral pulmonary emboli Problems/Secondary Diagnoses: HTN, asthma, depression, fatty liver and hepatomegaly, chronic RUQ and recurrent N/V, h/o bilateral PEs Procedures: CT SCAN OF THE ABDOMEN AND PELVIS WITH IV CONTRAST CLINICAL HISTORY: Generalized abdominal pain. Vomiting. COMPARISON STUDY: Abdominal CT dated 04/27/2017 and 04/24/2016. TECHNIQUE: Following the IV administration of 92 cc of Optiray 320, CT scan of the abdomen and pelvis is performed from the lung bases to the proximal femora. Images are reviewed in the axial, sagittal, and coronal planes. IV contrast was administered without complication. A dose lowering technique was utilized adhering to the principles of ALARA. CT DOSE: 536.83 mGy.cm FINDINGS: Lung bases: There are extensive bilateral lower lobe pulmonary emboli. The heart is normal in size and without pericardial effusion. The lung bases are clear. A moderate hiatal hernia is observed. Gynecomastia is noted. Liver: The contrast-enhanced liver is enlarged, measuring 21.6 cm in length. The liver demonstrates diffusely diminished attenuation consistent with severe hepatic steatosis. There is no intrahepatic biliary ductal dilatation. The hepatic veins and portal veins are patent. A 14 mm hypervascular/hyperdense lesion is again seen in the right hepatic lobe on image #105. Gallbladder: Surgically absent noting clips in the gallbladder fossa. Spleen: Normal in size and attenuation. Pancreas: Unremarkable. Adrenal glands: Unremarkable. Kidneys: The contrast enhanced kidneys are normal in size and without hydronephrosis. The kidneys enhance symmetrically. Small bilateral nonobstructing renal calculi measuring up to 3 mm. Abdominal vasculature: The abdominal aorta is normal in course and caliber. Bowel: The small bowel and colon are normal in course and caliber. The appendix is not identified and reported surgically absent. Peritoneum: There is no intraperitoneal free air or abdominal ascites. There is a fat-containing umbilical hernia. Lymphadenopathy: None. Pelvic viscera: The bladder, prostate, and seminal vesicles are normal as visualized. Skeletal structures: No lytic or blastic lesions are seen. There are mild compression deformities of T9, T10, and T12. IMPRESSION: 1. Extensive bilateral pulmonary emboli are identified at the lung bases. 2. There are no acute infectious or inflammatory findings in the abdomen or pelvis. 3. Hepatomegaly and severe hepatic steatosis. 4. Small bilateral nonobstructing renal calculi. 5. Hiatal hernia. 6. A 14 mm hyperdense/hypervascular lesion in the right lobe of the liver is unchanged. This is incompletely characterized but likely represents a hemangioma. This has not significantly changed from prior studies. 7. Additional findings as above. CT ANGIOGRAM OF THE CHEST CLINICAL HISTORY: Dyspnea. Nausea. Pulmonary emboli seen on today's abdominal CT. COMPARISON STUDY: Abdominal CT performed the same day 09/19/2017. Chest x-ray dated 07/27/2017. TECHNIQUE: Following the IV administration of 95 cc of Optiray 320, CT angiogram of the chest was performed from the upper abdomen to the thoracic inlet utilizing the pulmonary embolus protocol. Images are reviewed in the axial, sagittal, and coronal planes. 3-D MIPS images are created and assessed. IV contrast was administered without complication. A dose lowering technique was utilized adhering to the principles of ALARA. CT DOSE: 398.96 mGy.cm FINDINGS: Thyroid: Imaged portions of the thyroid gland are normal in size and attenuation. Thoracic aorta: The thoracic aorta is normal in caliber and demonstrates standard 3-vessel arch anatomy. No dissection is seen. Pulmonary vasculature: The pulmonary trunk is normal in caliber. There is pulmonary was identified within the right lower lobe pulmonary artery. This extends into segmental and subsegmental branches. Segmental and subsegmental pulmonary emboli are also seen within branches of the right upper and right lower lobe pulmonary arteries. On the left, there is pulmonary embolus seen within the distal left main pulmonary artery. This extends into the lingular branches into segmental and subsegmental branches. Pulmonary emboli are also seen within segmental and subsegmental branches of the left lower lobe. Heart: The heart is normal in size and without pericardial effusion. Lungs and pleural spaces: Mild emphysematous change is suggested. There is no airspace consolidation or pleural effusion. Mild diffuse peribronchial thickening suggests reactive airway disease. The trachea and central airways are clear. Mediastinum: There is no mediastinal lymphadenopathy. Brit: Clear. Axillae: There is no axillary lymphadenopathy. Upper abdomen: The liver is enlarged and there is severe hepatic steatosis. A 14 mm hypervascular focus in the right lobe of the liver is unchanged. A small to moderate hiatal hernia is observed. Skeletal structures: No lytic or blastic bony lesions are seen. Mild superior endplate compression deformities are seen at all thoracic levels between T2 and T12. Soft tissues: Gynecomastia is noted. IMPRESSION: 1. Extensive bilateral pulmonary emboli as above. 2. There is no airspace consolidation or pleural effusion. 3. Mild diffuse peribronchial thickening suggests reactive air disease. Clinical correlation will be required. 4. Hepatomegaly and severe hepatic steatosis. 5. Additional findings as above. ULTRASOUND BILATERAL LOWER EXTREMITY VENOUS CLINICAL HISTORY: Pulmonary embolus. COMPARISON STUDY: No priors. TECHNIQUE: Real-time, grayscale, and color Doppler sonography of the deep veins of the right and left lower extremity was performed from the inguinal crease to the calf. Compression and augmentation were utilized. FINDINGS: There is no sonographic evidence of deep venous thrombosis identified in the right or left lower extremity. The common femoral, superficial femoral, and popliteal veins are patent and normally compressible bilaterally. The greater saphenous vein and the profunda femoris vein at the junction with the common femoral vein are clear in both legs. The visualized calf veins are patent bilaterally. IMPRESSION: There is no sonographic evidence of deep venous thrombosis identified in the right or left lower extremity. Medication Reconciliation New Medications: Enoxaparin (Enoxaparin Sodium) 100 Mg/Ml Inj 100 MG SC Q12H for 5 Days, #10 DOSE Tramadol Hcl (Ultram) 50 Mg Tab 50 MG PO Q4H PRN for Pain for 3 Days, #12 TAB Warfarin Sod (Coumadin) 5 Mg Tab 5 MG PO DAILY@16 for 30 Days, #30 TAB Continued Medications: Albuterol Hfa (Ventolin Hfa) 200 Puffs/00484 Mcg Aers 2 PUFFS INH BID PRN for SOB/Wheezing Albuterol Sulf (Proventil 0.083% 2.5MG/3ML) 2.5 Mg/3 Ml Nebu 2.5 MG INH Q4H PRN for SOB/Wheezing Famotidine (Pepcid) 20 Mg Tab 20 MG PO BID, TAB Fluticasone Prop/Salmeterol (Advair Diskus 250/50 60 Dose) 1 Ea Aerp 2 PUFF INH BID Metoprolol Tartrate (Lopressor) 25 Mg Tab 25 MG PO BID for 30 Days, #60 TAB Ondansetron Hcl (Zofran) 4 Mg Tab 4 MG PO Q8H PRN for Nausea, #12 TAB Pantoprazole (Protonix) 40 Mg Tab 40 MG PO QAM Promethazine Hcl (Phenergan) 25 Mg Tab 25 MG PO Q6H PRN for Nausea, TAB Sertraline (Zoloft) 100 Mg Tab 1 TAB PO DAILY for 90 Days, #90 TAB 3 Refills Sucralfate (Carafate) 1 Gm/10 Ml Susp 10 MG PO QID Discharge Exam Patient complains of his chronic RUQ pain. His nausea and vomiting have resolved and he is tolerating a regular diet. The patient denies fevers, chills , sweats, chest pain, palpitations, claudication, cough, wheezing, shortness of breath, nausea, vomiting, dysuria, hematuria, urinary retention, paralysis, weakness, numbness and tingling. Constitutional: No fever, No chills, No sweats Eyes: No worsening of vision, No eye pain, No diplopia ENT: No hearing loss, No nasal symptoms, No trouble swallowing Respiratory: No cough, No wheezing, No shortness of breath Cardiovascular: No chest pain, No claudication, No palpitations Abdomen: +Chronic RUQ pain. No nausea, No vomiting Musculoskeletal: No joint pain, No muscle pain, No swelling Genitourinary - Male: No dysuria, No urinary retention, No hematuria Neurologic: No paralysis, No weakness, No numbness/tingling Integumentary: No rash, No itch, No color change General appearance: Well-developed, well-nourished, no apparent distress Head: Normocephalic, atraumatic Eyes: Normal inspection, PERRL, EOMI ENT: Normal ENT inspection, hearing grossly normal, pharynx normal Neck: Supple, no JVD, trachea midline Respiratory/Chest: Lungs clear to auscultation, normal breath sounds, no respiratory distress Cardiovascular: Regular rate & rhythm, no gallop, no murmur Abdomen/GI: +RUQ TTP. Normal bowel sounds, soft Extremities/Musculoskeletal: Normal inspection, no calf tenderness, no pedal edema Neurological/Psych: Alert, normal mood/affect, oriented x 3 Skin: Normal color, warm/dry, no rash Hospital Course 32 y/o male with a history of HTN, asthma, depression, fatty liver and hepatomegaly, chronic RUQ and recurrent N/V, and h/o bilateral PEs in 2010 who presents with intractable nausea and vomiting. Incidentally found to have extensive bilateral PEs. Bilateral PEs--stable -Admit to telemetry. No acute events overnight. Pt in sinus rhythm with HR 70s -90s -Hemodynamically stable, tachycardia resolved -2nd episode of unprovoked PE, will require lifelong anticoagulation -Due to liver disease, opted to give patient Lovenox/warfarin bridge -Lovenox 1 mg/kg (100 mg) SC q12h x 5 days, along with warfarin 5 mg PO qd -Script for INR check in a few days given, results to be faxed to PCP so can adjust dose if needed -Hypercoagulable panel pending, can f/u with PCP Intractable nausea and vomiting--received Zofran and Reglan in ED, now resolved -Tolerating regular diet -D/C IVF -Resume home oral meds. Reconciled med list via outpatient records Asymptomatic bacteriuria -Pt does not show any signs or symptoms of infection -Incidentally found to have coag neg staph in urine culture -Held off on abx at this time as there is no evidence abx improves outcomes in his case (pt not immunocompromised/transplant pt, not a female, not having a urological procedure), rather more likely to cause adverse outcomes at this time -Instructed that if he becomes symptomatic to contact PCP for possible abx at that time, would recommend Keflex Severe hepatic steatosis and hepatomegaly--stable -14 mm hyperdense/hypervascular lesion in the right lobe of the liver seen on CT , unchanged from previous studies -Sees hepatology in [place], confirmed no cancer present -LFTs stable at this time HTN--stable -Resume Lopressor 25 mg PO BID Depression -Resume Zoloft 100 mg PO qd Asthma--stable, no acute exacerbation -Resume Advair BID and albuterol inhaler q12h prn SOB/wheezing Chronic RUQ pain, GERD--stable -Resume Carafate 10 mg PO QID, Pepcid 20 mg PO BID, Protonix 40 mg PO qd -Pt consistently reports 8-10 pain, however outpt records and EMR both state drug seeking behavior and malingering. When observing pt from hallway, he looks comfortable and restful -Checked pt in PDMP. Pt has had 14 controlled substance scripts from 12 providers all across [place] state from November 2016 to now. Do not feel comfortable providing oxycodone at discharge. PCP does not recommend giving controlled substances, however pt does have new extensive bilateral PEs. -D/C with 3 day supply of tramadol DVT prophylaxis -Lovenox/warfarin Code Status -Level I, FULL RESUSCITATION STATUS Total Time Spent: Greater than 30 minutes This includes examination of the patient, discharge planning, medication reconciliation, and communication with other providers. Discharge Instructions Please refer to the electronic Patient Visit Report (Discharge Instructions) for additional information. Follow-Up PCP Additional Copies To Gertrude Lee .JEANINEC
[2017-09-21 15:02] VITALS: BP 126/87; PULSE 71; TEMP 37; O2SAT 96
[2017-09-21 15:08] VITALS: BP 126/87; PULSE 71; TEMP 37; O2SAT 96
[2017-09-21] MEDS: WARFARIN SOD 5 MG TAB PO SCH (15:59)
[2017-09-21] MEDS ORDERED: ENOXAPARIN 100 MG/1ML SYR SQ SCH (16:00)
[2017-09-24 17:30] LABS: ANTICARDIOLIPID AB IGA <11 APL (< = 11)
== END 2017-09-21 16:37 | disposition home or self-care (01) | DRG 176 ==
LOC: C.EDB 07:59 → C.MED 10:50 → ENRESERV 11:15
PROVIDERS: ADMIT Internal Medicine; ATTEND Internal Medicine
DX: I26.99 Other pulmonary embolism without acute cor pulmonale (principal); R11.2 Nausea with vomiting, unspecified; R82.71 Bacteriuria; K76.0 Fatty (change of) liver, not elsewhere classified; I10 Essential (primary) hypertension; F32.9 Major depressive disorder, single episode, unspecified; J45.909 Unspecified asthma, uncomplicated; G89.29 Other chronic pain; R10.11 Right upper quadrant pain; K21.9 Gastro-esophageal reflux disease without esophagitis; Z86.711 Personal history of pulmonary embolism; Z87.891 Personal history of nicotine dependence; Z79.899 Other long term (current) drug therapy; Z88.0 Allergy status to penicillin; Z88.6 Allergy status to analgesic agent; Z88.8 Allergy status to other drugs, medicaments and biological substances; Z91.048 Other nonmedicinal substance allergy status; Z82.49 Family history of ischemic heart disease and other diseases of the circulatory system

== ENCOUNTER 2017-09-25 10:29 | Emergency (ER) | payer OTHER ==
[~2017-09-25] VITALS: Ht 185.4 cm; Wt 99.8 kg
[~2017-09-25 10:29] MED LIST changes: +CMD5 PO; +LVNIS100 SC; -ONDA8TAB62 SL; -OXYC-737 PO; +ULT/50 PO
[2017-09-25 10:58] VITALS: TEMP 37; Ht 185.4 cm; Wt 99.8 kg
[2017-09-25] MEDS ORDERED: SUCRALFATE 1 GM TAB PO STA (11:03)
[2017-09-25] MEDS ORDERED: GI COCKTAIL PO STA (11:03)
[2017-09-25] MEDS ORDERED: FAMOTIDINE 20 MG TAB PO STA (11:03)
--- NOTE | 2017-09-25 11:23 | DIAGNOSTIC IMAGING REPORT ---
CHEST ONE VIEW PORTABLE CLINICAL HISTORY: Atypical chest pain COMPARISON STUDY: 07/27/2017 FINDINGS: The cardiac and mediastinal contours are normal. There is no evidence of focal pulmonary consolidation. There is no evidence of failure. No pleural effusions are visualized.[ IMPRESSION: No active disease in the chest. Electronically signed by: Ananda Jones M.D. 09/25/2017 11:22 AM Dictated Date/Time: 09/25/2017 11:22 AM
[2017-09-25] MEDS ORDERED: ALUMINUM/MAGNESIUM SUSP 30 ML UDC ONE (11:27)
[2017-09-25] MEDS ORDERED: LIDOCAINE HCL 2% VISC SOLN 20 ML UDC ONE (11:28)
[2017-09-25 11:40] LABS: ALBUMIN 2.9 gm/dl (3.4-5.0); ALKALINE PHOSPHATASE 121 U/L (45-117); ALT/SGPT 67 U/L (12-78); AST/SGOT 93 U/L (15-37); BLOOD UREA NITROGEN 8 mg/dl (7-18); CALCIUM 8.5 mg/dl (8.5-10.1); CARBON DIOXIDE 24 mmol/L (21-32); CKMB < 1.0 ng/ml (0.5-3.6); CREATININE 0.78 mg/dl (0.60-1.40); GLUCOSE 94 mg/dl (70-99); LIPASE 144 U/L (73-393); POTASSIUM 3.3 mmol/L (3.5-5.1); SODIUM 141 mmol/L (136-145); TOTAL PROTEIN 6.7 gm/dl (6.4-8.2)
[2017-09-25 11:59] LABS: BASO % 0.4 %; BASO ABS # 0.02 K/uL (0-0.2); EOS % 1.4 %; EOS ABS # 0.07 K/uL (0-0.5); HEMATOCRIT 37.6 % (42-52); HEMOGLOBIN 11.8 g/dL (14.0-18.0); IG# 0.02 K/uL (0.00-0.02); LYMPH % 20.8 %; LYMPH ABS # 1.07 K/uL (1.2-3.4); MEAN CELL VOLUME 85.1 fL (80-100); MEAN CORPUSCULAR HEMOGLOBIN 26.7 pg (25-34); MEAN CORPUSCULAR HGB CONC 31.4 g/dl (32-36); MEAN PLATELET VOLUME 10.2 fL (7.4-10.4); MONO % 9.3 %; MONO ABS # 0.48 K/uL (0.11-0.59); NEUT % 67.7 %; NEUT ABS # 3.49 K/uL (1.4-6.5); PLATELET COUNT 245 K/uL (130-400); RED CELL DISTRIBUTION WIDTH CV 18.8 % (11.5-14.5); RED CELL DISTRIBUTION WIDTH SD 59.3 fL (36.4-46.3); WHITE BLOOD COUNT 5.15 K/uL (4.8-10.8)
[2017-09-25 12:01] LABS: INR 4.6 (0.9-1.1)
[2017-09-25] MEDS ORDERED: ACETAMINOPHEN 500 MG TAB PO STA (12:05)
[2017-09-25] MEDS ORDERED: ONDANSETRON INJ 2 MG/ML 2 ML VIAL IV STA (12:57)
[2017-09-25] MEDS ORDERED: MoRPHine SULFATE 10 MG/ML CARP/VIAL IV STA (12:57)
[2017-09-25] MEDS ORDERED: OPTIRAY 320 IV PRN (13:45)
[2017-09-25] MEDS ORDERED: SODIUM CHLORIDE 0.9% 1000ML 1,000 ML IV STA (13:55)
--- NOTE | 2017-09-25 14:54 | DIAGNOSTIC IMAGING REPORT ---
CHEST COMBO ANGIO DISSECTION CLINICAL HISTORY: Atypical chest pain. Possible aortic dissection. COMPARISON STUDY: September 19, 2017 FINDINGS: A dose reduction technique was utilized according to the principles of ALARA. Unenhanced images were obtained through the chest. The patient was then scanned in a dynamic helical fashion during intravenous administration 119 cc of Optiray 320. MIP imaging was performed. Unenhanced images reveal no evidence of acute aortic hematoma. Postcontrast images reveal no thyroid masses. There is no evidence of thoracic aortic aneurysm. There is no evidence of thoracic aortic dissection. There are persistent bilateral pulmonary filling defects consistent with bilateral pulmonary embolism. These remain similar to the preceding study. No definite new emboli are delineated. There are no pathologically enlarged axillary mediastinal or hilar lymph nodes. There is borderline esophageal wall thickening similar to the preceding study. There is severe hepatic steatosis. There is a stable 13 mm right lobe hepatic nodule. There are no pleural effusions. There is no acute parenchymal consolidation. There is stable mild diffuse peribronchial thickening. There is bilateral gynecomastia IMPRESSION: 1. No evidence of thoracic aortic aneurysm or thoracic aortic dissection 2. Bilateral pulmonary embolism similar to the preceding study 3. Stable mild diffuse peribronchial thickening 4. Severe hepatic steatosis. Stable 13 mm right hepatic lobe nodule Electronically signed by: Ananda Jones M.D. 09/25/2017 2:53 PM Dictated Date/Time: 09/25/2017 2:45 PM
--- NOTE | 2017-09-25 15:22 | EMERGENCY ROOM VISIT NOTE ---
History First contact with patient: 10:54 Chief Complaint: CHEST PAIN Stated Complaint: CHEST PAIN Nursing Triage Summary: patient with midsternal CP when he woke this morning. patient was dx on with bilateral PE's. taking coumadin and bridging with Lovenox injections at home. History of Present Illness The patient is a 32 year old male who presents to the Emergency Room with complaints of chest pain. The patient reports he was just diagnosed with PEs and was placed on Coumadin as well as Lovenox on . He has been taking his Lovenox and has not missed any doses. He is also taking his Coumadin. Nothing has made the chest pain any better. It has been ongoing since Monday night. The patient describes the chest pain as a saw going down his chest wall. He does not appear to be in any acute distress and is not vomiting. He denies any abdominal pain. Review of Systems See HPI for pertinent positives & negatives. A total of 10 systems reviewed and were otherwise negative. Past Medical/Surgical History Medical Problems: (1) Abdominal pain (2) Asthma (3) Bilateral flank pain (4) Brain bleed (5) Broken back (6) Hepatitis (7) Intractable nausea and vomiting (8) Malingerer (9) Postconcussive syndrome (10) PTSD (post-traumatic stress disorder) (11) Vomiting Social History Problems: (1) Drug-seeking behavior Family History Asthma Cancer Diabetes mellitus FH: heart disease FHx: lung disease Hypertension Kidney disease Kidney stones Stroke Social History Smoking Status: Never Smoker Alcohol Use: none Drug Use: none Marital Status: single Housing Status: lives with family Occupation Status: unemployed Current/Historical Medications Scheduled Enoxaparin (Enoxaparin Sodium), 100 MG SC Q12H Famotidine (Pepcid), 20 MG PO BID Fluticasone Prop/Salmeterol (Advair Diskus 250/50 60 Dose), 2 PUFF INH BID Metoprolol Tartrate (Lopressor), 25 MG PO BID Pantoprazole (Protonix), 40 MG PO QAM Sertraline (Zoloft), 1 TAB PO DAILY Sucralfate (Carafate), 10 MG PO QID Warfarin Sod (Coumadin), 5 MG PO DAILY@16 Scheduled PRN Albuterol Hfa (Ventolin Hfa), 2 PUFFS INH BID PRN for SOB/Wheezing Albuterol Sulf (Proventil 0.083% 2.5MG/3ML), 2.5 MG INH Q4H PRN for SOB/Wheezing Ondansetron Hcl (Zofran), 4 MG PO Q8H PRN for Nausea Promethazine Hcl (Phenergan), 25 MG PO Q6H PRN for Nausea Physical Exam Vital Signs Date Time Temp Pulse Resp B/P (MAP) Pulse Ox O2 Delivery O2 Flow Rate FiO2 09/25/17 16:20 86 16 150/111 98 09/25/17 16:14 150/111 09/25/17 16:14 150/111 09/25/17 16:12 83 13 09/25/17 16:12 83 13 09/25/17 16:01 157/114 09/25/17 16:01 157/114 09/25/17 15:57 85 19 09/25/17 15:57 85 19 09/25/17 15:42 83 15 09/25/17 15:42 83 15 09/25/17 15:31 151/109 09/25/17 15:31 151/109 09/25/17 15:27 81 16 09/25/17 15:27 81 16 09/25/17 15:12 100 21 09/25/17 15:12 100 21 09/25/17 15:01 143/109 09/25/17 15:01 143/109 09/25/17 14:57 83 13 09/25/17 14:57 83 13 09/25/17 14:52 136/95 99 Room Air 09/25/17 14:00 26 09/25/17 13:42 82 15 150/101 98 Room Air 09/25/17 13:13 76 09/25/17 12:21 99 16 150/109 100 Room Air 09/25/17 11:36 Room Air 09/25/17 11:10 Room Air 09/25/17 10:58 37.0 97 20 150/103 98 Room Air 09/25/17 10:58 Room Air 09/25/17 10:37 90 Physical Exam GENERAL: Awake, alert, well-appearing, in no acute distress HENT: Normocephalic, atraumatic. Oropharynx unremarkable. EYES: Normal conjunctiva. Sclera non-icteric. NECK: Supple. No nuchal rigidity. FROM. No JVD. RESPIRATORY: Clear to auscultation. CARDIAC: Regular rate, normal rhythm. Extremities warm and well perfused. Pulses equal. ABDOMEN: Soft, non-distended. No tenderness to palpation. No rebound or guarding. No masses. RECTAL: Deferred. MUSCULOSKELETAL: Chest examination reveals no tenderness. The back is symmetrical on inspection without obvious abnormality. There is no CVA tenderness to palpation. No joint edema. LOWER EXTREMITIES: Calves are equal size bilaterally and non-tender. No edema. No discoloration. NEURO: Normal sensorium. No sensory or motor deficits noted. SKIN: No rash or jaundice noted. Medical Decision & Procedures ER Provider Diagnostic Interpretation: Chest one view portable Clinical history: Atypical chest pain Comparison study 07/27/2017 Findings the cardiac and mediastinal contours are normal. There is no evidence of focal pulmonary consolidation. There is no evidence of failure. No pleural effusions are visualized. Impression: No active disease in the chest. CHEST COMBO ANGIO DISSECTION CLINICAL HISTORY: Atypical chest pain. Possible aortic dissection. COMPARISON STUDY: September 19, 2017 FINDINGS: A dose reduction technique was utilized according to the principles of ALARA. Unenhanced images were obtained through the chest. The patient was then scanned in a dynamic helical fashion during intravenous administration 119 cc of Optiray 320. MIP imaging was performed. Unenhanced images reveal no evidence of acute aortic hematoma. Postcontrast images reveal no thyroid masses. There is no evidence of thoracic aortic aneurysm. There is no evidence of thoracic aortic dissection. There are persistent bilateral pulmonary filling defects consistent with bilateral pulmonary embolism. These remain similar to the preceding study. No definite new emboli are delineated. There are no pathologically enlarged axillary mediastinal or hilar lymph nodes. There is borderline esophageal wall thickening similar to the preceding study. There is severe hepatic steatosis. There is a stable 13 mm right lobe hepatic nodule. There are no pleural effusions. There is no acute parenchymal consolidation. There is stable mild diffuse peribronchial thickening. There is bilateral gynecomastia IMPRESSION: 1. No evidence of thoracic aortic aneurysm or thoracic aortic dissection 2. Bilateral pulmonary embolism similar to the preceding study 3. Stable mild diffuse peribronchial thickening 4. Severe hepatic steatosis. Stable 13 mm right hepatic lobe nodule Laboratory Results 09/25/17 10:51 Red Blood Count 4.42, Mean Corpuscular Volume 85.1, Mean Corpuscular Hemoglobin 26.7, Mean Corpuscular Hemoglobin Concent 31.4, Mean Platelet Volume 10.2, Neutrophils (%) (Auto) 67.7, Lymphocytes (%) (Auto) 20.8, Monocytes (%) (Auto) 9.3, Eosinophils (%) (Auto) 1.4, Basophils (%) (Auto) 0.4, Neutrophils # (Auto) 3.49, Lymphocytes # (Auto) 1.07, Monocytes # (Auto) 0.48, Eosinophils # (Auto) 0.07, Basophils # (Auto) 0.02 09/25/17 10:51 Test 09/25/17 10:51 09/25/17 10:58 09/25/17 12:57 White Blood Count 5.15 K/uL (4.8-10.8) Red Blood Count 4.42 M/uL (4.7-6.1) Hemoglobin 11.8 g/dL (14.0-18.0) Hematocrit 37.6 % (42-52) Mean Corpuscular Volume 85.1 fL (80-100) Mean Corpuscular Hemoglobin 26.7 pg (25-34) Mean Corpuscular Hemoglobin Concent 31.4 g/dl (32-36) Platelet Count 245 K/uL (130-400) Mean Platelet Volume 10.2 fL (7.4-10.4) Neutrophils (%) (Auto) 67.7 % Lymphocytes (%) (Auto) 20.8 % Monocytes (%) (Auto) 9.3 % Eosinophils (%) (Auto) 1.4 % Basophils (%) (Auto) 0.4 % Neutrophils # (Auto) 3.49 K/uL (1.4-6.5) Lymphocytes # (Auto) 1.07 K/uL (1.2-3.4) Monocytes # (Auto) 0.48 K/uL (0.11-0.59) Eosinophils # (Auto) 0.07 K/uL (0-0.5) Basophils # (Auto) 0.02 K/uL (0-0.2) RDW Standard Deviation 59.3 fL (36.4-46.3) RDW Coefficient of Variation 18.8 % (11.5-14.5) Immature Granulocyte % (Auto) 0.4 % Immature Granulocyte # (Auto) 0.02 K/uL (0.00-0.02) Nucleated RBC Absolute Count (auto) 0.00 K/uL (0-0) Nucleated Red Blood Cells % 0.0 % Prothrombin Time 46.8 SECONDS (9.0-12.0) Prothromb Time International Ratio 4.6 (0.9-1.1) Heparin Anti-Xa Act, Low Molec Wt 1.32 IU/ML (0 - <0.10) Anion Gap 12.0 mmol/L (3-11) Est Creatinine Clear Calc Drug Dose 165.8 ml/min Estimated GFR () 136.5 Estimated GFR (Non- 117.8 BUN/Creatinine Ratio 9.7 (10-20) Calcium Level 8.5 mg/dl (8.5-10.1) Total Bilirubin 0.9 mg/dl (0.2-1) Direct Bilirubin 0.4 mg/dl (0-0.2) Aspartate Amino Transf (AST/SGOT) 93 U/L (15-37) Alanine Aminotransferase (ALT/SGPT) 67 U/L (12-78) Alkaline Phosphatase 121 U/L (45-117) Total Creatine Kinase 29 U/L (39-308) Creatine Kinase MB < 1.0 ng/ml (0.5-3.6) Creatine Kinase MB Ratio (0-3.0) Total Protein 6.7 gm/dl (6.4-8.2) Albumin 2.9 gm/dl (3.4-5.0) Lipase 144 U/L (73-393) Bedside Troponin I < 0.030 ng/ml (0-0.045) Troponin I < 0.015 ng/ml (0-0.045) Pro time 46.8 INR 4.6 Anti-10 a low molecular weight heparin 1.32 Glucose 94 BUN 8 Creatinine 0.78 Sodium 141 Potassium 3.3 Chloride 105 CO2 24 Anion gap 12 Calcium 8.5 Total protein 6.7 Albumin 2.9 Bili total 0.9 Bili direct 0.4 AST 93 ALT 67 ALK 121 CK 29 Lipase 144 MB less than 1 troponin less than 0.015 White blood cell count 5.15 hemoglobin 11.8 hematocrit 37.6 platelets 245 Medications Administered Medications (Trade) Dose Ordered Sig/Reena Route Start Time Stop Time Status Last Admin Dose Admin Famotidine (Pepcid Tab) 20 mg NOW STAT PO 8/20/18 11:03 09/25/17 11:08 DC 09/25/17 11:35 20 MG Sucralfate (Carafate Tab) 1 gm NOW STAT PO 09/25/17 11:03 09/25/17 11:08 DC 09/25/17 11:34 1 GM Al Hydroxide/Mg Hydroxide (Maalox Susp) 30 ml STK-MED ONCE .ROUTE 09/25/17 11:27 09/25/17 11:28 DC 09/25/17 11:35 30 ML Lidocaine HCl (Viscous Lidocaine 2% Soln) 20 ml STK-MED ONCE .ROUTE 09/25/17 11:28 09/25/17 11:29 DC 09/25/17 11:36 20 ML Acetaminophen (Tylenol Tab) 1,000 mg NOW STAT PO 09/25/17 12:05 09/25/17 12:06 DC 09/25/17 12:20 1,000 MG Morphine Sulfate (MoRPHine SULFATE INJ) 8 mg NOW STAT IV 09/25/17 12:57 09/25/17 12:58 DC 09/25/17 13:39 8 MG Ondansetron HCl (Zofran Inj) 4 mg NOW STAT IV 09/25/17 12:57 09/25/17 12:58 DC 09/25/17 13:39 4 MG Sodium Chloride 1,000 ml @ 999 mls/hr Q1H1M STAT IV 09/25/17 13:55 09/25/17 14:55 DC 09/25/17 13:55 999 MLS/HR Albuterol (Ventolin Hfa Inhaler) 2 puffs NOW ONCE INH 09/25/17 15:30 09/25/17 15:31 DC 09/25/17 16:15 2 PUFFS ECG Per My Interpretation Indication: chest pain Rate (beats per minute): 83 Rhythm: normal sinus Findings: no acute ischemic change, no ectopy Change: no significant change Medical Decision This is a 32-year-old male who presents the emergency department complaining of chest pain. This is essentially a downtime [employer] chart and IT was consulted due to the fact that we were unable to obtain this patient's laboratory work and [employer]. In addition the patient's chest x-ray and CAT scan of the chest had to be obtained by radiology. Patient was recently placed on Lovenox as well as Coumadin for PEs diagnosed in the emergency department. The patient had been sent home. The patient called an ambulance this morning complaining of chest pain that has been ongoing since Monday night. I will note that the patient's troponin is normal. If this were related to cardiac ischemia I would expect the patient's troponin to be elevated. The patient related he is continued to have chest pain and describes his worst chest pain of his life. Based on this and using shared medical decision making both the patient and his mother he was sent for CAT scan of the chest however I will note this is the ninth CAT scan this patient has received this year. CT does not show any acute process he does have PEs however his Coumadin is therapeutic. I recommended holding Coumadin for 2 days having follow-up with the Coumadin clinic. Patient has a follow-up appointment on Monday. I do believe he is well enough to be discharged home for follow-up with cardiology. Patient and mother are in agreement with the treatment plan. Impression Primary Impression: Chest wall pain Departure Information Dispostion Home / Self-Care Referrals Noemy Lombardi DO (PCP) Patient Instructions My [facility]
[2017-09-25] MEDS ORDERED: ALBUTEROL HFA 8 GM INHALER INH ONE (15:30)
[2017-09-25 16:20] VITALS: BP 150/111; PULSE 86; O2SAT 98
== END 2017-09-25 16:25 | disposition home or self-care (01) ==
LOC: EDBD 10:29 → C.EDB 10:30
DX: R07.89 Other chest pain (principal); J45.909 Unspecified asthma, uncomplicated; F43.10 Post-traumatic stress disorder, unspecified; Z79.01 Long term (current) use of anticoagulants; Z51.81 Encounter for therapeutic drug level monitoring